=== PATIENT | male | born 1960 | race Caucasian/White ===

== ENCOUNTER 2018-10-07 16:13 | Emergency (ER) | payer MEDICAID, SELFPAY ==
[2018-10-07 16:14] VITALS: BP 184/98; PULSE 100; RESP 18; TEMP 36.6; O2SAT 93; BMI 25.7
--- NOTE | 2018-10-07 16:30 | ED.VISSUMM ---
- ER Visit Summary Date of Service: 10/07/18 Chief Complaint: Laceration History of Present Illness: The patient is a 58 M who cut his right index finger just prior to arrival when working on his lawnmower. Unsure of his tetanus status. No other associated complaints. Physical Examination: Patient has a 1.5 cm full-thickness linear laceration over his dorsal right index finger just proximal to the PIP joint. Extension intact. Neurovascular intact distally. No deformities. No other pertinent findings. Test Results: None indicated Emergency Department Course and Treatment: Digital block performed. Finger tourniquet applied. Wound was cleaned and explored. No deep structures are involved. Wound was closed with simple interrupted sutures. Patient was placed on Keflex prophylaxis. Tetanus was updated. Patient was given wound care instructions and will follow-up in 10 days. Return right away for any signs of infection or other complications. Treatment Plan: As above Disposition: Discharge Impression: 1. Laceration 1.5 cm right index finger This note was generated with [employer] dictation software. It may contain incorrect words, spelling, and punctuation that were not noted in review of the chart prior to signing ED Disposition - Plan for ED Patient: Referrals: Basim Palm DO [Primary Care Provider] -
--- NOTE | 2018-10-07 16:32 | ED.DEP ---
ED Disposition - Plan for ED Patient: Instructions: ED Laceration Hand Prescriptions: Cephalexin [Keflex] 500 mg PO Q6 #20 cap Referrals: Basim Palm DO [Primary Care Provider] - 10-14 Days suture removal
[2018-10-07] MEDS: Diphth,Pertuss(Acell),Tet Vac 0.5 ML Vial IM (16:41)
[2018-10-07] MEDS: Cephalexin 250 MG Capsule 500 MG PO (16:41)
== END 2018-10-07 17:00 | disposition home or self-care (01) ==
LOC: ED 16:39
PROVIDERS: Emergency Provider Emergency Medicine; Family Provider Student in an Organized Health Care Education/Training Program; PCP Student in an Organized Health Care Education/Training Program
DX: S61.210A Laceration without foreign body of right index finger without damage to nail, initial encounter (principal); W45.8XXA Other foreign body or object entering through skin, initial encounter; Y93.9 Activity, unspecified; Y92.89 Other specified places as the place of occurrence of the external cause; Y99.9 Unspecified external cause status; Z23 Encounter for immunization; Z72.0 Tobacco use
CPT/HCPCS: 12001; 90471; 90715; 99284

== ENCOUNTER 2018-10-26 07:40 | Emergency (ER) | payer MEDICAID, SELFPAY ==
[2018-10-26 07:41] VITALS: BP 155/91; PULSE 75; RESP 18; TEMP 36.6; O2SAT 100; BMI 24.3
--- NOTE | 2018-10-26 07:46 | ED.VIS.GEN ---
History of Present Illness Chief Complaint: Wound Check Informant: Patient Onset: Days - Sutures placed 19 days ago. Patient presents to have sutures removed Context: - - Not applicable Timing: Continuous Quality: No signs or symptoms of infection Location: PIP joint right index finger Current Severity: No discomfort Maximum Severity: Not applicable Worsened by: Nothing Relieved by: Nothing Associated Symptoms: No associated symptoms Narrative: Patient was seen on October 07 and had [address] Agusto Goel for laceration over the PIP joint right index finger. He presents today for removal. He denies erythema, warmth, induration, fluctuance or red streak. He denies limitation of movement. He states the finger is slightly stiff. Prior similar symptoms: Yes Recent Illness/Hospitalization: Yes Past Medical History - Allergies and Home Meds Allergies/Adverse Reactions: Allergies No Known Allergies Allergy (Verified 10/26/18 07:43) Primary Care Physician: Basim Palm DO [Primary Care Provider] - Prior records reviewed: Yes - Review ER visit for laceration Surgical History: no surgical history Lives: Alone Smoking Status: Current every day smoker Drugs: None Review of Systems Musculoskeletal: Denies: Myalgias, Swelling, Extremity Pain Neurological: Denies: Weakness, Parasthesia, Numbness Hematologic: Denies: Easy bruising, Easy bleeding Allergy: Denies: Uticaria, Swelling of the mouth Physical Exam Vital Signs/Narrative: Vital Signs Temp Pulse Resp BP Pulse Ox 10/26/18 07:41 97.9 F 75 18 155/91 H 100 Inital Vital Signs reviewed: Yes General: Well nourished, Well developed, No Acute Distress Head: Normocephalic, Atraumatic Eyes: Perrl, EOMI. Negative for: Pale conjunctiva, Scleral icterus, - ENT: Moist mucous membranes, No rhinorrhea Neck: Supple, Nontender Cardiovascular: Regular rate, Regular rhythm Respiratory: No distress Extremities: Nontender, No edema, - - Laxity of collateral ligament with stress testing. Full extension and flexion of the right index finger. Cap refill is normal. Sensations intact. Skin: Normal color, No rash, - - Healing wound with out evidence of infection. Negative for: Cyanosis, Jaundice Neurological: Alert, Oriented x3, Cranial nerves II-XII grossly intact, Normal Gait. Negative for: Normal Strength, Normal Sensation Psychological: Normal affect Diagnostic/Tx/Re-eval - Medical Decision Making Patient presents for wound evaluation and removal of stitches. There is no evidence of infection. Sutures to be removed. Discharge to home in stable condition with appropriate home-going instructions. ED Disposition - Plan for ED Patient: Disposition: Home or Assisted Living Diagnosis: Visit for suture removal, Encounter for evaluation of wound Instructions: ED Wound Check Sutr Remove No Infec Referrals: Basim Palm DO [Primary Care Provider] - As Needed
== END 2018-10-26 08:00 | disposition home or self-care (01) ==
PROVIDERS: Emergency Provider Emergency Medicine; Family Provider Student in an Organized Health Care Education/Training Program; PCP Student in an Organized Health Care Education/Training Program
DX: Z48.02 Encounter for removal of sutures (principal); F17.200 Nicotine dependence, unspecified, uncomplicated
CPT/HCPCS: 99282

== ENCOUNTER 2019-05-13 09:11 | Emergency (ER) | payer MEDICAID, SELFPAY ==
[2019-05-13 09:12] VITALS: BP 160/111; PULSE 77; RESP 16; TEMP 36.7; O2SAT 98; BMI 23.1
--- NOTE | 2019-05-13 09:34 | ED.DCSUM_ITS ---
History of Present Illness Chief Complaint: Dental Informant: Patient Onset: Weeks Maximum Severity: Mild Narrative: Presents complaining of dental decay involving the lower incisor type teeth he has had for a long time he is having pain there for some time as well he is scheduled see a dentist he reports the first of the year he indicates he has no way to manage his pain he came to the emergency department, he did not contact his dentist about the persistence of the pain, he has a prior history for lymphoma he believes and he required chemotherapy that condition is in his distant past he is otherwise been in good health Past Medical History - Allergies and Home Meds Allergies/Adverse Reactions: Allergies No Known Allergies Allergy (Verified 05/13/19 09:25) Primary Care Physician: Cha Powell PA [Primary Care Provider] - Past Medical History: - - History of lymphoma and chemotherapy in the distant past Surgical History: no surgical history Smoking Status: Current every day smoker Review of Systems General: Denies: Chills, Fever, Sweats Eyes: Denies: Visual changes - bilaterally, Diplopia ENT: Denies: Rhinorrhea, Sore throat Cardiovascular: Denies: Chest pain, Palpitations Respiratory: Denies: Dyspnea, Cough, Dyspnea on exertion Gastrointestinal: Denies: Abdominal pain, Nausea, Vomiting, Diarrhea, Melena, Hematochezia Genitourinary: Denies: Dysuria, Hematuria, Frequency Musculoskeletal: Denies: Back pain, Extremity Pain Skin: Denies: Rash, Wounds Neurological: Denies: Headache, Weakness, Numbness Physical Exam Vital Signs/Narrative: Vital Signs Temp Pulse Resp BP Pulse Ox 05/13/19 09:12 98.1 F 77 16 160/111 H 98 General: Well nourished, Well developed, No Acute Distress Head: Normocephalic, Atraumatic Eyes: Perrl, EOMI ENT: Moist mucous membranes, No rhinorrhea, - - He has marked dental decay invol ving the lower mandibular incisor teeth on both sides he has cavities and some his other teeth and some other extractions the airways intact for the mouth unremarkable neck is supple there is no swelling fullness or signs of deep- seated inch issues or infections Neck: Supple, Nontender Cardiovascular: Regular rate, Regular rhythm, No murmurs Respiratory: No distress, CTA bilaterally, Chest nontender Abdomen: Soft, Nontender, Nondistended, Normal bowel sounds Back: Nontender, Normal Inspection Extremities: Nontender, No edema Skin: Normal color, No rash Neurological: Alert, Oriented x3, Cranial nerves II-XII grossly intact, Normal Strength, Normal Sensation Psychological: Normal affect, Normal Mood Diagnostic/Tx/Re-eval - Medical Decision Making Given all the above the patient clearly has dental decay he may have an element of dental infection there is no signs of abscess he is eating and drinking well he also has issues of pain management, he will be started on Pen-Vee K Naprosyn I explained to him the only way to really address this condition is to have those teeth extracted and that cannot be done through the emergency department nor can the emergency department in an ongoing fashion manage his chronic pain he should seek his further management from his dental healthcare providers and other outpatient providers Home stable Final impression dental decay with pain ED Disposition - Plan for ED Patient: Diagnosis: Pain, dental Instructions: Dental Cavity, Dental Pain Prescriptions: Naproxen [Naprosyn] 500 mg PO BID PRN #20 tab Prescription Printed Penicillin Vk [Pen-Vee K 250MG] 500 mg PO 4X/DAY #40 tab Prescription Printed Referrals: Cha Powell PA [Primary Care Provider] -
== END 2019-05-13 09:48 | disposition home or self-care (01) ==
LOC: ED 09:26
PROVIDERS: Emergency Provider Emergency Medicine; Family Provider Physician Assistant; PCP Physician Assistant
DX: K02.9 Dental caries, unspecified (principal); Z85.72 Personal history of non-Hodgkin lymphomas; Z92.21 Personal history of antineoplastic chemotherapy; F17.200 Nicotine dependence, unspecified, uncomplicated
CPT/HCPCS: 99282

== ENCOUNTER 2021-04-02 21:03 | Inpatient (IN) | payer MEDICAID, SELFPAY ==
[2021-04-02 21:04] VITALS: BP 79/57; PULSE 74; RESP 15; TEMP 36.4; O2SAT 93; BMI 24.0
--- NOTE | 2021-04-02 21:14 | EKG12_ITS ---
Test Reason : DYSRHYTHMIA Blood Pressure : / mmHG Vent. Rate : 064 BPM Atrial Rate : 064 BPM P-R Int : 150 ms QRS Dur : 098 ms QT Int : 470 ms P-R-T Axes : 044 066 072 degrees QTc Int : 484 ms Sinus rhythm with Premature atrial complexes Nonspecific ST and T wave abnormality Prolonged QT Abnormal ECG Confirmed by BRITTANY WILD, LEON ([id number]), mapping editor SEJAL KRAFT ([id number]) on 04/04/2021 8:13:05 AM Referred By: JESSICA Confirmed By:LEON SOTO MD
[2021-04-02] MEDS: 0.9% Normal Saline 1,000 ML 1000 ML IV (21:18)
[2021-04-02 21:22] LABS: Absolute Lymphocyte Count 0.71 X10^3/uL (0.83-4.51); Absolute Neutrophil Count 3.7 X10^3/uL (2.0-7.7); Basophil# 0.03 X10^3/uL; Basophil% 0.6 % (0-1); Eosinophil# 0.02 X10^3/uL; Eosinophils% 0.4 % (0-5); Hematocrit 43.6 % (40-54); Lymphocyte # 0.71 X10^3/ul (0.83-4.51); Lymphocyte % 14.3 % (19-41); Mean Corp Hgb Conc 34.4 g/dL (32-36); Mean Corpuscular Hgb 32.8 pg (27.0-32.0); Mean Corpuscular Volume 95.2 fL (80-94); Mean Platelet Vol. 9.1 fl (6.2-12.0); Monocyte# 0.48 X10^3/uL; Monocyte% 9.7 % (0-10); NRBC Flagged by Analyzer 0 % (0-5); Neutrophil % 74.6 % (47-70); Platelet Count 258 K/mm3 (150-450); RBC Distribution Width CV 12.5 % (11.6-14.6); RBC Distribution Width SD 44.2 fl (35.1-43.9); Red Blood Count 4.58 M/mm3 (4.6-6.2)
[2021-04-02 21:28] LABS: International Normalized Ratio 1.1; Partial Thromboplast Time 31.4 Seconds (24.1-36.2); Prothrombin Time (Protime)PT. 13.2 SECONDS (11.7-14.9)
[2021-04-02 21:32] VITALS: BP 91/65; PULSE 67; RESP 18; O2SAT 94
[2021-04-02 21:45] LABS: ALB/GLOB Ratio 0.9 RATIO (0.9-2.4); AST(SGOT) 37 U/L (15-37); Alanine Aminotransfer ALT/SGPT 27 U/L (16-61); Albumin, Serum 3.6 g/dL (3.2-5.0); Alkaline Phosphatase 121 U/L (45-117); Anion Gap 8 (5-15); BUN 25 mg/dL (7-18); BUN/Creat Ratio 11.6 RATIO (10-20); Calcium,Total 8.9 mg/dL (8.5-10.1); Chloride 96 mmol/L (98-107); Creatinine, Serum 2.15 mg/dL (0.70-1.30); EST Glomerular Filtration Rate 33 mL/min (>60); Est Glom Filt Rate - Afr Amer 40 mL/min (>60); Estimated Creatinine Clearance 36.78 ml/min; Globulin 4.1 g/dL (2.2-4.2); Glucose 127 mg/dL (74-106); Potassium 3.6 mmol/L (3.5-5.1); Protein, Total 7.7 g/dL (6.4-8.2); Sodium Level 130 mmol/L (136-145); Troponin-I HS 17 pg/mL (3.0-78.0)
--- NOTE | 2021-04-02 21:45 | CT_ITS ---
EXAMINATION : Head CT w/out contrast HISTORY : Altered mental status COMPARISON : 07/11/2013. TECHNIQUE : Multiple contiguous axial images were obtained from the skull base to the vertex without intravenous contrast. A radiation dose optimization technique was used for this scan. FINDINGS : The ventricles and sulci are normal in size. There is no evidence for acute intracranial hemorrhage, mass effect, or midline shift. There is no extra-axial fluid collection. There is normal junior-white differentiation, without CT evidence of acute ischemia or infarct. The skull base and calvarium are unremarkable. The orbits are unremarkable. The paranasal sinuses are clear. The mastoid air cells are well-aerated. The soft tissues are unremarkable. Large partially visualized periapical lucency of the left maxillary molars. CT/Brain/Head without Contrast IMPRESSION: No acute intracranial abnormality. Dental abscesses of the left maxillary molars. Electronically Signed: Vargas Wang MD at 22:09 EST Tel , Service support ,
--- NOTE | 2021-04-02 21:50 | RAD_ITS ---
INDICATION: Cough EXAMINATION/TECHNIQUE: X-RAY - XR Chest 1 View COMPARISON: 05/19/2013. FINDINGS: The lungs are clear. The cardiomediastinal silhouette is unremarkable. No pleural effusion or pneumothorax. No acute osseous abnormalities. RAD/Chest 1 View (Portable) IMPRESSION: No acute radiographic abnormalities. Electronically Signed: Vargas Wang MD at 22:09 EST Tel , Service support ,
[2021-04-02 22:06] LABS: Lactic Acid 2.3 mmol/L (0.4-1.9)
[2021-04-02 22:20] VITALS: BP 98/59; PULSE 63; RESP 18; O2SAT 97
--- NOTE | 2021-04-02 22:51 | EX.ED.DYSGE1 ---
HPI History of Present Illness Chief Complaint: Alt LOC Informant: patient and EMS Onset/Context/Timing Onset: Today Context: Sudden Onset Timing: Continuous Quality: Weakness Location: Generalized Worsened by: Nothing Relieved by: Nothing Narrative Narrative: Patient presents with altered mental status and confusion that began today. EMS reports that began approximately 2 hours prior to arrival. Patient states it began rather suddenly. Patient denies any headaches. Patient does admit to some blurred vision. Patient also admits to some subjective chills. Patient states he feels weak all over. Patient also admits to some generalized numbness and tingling. Patient denies any nausea or vomiting. Patient denies any chest pain or shortness of breath. Patient is awake, alert, and oriented to person and place. When I asked him what the date was today he gave me his birthdate. [facility] Medical History (Updated 04/03/21 @ 00:[address] Jonathon Olsen DO) Weakness of left upper extremity Home Medications NK 04/02/21 [History Last Taken Unknown] Allergy/AdvReac Type Severity Reaction Status Date / Time No Known Allergies Allergy Verified 05/13/19 09:25 Surgical History unable to obtain unable to obtain Social History Smoking Status: Current every day smoker tobacco type: cigarettes ROS ROS ED Constitutional Constitutional ED: Reports chills and subjective; Denies fever(s) Eyes Eyes: Reports blurry vision; Denies change in vision ENT ENT ED: Denies rhinorrhea or sore throat Cardiovascular Cardiovascular: Denies chest pain or palpitations Respiratory/Chest Respiratory/Chest: Denies cough or dyspnea Gastrointestinal Gastrointestinal: Denies nausea or vomiting Genitourinary Genitourinary ED: Denies dysuria or hematuria Musculoskeletal Musculoskeletal: Denies back pain or neck pain Integumentary Denies abscess or rash Neurologic Neurologic: Reports weakness; Denies headache(s) Allergic/Immunologic Allergic/Immunologic ED: Denies mouth swelling or urticaria EXAM Physical Exam Const Vital Signs: 04/02/21 21:04 04/02/21 21:10 04/02/21 21:19 Temperature 97.6 F L Temperature Source Temporal Pulse Rate 74 Respiratory Rate 15 Respiratory Effort Normal Non-Labored Respiratory Pattern Normal Blood Pressure 79/57 L Blood Pressure Mean 64 Pulse Ox 93 Oxygen Delivery Method Room Air Room Air 04/02/21 21:32 04/02/21 22:20 04/02/21 23:01 Temperature Temperature Source Pulse Rate 67 63 66 Respiratory Rate 18 18 18 Respiratory Effort Respiratory Pattern Blood Pressure 91/65 98/59 L 122/65 H Blood Pressure Mean 73 72 84 Pulse Ox 94 97 93 Oxygen Delivery Method Room Air Room Air Room Air 04/03/21 00:07 Temperature Temperature Source Pulse Rate 70 Respiratory Rate 18 Respiratory Effort Respiratory Pattern Blood Pressure 124/74 H Blood Pressure Mean 90 Pulse Ox 94 Oxygen Delivery Method Room Air Positive well nourished and well developed General Appearance ED: well developed and NAD HEENT Reports moist mucous membranes Eyes PERRL and EOMs intact bilaterally Neck supple and no JVD Resp normal respiratory effort and clear to auscultation bilaterally Cardio regular rate and regular rhythm GI normal to inspection, nondistended, normoactive bowel sounds and non-tender Palpation: soft Extremity normal to inspection Neuro CN's II-XII intact bilaterally and no sensory deficits noted Sensorium / Orientation: alert and orientation impaired Skin no rashes or lesions noted MDM MDM MDM Narrative Medical decision making narrative: Patient was given IV fluids. EKG was obtained. On my interpretation, it showed a normal sinus rhythm with a rate of 64 with occasional PACs. IN interval, QRS interval, and QTc intervals were all normal. [place] was normal. There are nonspecific ST-T wave changes. CBC was within normal limits. PT with INR and PTT were normal. Comprehensive metabolic profile showed a sodium of 130. BUN was 25 and creatinine was 2.15. These are increased from prior results. Lactate was elevated 2.3. High-sensitivity troponin was normal at 17. Portable 1 view chest x-ray was obtained. On my interpretation, lung tian are clear. There is normal cardiac silhouette. Bony thorax is normal. There is no acute process noted. Radiologist also interpreted the x-ray and agrees. CT scan of the brain was obtained. There is no acute intracranial abnormality. There are dental abscesses of the left maxillary molars. This was interpreted by the radiologist and reviewed by myself. Urinalysis showed negative leukocyte esterase. There were 5-10 white blood cells. There is 3+ bacteria. Urine cultures were ordered. Blood cultures were ordered. Patient was started on Zosyn and vancomycin. Case was discussed with the hospitalist. He will admit the patient to his service. Patient understood and was agreeable with the plan. All questions were answered. Lab Data Attestation: I reviewed the patient's lab results. Labs: Laboratory Results - last 24 hr 04/02/21 04/02/21 04/02/21 21:08 21:08 21:08 WBC 5.0 RBC 4.58 L Hgb 15.0 Hct 43.6 MCV 95.2 H MCH 32.8 H MCHC 34.4 RDW Std Deviation 44.2 H RDW Coeff of Tony 12.5 Plt Count 258 MPV 9.1 Immature Gran % (Auto) 0.400 Neut % (Auto) 74.6 H Lymph % (Auto) 14.3 L [place] % (Auto) 9.7 Eos % (Auto) 0.4 Baso % (Auto) 0.6 Absolute Neuts (auto) 3.7 Absolute Lymphs (auto) 0.71 L Nucleated RBC % 0 PT 13.2 INR 1.1 APTT 31.4 Sodium 130 L Potassium 3.6 Chloride 96 L Carbon Dioxide 26.0 Anion Gap 8 BUN 25 H Creatinine 2.15 H Estim Creat Clear Calc 36.78 Est GFR (MDRD) Af Amer 40 L Est GFR (MDRD) Non-Af 33 L BUN/Creatinine Ratio 11.6 Glucose 127 H Lactic Acid Calcium 8.9 Total Bilirubin 0.50 AST 37 ALT 27 Alkaline Phosphatase 121 H Troponin I High Sens 17 Total Protein 7.7 Albumin 3.6 Globulin 4.1 Albumin/Globulin Ratio 0.9 Urine Color Urine Clarity Urine pH Ur Specific [place] Urine Protein Urine Glucose (UA) Urine Ketones Urine Occult Blood Urine Nitrite Urine Bilirubin Urine Urobilinogen Ur Leukocyte Esterase Urine RBC Urine WBC Ur Squamous Epith Cells Urine Bacteria Hyaline Casts Urine Mucus 04/02/21 04/02/21 04/02/21 21:08 23:15 23:15 WBC RBC Hgb Hct MCV MCH MCHC RDW Std Deviation RDW Coeff of Tony Plt Count MPV Immature Gran % (Auto) Neut % (Auto) Lymph % (Auto) [place] % (Auto) Eos % (Auto) Baso % (Auto) Absolute Neuts (auto) Absolute Lymphs (auto) Nucleated RBC % PT INR APTT Sodium Potassium Chloride Carbon Dioxide Anion Gap BUN Creatinine Estim Creat Clear Calc Est GFR (MDRD) Af Amer Est GFR (MDRD) Non-Af BUN/Creatinine Ratio Glucose Lactic Acid 2.3 H* Calcium Total Bilirubin AST ALT Alkaline Phosphatase Troponin I High Sens 14 Total Protein Albumin Globulin Albumin/Globulin Ratio Urine Color Yellow Urine Clarity Clear Urine pH 5.0 Ur Specific [place] 1.020 Urine Protein 30 H Urine Glucose (UA) Normal Urine Ketones 5 H Urine Occult Blood 50 H Urine Nitrite Negative Urine Bilirubin Negative Urine Urobilinogen Normal Ur Leukocyte Esterase Negative Urine RBC 0 SEEN Urine WBC 5-10 SEEN Ur Squamous Epith Cells 0 SEEN Urine Bacteria 3+ Hyaline Casts 50-100 SEEN Urine Mucus 2+ Radiography Chest X-Ray - ED: 1 View, Read by ED Physician, Read by Radiologist and Normal Diagnostic Testing: Clinical Impression(s) from Imaging Studies Brain CT 04/02/21 21:45 IMPRESSION: No acute intracranial abnormality. Dental abscesses of the left maxillary molars. Electronically Signed: Vargas Wang MD at 22:09 EST Tel , Service support , Chest X-Ray 04/02/21 21:50 IMPRESSION: No acute radiographic abnormalities. Electronically Signed: Vargas Wang MD at 22:09 EST Tel , Service support , EKG Initial EKG: Attestation: I personally reviewed and interpreted this EKG as follows: Interpretation: Sinus Rhythm (64), No Acute Injury Pattern and Non-Specific ST Changes Prior EKG tracings: not available for review Discharge Plan Dx/Rx/DC Orders Clinical Impression: Altered mental status, Sepsis, Acute kidney injury Disposition Disposition: Acute Care [facility]
[2021-04-02 23:01] VITALS: BP 122/65; PULSE 66; RESP 18; O2SAT 93
--- NOTE | 2021-04-02 23:02 | ED.RN ---
PT UNABLE TO VOID ON HIS HOME AFTER MULTIPLE ATTEMPTS,WILL STRAIGHT CATH.
[2021-04-02 23:20] LABS: Red Blood Cells-Urine 0 SEEN /hpf (0-5); Squamous Epithelial Cells - UA 0 SEEN /hpf (0-5)
[2021-04-02 23:26] LABS: Color, Urine Yellow (Yellow); Glucose, Dipstick Normal (Normal); Ketone-Dipstick 5 mg/dl (Negative); Leukocyte Esterase-Dipstick Negative /ul (Negative); Nitrite-Dipstick Negative (Negative); Occult Blood-Urine 50 /ul (Negative); Protein-Dipstick 30 mg/dl (Negative); Urine Bilirubin Dipstick Negative (Negative); Urine Clarity Clear (Clear); Urine Urobilinogen Normal (Normal)
[2021-04-02 23:46] LABS: Troponin-I HS 14 pg/mL (3.0-78.0)
[2021-04-02 23:56] LABS: Bacteria 3+ /hpf (None Seen); Hyaline Cast 50-100 SEEN /lpf (0-5); Mucous, Urine 2+ /hpf (<or=2+); White Blood Cells 5-10 SEEN /hpf (0-5)
[2021-04-03] VITALS (13 sets, daily range): BP systolic 124–153; BP diastolic 65–85; PULSE 64–85; RESP 16–18; TEMP 36.1–37.2; O2SAT 94–98; BMI 20.9
--- NOTE | 2021-04-03 00:59 | HP.PCM.HOS_ITS ---
HPI - General General Date of Admission: 04/03/21 Date of Service: 04/03/21 Chief Complaint: confusion. malaise HPI Narrative CAITIE JIN, is a 60 M who presents presents with general malaise and weakness. Additionally, patient was noted to be confused as well. Patient stated the symptoms began on the seventh. Feels short of breath and weak all over. Complaint to the emergency room physician about blurred vision. Patient denies any COVID-19 contacts but has not been vaccinated for COVID-19. FORMERLY [facility] Medical History Weakness of left upper extremity Home Medications NK 04/02/21 [History Last Taken Unknown] Allergy/AdvReac Type Severity Reaction Status Date / Time No Known Allergies Allergy Verified 05/13/19 09:25 unable to obtain Surgical History unable to obtain Social History Smoking Status: Current every day smoker tobacco type: cigarettes ROS UMM Narrative Has chronic left arm weakness due to some infection that he had. Cannot tell me specifically what that was but he stated that may have been at [facility]. Did develop some swelling on his right side of his neck that he said began a week ago. All review of systems were negative except as mentioned above in the history of present illness and the other review of systems. But reliability is limited given the patient's confusion Vital Signs Vital Signs Vital Signs: 04/02/21 21:04 04/02/21 21:10 04/02/21 21:19 Temperature 36.4 C L Temperature Source Temporal Pulse Rate 74 Respiratory Rate 15 Respiratory Effort Normal Non-Labored Respiratory Pattern Normal Blood Pressure 79/57 L Blood Pressure Mean 64 Pulse Ox 93 Oxygen Delivery Method Room Air Room Air 04/02/21 21:32 04/02/21 22:20 04/02/21 23:01 Temperature Temperature Source Pulse Rate 67 63 66 Respiratory Rate 18 18 18 Respiratory Effort Respiratory Pattern Blood Pressure 91/65 98/59 L 122/65 H Blood Pressure Mean 73 72 84 Pulse Ox 94 97 93 Oxygen Delivery Method Room Air Room Air Room Air 04/03/21 00:07 Temperature Temperature Source Pulse Rate 70 Respiratory Rate 18 Respiratory Effort Respiratory Pattern Blood Pressure 124/74 H Blood Pressure Mean 90 Pulse Ox 94 Oxygen Delivery Method Room Air Weight Weight: 76.2 kg Body Mass Index (BMI) 24.0 Physical Exam Const Constitutional Narrative: Oriented to place and date. Does not follow commands properly. Does not establish eye contact. Afebrile HEENT normocephalic and hearing grossly normal bilaterally HEENT Narrative: Mucous membranes dry Eyes EOMs intact bilaterally Eyes Narrative: No icterus Neck Neck Narrative: Discrete swelling on right lateral neck that is nontender without induration. Resp normal respiratory effort, no retractions and no use of accessory muscles Cardio regular rate, regular rhythm, S1 normal heart sound and S2 normal heart sound GI normal to inspection, nondistended, normoactive bowel sounds, soft to palpation, non-tender and non-distended Extremity normal to inspection and no clubbing, cyanosis or edema Skin no rashes or lesions noted and no wounds Neuro Neuro Narrative: Does not follow commands correctly. Moves his right upper and bilateral lower extremities spontaneously. Has difficulty moving his left arm. Sensorium / Orientation: awake and alert Results Lab / Micro Data Attestation: I reviewed the patient's lab results. Result Diagrams: 04/02/21 21:08 04/02/21 21:08 Labs: Laboratory Results - last 24 hr 04/02/21 21:08: WBC 5.0, RBC 4.58 L, Hgb 15.0, Hct 43.6, MCV 95.2 H, MCH 32.8 H, MCHC 34.4, RDW Std Deviation 44.2 H, RDW Coeff of Tony 12.5, Plt Count 258, MPV 9.1, Immature Gran % (Auto) 0.400, Neut % (Auto) 74.6 H, Lymph % (Auto) 14.3 L, [place] % (Auto) 9.7, Eos % (Auto) 0.4, Baso % (Auto) 0.6, Absolute Neuts (auto) 3.7, Absolute Lymphs (auto) 0.71 L, Nucleated RBC % 0 04/02/21 21:08: PT 13.2, INR 1.1, APTT 31.4 04/02/21 21:08: Sodium 130 L, Potassium 3.6, Chloride 96 L, Carbon Dioxide 26.0, Anion Gap 8, BUN 25 H, Creatinine 2.15 H, Estim Creat Clear Calc 36.78, Est GFR (MDRD) Af Amer 40 L, Est GFR (MDRD) Non-Af 33 L, BUN/Creatinine Ratio 11.6, Glucose 127 H, Calcium 8.9, Total Bilirubin 0.50, AST 37, ALT 27, Alkaline Phosphatase 121 H, Troponin I High Sens 17, Total Protein 7.7, Albumin 3.6, Globulin 4.1, Albumin/Globulin Ratio 0.9 04/02/21 21:08: Lactic Acid 2.3 H* 04/02/21 23:15: Urine Color Yellow, Urine Clarity Clear, Urine pH 5.0, Ur Specific [place] 1.020, Urine Protein 30 H, Urine Glucose (UA) Normal, Urine Ketones 5 H, Urine Occult Blood 50 H, Urine Nitrite Negative, Urine Bilirubin Negative, Urine Urobilinogen Normal, Ur Leukocyte Esterase Negative, Urine RBC 0 SEEN, Urine WBC 5-10 SEEN, Ur Squamous Epith Cells 0 SEEN, Urine Bacteria 3+, Hyaline Casts 50-100 SEEN, Urine Mucus 2+ 04/02/21 23:15: Troponin I High Sens [address] 04/02/21 21:45 IMPRESSION: No acute intracranial abnormality. Dental abscesses of the left maxillary molars. Electronically Signed: Vargas Wang MD at 22:09 EST Tel , Service support , Chest X-Ray 04/02/21 21:50 IMPRESSION: No acute radiographic abnormalities. Electronically Signed: Vargas Wang MD at 22:09 EST Tel , Service support , Assessment & Plan Assessment/Plan (1) Sepsis: QUALIFIERS: Sepsis type: sepsis due to unspecified organism Sepsis acute organ dysfunction status: with acute organ dysfunction Severe sepsis acute organ dysfunction type: acute renal failure Acute renal failure type: unspecified Severe sepsis shock status: without septic shock Qualified Code(s): A41.9 - Sepsis, unspecified organism; R65.20 - Severe sepsis without septic shock; N17.9 - Acute kidney failure, unspecified (2) Altered mental status: QUALIFIERS: Altered mental status type: delirium Qualified Code(s): R41.0 - Disorientation, unspecified (3) Acute kidney injury: PLAN: 1. Sepsis * qSOFA score of 2 for change in mental status and hypotension. * Sources not identified at this time. * I do not feel the patient has urinary tract infection so I do not feel that is the source * Check him for COVID-19, follow-up blood cultures, urine culture * But I am also very concerned about his confusion though he is alert and oriented x3 he still confused. * Patient relates that he had some kind of infection that caused him to have left-sided weakness but cannot specify what that was. * So ordered a lumbar puncture to evaluate * Patient will be on antibiotics with vancomycin, ceftriaxone, azithromycin and dexamethasone in case is a meningitis type picture. * Consult infectious disease 2. Change in mental status * Possibilities could be from sepsis plus minus meningitis/encephalitis versus stroke * Stroke work-up with MRI, echocardiogram, therapy evaluation * Start aspirin, but hold until lumbar puncture can be performed 3. Acute kidney injury * This is presumed. Last creatinine was normal back in 2013 * If it is acute then is likely prerenal as he appears clinically dry * IV fluids * And monitor 4. VTE prophylaxis: SCDs for now pending the lumbar puncture. Charges/Coding Visit Charges Inpatient E&M: 13712 Init Hosp L3
[2021-04-03 01:19] LABS: Reflex Lactate? Y
--- NOTE | 2021-04-03 01:41 | ECHOD_ITS ---
Reason For Study: TIA/CVA Procedure This was a 2D Doppler, Color Flow transthoracic echocardiogram. Bubble study performed. Exam performed portable in patient room. Left Ventricle Normal LV size. Left ventricular systolic function is normal. The estimated ejection fraction is 65 %. No evidence for diastolic dysfunction. No regional wall motion abnormalities noted. Right Ventricle Normal RV size. Normal systolic function. Atria Normal left atrium. Normal right atrium. Positive agitated saline contrast study for a right to left interatrial shunt compatible with a small PFO versus ASD. Mitral Valve There is no mitral annular calcification. Normal mitral valve. Trivial mitral valve insufficiency. Tricuspid Valve Normal tricuspid valve. Trivial tricuspid valve insufficiency. Unable to estimate RV systolic pressure due to insufficient tricuspid regurgitant envelope. Aortic Valve Trisinus/trileaflet aortic valve. Mild focal aortic valve calcification. Pulmonic Valve The pulmonic valve is not well visualized. Great Vessels The aortic root is not well visualized. Pericardium/Pleural No pericardial effusion. Medication Performed a rapid injection of agitated mix of 9 cc saline and 1cc air to assess for atrial septal defect. MMode/2D Measurements & Calculations LVIDd: 4.1 cm IVSd: 1.2 cm LA dimension: 2.7 cm LVIDs: 2.8 cm LVPWd: 1.4 cm FS: 30.5 % LAV(MOD-bp): 27.7 ml LA A4 area: 12.9 cm2 RA A4 area: 10.9 cm2 LAV(MOD-bp) Indexed: 14.5 ml/m2 LAV(MOD-sp2): 24.3 ml LAV(MOD-sp4): 28.7 ml Time Measurements MV dec time: 0.33 sec Doppler Measurements & Calculations MV E max perry: 59.1 cm/sec Lat Peak E' Perry: 7.5 cm/sec Med Peak E' Perry: 7.4 cm/sec MV A max perry: 80.2 cm/sec E/E' lat: 7.9 E/E' med: 8.0 MV E/A: 0.74 MV V2 max: 79.4 cm/sec MV P1/2t max perry: 60.0 cm/sec Ao V2 max: 113.6 cm/sec MV max P.5 mmHg MV P1/2t: 85.0 msec Ao max P.2 mmHg MV V2 mean: 46.3 cm/sec MV dec slope: 206.6 cm/sec2 MV mean P.96 mmHg MV V2 VTI: 21.1 cm MVA(P1/2t): 2.6 cm2 LV V1 max: 102.1 cm/sec PA V2 max: 89.6 cm/sec LV V1 max P.2 mmHg ECHO/Echo Complete Interpretation Summary Left ventricular systolic function is normal. The estimated ejection fraction is 65 %. Trivial mitral valve insufficiency. Trivial tricuspid valve insufficiency. Mild focal aortic valve calcification. Unable to estimate RV systolic pressure due to insufficient tricuspid regurgita nt envelope. No evidence for diastolic dysfunction. Positive agitated saline contrast study for a right to left interatrial shunt c ompatible with a small PFO versus ASD. Ordering Physician: Jonathon Michael Referring Physician: Gavin Powell Performed By: Noah Rangel RCS
--- NOTE | 2021-04-03 02:19 | PCM.RX.CS ---
Consult Pharmacy has been consulted to manage selected antiobiotic: Vancomycin Type of Consult: New start Labs: Sodium 130 mmol/L (136-145) L 04/02/21 21:08 Potassium 3.6 mmol/L (3.5-5.1) 04/02/21 21:08 Chloride 96 mmol/L (98-107) L 04/02/21 21:08 Carbon Dioxide 26.0 mmol/L (21.0-32.0) 04/02/21 21:08 Anion Gap 8 (5-15) 04/02/21 21:08 BUN 25 mg/dL (7-18) H 04/02/21 21:08 Creatinine 2.15 mg/dL (0.70-1.30) H 04/02/21 21:08 Est GFR (MDRD) Af Amer 40 mL/min (>60) L 04/02/21 21:08 Est GFR (MDRD) Non-Af 33 mL/min (>60) L 04/02/21 21:08 BUN/Creatinine Ratio 11.6 RATIO (10-20) 04/02/21 21:08 Glucose 127 mg/dL (74-106) H 04/02/21 21:08 Goal Trough: 15-20 mcg/mL Pharmacy Plan for Drug Dosing: Pharmacy Service will continue to monitor and adjust dosing as required. Medications Vancomycin HCl 2,000 mg/ (Sodium Chloride) 540 mls @ 250 mls/hr IV X1 ONE Stop: 04/03/21 02:20 Last Admin: 04/03/21 01:19 Dose: 250 mls/hr Documented by: Vancomycin HCl (Vancomycin) 1,000 mg in 200 mls @ 200 mls/hr IV Q24H EZEQUIEL Follow-Up Labs: Trough Vancomycin Labs to be done on [date and time ordered]: 04/05 @ 0030
[2021-04-03 03:12] LABS: Lactic Acid 0.5 mmol/L (0.4-1.9)
[2021-04-03] MEDS: 0.9% Normal Saline 1,000 ML 150 ML IV (04:12)
[2021-04-03 04:32] LABS: Troponin-I HS 11 pg/mL (3.0-78.0)
[2021-04-03] MEDS: dexAMETHasone 20 MG/5 ML Vial 10 MG IV (05:33)
[2021-04-03] MEDS: Acyclovir 750 MG in Dextrose 5% 250 ML 265 MG IV (05:33)
[2021-04-03 07:10] LABS: Absolute Neutrophil Count 3.9 X10^3/uL (2.0-7.7); Basophil# 0.02 X10^3/uL; Basophil% 0.4 % (0-1); Hematocrit 39.9 % (40-54); Hemoglobin 13.7 g/dL (13.0-16.5); Lymphocyte % 10.4 % (19-41); Mean Corp Hgb Conc 34.3 g/dL (32-36); Mean Corpuscular Hgb 32.1 pg (27.0-32.0); Mean Corpuscular Volume 93.4 fL (80-94); Mean Platelet Vol. 9.4 fl (6.2-12.0); Monocyte# 0.42 X10^3/uL; Monocyte% 8.7 % (0-10); NRBC Flagged by Analyzer 0 % (0-5); Neutrophil # 3.85 X10^3/uL (2.7-7.7); Neutrophil % 80.1 % (47-70); POSITIVE DIFFERENTIAL YES; Platelet Count 236 K/mm3 (150-450); RBC Distribution Width CV 12.5 % (11.6-14.6); Red Blood Count 4.27 M/mm3 (4.6-6.2); White Blood Count 4.8 K/mm3 (4.4-11.0)
[2021-04-03 07:13] LABS: ALB/GLOB Ratio 0.8 RATIO (0.9-2.4); AST(SGOT) 33 U/L (15-37); Alanine Aminotransfer ALT/SGPT 23 U/L (16-61); Albumin, Serum 2.9 g/dL (3.2-5.0); Alkaline Phosphatase 105 U/L (45-117); Anion Gap 5 (5-15); BUN 24 mg/dL (7-18); BUN/Creat Ratio 16.8 RATIO (10-20); Calcium,Total 7.9 mg/dL (8.5-10.1); Chloride 103 mmol/L (98-107); Cholesterol 120 mg/dL (200); Creatinine, Serum 1.43 mg/dL (0.70-1.30); EST Glomerular Filtration Rate 53 mL/min (>60); Est Glom Filt Rate - Afr Amer 64 mL/min (>60); Estimated Creatinine Clearance 56.21 ml/min; Globulin 3.7 g/dL (2.2-4.2); Glucose 107 mg/dL (74-106); High Density Lipoprotein 47 mg/dL; Potassium 3.9 mmol/L (3.5-5.1); Protein, Total 6.6 g/dL (6.4-8.2); Sodium Level 132 mmol/L (136-145); Triglycerides 55 mg/dL; Very Low Density Lipoprotein 11 mg/dL (5-40)
--- NOTE | 2021-04-03 07:15 | PN.HOSP_ITS ---
Objective Data Objective Data Vital Signs: Vital Signs Temp Pulse Resp BP Pulse Ox 97.0 F L 77 18 153/82 H 95 04/03/21 05:30 04/03/21 07:13 04/03/21 05:30 04/03/21 05:30 04/03/21 05:30 Oxygen Delivery Method Room Air Weight: 163 lb 9.328 oz Body Mass Index (BMI) 20.9 Intake & Output: Intake and Output for Last 24 Hours 04/02/21 04/02/21 04/03/21 00:59 23:59 23:59 Intake Total 1110 / 1110 Output Total 300 / 300 Balance 810 / 810 Lab / Micro Data Result Diagrams: 04/02/21 21:08 04/03/21 03:30 Labs: Laboratory Results - last 24 hr 04/02/21 21:08: WBC 5.0, RBC 4.58 L, Hgb 15.0, Hct 43.6, MCV 95.2 H, MCH 32.8 H, MCHC 34.4, RDW Std Deviation 44.2 H, RDW Coeff of Tony 12.5, Plt Count 258, MPV 9.1, Immature Gran % (Auto) 0.400, Neut % (Auto) 74.6 H, Lymph % (Auto) 14.3 L, [place] % (Auto) 9.7, Eos % (Auto) 0.4, Baso % (Auto) 0.6, Absolute Neuts (auto) 3.7, Absolute Lymphs (auto) 0.71 L, Nucleated RBC % 0 04/02/21 21:08: PT 13.2, INR 1.1, APTT 31.4 04/02/21 21:08: Sodium 130 L, Potassium 3.6, Chloride 96 L, Carbon Dioxide 26.0, Anion Gap 8, BUN 25 H, Creatinine 2.15 H, Estim Creat Clear Calc 36.78, Est GFR (MDRD) Af Amer 40 L, Est GFR (MDRD) Non-Af 33 L, BUN/Creatinine Ratio 11.6, Glucose 127 H, Calcium 8.9, Total Bilirubin 0.50, AST 37, ALT 27, Alkaline Phosphatase 121 H, Troponin I High Sens 17, Total Protein 7.7, Albumin 3.6, Globulin 4.1, Albumin/Globulin Ratio 0.9 04/02/21 21:08: Lactic Acid 2.3 H* 04/02/21 23:15: Urine Color Yellow, Urine Clarity Clear, Urine pH 5.0, Ur Specific [place] 1.020, Urine Protein 30 H, Urine Glucose (UA) Normal, Urine Ketones 5 H, Urine Occult Blood 50 H, Urine Nitrite Negative, Urine Bilirubin Negative, Urine Urobilinogen Normal, Ur Leukocyte Esterase Negative, Urine RBC 0 SEEN, Urine WBC 5-10 SEEN, Ur Squamous Epith Cells 0 SEEN, Urine Bacteria 3+, Hyaline Casts 50-100 SEEN, Urine Mucus 2+ 04/02/21 23:15: Troponin I High Sens 14 04/03/21 02:30: Lactic Acid 0.5 04/03/21 03:15: Troponin I High Sens 11 04/03/21 03:30: Sodium 132 L, Potassium 3.9, Chloride 103, Carbon Dioxide 24.0, Anion Gap 5, BUN 24 H, Creatinine 1.43 H, Estim Creat Clear Calc 56.21, Est GFR (MDRD) Af Amer 64, Est GFR (MDRD) Non-Af 53 L, BUN/Creatinine Ratio 16.8, Glucose 107 H, Calcium 7.9 L, Total Bilirubin 0.40, AST 33, ALT 23, Alkaline Phosphatase 105, Total Protein 6.6, Albumin 2.9 L, Globulin 3.7, Albumin/Globulin Ratio 0.8 L, Triglycerides 55, Cholesterol 120, LDL Cholesterol 62, VLDL Cholesterol 11, HDL Cholesterol 47 Micro: Microbiology 04/03/21 02:00 Nasal Secretion SARS-CoV-2 Antigen (Rapid) - Final Radiography Diagnostic Testing: Radiology Impression Brain CT 04/02/21 21:45 IMPRESSION: No acute intracranial abnormality. Dental abscesses of the left maxillary molars. Electronically Signed: Vargas Wang MD at 22:09 EST Tel , Service support , Chest X-Ray 04/02/21 21:50 IMPRESSION: No acute radiographic abnormalities. Electronically Signed: Vargas Wang MD at 22:09 EST Tel , Service support , Assessment & Plan Assessment/Plan (1) Sepsis: QUALIFIERS: Sepsis type: sepsis due to unspecified organism Sepsis acute organ dysfunction status: with acute organ dysfunction Severe sepsis acute organ dysfunction type: acute renal failure Acute renal failure type: unspecified Severe sepsis shock status: without septic shock Qualified Code(s): A41.9 - Sepsis, unspecified organism; R65.20 - Severe sepsis without septic shock; N17.9 - Acute kidney failure, unspecified (2) Altered mental status: QUALIFIERS: Altered mental status type: delirium Qualified Code(s): R41.0 - Disorientation, unspecified (3) Acute kidney injury: PLAN: 1. Sepsis * qSOFA score of 2 for change in mental status and hypotension. * Sources not identified at this time. * I do not feel the patient has urinary tract infection so I do not feel that is the source * Check him for COVID-19, follow-up blood cultures, urine culture * But I am also very concerned about his confusion though he is alert and oriented x3 he still confused. * Patient relates that he had some kind of infection that caused him to have left-sided weakness but cannot specify what that was. * So ordered a lumbar puncture to evaluate * Patient will be on antibiotics with vancomycin, ceftriaxone, azithromycin and dexamethasone in case is a meningitis type picture. * Consult infectious disease 2. Change in mental status * Possibilities could be from sepsis plus minus meningitis/encephalitis versus stroke * Stroke work-up with MRI, echocardiogram, therapy evaluation * Start aspirin, but hold until lumbar puncture can be performed 3. Acute kidney injury * This is presumed. Last creatinine was normal back in 2013 * If it is acute then is likely prerenal as he appears clinically dry * IV fluids * And monitor 4. VTE prophylaxis: SCDs for now pending the lumbar puncture.
[2021-04-03 07:26] LABS: Differential Indicated SCAN CRITERIA MET
--- NOTE | 2021-04-03 11:37 | PCM.RX.CS ---
Consult Pharmacy has been consulted to manage selected antiobiotic: Vancomycin Type of Consult: Follow-up Labs: Sodium 132 mmol/L (136-145) L 04/03/21 03:30 Potassium 3.9 mmol/L (3.5-5.1) 04/03/21 03:30 Chloride 103 mmol/L (98-107) 04/03/21 03:30 Carbon Dioxide 24.0 mmol/L (21.0-32.0) 04/03/21 03:30 Anion Gap 5 (5-15) 04/03/21 03:30 BUN 24 mg/dL (7-18) H 04/03/21 03:30 Creatinine 1.43 mg/dL (0.70-1.30) H 04/03/21 03:30 Est GFR (MDRD) Af Amer 64 mL/min (>60) 04/03/21 03:30 Est GFR (MDRD) Non-Af 53 mL/min (>60) L 04/03/21 03:30 BUN/Creatinine Ratio 16.8 RATIO (10-20) 04/03/21 03:30 Glucose 107 mg/dL (74-106) H 04/03/21 03:30 Microbiology: Microbiology 04/03/21 02:00 Nasal Secretion SARS-CoV-2 Antigen (Rapid) - Final Goal Trough: 15-20 mcg/mL Pharmacy Plan for Drug Dosing: DAILY ASSESSMENT Current Vancomcyin Dose: 1000mg q24h (0100) Number of Doses Received: x1 2000mg ER dose Current Renal Function: SrCr 1.43 Renal Function Trend: SrCr improved from 2.15 Lab/Micro: Any Change in Vanc Plan: due to improving renal function, recommend changing Vancomycin dose from 1000mg q24h, to 750mg q12h starting 04/03/21 at 1300. Trough before the 4th total dose Pending Level: 04/04/21 at 1230 Pharmacy Service will continue to monitor and adjust dosing as required. Follow-Up Labs: Trough Vancomycin - 04/04/21 at 1230
--- NOTE | 2021-04-03 13:15 | CPS ---
Patient refusing covid PCR swab. RN aware.
--- NOTE | 2021-04-03 13:31 | DS.PCM_ITS ---
Providers Date of Admission: 04/03/21 Primary Care Physician: SILVIO Mejias Consultations 04/03/21 01:41 Consult: Infectious Disease Routine Consulting Provider: José Miguel Desouza Reason for Consult: sepsis EMERGENT Consult: No MD Notified: Yes Date Notified: 04/03/21 Time Notified: 06:50 Method of Notification: Text Reason For Visit: SEPSIS, ENCEPHALOPATHY Diagnosis Discharge Diagnosis (1) Sepsis: Status: Acute Code(s): A41.9 - Sepsis, unspecified organism Qualifiers: Acute renal failure type: unspecified Sepsis acute organ dysfunction status: with acute organ dysfunction Sepsis type: sepsis due to unspecified organism Severe sepsis acute organ dysfunction type: acute renal failure Severe sepsis shock status: without septic shock Qualified Code(s): A41.9 - Sepsis, unspecified organism; R65.20 - Severe sepsis without septic shock; N17.9 - Acute kidney failure, unspecified (2) Altered mental status: Status: Acute Code(s): R41.82 - Altered mental status, unspecified Qualifiers: Altered mental status type: delirium Qualified Code(s): R41.0 - Disorientation, unspecified (3) Acute kidney injury: Status: Acute Code(s): N17.9 - Acute kidney failure, unspecified Medications at Discharge Home Medications NK 04/02/21 Hospital Course Summary of Care Provided Hospital Course: This 60-year-old woman was admitted with general malaise and weakness. Rapid Covid antigen is negative. Patient was admitted in PCU. There was no fever but working diagnosis was sepsis with qSOFA score of 2 for change in mental status and hypotension. Lactic acid normal. Blood culture urine culture ordered. Patient confusion went away and became more alert and awake and oriented x3. Denies photophobia. Patient does not have any focal weakness or lateralization sign. Lumbar puncture was ordered and patient was started on empiric vancomycin ceftriaxone and azithromycin dexamethasone. ID was consulted. Urinary antigens are negative. Blood culture is pending.2D echo was done shows EF 65% trivial MR and TR. patient was seen by ID and thinks he does not have meningitis. 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 In the meantime patient wants to saying AMA. Patient is awake informed decision making capacity therefore signed AMA. Acute mental status change resolved. Patient has other active medical issues including acute kidney injury most likely presumed: Creatinine improved from 2.15-1.43. Patient is making urine. His last creatinine was 0.8 in 06/2013 Patient said AGAINST MEDICAL ADVICE. Patient understands the risk of signing AMA and duration of his medical condition including Physical Exam Narrative Seen and examined in the morning. Patient is awake alert oriented x3. He said he was confused and little foggy in thinking yesterday night. No headache. No photophobia. General: Alert, Oriented x3, Cooperative HEENT: Atraumatic, PERRLA, EOMI, Normocephalic Oral: No Gingival or Mucosal Lesions/ Ulcerations Neck: Supple, No JVD, Negative Carotid Bruits. No neck rigidity. Mild tenderness in the left sternomastoid muscle probably positional. Lungs: Air entry equal in bilateral lung bases. No crepitation/rhonchi Cardiovascular: Regular rate, Regular Rhythm, Normal S1, Normal S2, No murmurs Abdomen: Bowel Sounds Present, Soft, Non Tender, Non-Distended : No renal angle tenderness. No suprapubic tenderness. Extremities: No edema, Capillary Refill Less than 3 Seconds Skin: No rashes, No breakdown Musculoskeletal/back: SLR positive at 30 degrees on both lower extremities. Neurological: Cranial nerves II-XII grossly intact, DTR 2+/4, neuro grossly intact Psych/Mental Status: Flat affect Weight / BMI Weight Weight: 163 lb 9.328 oz Body Mass Index (BMI) 20.9 ABG / Lab / Microbiology Data Result Diagrams: 04/03/21 03:30 04/03/21 03:30 Laboratory: Laboratory Results - last 24 hr 04/02/21 21:08: WBC 5.0, RBC 4.58 L, Hgb 15.0, Hct 43.6, MCV 95.2 H, MCH 32.8 H, MCHC 34.4, RDW Std Deviation 44.2 H, RDW Coeff of Tony 12.5, Plt Count 258, MPV 9.1, Immature Gran % (Auto) 0.400, Neut % (Auto) 74.6 H, Lymph % (Auto) 14.3 L, [place] % (Auto) 9.7, Eos % (Auto) 0.4, Baso % (Auto) 0.6, Absolute Neuts (auto) 3.7, Absolute Lymphs (auto) 0.71 L, Nucleated RBC % 0 04/02/21 21:08: PT 13.2, INR 1.1, APTT 31.4 04/02/21 21:08: Sodium 130 L, Potassium 3.6, Chloride 96 L, Carbon Dioxide 26.0, Anion Gap 8, BUN 25 H, Creatinine 2.15 H, Estim Creat Clear Calc 36.78, Est GFR (MDRD) Af Amer 40 L, Est GFR (MDRD) Non-Af 33 L, BUN/Creatinine Ratio 11.6, Glucose 127 H, Calcium 8.9, Total Bilirubin 0.50, AST 37, ALT 27, Alkaline Phosphatase 121 H, Troponin I High Sens 17, Total Protein 7.7, Albumin 3.6, Globulin 4.1, Albumin/Globulin Ratio 0.9 04/02/21 21:08: Lactic Acid 2.3 H* 04/02/21 23:15: Urine Color Yellow, Urine Clarity Clear, Urine pH 5.0, Ur Speci fic Aldie 1.020, Urine Protein 30 H, Urine Glucose (UA) Normal, Urine Ketones 5 H, Urine Occult Blood 50 H, Urine Nitrite Negative, Urine Bilirubin Negative, Urine Urobilinogen Normal, Ur Leukocyte Esterase Negative, Urine RBC 0 SEEN, Urine WBC 5-10 SEEN, Ur Squamous Epith Cells 0 SEEN, Urine Bacteria 3+, Hyaline Casts 50-100 SEEN, Urine Mucus 2+ 04/02/21 23:15: Troponin I High Sens 14 04/03/21 02:30: Lactic Acid 0.5 04/03/21 03:15: Troponin I High Sens 11 04/03/21 03:30: WBC 4.8, RBC 4.27 L, Hgb 13.7, Hct 39.9 L, MCV 93.4, MCH 32.1 H, MCHC 34.3, RDW Std Deviation 43.0, RDW Coeff of Tony 12.5, Plt Count 236, MPV 9.4, Immature Gran % (Auto) 0.400, Neut % (Auto) 80.1 H, Lymph % (Auto) 10.4 L, [place] % (Auto) 8.7, Eos % (Auto) 0.0, Baso % (Auto) 0.4, Absolute Neuts (auto) 3.9, Absolute Lymphs (auto) 0.50 L, Nucleated RBC % 0 04/03/21 03:30: Sodium 132 L, Potassium 3.9, Chloride 103, Carbon Dioxide 24.0, Anion Gap 5, BUN 24 H, Creatinine 1.43 H, Estim Creat Clear Calc 56.21, Est GFR (MDRD) Af Amer 64, Est GFR (MDRD) Non-Af 53 L, BUN/Creatinine Ratio 16.8, Glucose 107 H, Calcium 7.9 L, Total Bilirubin 0.40, AST 33, ALT 23, Alkaline Phosphatase 105, Total Protein 6.6, Albumin 2.9 L, Globulin 3.7, Albumin/Globulin Ratio 0.8 L, Triglycerides 55, Cholesterol 120, LDL Cholesterol 62, VLDL Cholesterol 11, HDL Cholesterol 47 Microbiology: Microbiology 04/03/21 02:00 Nasal Secretion SARS-CoV-2 Antigen (Rapid) - Final Radiography Diagnostic Testing: Radiology Impression Brain CT 04/02/21 21:45 IMPRESSION: No acute intracranial abnormality. Dental abscesses of the left maxillary molars. Electronically Signed: Vargas Wang MD at 22:09 EST Tel , Service support , Chest X-Ray 04/02/21 21:50 IMPRESSION: No acute radiographic abnormalities. Electronically Signed: Vargas Wang MD at 22:09 EST Tel , Service support , Echocardiogram 04/03/21 01:41 Interpretation Summary Left ventricular systolic function is normal. The estimated ejection fraction is 65 %. Trivial mitral valve insufficiency. Trivial tricuspid valve insufficiency. Mild focal aortic valve calcification. Unable to estimate RV systolic pressure due to insufficient tricuspid regurgitant envelope. No evidence for diastolic dysfunction. Positive agitated saline contrast study for a right to left interatrial shunt compatible with a small PFO versus ASD. Ordering Physician: Jonathon Michael Referring Physician: Gavin Powell Performed By: Noah Rangel RCS Meaningful Use Info Meaningful Use Diagnoses (Choose all that apply): None applicable Discharge Plan Admission Admit Date/Time: 04/03/21 00:43 Attending Provider: Jluis Bliss Primary Care Provider: Cha Powell Consulting Providers: José Miguel Desouza Discharge Orders/Prescriptions Prescriptions: No Action NK RF: 0 Referrals / Follow Up: Cha Powell, PA [Primary Care Provider] - Disposition Discharge Orders: Discharge Patient (Routine); Ordered 04/03/21 Ordered By: Dr. Jluis Bliss Charges/Coding Visit Charges Inpatient E&M: 57124 Disch Hosp
== END 2021-04-03 13:47 | disposition left against medical advice (07) | DRG 720 ==
LOC: ED 04-03 00:37 → PCU 04-03 02:20
PROVIDERS: Emergency Provider Emergency Medicine; PCP Physician Assistant; Visit Provider Internal Medicine
DX: A41.9 Sepsis, unspecified organism (principal); N17.9 Acute kidney failure, unspecified; R65.20 Severe sepsis without septic shock; K04.7 Periapical abscess without sinus; F17.210 Nicotine dependence, cigarettes, uncomplicated
CPT/HCPCS: 36415; 70450; 71045; 80053; 80061; 81001; 83605; 84484; 85025; 85610; 85730; 87040; 87086; 87426; 87449; 92610; 93005; 93306; 94762; 97161; 97166; 99285; 99406; J7030; J7040; J7050; A4216; J0696

== ENCOUNTER 2023-03-04 12:25 | Emergency (ER) | payer MEDICAID, SELFPAY ==
[2023-03-04 12:26] VITALS: BP 131/87; PULSE 97; RESP 16; TEMP 36.4; O2SAT 95; BMI 22.8
--- NOTE | 2023-03-04 12:45 | RAD_ITS ---
STUDY: X-RAY - LEFT ANKLE REASON FOR EXAM: Male, 62 years old. trauma TECHNIQUE: 3 view(s) of the ankle. COMPARISON: None. FINDINGS: Normal visualized distal tibia and fibula. No visualized acute fractures. Moderate-sized corticated ossicle at the undersurface of the lateral malleolus is either due to old trauma or developmental unfused apophysis. Mild soft tissue swelling is present over lateral malleolus compatible with a sprain injury but I see no acute fracture. Normal medial and lateral malleoli. Normal tibiotalar articulation and ankle mortise. Normal visualized talus and calcaneus. The visualized subtalar, talonavicular, calcaneocuboid and tarsal articulations are normal. RAD/Ankle min 3 Views IMPRESSION: 1. Moderate-sized corticated ossicle at the undersurface of the lateral malleolus is either due to old trauma or developmental unfused apophysis. Mild soft tissue swelling is present over lateral malleolus compatible with a sprain injury but I see no acute fracture. Electronically Signed: Valentin Cobos MD at 13:50 EDT ,
--- NOTE | 2023-03-04 13:28 | EDS_ITS ---
<Statement entered by Virgilio Valnetino MD - 03/04/23 15:20> I have personally performed a face to face assessment of the patient and have reviewed the AGNES Note. HPI History of Present Illness Chief Complaint: Lower Extremity Injury Narrative Narrative: Patient is a 62-year-old male with history of tobacco use, hyperlipidemia, who presents to the emergency department for pain to the left ankle. Patient states that 2 days ago, he rolled his ankle, tripping over his toolbox. He states he did scrape the toolbox to his left ankle. He notes the swelling, worsening pain on ambulation, and is here for evaluation. Denies any foot pain. Denies any other injury. [facility] Medical History Weakness of left upper extremity Home Medications cephalexin 500 mg capsule 500 mg PO Q6 #28 CAPSULES 03/04/23 [Rx Last Taken Unknown] Allergy/AdvReac Type Severity Reaction Status Date / Time No Known Allergies Allergy Verified 03/04/23 12:26 Surgical History unable to obtain Social History household members: none housing: other current occupational status: employed Smoking Status: Current every day smoker tobacco type: cigarettes ROS ROS ED ROS Narrative Constitutional: Negative for fever, chills, weight loss, weakness Eyes: Negative for vision loss, vision change, double vision ENT: Negative for any sore throat, ear pain, congestion Cardiovascular: Negative for any chest pain, tightness, palpitations Respiratory: Negative for any cough, sputum production, hemoptysis, dyspnea, dyspnea on exertion, orthopnea Gastrointestinal: Negative for any abdominal pain, nausea, vomiting, diarrhea, constipation, blood in stool, blood in vomit : Negative for any urinary frequency, dysuria, retention, blood in urine Muscle skeletal: Negative for any muscle joint pain, stiffness, myalgias, arthralgias, neck pain, back pain. Positive for pain to the left ankle soft tissue swelling Neurological: Negative for any headache, syncope, numbness or tingling, dizziness Skin: Negative for any rashes, lumps, itching, abrasions, lacerations Psychiatric: Negative for any depression, anxiety, stress, suicidal ideation, homicidal ideation Hematologic: Negative for any easy bruising, excessive bruising, easy bleeding Allergies: Negative for any eczema, hives, rash EXAM Physical Exam Narrative Exam Narrative: Vital signs reviewed. Extremities: Patient does have edema to the lateral malleolus, there is some erythema, edema to this area. I am concerned for cellulitis secondary to him striking the toe box. There is no evidence of any open fracture. Patient is +2 pedal pulses. Flexing extending against resistance does cause some discomfort. Neuro: Cranial nerves II through XII intact, no focal neurological deficits. Skin: Clean dry and intact with no rash, purpura, petechiae, vesicles or pustules. Backs/flank: No CVA tenderness, no midline spinal tenderness, no deformity. Psych: Normal mood and affect. No SI, HI or acute psychosis. Const Vital Signs: 03/04/23 12:26 Temperature 97.6 F L Temperature Source Temporal Pulse Rate 97 Respiratory Rate 16 Blood Pressure 131/87 H Blood Pressure Mean 101 Pulse Ox 95 Oxygen Delivery Method Room Air MDM MDM Radiography Diagnostic Testing: Clinical Impression(s) from Imaging Studies Ankle X-Ray 03/04/23 12:45 IMPRESSION: 1. Moderate-sized corticated ossicle at the undersurface of the lateral malleolus is either due to old trauma or developmental unfused apophysis. Mild soft tissue swelling is present over lateral malleolus compatible with a sprain injury but I see no acute fracture. Electronically Signed: Valentin Cobos MD at 13:50 EDT Reading Location ID and State: [facility] / [place] , Service support , Treatment and Re-Evaluation :: Patient appears to be in no distress, vital signs are stable. Presenting to the emergency department with pain to the left ankle after an injury. Patient examination does show some edema however there is some erythema around the area, this could be secondary to striking the skin with a toolbox. I am concerned for some cellulitis. There is no drainable abscess. There is no open fracture or sign of tissue injury. Patient will receive a 3 view x-ray, all radiologic examinations were read, reviewed by the emergency department attending. From these reads, a plan of care will be put in place. Patient x-ray of the left ankle shows a moderate-sized corticated ossicle of the undersurface of the lateral malleolus is either due to old trauma or developmental unfused apophysis. Mild soft tissue swelling is present over lateral malleolus compatible with a sprain injury. At this time, there is no acute fracture. However I am concerned for cellulitis. This is likely secondary to the swelling as well as the pain with walking. Patient be started on Keflex 4 times a day for 7 days. He was given strict return precaution. Patient is happy the plan of care and is stable for discharge. Discharge Plan Triage Chief Complaint: Lower Extremity Injury ED Midlevel Provider: Virgilio Marie ED Provider: Virgilio Valentino Dx/Rx/DC Orders Clinical Impression: Ankle sprain, Cellulitis Instructions: ED Cellulitis, ED Ankle Sprain (Adult) Prescriptions: New cephalexin 500 mg capsule 500 mg PO Q6 Qty: 28 0RF Primary Care Provider: Cha Powell Referrals: Cha Powell, PA [Primary Care Provider] - Activity Restrictions/Additional Instructions: I am concerned for cellulitis to your left ankle. You need to take the Keflex 4 times a day for a week. Return for worsening redness, swelling, streaking up your leg. You should have improvement the next 48 hours. Disposition Disposition: Home, Self Care
[2023-03-04] MEDS: Cephalexin 250 MG Capsule 500 MG PO (14:09)
== END 2023-03-04 14:14 | disposition home or self-care (01) ==
PROVIDERS: Emergency Provider Emergency Medicine; PCP Physician Assistant; Visit Provider Emergency Medicine
DX: S93.402A Sprain of unspecified ligament of left ankle, initial encounter (principal); E78.5 Hyperlipidemia, unspecified; Z87.891 Personal history of nicotine dependence; W22.8XXA Striking against or struck by other objects, initial encounter; L03.116 Cellulitis of left lower limb
CPT/HCPCS: 73610; 99282

== ENCOUNTER 2023-06-06 16:45 | Emergency (ER) | payer MEDICARE, MEDICAID, SELFPAY ==
[2023-06-06 16:51] VITALS: BP 153/109; PULSE 86; RESP 16; TEMP 36.7; O2SAT 95; BMI 18.6
[2023-06-06 16:54] VITALS: BP 153/109; PULSE 86; RESP 16; TEMP 36.7; O2SAT 95
--- OUTSIDE RECORDS SUMMARY | 2023-06-06 17:34 | XMS RPT_ITS | CCD ---
Author Name Unknown Address [address] [place] [address] Organization [facility] Care Team Providers Care Staffing Executive Name Role Phone Cha Powell PA-C Primary Care Provider KALEB POWELL Primary Care Unavailable KALEB POWELL Primary Care Unavailable NATHALIE NGUYEN Attending Unavailable KALEB POWELL Primary Care Unavailable KALEB POWELL Attending Unavailable Allergies Allergy Classification Reported Allergen(s) Allergy Type Date of Onset Reaction(s) Facility (11 sources) Iodine; Translations: [IODINE] Drug Allergy 09-07-2016 [facility] Medications Current Medications Medication Drug Class(es) Dates Sig (Normalized) Sig (Original) clotrimazole 10 mg/ml topical cream (3 sources) Azole Antifungal Start: 03-15-2022 End: 03-29-2022 clotrimazole (LOTRIMIN, CLOTRIM) 1 % cream Indications: Tinea pedis of right foot Apply to affected area twice daily for 14 days. Between toes and in groin when irritated 30 g 1 03/15/2022 03/29/2022 Active Completed/Discontinued Medications Medication Drug Class(es) Dates Sig (Normalized) Sig (Original) [id number] 200 actuat albuterol 0.09 mg/actuat metered dose inhaler (1 source) beta2-Adrenergic Agonist Start: 05-26-2023 take 2 puff(s) by inhalation every six hours as needed albuterol HFA (PROAIR HFA) 90 mcg/actuation inhaler Inhale 2 Puffs as instructed every 6 hours as needed. 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] Onset: 11-03-2012 11-03-2012 Chronic Disorders of lipid metabolism (10 sources) Dyslipidemia; Translations: [Hyperlipidemia, unspecified] Onset: 2011 09-15-2011 Chronic Essential hypertension (12 sources) Hypertensive disorder; Translations: [Essential (primary) hypertension] Onset: 2011 09-15-2011 Chronic Mycoses (1 source) Tinea pedis; Translations: [Tinea pedis] Episodic Other lower respiratory disease (1 source) Chronic cough; Translations: [Chronic cough] Episodic Other nutritional; endocrine; and metabolic disorders (11 sources) Cholesterol level - finding; Translations: [Lipoprotein deficiency] Onset: 10-10-2012 10-10-2012 Chronic Other nutritional; endocrine; and metabolic disorders (1 source) Lipoprotein deficiency; 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)] Onset: 10-10-2012 Chronic Other nutritional; endocrine; and metabolic disorders (2 sources) Weight loss; Translations: [Abnormal weight loss] Episodic Other upper respiratory disease (1 source) Chronic hoarseness; Translations: [Dysphonia] Episodic Other upper respiratory infections (1 source) Chronic sinusitis; Translations: [Chronic sinusitis, unspecified] 05-26-2023 Chronic Residual codes; unclassified (1 source) At risk of coronary heart disease ; Translations: [Other specified personal risk factors, not elsewhere classified] Episodic Secondary malignancies (10 sources) Metastasis to head and neck lymph node; Translations: [Secondary and unspecified malignant neoplasm of lymph nodes of head, face and neck] Onset: 03-31-2013 03-31-2013 Chronic Spondylosis; intervertebral disc disorders; other back problems (10 sources) Lumbar facet joint pain; Translations: [Spondylosis without myelopathy or radiculopathy, lumbar region] Onset: 08-30-2016 08-30-2016 Chronic Thyroid disorders (8 sources) Subclinical hypothyroidism; Translations: [Other specified hypothyroidism] Onset: 03-25-2022 03-25-2022 Chronic Past or Other Problems Problem Classification Problem Date Documented Da te Episodic/Chronic Administrative/social admission (10 sources) Patient encounter status; Translations: [Persons encountering health services in other specified circumstances] Onset: 04-08-2021 04-08-2021 Episodic Nutritional deficiencies (9 sources) Nutritional deficiency state; Translations: [Nutritional deficiency, unspecified] Onset: 03-25-2022 Episodic Other nutritional; endocrine; and metabolic disorders (1 source) Abnormal weight loss; Translations: [Weight loss] Onset: 07-03-2022 Episodic Other skin disorders (13 sources) Mass of neck; Translations: [Localized swelling, mass and lump, neck] Onset: 10-03-2012 10-03-2012 Episodic Other skin disorders (1 source) Localized swelling, mass and lump, neck; Translations: [Neck mass] Onset: 10-03-2012 Episodic Other upper respiratory disease (8 sources) Disorder of the larynx; Translations: [Other diseases of larynx] Onset: 10-03-2012 10-03-2012 Episodic Other upper respiratory disease (1 source) Other diseases of larynx; Translations: [Laryngeal mass] Onset: 10-03-2012 Episodic Other upper respiratory disease (1 source) Dysphonia; Translations: [Hoarseness, chronic] Onset: 07-03-2022 Episodic Residual codes; unclassified (12 sources) Tobacco user; Translations: [Tobacco use] Onset: 10-10-2012 10-10-2012 Episodic Spondylosis; intervertebral disc disorders; other back problems (20 sources) Low back pain; Translations: [Lumbago] Onset: 03-28-2009 09-15-2011 Episodic Results Test Name Value Interpretation Reference Range Facil ity Vital Signs Date Time Vital Sign Value Performing Clinician Kevin schmitz 05-26-2023 09:51-0500 Body temperature 97.39 [degF] Nathalie Nguyen PA-C Work Phone: [facility] 05-26-2023 09:51-0500 Body weight 68.95 kg Nathalie ANGUIANO-Ricky Work Phone: [facility] 05-26-2023 09:51-0500 Diastolic blood pressure 78 mm[Hg] Nathalie ANGUIANO-Ricky Work Phone: [facility] 05-26-2023 09:51-0500 Heart rate 61 /min Nathalie Nguyen PA-C Work Phone: [facility] 05-26-2023 09:51-0500 Respiratory rate 20 /min Nathalie Athy PA-C Work Phone: [facility] 05-26-2023 09:51-0500 SaO2% (BldA) [Mass fraction] 96 % Nathalie Athy PA-C Work Phone: [facility] 05-26-2023 09:51-0500 Systolic blood pressure 128 mm[Hg] Nathalie Athy PA-C Work Phone: [facility] 03-15-2022 16:41-0400 Body weight 73.03 kg NA Powell PA-C Work Phone: [facility] 03-15-2022 16:41-0400 Diastolic blood pressure 92 mm[Hg] NA Powell PA-C Work Phone: [facility] 03-15-2022 16:41-0400 Heart rate 68 /min NA Powell PA-C Work Phone: [facility] 03-15-2022 16:41-0400 Respiratory rate 24 /min NA Powell PA-C Work Phone: [facility] 03-15-2022 16:41-0400 SaO2% (BldA) [Mass fraction] 95 % NA Powell PA-C Work Phone: [facility] 03-15-2022 16:41-0400 Systolic blood pressure 148 mm[Hg] NA Powell PA-C Work Phone: [facility] Encounters Encounter Date Encounter Type Care Provider Facility Start: 06-03-2023 End: 06-03-2023 ambulatory KALEB POWELL Facility:[facility] Start: 05-26-2023 End: 05-26-2023 ambulatory KALEB POWELL Facility:[facility] Start: 05-26-2023 End: 05-26-2023 Patient encounter procedure Nathalie Ross Athy PA-C Work Phone: [facility] Procedures Date Procedure Procedure Detail Performing Clinician Start: 03-20-2022 Lipid 1996 panel - S checo or Plasma NA Powell PA-C Work Phone: Start: 07-20-2020 Adult depression scr eening assessment RALF Powell PA-C Work Phone: Start: 08-26-2011 Colonoscopy RALF Powell PA-C Work Phone: Plan of Treatment Date Care Activity Detail Author Start: 10-07-2028 Urine microalbumin profile DTaP,Tdap,Td Vaccine (2 - Td or Tdap) [facility] Start: 03-20-2027 Lipid 1996 panel - S checo or Plasma Lipid Screening [facility] Start: 03-20-2027 Lipid panel Lipid Screening [facility] Start: 03-20-2027 LIPID SCREEN LIPID SCREEN [facility] Start: 03-20-2025 DIABETES SCREEN DI[facility]ET[facility] SCREEN [facility] Start: 03-20-2025 Diabetes Screening Diabetes Screenin g [facility] Start: 05-26-2024 BP Controlled (<130/80) BP Con trolled (<130/80) [facility] Start: 07-03-2023 ANNUAL PCP TEAM MANAGER ARCHITECTURE FARHAT DISEASE VISIT ANNUAL PCP TEAM CHRONIC DISEASE VISIT [facility] Start: 2023 Advance Directive Discussion Advance Directive Discussion [facility] Start: 03-15-2023 ANNUAL PCP TEAM MANAGER ARCHITECTURE FARHAT DISEASE VISIT ANNUAL PCP TEAM CHRONIC DISEASE VISIT [facility] Start: 01-25-[address] [facility] Start: 06-19-2022 LIPID SCREEN LIPID SCREEN [facility] Start: 05-27-2022 DEPRESSION ASSESSMENT DEPRESSION ASS ESSMENT [facility] Start: 03-15-2022 End: 05-15-2022 Ascorbate [Mass/volume] in Serum or Plasma VITAMIN C Lab Routine Weight loss Alcohol abuse Poor nutrition Expected: 03/15/2022, Expires: 05/15/2022 [facility] Work Phone: Immunizations Immunization Date Immunization Notes Care Provider Keyon kirk 06-19-2017 influenza virus vacc ine, unspecified formulation RALF Powell PA-C Work Phone: [facility] 03-19-2013 influenza virus vacc ine, unspecified formulation RALF Powell PA-C Work Phone: [facility] 03-19-2013 pneumococcal polysaccharide vaccine, 23 valent RALF Powell PA-C Work Phone: [facility] Payers Date Payer Category Payer Medicare MEDICARE MEDICAR E A AND B [id number] 2023-Present [phone] [place] [address] Medicare [id number] 2023 Medicare [id number] 2022 Medicaid [id number] 2022 Medicaid [id number] 2009 Medicaid [employer] [id number] 2009-Present [phone] [place] [address] Medicaid [id number] 2009 Medicaid [id number] Social History Date Type Detail Facility Start: 06-22-2013 End: 03-14-2022 Tobacco smoking status NHIS Smokes tobacco daily [facility] End: 04-06-2013 History of tobacco use Cigarette Smoker [facility] Start: 06-22-2013 End: 06-09-2022 Cigarettes smoked current (pack per day) - Reported 1.5 [facility] Work Phone: Start: 06-22-2013 End: 03-14-2022 Tobacco use and exposure Former smokeless tobacco user [facility] End: 05-27-1982 History of tobacco use Chews Tobacco [facility] Start: 04-08-2021 End: 05-26-2023 Alcohol intake Current drinker of alcohol (finding) [facility] Start: 07-20-2020 History SDOH Alcohol Frequency 4 [facility] Start: 07-20-2020 End: 07-29-2020 History SDOH Alcohol Std Drinks 1 [facility] Start: 07-20-2020 History SDOH Alcohol Binge 2 [facility] Start: 11-13-2012 History SDOH Alcohol Comment occassionally 1-2 times per month [facility] Start: 07-20-2020 History SDOH Social Connections Phone 5 [facility] Start: 07-20-2020 History SDOH Social Connections Scientology 98 [facility] Start: 07-20-2020 End: 07-29-2020 History SDOH Physical Activity MPS 3 [facility] Start: 07-20-2020 Education 21 [facility] Start: 05-11-2013 End: 03-14-2022 Tobacco Comment Pt will occ have 1 or 2 puffs, using Nicotine patch. [facility] Start: 1960 Sex Assigned At Not on file [facility] Start: 07-20-2020 End: 06-09-2022 Social connection and isolation panel [facility] Work Phone: How often do you att end holiness or restoration services? Patient refused [facility] Work Phone: Do you belong to any clubs or organizations such as holiness groups, unions, fraternal or athletic groups, or school groups? No [facility] Work Phone: Are you now , , , , never or living with a partner? Refused [facility] Work Phone: How often to you hav e a drink containing alcohol? 2-3 time sa week [facility] Work Phone: How many standard dr inks containing alcohol do you have on a typical day? 1 or 2 [facility] Work Phone: How often do you hav e 6 or more drinks on 1 occasion? Less than monthly [facility] Work Phone: How hard is it for y ou to pay for the very basics like food, housing, medical care, and heating Hard [facility] Work Phone: Do you feel stress - tense, restless, nervous, or anxious, or unable to sleep at night because your mind is troubled all the time - these days [OSQ] Only a little [facility] Work Phone: (I/We) worried whemary er (my/our) food would run out before (I/we) got money to buy more. Sometimes true [facility] Work Phone: The food that (I/we) bought just didn't last, and (I/we) didn't have money to get more. Often true [facility] Work Phone: At any time in the p ast 12 months, were you homeless or living in assisted [including now]? Yes [facility] Clinical Notes 05-11-2013 to 06-03-2023 Nathalie Nguyen PA-C - 05/26/2023 10:12 AM ESTTelephone Encounter - Erika Montague Ma - 07/05/2022 8:25 AM ESTTelephone Encounter - CANDY Erickson - 04/24/2022 8:33 AM ESTPatient Instructions Note Date & Type Note Facility 06-03-2023 Note HNO ID: [id number] Author: PHANI MIDDLETON APRN.BREAK UP WORKER Service: ? Author Type: Nurse Practitioner Type: Progress Notes Filed: 06/03/2023 16:07 Note Text: Subjective HPI HPI Caitie Jin is a 63 year old male who presents today for CC of cough, sob, weakness. This started 8 days ago. Has tried otc medication for relief. Symptoms are worsened by nothing. Risk factors smoker. .Patient presents with: Cough: Chest congestion x8 days, 05/26 for same PAST MEDICAL HISTORY Diagnosis Date Dyslipidemia Encounter for support and coordination of transition of care 04/08/2021 Hospital discharge summary Admission date 04/02/2021 Discharge date 04/03/2021 Prehospital work-up: 04/02/2021 [facility] with altered mental status and confusion, approximately 2 hours prior to arrival, feeling weak all over, generalized numbness and tingling. Patient denied nausea, vomiting, chest pain, shortness of breath. Vital signs 90 7.6F-74-15-79/57-93% RA. 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 benzonatate (TESSALON PERLES) 100 mg capsule Take 2 capsules by mouth three times a day as needed. naproxen sodium (ANAPROX) 220 mg tablet Take 220 mg by mouth twice daily with meals. predniSONE (DELTASONE) 50 mg 50mg by mouth at 13, 7, and 1 hour prior to contrast administration. lisinopril (ZESTRIL, PRINIVIL) 10 mg tablet Take 1 tablet by mouth once daily. (Patient not taking: Reported on 12/23/2020 ) FAMILY HISTORY Problem Relation Age of Onset Cancer Mother uncertain-possibly pancreatic, patient states she may have had her pancreas removed. Psychiatry Mother bipolar Diabetes Father Heart Father Ischemic Heart Disease Father Social History Tobacco Use Smoking status: Every Day Packs/day: 1.50 Years: 30.00 Additional pack years: 0.00 Total pack years: 45.00 Types: Cigarettes Last attempt to quit: 04/06/2013 Years since quittin.1 Smokeless tobacco: Former Types: Chew Quit date: 05/27/1982 Tobacco comments: Pt will occ have 1 or 2 puffs, using Nicotine patch. Substance Use Topics Alcohol use: Yes Comment: occassionally 1-2 times per month Drug use: No Comment: past hx marijuana ROS Objective Blood pressure 90/66, pulse 64, temperature 36.6 ?C (97.9 ?F), weight 66 kg (145 lb 6.4 oz), SpO2 (!) 76%. Physical Exam Constitutional: General: He is not in acute distress. Appearance: He is not toxic-appearing or diaphoretic. HENT: Head: Normocephalic and atraumatic. Cardiovascular: Rate and Rhythm: Normal rate and regular rhythm. Heart sounds: Normal heart sounds, S1 normal and S2 normal. Pulmonary: Effort: Tachypnea and accessory muscle usage (slight) present. Breath sounds: Normal breath sounds. Neurological: Mental Status: He is alert and oriented to person, place, and time. Gait: Gait is intact. ASSESSMENT/PLAN: 1. SOB (shortness of breath) - ICD9: 786.05, ICD10: R06.02 Hands very cold I do not suspect 02 Sat accurate, patient showing slight sob. I advise ER, patient adamantly declines squad. Patient reports will go to ER once he takes care of his animals. I advised ER JO. Phani Middleton APRN.MICHE[facility] 05-26-2023 Note HNO ID: [id number] Author: Nathalie Nguyen PA-C Service: ? Author Type: Physician Geographic Information System Surveyor Type: Progress Notes Filed: 05/26/2023 10:15 AM Note Text: This note was created using [employer]. Subjective Caitie Jin is a 63 year old male. HPI Presents with sore throat, cough, fatigue for 3 weeks. He states he has been drinking fluids, has not been eating very much. He states the cough does keep him up at night. Has not had a fever. He did do 2 home COVID test which were negative. He is a smoker. Denies COPD. No chest pain or shortness of breath. He has tried [id number] Mucinex without relief. Review of Systems Constitutional: Positive for fatigue. Negative for fever. HENT: Positive for congestion and sore throat. Respiratory: Positive for cough. Negative for shortness of breath. Cardiovascular: Negative. Gastrointestinal: Negative. Genitourinary: Negative. Musculoskeletal: Negative. All other systems reviewed and are negative. PAST MEDICAL HISTORY Diagnosis Date Dyslipidemia Encounter for support and coordination of transition of care 04/08/2021 Hospital discharge summary Admission date 04/02/2021 Discharge date 04/03/2021 Prehospital work-up: 04/02/2021 presented to [facility] with altered mental status and confusion, approximately 2 hours prior to arrival, feeling weak all over, generalized numbness and tingling. Patient denied nausea, vomiting, chest pain, shortness of breath. Vital signs 90 7.6F-74-15-79/57-93% RA. 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 doxycycline (VIBRA-TABS) 100 mg tablet Take 1 tablet by mouth two times a day for 7 days. 14 tablet 0 albuterol HFA (PROAIR HFA) 90 mcg/actuation inhaler Inhale 2 Puffs as instructed every 6 hours as needed. 1 Each 0 benzonatate (TESSALON PERLES) 100 mg capsule Take 2 capsules by mouth three times a day as needed. 30 capsule 0 predniSONE (DELTASONE) 50 mg 50mg by mouth at 13, 7, and 1 hour prior to contrast administration. 3 tablet 0 lisinopril (ZESTRIL, PRINIVIL) 10 mg tablet Take 1 tablet by mouth once daily. (Patient not taking: Reported on 12/23/2020 ) 30 tablet 2 No current facility-administered medications for this visit. PAST SURGICAL HISTORY Procedure Laterality Date EGD PERCUTANEOUS PLACEMENT GASTROSTOMY TUBE 03/31/13 PEG tube PAST SURGICAL HISTORY OF 2004 cyst removed left cheek THROAT SURGERY PROCEDURE UNLISTED 11/2012 biopsy throat cancer TONSILLECTOMY HX as a child FAMILY HISTORY Problem Relation Age of Onset Cancer Mother uncertain-possibly pancreatic, patient states she may have had her pancreas removed. Psychiatry Mother bipolar Diabetes Father Heart Father Ischemic Heart Disease Father Social History Tobacco Use Smoking status: Every Day Packs/day: 1.50 Years: 30.00 Additional pack years: 0.00 Total pack years: 45.00 Types: Cigarettes Last attempt to quit: 04/06/2013 Years since quittin.1 Smokeless tobacco: Former Types: Chew Quit date: 05/27/1982 Tobacco comments: Pt will occ have 1 or 2 puffs, using Nicotine patch. Substance Use Topics Alcohol use: Yes Comment: occassionally 1-2 times per month Drug use: No Comment: past hx marijuana Objective BP 128/78 Pulse 61 Temp 36.3 ?C (97.4 ?F) Resp 20 Wt 68.9 kg (152 lb) SpO2 96% Physical Exam Vitals reviewed. Constitutional: Appearance: Normal appearance. HENT: Head: Normocephalic and atraumatic. Right Ear: Tympanic membrane, ear canal and external ear normal. Left Ear: Tympanic membrane, ear canal and external ear normal. Nose: Congestion present. Mouth/Throat: Mouth: Mucous membranes are moist. Pharynx: Oropharynx is clear. Cardiovascular: Rate and Rhythm: Normal rate and regular rhythm. Heart sounds: Normal heart sounds. Pulmonary: Effort: Pulmonary effort is normal. No respiratory distress. Breath sounds: Normal breath sounds. No wheezing or rhonchi. Musculoskeletal: Cervical back: Neck supple. Skin: General: Skin is warm and dry. Neurological: Mental Status: He is alert. Assessment and Plan ASSESSMENT/PLAN: 1. Sinobronchitis - ICD9: 473.9, 490, ICD10: J32.9, J40 - Will begin treatment with Doxycycline - Follow up in 2-3 days if symptoms persist or worsen. -Not available today on the weekend. Will cover with doxycycline but discussed if not improving the next couple of days to be seen again and reevaluated. Nathalie Nguyen PA-C [facility] 05-26-2023 History of Presen t illness Narrative This note was created using [employer]. Subjective Caitie Jin is a 63 year old male. HPI Presents with sore throat, cough, fatigue for 3 weeks. He states he has been drinking fluids, has not been eating very much. He states the cough does keep him up at night. Has not had a fever. He did do 2 home COVID test which were negative. He is a smoker. Denies COPD. No chest pain or shortness of breath. He has tried [id number] Mucinex without relief. Review of Systems Constitutional: Positive for fatigue. Negative for fever. HENT: Positive for congestion and sore throat. Respiratory: Positive for cough. Negative for shortness of breath. Cardiovascular: Negative. Gastrointestinal: Negative. Genitourinary: Negative. Musculoskeletal: Negative. All other systems reviewed and are negative. PAST MEDICAL HISTORY Diagnosis Date Dyslipidemia Encounter for support and coordination of transition of care 04/08/2021 Hospital discharge summary Admission date 04/02/2021 Discharge date 04/03/2021 Prehospital work-up: 04/02/2021 presented to [facility] with altered mental status and confusion, approximately 2 hours prior to arrival, feeling weak all over, generalized numbness and tingling. Patient denied nausea, vomiting, chest pain, shortness of breath. Vital signs 90 7.6F-74-15-79/57-93% RA. 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 doxycycline (VIBRA-TABS) 100 mg tablet Take 1 tablet by mouth two times a day for 7 days. 14 tablet 0 albuterol HFA (PROAIR HFA) 90 mcg/actuation inhaler Inhale 2 Puffs as instructed every 6 hours as needed. 1 Each 0 benzonatate (TESSALON PERLES) 100 mg capsule Take 2 capsules by mouth three times a day as needed. 30 capsule 0 predniSONE (DELTASONE) 50 mg 50mg by mouth at 13, 7, and 1 hour prior to contrast administration. 3 tablet 0 lisinopril (ZESTRIL, PRINIVIL) 10 mg tablet Take 1 tablet by mouth once daily. (Patient not taking: Reported on 12/23/2020 ) 30 tablet 2 No current facility-administered medications for this visit. PAST SURGICAL HISTORY Procedure Laterality Date EGD PERCUTANEOUS PLACEMENT GASTROSTOMY TUBE 03/31/13 PEG tube PAST SURGICAL HISTORY OF 2004 cyst removed left cheek THROAT SURGERY PROCEDURE UNLISTED 11/2012 biopsy throat cancer TONSILLECTOMY HX as a child FAMILY HISTORY Problem Relation Age of Onset Cancer Mother uncertain-possibly pancreatic, patient states she may have had her pancreas removed. Psychiatry Mother bipolar Diabetes Father Heart Father Ischemic Heart Disease Father Social History Tobacco Use Smoking status: Every Day Packs/day: 1.50 Years: 30.00 Additional pack years: 0.00 Total pack years: 45.00 Types: Cigarettes Last attempt to quit: 04/06/2013 Years since quittin.1 Smokeless tobacco: Former Types: Chew Quit date: 05/27/1982 Tobacco comments: Pt will occ have 1 or 2 puffs, using Nicotine patch. Substance Use Topics Alcohol use: Yes Comment: occassionally 1-2 times per month Drug use: No Comment: past hx marijuana Objective BP 128/78 Pulse 61 Temp 36.3 C (97.4 F) Resp 20 Wt 68.9 kg (152 lb) SpO2 96% Physical Exam Vitals reviewed. Constitutional: Appearance: Normal appearance. HENT: Head: Normocephalic and atraumatic. Right Ear: Tympanic membrane, ear canal and external ear normal. Left Ear: Tympanic membrane, ear canal and external ear normal. Nose: Congestion present. Mouth/Throat: Mouth: Mucous membranes are moist. Pharynx: Oropharynx is clear. Cardiovascular: Rate and Rhythm: Normal rate and regular rhythm. Heart sounds: Normal heart sounds. Pulmonary: Effort: Pulmonary effort is normal. No respiratory distress. Breath sounds: Normal breath sounds. No wheezing or rhonchi. Musculoskeletal: Cervical back: Neck supple. Skin: General: Skin is warm and dry. Neurological: Mental Status: He is alert. Assessment and Plan ASSESSMENT/PLAN: 1. Sinobronchitis - ICD9: 473.9, 490, ICD10: J32.9, J40 - Will begin treatment with Doxycycline - Follow up in 2-3 days if symptoms persist or worsen. -Not available today on the weekend. Will cover with doxycycline but discussed if not improving the next couple of days to be seen again and reevaluated. Nathalie Nguyen PA-C documented in this encounter [facility] 07-05-2022 Miscellaneous Notes Images from the original note were not included. Patient missed Saturday appointment. Calling to see if he would like to reschedule. HAILE Mejias [facility] [place] Please send no show letter: multiple no shows. Please contact to find out if he wants to reschedule. Very concerned about his condition and memory. Thanks, Joshua Powell PA-C documented in this encounter [facility] 07-03-2022 Note HNO ID: [id number] Author: Cha Powell PA-C Service: ? Author Type: Physician Geographic Information System Surveyor Type: Progress Notes Filed: 07/03/2022 6:23 PM Note Text: No show. Joshua Powell PA-C [facility] 04-24-2022 Miscellaneous Notes Sw called and left message for patient to return Sw call. Will discuss social service needs. Sw called patient to discuss transportation and appt scheduling issues. Call would not go through. Woody will try call again later. Please place consult to care coordination. I don't think Caitie is capable of making appointments and has very serious issues. If they don't provide service, could you ask Gianna if she could assist through social service? Thanks, Joshua Powell PA-C documented in this encounter [facility] 04-17-2022 Miscellaneous Notes Please see pt's response. See mychart message. Please make sure he has derm consult scheduled and taking vitamin C as directed- see mychart message from today. Thanks, Joshua Powell PA-C documented in this encounter [facility] 04-10-2022 Miscellaneous Notes Patient canceled test 2nd attempt, no answer Left message on both home and cell number to return call. Erika Montague Ma Please advise due to contrast allergy needs to take prednisone as follows prior to contrast CT to procedure: The following approved medication requests have been transmitted electronically. Requested Prescriptions Signed Prescriptions Disp Refills predniSONE (DELTASONE) 50 mg 3 tablet 0 Simg by mouth at 13, 7, and 1 hour prior to contrast administration. Authorizing Provider: Cha POWELL PA-C Pt is scheduled for CT with IVCON tomorrow at 9 am Gets Hives after contrast, needs to be medicated before test. documented in this encounter [facility] 03-27-2022 Miscellaneous Notes Patient calls and notified that he needs to set up 3 month appointment, CT Scan, and get labs done. Patient voiced understanding. 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 Rebecca Nunez RN Left message for patient to return call. Erika Montague Ma Please schedule f/u in 3 months. Labs prior Also needs to complete chest CT to r/o pulm nodules. See myc message: please make sure he has read. Orders Only on 03/25/22 VITAMIN C HGB A1C TSH BLD T4 FREE/FREE THYROX T3 BLD Scurvy (primary encounter diagnosis) Subclinical hypothyroidism Thanks, Joshua Powell PA-C documented in this encounter [facility] 03-21-2022 Miscellaneous Notes Called PT LVM to call back and schedule chest CT. Vikki STERLING Patient returned call and went over results, notes from Joshua ANGUIANO with understanding. Schedulers: Please assist with scheduling CT Chest, make sure patient gets labs done prior to CT. Called and left message on patients voicemail to return call to the office and ask to speak with a triage nurse. Jessica Fonseca Ma Please ask him to complete labwork as soon as possible. CXR shows small nodules. Please schedule: Telephone on 03/17/22 CT CHEST W IVCON CREATININE BLD Thanks, Joshua Powell PA-C documented in this encounter [facility] 03-15-2022 Instructions Cha Powell PA-C - 03/15/2022 5:16 PM EDT Images from the original note were not included. [facility] Eczema: Tips on How to Care for Your Skin What is eczema? Eczema is a general term for rash-like skin conditions. The most common type of eczema is called atopic dermatitis, which is an allergic reaction. Eczema is often very itchy and when you scratch it, the skin becomes red and inflamed. As many as 15 million people in the [place] have some form of eczema. It occurs in adults and children, but most often appears on babies. You are more likely to have eczema if you have a family history of the condition. Although the exact cause is unknown, eczema is not contagious. Eczema can t be cured, but it can be managed, and you can learn to avoid the things that trigger it. Limit your contact with things that can irritate your skin. Some things that may irritate your skin include household cleansers, detergents, aftershave lotions, soap, gasoline, turpentine and other solvents. Try to avoid contact with things that make you break out with eczema. Because soaps and wetness can cause skin irritation, wash your hands only when necessary, especially if you have eczema on your hands. Be sure to dry your hands completely after you wash them. Wear gloves to protect the skin on your hands. Wear vinyl or plastic gloves for work that requires you to have your hands in water. Also, wear gloves when your hands will be exposed to anything that can irritate your skin. Wear cotton gloves under plastic gloves to soak up sweat from your hands. Take occasional breaks and remove your gloves to prevent a buildup of sweat inside your gloves. Wear gloves when you go outside during the winter. Cold air and low humidity can dry your skin, and dryness can make your eczema worse. Wear clothes made of cotton or a cotton blend. Wool and some synthetic fabrics can irritate your skin. Most people with sensitive skin feel better in clothes made of cotton or a cotton blend. Care for your skin in the bath or shower. Bathe only with a mild soap, such as Dove, Basis or Oil of Olay. Use a small amount of soap when bathing. Keep the water temperature cool or warm, not hot. Soaking in the tub for a short time can be good for your skin because the skin's outer layer can absorb water and become less dry. Soak for 15 to 20 minutes. Then use a soft towel to pat your skin dry without rubbing. Immediately after drying, apply a moisturizer to your skin. This helps seal in the moisture. Use the medicine your doctor has prescribed for you. When your eczema flares up (gets worse), use the medicine prescribed by your doctor. Use it right after bathing. Medicine used to treat eczema is usually a steroid medicine that you rub on your skin. Follow your doctor's directions for using this medicine or check the label for proper use. Call your doctor if your skin does not get better after 3 weeks of using the medicine. Use a moisturizer on your skin every day. Moisturizers help keep your skin soft and flexible. They prevent skin cracks. A plain moisturizer is best. Avoid moisturizers with fragrances (perfume) and a lot of extra ingredients. A good, cheap moisturizer is plain petroleum jelly (such as Vaseline). Use moisturizers that are more greasy than creamy, because creams usually have more preservatives in them. Regular use of a moisturizer can help prevent the dry skin that is common in winter. Avoid scratching or rubbing the itchy area. Try not to scratch the irritated area on your skin even if it itches. Scratching can break the skin. Bacteria can enter these breaks and cause infection. Moisturizing your skin will help prevent itchiness. Avoid getting too hot and sweaty. Too much heat and sweat can make your skin more irritated and itchy. Try to avoid activities that make you hot and sweaty. Learn how to manage stress in your life. Eczema can flare up when you are under stress. Learn how to recognize and cope with stress. Stress reduction techniques can help. Changing your activities to reduce daily stress can also be helpful. Continue skin care even after your skin has healed. The area where you had the eczema may easily get irritated again, so it needs special care. Continue to follow the tips in this handout even after your skin has healed. Special Instructions: Lac hydrin cream liberally to dry skin areas: may sting in open areas Fluocinonide (cortisone) once or twice a day to crack and fissures up tot 2 weeks and then 1 week. Copyright [place] [employer] 2008 Copyright 2010 [employer] All rights reserved. - www.[employer] documented in this encounter [facility] 03-15-2022 History of Presen t illness Narrative 61 year old male with c/o hx squamous cell cancer throat urgent care follow up 03/14/2022, EC visit: notes dry skin hands and feet for a year, bilateral swelling of feet. Confirmed on exam. Denies SOB, CP. No treatment offered. No testing done. Feet started chapping about 3 days ago Last visit 07/29/2020 From my past notes: Has hx T1N3Mx SCC sinus, larynx treated with chemoradiation therapy 2013. No follow up since 01/2014. Both notes from Dr. Sanches and Dr. Horton indicate he was to have follow up in 6 months. Patient thought treatment was completed and issues resolved. Chronic hoarseness A little trouble swallowing once in awhile: sometimes bolus goes up in to sinus cavity. We reviewed his scores, lifestyle habits recommendations made to reduce alcohol, stop smoking, follow-up routinely for health checks and adjustments for blood pressure. Patient is not sure he wants to push himself into his 70s if it means he has to quit his current habits...I would support his independent decision-making and try to help in the best I can. HISTORIES FAMILY HISTORY Problem Relation Age of Onset Cancer Mother uncertain-possibly pancreatic, patient states she may have had her pancreas removed. Psychiatry Mother bipolar Diabetes Father Heart Father Ischemic Heart Disease Father PAST MEDICAL HISTORY Diagnosis Date Dyslipidemia Encounter for support and coordination of transition of care 04/08/2021 Hospital discharge summary Admission date 04/02/2021 Discharge date 04/03/2021 Prehospital work-up: 04/02/2021 [facility] with altered mental status and confusion, approximately 2 hours prior to arrival, feeling weak all over, generalized numbness and tingling. Patient denied nausea, vomiting, chest pain, shortness of breath. Vital signs 90 7.6F-[id number]/57-93% RA. 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 Apply sparingly to area for rash/itching. (Patient not taking: Reported on 12/23/2020 ) 30 g 0 lisinopril (ZESTRIL, PRINIVIL) 10 mg tablet Take 1 tablet by mouth once daily. (Patient not taking: Reported on 12/23/2020 ) 30 tablet 2 naproxen sodium (ANAPROX) 220 mg tablet Take 220 mg by mouth twice daily with meals. No current facility-administered medications for this visit. COVID-19 VACCINE(1) Never done HIV SCREENING Never done BP CONTROLLED (<130/80) Never done DTAP,TDAP,TD(1 - Tdap) Never done LUNG CANCER SCREENING Never done SHINGRIX VACCINE(1 of 2) Never done PROSTATE CANCER SCREENING DISCUSSION Never done PNEUMOCOCCAL(2 - PCV) due on 03/19/2014 DIABETES SCREEN due on 06/19/2020 DEPRESSION ASSESSMENT Never done ANNUAL PCP TEAM CHRONIC DISEASE VISIT due on 07/29/2021 COLORECTAL CANCER SCREENING due on 08/25/2021 INFLUENZA(1) due on 01/25/2022 BP 148/92 Pulse 68 Resp 24 Wt 73 kg (161 lb) SpO2 95% BMI 21.24 kg/m Pleasant thinning man from exam, unkempt, in no acute distress. Alert and oriented all spheres. Normal affect and cognition. Speech normal. No deficits to learning or comprehension. Skin warm, pink to lips and nailbeds. Normal turgor for age. Severely dry skin all over, particularly hands and feet with fissures, peeling with large flakes. Toes with moist foul smelling debri and erythema in web spaces. Respirations regular and unlabored. HEENT: NCAT. No scleral icterus or conjunctival injection. Conjunctivae pink. TM's clear. Nose and oropharynx free from injection or lesion. Dry tongue, missing teeth, Hoarse, Oral membranes slightly moist and pink. No cervical lymph nodes. Has 1cm mobile white subcutaneous nodule right neck.Thyroid non-tender, no masses, or enlargement. Carotids pulses 2+/4+ without bruits. No JVD with HOB at 30 degrees. Harsh cough, rattles. Chest is clear with diminihed bases. NO accesory muscle use. Speaks in full sentences No clavicular, axillary, or inguinal nodes. Abdomen: active bowel sounds throughout, soft, nontender, no masses or organomegaly. No CVAT. NO bruits. Femoral pulses 2/4+. Extrem: no clubbing or cyanosis. Edema: 1/4+ distal lower legs bilaterally. Extremities are warm and pink with prompt capillary refill. ASSESSMENT/PLAN: 1. Essential hypertension - ICD9: 401.9, ICD10: I10 (primary diagnosis) - suboptimal control due to non-compliance. Resume lisinopril 10mg daily and recheck in 4 weeks. - Continue current medication(s) - Recommended regular aerobic exercise. - Recommend home blood pressure monitoring, to bring results in on next visit - Goal of BP <130/80 - CBC + DIFF - COMP METABOLIC PANEL 2. Low HDL (under 40) - ICD9: 272.5, ICD10: E78.6 - to be determined upon return of lab results - Encouraged following a low fat, low cholesterol diet. - Encouraged following a low carbohydrate, healthy oil intake diet. - LIPID PANEL BASIC 3. Lumbar radiculopathy - ICD9: 724.4, ICD10: M54.16 Chronic, stable, doesn't prevent active work. 4. Neck mass - ICD9: 784.2, ICD10: R22.1 Prefers to stay in [place]. Has improved habits with ETOH, still smoking. Discussed concerns with prior neck mas and malignancy piriform sinus with ETOH and tobacco abuse, weight loss , chronic cough and hoarseness being very concerning signs for cancer recurrence. He does not recall our last discussion in which he declined follow up or willingness to consider social habit changes. He would like to proceed with evaluation. - CONSULT TO ENT - FOLATE SERUM - TSH BLD - URINALYSIS, WITH MICROSCOPIC - XR CHEST 2V FRONTAL/LAT 5. Hoarseness, chronic - ICD9: 784.42, ICD10: R49.0 As above 6. Hx: Malignant neoplasm of pyriform sinus (HCC) - ICD9: 148.1, ICD10: C12 As above - CONSULT TO ENT 7. Tobacco abuse - ICD9: 305.1, ICD10: Z72.0 - Cessation encouraged. - Physiologic and physical aspects of tobacco addiction as well as strategies for quitting were discussed. - Counseling was given focusing on the harmful effects of this addiction especially given the patient's medical condition(s) which will be worsened because of the chemicals in tobacco. He remains resistant to medical therapy for smoking cessation. Discussed options for non-medicine help- also declined - XR CHEST 2V FRONTAL/LAT 8. Risk for coronary artery disease greater than 20% in next 10 years per [place] score - ICD9: V49.89, ICD10: Z91.89 9. Other eczema, severe - ICD9: 692.9, ICD10: L30.8 - Topical steriod tx with Rx for steriod cream/ointment- see orders - discussed skin care of rash - follow up if symptoms persist or worsen. - warm baths x 10min each night to soften and loosen skin flakes. - Dry skin care instructions reviewed - Use mild soap like Dove, Aveeno or Cetaphil - limit shower/bath to less than 15 minutes with warm, not hot, water - BID use of recommended emollients such as Cetaphil, Eucerin Plus, Aveeno, Aquaphor - Follow up if symptoms persist or worsen. - CONSULT TO DERMATOLOGY - FLUOCINONIDE 0.05 % TOPICAL CREAM 10. Weight loss - ICD9: 783.21, ICD10: R63.4 Check labs, consider CT - CBC + DIFF - COMP METABOLIC PANEL - LIPID PANEL BASIC - VITAMIN B1 (THIAMINE), WHOLE BLOOD - VITAMIN B12 BLOOD - VITAMIN C - FOLATE SERUM - TSH BLD - URINALYSIS, WITH MICROSCOPIC - XR CHEST 2V FRONTAL/LAT - CONSULT TO ENT 11. Alcohol abuse - ICD9: 305.00, ICD10: F10.10 - VITAMIN B1 (THIAMINE), WHOLE BLOOD - VITAMIN B12 BLOOD - VITAMIN C - FOLATE SERUM 12. Poor nutrition - ICD9: 269.9, ICD10: E63.9 - VITAMIN B1 (THIAMINE), WHOLE BLOOD - VITAMIN B12 BLOOD - VITAMIN C - FOLATE SERUM - TSH BLD - URINALYSIS, WITH MICROSCOPIC 13. Tinea pedis of right foot - ICD9: 110.4, ICD10: B35.3 - Treat with below twice a day until rash resolves and then another week - air out feet when able each day Bathing with wash clothe of gauze between toes to remove debri. Keep feet dry. Expose to sun 15 minutes daily as able. 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 08/30/2016 Other malignant neoplasm without specification o f site 10/30/2012 03/31/2013 documented as of this encounter (statuses as of 03/21/2022) [facility] History of Past illness Narrative* Problem Noted Date Resolved Date 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 08/30/2016 Other malignant neoplasm without specification o f site 10/30/2012 03/31/2013 documented as of this encounter (statuses as of 03/27/2022) [facility] History of Past illness Narrative* Problem Noted Date Resolved Date 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 08/30/2016 Other malignant neoplasm without specification o f site 10/30/2012 03/31/2013 documented as of this encounter (statuses as of 04/10/2022) [facility] History of Past illness Narrative* Problem Noted Date Resolved Date 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 08/30/2016 Other malignant neoplasm without specification o f site 10/30/2012 03/31/2013 documented as of this encounter (statuses as of 06/13/2022) [facility] of Past illness Narrative* Problem Noted Date Resolved Date 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 08/30/2016 Other malignant neoplasm without specification o f site 10/30/2012 03/31/2013 documented as of this encounter (statuses as of 09/08/2022) [facility] of Past illness Narrative* Problem Noted Date Diagnosed Date Resolved Date 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 08/30/2016 Other malignant neoplasm wit hout specification of site 10/30/2012 03/31/2013 documented as of this encounter (statuses as of 05/03/2023) [facility] History of Past illness Narrative* Problem Noted Date Diagnosed Date Resolved Date 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 08/30/2016 Other malignant neoplasm wit hout specification of site 10/30/2012 03/31/2013 documented as of this encounter (statuses as of 05/26/2023) [facility] Essential hypertension- Primary Unspecified essential hypertension Low HDL (under 40) Lipoprotein deficiencies Lumbar radiculopathy Thoracic or lumbosacral neuritis or radiculitis, unspecified Neck mass Swelling, mass, or lump in head and neck Hoarseness, chronic Dysphonia Malignant neoplasm of pyriform sinus (HCC) Malignant neoplasm of pyriform sinus Tobacco abuse Tobacco use disorder Risk for coronary artery disease greater than 20% in next 10 years per [place] score Other specified conditions influencing health status Other eczema, severe Weight loss Loss of weight Alcohol abuse Alcohol abuse, unspecified Poor nutrition Unspecified nutritional deficiency Tinea pedis of right foot Dermatophytosis of foot [facility] Diagnosis Weight loss- Primary Loss of weight Malignant neoplasm of pyriform sinus (HCC) Malignant neoplasm of pyriform sinus Tobacco abuse Tobacco use disorder Chronic cough Cough [facility] Diagnosis Sinobronchitis- Primary Unspecified sinusitis (chronic) documented in this encounter [facility] Reason for Referral Specialty Diagnoses / Procedures Referred By Ronnell olivia Referred To Contact Ent - Otolaryngology Diagnoses Neck mass Malignant neoplasm of pyriform sinus (HCC) Weight loss Hoarseness, chronic Procedures CONSULT TO ENT OFFICE/OUTPATIENT [facility] [facility] 60-74 [facility]ES Cha Powell PA-C [address] [place] [address] Referral ID Status Reason Start Date Expiration Date Visits Requested Visits Authorized [id number] Authorized PCP Requested Referral 2 03/15/2023 1 1 Specialty Diagnoses / Procedures Referred By Ronnell olivia Referred To Contact Dermatology Diagnoses Other eczema Procedures CONSULT TO DERMATOLOGY OFFICE/OUTPATIENT [facility] 60-74 MINUTES Cha Powell PA-C [address] [place] [address] Referral ID Status Reason Start Date Expiration Date Visits Requested Visits Authorized [id number] Authorized PCP Requested Referral 2 03/15/2023 1 1 Specialty Diagnoses / Procedures Referred By Ronnell t Referred To Contact CT IMAGING Diagnoses Weight loss Malignant neoplasm of pyriform sinus (HCC) Tobacco abuse Chronic cough Procedures CT CHEST W IVCON DIAGNOSTIC COMPUTED TOMOGRAPHY THORAX W/CONTRAST Cha Powell PA-C [address] [place] [address] Ct Imaging Referral ID Status Reason Start Date Expiration Date Visits Requested Visits Authorized [id number] Pending Review Auto-Generat ed Referral 2 04/16/2023 1 1 Summary Purpose Family History No Family History Records Found Advance Directives No Advanced Directives Records Found Additional Source Comments Source Comments (unrecognize d section and content) In the event this informatio n is protected by the Federal Confidentiality of Alcohol and Drug Abuse Patient Records regulations: The Federal rules restrict any use of the information to criminally investigate or prosecute any alcohol or drug abuse patient.[facility] the event this information is protected by the Federal Confidentiality of Alcohol and Drug Abuse Patient Records regulations: The Federal rules restrict any use of the information to criminally investigate or prosecute any alcohol or drug abuse patient.[facility] the event this information is protected by the Federal Confidentiality of Alcohol and Drug Abuse Patient Records regulations: The Federal rules restrict any use of the information to criminally investigate or prosecute any alcohol or drug abuse patient.[facility] the event this information is protected by the Federal Confidentiality of Alcohol and Drug Abuse Patient Records regulations: The Federal rules restrict any use of the information to criminally investigate or prosecute any alcohol or drug abuse patient.[facility] the event this information is protected by the Federal Confidentiality of Alcohol and Drug Abuse Patient Records regulations: The Federal rules restrict any use of the information to criminally investigate or prosecute any alcohol or drug abuse patient.[facility] the event this information is protected by the Federal Confidentiality of Alcohol and Drug Abuse Patient Records regulations: The Federal rules restrict any use of the information to criminally investigate or prosecute any alcohol or drug abuse patient.[facility] the event this information is protected by the Federal Confidentiality of Alcohol and Drug Abuse Patient Records regulations: The Federal rules restrict any use of the information to criminally investigate or prosecute any alcohol or drug abuse patient.[facility] the event this information is protected by the Federal Confidentiality of Alcohol and Drug Abuse Patient Records regulations: The Federal rules restrict any use of the information to criminally investigate or prosecute any alcohol or drug abuse patient.[facility] Center[facility] the event this information is protected by the Federal Confidentiality of Alcohol and Drug Abuse Patient Records regulations: The Federal rules restrict any use of the information to criminally investigate or prosecute any alcohol or drug abuse patient.[facility] Center[facility] the event this information is protected by the Federal Confidentiality of Alcohol and Drug Abuse Patient Records regulations: The Federal rules restrict any use of the information to criminally investigate or prosecute any alcohol or drug abuse patient.[facility] Care Teams (unrecognized sec tion and content) Staffing Executive Relationship Specialty Start Date End Date Cha Powell PA-C [address] [place] [address] PCP - General Family Medicine 11/10/18 Staffing Executive Relationship Specialty Start Date End Date Cha Powell PA-C [address] [place] [address] PCP - General Family Medicine 11/10/18 Staffing Executive Relationship Specialty Start Date End Date Cha Powell PA-C [address] [place] [address] PCP - General Family Medicine 11/10/18 Staffing Executive Relationship Specialty Start Date End Date Cha Powell PA-C [address] [place] [address] PCP - General Family Medicine 11/10/18 Staffing Executive Relationship Specialty Start Date End Date Cha Powell PA-C [address] [place] [address] PCP - General Family Medicine 11/10/18 Staffing Executive Relationship Specialty Start Date End Date Cha Powell PA-C [address] [place] [address] PCP - General Family Medicine 11/10/18 Staffing Executive Relationship Specialty Start Date End Date Cha Powell PA-C [address] [place] [address] PCP - General Family Medicine 11/10/18 Staffing Executive Relationship Specialty Start Date End Date Cha Powell PA-C [address] [place] [address] PCP - General Family Medicine 11/10/18 Reason for Visit (unrecogniz ed section and content) Reason Comments Results Reason Comments Results Reason Comments Orders Reason Comments Patient Update Reason Comments Appointment Reason Comments Chest Congestion With sore throat, fa tigue x 3 weeks (unrecognized sect ion and content) No Status Records Found INFORMATION SOURCE (unrecogn ized section and content) FOR RECORDS PERTAINING TO PATIENTS WHO ARE OR HAVE BEEN ENROLLED IN A CHEMICAL DEPENDENCY/SUBSTANCEABUSE PROGRAM, SOME INFORMATION MAY BE OMITTED. This clinical summary was aggregated from multiple sources. Caution should be exercised in using it in the provision of clinical care. This summary normalizes information from multiple sources, and as a consequence, information in this document may materially change the coding, format and clinical context of patient data. In addition, data may be omitted in some cases. CLINICAL DECISIONS SHOULD BE BASED ON THE PRIMARY CLINICAL RECORDS. [facility] unrival [facility]. provides no warranty or guarantee of the accuracy or completeness of information in this document.
--- NOTE | 2023-06-06 17:58 | RAD_ITS ---
STUDY: X-RAY CHEST REASON FOR EXAM: Male, 63 years old. Atypical chest pain TECHNIQUE: 2 AP portable views COMPARISON: 04/02/2021 FINDINGS: EKG leads overlie the chest The lungs are clear and expanded. There is no demonstrated pleural abnormality. Normal size heart. Normal mediastinum and suyapa. Normal visualized pulmonary arteries. Normal visualized aortic arch and descending thoracic aorta. There are diffuse degenerative changes of the visualized thoracic spine. There is degenerative osteoarthritis of the bilateral shoulders. There is no demonstrated abnormality of the visualized soft tissue structures of the upper abdomen. RAD/Chest 1 View (Portable) IMPRESSION: No acute pulmonary process Electronically Signed: Jason Flores MD at 18:08 EST ,
--- NOTE | 2023-06-06 18:07 | EDS_ITS ---
HPI History of Present Illness Chief Complaint: Shortness of Breath Narrative Narrative: 63-year-old male presenting with dyspnea. He states been coughing and short of breath for about a month. He saw the urgent care a couple of days ago and was told his oxygen was low while he was at the urgent care. They recommended he came to the ER, and he stated he went home. He states he has a little bit of mucus production but has not a fever, chills, body aches. He is eating and drinking okay. Is making normal urine and stool. He states he does not have any history of COPD or asthma. Denies heart problems. [facility] Medical History Hypertension Weakness of left upper extremity Home Medications azithromycin 250 mg tablet 250 mg PO DAILY #4 TABLETS 06/06/23 [Rx Last Taken Unknown] Allergy/AdvReac Type Severity Reaction Status Date / Time No Known Allergies Allergy Verified 03/04/23 12:26 Social History household members: none housing: other current occupational status: employed Smoking Status: Current every day smoker tobacco type: cigarettes ROS ROS ED Constitutional Constitutional ED: Denies chills, fever(s) or sweats Eyes Eyes: Denies blurry vision or change in vision ENT ENT ED: Denies ear pain or sore throat Cardiovascular Cardiovascular: Denies chest pain, palpitations or racing heartbeat Respiratory/Chest Respiratory/Chest: Reports cough and dyspnea; Denies sputum Gastrointestinal Gastrointestinal: Denies abdominal pain, constipation, diarrhea, nausea or vomiting Genitourinary Genitourinary ED: Denies dysuria, hematuria or urinary frequency Musculoskeletal Musculoskeletal: Denies arthralgias, myalgias or neck pain Integumentary Denies abscess, Abrasions or rash Neurologic Neurologic: Denies headache(s), paresthesias or weakness Psychiatric Psychiatric: Denies anxiety, depression, suicidal ideation or suicidal thoughts Endocrine Endocrinology: Denies polydipsia or polyuria EXAM Physical Exam Const Vital Signs: 06/06/23 16:51 06/06/23 16:54 06/06/23 16:54 Temperature 98.1 F 98.1 F Temperature Source Temporal Temporal Pulse Rate 86 86 Respiratory Rate 16 16 Respiratory Effort Short of Breath Respiratory Depth Normal Respiratory Pattern Normal Blood Pressure 153/109 H 153/109 H Blood Pressure Mean 123 123 Pulse Ox 95 95 Oxygen Delivery Method Room Air Room Air Room Air Oxygen Flow Rate (L/min) 06/06/23 18:13 06/06/23 19:38 Temperature Temperature Source Pulse Rate 83 Respiratory Rate 19 H Respiratory Effort Respiratory Depth Respiratory Pattern Blood Pressure 167/103 H Blood Pressure Mean 124 Pulse Ox 95 96 Oxygen Delivery Method Nasal Cannula Nasal Cannula Oxygen Flow Rate (L/min) 2 2 Positive well nourished General Appearance ED: NAD; Negative for pallor HEENT Reports moist mucous membranes Eyes PERRL and EOMs intact bilaterally Neck no lymphadenopathy and supple Resp normal respiratory effort and clear to auscultation bilaterally Auscultation: Negative for rales, rhonchi or wheezes Cardio regular rate and regular rhythm GI non-tender and non-distended Neuro oriented x3 and CN's II-XII intact bilaterally Sensorium / Orientation: alert Motor Exam: strength 5/5 throughout Psych mental status grossly normal Thought Process: normal thought process Skin no wounds General Skin Exam: Negative for jaundice or pallor MDM MDM MDM Narrative Medical decision making narrative: Patient presented with dyspnea and cough. States been present for a month. Differential includes pneumonia, COVID, influenza, COPD, anemia, dehydration, [place] abnormalities, ACS, CHF. CBC was obtained to assess for blood cell count, hemoglobin, platelets. BMP to assess renal function and electrolytes. High-sensitivity troponin and EKG to assess for ischemia/dysrhythmia. Chest x- ray to rule out pneumonia or CHF. BNP will be obtained to rule out CHF. COVID, influenza, RSV swab will be obtained. Patient states he was hypoxic 2 days ago. On examination he does not appear to be hypoxic I turned off his oxygen that was placed on when he arrived and he is 96 to 100% on room air sitting in the bed with good waveforms. CBC shows normal white blood cell count 7.6. Hemoglobin 14.8. Platelets are normal at 3.6. Renal function electrolytes unremarkable. High-sensitivity troponin 21. EKG on my interpretation is normal sinus rhythm with ventricular rate of 85 bpm without sign of ischemic change. Chest x-ray on my interpretation shows no acute process. BNP 13.7. COVID, influenza, RSV all negative. Patient ambulated with pulse ox and desats to 84% is very symptomatic. Given this we will obtain CT of the chest to rule out PE or other etiology. CTA of the chest shows no PE or other infiltrates. There is no acute process noted. Patient is still hypoxic when ambulating. I counseled him he needed to be admitted to the hospital for further care. He states that he does not want to stay in the hospital. He is alert and awake and has capacity to make this decision. I counseled him at length that with his hypoxia he may get confused may end up with severe disability, injury, . He acknowledged understanding of this. I had the appropriate AMA paperwork filled out. I will send him home on azithromycin just to cover him for pulmonary source although I have not identified him as having 1 and all his lab work is normal. Return precautions were discussed. Impression: 1. Dyspnea 2. Hypoxia Lab Data Attestation: I reviewed the patient's lab results. Labs: Laboratory Results - last 24 hr 06/06/23 17:06 WBC 7.6 RBC 4.49 L Hgb 14.8 Hct 43.8 MCV 97.6 H MCH 33.0 H MCHC 33.8 RDW Std Deviation 43.7 RDW Coeff of Tony 12.1 Plt Count 346 MPV 10.8 Immature Gran % (Auto) 0.100 Neut % (Auto) 74.0 H Lymph % (Auto) 16.0 L [place] % (Auto) 7.7 Eos % (Auto) 1.1 Baso % (Auto) 1.1 H Absolute Neuts (auto) 5.6 Absolute Lymphs (auto) 1.21 Nucleated RBC % 0 Platelet Estimate ADEQUATE Plt Morphology Comment LARGE RBC Morphology N CHROM Anisocytosis RARE Macrocytosis RARE Sodium 132 L Potassium 4.4 Chloride 93 L Carbon Dioxide 34.0 H Anion Gap 5 BUN 23 H Creatinine 1.14 Estim Creat Clear Calc 60.12 Est GFR (MDRD) Af Amer 83 Est GFR (MDRD) Non-Af 69 BUN/Creatinine Ratio 20.2 H Glucose 109 H Calcium 9.9 Troponin I High Sens 21 B-Natriuretic Peptide 13.7 Radiography Diagnostic Testing: Clinical Impression(s) from Imaging Studies Chest X-Ray 06/06/23 17:58 IMPRESSION: No acute pulmonary process Electronically Signed: Jason Flores MD at 18:08 EST , Chest CTA 06/06/23 19:35 IMPRESSION: No demonstrated PE, or thoracic aortic aneurysm or dissection Hyperexpanded lungs with chronic interstitial changes, no superimposed acute pulmonary process No suspicious adenopathy Electronically Signed: Jason Flores MD at 20:04 EST Reading Location ID and State: [address] [place] [address] , Service support , Discharge Plan Triage Chief Complaint: Shortness of Breath Other Complaint: Cough ED Provider: Brando Lubin Dx/Rx/DC Orders Instructions: ED Dyspnea Prescriptions: New azithromycin 250 mg tablet 250 mg PO DAILY Qty: 4 0RF Primary Care Provider: Cha Powell Referrals: Cha Powell PA [Primary Care Provider] - Disposition Disposition: Against Medical Advice
[2023-06-06 18:09] LABS: Absolute Lymphocyte Count 1.21 X10^3/uL (0.83-4.51); Absolute Neutrophil Count 5.6 X10^3/uL (2.0-7.7); Basophil# 0.08 X10^3/uL; Basophil% 1.1 % (0-1); Eosinophil# 0.08 X10^3/uL; Eosinophils% 1.1 % (0-5); Hematocrit 43.8 % (40-54); Hemoglobin 14.8 g/dL (13.0-16.5); Lymphocyte # 1.21 X10^3/ul (0.83-4.51); Mean Corp Hgb Conc 33.8 g/dL (32-36); Mean Corpuscular Volume 97.6 fL (80-94); Mean Platelet Vol. 10.8 fl (6.2-12.0); Monocyte# 0.58 X10^3/uL; Monocyte% 7.7 % (0-10); NRBC Flagged by Analyzer 0 % (0-5); Neutrophil # 5.59 X10^3/uL (2.7-7.7); POSITIVE COUNT YES; Platelet Count 346 K/mm3 (150-450); RBC Distribution Width CV 12.1 % (11.6-14.6); RBC Distribution Width SD 43.7 fl (35.1-43.9); Red Blood Count 4.49 M/mm3 (4.6-6.2); White Blood Count 7.6 K/mm3 (4.4-11.0)
[2023-06-06] MEDS: 0.9% Normal Saline (1000mL) 1,000 ML 1000 ML IV (18:11)
[2023-06-06 18:13] VITALS: O2SAT 95
[2023-06-06 18:26] LABS: Anion Gap 5 (5-15); BUN 23 mg/dL (7-18); BUN/Creat Ratio 20.2 RATIO (10-20); Calcium,Total 9.9 mg/dL (8.5-10.1); Chloride 93 mmol/L (98-107); Creatinine, Serum 1.14 mg/dL (0.70-1.30); EST Glomerular Filtration Rate 69 mL/min (>60); Est Glom Filt Rate - Afr Amer 83 mL/min (>60); Estimated Creatinine Clearance 60.12 ml/min; Glucose 109 mg/dL (74-106); Potassium 4.4 mmol/L (3.5-5.1); Sodium Level 132 mmol/L (136-145); Troponin-I HS 21 pg/mL (3.0-78.0)
[2023-06-06 18:31] LABS: Differential Indicated SCAN CRITERIA MET
[2023-06-06 18:32] LABS: Anisocytosis RARE; Macrocytosis RARE; Platelet Estimate ADEQUATE (ADEQ); Platelet Morphology LARGE; Red Cell Morphology N CHROM NORMAL (NORM C&C)
[2023-06-06 18:39] LABS: BNP,B-Type NATRIURETIC PEPTIDE 13.7 pg/mL (0-100)
--- NOTE | 2023-06-06 19:35 | CT_ITS ---
STUDY: CTA CHEST REASON FOR EXAM: Male, 63 years old. Atypical chest pain, diaphoresis RADIATION DOSAGE (If Supplied By Facility): CTDIvol = ( 10.15 ) mGy, DLP = ( 334.06 ) mGycm TECHNIQUE: The examination was performed with the intravenous administration of IV 100mL Isovue-370. Post-processing of the angiographic images was performed, with multiplanar reformation and 3D reconstruction. Individualized dose optimization techniques were used for this CT. COMPARISON: None. FINDINGS: Normal enhancement of the main pulmonary artery and right and left pulmonary arteries. Normal enhancement of the bilateral peripheral pulmonary arteries. There is no demonstrated pulmonary embolism. Normal thoracic aorta and visualized great vessels. There is no demonstrated aortic dissection. Normal heart and pericardium. Normal mediastinum. Normal hilar regions. Normal visualized trachea and bronchi. The lungs are hyper expanded, with flattening of the hemidiaphragms. Chronic interstitial changes noted in both lung bases with fibrotic scarring in the dependent lung tian. No organized infiltrate or effusion. Normal pleura. Normal chest wall structures. There are degenerative changes of thoracic spine. Normal visualized upper abdomen. CT/CTA Chest W/WO Contrast IMPRESSION: No demonstrated PE, or thoracic aortic aneurysm or dissection Hyperexpanded lungs with chronic interstitial changes, no superimposed acute pulmonary process No suspicious adenopathy Electronically Signed: Jason Flores MD at 20:04 EST ,
[2023-06-06 19:36] VITALS: O2SAT 96
[2023-06-06 19:38] VITALS: BP 167/103; PULSE 83; RESP 19; O2SAT 96
[2023-06-06] MEDS: Azithromycin 250 MG Tablet 500 MG PO (20:44)
[2023-06-06 20:47] VITALS: BP 160/79; PULSE 89; RESP 20; O2SAT 91
== END 2023-06-06 20:48 | disposition left against medical advice (07) ==
PROVIDERS: Emergency Provider Student in an Organized Health Care Education/Training Program; PCP Physician Assistant; Visit Provider Student in an Organized Health Care Education/Training Program
DX: R06.02 Shortness of breath (principal); R09.02 Hypoxemia; F17.210 Nicotine dependence, cigarettes, uncomplicated
CPT/HCPCS: 71045; 71275; 80048; 83880; 84484; 85025; 87631; 93005; 96360; 96361; 99284; J7030; Q9967

== ENCOUNTER 2023-06-26 11:03 | Emergency (ER) | payer MEDICARE, MEDICAID, SELFPAY ==
[2023-06-26] VITALS (7 sets, daily range): BP systolic 78–132; BP diastolic 58–86; PULSE 74–88; RESP 16–22; TEMP 36.4; O2SAT 92–96; BMI 19.4
--- NOTE | 2023-06-26 11:59 | ED.VIS.DYS ---
HPI History of Present Illness Chief Complaint: Shortness of Breath Detail of Chief Complaint: Shortness of breath Informant: patient Narrative Narrative: Patient presents to the emergency department with complaint of shortness of breath it has been going on for over a month. He has had cough and congestion. He denies any chest pain. He denies fever. Cough mostly nonproductive but occasionally brings up some phlegm and some mucus. Denies recent travel or surgery. He was more short of breath today. Patient states that he has been to urgent care for this but really was not given much in the way of treatments. Patient has history of hypertension. [facility] Medical History Hypertension Weakness of left upper extremity Home Medications prednisone 20 mg tablet 20 mg PO BID #10 tabs 06/26/23 [Rx Last Taken Unknown] Allergy/AdvReac Type Severity Reaction Status Date / Time No Known Allergies Allergy Verified 06/26/23 11:12 Social History household members: none housing: other current occupational status: employed Smoking Status: Current every day smoker tobacco type: cigarettes ROS ROS ED Review of Systems ROS Unobtainable: other Constitutional Constitutional ED: Reports lethargy; Denies chills, fever(s), sweats or weight loss Eyes Eyes: Denies blurry vision, change in vision or diplopia ENT ENT ED: Denies rhinorrhea or sore throat Cardiovascular Cardiovascular: Reports chest pain; Denies orthopnea or racing heartbeat Respiratory/Chest Respiratory/Chest: Reports cough, dyspnea and dyspnea on exertion; Denies orthopnea or sputum Gastrointestinal Gastrointestinal: Denies abdominal pain, diarrhea, nausea or vomiting Genitourinary Genitourinary ED: Denies dysuria, hematuria or urinary frequency Musculoskeletal Musculoskeletal: Denies arthralgias, back pain, myalgias or neck pain Integumentary Denies abscess, Abrasions or rash Neurologic Neurologic: Denies headache(s) or weakness Psychiatric Psychiatric: Denies anxiety, depression or suicidal thoughts Endocrine Endocrinology: Denies polydipsia, polyphagia or polyuria Hematologic/Lymphatic Hematologic/Lymphatic: Denies easy bleeding, easy bruising or lymphadenopathy Allergic/Immunologic Allergic/Immunologic ED: Denies mouth swelling, tongue swelling or urticaria EXAM Physical Exam Const Vital Signs: 06/26/23 11:06 06/26/23 11:14 06/26/23 11:36 Temperature 97.5 F L Temperature Source Temporal Pulse Rate 81 74 Respiratory Rate 16 22 H Respiratory Effort Non-Labored Short of Breath Respiratory Depth Normal Respiratory Pattern Normal Blood Pressure 78/58 L 113/75 Blood Pressure Mean 64 87 Pulse Ox 93 Oxygen Delivery Method Room Air Room Air 06/26/23 12:33 06/26/23 12:33 06/26/23 12:16 Temperature Temperature Source Pulse Rate 88 Respiratory Rate 18 Respiratory Effort Respiratory Depth Respiratory Pattern Normal Blood Pressure 132/86 H Blood Pressure Mean 101 Pulse Ox Oxygen Delivery Method Room Air 06/26/23 12:16 06/26/23 13:31 06/26/23 15:18 Temperature Temperature Source Pulse Rate 74 Respiratory Rate 22 H Respiratory Effort Respiratory Depth Respiratory Pattern Blood Pressure 131/81 H Blood Pressure Mean 97 Pulse Ox 92 96 95 Oxygen Delivery Method Room Air Room Air Positive well nourished and well developed General Appearance ED: well developed and NAD HEENT Reports TM's clear and moist mucous membranes normocephalic and atraumatic; Negative for trauma or tenderness Tympanic Membrane ED: Yes TM's clear Eyes PERRL and EOMs intact bilaterally General Eye ED: Negative for pale conjunctiva or scleral icterus Neck no lymphadenopathy, supple and no JVD General: Negative for tenderness Chest Wall inspection of chest normal and palpation of chest normal Chest: Negative for tenderness Resp normal respiratory effort and clear to auscultation bilaterally Resp Narrative: No significant tachypnea or accessory muscle use. Faint expiratory wheezes bilaterally. Effort and Inspection: Negative for respiratory distress or pain with movement Auscultation: Negative for rhonchi, wheezes or diminished lung sounds Cardio regular rate, regular rhythm, S1 normal heart sound, S2 normal heart sound and no murmurs Peripheral Pulses: pulses 2+ throughout GI normal to inspection, nondistended, normoactive bowel sounds, soft to palpation, non-tender, non-distended and no masses Back/Spine no CVA tenderness and no thoracic nor lumbar tenderness Extremity normal to inspection General Extremety ED: Negative for edema General Extremity: Negative for edema Neuro oriented x3, CN's II-XII intact bilaterally, no sensory deficits noted and gait normal Sensorium / Orientation: awake, alert, oriented to person, oriented to place and oriented to time Motor Exam: strength 5/5 throughout and strength abnormal Psych mental status grossly normal Skin no rashes or lesions noted and no wounds MDM MDM MDM Narrative Medical decision making narrative: Patient presents with dyspnea for about a month. Has had a chronic cough. No fevers. He denies chest pain. In the differential would be infectious etiology versus PE versus cardiac etiology. IV line established. EKG obtained showed a sinus rhythm with a rate of 79 bpm with no acute ST segment changes. He did have a prolonged QT with QTc of 493. CBC with differential white count of 9.8 with hemoglobin of 13.4 and platelet count of 405. Chemistries unremarkable. D-dimer was normal. BNP was 28.9 and troponin was 15. Lactate was slightly elevated 2.3 however I do not feel patient is septic. Chest x-ray showed hyperinflation otherwise no acute disease process. I did give patient a DuoNeb aerosol. [place] improved. Was able to ambulate to the bathroom without difficulty. Patient will be discharged to home diagnosis of dyspnea. Will order an albuterol MDI and prednisone. Advised to follow-up with primary care physician within next 3 to 5 days. Vies to return if increasing shortness of breath or condition should worsen anyway. Patient also had COVID flu and RSV testing which was negative. Lab Data Attestation: I reviewed the patient's lab results. Labs: Laboratory Results - last 24 hr 06/26/23 06/26/23 06/26/23 11:01 11:15 12:08 WBC 9.8 RBC 4.05 L Hgb 13.4 Hct 40.6 MCV 100.2 H MCH 33.1 H MCHC 33.0 RDW Std Deviation 47.4 H RDW Coeff of Tony 12.7 Plt Count 405 MPV 9.6 Immature Gran % (Auto) 0.400 Neut % (Auto) 80.9 H Lymph % (Auto) 12.1 L [place] % (Auto) 4.8 Eos % (Auto) 0.9 Baso % (Auto) 0.9 Absolute Neuts (auto) 7.9 H Absolute Lymphs (auto) 1.18 Nucleated RBC % 0 D-Dimer Quant (PE/DVT) 0.40 Sodium 131 L Potassium 3.7 Chloride 98 Carbon Dioxide 28.0 Anion Gap 5 BUN 22 H Creatinine 1.36 H Estim Creat Clear Calc 52.62 Est GFR (MDRD) Af Amer 68 Est GFR (MDRD) Non-Af 56 L BUN/Creatinine Ratio 16.2 Glucose 126 H Lactic Acid 2.3 H* Calcium 9.3 Troponin I High Sens 15 B-Natriuretic Peptide 28.9 POC Glucose 124 H Radiography Diagnostic Testing: Clinical Impression(s) from Imaging Studies Chest X-Ray 06/26/23 12:30 IMPRESSION: No acute cardiopulmonary abnormality. COPD. Electronically Signed: Lweis Barrow MD at 13:05 EST , 1 view chest x-ray obtained interpreted by myself as no evidence of infiltrate or pneumothorax or acute disease process. I feel he had some hyperinflation and radiology was in agreement with the interpretation. EKG Initial EKG: Attestation: I personally reviewed and interpreted this EKG as follows: Comments: Sinus rhythm with rate of 79 bpm with no acute ST segment changes, prolonged QTc at 493. Discharge Plan Triage Chief Complaint: Shortness of Breath ED Provider: Taina Robison Dx/Rx/DC Orders Clinical Impression: Acute dyspnea Instructions: ED Dyspnea Prescriptions: New prednisone 20 mg tablet 20 mg PO BID Qty: 10 0RF Primary Care Provider: Cha Powell Referrals: Cha Powell PA [Primary Care Provider] - 3-5 Days Disposition Disposition: Home, Self Care Discharge Date/Time: 06/26/23 15:18
[2023-06-26 12:16] LABS: Absolute Lymphocyte Count 1.18 X10^3/uL (0.83-4.51); Absolute Neutrophil Count 7.9 X10^3/uL (2.0-7.7); Basophil# 0.09 X10^3/uL; Basophil% 0.9 % (0-1); Eosinophil# 0.09 X10^3/uL; Eosinophils% 0.9 % (0-5); Hematocrit 40.6 % (40-54); Hemoglobin 13.4 g/dL (13.0-16.5); Lymphocyte # 1.18 X10^3/ul (0.83-4.51); Lymphocyte % 12.1 % (19-41); Mean Corpuscular Hgb 33.1 pg (27.0-32.0); Mean Corpuscular Volume 100.2 fL (80-94); Mean Platelet Vol. 9.6 fl (6.2-12.0); Monocyte# 0.47 X10^3/uL; Monocyte% 4.8 % (0-10); NRBC Flagged by Analyzer 0 % (0-5); Neutrophil # 7.92 X10^3/uL (2.7-7.7); Neutrophil % 80.9 % (47-70); Platelet Count 405 K/mm3 (150-450); RBC Distribution Width CV 12.7 % (11.6-14.6); RBC Distribution Width SD 47.4 fl (35.1-43.9); Red Blood Count 4.05 M/mm3 (4.6-6.2); White Blood Count 9.8 K/mm3 (4.4-11.0)
[2023-06-26] MEDS: Ipratropium/Albuterol Sulfate 3 ML AMPUL.NEB INHALATION (12:16)
--- NOTE | 2023-06-26 12:30 | RAD_ITS ---
EXAM: XR CHEST, 1 VIEW CLINICAL INDICATION: dyspnea TECHNIQUE: Frontal view of the chest. COMPARISON: XR Chest dated 06/06/2023 FINDINGS: LUNGS AND PLEURAL SPACES: Hyperinflation suggesting emphysema. HEART: Normal heart size. MEDIASTINUM: No mediastinal or hilar mass. BONES/JOINTS: No acute abnormality. RAD/Chest 1 View (Portable) IMPRESSION: No acute cardiopulmonary abnormality. COPD. Electronically Signed: Lewis Barrow MD at 13:05 EST ,
[2023-06-26] MEDS: 0.9% Normal Saline (1000mL) 1,000 ML 150 ML IV (12:31)
[2023-06-26 12:33] LABS: Anion Gap 5 (5-15); BUN 22 mg/dL (7-18); BUN/Creat Ratio 16.2 RATIO (10-20); Calcium,Total 9.3 mg/dL (8.5-10.1); Chloride 98 mmol/L (98-107); Creatinine, Serum 1.36 mg/dL (0.70-1.30); EST Glomerular Filtration Rate 56 mL/min (>60); Est Glom Filt Rate - Afr Amer 68 mL/min (>60); Estimated Creatinine Clearance 52.62 ml/min; Glucose 126 mg/dL (74-106); Potassium 3.7 mmol/L (3.5-5.1); Sodium Level 131 mmol/L (136-145); Troponin-I HS 15 pg/mL (3.0-78.0)
[2023-06-26 12:34] LABS: BNP,B-Type NATRIURETIC PEPTIDE 28.9 pg/mL (0-100)
[2023-06-26 13:24] LABS: Lactic Acid 2.3 mmol/L (0.4-1.9)
[2023-06-26 14:46] LABS: Bedside Glucose 124 mg/dL (74-106)
[2023-06-26] MEDS: Albuterol Sulfate 8 gm Inhaler (60 puffs) 2 PUFF INHALATION (15:10)
[2023-06-26 16:37] LABS: Reflex Lactate? Y
== END 2023-06-26 15:18 | disposition home or self-care (01) ==
PROVIDERS: Emergency Provider Emergency Medicine; PCP Physician Assistant; Visit Provider Emergency Medicine
DX: R06.02 Shortness of breath (principal); F17.210 Nicotine dependence, cigarettes, uncomplicated; I10 Essential (primary) hypertension; R05.9 Cough, unspecified; R07.9 Chest pain, unspecified
CPT/HCPCS: 71045; 80048; 82962; 83605; 83880; 84484; 85025; 85379; 87040; 87631; 93005; 96360; 96361; 99285; A4216

== ENCOUNTER 2023-08-07 18:51 | Inpatient (IN) | payer MEDICARE, MEDICAID, SELFPAY ==
[2023-08-07] VITALS (8 sets, daily range): BP systolic 96–140; BP diastolic 52–99; PULSE 40–104; RESP 14–31; TEMP 36.3–36.6; O2SAT 87–97; BMI 23.1; BMI 21.1; BMI 16.5
--- NOTE | 2023-08-07 19:23 | CT_ITS ---
STUDY: CT BRAIN WITHOUT CONTRAST REASON FOR EXAM: Male, 63 years old. falls, head injury RADIATION DOSAGE (If Supplied By Facility): CTDIvol = ( 44.99 ) mGy, DLP = ( 846.73 ) mGycm TECHNIQUE: Transaxial CT imaging of the brain was performed without administration of intravenous contrast material. Individualized dose optimization techniques were used for this CT. COMPARISON: 04/02/2021 FINDINGS: Normal soft tissue structures. Normal calvarium. Normal size ventricles and extra-axial spaces for the patient''s age. Normal white matter tracts of the cerebral hemispheres. Normal basal ganglia and thalami. Normal brainstem. Normal cerebellum. There is no intracranial hemorrhage. There are no findings of an acute ischemic infarction. Normal visualized paranasal sinuses. CT/Brain/Head without Contrast IMPRESSION: Normal unenhanced CT scan of the brain. Electronically Signed: Oliver Macias MD at 20:29 EDT ,
--- NOTE | 2023-08-07 19:24 | EKG12_ITS ---
Test Reason : ADMIT EKG Blood Pressure : / mmHG Vent. Rate : 075 BPM Atrial Rate : 075 BPM P-R Int : 108 ms QRS Dur : 096 ms QT Int : 434 ms P-R-T Axes : 042 062 068 degrees QTc Int : 484 ms Sinus rhythm with short VA Prolonged QT Abnormal ECG When compared with ECG of 07-AUG-2023 20:06, MANUAL COMPARISON REQUIRED, DATA IS UNCONFIRMED Confirmed by Castro Patiño ([id number]), photograph editor DARWIN AGUILAR ([id number]) on 08/09/2023 1:57:37 PM Referred By: Confirmed By:Castro Patiño
[2023-08-07] MEDS: 0.9% Normal Saline (1000mL) 1,000 ML 150 ML IV (19:30)
[2023-08-07 19:32] LABS: Absolute Lymphocyte Count 0.67 X10^3/uL (0.83-4.51); Absolute Neutrophil Count 12.5 X10^3/uL (2.0-7.7); Basophil# 0.11 X10^3/uL; Basophil% 0.8 % (0-1); Hematocrit 42.8 % (40-54); Hemoglobin 14.6 g/dL (13.0-16.5); Lymphocyte # 0.67 X10^3/ul (0.83-4.51); Lymphocyte % 4.8 % (19-41); Mean Corp Hgb Conc 34.1 g/dL (32-36); Mean Corpuscular Hgb 34.4 pg (27.0-32.0); Mean Corpuscular Volume 100.9 fL (80-94); Mean Platelet Vol. 9.6 fl (6.2-12.0); Monocyte# 0.56 X10^3/uL; NRBC Flagged by Analyzer 0 % (0-5); Neutrophil % 89.2 % (47-70); Platelet Count 305 K/mm3 (150-450); RBC Distribution Width CV 16.7 % (11.6-14.6); RBC Distribution Width SD 62.4 fl (35.1-43.9); Red Blood Count 4.24 M/mm3 (4.6-6.2)
--- NOTE | 2023-08-07 19:40 | RAD_ITS ---
STUDY: X-RAY - UNILATERAL RIBS ( LEFT ) WITH CHEST REASON FOR EXAM: Male, 63 years old. pain, fall TECHNIQUE - RIBS: 4 view(s) of the ribs. TECHNIQUE - CHEST: Single AP portable view of the chest. COMPARISON: 06/26/2023. FINDINGS - RIBS: Normal visualized ribs without a demonstrated fracture. FINDINGS - CHEST: The lungs are hyperexpanded. There are coarsened interstitial markings suggestive of mild chronic fibrosis. Asymmetric hazy increased density seen throughout the right lung not present previously. Findings could be asymmetric pulmonary edema or inflammatory infiltrate. No gross effusion. Consider CT scan for better evaluation. Left lung remains clear. Normal size heart. Normal mediastinum and suyapa. Normal visualized pulmonary arteries. Normal visualized aortic arch and descending thoracic aorta. Normal visualized thoracic spine. Normal visualized ribs, clavicles, and shoulders. There is no demonstrated abnormality of the visualized soft tissue structures of the upper abdomen. RAD/Ribs Uni Min 3V w/PA Chest IMPRESSION: RIBS: Normal x-ray examination of the ribs. CHEST: COPD with hazy diffuse increased density of the right lung. CT scan recommended for better evaluation. Electronically Signed: Oliver Macias MD at 20:08 EDT ,
--- NOTE | 2023-08-07 19:40 | RAD_ITS ---
STUDY: X-RAY - LEFT HUMERUS REASON FOR EXAM: Male, 63 years old. pain, fall TECHNIQUE: 2 view(s) of the humerus. COMPARISON: None. FINDINGS: Normal visualized humerus. There is no demonstrated fracture or osseous destructive process. There is no demonstrated soft tissue abnormality. RAD/Humerus min 2 Views IMPRESSION: Normal x-ray examination of the humerus. Electronically Signed: Oliver Macias MD at 20:05 EDT ,
[2023-08-07 19:58] LABS: BNP,B-Type NATRIURETIC PEPTIDE 89.4 pg/mL (0-100)
[2023-08-07] MEDS: Ipratropium/Albuterol Sulfate 3 ML AMPUL.NEB INHALATION (20:04)
[2023-08-07 20:23] LABS: Anion Gap 6 (5-15); BUN 26 mg/dL (7-18); BUN/Creat Ratio 26.7 RATIO (10-20); Calcium,Total 8.3 mg/dL (8.5-10.1); Chloride 96 mmol/L (98-107); Creatinine, Serum 0.97 mg/dL (0.70-1.30); EST Glomerular Filtration Rate 82 mL/min (>60); Est Glom Filt Rate - Afr Amer 99 mL/min (>60); Estimated Creatinine Clearance 87.68 ml/min; Glucose 128 mg/dL (74-106); Potassium 3.5 mmol/L (3.5-5.1); Sodium Level 134 mmol/L (136-145); Thyroid Stim Hormone (TSH) 2.72 uIU/mL (0.358-3.74); Troponin-I HS 212 pg/mL (3.0-78.0)
--- NOTE | 2023-08-07 21:22 | CT_ITS ---
EXAM: CT ANGIOGRAPHY CHEST WITHOUT AND WITH INTRAVENOUS CONTRAST CLINICAL INDICATION: sob, abnormal cxr, high risk PE TECHNIQUE: Helically acquired angiography images were obtained of the chest without and with intravenous contrast. This CT exam was performed using one or more of the following dose reduction techniques: automated exposure control, adjustment of the mA and/or kV according to patient size, and/or use of iterative reconstruction technique. MIP reconstructed images were created and reviewed. CONTRAST: IV 75mL Isovue-370 RADIATION DOSE: CTDIvol = 10.17 mGy, DLP = 453.97 mGy-cm COMPARISON: Chest x-ray of the same day FINDINGS: LIMITATIONS: Exam is limited by improper positioning of patient''s arms resulting in significant streak artifact. PULMONARY ARTERIES: Unremarkable. Normal in caliber. No evidence of pulmonary embolism. AORTA: Unremarkable. Normal in caliber. No evidence of dissection. GREAT VESSELS OF AORTIC ARCH: Unremarkable. Normal in caliber. No evidence of dissection. LUNGS AND PLEURAL SPACES: Marked hyperexpansion of lungs and evidence of severe COPD with interstitial thickening and diffuse bronchiectasis. Widespread bilateral patchy ill-defined irregular nodular pulmonary opacities most consistent with inflammatory disease, most pronounced on the right but also seen in the left lung, especially the left lower lobe. Findings also could represent widespread neoplastic disease but this is less likely. No pneumothorax. No gross effusions. HEART: Unremarkable. Heart size is normal. No pericardial effusion. No significant coronary artery calcifications. MEDIASTINUM: Probable right hilar and subcarinal adenopathy or neoplastic mass. Esophagus is unremarkable. No hiatal hernia. THYROID: Unremarkable. No thyroid lesions. BONES/JOINTS: Degenerative changes throughout the spine. CT/CTA Chest W/WO Contrast IMPRESSION: 1. No evidence for pulmonary embolism. 2. Severe COPD with interstitial fibrosis and bronchiectasis. 3. Widespread bilateral probable diffuse inflammatory disease worse on the right. However, neoplastic disease is not excluded and there may be adenopathy or neoplasm in and around the right hilum. Bronchoscopy is suggested. Electronically Signed: Oliver Macias MD at 22:09 EDT ,
--- NOTE | 2023-08-07 21:54 | PCM.HP.STD ---
HPI - General General Date of Admission: 08/07/23 Date of Service: 08/07/23 Chief Complaint: SOB. HPI Narrative CAITIE JIN, is a 63 M with a past medical history of tobacco abuse; with no previous diagnosis of COPD, essential hypertension and a chronic history of avoiding medical attention who presents to [facility] ER complaining of SOB. Mr. Jin reports his symptoms began approximately 10 days prior to admission with a gradual onset of dyspnea on exertion that progressed to shortness of breath at rest. He also admits to feeling like he has no strength in his legs with increasing falls and subsequent pain in his left collarbone and bruised left ribs but he denies significant head trauma or loss of consciousness with this fall. He also admits to nausea but denies fever, abdominal pain, chest pain, vomiting, diarrhea or constipation. He states his chronic cough since May of this year has been productive of yellowish sputum and has not been changed. He states that he last saw his PCP approximately 1 year ago. He states he is still using tobacco but he has cut back significantly over the past few days due to worsening shortness of breath. In the ER his viral assay returned positive for influenza A complicated by CT evidence of pneumonia and clinical evidence of acute exacerbation of COPD with acute hypoxic respiratory insufficiency compounded by elevated troponin of 212 pg/mL present on admission consistent with suspected non-STEMI type II causing generalized weakness with ambulatory dysfunction and frequent falls and he was then admitted to the PCU for ongoing care for stay that is expected to be greater than 48 hours. [facility] Medical History Hypertension Weakness of left upper extremity Home Medications NK 08/07/23 [History Last Taken Unknown] Allergy/AdvReac Type Severity Reaction Status Date / Time No Known Allergies Allergy Verified 08/07/23 18:57 Social History household members: none housing: other current occupational status: employed Smoking Status: Current every day smoker tobacco type: cigarettes ROS ROS Narrative Review of systems: General: Patient admits to generalized weakness with multiple falls but denies fever or chills. HENT: Denies headache, denies stuffy nose, denies sore throat EYES: Denies changes in vision or discharge from eyes. Resp: Patient admits to cough and shortness of breath made worse with activity. Cardiac: Denies chest pain or palpitations. GI: Denies abdominal pain, denies changes in bowel, had some nausea : Denies changes in urination Extremity: Denies swelling Musculoskeletal: Feels somewhat generally weak and unwell with myalgias but he denies arthralgias. Neuro: Denies any numbness/tingling Heme: Denies any bleeding or bruising Skin: Denies rashes Psychiatric: No complaints voiced related to uncontrolled depression or anxiety. Endocrine: No polyuria, polydipsia or polyphagia. The rest of the 14 point ROS was negative except for positives in HPI. Vital Signs Vital Signs Vital Signs: 08/07/23 18:52 08/07/23 19:23 08/07/23 19:26 Temperature 97.6 F L Temperature Source Temporal Pulse Rate 40 L 81 Respiratory Rate 14 26 H Respiratory Effort Respiratory Depth Respiratory Pattern Blood Pressure 97/65 96/52 L Blood Pressure Mean 75 66 Pulse Ox 95 87 97 Oxygen Delivery Method Room Air Room Air Nasal Cannula Oxygen Flow Rate (L/min) 2 08/07/23 19:46 08/07/23 20:04 08/07/23 20:04 Temperature Temperature Source Pulse Rate 88 Respiratory Rate 26 H Respiratory Effort Respiratory Depth Respiratory Pattern Tachypnea Blood Pressure Blood Pressure Mean Pulse Ox 93 Oxygen Delivery Method Nasal Cannula Nasal Cannula Oxygen Flow Rate (L/min) 2 2 08/07/23 21:12 08/07/23 20:00 Temperature Temperature Source Pulse Rate 78 Respiratory Rate 20 H Respiratory Effort Accessory Muscle Use Respiratory Depth Normal Respiratory Pattern Tachypnea Blood Pressure 102/70 Blood Pressure Mean 80 Pulse Ox 97 Oxygen Delivery Method Nasal Cannula Oxygen Flow Rate (L/min) 2 Weight Weight: 164 lb 12.8 oz Body Mass Index (BMI) 21.1 Physical Exam Const alert and oriented x3 Constitutional Narrative: Patient is cachectic in appearance. General Appearance: cooperative HEENT normocephalic, head/scalp atraumatic and hearing grossly normal bilaterally HEENT Narrative: Mucous membranes dry Eyes PERRL and EOMs intact bilaterally Neck no lymphadenopathy and supple Resp Resp Narrative: Diminished breath sounds throughout with scattered expiratory wheezing and rhonchi. Auscultation: rhonchi and wheezes Cardio regular rate and regular rhythm Cardio Narrative: Tachycardia noted. GI normal to inspection, nondistended, normoactive bowel sounds, soft to palpation, non-tender and non-distended Extremity normal to inspection, full ROM and no clubbing, cyanosis or edema Skin Skin Narrative: Patient has no evidence of rash but he does have obvious supratemporal wasting. Neuro oriented x3, CN's II-XII intact bilaterally, moves all extremities and no focal motor deficits Sensorium / Orientation: awake, alert, oriented to person, oriented to place and oriented to time Speech: speech normal Motor Exam: strength 5/5 throughout Psych affect normal Results Medical Records Data Attestation: I reviewed the patient's medical records Lab / Micro Data Attestation: I reviewed the patient's lab results. 08/07/23 19:05 08/07/23 19:05 Labs: Laboratory Results - last 24 hr 08/07/23 19:05: WBC 14.0 H, RBC 4.24 L, Hgb 14.6, Hct 42.8, MCV 100.9 H, MCH 34.4 H, MCHC 34.1, RDW Std Deviation 62.4 H, RDW Coeff of Tony 16.7 H, Plt Count 305, MPV 9.6, Immature Gran % (Auto) 1.200 H, Neut % (Auto) 89.2 H, Lymph % (Auto) 4.8 L, [place] % (Auto) 4.0, Eos % (Auto) 0.0, Baso % (Auto) 0.8, Absolute Neuts (auto) 12.5 H, Absolute Lymphs (auto) 0.67 L, Nucleated RBC % 0, Sodium 134 L, Potassium 3.5, Chloride 96 L, Carbon Dioxide 32.0, Anion Gap 6, BUN 26 H, Creatinine 0.97, Estim Creat Clear Calc 87.68, Est GFR (MDRD) Af Amer 99, Est GFR (MDRD) Non-Af 82, BUN/Creatinine Ratio 26.7 H, Glucose 128 H, Calcium 8.3 L, Troponin I High Sens 212 H*, B-Natriuretic Peptide 89.4, TSH 2.72 Micro: Microbiology 08/07/23 20:00 Mucosa - Nose SARS-CoV-2, Influenza & RSV (PCR) - Final Influenzae A Imaging Radiology Impression Brain CT 08/07/23 19:23 IMPRESSION: Normal unenhanced CT scan of the brain. Electronically Signed: Oliver Macias MD at 20:29 EDT , Humerus X-Ray 08/07/23 19:40 IMPRESSION: Normal x-ray examination of the humerus. Electronically Signed: Oliver Macias MD at 20:05 EDT , Ribs w/Chest X-Ray 08/07/23 19:40 IMPRESSION: RIBS: Normal x-ray examination of the ribs. CHEST: COPD with hazy diffuse increased density of the right lung. CT scan recommended for better evaluation. Electronically Signed: Oliver Macias MD at 20:08 EDT , [facility] Imaging Services [address] [place] [id number] CTA Chest W/WO Contrast MR#: [id number] Acct: [id number] Name: CAITIE JIN Rep #: [id number] : 1960 M 63 From: Oliver Macias MD PCP: SILVIO Mejias Status: [facility] ER Study: CTA Chest W/WO Contrast Date of Exam: 08/07/23 Exam# [id number] Ordering Dr: Zuleyka Cullen DO EXAM: CT ANGIOGRAPHY CHEST WITHOUT AND WITH INTRAVENOUS CONTRAST CLINICAL INDICATION: sob, abnormal cxr, high risk PE TECHNIQUE: Helically acquired angiography images were obtained of the chest without and with intravenous contrast. This CT exam was performed using one or more of the following dose reduction techniques: automated exposure control, adjustment of the mA and/or kV according to patient size, and/or use of iterative reconstruction technique. MIP reconstructed images were created and reviewed. CONTRAST: IV 75mL Isovue-370 RADIATION DOSE: CTDIvol = 10.17 mGy, DLP = 453.97 mGy-cm COMPARISON: Chest x-ray of the same day FINDINGS: LIMITATIONS: Exam is limited by improper positioning of patient''s arms resulting in significant streak artifact. PULMONARY ARTERIES: Unremarkable. Normal in caliber. No evidence of pulmonary embolism. AORTA: Unremarkable. Normal in caliber. No evidence of dissection. GREAT VESSELS OF AORTIC ARCH: Unremarkable. Normal in caliber. No evidence of dissection. LUNGS AND PLEURAL SPACES: Marked hyperexpansion of lungs and evidence of severe COPD with interstitial thickening and diffuse bronchiectasis. Widespread bilateral patchy ill-defined irregular nodular pulmonary opacities most consistent with inflammatory disease, most pronounced on the right but also seen in the left lung, especially the left lower lobe. Findings also could represent widespread neoplastic disease but this is less likely. No pneumothorax. No gross effusions. HEART: Unremarkable. Heart size is normal. No pericardial effusion. No significant coronary artery calcifications. MEDIASTINUM: Probable right hilar and subcarinal adenopathy or neoplastic mass. Esophagus is unremarkable. No hiatal hernia. THYROID: Unremarkable. No thyroid lesions. BONES/JOINTS: Degenerative changes throughout the spine. CT/CTA Chest W/WO Contrast IMPRESSION: 1. No evidence for pulmonary embolism. 2. Severe COPD with interstitial fibrosis and bronchiectasis. 3. Widespread bilateral probable diffuse inflammatory disease worse on the right. However, neoplastic disease is not excluded and there may be adenopathy or neoplasm in and around the right hilum. Bronchoscopy is suggested. Electronically Signed: Oliver Macias MD at 22:09 EDT , CC: Dr. Zuleyka Cullen DO; SILVIO Mejias ~ [employer] Program Officer: Signed Assessment & Plan Assessment/Plan (1) Influenza A: (2) COPD exacerbation: (3) Respiratory insufficiency: (4) Non-STEMI (non-ST elevated myocardial infarction): (5) Generalized weakness: PLAN: Plan 1. Acute influenza A confirmed on positive viral assay this admission with leukocytosis of 14 present on admission - Admit to PCU under droplet and contact precautions. Start Tamiflu 75 mg p.o. twice daily. Give Tylenol as needed for pain or fever. Finally, we will give supplemental vitamin D3, vitamin C and zinc to help boost immunity and speed recovery. 2. Acute exacerbation of COPD in the setting of chronic tobacco abuse with CT chest this admission suspicious for underlying malignancy complicating #1 - Continue IV antibiotics, IV steroids, scheduled and as needed nebulizers plus supplemental oxygen. Tobacco cessation will be strongly encouraged with nicotine patch offered to control cravings. Finally, we will consult the library monitor on-call see this patient on rounds in the a.m. for further recommendations regarding possible bronchoscopy this admission with help appreciated in advance. 3. Elevated troponin of 212 pg/mL present on admission consistent with suspected non-STEMI type II arising from #1 & #2 - Start ECASA, Plavix, statin and full-dose Lovenox. Serialize troponin. Check echocardiogram to evaluate left ventricular ejection fraction. Finally, I will defer decision [facility] as per administration's instructions. 4. Acute hypoxic respiratory insufficiency arising from #1 - #3 - Wean supplemental oxygen as tolerated. 5. Generalized weakness with ambulatory dysfunction and frequent falls due to #1 - #4 - PT/OT and case management consult and treat on rounds in the a.m. for further recommendations with help appreciated in advance. 6. Essential hypertension - Start low-dose Metoprolol for #3. 7. History of avoiding medical attention - Noted. Patient was encouraged to make and keep regular appointments with his physicians in an effort to optimize his health. 8. DVT prophylaxis - Patient on full dose Lovenox for #3. Total time: Approximately 55 minutes. Charges/Coding Visit Charges Inpatient E&M: 62675 Init Hosp L2
--- NOTE | 2023-08-07 22:16 | ED.VIS.DYS ---
HPI History of Present Illness Chief Complaint: Shortness of Breath Informant: patient Narrative Narrative: Patient is a 63-year-old male with history of tobacco use and ongoing issues with shortness of breath presenting for worsening shortness of breath and generalized weakness. Patient states he had worsening symptoms for the past 10 days. He notes that he has been having falls as well because he has had no strength. States he has no strength in his legs. He thinks he might of hit his head but not severely. Is not any blood thinners. Is complaining of some left collarbone pain and feels like he bruised his left ribs. Has had some associated nausea but no vomiting or diarrhea. Denies any chest abdominal pain or chest pain. Denies any known fever. Has had a cough since May that has been productive and denies any acute change in his cough. He last saw his primary care doctor about a year ago. Is a tobacco user but has been cutting back significantly over the past few days. Of note patient is been seen in the ER couple times over the past few months and has been noted to have hypoxia but previously has refused admission. Patient denies any swelling of his legs. Is coming from home. [facility] Medical History Hypertension Weakness of left upper extremity Home Medications prednisone 20 mg tablet 20 mg PO BID #10 tabs 06/26/23 [Rx Last Taken Unknown] Allergy/AdvReac Type Severity Reaction Status Date / Time No Known Allergies Allergy Verified 08/07/23 18:57 Social History household members: none housing: other current occupational status: employed Smoking Status: Current every day smoker tobacco type: cigarettes ROS ROS ED Constitutional Constitutional ED: Reports other Details: Generalized weakness, multiple falls ; Denies chills or fever(s) ENT ENT ED: Denies rhinorrhea or sore throat Cardiovascular Cardiovascular: Denies chest pain Respiratory/Chest Respiratory/Chest: Reports cough, dyspnea, dyspnea on exertion and sputum Gastrointestinal Gastrointestinal: Reports nausea; Denies abdominal pain, diarrhea or vomiting Genitourinary Genitourinary ED: Denies dysuria or urinary frequency Musculoskeletal Musculoskeletal: Reports myalgias; Denies back pain or neck pain Integumentary Denies rash Neurologic Neurologic: Denies headache(s) or paresthesias Psychiatric Psychiatric: Denies anxiety Hematologic/Lymphatic Hematologic/Lymphatic: Denies easy bleeding or easy bruising EXAM Physical Exam Const Vital Signs: 08/07/23 18:52 08/07/23 19:23 08/07/23 19:26 Temperature 97.6 F L Temperature Source Temporal Pulse Rate 40 L 81 Respiratory Rate 14 26 H Respiratory Effort Respiratory Depth Respiratory Pattern Blood Pressure 97/65 96/52 L Blood Pressure Mean 75 66 Pulse Ox 95 87 97 Oxygen Delivery Method Room Air Room Air Nasal Cannula Oxygen Flow Rate (L/min) 2 08/07/23 19:46 08/07/23 20:04 08/07/23 20:04 Temperature Temperature Source Pulse Rate 88 Respiratory Rate 26 H Respiratory Effort Respiratory Depth Respiratory Pattern Tachypnea Blood Pressure Blood Pressure Mean Pulse Ox 93 Oxygen Delivery Method Nasal Cannula Nasal Cannula Oxygen Flow Rate (L/min) 2 2 08/07/23 21:12 08/07/23 20:00 08/07/23 21:59 Temperature Temperature Source Pulse Rate 78 104 H Respiratory Rate 20 H 31 H Respiratory Effort Accessory Muscle Use Respiratory Depth Normal Respiratory Pattern Tachypnea Blood Pressure 102/70 140/89 H Blood Pressure Mean 80 106 Pulse Ox 97 94 Oxygen Delivery Method Nasal Cannula Nasal Cannula Oxygen Flow Rate (L/min) 2 2 Positive well developed and cachectic General Appearance ED: well developed, cachectic and NAD; Negative for pallor Nutritional Appearance: cachectic HEENT Reports TM's clear and dry mucous membranes atraumatic Tympanic Membrane ED: Yes TM's clear Mouth ED: Yes dry mucous membranes Mouth: dry mucous membranes Eyes PERRL and EOMs intact bilaterally Neck supple and no JVD Chest Wall Chest Narrative: No flail chest. No reproducible tenderness to palpation however patient points to his left lower mid axillary line as his area of pain Resp Resp Narrative: Tachypneic, diminished breath sounds at the bases with some crackles. Scattered wheezing present. Cardio regular rhythm and no murmurs Rate: tachycardic GI non-tender and non-distended Auscultation: normoactive bowel sounds Palpation: soft Extremity normal to inspection Extremity Narrative: No obvious deformity specifically of the clavicles, upper extremities and lower extremities. Pelvis is stable. Some mild tenderness of the left mid humerus but is diffuse. Normal range of motion of the shoulder and elbows. General Extremety ED: Yes tenderness; Negative for edema General Extremity: Negative for edema Neuro oriented x3 Sensorium / Orientation: alert Speech: speech normal Motor Exam: general weakness Psych mental status grossly normal Skin Skin Narrative: Healing abrasions to the left elbow General Skin Exam: Negative for jaundice or pallor MDM MDM MDM Narrative Medical decision making narrative: Patient arrives to the hospital for increased shortness of breath. Patient initially was bradycardic however I wonder if it was poor capture because his EKG shows borderline high heart rate and he is otherwise tachycardic in the emergency room. Cardiopulmonary workup is performed. Patient is 88% on room air and clean of shortness of breath. He has a leukocytosis of 14.0 with a left shift and his CMP is largely normal. BNP is normal. He does have an elevation of his high since he troponin of 212. He does not have acute ischemic EKG changes is not complain of chest pain so wonder if this is more of a type II NSTEMI associated with strain from his hypoxia and respiratory presentation. Chest x-ray with rib series reviewed by myself as well as radiology does not show any acute fracture but is concerning for infiltrate of the right lung. CT of the chest is ordered to further evaluate for the lung parenchyma as well as rule out PE. CT does not show any PE but does show severe COPD with interstitial fibrosis and bronchiectasis as well as diffuse inflammatory disease however cannot rule out neoplasm. In addition CT of the brain is obtained which does not show any acute process. X-ray of the left humerus does not show any acute fracture on my review as well as radiology. Patient is positive for influenza A. He has had symptoms for at least 10 days was not a candidate for Tamiflu at this time however given his leukocytosis and CT findings will cover for secondary pneumonia with Rocephin and azithromycin. Is also given Solu-Medrol as I suspect patient is undiagnosed COPD. Given his new O2 requirements, weakness and falls will be admitted for further medical management. Patient is agreeable this plan of care. Is given aspirin for elevated troponin. Is admitted to PCU after discussion with Dr. Atkinson. The patient's leukocytosis, tachycardia and tachypnea will check a lactate as well for possible sepsis. Lab Data Attestation: I reviewed the patient's lab results. Labs: Laboratory Results - last 24 hr 08/07/23 19:05 WBC 14.0 H RBC 4.24 L Hgb 14.6 Hct 42.8 MCV 100.9 H MCH 34.4 H MCHC 34.1 RDW Std Deviation 62.4 H RDW Coeff of Tony 16.7 H Plt Count 305 MPV 9.6 Immature Gran % (Auto) 1.200 H Neut % (Auto) 89.2 H Lymph % (Auto) 4.8 L Amador % (Auto) 4.0 Eos % (Auto) 0.0 Baso % (Auto) 0.8 Absolute Neuts (auto) 12.5 H Absolute Lymphs (auto) 0.67 L Nucleated RBC % 0 Sodium 134 L Potassium 3.5 Chloride 96 L Carbon Dioxide 32.0 Anion Gap 6 BUN 26 H Creatinine 0.97 Estim Creat Clear Calc 87.68 Est GFR (MDRD) Af Amer 99 Est GFR (MDRD) Non-Af 82 BUN/Creatinine Ratio 26.7 H Glucose 128 H Calcium 8.3 L Troponin I High Sens 212 H* B-Natriuretic Peptide 89.4 TSH 2.72 Radiography Diagnostic Testing: Clinical Impression(s) from Imaging Studies Brain CT 08/07/23 19:23 IMPRESSION: Normal unenhanced CT scan of the brain. Electronically Signed: Oliver Macias MD at 20:29 EDT Reading Location ID and State: [facility] / [place] , Service support , Humerus X-Ray 08/07/23 19:40 IMPRESSION: Normal x-ray examination of the humerus. Electronically Signed: Oliver Macias MD at 20:05 EDT Reading Location ID and State: [facility] / [place] , Service support , Ribs w/Chest X-Ray 08/07/23 19:40 IMPRESSION: RIBS: Normal x-ray examination of the ribs. CHEST: COPD with hazy diffuse increased density of the right lung. CT scan recommended for better evaluation. Electronically Signed: Oliver Macias MD at 20:08 EDT Reading Location ID and State: [facility] / [place] , Service support , Chest CTA 08/07/23 21:22 IMPRESSION: 1. No evidence for pulmonary embolism. 2. Severe COPD with interstitial fibrosis and bronchiectasis. 3. Widespread bilateral probable diffuse inflammatory disease worse on the right. However, neoplastic disease is not excluded and there may be adenopathy or neoplasm in and around the right hilum. Bronchoscopy is suggested. Electronically Signed: Oliver Macias MD at 22:09 EDT , Rhythm Strip Rhythm Strip: Sinus Rhythm Rate: 92 Ectopy: None EKG Initial EKG: Attestation: I personally reviewed and interpreted this EKG as follows: Interpretation: Sinus Rhythm Comments: Normal sinus rhythm rate of 92 beats per minutes with PACs with aberrant conduction Normal axis Normal intervals Normal ST segments Slightly prolonged QTc of 484 Compared to prior EKG on 06/26/2023 patient is some slight amplitude changes with no other acute abnormalities Management Discussion w/another healthcare provider: Hospitalist Discharge Plan Triage Chief Complaint: Shortness of Breath ED Provider: Zuleyka Cullen Dx/Rx/DC Orders Clinical Impression: Influenza A, Contusion of rib on left side, Asthma exacerbation in COPD, Weakness, Hypoxia, Falls, Contusion of elbow, left Primary Care Provider: Cha Powell
[2023-08-07] MEDS: Ceftriaxone 1 GM/50 ML BAG IV (22:26)
[2023-08-07] MEDS: Aspirin 325 MG Tablet PO (22:27)
[2023-08-07] MEDS: MethylPREDNISolone 125 MG/2 ML Vial IV (22:27)
[2023-08-07] MEDS: Azithromycin 500 MG in Dextrose 5%-Water (250mL Bag) 250 ML 250 MG IV (23:16)
[2023-08-07 23:28] LABS: Lactic Acid 0.9 mmol/L (0.4-1.9)
[2023-08-08] VITALS (7 sets, daily range): BP systolic 135–157; BP diastolic 90–102; PULSE 74–89; RESP 17–18; TEMP 36.3–36.6; O2SAT 90–95; BMI 16.5
[2023-08-08 00:25] LABS: Troponin-I HS 222 pg/mL (3.0-78.0)
[2023-08-08] MEDS: 0.9% Normal Saline (1000mL) 1,000 ML 70 ML IV (00:45)
[2023-08-08] MEDS: Enoxaparin 80 MG/0.8 ML Syringe 75 MG SC ×2 (00:45→11:45)
[2023-08-08] MEDS: Oseltamivir Phosphate 75 MG Capsule PO ×3 (00:45→20:29)
[2023-08-08] MEDS: 0.9% Saline Lock 10 ML Syringe IV ×2 (00:45→16:51)
[2023-08-08] MEDS: Atorvastatin Calcium 80 MG Tablet PO ×2 (00:45→20:29)
[2023-08-08] MEDS: Famotidine 200 MG/20 ML MDV 20 MG in 0.9% Normal Saline (Pres. free 8 ML 300 MG IV ×3 (00:45→20:45)
[2023-08-08 04:19] LABS: Absolute Lymphocyte Count 0.36 X10^3/uL (0.83-4.51); Absolute Neutrophil Count 9.1 X10^3/uL (2.0-7.7); Basophil# 0.03 X10^3/uL; Basophil% 0.3 % (0-1); Hematocrit 44.8 % (40-54); Hemoglobin 15.5 g/dL (13.0-16.5); Lymphocyte # 0.36 X10^3/ul (0.83-4.51); Lymphocyte % 3.7 % (19-41); Mean Corp Hgb Conc 34.6 g/dL (32-36); Mean Corpuscular Hgb 35.2 pg (27.0-32.0); Mean Corpuscular Volume 101.8 fL (80-94); Mean Platelet Vol. 9.6 fl (6.2-12.0); Monocyte# 0.12 X10^3/uL; Monocyte% 1.2 % (0-10); NRBC Flagged by Analyzer 0 % (0-5); Neutrophil # 9.07 X10^3/uL (2.7-7.7); Neutrophil % 93.7 % (47-70); POSITIVE DIFFERENTIAL YES; Platelet Count 302 K/mm3 (150-450); RBC Distribution Width CV 16.9 % (11.6-14.6); RBC Distribution Width SD 63.6 fl (35.1-43.9); White Blood Count 9.7 K/mm3 (4.4-11.0)
[2023-08-08 04:44] LABS: Troponin-I HS 214 pg/mL (3.0-78.0)
--- NOTE | 2023-08-08 04:45 | NURSING ---
pts primary rn aware of troponin of 214 at this time.
[2023-08-08 04:57] LABS: ALB/GLOB Ratio 0.6 RATIO (0.9-2.4); AST(SGOT) 58 U/L (15-37); Alanine Aminotransfer ALT/SGPT 29 U/L (16-61); Albumin, Serum 2.2 g/dL (3.2-5.0); Alkaline Phosphatase 179 U/L (45-117); Anion Gap 9 (5-15); BUN 23 mg/dL (7-18); Chloride 98 mmol/L (98-107); Creatinine, Serum 0.82 mg/dL (0.70-1.30); EST Glomerular Filtration Rate 100 mL/min (>60); Est Glom Filt Rate - Afr Amer 121 mL/min (>60); Estimated Creatinine Clearance 73.93 ml/min; Globulin 3.9 g/dL (2.2-4.2); Glucose 124 mg/dL (74-106); Magnesium 1.6 mg/dL (1.6-2.6); Phosphorus 2.4 mg/dL (2.5-4.9); Potassium 3.2 mmol/L (3.5-5.1); Protein, Total 6.1 g/dL (6.4-8.2); Sodium Level 135 mmol/L (136-145); Thyroid Stim Hormone (TSH) 0.88 uIU/mL (0.358-3.74)
[2023-08-08] MEDS: Ascorbic Acid 500 MG Tablet 1000 MG PO (07:47)
[2023-08-08] MEDS: Potassium Chloride Oral Tablet 20 MEQ 60 MEQ PO (07:47)
[2023-08-08] MEDS: Aspirin 81 MG TAB.CHEW PO (07:47)
--- NOTE | 2023-08-08 09:45 | ECHOD_ITS ---
Reason For Study: CAD/ASHD Procedure This was a 2D Doppler, Color Flow transthoracic echocardiogram. Exam performed portable in patient room. Left Ventricle Normal LV size. Left ventricular systolic function is normal. The estimated ejection fraction is 55 %. No regional wall motion abnormalities noted. Right Ventricle Normal RV size. Normal systolic function. Atria Normal left atrium. Mitral Valve Normal mitral valve. Tricuspid Valve Normal tricuspid valve. Pulmonic Valve The pulmonic valve is not well visualized. Great Vessels Normal aortic root. The pulmonary artery is normal size. Normal inferior vena cava. Pericardium/Pleural No pericardial effusion. MMode/2D Measurements & Calculations LVIDd: 4.5 cm IVSd: 0.73 cm LVIDs: 3.5 cm LVPWd: 1.1 cm FS: 23.1 % Time Measurements MV dec time: 0.27 sec Doppler Measurements & Calculations MV E max perry: 62.5 cm/sec Lat Peak E' Perry: 9.8 cm/sec Med Peak E' Perry: 7.2 cm/sec MV A max perry: 60.6 cm/sec E/E' lat: 6.4 E/E' med: 8.7 MV E/A: 1.0 MV V2 max: 73.5 cm/sec MV dec slope: 230.5 cm/sec2 Ao V2 max: 91.7 cm/sec MV max P.2 mmHg Ao max P.4 mmHg MV V2 mean: 47.4 cm/sec Ao V2 mean: 65.5 cm/sec MV mean P.00 mmHg Ao mean P.9 mmHg MV V2 VTI: 25.3 cm Ao V2 VTI: 17.5 cm AV (velocity ratio): 1.0 LV V1 max: 87.6 cm/sec PA V2 max: 78.4 cm/sec LV V1 max P.1 mmHg PA V2 mean: 64.0 cm/sec LV V1 mean P.6 mmHg LV V1 mean: 59.6 cm/sec LV V1 VTI: 17.9 cm ECHO/Echo Complete Interpretation Summary Normal LV size. Left ventricular systolic function is normal. The estimated ejection fraction is 55 %. The study was technically difficult. Ordering Physician: Nicol Horton Referring Physician: INGRID KRAUS Performed By: Yuliana Astorga RCS
--- NOTE | 2023-08-08 10:05 | CASEMGMT ---
A friend of patients came to [facility] and asked to talk with LONI. LONI met with patient's friend, Salinas Salazar [phone]. Salinas said patient's home is in horrible condition. Patient has gone down hill ever since his mom . Salinas said patient has no family in [place]. LONI asked if patient is or has kids. Salinas thinks patient was a long time ago and never had any children. Patient has no siblings and parents are both . Patient has a court hearing SatAugust 13 at 13:45. Salinas did not say what this is regarding. Salinas said patient is also an alcoholic, but he would never admit to this. Salinas is hoping patient will be honest with hospital staff and accept help. LONI told Salinas LONI and RN CM will follow along and assist with d/c planning. LONI did notify RN that per patient's friend patient is an alcoholic. Estelita Ferrari CHILDREN'S AUTHOR INO
[2023-08-08] MEDS: MethylPREDNISolone 125 MG/2 ML Vial 60 MG IV ×2 (10:10→20:45)
[2023-08-08 10:22] LABS: Cholesterol 70 mg/dL (200); High Density Lipoprotein 36 mg/dL; Triglycerides 60 mg/dL; Very Low Density Lipoprotein 12 mg/dL (5-40)
[2023-08-08] MEDS: Cholecalciferol (Vit D3) 125 MCG CAPSULE (5,000 UNITS) PO (10:31)
[2023-08-08] MEDS: Zinc Sulfate 50 mg zinc (220 mg) ORAL capsule PO (10:31)
[2023-08-08] MEDS: Sodium Phosphate/Na Biphos 21 MMOL in 0.9% Normal Saline (250mL Bag) 250 ML 84 MMOL IV (11:43)
[2023-08-08] MEDS: Clopidogrel Bisulfate 75 MG Tablet PO (11:46)
--- NOTE | 2023-08-08 12:55 | CASEMGMT ---
Addendum entered by Shobha Hong 08/08/23 16:57: Per PT pt was SBA and no additional therapy recommended. Original Note: RN?CM?PAR[employer]LE BOARD MEMBER?CM?to room to meet with patient for initial transition planning/care coordination?assessment.?RN?CM?introduced self and role at [facility].? Pt voices understanding and consents to?assessment?at this time.? Pt resting in bed in no distress at this time.? Pt is A/O at this time and answers all questions appropriately.?? Care providers, pharmacy, and demographics verified/updated at this time. PCP: SILVIO Camp Specialists: none Preferred Pharmacy: [facility] Insurance: [employer] [facility] Prescription Benefit:?yes Living Will/HPOA:? Pt does not currently have LW/HCPOA and would like to complete. He states he would like to name his friend, Salinas Salazar, as his HCPOA. LONI Capone, made aware. LNOK: Pt states he has no living family, stating his parents are , that he did not have any children, and he was an only child. He states he may have distant relatives out of state that he has never met before, but he does not know. Living Arrangements: Lives alone in one-story home w/6 steps to enter. He states does okay with the stairs. He states he is independent w/ADL's but has difficulty managing his home, stating It's a mess and It's a pig-pen and states he tries to take care of things but then he gets too worn out. He also states his dryer stopped working. He states he would like some assistance in the home w/home mgnt tasks, if available. Estelita IVEY, made aware. Transportation:?Pt states drives self and states no transportation concerns at this time.? DME: ?States has the following DME:?a pulse ox only. does not have home O2. Pt states no preference of DME co if Home O2 is needed and states okay to use [employer]. ?Pt states no need for further DME at this time.? HHC/SNF: No hx of either. ETOH: Pt states he drinks a couple beers a day, but I've been cutting back. He declines wanting any resources to stop drinking. Pt wishes to return home and states has no concerns with going home at time of discharge.? CM?to follow for home oxygen needs and any further discharge planning/needs.? Pt voices no further concerns/needs at this time.? Advised pt to ask for?CM?if any further questions/concerns/needs arise.? Voices understanding. PLAN:??Home. Follow for possible need of Home O2. Michelle BSN?RN?CM
--- NOTE | 2023-08-08 15:56 | PCM.PN.HOSP ---
Reason for Visit Reason for Visit: Shortness of breath Subjective Subjective Mr. Zuniga is a 63-year-old white male with a history of tobacco abuse who presented to the emergency department on 08/07/2023 with shortness of breath. He also complained of ongoing generalized weakness that have been ongoing for 10 days now. He indicated he had been having falls and just had no strength overall. He states his legs feel very weak when he tries to walk. He did have some associated nausea but no vomiting or diarrhea. He denied any chest pain, abdominal pain, dysuria, constipation or focal deficits. He indicates he has had a cough since May that has been productive but denied any acute change in his cough. He last saw primary care physician about a year ago. He states he has been trying to cut back on smoking over the last several days and admits to drinking 2 beers a day. We did receive further information from a friend who states he drinks 2 beers a day and about 5 shots of hard liquor. The patient denies ever having any withdrawal symptoms but was unclear on the last time he went without alcohol. He had a few visits to the ER over the last month and was noted to be hypoxic at that time but refused admission. Vital signs on presentation showed a temperature of 97.6, heart rate 81, initial blood pressure was 97/65, respiratory rate was 14 and oxygen saturations were 87% on room air. His saturation improved to 97% when placed on 2 L nasal cannula. His CBC showed a leukocytosis with a white count of 14.0 and a left shift with an 89.2% neutrophilia. His chemistry panel showed mild hyponatremia with a sodium of 134, renal function was normal lactate was 0.9, glucose was 128 and his initial troponin was 212. His troponins were cycled and were as [id number]. His BNP was normal. TSH was 2.72. His rapid flu was positive for flu A. Humerus x-ray was negative for any fracture. Ribs and chest x-ray showed normal x-ray of the ribs with COPD and diffuse haziness in the right lung. CTA of the chest showed no evidence of PE, severe COPD with interstitial fibrosis and bronchiectasis and widespread bilateral probable inflammatory disease with adenopathy in the hilum. Patient states he feels a little bit better than yesterday but still feels weak and ill. Objective Data Objective Data Vital Signs: Vital Signs Temp Pulse Resp BP Pulse Ox O2 Del Method O2 Flow Rate 97.9 F 82 17 157/97 H 94 Nasal Cannula 2 08/08/23 15:04 08/08/23 15:04 08/08/23 15:04 08/08/23 15:04 08/08/23 15:04 08/08/23 15:11 08/08/23 15:11 Oxygen Flow Rate (L/min) 2 Oxygen Delivery Method Nasal Cannula Weight: 58.2 kg Body Mass Index (BMI) 16.5 Intake & Output: Intake and Output for Last 24 Hours 08/06/23 08/07/23 08/08/23 23:59 23:59 23:59 Intake Total 50 / 50 2400.83 / 2400.83 Output Total 400 / 400 Balance 50 / 50 1999.83 / 1999. Medical Nutrition Assessment Dietitian: Malnutrition Criteria Met Start: 08/08/23 11:33 Freq: Status: Active Protocol: Document 08/08/23 11:33 (Rec: 08/08/23 11:33 [id number]) Nutrition Malnutrition Evidence of Malnutrition Exists Yes Malnutrition (severe): Chronic Evidenced By Suboptimal Energy Intake ( Severe),Weight Loss (Severe) Clinical Problem Chronic Disease or Condition Related Malnutrition Etiology severe realted to suboptimal appetite Signs/Symptoms as evidenced by estimated PO intakes <75% of needs for >1 month and 50.1lbs (28%) weight loss in 5 months Status Active Problem Recommendation Dietitian Recommendations/Changes Changed diet to Regular - ROSALEE to optimize oral intakes. Recommend 118mL Ensure Compact 4x daily with medpass to provide supplemental energy and to promote weight maintenance/gain. Recommend appetite stimulant to improve appetite and PO intakes. Lab / Micro Data 08/08/23 03:57 08/08/23 03:57 Labs: Laboratory Results - last 24 hr 08/07/23 19:05: WBC 14.0 H, RBC 4.24 L, Hgb 14.6, Hct 42.8, MCV 100.9 H, MCH 34.4 H, MCHC 34.1, RDW Std Deviation 62.4 H, RDW Coeff of Tony 16.7 H, Plt Count 305, MPV 9.6, Immature Gran % (Auto) 1.200 H, Neut % (Auto) 89.2 H, Lymph % (Auto) 4.8 L, [place] % (Auto) 4.0, Eos % (Auto) 0.0, Baso % (Auto) 0.8, Absolute Neuts (auto) 12.5 H, Absolute Lymphs (auto) 0.67 L, Nucleated RBC % 0, Sodium 134 L, Potassium 3.5, Chloride 96 L, Carbon Dioxide 32.0, Anion Gap 6, BUN 26 H, Creatinine 0.97, Estim Creat Clear Calc 87.68, Est GFR (MDRD) Af Amer 99, Est GFR (MDRD) Non-Af 82, BUN/Creatinine Ratio 26.7 H, Glucose 128 H, Calcium 8.3 L, Troponin I High Sens 212 H*, B-Natriuretic Peptide 89.4, TSH 2.72 08/07/23 22:55: Lactic Acid 0.9 08/07/23 23:51: Troponin I High Sens 222 H* 08/08/23 03:57: WBC 9.7, RBC 4.40 L, Hgb 15.5, Hct 44.8, MCV 101.8 H, MCH 35.2 H, MCHC 34.6, RDW Std Deviation 63.6 H, RDW Coeff of Tony 16.9 H, Plt Count 302, MPV 9.6, Immature Gran % (Auto) 1.100 H, Neut % (Auto) 93.7 H, Lymph % (Auto) 3.7 L, [place] % (Auto) 1.2, Eos % (Auto) 0.0, Baso % (Auto) 0.3, Absolute Neuts (auto) 9.1 H, Absolute Lymphs (auto) 0.36 L, Nucleated RBC % 0, Sodium 135 L, Potassium 3.2 L, Chloride 98, Carbon Dioxide 28.0, Anion Gap 9, BUN 23 H, Creatinine 0.82, Estim Creat Clear Calc 73.93, Est GFR (MDRD) Af Amer 121, Est GFR (MDRD) Non-Af 100, BUN/Creatinine Ratio 28.0 H, Glucose 124 H, Calcium 8.0 L, Phosphorus 2.4 L, Magnesium 1.6, Total Bilirubin 0.40, AST 58 H, ALT 29, Alkaline Phosphatase 179 H, Troponin I High Sens 214 H*, Total Protein 6.1 L, Albumin 2.2 L, Globulin 3.9, Albumin/Globulin Ratio 0.6 L, Triglycerides 60, Cholesterol 70, LDL Cholesterol 22, VLDL Cholesterol 12, HDL Cholesterol 36 L, TSH 0.88 Micro: Microbiology 08/07/23 20:00 Mucosa - Nose SARS-CoV-2, Influenza & RSV (PCR) - Final Influenzae A Radiography Diagnostic Testing: Radiology Impression Brain CT 08/07/23 19:23 IMPRESSION: Normal unenhanced CT scan of the brain. Electronically Signed: Oliver Macias MD at 20:29 EDT , Humerus X-Ray 08/07/23 19:40 IMPRESSION: Normal x-ray examination of the humerus. Electronically Signed: Oliver Macias MD at 20:05 EDT , Ribs w/Chest X-Ray 08/07/23 19:40 IMPRESSION: RIBS: Normal x-ray examination of the ribs. CHEST: COPD with hazy diffuse increased density of the right lung. CT scan recommended for better evaluation. Electronically Signed: Oliver Macias MD at 20:08 EDT , Chest CTA 08/07/23 21:22 IMPRESSION: 1. No evidence for pulmonary embolism. 2. Severe COPD with interstitial fibrosis and bronchiectasis. 3. Widespread bilateral probable diffuse inflammatory disease worse on the right. However, neoplastic disease is not excluded and there may be adenopathy or neoplasm in and around the right hilum. Bronchoscopy is suggested. Electronically Signed: Oliver Macias MD at 22:09 EDT , Rhythm Strip Rhythm Strip: Sinus Rhythm Rate: 92 Ectopy: None Physical Exam Const alert, oriented x3 and no apparent distress; Negative for average body habitus, healthy appearing or well nourished Constitutional Narrative: Cachectic, upper middle-aged, white male, lying in left side-lying, appears older than stated age, appears if he is not feeling well but not toxic, appears comfortable at this time, very thin HEENT head/scalp atraumatic and moist oral mucous membranes HEENT Narrative: Dentition is poor, Mallampati is 1, no thrush Head and Scalp: normocephalic Eyes PERRL, EOMs intact bilaterally and conjunctivae normal Eyes Narrative: No scleral icterus Neck no lymphadenopathy and supple Neck Narrative: Trachea midline, no thyroid enlargement Resp normal respiratory effort, no retractions, no use of accessory muscles and No clear to auscultation bilaterally Resp Narrative: Diffuse crackles with diffuse end expiratory wheezes, no rhonchi Auscultation: crackles and wheezes; Negative for rhonchi Cardio regular rate, regular rhythm, S1 normal heart sound, S2 normal heart sound, no murmurs, no rub, no gallops and no clicks GI normal to inspection, nondistended, normoactive bowel sounds, soft to palpation, non-tender and non-distended Extremity no clubbing, cyanosis or edema Extremity Narrative: Pedal pulses are 2+ at dorsalis pedis, radial pulses are 2+ Neuro oriented x3, moves all extremities and no focal motor deficits Neuro Narrative: Significant generalized weakness noted with decreased lean muscle mass Psych Psych Narrative: Affect is slightly flat however eye contact is good and mood appears to be stable he is pleasant upon interaction Assessment & Plan Assessment/Plan (1) Generalized weakness: (2) Elevated troponin: (3) Influenza A: (4) COPD exacerbation: (5) Falls: (6) Weakness: (7) Hypoxia: (8) Hypokalemia: (9) Hyperglycemia: (10) Severe malnutrition: PLAN: Plan Acute hypoxia secondary to influenza A with suspected COPD -Patient has had a few visits to the emergency department where he has been hypoxic previously so he may have a component of chronic hypoxic respiratory failure and need oxygen at discharge but will need to monitor -Continue as needed albuterol -Add scheduled DuoNebs -Check strep pneumo and Legionella antigens -Will continue with Zithromax and ceftriaxone for now but low threshold to discontinue as his CT does not show any infiltrate -Continue Solu-Medrol 60 twice daily -Continue I-S -Add Acapella -Continue Tamiflu day 1 of 5 -Add Mucinex 1200 mg p.o. twice daily -Will make referral to pulmonary medicine at discharge for repeat CT of the chest and follow-up for PFTs and official diagnosis of COPD Elevated troponin -Troponins elevated in the low 200 range but no significant upward trend -Suspect related to acute illness and hypoxia -Echocardiogram is pending -Stop therapeutic Lovenox -Continue aspirin -Check lipids -Continue atorvastatin -Will add carvedilol 6.25 twice daily as his blood pressure has been elevated -If echocardiogram does not show any wall motion abnormality will have patient follow-up as an outpatient with cardiology for stress test -If there is abnormality on echocardiogram will consult cardiology here Severe malnutrition -Dietitian following -Supplements added Hypokalemia -40 mEq PO -check am mag -recheck in am Hypophosphatemia -Phos replacement given -Recheck Phos level in a.m. Hyperglycemia -check A1c -may be stress response -monitor Hypertension -add Coreg 6.25 -As needed hydralazine Alcohol Abuse -CIWA with prn ativan -Thiamine 200 mg 3 times daily -Start folate -Start multivitamin -If starts to show signs of active withdrawal start phenobarbital taper -Patient states he was only drinking 2 beers a day however he has a friend that reports he was drinking 2 beers and about 5 shots -Patient denies ever having withdrawal symptoms Tobacco abuse -Recommend cessation -Continue nicotine replacement therapy DVT prophylaxis -Start Lovenox 40 subcu daily CODE STATUS -Full code as verified on admission Charges/Coding Visit Charges Inpatient E&M: 01333 Subs Hosp L3
[2023-08-08] MEDS: Thiamine Hydrochloride 100 MG Tablet 200 MG PO (16:53)
[2023-08-08 17:09] LABS: Hemoglobin A1c 5.4 % (3.8-5.6)
[2023-08-08] MEDS: Carvedilol 6.25 MG Tablet PO (17:58)
[2023-08-08] MEDS: hydrOXYzine 50 MG/ML Vial 100 MG IM (20:13)
[2023-08-08] MEDS: Ceftriaxone 1 GM/50 ML BAG IV (20:54)
--- NOTE | 2023-08-08 21:00 | NURSING ---
This RN notified by FOOD PROCESSING SCIENTIST that patient was stating he wanted to leave because he has not slept in the last three days. This RN went to patients room, patient expressed that he has not slept in 3 days, cannot sleep here, and needs to get out of here. Informed patient that he can have melatonin, pt refusing melatonin stating that it does not work. Refuses ativan as well. MD notified and IM vistaril orders placed. Patient willing to take. See Mar for med administration. Discussed with patient plan of care, gave pm medications early per patient request. Patient expressed thanks for care and appeared to be more settled. Vitals stable, bed exit on, call light within reach.
[2023-08-08] MEDS: Azithromycin 500 MG in Dextrose 5%-Water (250mL Bag) 250 ML 250 MG IV (21:52)
[2023-08-09] VITALS (13 sets, daily range): BP systolic 131–166; BP diastolic 86–104; PULSE 70–86; RESP 16–22; TEMP 36.1–36.6; O2SAT 86–98; BMI 16.1
[2023-08-09] MEDS: Temazepam 15 MG Capsule 30 MG PO (00:29)
[2023-08-09] MEDS: Ipratropium/Albuterol Sulfate 3 ML AMPUL.NEB INHALATION ×4 (07:04→19:30)
[2023-08-09 07:45] LABS: Absolute Lymphocyte Count 0.46 X10^3/uL (0.83-4.51); Absolute Neutrophil Count 15.7 X10^3/uL (2.0-7.7); Basophil# 0.04 X10^3/uL; Basophil% 0.2 % (0-1); Hematocrit 42.8 % (40-54); Hemoglobin 14.5 g/dL (13.0-16.5); Lymphocyte # 0.46 X10^3/ul (0.83-4.51); Lymphocyte % 2.7 % (19-41); Mean Corp Hgb Conc 33.9 g/dL (32-36); Mean Corpuscular Hgb 34.5 pg (27.0-32.0); Mean Corpuscular Volume 101.9 fL (80-94); Monocyte# 0.37 X10^3/uL; Monocyte% 2.2 % (0-10); NRBC Flagged by Analyzer 0 % (0-5); Neutrophil # 15.73 X10^3/uL (2.7-7.7); Neutrophil % 94.1 % (47-70); POSITIVE DIFFERENTIAL YES; Platelet Count 442 K/mm3 (150-450); RBC Distribution Width SD 64.3 fl (35.1-43.9); White Blood Count 16.7 K/mm3 (4.4-11.0)
[2023-08-09 08:25] LABS: ALB/GLOB Ratio 0.5 RATIO (0.9-2.4); AST(SGOT) 40 U/L (15-37); Alanine Aminotransfer ALT/SGPT 26 U/L (16-61); Albumin, Serum 2.1 g/dL (3.2-5.0); Alkaline Phosphatase 164 U/L (45-117); Anion Gap 3 (5-15); BUN 20 mg/dL (7-18); BUN/Creat Ratio 27.2 RATIO (10-20); Calcium,Total 8.3 mg/dL (8.5-10.1); Chloride 103 mmol/L (98-107); Creatinine, Serum 0.74 mg/dL (0.70-1.30); EST Glomerular Filtration Rate 113 mL/min (>60); Est Glom Filt Rate - Afr Amer 137 mL/min (>60); Estimated Creatinine Clearance 74.09 ml/min; Globulin 3.9 g/dL (2.2-4.2); Glucose 116 mg/dL (74-106); Magnesium 1.7 mg/dL (1.6-2.6); Phosphorus 2.8 mg/dL (2.5-4.9); Potassium 3.7 mmol/L (3.5-5.1); Sodium Level 137 mmol/L (136-145)
[2023-08-09] MEDS: MethylPREDNISolone 125 MG/2 ML Vial 60 MG IV ×2 (10:14→21:46)
[2023-08-09] MEDS: Famotidine 200 MG/20 ML MDV 20 MG in 0.9% Normal Saline (Pres. free 8 ML 300 MG IV ×2 (10:15→21:30)
[2023-08-09] MEDS: Enoxaparin 40 MG/0.4 ML Syringe SC (10:17)
[2023-08-09] MEDS: Ascorbic Acid 500 MG Tablet 1000 MG PO (10:19)
[2023-08-09] MEDS: Cholecalciferol (Vit D3) 125 MCG CAPSULE (5,000 UNITS) PO (10:19)
[2023-08-09] MEDS: guaiFENesin 1,200 MG Tablet 1200 MG PO ×2 (10:19→21:46)
[2023-08-09] MEDS: Zinc Sulfate 50 mg zinc (220 mg) ORAL capsule PO (10:19)
[2023-08-09] MEDS: Aspirin 81 MG TAB.CHEW PO (10:19)
[2023-08-09] MEDS: Carvedilol 6.25 MG Tablet PO (10:20)
[2023-08-09] MEDS: Multivitamins,Therapeutic Tablet 1 TABLET PO (10:21)
[2023-08-09] MEDS: Clopidogrel Bisulfate 75 MG Tablet PO (10:21)
[2023-08-09] MEDS: Oseltamivir Phosphate 75 MG Capsule PO ×2 (10:21→21:46)
[2023-08-09] MEDS: Thiamine Hydrochloride 100 MG Tablet 200 MG PO (10:21)
[2023-08-09] MEDS: Folic Acid 1 MG Tablet PO (10:22)
--- NOTE | 2023-08-09 12:39 | SP.MBSS_ITS ---
Modified Barium Swallow Patient Information Study Date: 08/09/23 Study Time: 13:00 Direct Billable Minutes: 130 Total Minutes procedure & reportin Diagnosis: Hypoxia R09.09, Severe malnutrition E43, COPD J44.9 Referring Physician: Nicol Horton Reason for Referral: Objectively assess swallow function, assess risk for aspiration, and determine recommendations for least restrictive diet textures and compensatory strategies to improve safety of swallow. 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 He presented to [facility] ER 08/09/23 complaining of SOB. Symptoms onset ~10 days ago, which worsened from dyspnea on exertion to SOB at rest. Associated symptoms are generalized weakness, chronic cough since May that is productive of yellowish sputum. He has been admitted for management of influenza A complicated by CT evidence of PNA and clinical evidence of acute exacerbation of COPD with acute hypoxic respiratory insufficiency compounded by elevated troponin of 212 pg/mL present on admission consistent with suspected non-STEMI type II causing generalized weakness with ambulatory dysfunction and frequent falls. He has been admitted to PCU for subsequent management. Of note, he attended OP dysphagia ev aluation 05/21/13 following his referral from Dr. 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 The patient reported that he was diagnosed with the cancer in November 2012 and has had approximately 7 weeks of radiation and chemotherapy. He declined oral intake trials at that time and required a PEG tube. He was instructed in oropharyngeal strengthening and did not return for additional sessions of ST. BSE BSE completed 08/09/23 revealed overt s/s of aspiration consuming all food/drink trials. FLORAL SPECIALIST recommended Regular / Thin with plans for MBSS this afternoon. Pt agreeable to MBSS. Current Diet Ordered: NPO Dentition: Natural Teeth, Edentulous (lower dentures) and Missing Teeth Mental Status: Impaired (intermittent confusion per RN) Respiratory Status: Oxygenating on 2L/M nasal cannula Penetration-Aspiration Scale Penetration-Aspiration Scale: OBJECTIVE ASSESSMENT OF SWALLOW FUNCTION (QUANTITATIVE ? PER TRIAL): PENETRATION / ASPIRATION SCALE (WILLS): 1 = does not enter airway 2 = enters airway/above vocal folds/ejected 3 = enters airway/above vocal folds/not ejected 4 = enters airway/contacts vocal folds/ejected 5 = enters airway/contacts vocal folds/not ejected 6 = enters airway/below vocal folds/ejected 7 = enters airway/below vocal folds/not ejected despite effort 8 = enters airway/below vocal folds/no effort VIDEOFLOROSCOPIC SCALE SCORE (WILLS): Grade I = aspiration of material that has penetrated into the laryngeal vestibule, intact cough reflex Grade II = aspiration < 10 % of the bolus, intact cough reflex Grade III = aspiration of < 10 % of the bolus, reduced cough reflex or aspiration of > 10 % of the bolus, intact cough reflex Grade IV = aspiration of > 10 % of the bolus, reduced cough reflex Penetration-Aspiration Scale Score Thin Liquid via teaspoon: Result: 5= enters airways/contacts vocal folds/not ejected Thin Liquid via teaspoon Trial 2: Result: 7= enters airways/below vocal folds/not ejected despite effort Thin Liquid via small single sip: cup: Result: 8= enters airway/below vocal folds/no effort (cued cough and re- swallow) Thin Liquid via small single sip: cup Effortful swallow: Result: 7= enters airways/below vocal folds/not ejected despite effort Pudding via teaspoon: Result: 3= enters airways/above vocal folds/not ejected Comment: Esophageal Screen [place] Thick Liquid via small single sip: cup: Result: 7= enters airways/below vocal folds/not ejected despite effort Thin Liquid via small single sip: cup Chin tuck: Result: 7= enters airways/below vocal folds/not ejected despite effort 1/4 Cookie: Result: 3= enters airways/above vocal folds/not ejected Oral Phase Labial Seal: Interlabial escape, no progression to anterior lip Tongue Control During Bolus Hold: Escape to lateral buccal cavity/floor of mouth Bolus Preparation/Mastication: Slow prolonged chewing/mashing with complete recollection Bolus Transport/Lingual Motion: Slowed tongue motion Oral Residue: Residue collection on oral structures Pharyngeal Phase Initiation of Pharyngeal Swallow: Bolus head in valleculae Soft Palate Elevation: Trace column of contrast/air between soft palate and pharyngeal wall Laryngeal Elevation: Min superior movement thyroid cart/min apprx aryte cart- epig petiole Anterior Hyoid Excursion: Partial anterior movement Epiglottic Movement: Partial inversion Laryngeal Vestibule Closure at Height of Swallow: None; wide column of air/contrast in laryngeal vestibule (poor laryngeal vestibular closure) Pharyngeal Stripping Wave: Present - diminished Pharyngoesophageal Segment Opening: Parital distension and partial duration; parital obstruction of flow (~50 percent of pudding bolus cleared through the UES on the first swallow) Tongue Base Retraction: Wide column of contrast between tongue base & post. pharyngeal wall Pharyngeal Residue: Majority of contrast within or on pharyngeal structures (~50% of pudding bolus) Esophageal Phase Esophageal Clearance: Esophageal retention (trace retention in the UES) Diagnosis/Impression Diagnosis: Severe oropharyngeal dysphagia R13.12 Impression: The oral phase is primarily marked by... -Slowed tongue motion for A-P transport -Mild oral residue after the swallow. -Prolonged, but complete mastication of 1/4 cookie. The pharyngeal phase is primarily marked by... -Severely decreased airway closure during the swallow due to poor anterior hyoid excursion, partial epiglottic inversion, and minimal laryngeal elevation. -Moderately-severely decreased tongue base retraction, moderately decreased UES opening/duration, and diminished pharyngeal stripping wave with resulting moderate pharyngeal residues after the swallow. -Very poor airway closure during the swallow with minimal approximation of the arytenoids to the epiglottic petiole with WIDE column of barium contrast in the laryngeal vestibule during the swallow. Once the swallow was completed, laryngeal penetration of thin and nectar/mildly thick liquids resulted in aspiration. SILENT aspiration of one cup sip of thin liquids. Cough and re- swallow was most effective in decreasing the amount of laryngeal penetration/aspiration. FLORAL SPECIALIST suspects severe oropharyngeal swallow impairment is likely secondary to terminal superintendent effects of chemoradiation treatment for SCC of R pyriform sinus >10 years ago. Recommendations Diet: Mechanical Soft Textures (Soft and Bite Size Textures - IDDSI Level 6) and Thin Liquids Compensatory Strategies: Small Bites, Small Sips (Cough and re-swallow each sip), Slow Rate, Alternate bites/solids and sips/liquids (1:1 Ratio) and Sitting upright Supervision: 1:1 Close Supervision Recommend Repeat Modified Barium Swallow: TBD Need for Skilled Speech Therapy Services: Yes Comment: -Train the patient in use of strategies to decrease risk for aspiration. -Ongoing assessment of diet tolerance of recommended textures. -Train the patient in INTENSIVE oropharyngeal exercise program to improve airway closure and pharyngeal motility (Effortful, Vianey, Linda, CTAR). Recommended Referrals: GI Consult (FLORAL SPECIALIST sent backline to Dr. Dickinson inquiring if he could intervene with impaired UES opening/duration. Awaiting reply.) Education Completed: 1. Described result of evaluation., 2. Pt understands evaluation & agrees with goals and treatment plan. (Pt agreeable to modified diet education following FLORAL SPECIALIST education for high aspiration and choking risk with regular textures given severe oropharyngeal deficits.) and 7. Pt requires further education on strategies & risks. Status Active ST Patient: Active Contact Information [facility] Speech Therapy:: Farideh Leon M.A. [facility]-FLORAL SPECIALIST? Speech-Language Pathologist?? [place] [address]?? [place] [address]?? [email or web address]?? [phone]??
[2023-08-09] MEDS: Phenobarbital 32.4 MG Tablet 64.8 MG PO ×3 (14:37→22:33)
--- NOTE | 2023-08-09 16:15 | PCM.PN.HOSP ---
Reason for Visit Reason for Visit: Shortness of breath Subjective Subjective Nursing reported choking with eating today. Patient reports he is feeling better overall however he was confused overnight and became a little bit agitated. I suspect this may be related to possibly some worsening alcohol withdrawal so we did start phenobarbital taper. This morning he was alert and oriented x 3 though however. Objective Data Objective Data Vital Signs: Vital Signs Temp Pulse Resp BP Pulse Ox O2 Del Method O2 Flow Rate 97.4 F L 77 16 140/98 H 93 Nasal Cannula 2 08/09/23 14:00 08/09/23 15:18 08/09/23 15:18 08/09/23 14:00 08/09/23 14:00 08/09/23 14:00 08/09/23 14:00 Oxygen Flow Rate (L/min) 2 Oxygen Delivery Method Nasal Cannula Weight: 56.9 kg Body Mass Index (BMI) 16.1 Intake & Output: Intake and Output for Last 24 Hours 08/07/23 08/08/23 08/09/23 23:59 23:59 23:59 Intake Total 50 / 50 3044.33 / 3044.33 505 / 505 Output Total 550 / 550 Balance 50 / 50 2494.33 / 2494.33 505 / 505 Medical Nutrition Assessment Dietitian: Malnutrition Criteria Met Start: 08/08/23 11:33 Freq: Status: Active Protocol: Document 08/08/23 11:33 (Rec: 08/08/23 11:33 [id number]) Nutrition Malnutrition Evidence of Malnutrition Exists Yes Malnutrition (severe): Chronic Evidenced By Suboptimal Energy Intake ( Severe),Weight Loss (Severe) Clinical Problem Chronic Disease or Condition Related Malnutrition Etiology severe realted to suboptimal appetite Signs/Symptoms as evidenced by estimated PO intakes <75% of needs for >1 month and 50.1lbs (28%) weight loss in 5 months Status Active Problem Recommendation Dietitian Recommendations/Changes Changed diet to Regular - ROSALEE to optimize oral intakes. Recommend 118mL Ensure Compact 4x daily with medpass to provide supplemental energy and to promote weight maintenance/gain. Recommend appetite stimulant to improve appetite and PO intakes. Lab / Micro Data 08/09/23 06:38 08/09/23 06:38 Labs: Laboratory Results - last 24 hr 08/08/23 03:57: Hemoglobin A1c 5.4 08/09/23 06:38: WBC 16.7 H, RBC 4.20 L, Hgb 14.5, Hct 42.8, MCV 101.9 H, MCH 34.5 H, MCHC 33.9, RDW Std Deviation 64.3 H, RDW Coeff of Tony 17.0 H, Plt Count 442, MPV 10.0, Immature Gran % (Auto) 0.800, Neut % (Auto) 94.1 H, Lymph % (Auto) 2.7 L, Webster % (Auto) 2.2, Eos % (Auto) 0.0, Baso % (Auto) 0.2, Absolute Neuts (auto) 15.7 H, Absolute Lymphs (auto) 0.46 L, Nucleated RBC % 0, Sodium 137, Potassium 3.7, Chloride 103, Carbon Dioxide 31.0, Anion Gap 3 L, BUN 20 H, Creatinine 0.74, Estim Creat Clear Calc 74.09, Est GFR (MDRD) Af Amer 137, Est GFR (MDRD) Non-Af 113, BUN/Creatinine Ratio 27.2 H, Glucose 116 H, Calcium 8.3 L, Phosphorus 2.8, Magnesium 1.7, Total Bilirubin 0.40, AST 40 H, ALT 26, Alkaline Phosphatase 164 H, Total Protein 6.0 L, Albumin 2.1 L, Globulin 3.9, Albumin/Globulin Ratio 0.5 L Micro: Microbiology 08/08/23 21:55 Urine, Clean Catch Legionella Antigen - Final 08/08/23 21:55 Urine, Clean Catch Streptococcus pneumoniae Antigen (M - Final 08/07/23 20:00 Mucosa - Nose SARS-CoV-2, Influenza & RSV (PCR) - Final Influenzae A Radiography Diagnostic Testing: Radiology Impression Echocardiogram 08/08/23 09:45 Interpretation Summary Normal LV size. Left ventricular systolic function is normal. The estimated ejection fraction is 55 %. The study was technically difficult. Ordering Physician: Nicol Horton Referring Physician: INGRID KRAUS Performed By: Yuliana Astorga RCS Rhythm Strip Rhythm Strip: Sinus Rhythm Rate: 92 Ectopy: None Physical Exam Const alert, oriented x3 and no apparent distress; Negative for average body habitus, healthy appearing or well nourished Constitutional Narrative: Cachectic, upper middle-aged, white male, l sitting up in bed currently getting a breathing treatment, nursing at bedside, appears older than stated age, nontoxic, appears comfortable at this time, very thin General Appearance: cooperative HEENT normocephalic, head/scalp atraumatic, hearing grossly normal bilaterally and moist oral mucous membranes HEENT Narrative: Dentition is poor, Mallampati is 1, no thrush Resp normal respiratory effort, no retractions, no use of accessory muscles and No clear to auscultation bilaterally Resp Narrative: Diffuse crackles with diffuse end expiratory wheezes, no rhonchi Auscultation: crackles and wheezes; Negative for rhonchi Cardio regular rate, regular rhythm, S1 normal heart sound, S2 normal heart sound, no murmurs, no rub, no gallops and no clicks GI normal to inspection, nondistended, normoactive bowel sounds, soft to palpation and non-tender Extremity normal to inspection, full ROM and no clubbing, cyanosis or edema Extremity Narrative: Pedal pulses are 2+ at dorsalis pedis, radial pulses are 2+ Neuro oriented x3, CN's II-XII intact bilaterally, moves all extremities and no focal motor deficits Neuro Narrative: Significant generalized weakness noted with decreased lean muscle mass Speech: speech normal Psych affect normal Psych Narrative: mild agitation today Assessment & Plan Assessment/Plan (1) Generalized weakness: (2) Elevated troponin: (3) Influenza A: (4) COPD exacerbation: (5) Falls: (6) Weakness: (7) Hypoxia: (8) Hypokalemia: (9) Hyperglycemia: (10) Severe malnutrition: PLAN: Plan Acute hypoxia secondary to influenza A with suspected COPD -Patient has had a few visits to the emergency department where he has been hypoxic previously so he may have a component of chronic hypoxic respiratory failure and need oxygen at discharge but will need to monitor -Continue as needed albuterol -Add scheduled DuoNebs -strep pneumo and Legionella antigens negative -d/c azithromycin but continue CTX -Continue Solu-Medrol 60 twice daily -Continue I-S -Add Acapella -Continue Tamiflu day 2 of 5 -Mucinex 1200 mg p.o. twice daily -Will make referral to pulmonary medicine at discharge for repeat CT of the chest and follow-up for PFTs and official diagnosis of COPD Elevated troponin -Troponins elevated in the low 200 range but no significant upward trend -Suspect related to acute illness and hypoxia -Echocardiogram showed no wall motion abn, EF 55% -Continue aspirin -Check lipids -Continue atorvastatin -Will add carvedilol 6.25 twice daily as his blood pressure has been elevated -If echocardiogram does not show any wall motion abnormality will have patient follow-up as an outpatient with cardiology for stress test -If there is abnormality on echocardiogram will consult cardiology here Suspected Dysphagia -Speech consult -NPO for now except for meds -suspect contributing to the above Leukocytosis -Likely related to steroids and demargination -Continue antibiotics as noted above Severe malnutrition -Dietitian following -Supplements added Hyperglycemia -A1c 5.4 -suspect stress response and steroids -monitor Hypertension -Continue Coreg 6.25 -Add Amlodipine 5 mg -As needed hydralazine Alcohol Abuse -CIWA with prn ativan -cont Thiamine 200 mg 3 times daily -cont folate -cont multivitamin -add phenobarbital taper -Patient states he was only drinking 2 beers a day however he has a friend that reports he was drinking 2 beers and about 5 shots -Patient denies ever having withdrawal symptoms Tobacco abuse -Recommend cessation -Continue nicotine replacement therapy DVT prophylaxis -Lovenox 40 subcu daily CODE STATUS -Full code as verified on admission Charges/Coding Visit Charges Inpatient E&M: 17913 Subs Hosp L2
[2023-08-09] MEDS: amLODIPine 5 MG Tablet PO (18:39)
[2023-08-09] MEDS: Ceftriaxone 1 GM/50 ML BAG IV (21:31)
[2023-08-09] MEDS: Atorvastatin Calcium 80 MG Tablet PO (21:46)
[2023-08-10] VITALS (17 sets, daily range): BP systolic 130–156; BP diastolic 84–116; PULSE 65–86; RESP 16–24; TEMP 36–36.8; O2SAT 85–94; BMI 16.0
[2023-08-10] MEDS: Albuterol 2.5 MG/3 ML VIAL.NEB. INHALATION (00:32)
[2023-08-10] MEDS: Phenobarbital 32.4 MG Tablet 64.8 MG PO ×4 (03:36→15:14)
[2023-08-10 05:10] LABS: Absolute Lymphocyte Count 0.26 X10^3/uL (0.83-4.51); Basophil# 0.05 X10^3/uL; Basophil% 0.2 % (0-1); Hematocrit 40.8 % (40-54); Hemoglobin 14.3 g/dL (13.0-16.5); Lymphocyte # 0.26 X10^3/ul (0.83-4.51); Mean Corpuscular Hgb 35.4 pg (27.0-32.0); Mean Platelet Vol. 9.7 fl (6.2-12.0); Monocyte# 0.71 X10^3/uL; Monocyte% 2.6 % (0-10); NRBC Flagged by Analyzer 0 % (0-5); Neutrophil # 25.97 X10^3/uL (2.7-7.7); Neutrophil % 95.4 % (47-70); POSITIVE DIFFERENTIAL YES; Platelet Count 499 K/mm3 (150-450); RBC Distribution Width CV 16.9 % (11.6-14.6); RBC Distribution Width SD 63.3 fl (35.1-43.9); Red Blood Count 4.04 M/mm3 (4.6-6.2); White Blood Count 27.2 K/mm3 (4.4-11.0)
[2023-08-10 05:35] LABS: Anion Gap 4 (5-15); BUN 23 mg/dL (7-18); BUN/Creat Ratio 33.2 RATIO (10-20); Calcium,Total 8.4 mg/dL (8.5-10.1); Chloride 101 mmol/L (98-107); Creatinine, Serum 0.69 mg/dL (0.70-1.30); EST Glomerular Filtration Rate 122 mL/min (>60); Est Glom Filt Rate - Afr Amer 147 mL/min (>60); Estimated Creatinine Clearance 73.44 ml/min; Glucose 139 mg/dL (74-106); Potassium 3.4 mmol/L (3.5-5.1); Sodium Level 137 mmol/L (136-145)
[2023-08-10 05:37] LABS: BNP,B-Type NATRIURETIC PEPTIDE 225.4 pg/mL (0-100)
--- NOTE | 2023-08-10 06:00 | RAD_ITS ---
STUDY: X-RAY CHEST REASON FOR EXAM: Male, 63 years old. hypoxia, copd exacerbation TECHNIQUE: 2 AP portable views COMPARISON: 06/26/2023 FINDINGS: EKG leads overlie the chest Hyperexpanded with chronic interstitial changes, no superimposed acute pulmonary process, no interval change There is no demonstrated pleural abnormality. Normal size heart. Normal mediastinum and suyapa. Normal visualized pulmonary arteries. Normal visualized aortic arch and descending thoracic aorta. Normal visualized thoracic spine. Normal visualized ribs, clavicles, and shoulders. There is no demonstrated abnormality of the visualized soft tissue structures of the upper abdomen. RAD/Chest 1 View (Portable) IMPRESSION: Hyperexpanded lungs without a superimposed acute pulmonary process or significant interval change Electronically Signed: Jason Flores MD at 11:11 EDT ,
[2023-08-10 06:37] LABS: Differential Indicated SCAN CRITERIA MET
[2023-08-10] MEDS: Ipratropium/Albuterol Sulfate 3 ML AMPUL.NEB INHALATION ×4 (07:14→19:13)
[2023-08-10 07:44] LABS: Differential Comment SCANNED
[2023-08-10] MEDS: MethylPREDNISolone 125 MG/2 ML Vial 60 MG IV (08:33)
[2023-08-10] MEDS: Famotidine 200 MG/20 ML MDV 20 MG in 0.9% Normal Saline (Pres. free 8 ML 300 MG IV ×2 (08:33→20:44)
[2023-08-10] MEDS: Enoxaparin 40 MG/0.4 ML Syringe SC (08:33)
[2023-08-10] MEDS: Thiamine Hydrochloride 100 MG Tablet 200 MG PO (08:35)
[2023-08-10] MEDS: Carvedilol 6.25 MG Tablet PO ×2 (08:35→17:49)
[2023-08-10] MEDS: 0.9% Saline Lock 10 ML Syringe IV ×2 (08:36→20:48)
[2023-08-10] MEDS: Aspirin 81 MG TAB.CHEW PO (08:36)
[2023-08-10] MEDS: Oseltamivir Phosphate 75 MG Capsule PO ×2 (08:36→20:46)
[2023-08-10] MEDS: Clopidogrel Bisulfate 75 MG Tablet PO (08:36)
[2023-08-10] MEDS: amLODIPine 5 MG Tablet PO (15:14)
[2023-08-10] MEDS: Ascorbic Acid 500 MG Tablet 1000 MG PO (17:49)
[2023-08-10] MEDS: Furosemide 40 MG Tablet PO (19:58)
[2023-08-10] MEDS: guaiFENesin 1,200 MG Tablet 1200 MG PO (20:44)
[2023-08-10] MEDS: Atorvastatin Calcium 80 MG Tablet PO (20:44)
[2023-08-10] MEDS: Phenobarbital 32.4 MG Tablet PO (20:45)
[2023-08-11] VITALS (16 sets, daily range): BP systolic 127–159; BP diastolic 50–92; PULSE 72–90; RESP 17–20; TEMP 36.1–36.8; O2SAT 86–97; BMI 19.3
[2023-08-11] MEDS: Phenobarbital 32.4 MG Tablet PO ×3 (05:48→21:03)
[2023-08-11 05:57] LABS: Anion Gap 6 (5-15); BUN 20 mg/dL (7-18); BUN/Creat Ratio 31.3 RATIO (10-20); Calcium,Total 8.1 mg/dL (8.5-10.1); Chloride 99 mmol/L (98-107); Creatinine, Serum 0.64 mg/dL (0.70-1.30); EST Glomerular Filtration Rate 134 mL/min (>60); Est Glom Filt Rate - Afr Amer 162 mL/min (>60); Estimated Creatinine Clearance 88.93 ml/min; Glucose 134 mg/dL (74-106); Potassium 3.4 mmol/L (3.5-5.1); Sodium Level 137 mmol/L (136-145)
[2023-08-11] MEDS: Ipratropium/Albuterol Sulfate 3 ML AMPUL.NEB INHALATION ×4 (06:55→19:55)
--- NOTE | 2023-08-11 07:46 | NURSING ---
pt. insisted on being able to eat 2 packs of bertha doones, 2 packs of annia crackers and 2 packs of unsalted crackers throughout the night despite being reminded multiple times of recommended soft and easy to chew diet. pt. stated i finally have an appetite for the first time in a long time and i am tired of jello. This nurse stood @ bedside and monitored pt. while he ate. I reminded him to alternate bites and sips of fluids. I noted an occasional cough while he ate but this appeared to clear his throat. No acute signs of respiratory distress while eating. Reminded him of his recommended diet for prior to breakfast and my leaving at the endof shift.
[2023-08-11] MEDS: Folic Acid 1 MG Tablet PO (08:21)
[2023-08-11] MEDS: Aspirin 81 MG TAB.CHEW PO (08:21)
[2023-08-11] MEDS: Ascorbic Acid 500 MG Tablet 1000 MG PO ×2 (08:21→17:24)
[2023-08-11] MEDS: Cholecalciferol (Vit D3) 125 MCG CAPSULE (5,000 UNITS) PO (08:21)
[2023-08-11] MEDS: Multivitamins,Therapeutic Tablet 1 TABLET PO (08:22)
[2023-08-11] MEDS: Oseltamivir Phosphate 75 MG Capsule PO ×2 (08:22→21:03)
[2023-08-11] MEDS: Zinc Sulfate 50 mg zinc (220 mg) ORAL capsule PO (08:22)
[2023-08-11] MEDS: Thiamine Hydrochloride 100 MG Tablet 200 MG PO (08:24)
[2023-08-11] MEDS: Famotidine 200 MG/20 ML MDV 20 MG in 0.9% Normal Saline (Pres. free 8 ML 300 MG IV ×2 (08:24→21:03)
[2023-08-11] MEDS: Enoxaparin 40 MG/0.4 ML Syringe SC (08:25)
[2023-08-11] MEDS: Potassium Chloride Oral Tablet 20 MEQ PO (08:26)
[2023-08-11] MEDS: Carvedilol 6.25 MG Tablet PO ×2 (08:26→17:24)
[2023-08-11] MEDS: amLODIPine 5 MG Tablet PO (08:27)
[2023-08-11] MEDS: Furosemide 40 MG Tablet PO (08:27)
[2023-08-11] MEDS: guaiFENesin 1,200 MG Tablet 1200 MG PO ×2 (08:27→21:03)
[2023-08-11] MEDS: Clopidogrel Bisulfate 75 MG Tablet PO (08:28)
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
--- NOTE | 2023-08-11 19:12 | PCM.PN.HOSP ---
Reason for Visit Reason for Visit: Diagnoses Unspecified severe protein-calorie malnutrition (08/07/23) Hypokalemia (08/07/23) Non-ST elevation (NSTEMI) myocardial infarction (08/07/23) Influenza due to other identified influenza virus with other respiratory manifestations (08/07/23) Chronic obstructive pulmonary disease with (acute) exacerbation (08/07/23) Other abnormalities of breathing (08/07/23) Hypoxemia (08/07/23) Weakness (08/07/23) Hyperglycemia, unspecified (08/07/23) Other specified abnormal findings of blood chemistry (08/07/23) Unspecified fall, initial encounter (08/07/23) Subjective Subjective Patient was seen and examined today, he does not appear to be agitated, he is not in any respiratory distress at rest, he is only requiring 2 L of nasal cannula oxygen. I talked him briefly about going to an extended care facility and he was not opposed to it, he did not want to go to [place] however. Objective Data Objective Data Vital Signs: Vital Signs Temp Pulse Resp BP Pulse Ox O2 Del Method O2 Flow Rate 98.2 F 88 18 134/50 H 97 Nasal Cannula 2 08/11/23 18:00 08/11/23 18:00 08/11/23 18:00 08/11/23 18:00 08/11/23 18:00 08/11/23 18:00 08/11/23 18:00 Oxygen Flow Rate (L/min) 2 Oxygen Delivery Method Nasal Cannula Weight: 68.3 kg Body Mass Index (BMI) 19.3 Intake & Output: Intake and Output for Last 24 Hours 08/09/23 08/10/23 08/11/23 23:59 23:59 23:59 Intake Total 805 / 1005 660 / 1100 1050 / 1050 Output Total 2500 / 2500 Balance 805 / 1005 660 / 500 -1450 / -1450 Medical Nutrition Assessment Dietitian: Malnutrition Criteria Met Start: 08/08/23 11:33 Freq: Status: Active Protocol: Document 08/08/23 11:33 LO (Rec: 08/08/23 11:33 LO [id number]) Nutrition Malnutrition Evidence of Malnutrition Exists Yes Malnutrition (severe): Chronic Evidenced By Suboptimal Energy Intake ( Severe),Weight Loss (Severe) Clinical Problem Chronic Disease or Condition Related Malnutrition Etiology severe realted to suboptimal appetite Signs/Symptoms as evidenced by estimated PO intakes <75% of needs for >1 month and 50.1lbs (28%) weight loss in 5 months Status Active Problem Recommendation Dietitian Recommendations/Changes Changed diet to Regular - ROSALEE to optimize oral intakes. Recommend 118mL Ensure Compact 4x daily with medpass to provide supplemental energy and to promote weight maintenance/gain. Recommend appetite stimulant to improve appetite and PO intakes. Lab / Micro Data 08/10/23 04:16 08/11/23 05:15 Labs: Laboratory Results - last 24 hr 08/11/23 05:15: Sodium 137, Potassium 3.4 L, Chloride 99, Carbon Dioxide 32.0, Anion Gap 6, BUN 20 H, Creatinine 0.64 L, Estim Creat Clear Calc 88.93, Est GFR (MDRD) Af Amer 162, Est GFR (MDRD) Non-Af 134, BUN/Creatinine Ratio 31.3 H, Glucose 134 H, Calcium 8.1 L Micro: Microbiology 08/08/23 21:55 Urine, Clean Catch Legionella Antigen - Final 08/08/23 21:55 Urine, Clean Catch Streptococcus pneumoniae Antigen (M - Final 08/07/23 20:00 Mucosa - Nose SARS-CoV-2, Influenza & RSV (PCR) - Final Influenzae A Rhythm Strip Rhythm Strip: Sinus Rhythm Rate: 92 Ectopy: None Physical Exam Narrative alert and no apparent distress Constitutional Narrative: Patient appears cachectic and older than his stated age General Appearance: cooperative and well developed Orientation / Consciousness: awake and oriented to place and self HEENT normocephalic, head/scalp atraumatic and moist oral mucous membranes Eyes PERRL, EOMs intact bilaterally and conjunctivae normal Neck supple, no JVD, thyroid normal and no carotid bruits General: trachea midline Resp normal respiratory effort, no retractions and no use of accessory muscles Resp Narrative: Scattered rhonchi are noted bilaterally on expiration Auscultation: rhonchi; Negative for rales or wheezes Cardio regular rate, regular rhythm, S1 normal heart sound, S2 normal heart sound, no murmurs, no rub and no gallops GI normal to inspection, nondistended, normoactive bowel sounds, soft to palpation, non-tender and non-distended Extremity no clubbing, cyanosis or edema Skin no rashes or lesions noted General Skin Exam: no breakdown Neuro CN's II-XII intact bilaterally, moves all extremities, no focal motor deficits and no sensory deficits noted Sensorium / Orientation: awake and alert, oriented as to place and self Psych Psych Narrative: Patient has a flat affect Assessment & Plan Assessment/Plan (1) COPD exacerbation: PLAN: Plan 1. Hypoxia secondary to influenza A and chronic obstructive pulmonary disease-continue supportive care at the present time with IV Solu-Medrol and bronchodilator treatments, patient is currently also on Tamiflu, pulse ox will be monitored #2 suspected exacerbation of COPD-again patient is on bronchodilators and Solu-Medrol #3 acute influenza A-patient is on Tamiflu #4 suspected chronic alcoholism-I have elected to decrease the patient's phenobarbital further today, patient is more alert today and does not show any signs of withdrawal at this time #5 chronic severe protein and caloric malnutrition as evidenced by estimated p.o. intake less than 75% of needs for more than 1 month and approximately 50 pound weight loss in 5 months-patient's diet was changed to regular, Ensure compact 4 times a day with med Pass is being given to the patient, an appetite stimulant was recommended if the patient's intake remains poor. #6 [id number]-[id number] care, medical course, recovery, and prognosis-patient will need temporary placement in half-way facility for inpatient rehab services, I will talk to social media project manager tomorrow about his case. Total clinical time spent by myself addressing the patient's medical issues, reviewing all of his data, and collaborating with patient's care team: 35 minutes Charges/Coding Visit Charges Inpatient E&M: 57560 Subs Hosp L2
[2023-08-11] MEDS: traZODone 100 MG Tablet PO (21:03)
[2023-08-11] MEDS: Atorvastatin Calcium 80 MG Tablet PO (21:03)
[2023-08-11] MEDS: 0.9% Saline Lock 10 ML Syringe IV (21:05)
[2023-08-12 02:24] VITALS: BMI 18.8
[2023-08-12 04:30] VITALS: BP 163/107; PULSE 89; RESP 20; TEMP 36.3; O2SAT 92
[2023-08-12] MEDS: hydrOXYzine 50 MG/ML Vial 100 MG IM (06:29)
--- NOTE | 2023-08-12 08:03 | NURSING ---
Pt. being non-compliant with diet @ start of my shift on 08/11/23 at approx. 2000, requesting crackers. Pt insisted on having crackers despite being reminded of recommended diet. This nurse monitored pt. while eating, reminding him to take a drink in between bites and to swallow twice each time, which pt. only did occasionally. Noted occasional coughing while eating, though pt. appeared to clear upper airway with 1-2 coughs. At approx. 2100, pt told this nurse he wanted to leave hospital AMA. When asked why, pt. stated he was not being comfortable in this bed, I can't sleep, and when i call asking for food, i never know when or if they will bring it to me. I discussed with pt. that he is currently using Oxygen in order to keep his SpO2 within a normal range and reminded him that he did not have home oxygen set up. When i asked what i could do to make him comfortable and willing to stay until the morning to see the hospitalist, i provided pt. with PRN trazadone, clean blankets and turned all the lights off per his request. Pt. stated he would try to get some sleep and was agreeable to staying until the AM. When doing rounds from approx. 2300 to 0300, pt. appeared to be resting comfortably in bed with eyes closed. At approx. 0600, pt. put management professionals light. When i arrived in room to see what pt. was in need of, he stated that he didn't care, that he was leaving and going home. When I informed him that the hospitalist would be in in approx. 1 to 1 and 1/2 hours to see him and discuss his POC and current need for supplemental O2, he stated i don't care, I just want to go home. I haven't slept at all. That sleeping pill didn't do a damn thing and i just want to get out of here. Get me my clothes and i'm gonna get dressed and leave. I advised pt. that i would need to let the charge nurse know and he said that's fine, you do what you gotta do, but i'm leaving. Pt. was agreeable to letting me talk to the charge nurse before he would leave. I advised Melodie Vazquez, PCU charge nurse, of situation and my concern for pt.'s safety d/t need for supplemental O2. Melodie and i went into pt.'s room- i noted while i was gone, pt. had removed O2 from his nose. When asked how pt. intended to get home, he stated that he was going to drive his truck. Pt. stated he had no one else to pick him up. Melodie and i reminded him that he was needing supplemental oxygen , which would not be at his home, and that he was needing at least one person to help him ambulate around the room. Pt. appeared to become very aggitated and verbally aggressive, using curse words and saying I don't care. When checked during conversation, pt.'s SpO2 was at 72% on room air. While trying to explain the dangers of driving with his SpO2 that low, pt. repeatedly stated i don't care, i'm leaving. Melodie then informed me to contact security and Dr. Walters regarding the situation. Security came to floor and stood by in case pt. became combative d/t increasing aggitation. When i contacted Dr. Walters, I explained the situation and the concern of pt. being a danger to himself or others if he attempted to drive home. Dr. Walters ordered a 1x dose of vistaril 100 mg IM in order to help pt. with anxiety and restlessness. Dr. Walters also stated that this may help him be able to sleep, which appeared to be pt.'s biggest concern. Upon returning to room, I explained what medication Dr. Walters had ordered. Pt. stated to give it to me and that all i want to do is to be able to go to sleep. Vistaril was administered and after approx. 5 min., pt. allowed nasal cannula to be put back on and SpO2 jevon to 92% on 9L high flow. Pt. took several sips of sprite and then asked to be covered up with blankets and lights turned down. Pt. soon after resting with his eyes closed.Monitored pt. for approx. 15 min. and then i left room to allow pt. to rest. [ End ]
--- NOTE | 2023-08-12 09:44 | CASEMGMT ---
Discharge Planning A list of?SNF providers including quality and resource use data and consistent with the patient's preferred geographic region, medical needs, and insurance network was created in [employer] [facility].? This list was provided to the SW. Oliva Johnson Discharge Planning Asst.
--- NOTE | 2023-08-12 10:48 | CASEMGMT ---
Per physician patient is in agreement with going to a senior living facility for rehab. SW met with patient. Introduced self and role at [facility]. Patient confirmed he is agreeable to go somewhere. SW went over the SNF list with patient per his request. [facility] would like [facility] and second would be [facility]. SW asked Oliva to send a referral to [facility]. Plan: SNF pending accepting facility and insurance approval. Estelita MCKINNON
--- NOTE | 2023-08-12 11:09 | CASEMGMT ---
Discharge Planning Referral sent via [facility] to [facility]. Oliva Johnson, Discharge Planning Asst.
[2023-08-12 11:29] VITALS: BP 165/96; PULSE 90; RESP 24; TEMP 36.9; O2SAT 97
[2023-08-12] MEDS: Acetaminophen 325 MG Tablet 650 MG PO (11:36)
[2023-08-12] MEDS: Clopidogrel Bisulfate 75 MG Tablet PO ×2 (11:36→11:38)
[2023-08-12] MEDS: Enoxaparin 40 MG/0.4 ML Syringe SC (11:37)
[2023-08-12] MEDS: Oseltamivir Phosphate 75 MG Capsule PO (11:38)
[2023-08-12] MEDS: Aspirin 81 MG TAB.CHEW PO (11:39)
[2023-08-12] MEDS: Folic Acid 1 MG Tablet PO (11:40)
[2023-08-12] MEDS: Ascorbic Acid 500 MG Tablet 1000 MG PO (11:41)
[2023-08-12] MEDS: Multivitamins,Therapeutic Tablet 1 TABLET PO (11:41)
[2023-08-12] MEDS: Potassium Chloride Oral Tablet 20 MEQ PO (11:41)
[2023-08-12] MEDS: Carvedilol 6.25 MG Tablet PO (11:42)
[2023-08-12] MEDS: Furosemide 40 MG Tablet PO (11:43)
[2023-08-12] MEDS: guaiFENesin 1,200 MG Tablet 1200 MG PO (11:44)
[2023-08-12] MEDS: amLODIPine 5 MG Tablet PO (11:45)
[2023-08-12] MEDS: Famotidine 200 MG/20 ML MDV 20 MG in 0.9% Normal Saline (Pres. free 8 ML 300 MG IV (11:46)
[2023-08-12] MEDS: Cholecalciferol (Vit D3) 125 MCG CAPSULE (5,000 UNITS) PO (11:46)
[2023-08-12] MEDS: Phenobarbital 32.4 MG Tablet PO (11:46)
[2023-08-12] MEDS: predniSONE 20 MG Tablet 40 MG PO (11:51)
--- NOTE | 2023-08-12 12:33 | CASEMGMT ---
[facility] accepted patient and will submit for pre-cert. LONI will notify patient. Plan: [facility] pending pre-cert. Estelita MCKINNON
--- NOTE | 2023-08-12 15:17 | CASEMGMT ---
LONI spoke with patient and his friend [place]. LONI let them know [facility] can take patient. Patient was agreeable. [place] also asked if LONI could get a hold of the courts regarding patient's court date Sat. They did not know patient's finance attorney. LONI will work on this. Estelita MCKINNON
--- NOTE | 2023-08-12 16:03 | CASEMGMT ---
LONI called [facility] court and spoke with Castro one of the clerks. LONI explained situation and asked for a fax number. The fax number is [phone], , and [employer] Beny Davis. LONI will work on a letter for the [employer] to notify him of patient's hospitalization. Estelita MCKINNON
--- NOTE | 2023-08-12 17:40 | NURSING ---
This RN called to bedside by APPLICATION SUPPORT INTERN's. Pt yelling at staff stating I want to leave and I am leaving whether anyone wants me to or not. Pt educated on importance of staying. Pt still continuing to yell I want to leave. called to floor and went to pts bedside and discussed leaving ama and importance of staying. Despite pt education pt still stating I want to leave and will walk out of here. Pt remains alert and oriented. AMA papers signed by patient and left at 1740. Charge nurse notified. Tele and IV removed. Security called to make sure pt left premises.
--- NOTE | 2023-08-12 17:47 | PCM.HOSP.N ---
Hospitalist Note Patient today has been belligerent to medical staff and nursing, he demanded to be discharged, I came down talked with him and told him that he was oxygen dependent and that if he left he would , patient understood this, he understood he was in the hospital and he understood that he was making the decision to leave AGAINST MEDICAL ADVICE. Patient was dressed, his IV was removed, I called his friend on the phone who came in and talked with the patient but despite this, the patient decided to leave AMA. Security was called regarding the patient, the patient walked out into the parking lot and the police were also aware that the patient is in poor shape to drive. Likely he will be brought back to the emergency room and have to be readmitted, patient has no family and his friend does not have power of energy attorney over him. His friend apologized and said that he was not going to be responsible for the patient's actions. I do not feel the patient is going through alcohol withdrawal, he is not hallucinating and he appears to be aware that he is making a decision to leave AGAINST MEDICAL ADVICE and that it could potentially be fatal.
--- NOTE | 2023-08-12 19:55 | DS.PCM_ITS ---
Providers Date of Admission: 08/07/23 Date of Discharge: 08/12/23 Primary Care Physician: SILVIO Mejias Reason For Visit: ACUTE INFLUENZA A, ACUTE EXACERBATION OF COPD + Diagnosis Discharge Diagnosis (1) COPD exacerbation: Status: Chronic Code(s): J44.1 - Chronic obstructive pulmonary disease with (acute) exacerbation Plan 1. Hypoxia secondary to influenza A and chronic obstructive pulmonary disease- continue supportive care at the present time with IV Solu-Medrol and bronchodilator treatments, patient is currently also on Tamiflu, pulse ox will be monitored #2 suspected exacerbation of COPD-again patient is on bronchodilators and Solu- Medrol #3 acute influenza A-patient is on Tamiflu #4 suspected chronic alcoholism-I have elected to decrease the patient's phenobarbital further today, patient is more alert today and does not show any signs of withdrawal at this time #5 chronic severe protein and caloric malnutrition as evidenced by estimated p.o. intake less than 75% of needs for more than 1 month and approximately 50 pound weight loss in 5 months-patient's diet was changed to regular, Ensure compact 4 times a day with med Pass is being given to the patient, an appetite stimulant was recommended if the patient's intake remains poor. #6 gudn-vjjcdbj-lteikuqvemj care, medical course, recovery, and prognosis- patient will need temporary placement in group home facility for inpatient rehab services, I will talk to high school social science teacher tomorrow about his case. Total clinical time spent by myself addressing the patient's medical issues, reviewing all of his data, and collaborating with patient's care team: 35 minutes Medications at Discharge Home Medications NK 08/07/23 Hospital Course Operations None Procedures None Summary of Care Provided Minutes Spent on Discharge: 32 Hospital Course: 63-year-old white male seen in the emergency room at [facility] with a chief complaint of shortness of breath, workup in the emergency room revealed the patient to have influenza A and evidence of possible pneumonia along with an acute exacerbation of COPD and hypoxia. Patient was admitted to PCU, he was given phenobarbital due to concerns of alcohol withdrawal-it was stated the patient drank at least 5-6 drinks a day, his house was an ill repair and hygiene was poor according to his friend. Patient had no family members. Patient was seen by nutritional services, he appeared cachectic and had evidence of malnutrition. 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 Patient was treated with Tamiflu and corticosteroids, he was not felt to have underlying bacterial pneumonia. This examiner did not feel he had influenza pneumonia. Patient was belligerent at times during his hospitalization, on 08/12/2023, patient became upset and requested discharge home, I contacted his friend who came up to the hospital and talked with him but despite this he decided to walk out of the hospital. On that date, he had been seen and examined: On examination he appeared upset and argumentative. Vital signs as documented. Skin warm and dry and without overt rashes. Neck without JVD, neck was supple, trachea midline, thyroid was normal. Lungs clear bilaterally, normal air movement was noted. Heart exam no table for regular rhythm, normal sounds and absence of murmurs, rubs or gallops. Abdomen unremarkable and without evidence of organomegaly, masses, or abdominal aortic enlargement. Bowel sounds are present, abdomen is not distended. Extremities nonedematous, no cyanosis was noted, no clubbing was noted. Neuro: Cranial nerves II through XII are grossly intact, no focal motor deficits were noted, sensation to light touch and pinprick intact, motor exam 5/5 throughout. Psych: Patient is alert and oriented x3, he is argumentative and agitated at times Patient appeared to understand on that date that it would not be in his best interest to leave the hospital due to his oxygen requirement, he decided to leave the hospital anyway AMA. Weight / BMI Weight Weight: 66.8 kg Body Mass Index (BMI) 18.8 ABG / Lab / Microbiology Data 08/10/23 04:16 08/11/23 05:15 Microbiology: Microbiology 08/08/23 21:55 Urine, Clean Catch Legionella Antigen - Final 08/08/23 21:55 Urine, Clean Catch Streptococcus pneumoniae Antigen (M - F inal 08/07/23 20:00 Mucosa - Nose SARS-CoV-2, Influenza & RSV (PCR) - Final Influenzae A Meaningful Use Info Meaningful Use Diagnoses (Choose all that apply): None applicable Discharge Plan Admission Admit Date/Time: 08/07/23 22:33 Attending Provider: Arnav Billings Primary Care Provider: Cha Powell Consulting Providers: Tavares Montana; Nicol Horton Discharge Orders/Prescriptions Prescriptions: No Action NK Referrals / Follow Up: Yann Amaya DO [Med Staff - Active Staff] - Within 1 Month (You had an abnormal Cat scan of your chest and need a repeat scan in 6-8 weeks please call to make an appt as soon as you can following discharge) Castro Patiño MD [Med Staff - Active Staff] - (You had some evidence that your heart was stressed when you were ill and need to follow up with cardiology for possible stress test. Please call to make an appt as soon as you can following discharge) Cha Powell, PA [Primary Care Provider] - Within 1 Week Disposition Disposition (needs filled in before D/C Order can be placed): Against Medical Advice Charges/Coding Visit Charges Inpatient E&M: 36106 Disch Hosp >30min
--- NOTE | 2023-08-13 08:05 | CASEMGMT ---
LONI did not yet send a letter to court notifying them of patient's hospitalization. LONI will not send this letter since patient has left AMA. LONI will call Adult Protective Services. Estelita MCKINNON
--- NOTE | 2023-08-13 09:29 | CASEMGMT ---
LONI called [place] at [facility]. LONI made a referral. Estelita Ferrari MSW INO
== END 2023-08-12 17:35 | disposition left against medical advice (07) | DRG 190 ==
LOC: ED 20:21 → PCU 22:20
PROVIDERS: Internal Medicine; Admitting Provider Internal Medicine; Emergency Provider Emergency Medicine; PCP Physician Assistant; Visit Provider Internal Medicine
DX: J44.1 Chronic obstructive pulmonary disease with (acute) exacerbation (principal); E43 Unspecified severe protein-calorie malnutrition; J96.11 Chronic respiratory failure with hypoxia; E87.1 Hypo-osmolality and hyponatremia; Z68.1 Body mass index [BMI] 19.9 or less, adult; J44.0 Chronic obstructive pulmonary disease with (acute) lower respiratory infection; I10 Essential (primary) hypertension; F10.10 Alcohol abuse, uncomplicated; J10.1 Influenza due to other identified influenza virus with other respiratory manifestations; S20.212A Contusion of left front wall of thorax, initial encounter; S50.02XA Contusion of left elbow, initial encounter; E87.6 Hypokalemia; W19.XXXA Unspecified fall, initial encounter; Z99.81 Dependence on supplemental oxygen; R53.1 Weakness; Z87.891 Personal history of nicotine dependence; Z79.82 Long term (current) use of aspirin; R73.9 Hyperglycemia, unspecified; R77.8 Other specified abnormalities of plasma proteins; R29.6 Repeated falls; R13.10 Dysphagia, unspecified; Y90.9 Presence of alcohol in blood, level not specified
CPT/HCPCS: 36415; 70450; 71045; 71101; 71275; 73060; 74230; 80048; 80053; 80061; 83036; 83605; 83735; 83880; 84100; 84443; 84484; 85025; 87449; 87631; 92526; 92610; 92611; 93005; 93306; 94640; 94668; 97110; 97161; 97166; 97530; 97535; 97802; 97803; 99284; J7030; J7040; J7050; Q9967; A4216; J3490

== ENCOUNTER 2023-08-13 20:53 | Emergency (ER) | payer MEDICARE, MEDICAID, SELFPAY ==
[2023-08-13 20:55] VITALS: BP 158/132; PULSE 105; PULSE 107; RESP 26; RESP 27; TEMP 36.6; O2SAT 80; O2SAT 81; O2SAT 91; BMI 18.0
[2023-08-13 21:04] VITALS: BP 158/132; PULSE 115; RESP 26; TEMP 36.6; O2SAT 91
[2023-08-13 21:08] VITALS: O2SAT 93
--- NOTE | 2023-08-13 21:24 | EKG12_ITS ---
Test Reason : Blood Pressure : / mmHG Vent. Rate : 104 BPM Atrial Rate : 104 BPM P-R Int : 126 ms QRS Dur : 076 ms QT Int : 354 ms P-R-T Axes : 079 074 084 degrees QTc Int : 465 ms Sinus tachycardia with Premature atrial complexes with Aberrant conduction Nonspecific T wave abnormality Abnormal ECG Confirmed by Castro Patiño ([id number]), editor house organ SEJAL KRAFT ([id number]) on 08/15/2023 11:05:18 AM Referred By: Confirmed By:Castro Patiño
--- NOTE | 2023-08-13 21:26 | ED.VIS.DYS ---
HPI History of Present Illness Chief Complaint: Shortness of Breath Informant: patient Narrative Narrative: Patient presents via EMS secondary shortness of breath. He was admitted the for COPD exacerbation and influenza A. Patient signed out AMA yesterday despite being on 9 L of oxygen at the time. EMS was called [facility]al. His O2 sats were in the 50s to 70s on room air. He was given a DuoNeb and brought in on a nonrebreather with O2 sats reportedly in the 80s. At the time of my examination is on 6 L nasal cannula with O2 sat around 90%. Despite this, patient is speaking full sentences and demanding to drink water. [facility] Medical History (Updated 08/13/23 @ 22:[address] Anne Fregoso MD) Alcohol abuse Asthma COPD (chronic obstructive pulmonary disease) Hypertension Severe malnutrition Weakness of left upper extremity Home Medications NK 08/07/23 [History Last Taken Unknown] Allergy/AdvReac Type Severity Reaction Status Date / Time No Known Allergies Allergy Verified 08/13/23 21:05 Social History household members: none housing: other current occupational status: employed Smoking Status: Current every day smoker tobacco type: cigarettes ROS ROS ED Constitutional Constitutional ED: Denies chills or fever(s) Eyes Eyes: Denies change in vision ENT ENT ED: Denies rhinorrhea or sore throat Cardiovascular Cardiovascular: Denies chest pain Respiratory/Chest Respiratory/Chest: Reports dyspnea; Denies cough Gastrointestinal Gastrointestinal: Denies abdominal pain, nausea or vomiting Musculoskeletal Musculoskeletal: Denies back pain or extremity pain Integumentary Denies Abrasions or rash Neurologic Neurologic: Reports weakness; Denies headache(s) Psychiatric Psychiatric: Reports anxiety; Denies depression Allergic/Immunologic Allergic/Immunologic ED: Denies lip swelling or urticaria EXAM Physical Exam Const Vital Signs: 08/13/23 20:55 08/13/23 20:55 08/13/23 21:04 Temperature 98 F 98 F 98 F Temperature Source Temporal Temporal Temporal Pulse Rate 105 H 107 H 115 H Respiratory Rate 27 H 26 H 26 H Respiratory Effort Respiratory Depth Respiratory Pattern Blood Pressure 158/132 H 158/132 H 158/132 H Blood Pressure Mean 140 140 140 Pulse Ox 91 81 91 Oxygen Delivery Method Nasal Cannula Room Air Nasal Cannula Oxygen Flow Rate (L/min) 6 9 08/13/23 21:08 08/13/23 21:54 08/13/23 22:00 Temperature Temperature Source Pulse Rate 110 H 112 H Respiratory Rate 24 H 22 H Respiratory Effort Short of Breath Labored Accessory Muscle Use Respiratory Depth Deep Respiratory Pattern Hyperpnea Blood Pressure 101/78 114/78 Blood Pressure Mean 85 90 Pulse Ox 92 91 Oxygen Delivery Method Nasal Cannula Nasal Cannula Nasal Cannula Oxygen Flow Rate (L/min) 6 6 6 08/13/23 22:04 Temperature 99.1 F Temperature Source Temporal Pulse Rate 123 H Respiratory Rate 23 H Respiratory Effort Respiratory Depth Respiratory Pattern Blood Pressure 88/54 L Blood Pressure Mean 65 Pulse Ox 90 Oxygen Delivery Method Venturi Mask Oxygen Flow Rate (L/min) Positive cachectic General Appearance ED: cachectic Nutritional Appearance: cachectic HEENT Reports dry mucous membranes Mouth ED: Yes dry mucous membranes Mouth: dry mucous membranes Eyes EOMs intact bilaterally Resp Resp Narrative: Decreased air movement bilaterally with mild wheezes. Cardio Rate: tachycardic GI non-tender Palpation: soft Extremity normal to inspection Neuro oriented x3 Neuro Narrative: Moves all 4 extremities. Answers questions appropriately. MDM MDM MDM Narrative Medical decision making narrative: Patient placed on library monitor. EKG obtained to evaluate for cardiac arrhythmia/ischemia. IV line established. Labwork obtained to evaluate for leukocytosis, anemia, and electrolyte derangement. Chest x-ray obtained to evaluate for acute lung pathology, cardiac size, or mediastinal abnormality. Patient given a dose of Solu-Medrol. Lab Data Attestation: I reviewed the patient's lab results. Labs: Laboratory Results - last 24 hr 08/13/23 21:14 WBC 16.5 H RBC 3.72 L Hgb 12.8 L Hct 38.4 L MCV 103.2 H MCH 34.4 H MCHC 33.3 RDW Std Deviation 62.9 H RDW Coeff of Tony 16.3 H Plt Count 755 H* MPV 10.1 Immature Gran % (Auto) 0.700 Neut % (Auto) 82.3 H Lymph % (Auto) 3.6 L [place] % (Auto) 12.8 H Eos % (Auto) 0.2 Baso % (Auto) 0.4 Absolute Neuts (auto) 13.5 H Absolute Lymphs (auto) 0.60 L Nucleated RBC % 0 Differential Comment Diff Path Review May foll Sodium 137 Potassium 4.0 Chloride 98 Carbon Dioxide 35.0 H Anion Gap 4 L BUN 50 H Creatinine 0.80 Estim Creat Clear Calc 82.94 Est GFR (MDRD) Af Amer 125 Est GFR (MDRD) Non-Af 103 BUN/Creatinine Ratio 62.6 H Glucose 83 Calcium 8.1 L Treatment and Re-Evaluation :: CBC was a white count of 16.5 with 82% neutrophils. Hemoglobin is 12.8. Platelet count is elevated at 755,000. Chemistry studies unremarkable. Chest x-ray per my interpretation reveals hyperinflation with chronic changes. Patient discussed with hospitalist for admission. When she entered his room he told her to get the fuck out of my room and leave me alone. He states that he is going home and does not want to be admitted. He is alert and oriented at this time he can make this decision. He is on oxygen and his O2 sat is over 90%. When hospitalist asked him if he collapses in the parking lot on the way out the door if he wants to be revived he said no. He does not want CPR or intubation. Discharge Plan Triage Chief Complaint: Shortness of Breath ED Provider: Anne Fregoso Dx/Rx/DC Orders Clinical Impression: Hypoxia, COPD exacerbation Prescriptions: No Action NK Primary Care Provider: Cha Powell Referrals: Cha Powell PA [Primary Care Provider] - Activity Restrictions/Additional Instructions: You are signing out AGAINST MEDICAL ADVICE. At this time you do require oxygen to maintain your oxygen levels. You do not have this available at home. You understand that if you go home, you may because of low oxygen levels. You are still insistent on going home and state that you do not want CPR or intubation if you were to collapse and become unresponsive. Disposition Disposition: Against Medical Advice
[2023-08-13] MEDS: MethylPREDNISolone 125 MG/2 ML Vial 80 MG IV (21:36)
[2023-08-13] MEDS: 0.9% Normal Saline (1000mL) 1,000 ML 150 ML IV (21:36)
[2023-08-13 21:37] LABS: Absolute Neutrophil Count 13.5 X10^3/uL (2.0-7.7); Basophil# 0.06 X10^3/uL; Basophil% 0.4 % (0-1); Eosinophil# 0.04 X10^3/uL; Eosinophils% 0.2 % (0-5); Hematocrit 38.4 % (40-54); Hemoglobin 12.8 g/dL (13.0-16.5); Lymphocyte % 3.6 % (19-41); Mean Corp Hgb Conc 33.3 g/dL (32-36); Mean Corpuscular Hgb 34.4 pg (27.0-32.0); Mean Corpuscular Volume 103.2 fL (80-94); Mean Platelet Vol. 10.1 fl (6.2-12.0); Monocyte# 2.11 X10^3/uL; Monocyte% 12.8 % (0-10); NRBC Flagged by Analyzer 0 % (0-5); Neutrophil # 13.54 X10^3/uL (2.7-7.7); Neutrophil % 82.3 % (47-70); POSITIVE COUNT YES; POSITIVE DIFFERENTIAL YES; RBC Distribution Width CV 16.3 % (11.6-14.6); RBC Distribution Width SD 62.9 fl (35.1-43.9); Red Blood Count 3.72 M/mm3 (4.6-6.2); White Blood Count 16.5 K/mm3 (4.4-11.0)
--- NOTE | 2023-08-13 21:40 | RAD_ITS ---
EXAM: XR CHEST, 1 VIEW CLINICAL INDICATION: sob TECHNIQUE: Frontal view of the chest. COMPARISON: Previous chest radiographs of 08/10/2023 and 08/07/2023. CTA chest of 08/07/2023. FINDINGS: LUNGS AND PLEURAL SPACES: Minimal patchy airspace disease has developed within the left midlung, suspicious for pneumonia. No acute infiltrates are noted on the right. Lungs remain hyperinflated. Pulmonary interstitial markings remain thickened bilaterally; small rounded lucencies are noted within both lower lungs, consistent with bronchiectasis noted on the prior CTA of 08/07/2023. No pneumothorax. Left lateral costophrenic angle remains slightly blunted, consistent with pleural thickening. HEART: Normal heart size. Chronic pruning of peripheral pulmonary partial markings secondary to pulmonary edema. MEDIASTINUM: Thoracic aorta remains minimally elongated. Trachea is midline. BONES/JOINTS: Mid to lower thoracic degenerative spurring. Severe subluxation of left humeral head with narrowing of the subacromial distance indicating rotator cuff atrophy and/or tear. No acute fracture. SOFT TISSUES: Unremarkable. RAD/Chest 1 View (Portable) IMPRESSION: Pulmonary emphysema with chronic fibrotic changes. Interval development of minimal patchy airspace disease within the left midlung, suspicious for pneumonia. Electronically Signed: Mariusz Chapa MD at 23:02 EDT ,
[2023-08-13 21:49] LABS: Differential Indicated SCAN CRITERIA MET; Platelet Count 755 K/mm3 (150-450)
[2023-08-13 21:52] LABS: Anion Gap 4 (5-15); BUN 50 mg/dL (7-18); BUN/Creat Ratio 62.6 RATIO (10-20); Calcium,Total 8.1 mg/dL (8.5-10.1); Chloride 98 mmol/L (98-107); EST Glomerular Filtration Rate 103 mL/min (>60); Est Glom Filt Rate - Afr Amer 125 mL/min (>60); Estimated Creatinine Clearance 82.94 ml/min; Glucose 83 mg/dL (74-106); Sodium Level 137 mmol/L (136-145)
[2023-08-13 21:54] VITALS: BP 101/78; PULSE 110; RESP 24; O2SAT 92
[2023-08-13 22:00] VITALS: BP 114/78; PULSE 112; RESP 22; O2SAT 91
[2023-08-13 22:04] VITALS: BP 88/54; PULSE 123; RESP 23; TEMP 37.3; O2SAT 90
--- NOTE | 2023-08-13 23:10 | ED.RN ---
THIS RN IN ROOM BECAUSE PATIENT YELLING FOR HELP. PT DID NOT USE HIS CALL LIGHT EVEN THOUGH IT WAS NEXT TO HIM. UPON ENTERING THE PATIENT'S ROOM THIS RN NOTED THAT PATIENT HAD PULLED OUT HIS IV AND WAS NOT WEARING HIS OXYGEN. PT WAS BOOSTED IN BED, O2 WAS APPLIED, AND BLEEDING WAS CONTROLLED FROM IV SITE. PATIENT STATES THAT HIS OXYGEN TUBING WAS CLOGGING HIS NOSE RESPIRATORY NOTIFIED AND REPLACED PTS NASAL CANNULA WITH A VENTURI MASK. HOSPITALIST IN ROOM TO SEE PATIENT. PATIENT TOLD DR. SIERRA GO FUCK OFF...I WAS MORE COMFORTABLE SITTING ON MY FRONT PORCH...I JUST WANT TO GO HOME...NOTHING YOU ARE DOING IS HELPING ME DR AKBAR MADE AWARE AND PATIENT SIGNED AMA FORMS. ADDITIONALLY, PER PATIENT'S WISHES, DR. SIERRA COMPLETED A DNR-CC FORM FOR PATIENT. PATIENT DRESSED AND AGREED TO CALL A TAXI. PER PATIENT'S REQUEST, WHEELED OUTSIDE TO SIT ON BENCHES AND WAIT FOR TAXI.
[2023-08-15 09:35] LABS: Pathologist Review Reviewed
== END 2023-08-13 22:10 | disposition left against medical advice (07) ==
PROVIDERS: Emergency Provider Emergency Medicine; PCP Physician Assistant; Visit Provider Emergency Medicine
DX: J44.1 Chronic obstructive pulmonary disease with (acute) exacerbation (principal); F17.210 Nicotine dependence, cigarettes, uncomplicated; I10 Essential (primary) hypertension; R09.02 Hypoxemia
CPT/HCPCS: 71045; 80048; 85025; 93005

== ENCOUNTER 2023-08-13 23:20 | Inpatient (IN) | payer MEDICARE, MEDICAID, SELFPAY ==
[2023-08-13 23:23] VITALS: BP 155/88; TEMP 35.3; BMI 17.9
--- NOTE | 2023-08-13 23:31 | HP.PCM.HOS_ITS ---
HPI - General General Date of Admission: 08/13/23 Date of Service: 08/13/23 Chief Complaint: Dyspnea, wheezing, hypoxia. HPI Narrative The patient is a 63 y/o M w/ PMHx: COPD/Asthma, Tobacco use, Hx Throat CA s/p unclear type surgery but otherwise unclear intervention history, HTN, HLD, Severe protein calorie malnutrition, EtOH abuse, recent discharge AMA 08/12/2023 following admission on 08/07/2023 secondary to acute influenza A with acute exacerbation COPD/asthma with associated notable hypoxia as well as alcohol withdrawal treated with phenobarbital with documented clinical improvement however patient became belligerent and upset and left AMA 08/12/2023 and return to home despite his need for oxygen supplementation at that time who re- presented to the ED 08/13/2023 earlier in the evening secondary to dyspnea with difficulty with oxygen saturations reportedly in the 50s to 70s prompting EMS call who placed him on a nonrebreather and administered a DuoNeb therapy with transition to the ED for evaluation who at that time refused admission and was belligerent and aggressive leaving again AMA despite strong discussions with recommendation for medical therapy and treatments who now again re-presents to the [facility] ED on 08/13/23 later in the evening only 1-2 hours following his recent departure with persistent ongoing shortness of breath and again inability to appropriately maintain pulse oximeter prompting EMS call who brought him in again for evaluation. In the ED he did note to staff that he had bout of emesis following coughing fits and reported it as bright red blood but this recurrent in the ED and he noted it looked exactly the same and from its appearance it has no bright red blood or dark blood of note. Patient reports that his cough has been productive of creamy/green sputum which was reproduced in the ED. He notes underlying anxiety and that the reason he initially left AMA was because he did not feel as if he was getting any better. Workup in the ED included T98, heart rate 105, BP 158/132, respiratory rate 27, initially noted to be 91% on 6 L nasal cannula, BP did decrease in the ED down to a low of 82/70 but improved with IV fluids to 99/70, CBC with WBC 16.5, hemoglobin 12.8, MCV 103.2, platelets 755 with left shift and lymphopenia, VBG with pH 7.31, pO2 22, bicarb 31, O2 saturation 32 on a Ventimask, BMP with CO2 35, BUN/creatinine 50/0.8, troponin 37, chest x-ray with pulmonary emphysematous and chronic fibrotic changes with interval development of patchy airspace disease within the left midlung suspicious for pneumonia. In the ED patient ministered IV vancomycin, IV Zosyn, DuoNeb and albuterol therapies as well as Zithromax 500 mg IV x 1 and 1 L normal saline bolus in addition to Tylenol 1000 mg p.o. x 1. PFSH Medical History Alcohol abuse Asthma COPD (chronic obstructive pulmonary disease) History of throat cancer Hypertension Severe malnutrition Tobacco use Home Medications NK 08/07/23 [History Last Taken Unknown] Allergy/AdvReac Type Severity Reaction Status Date / Time No Known Allergies Allergy Verified 08/13/23 21:05 Family History Mother No problems noted. Father No problems noted. Surgical History History of throat surgery Social History household members: none housing: other current occupational status: employed Smoking Status: Current every day smoker tobacco type: cigarettes Smoking packs per day: 1 Smoking cigarettes per day: 20.0 how long ago did patient quit smoking: Patient notes he quit during recent admission 08/11/23. alcohol intake: current alcohol intake frequency: 3 or more drinks per day details: ~ 5 shots hard liquor, several beers daily substance use type: does not use ROS ROS Narrative Admission Review of Systems: CONSTITUTIONAL: No weight loss, fever, chills, + weakness or fatigue. HEENT: Eyes: No visual loss, blurred vision, double vision or yellow sclerae. Ears, Nose, Throat: No hearing loss, sneezing, congestion, runny nose or sore throat. SKIN: No rash or itching, lesions, wounds. CARDIOVASCULAR: No chest pain, chest pressure or chest discomfort, palpitations, edema, orthopnea, syncopal events. RESPIRATORY: + Dyspnea with productive cough of green sputum, wheezing. No hemoptysis. GASTROINTESTINAL: + anorexia, nausea, occasional emesis with coughing fit, did report initially emesis with bright red blood but upon review of actual contents this was not consistent. No diarrhea, abdominal pain, melena, BRBPR. GENITOURINARY: No dysuria, frequency, urgency or retention. NEUROLOGICAL: No headache, dizziness, syncope, paralysis, ataxia, numbness or tingling in the extremities, focal weakness, change in bowel or bladder control, seizure. MUSCULOSKELETAL: + muscle, back pain, joint pain or stiffness. HEMATOLOGIC: + Anemia, easy bleeding/bruising. LYMPHATICS: No enlarged nodes. No history of splenectomy. PSYCHIATRIC: + History of anxiety, possibly underlying depression but uncertain. ENDOCRINOLOGIC: No reports of sweating, cold or heat intolerance. No polyuria or polydipsia. ALLERGIES: + History of asthma. Vital Signs Vital Signs Vital Signs: 08/13/23 23:23 Temperature 95.6 F L Temperature Source Temporal Blood Pressure 155/88 H Blood Pressure Mean 110 Weight Weight: 140 lb Body Mass Index (BMI) 17.9 Physical Exam Narrative Physical Examination: General: Awake, alert, oriented to self, place and recent events, intermittently severely agitated and aggressive, currently calm down, following some commands, laying in the ED bed, ill-appearing. Skin: Normal color, normal turgor, no icterus, no cyanosis except occasional staged ecchymoses, bilateral lower extremity venous stasis skin changes. HEENT: AT/NC, EOMI, PERRLA, dry MM, no carotid bruits or JVD noted. Lungs: Significantly diminished, greater bases, tachypnea, currently improved, no evidence of any respiratory distress, no rales or rhonchi. Heart: Moderately tachycardic with regular rhythm; no gallop, rub audible. Abdomen: Soft, thin cachectic habitus, NTTP, ND, normal BS, no markedly appreciated HSM. Extremities: No cyanosis, no clubbing, no marked peripheral edema. Neurological: Patient awake, alert, oriented as noted, cognitive function intact; pupils equally reactive to light and accommodation, cranial nerves II- XII grossly normal, moving all 4 extremities, no focal deficits, strength severely globally decreased. Psychiatric: Affect appears currently fatigued, intermittently has been anxious and agitated and aggressive, do suspect likely underlying depression, admits to anxiety. Assessment & Plan Assessment/Plan (1) Acute respiratory failure with hypoxia and hypercapnia: (2) Pneumonia: PLAN: Plan The patient is a 63 y/o M w/ PMHx: COPD/Asthma, Tobacco use, Hx Throat CA s/p unclear type surgery but otherwise unclear intervention history, HTN, HLD, Severe protein calorie malnutrition, EtOH abuse, recent discharge AMA 08/12/2023 following admission on 08/07/2023 secondary to acute influenza A with acute exacerbation COPD/asthma with associated notable hypoxia as well as alcohol withdrawal treated with phenobarbital with documented clinical improvement however patient became belligerent and upset and left AMA 08/12/2023 and return to home despite his need for oxygen supplementation at that time who re- presented to the ED 08/13/2023 earlier in the evening secondary to dyspnea with difficulty with oxygen saturations reportedly in the 50s to 70s prompting EMS call who placed him on a nonrebreather and administered a DuoNeb therapy with transition to the ED for evaluation who at that time refused admission and was belligerent and aggressive leaving again AMA despite strong discussions with re commendation for medical therapy and treatments who now again re-presents to the [facility] ED on 08/13/23 later in the evening only 1-2 hours following his recent departure with persistent ongoing shortness of breath and again inability to appropriately maintain pulse oximeter prompting EMS call who brought him in again for evaluation. #1. Acute Hypoxic and Hypercarbic Respiratory Failure on Chronic secondary to Acute Left Midlung Pneumonia, Possible GN/GP organisms complicated by Acute on Chronic COPD/Asthma Exacerbation and recent Influenza A Viral Syndrome: Will admit to PCU, maintain on oxygen with wean as tolerated to room air, continue ATC duonebs, PRN albuterol, maintained on IV Zosyn and Vancomycin w/ MRSA screen requested with de-escalation as able, HOB, IS parameters w/ pending sputum cultures, full respiratory viral panel and urine antigens. Bld cx x 2 obtained in the ED. PT/OT/CM consulted for discharge planning. #2. Acute Anemia, Macrocytic, Unclear etiology: Admission hemoglobin 12.8, MCV 103.2, previous to this patient had primarily been in the 14 range, most recently 08/10/2023 hemoglobin 14.3, will defer chemoprophylaxis to be cautious as patient did report questionable hematemesis but upon review of the contents it was not consistent at all but to be cautious will maintain on IV PPI, obtain a guaiac, obtain iron panel as well as vitamin B12 and folic acid. #3. EtOH Abuse: Patient status post recent admission with alcohol withdrawal treatment with no evidence of any ongoing withdrawal. He denies any alcohol since his discharge. He had previously drinking several shots of hard liquor and beers daily. To be cautious will maintain on CIWA protocol, MVI, thiamine and folic acid. Case management consulted. #4. History throat cancer: Unclear specific type, status post resection but unclear specific intervention and unclear interventions further for his cancer, encourage continued outpatient follow-up as previously arranged with oncology. #5. Severe protein calorie malnutrition: Evidenced by significantly reduced BMI, obvious muscle and fat loss, cachectic appearing, nutrition consulted for recommendations. #6. Hypertension: Noted history, not on regimen, upon ED arrival blood pressure fluctuated and eventually did decrease but improved with IV fluids, continue to closely monitor. #7. Hyperlipidemia: Not on regimen, defer to outpatient. #8. Tobacco Abuse: Encouraged cessation, inpatient consultation per RT, NR if desired. #9. DVT prophylaxis: SCDs, defer chemoprophylaxis pending evaluation as noted above. #10. CODE status: Patient does not have healthcare power of trademark attorney or living will in place but notes that if he needed a medical decision maker and was unable to do so himself he wants his friend Salinas Salazar to be his ultimate decision maker. Discussed CODE status at length including difference between FULL code, DNR-CCA and DNR-CC status. Following discussions about the differences in these status, requested DNR-CCA, no intubation. These discussions were witnessed by several ED staff members as patient was during conversations becoming very aggressive. Advanced Care Planning Face to Face Time: 16 minutes. Charges/Coding Visit Charges Inpatient E&M: 20975 Init Hosp L3 Procedures Hospitalists Procedures: 19373 Advncd Care Plan 30 Min
--- NOTE | 2023-08-13 23:40 | EKG12_ITS ---
Test Reason : SOB Blood Pressure : / mmHG Vent. Rate : 116 BPM Atrial Rate : 116 BPM P-R Int : 120 ms QRS Dur : 074 ms QT Int : 322 ms P-R-T Axes : 081 074 081 degrees QTc Int : 447 ms Sinus tachycardia with Premature supraventricular complexes Otherwise normal ECG Abberant conduction Confirmed by Castro Patiño ([id number]), commercial production editor SEJAL KRAFT ([id number]) on 08/15/2023 11:05:53 AM Referred By: Confirmed By:Castro Patiño
--- NOTE | 2023-08-13 23:42 | EDS_ITS ---
HPI History of Present Illness Chief Complaint: Shortness of Breath Informant: patient Narrative Narrative: Patient returns soon after leaving the ED AGAINST MEDICAL ADVICE, due to being extremely dyspneic, coughing up some blood out in the parking lot while waiting for a taxi, and having a headache and feeling very cold. He came immediately back into the ER, and although his fingers are very cold, pulse oximetry suggesting that he is in the high 60% on room air, he is not on home oxygen. Is been having respiratory illness lately, with productive cough and dyspnea. He left before all the test results were back, even though we were trying to get him admitted regardless given his COPD exacerbation and hypoxemia. He does not have any new symptoms at this time. He is apologetic and regretful for leaving earlier. Apparently he was admitted to the hospital for about 6 days, and yesterday he left the hospital AGAINST MEDICAL ADVICE while requiring 9 L nasal cannula. He came back by EMS a little earlier. PFSH PFSH Medical History Alcohol abuse Asthma COPD (chronic obstructive pulmonary disease) History of throat cancer Hypertension Severe malnutrition Tobacco use Home Medications NK 08/07/23 [History Last Taken Unknown] Allergy/AdvReac Type Severity Reaction Status Date / Time No Known Allergies Allergy Verified 08/13/23 21:05 Family History (Updated 08/13/23 @ 23:[address] Loren Marte MD) Mother No problems noted. Father No problems noted. Surgical History (Updated 08/13/23 @ 23:[address] Loren Marte MD) History of throat surgery Social History household members: none housing: other current occupational status: employed Smoking Status: Current every day smoker tobacco type: cigarettes Smoking packs per day: 1 Smoking cigarettes per day: 20.0 how long ago did patient quit smoking: Patient notes he quit during recent admission 08/11/23. alcohol intake: current alcohol intake frequency: 3 or more drinks per day details: ~ 5 shots hard liquor, several beers daily substance use type: does not use ROS ROS ED Constitutional Constitutional ED: Reports malaise and weakness; Denies chills or fever(s) Eyes Eyes: Denies change in vision or diplopia ENT ENT ED: Denies rhinorrhea or sore throat Cardiovascular Cardiovascular: Denies chest pain, palpitations or radiating jaw, neck or arm pain Respiratory/Chest Respiratory/Chest: Reports chest tightness, cough and dyspnea Gastrointestinal Gastrointestinal: Denies abdominal pain, diarrhea, nausea or vomiting Genitourinary Genitourinary ED: Denies dysuria or hematuria Musculoskeletal Musculoskeletal: Denies back pain or neck pain Integumentary Denies abscess or rash Neurologic Neurologic: Reports headache(s); Denies paresthesias or weakness Psychiatric Psychiatric: Reports anxiety; Denies suicidal ideation or suicidal thoughts EXAM Physical Exam Const Vital Signs: 08/13/23 23:23 Temperature 95.6 F L Temperature Source Temporal Blood Pressure 155/88 H Blood Pressure Mean 110 Positive well nourished and well developed General Appearance ED: well developed and NAD HEENT Reports moist mucous membranes normocephalic and atraumatic Eyes PERRL and EOMs intact bilaterally Neck full ROM, supple and no JVD Resp Resp Narrative: Mildly tachypneic but in no respiratory distress. Speaking in full sentences. Diffusely diminished throughout, prolonged expiratory phase but otherwise clear. Cardio regular rate, regular rhythm and no murmurs GI non-tender and non-distended Auscultation: normoactive bowel sounds Palpation: soft Back/Spine no CVA tenderness General Back: other FROM Extremity normal to inspection General Extremety ED: Negative for edema, pulses abnormal or tenderness General Extremity: Negative for edema or pulses abnormal Neuro oriented x3, CN's II-XII intact bilaterally and no sensory deficits noted Sensorium / Orientation: awake and alert Motor Exam: strength 5/5 throughout Skin no rashes or lesions noted and no wounds MDM MDM MDM Narrative Medical decision making narrative: I reviewed the patient's recent labs and chest x-ray. 1 view chest x-ray my interpretation is consistent with hyperexpansion COPD in addition to patchy infiltrates which radiology called. To cover him for healthcare associated pneumonia since he was just recently an inpatient, Zosyn and vancomycin were started. He already received Solu-Medrol 80 mg a couple hours ago. He was given some nebulizer treatments which helped his breathing some, and oxygen. His 6 L nasal cannula was upgraded to a 40% Ventimask, his fingers are cold and so I had respiratory attempt an ABG but was only able to get venous due to the patient refusing further attempts for arterial source, it shows a pH of 7.31 and a pCO2 of 61. His pulse ox appears to be in the high 80s/low 90s but the waveform was poor due to cold fingers were still working the warm notes up. He is refusing repeat EKG right now because he wants to stay covered in order to stay warm. Pulse ox reading better now, 97% on the 40% Ventimask. Blood pressure 82/70, IV fluid bolus ordered. Patient keenly alert. Does not require mechanical ventilation at this time. EKG obtained and interpreted by myself, no acute injury pattern, just a couple of PACs. Before bolus even fpc completed, blood pressure 112/80. Stable for PCU on my judgment. History & Record Review Additional record(s) reviewed:: Prior outpatient record and Prior ED visit Lab Data Attestation: I reviewed the patient's lab results. Labs: Laboratory Results - last 24 hr 08/14/23 00:20 Troponin I High Sens 37 ABG Data ABG results: ABG 08/14/23 00:41 Specimen Type PARTH Sample Site Not entered O2 % 40.0 VBG pH 7.31 L VBG pO2 22 L VBG HCO3 31 H VBG Total CO2 33 VBG O2 Sat (Calc) 32 L VBG Base Excess 5 H POC Mix VBG pCO2 Pt Tmp 61.3 H O2 Delivery Device Venti Mask Rhythm Strip Rhythm Strip: Sinus Tach Rate: 110 Ectopy: None EKG Initial EKG: Attestation: I personally reviewed and interpreted this EKG as follows: Interpretation: Sinus Rhythm and No Acute Injury Pattern Comments: PACs Prior EKG tracings: available for review Prior: Unchanged Management Discussion w/another healthcare provider: Hospitalist Discharge Plan Dx/Rx/DC Orders Clinical Impression: Acute exacerbation of chronic obstructive pulmonary disease (COPD), Pneumonia, Acute respiratory failure with hypoxia and hypercapnia Disposition Disposition: Acute Care Hospital [facility]
[2023-08-13 23:56] VITALS: PULSE 114; RESP 17
[2023-08-13] MEDS: Ipratropium/Albuterol Sulfate 3 ML AMPUL.NEB INHALATION (23:56)
[2023-08-13] MEDS: Albuterol 2.5 MG/3 ML VIAL.NEB. INHALATION (23:56)
[2023-08-14] VITALS (36 sets, daily range): BP systolic 82–149; BP diastolic 66–96; PULSE 97–121; RESP 16–31; TEMP 35.6–37.3; O2SAT 77–99; BMI 17.2
[2023-08-14] MEDS: Acetaminophen 500 MG Tablet 1000 MG PO (00:41)
[2023-08-14] MEDS: Piperacil/Tazobactam 4.5 GM in 0.9% Normal Saline (100mL MB+) 100 ML IV (00:42)
[2023-08-14 00:45] LABS: Blood Gas Specimen Type VEN; O2 Delivery Device Venti Mask; SITE Not entered; VBG BASE EXCESS 5 mmol/L (-1.0-3.5); VBG Bicarbonate 31 mmol/L (22-26); VBG PO2 22 mmHg (25-40); VBG SO2 32 % (50-70); VBG TCO2 33 mmol/L (23-33); VBG pCO2 61.3 mmHg (41-51); VBG pH 7.31 (7.32-7.42)
[2023-08-14 00:59] LABS: Troponin-I HS 37 pg/mL (3.0-78.0)
[2023-08-14] MEDS: 0.9% Normal Saline (1000mL) 1,000 ML 999 ML IV (01:42)
[2023-08-14] MEDS: Vancomycin IV 1,000 MG/200 ML BAG 200 MG IV ×2 (02:21→13:58)
[2023-08-14] MEDS: 0.9% Normal Saline (1000mL) 1,000 ML 100 ML IV ×2 (04:14→21:21)
--- NOTE | 2023-08-14 04:38 | PCM.RX.CS ---
Consult Antibiotic Management Pharmacy has been consulted to manage selected antibiotic: Vancomycin Type of Intervention Type of Consult: New start Suspected Infection Suspected Infection: Pneumonia Dosing Weight Weight used for dosin.1 kg Estimated Creatinine Clearance Estimated Creatinine Clearance: 83 Goal Trough Goal Trough: 15-20 mcg/mL Pharmacy Plan for Drug Dosing Pharmacy Plan for Drug Dosing: Pharmacy Service will continue to monitor and adjust dosing as required. Follow-Up Labs Follow-Up Labs: Trough: Vancomycin Date/Time Labs Ordered Labs to be done on [date and time ordered]: 08/15/23 @1400
[2023-08-14] MEDS: Piperacil/Tazobactam 3.375 GM in 0.9% Normal Saline (50mL MB+) 50 ML IV ×3 (05:52→22:02)
[2023-08-14] MEDS: LORazepam 1 MG Tablet 2 MG PO (06:06)
[2023-08-14 07:08] LABS: Absolute Neutrophil Count 11.1 X10^3/uL (2.0-7.7); Basophil# 0.04 X10^3/uL; Basophil% 0.3 % (0-1); Hematocrit 27.4 % (40-54); Lymphocyte % 3.2 % (19-41); Mean Corp Hgb Conc 32.8 g/dL (32-36); Mean Corpuscular Volume 103.4 fL (80-94); Mean Platelet Vol. 10.3 fl (6.2-12.0); Monocyte# 0.89 X10^3/uL; Monocyte% 7.1 % (0-10); NRBC Flagged by Analyzer 0 % (0-5); Neutrophil # 11.14 X10^3/uL (2.7-7.7); Neutrophil % 88.9 % (47-70); POSITIVE DIFFERENTIAL YES; Platelet Count 592 K/mm3 (150-450); RBC Distribution Width CV 16.1 % (11.6-14.6); RBC Distribution Width SD 61.7 fl (35.1-43.9); Red Blood Count 2.65 M/mm3 (4.6-6.2); White Blood Count 12.5 K/mm3 (4.4-11.0)
[2023-08-14 07:13] LABS: Differential Indicated SCAN CRITERIA MET
[2023-08-14 09:02] LABS: ALB/GLOB Ratio 0.6 RATIO (0.9-2.4); AST(SGOT) 22 U/L (15-37); Alanine Aminotransfer ALT/SGPT 28 U/L (16-61); Albumin, Serum 1.8 g/dL (3.2-5.0); Alkaline Phosphatase 82 U/L (45-117); Anion Gap 6 (5-15); BUN 68 mg/dL (7-18); BUN/Creat Ratio 85.4 RATIO (10-20); Calcium,Total 7.5 mg/dL (8.5-10.1); Chloride 102 mmol/L (98-107); EST Glomerular Filtration Rate 104 mL/min (>60); Est Glom Filt Rate - Afr Amer 125 mL/min (>60); Estimated Creatinine Clearance 79.56 ml/min; Ferritin 262 ng/mL (26-388); Globulin 3.2 g/dL (2.2-4.2); Glucose 144 mg/dL (74-106); Iron 79 ug/dL (65-175); Iron Binding Capacity,Total 252 ug/dL (250-450); PERCENT IRON SATURATION 31.3 % (15.0-55.0); Potassium 4.2 mmol/L (3.5-5.1); Sodium Level 138 mmol/L (136-145)
--- NOTE | 2023-08-14 09:05 | CASEMGMT ---
LONI faxed a letter to [facility] notifying them that patient is in the hospital and will not be present for his court hearing today. LONI also called [place] at [facility] and left her a voice mail notifying her that patient is back in the hospital. Estelita MCKINNON
[2023-08-14 09:37] LABS: Vitamin B12 1135 pg/mL (211-911)
[2023-08-14] MEDS: Pantoprazole Sodium 40 MG in 0.9% Normal Saline (100mL MB+) 100 ML 330 MG IV ×2 (10:29→21:25)
--- NOTE | 2023-08-14 11:03 | CASEMGMT ---
TORIN CHENG readmission note: Index admission: Admitted 08/06 w/Influenza A, Acute Exac of COPD. Plan was for pt to d/c to [facility] and pre-cert was pending. Pt left AMA 08/11. (Pre-cert was obtained 08/12 after pt left AMA). Pt was requiring 9 L/M O2 @ discharge, but left w/out O2 d/t left AMA and did not have any home O2. ED visit: 08/13/23 for SOB. Pt was brought in by EMS and sats had been in 50's to 70's RA. Pt was to be admitted to [facility], but pt left ED AMA w/out O2 again. Current admission: 08/13/23. Pt returned to ED shortly after walking out and apologetic. Sats 60% RA. Admitted 08/12 w/hypoxia and PNA. Michelle BSN TORIN CM
[2023-08-14] MEDS: Ipratropium/Albuterol Sulfate 3 ML AMPUL.NEB INHALATION ×2 (11:22→20:34)
[2023-08-14 13:24] LABS: M R Staph aureus DNA By PCR Negative (Negative); Probe Check PASS; Specimen Processing Control PASS
[2023-08-14] MEDS: 0.9% Saline Lock 10 ML Syringe IV (13:59)
--- NOTE | 2023-08-14 19:04 | PN.HOSP_ITS ---
Reason for Visit Reason for Visit: Diagnoses Pneumonia, unspecified organism (08/13/23) Acute respiratory failure with hypoxia (08/13/23) Acute respiratory failure with hypercapnia (08/13/23) Subjective Subjective Patient was seen and examined today, he is resting quietly, he was given Ativan this morning and he is hard to arouse. He does not seem in any distress, his friend was in the room today and I talked with him extensively about his medical care, patient is now a DNR CC arrest without intubation. I stressed that the patient will have to go to an extended care facility for short-term rehab services., The patient's friend knows this. Patient's friend also states that he is willing to go to his trailer and clean up and take his cat out. Objective Data Objective Data Vital Signs: Vital Signs Temp Pulse Resp BP Pulse Ox O2 Del Method O2 Flow Rate 96.8 F L 113 H 22 H 127/96 H 96 Venturi Mask 8 08/14/23 16:30 08/14/23 16:30 08/14/23 16:30 08/14/23 16:30 08/14/23 16:30 08/14/23 16:44 08/14/23 16:44 Oxygen Flow Rate (L/min) 8 Oxygen Delivery Method Venturi Mask Weight: 61.1 kg Body Mass Index (BMI) 17.2 Intake & Output: Intake and Output for Last 24 Hours 08/12/23 08/13/23 08/14/23 23:59 23:59 23:59 Intake Total 2401.67 / 2401.67 Output Total 750 / 750 Balance 1651.67 / 1651.67 Medical Nutrition Assessment Dietitian: Malnutrition Criteria Met Start: 08/14/23 12:43 Freq: Status: Active Protocol: Document 08/14/23 12:44 LO (Rec: 08/14/23 12:44 LO [id number]) Nutrition Malnutrition Evidence of Malnutrition Exists Yes Malnutrition (severe): Chronic Evidenced By Suboptimal Energy Intake ( Severe),Weight Loss (Severe) Clinical Problem Chronic Disease or Condition Related Malnutrition Etiology severe related to suboptimal appetite Signs/Symptoms as evidenced by estimated PO intakes <75% of needs for >1 month and 43.7lbs (24.4%) weight loss in 5 months Status Active Problem Recommendation Dietitian Recommendations/Changes Continue Regular diet to optimize oral intakes with texture/consistency modifications per MD or MANAGER CUSTOM. RD will discontinue EPHP supplements. Will order 118mL Ensure Compact 4x daily with medpass to provide supplemental energy . Lab / Micro Data 08/14/23 06:10 08/14/23 06:10 Labs: Laboratory Results - last 24 hr 08/14/23 00:20: Troponin I High Sens 37 08/14/23 04:03: MRSA (PCR) Negative 08/14/23 06:10: WBC 12.5 H, RBC 2.65 L, Hgb 9.0 L, Hct 27.4 L, MCV 103.4 H, MCH 34.0 H, MCHC 32.8, RDW Std Deviation 61.7 H, RDW Coeff of Tony 16.1 H, Plt Count 592 H, MPV 10.3, Immature Gran % (Auto) 0.500, Neut % (Auto) 88.9 H, Lymph % (Auto) 3.2 L, Karnes % (Auto) 7.1, Eos % (Auto) 0.0, Baso % (Auto) 0.3, Absolute Neuts (auto) 11.1 H, Absolute Lymphs (auto) 0.40 L, Nucleated RBC % 0, Sodium 138, Potassium 4.2, Chloride 102, Carbon Dioxide 30.0, Anion Gap 6, BUN 68 H, Creatinine 0.80, Estim Creat Clear Calc 79.56, Est GFR (MDRD) Af Amer 125, Est GFR (MDRD) Non-Af 104, BUN/Creatinine Ratio 85.4 H, Glucose 144 H, Calcium 7.5 L , Iron 79, TIBC 252, Iron Saturation 31.3, Ferritin 262, Total Bilirubin 0.50, AST 22, ALT 28, Alkaline Phosphatase 82, Total Protein 5.0 L, Albumin 1.8 L, Globulin 3.2, Albumin/Globulin Ratio 0.6 L, Vitamin B12 1135 H, Folate 8.50 Micro: Microbiology 08/14/23 15:37 Mucosa - Nasopharyngeal Respiratory Panel (PCR) - Final 08/14/23 07:16 Sputum, Expectorated/Coughed Gram Stain - Final 08/14/23 07:16 Urine, Clean Catch Legionella Antigen - Final 08/14/23 07:16 Urine, Clean Catch Streptococcus pneumoniae Antigen (M - Final ABG Data ABG results: ABG 08/14/23 00:41 Specimen Type PARTH Sample Site Not entered O2 % 40.0 VBG pH 7.31 L VBG pO2 22 L VBG HCO3 31 H VBG Total CO2 33 VBG O2 Sat (Calc) 32 L VBG Base Excess 5 H POC Mix VBG pCO2 Pt Tmp 61.3 H O2 Delivery Device Venti Mask Rhythm Strip Rhythm Strip: Sinus Tach Rate: 110 Ectopy: None Physical Exam Const no apparent distress Constitutional Narrative: Patient is somnolent, he responds to painful stimuli but not to verbal stimuli General Appearance: well developed HEENT normocephalic, head/scalp atraumatic and moist oral mucous membranes Eyes PERRL, EOMs intact bilaterally and conjunctivae normal Neck supple, no JVD, thyroid normal and no carotid bruits General: trachea midline Resp normal respiratory effort, no retractions, no use of accessory muscles and clear to auscultation bilaterally Auscultation: Negative for rales, rhonchi or wheezes Cardio regular rate, regular rhythm, S1 normal heart sound, S2 normal heart sound, no murmurs, no rub and no gallops GI normal to inspection, nondistended, normoactive bowel sounds, soft to palpation and non-distended Extremity no clubbing, cyanosis or edema Skin no rashes or lesions noted General Skin Exam: no breakdown Neuro CN's II-XII intact bilaterally Neuro Narrative: Patient is somnolent, he responds to painful stimuli Psych Psych Narrative: Patient is somnolent, he responds to painful stimuli Assessment & Plan Assessment/Plan (1) Acute respiratory failure with hypoxia and hypercapnia: PLAN: Plan 1. Acute combined respiratory failure-patient is now on 8 L of oxygen via Venturi mask, I talked at length with his friend who was in the room at the time my examination. #2 community-acquired pneumonia-patient will remain on IV antibiotics, I have elected to stop his vancomycin and keep him on Zosyn #3 chronic aspiration due to oropharyngeal dysphagia-this is chronic in nature, patient's friend states that patient would not want a feeding tube and he would not stop oral intake, I do not feel the patient needs to see speech therapy at this time, at his last admission he was seen by speech therapy and it was recommended that the patient have a mechanical soft thin liquid diet. Today the patient is somnolent #4 somnolence-patient is lethargic and somnolent this morning, he received IV Ativan, I have stopped this medication, I do not believe the patient is an active alcohol withdrawal. #5 chronic alcoholism-according to the patient's friend, patient does not drink large amounts of alcohol at 1 setting, it is possible he could drink alcohol throughout the day however. I will watch for any signs of alcohol withdrawal. #6 chronic severe protein and caloric malnutrition as evidenced by estimated p.o. intake less than 75% of needs for more than 1 month and approximately 50 pound weight loss in 5 months-patient's diet is regular, Ensure compact 4 times a day with med Pass is being given to the patient, an appetite stimulant was recommended if the patient's intake remains poor. #7 oropharyngeal dysphagia with chronic aspiration-complicates care, medical course, recovery, and prognosis Patient is a DNR CC arrest without intubation. Total clinical time spent by myself addressing the patient's medical issues, reviewing all of his data, and collaborating with patient's care team: 35 minutes Charges/Coding Visit Charges Inpatient E&M: 11136 Subs Hosp L2
[2023-08-15] VITALS (24 sets, daily range): BP systolic 98–144; BP diastolic 62–103; PULSE 91–115; RESP 19–33; TEMP 35.9–36.8; O2SAT 91–100; BMI 17.4
[2023-08-15] MEDS: Piperacil/Tazobactam 3.375 GM in 0.9% Normal Saline (50mL MB+) 50 ML IV ×3 (05:14→21:10)
[2023-08-15] MEDS: Ipratropium/Albuterol Sulfate 3 ML AMPUL.NEB INHALATION ×2 (07:16→19:45)
[2023-08-15] MEDS: Thiamine Hydrochloride 100 MG Tablet PO (09:07)
[2023-08-15] MEDS: Folic Acid 1 MG Tablet PO (09:07)
[2023-08-15] MEDS: Multivitamins,Ther W-Minerals Tablet 1 TABLET PO (09:07)
[2023-08-15] MEDS: Pantoprazole Sodium 40 MG in 0.9% Normal Saline (100mL MB+) 100 ML 330 MG IV ×2 (10:32→21:01)
[2023-08-15] MEDS: 0.9% Normal Saline (1000mL) 1,000 ML 100 ML IV ×2 (12:16→22:16)
--- NOTE | 2023-08-15 18:16 | PN.HOSP_ITS ---
Reason for Visit Reason for Visit: Diagnoses Pneumonia, unspecified organism (08/13/23) Acute respiratory failure with hypoxia (08/13/23) Acute respiratory failure with hypercapnia (08/13/23) Subjective Subjective Patient was seen and examined today, he remains on oxygen at 8 L/min, I talked him briefly about going to a custodial facility, he was not against this. Patient has expiratory rhonchi bilaterally Objective Data Objective Data Vital Signs: Vital Signs Temp Pulse Resp BP Pulse Ox O2 Del Method O2 Flow Rate 98.1 F 115 H 26 H 120/81 H 96 Venturi Mask 8 08/15/23 15:18 08/15/23 15:18 08/15/23 15:18 08/15/23 15:18 08/15/23 15:18 08/15/23 15:18 08/15/23 15:18 FiO2 40 08/15/23 07:16 Oxygen Flow Rate (L/min) 8 Oxygen Delivery Method Venturi Mask Weight: 61.6 kg Body Mass Index (BMI) 17.4 Intake & Output: Intake and Output for Last 24 Hours 08/13/23 08/14/23 08/15/23 23:59 23:59 23:59 Intake Total 2561.67 / 3041.67 2570 / 2570 Output Total 750 / 1350 1550 / 1550 Balance 1811.67 / 1691.67 1020 / 1020 Medical Nutrition Assessment Dietitian: Malnutrition Criteria Met Start: 08/14/23 12:43 Freq: Status: Active Protocol: Document 08/14/23 12:44 LO (Rec: 08/14/23 12:44 [id number]) Nutrition Malnutrition Evidence of Malnutrition Exists Yes Malnutrition (severe): Chronic Evidenced By Suboptimal Energy Intake ( Severe),Weight Loss (Severe) Clinical Problem Chronic Disease or Condition Related Malnutrition Etiology severe related to suboptimal appetite Signs/Symptoms as evidenced by estimated PO intakes <75% of needs for >1 month and 43.7lbs (24.4%) weight loss in 5 months Status Active Problem Recommendation Dietitian Recommendations/Changes Continue Regular diet to optimize oral intakes with texture/consistency modifications per MD or ELECTRICIAN MARINE. RD will discontinue EPHP supplements. Will order 118mL Ensure Compact 4x daily with medpass to provide supplemental energy . Lab / Micro Data 08/14/23 06:10 03/20/24 06:10 Micro: Microbiology 08/14/23 07:16 Sputum, Expectorated/Coughed Gram Stain - Final 08/14/23 07:16 Sputum, Expectorated/Coughed Respiratory Culture - Preliminary Presumptive C albicans 08/14/23 15:37 Mucosa - Nasopharyngeal Respiratory Panel (PCR) - Final 08/14/23 07:16 Urine, Clean Catch Legionella Antigen - Final 08/14/23 07:16 Urine, Clean Catch Streptococcus pneumoniae Antigen (M - Final Rhythm Strip Rhythm Strip: Sinus Tach Rate: 110 Ectopy: None Physical Exam Const alert and no apparent distress Constitutional Narrative: Patient appears older than stated age General Appearance: cooperative, well kempt and well developed Orientation / Consciousness: awake, oriented to person and oriented to place HEENT normocephalic and head/scalp atraumatic Mouth: dry mucous membranes Eyes PERRL, EOMs intact bilaterally and conjunctivae normal Neck supple, no JVD, thyroid normal and no carotid bruits General: trachea midline Resp normal respiratory effort, no retractions and no use of accessory muscles Resp Narrative: Expiratory rhonchi bilaterally Auscultation: rhonchi; Negative for rales or wheezes Cardio regular rate, regular rhythm, S1 normal heart sound, S2 normal heart sound, no murmurs, no rub and no gallops GI normal to inspection, nondistended, normoactive bowel sounds, soft to palpation, non-tender and non-distended Extremity no clubbing, cyanosis or edema Skin no rashes or lesions noted General Skin Exam: no breakdown Neuro CN's II-XII intact bilaterally, moves all extremities, no focal motor deficits and no sensory deficits noted Sensorium / Orientation: awake, alert, oriented to person and oriented to place Speech: speech normal Psych affect normal Assessment & Plan Assessment/Plan (1) Acute respiratory failure with hypoxia and hypercapnia: PLAN: Plan 1. 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 I will watch for any signs of alcohol withdrawal. #6 chronic severe protein and caloric malnutrition as evidenced by estimated p.o. intake less than 75% of needs for more than 1 month and approximately 50 pound weight loss in 5 months-patient's diet is regular, Ensure compact 4 times a day with med Pass is being given to the patient, an appetite stimulant was recommended if the patient's intake remains poor. Patient is a DNR CC arrest without intubation. Total clinical time spent by myself addressing the patient's medical issues, reviewing all of his data, and collaborating with patient's care team: 35 minutes Charges/Coding Visit Charges Inpatient E&M: 28611 Subs Hosp L2
[2023-08-15] MEDS: MELATONIN 3 MG TABLET PO (21:09)
[2023-08-15] MEDS: Acetaminophen 325 MG Tablet 650 MG PO (21:10)
[2023-08-16] VITALS (12 sets, daily range): BP systolic 100–135; BP diastolic 64–80; PULSE 82–104; RESP 20–26; TEMP 36.6–36.9; O2SAT 95–100; BMI 17.4
[2023-08-16] MEDS: Piperacil/Tazobactam 3.375 GM in 0.9% Normal Saline (50mL MB+) 50 ML IV ×3 (05:14→23:27)
[2023-08-16] MEDS: Ipratropium/Albuterol Sulfate 3 ML AMPUL.NEB INHALATION ×4 (07:18→20:00)
--- NOTE | 2023-08-16 10:09 | CASEMGMT ---
SW met with patient. Re-introduced self and role at [facility]. Patient is agreeable to try going to [facility] again. SW will ask Oliva to send a referral. Plan: SNF pending accepting facility and pre-cert. Estelita MCKINNON
[2023-08-16] MEDS: 0.9% Normal Saline (1000mL) 1,000 ML 100 ML IV (10:40)
--- NOTE | 2023-08-16 10:46 | CASEMGMT ---
Discharge Planning Referral sent via [facility] to [facility]. Oliva Johnson, Discharge Planning Asst.
[2023-08-16] MEDS: Pantoprazole Sodium 40 MG in 0.9% Normal Saline (100mL MB+) 100 ML 330 MG IV ×2 (10:49→20:15)
[2023-08-16] MEDS: Multivitamins,Ther W-Minerals Tablet 1 TABLET PO (10:51)
[2023-08-16] MEDS: Folic Acid 1 MG Tablet PO (10:51)
[2023-08-16] MEDS: Thiamine Hydrochloride 100 MG Tablet PO (10:51)
--- NOTE | 2023-08-16 12:53 | CASEMGMT ---
[facility] accepted patient. Pre-cert not yet started due to amount of O2 patient requires. Estelita Ferrari [employer]
--- NOTE | 2023-08-16 17:21 | PN.HOSP_ITS ---
Reason for Visit Reason for Visit: Diagnoses Pneumonia, unspecified organism (08/13/23) Acute respiratory failure with hypoxia (08/13/23) Acute respiratory failure with hypercapnia (08/13/23) Subjective Subjective Patient seen and examined today, initially this morning he was on 8 L but his oxygen requirement this afternoon is much lower at 4 L. Patient had a discussion with nursing today and told them that he would be in favor of a PEG tube it was necessary, I have elected to make him n.p.o. and have speech therapy see him, I had multiple discussions with speech therapy over this week however and they indicated that a PEG tube would be needed because the patient is chronically aspirating. I contacted gastroenterology today and it will be scheduled for tomorrow. I talked to the patient's friend by phone (Salinas Salazar) and let him know what the plan was for the patient's care. Objective Data Objective Data Vital Signs: Vital Signs Temp Pulse Resp BP Pulse Ox O2 Del Method O2 Flow Rate 98.4 F 104 H 24 H 118/66 98 High Flow 6 08/16/23 15:30 08/16/23 15:48 08/16/23 15:48 08/16/23 15:30 08/16/23 15:30 08/16/23 15:30 08/16/23 15:30 FiO2 40 08/16/23 10:02 Oxygen Flow Rate (L/min) 6 Oxygen Delivery Method High Flow Weight: 61.6 kg Body Mass Index (BMI) 17.4 Intake & Output: Intake and Output for Last 24 Hours 08/14/23 08/15/23 08/16/23 23:59 23:59 23:59 Intake Total 2561.67 / 3041.67 3730 / 4410 2810.00 / 2810.00 Output Total 750 / 1350 1550 / 2050 1300 / 1300 Balance 1811.67 / 1691.67 2180 / 2360 1510.00 / 1510.00 Medical Nutrition Assessment Dietitian: Malnutrition Criteria Met Start: 08/14/23 12:43 Freq: Status: Active Protocol: Document 08/14/23 12:44 LO (Rec: 08/14/23 12:44 [id number]) Nutrition Malnutrition Evidence of Malnutrition Exists Yes Malnutrition (severe): Chronic Evidenced By Suboptimal Energy Intake ( Severe),Weight Loss (Severe) Clinical Problem Chronic Disease or Condition Related Malnutrition Etiology severe related to suboptimal appetite Signs/Symptoms as evidenced by estimated PO intakes <75% of needs for >1 month and 43.7lbs (24.4%) weight loss in 5 months Status Active Problem Recommendation Dietitian Recommendations/Changes Continue Regular diet to optimize oral intakes with texture/consistency modifications per MD or PROTOTYPE ASSEMBLER [employer]. RD will discontinue EPHP supplements. Will order 118mL Ensure Compact 4x daily with medpass to provide supplemental energy . Lab / Micro Data 08/14/23 06:10 08/14/23 06:10 Micro: Microbiology 08/14/23 07:16 Sputum, Expectorated/Coughed Gram Stain - Final 08/14/23 07:16 Sputum, Expectorated/Coughed Respiratory Culture - Final Presumptive C albicans 08/14/23 15:37 Mucosa - Nasopharyngeal Respiratory Panel (PCR) - Final 08/14/23 07:16 Urine, Clean Catch Legionella Antigen - Final 08/14/23 07:16 Urine, Clean Catch Streptococcus pneumoniae Antigen (M - Final Rhythm Strip Rhythm Strip: Sinus Tach Rate: 110 Ectopy: None Physical Exam Narrative alert and no apparent distress Constitutional Narrative: Patient appears older than stated age General Appearance: cooperative, well kempt and well developed Orientation / Consciousness: awake, oriented to person and oriented to place HEENT normocephalic and head/scalp atraumatic Mouth: dry mucous membranes Eyes PERRL, EOMs intact bilaterally and conjunctivae normal Neck supple, no JVD, thyroid normal and no carotid bruits General: trachea midline Resp normal respiratory effort, no retractions and no use of accessory muscles Resp Narrative: Expiratory rhonchi bilaterally Auscultation: rhonchi; Negative for rales or wheezes Cardio regular rate, regular rhythm, S1 normal heart sound, S2 normal heart sound, no murmurs, no rub and no gallops GI normal to inspection, nondistended, normoactive bowel sounds, soft to palpation, non-tender and non-distended Extremity no clubbing, cyanosis or edema Skin no rashes or lesions noted General Skin Exam: no breakdown Neuro CN's II-XII intact bilaterally, moves all extremities, no focal motor deficits and no sensory deficits noted Sensorium / Orientation: awake, alert, oriented to person and oriented to place Speech: speech normal Psych affect normal Assessment & Plan Assessment/Plan (1) Acute respiratory failure with hypoxia and hypercapnia: PLAN: Plan 1. Acute combined respiratory failure-patient is now on 8 L of oxygen via Venturi mask, continue to wean oxygen for possible #2 Aspiration pneumonia due to oropharyngeal dysphagia-patient will remain on IV antibiotics, I have elected to stop his vancomycin and keep him on Zosyn #3 chronic aspiration due to oropharyngeal dysphagia-this is chronic in nature, complicates care, medical course, recovery, and prognosis, patient will have a PEG tube inserted tomorrow, he is n.p.o. 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 I will watch for any signs of alcohol withdrawal. #6 chronic severe protein and caloric malnutrition as evidenced by estimated p.o. intake less than 75% of needs for more than 1 month and approximately 50 pound weight loss in 5 months-patient's diet is regular, Ensure compact 4 times a day with med Pass is being given to the patient, an appetite stimulant was rec ommended if the patient's intake remains poor. Patient is a DNR CC arrest without intubation. Total clinical time spent by myself addressing the patient's medical issues, reviewing all of his data, and collaborating with patient's care team: 35 minutes Charges/Coding Visit Charges Inpatient E&M: 43195 Subs Hosp L2
[2023-08-16] MEDS: Acetaminophen 325 MG Tablet 650 MG PO (20:15)
[2023-08-16] MEDS: MELATONIN 3 MG TABLET PO (20:15)
[2023-08-17] VITALS (32 sets, daily range): BP systolic 116–163; BP diastolic 62–109; PULSE 72–113; RESP 15–30; TEMP 36.1–37.1; O2SAT 90–100; BMI 18.1
[2023-08-17] MEDS: Piperacil/Tazobactam 3.375 GM in 0.9% Normal Saline (50mL MB+) 50 ML IV ×3 (05:17→21:24)
[2023-08-17 05:25] LABS: Absolute Lymphocyte Count 0.85 X10^3/uL (0.83-4.51); Absolute Neutrophil Count 6.8 X10^3/uL (2.0-7.7); Basophil# 0.01 X10^3/uL; Basophil% 0.1 % (0-1); Eosinophil# 0.01 X10^3/uL; Eosinophils% 0.1 % (0-5); Hematocrit 17.6 % (40-54); Hemoglobin 5.8 g/dL (13.0-16.5); Lymphocyte # 0.85 X10^3/ul (0.83-4.51); Lymphocyte % 9.8 % (19-41); Mean Corpuscular Hgb 34.1 pg (27.0-32.0); Mean Corpuscular Volume 103.5 fL (80-94); Mean Platelet Vol. 9.1 fl (6.2-12.0); Monocyte# 0.97 X10^3/uL; Monocyte% 11.2 % (0-10); NRBC Flagged by Analyzer 0 % (0-5); Neutrophil # 6.76 X10^3/uL (2.7-7.7); Neutrophil % 78.1 % (47-70); POSITIVE COUNT YES; Platelet Count 461 K/mm3 (150-450); RBC Distribution Width CV 15.8 % (11.6-14.6); RBC Distribution Width SD 59.4 fl (35.1-43.9); White Blood Count 8.7 K/mm3 (4.4-11.0)
[2023-08-17 05:30] LABS: Differential Indicated SCAN CRITERIA MET
[2023-08-17 05:38] LABS: International Normalized Ratio 1.1; Prothrombin Time (Protime)PT. 14.4 SECONDS (11.7-14.9)
[2023-08-17 05:42] LABS: AST(SGOT) 16 U/L (15-37); Alanine Aminotransfer ALT/SGPT 23 U/L (16-61); Albumin, Serum 1.8 g/dL (3.2-5.0); Alkaline Phosphatase 75 U/L (45-117); Anion Gap 4 (5-15); BUN 15 mg/dL (7-18); BUN/Creat Ratio 25.7 RATIO (10-20); Bilirubin, Direct 0.16 mg/dL (0.00-0.30); Calcium,Total 7.8 mg/dL (8.5-10.1); Chloride 104 mmol/L (98-107); Creatinine, Serum 0.58 mg/dL (0.70-1.30); EST Glomerular Filtration Rate 148 mL/min (>60); Est Glom Filt Rate - Afr Amer 179 mL/min (>60); Estimated Creatinine Clearance 83.72 ml/min; Globulin 3.1 g/dL (2.2-4.2); Glucose 87 mg/dL (74-106); Potassium 4.1 mmol/L (3.5-5.1); Protein, Total 4.9 g/dL (6.4-8.2); Sodium Level 140 mmol/L (136-145)
--- NOTE | 2023-08-17 05:55 | EKG12_ITS ---
Test Reason : PRE-OP Blood Pressure : / mmHG Vent. Rate : 071 BPM Atrial Rate : 071 BPM P-R Int : 122 ms QRS Dur : 084 ms QT Int : 398 ms P-R-T Axes : 075 075 084 degrees QTc Int : 432 ms Normal sinus rhythm Normal ECG When compared with ECG of 14-AUG-2023 01:07, Aberrant conduction is no longer Present Confirmed by MADONNA WILD, KWAME ([id number]), news editor SEJAL KRAFT ([id number]) on 08/21/2023 1:34:12 PM Referred By: ISHMAEL Confirmed By:KWAME PEACOCK MD
[2023-08-17 06:11] LABS: Differential Comment SCANNED
--- NOTE | 2023-08-17 06:31 | PCM.HOSP.N ---
Hospitalist Note Hgb 5.8, unsure if true, repeat Hgb requested.
[2023-08-17 06:45] LABS: Hematocrit 16.1 % (40-54)
[2023-08-17] MEDS: Folic Acid 1 MG Tablet PO (09:39)
[2023-08-17] MEDS: Thiamine Hydrochloride 100 MG Tablet PO (09:39)
[2023-08-17] MEDS: Multivitamins,Ther W-Minerals Tablet 1 TABLET PO (09:40)
--- NOTE | 2023-08-17 10:41 | CASEMGMT ---
Social Work SW did let pt know that [facility] accepted him when he is ready. Pt states understanding. SW spoke w/physician, pt getting a peg tube on Saturday. Pt will be here through the weekend. SW updated [facility] via [employer]. [facility] will continue to follow. MICHAEL Kunz
[2023-08-17] MEDS: Ipratropium/Albuterol Sulfate 3 ML AMPUL.NEB INHALATION ×3 (11:17→19:00)
[2023-08-17] MEDS: Pantoprazole Sodium 40 MG in 0.9% Normal Saline (100mL MB+) 100 ML 330 MG IV ×2 (11:56→21:05)
--- NOTE | 2023-08-17 12:22 | PN.HOSP_ITS ---
Reason for Visit Reason for Visit: Diagnoses Pneumonia, unspecified organism (08/13/23) Acute respiratory failure with hypoxia (08/13/23) Acute respiratory failure with hypercapnia (08/13/23) Subjective Subjective Patient was seen and examined today, his friends were in the room at the time my examination and I talked about his medical condition with them, patient is alert and appears to understand what is going on, patient's hemoglobin dipped earlier this morning, 2 units of packed red blood cells were ordered, patient's PEG tube had to be canceled today due to the anemia. I am not sure where the blood loss is coming from at this time, I have elected to let the patient have full liquid diet-he gets agitated if he is n.p.o. Speech therapy saw the patient today. They recommended n.p.o. status but again, patient will not abide by this. I talked briefly with gastroenterology today. Objective Data Objective Data Vital Signs: Vital Signs Temp Pulse Resp BP Pulse Ox O2 Del Method O2 Flow Rate 97.5 F L 103 H 16 152/97 H 93 High Flow 6 08/17/23 11:46 08/17/23 11:46 08/17/23 11:46 08/17/23 11:46 08/17/23 10:46 08/17/23 11:46 08/17/23 10:46 FiO2 40 08/16/23 10:02 Oxygen Flow Rate (L/min) 6 Oxygen Delivery Method High Flow Weight: 64.3 kg Body Mass Index (BMI) 18.1 Intake & Output: Intake and Output for Last 24 Hours 08/15/23 08/16/23 08/17/23 23:59 23:59 23:59 Intake Total 3730 / 4410 3681.67 / 3681.67 101 / 101 Output Total 1550 / 2050 2100 / 2100 350 / 350 Balance 2180 / 2360 1581.67 / 1581.67 -249 / -249 Medical Nutrition Assessment Dietitian: Malnutrition Criteria Met Start: 08/14/23 12:43 Freq: Status: Active Protocol: Document 08/14/23 12:44 NICK (Rec: 08/14/23 12:44 [id number]) Nutrition Malnutrition Evidence of Malnutrition Exists Yes Malnutrition (severe): Chronic Evidenced By Suboptimal Energy Intake ( Severe),Weight Loss (Severe) Clinical Problem Chronic Disease or Condition Related Malnutrition Etiology severe related to suboptimal appetite Signs/Symptoms as evidenced by estimated PO intakes <75% of needs for >1 month and 43.7lbs (24.4%) weight loss in 5 months Status Active Problem Recommendation Dietitian Recommendations/Changes Continue Regular diet to optimize oral intakes with texture/consistency modifications per MD or TRAVERTINE INSTALLER. RD will discontinue EPHP supplements. Will order 118mL Ensure Compact 4x daily with medpass to provide supplemental energy . Lab / Micro Data 08/17/23 06:30 08/17/23 05:08 Labs: Laboratory Results - last 24 hr 08/17/23 05:08: WBC 8.7, RBC 1.70 L, Hgb 5.8 L*, Hct 17.6 L, MCV 103.5 H, MCH 34.1 H, MCHC 33.0, RDW Std Deviation 59.4 H, RDW Coeff of Tony 15.8 H, Plt Count 461 H, MPV 9.1, Immature Gran % (Auto) 0.700, Neut % (Auto) 78.1 H, Lymph % (Auto) 9.8 L, [place] % (Auto) 11.2 H, Eos % (Auto) 0.1, Baso % (Auto) 0.1, Absolute Neuts (auto) 6.8, Absolute Lymphs (auto) 0.85, Nucleated RBC % 0, Differential Comment SCANNED, Diff Path Review September, PT 14.4, INR 1.1, Sodium 140, Potassium 4.1, Chloride 104, Carbon Dioxide 32.0, Anion Gap 4 L, BUN 15, Creatinine 0.58 L, Estim Creat Clear Calc 83.72, Est GFR (MDRD) Af Amer 179, Est GFR (MDRD) Non-Af 148, BUN/Creatinine Ratio 25.7 H, Glucose 87, Calcium 7.8 L, Total Bilirubin 0.30, Direct Bilirubin 0.16, AST 16, ALT 23, Alkaline Phosphatase 75, Total Protein 4.9 L, Albumin 1.8 L, Globulin 3.1 08/17/23 06:30: Hgb 5.3 L*, Hct 16.1 L 08/17/23 07:15: Blood Type A POSITIVE, Antibody Screen NEGATIVE, Crossmatch See Detail Micro: Microbiology 08/14/23 07:16 Sputum, Expectorated/Coughed Gram Stain - Final 08/14/23 07:16 Sputum, Expectorated/Coughed Respiratory Culture - Final Presumptive C albicans 08/14/23 15:37 Mucosa - Nasopharyngeal Respiratory Panel (PCR) - Final 08/14/23 07:16 Urine, Clean Catch Legionella Antigen - Final 08/14/23 07:16 Urine, Clean Catch Streptococcus pneumoniae Antigen (M - Final Rhythm Strip Rhythm Strip: Sinus Tach Rate: 110 Ectopy: None Physical Exam Const alert, oriented x3 and no apparent distress General Appearance: cooperative, well kempt and well developed Orientation / Consciousness: awake, oriented to person and oriented to place HEENT normocephalic, head/scalp atraumatic and moist oral mucous membranes Eyes PERRL, EOMs intact bilaterally and conjunctivae normal Neck supple, no JVD, thyroid normal and no carotid bruits General: trachea midline Resp normal respiratory effort, no retractions and no use of accessory muscles Resp Narrative: Patient has expiratory rhonchi bilaterally Auscultation: rhonchi; Negative for rales or wheezes Cardio regular rate, regular rhythm, S1 normal heart sound, S2 normal heart sound, no murmurs, no rub and no gallops GI normal to inspection, nondistended, normoactive bowel sounds, soft to palpation, non-tender and non-distended Extremity no clubbing, cyanosis or edema Skin no rashes or lesions noted General Skin Exam: no breakdown Neuro CN's II-XII intact bilaterally, moves all extremities, no focal motor deficits and no sensory deficits noted Sensorium / Orientation: awake, alert, oriented to person and oriented to place Speech: speech normal Psych affect normal Assessment & Plan Assessment/Plan (1) Acute respiratory failure with hypoxia and hypercapnia: PLAN: Plan 1. 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 I will watch for any signs of alcohol withdrawal. #6 chronic severe protein and caloric malnutrition as evidenced by estimated p.o. intake less than 75% of needs for more than 1 month and approximately 50 pound weight loss in 5 months-patient's diet is regular, Ensure compact 4 times a day with med Pass is being given to the patient, an appetite stimulant was recommended if the patient's intake remains poor. #7 acute blood loss anemia-most probably from suspected GI bleed, patient is now on a PPI IV, hemoglobin will be monitored Patient is a DNR CC arrest without intubation. Total clinical time spent by myself addressing the patient's medical issues, reviewing all of his data, and collaborating with patient's care team: 35 minutes Charges/Coding Visit Charges Inpatient E&M: 92814 Subs Hosp L2
[2023-08-17] MEDS: 0.9% Saline Lock 10 ML Syringe IV (14:47)
[2023-08-17] MEDS: 0.9% Normal Saline (1000mL) 1,000 ML 100 ML IV (14:51)
[2023-08-17 15:57] LABS: Hematocrit 28.1 % (40-54); Hemoglobin 9.4 g/dL (13.0-16.5)
[2023-08-18] VITALS (12 sets, daily range): BP systolic 113–165; BP diastolic 80–108; PULSE 62–101; RESP 18–23; TEMP 36.4–36.9; O2SAT 92–100; BMI 18.6
[2023-08-18] MEDS: 0.9% Normal Saline (1000mL) 1,000 ML 100 ML IV (00:56)
[2023-08-18] MEDS: Ipratropium/Albuterol Sulfate 3 ML AMPUL.NEB INHALATION ×5 (02:56→20:57)
--- NOTE | 2023-08-18 04:37 | PCM.HOSP.N ---
Hospitalist Note Patient with evidence overload, on HF, will stop IVFs for now, administer lasix 40 mg IV x 1, obtain CXR.
[2023-08-18] MEDS: Piperacil/Tazobactam 3.375 GM in 0.9% Normal Saline (50mL MB+) 50 ML IV ×3 (04:50→23:01)
[2023-08-18] MEDS: Furosemide 40 MG/4 ML Vial IV (05:08)
--- NOTE | 2023-08-18 06:15 | RAD_ITS ---
INDICATION: Dyspnea EXAMINATION/TECHNIQUE: X-RAY - XR Chest 1 View COMPARISON: Prior study dated: 08/13/2023 FINDINGS: LINES/DEVICES: None. LUNGS: Improved left mid lung infiltrate. Prominent markings appear to be chronic. No evidence of pleural effusions. MEDIASTINUM AND CARDIOVASCULAR STRUCTURES: Cardiac silhouette not enlarged. Central airways and mediastinal contour are unremarkable. BONES AND SOFT TISSUES: Unremarkable. RAD/Chest 1 View (Portable) IMPRESSION: Improved left midlung infiltrate. Electronically Signed: Pedrito Wilder MD at 15:39 EDT ,
[2023-08-18] MEDS: Multivitamins,Ther W-Minerals Tablet 1 TABLET PO (08:33)
[2023-08-18] MEDS: Folic Acid 1 MG Tablet PO (08:33)
[2023-08-18] MEDS: Thiamine Hydrochloride 100 MG Tablet PO (08:33)
[2023-08-18] MEDS: Pantoprazole Sodium 40 MG in 0.9% Normal Saline (100mL MB+) 100 ML 330 MG IV ×2 (08:34→23:00)
--- NOTE | 2023-08-18 10:00 | NURSING ---
Gave report to Rachel Cabral RN
--- NOTE | 2023-08-18 11:58 | PCM.PN.HOSP ---
Reason for Visit Reason for Visit: Diagnoses Pneumonia, unspecified organism (08/13/23) Acute respiratory failure with hypoxia (08/13/23) Acute respiratory failure with hypercapnia (08/13/23) Subjective Subjective Patient was seen and examined today, he is currently on 8 L of nasal cannula oxygen and appears comfortable at rest. I talked him about undergoing a PEG tube tomorrow and he is okay with this. I also talked briefly with speech therapy. Patient's hemoglobin yesterday afternoon was 9.4, I will repeat his hemoglobin this afternoon. Objective Data Objective Data Vital Signs: Vital Signs Temp Pulse Resp BP Pulse Ox O2 Del Method O2 Flow Rate 97.6 F L 85 18 113/80 92 Nasal Cannula 8 08/18/23 08:31 08/18/23 08:31 08/18/23 08:31 08/18/23 08:31 08/18/23 08:31 08/18/23 08:31 08/18/23 08:31 FiO2 40 08/16/23 10:02 Oxygen Flow Rate (L/min) 8 Oxygen Delivery Method Nasal Cannula Weight: 65.6 kg Body Mass Index (BMI) 18.6 Intake & Output: Intake and Output for Last 24 Hours 08/16/23 08/17/23 08/18/23 23:59 23:59 23:59 Intake Total 3681.67 / 3681.67 1310.33 / 1310.33 1588.33 / 1588.33 Output Total 2100 / 2100 1450 / 1450 850 / 850 Balance 1581.67 / 1581.67 -139.67 / -139.67 738.33 / 738.33 Medical Nutrition Assessment Dietitian: Malnutrition Criteria Met Start: 08/14/23 12:43 Freq: Status: Active Protocol: Document 08/14/23 12:44 LO (Rec: 08/14/23 12:44 LO [id number]) Nutrition Malnutrition Evidence of Malnutrition Exists Yes Malnutrition (severe): Chronic Evidenced By Suboptimal Energy Intake ( Severe),Weight Loss (Severe) Clinical Problem Chronic Disease or Condition Related Malnutrition Etiology severe related to suboptimal appetite Signs/Symptoms as evidenced by estimated PO intakes <75% of needs for >1 month and 43.7lbs (24.4%) weight loss in 5 months Status Active Problem Recommendation Dietitian Recommendations/Changes Continue Regular diet to optimize oral intakes with texture/consistency modifications per MD or CONSULTANT [employer]. RD will discontinue EPHP supplements. Will order 118mL Ensure Compact 4x daily with medpass to provide supplemental energy . Lab / Micro Data 08/17/23 15:47 08/17/23 05:08 Labs: Laboratory Results - last 24 hr 08/17/23 07:15: Blood Type A POSITIVE, Antibody Screen NEGATIVE, Crossmatch See Detail 08/17/23 15:47: Hgb 9.4 L, Hct 28.1 L Micro: Microbiology 08/14/23 07:16 Sputum, Expectorated/Coughed Gram Stain - Final 08/14/23 07:16 Sputum, Expectorated/Coughed Respiratory Culture - Final Presumptive C albicans 08/14/23 15:37 Mucosa - Nasopharyngeal Respiratory Panel (PCR) - Final 08/14/23 07:16 Urine, Clean Catch Legionella Antigen - Final 08/14/23 07:16 Urine, Clean Catch Streptococcus pneumoniae Antigen (M - Final Rhythm Strip Rhythm Strip: Sinus Tach Rate: 110 Ectopy: None Physical Exam Narrative alert, oriented x3 and no apparent distress General Appearance: cooperative, well kempt and well developed Orientation / Consciousness: awake, oriented to person and oriented to place HEENT normocephalic, head/scalp atraumatic and moist oral mucous membranes Eyes PERRL, EOMs intact bilaterally and conjunctivae normal Neck supple, no JVD, thyroid normal and no carotid bruits General: trachea midline Resp normal respiratory effort, no retractions and no use of accessory muscles Resp Narrative: Patient has expiratory rhonchi bilaterally Auscultation: rhonchi; Negative for rales or wheezes Cardio regular rate, regular rhythm, S1 normal heart sound, S2 normal heart sound, no murmurs, no rub and no gallops GI normal to inspection, nondistended, normoactive bowel sounds, soft to palpation, non-tender and non-distended Extremity no clubbing, cyanosis or edema Skin no rashes or lesions noted General Skin Exam: no breakdown Neuro CN's II-XII intact bilaterally, moves all extremities, no focal motor deficits and no sensory deficits noted Sensorium / Orientation: awake, alert, oriented to person and oriented to place Speech: speech normal Psych affect normal Assessment & Plan Assessment/Plan (1) Acute respiratory failure with hypoxia and hypercapnia: PLAN: Plan 1. 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 I will watch for any signs of alcohol withdrawal. I do not believe the patient is showing any evidence of alcohol withdrawal #6 chronic severe protein and caloric malnutrition as evidenced by estimated p.o. intake less than 75% of needs for more than 1 month and approximately 50 pound weight loss in 5 months-patient's diet is regular, Ensure compact 4 times a day with med Pass is being given to the patient, an appetite stimulant was recommended if the patient's intake remains poor. #7 acute blood loss anemia-most probably from suspected GI bleed, patient is now on a PPI IV, hemoglobin will be monitored-patient will have a repeat H&H this afternoon Patient is a DNR CC arrest without intubation. Total clinical time spent by myself addressing the patient's medical issues, reviewing all of his data, and collaborating with patient's care team: 35 minutes Charges/Coding Visit Charges Inpatient E&M: 60511 Subs Hosp L2
--- NOTE | 2023-08-18 12:24 | CON.PCM.GI_ITS ---
HPI Consult Data Date of Consult: 08/19/23 HPI Narrative Reason for Consultation: Dysphagia and pneumonia HPI Narrative: CAITIE JIN, is a 63 M who presented with recurrent shortness of breath and cough. He has a past medical history of COPD/Asthma, Tobacco use, Hx Throat CA s/p unclear type surgery, Severe protein calorie malnutrition, EtOH abuse, recent discharge AMA 08/12/2023 following admission on 08/07/2023 secondary to acute influenza A with acute exacerbation COPD/asthma. During that hospital stay he was noted to have alcohol withdrawal treated with phenobarbital with documented clinical improvement however patient became belligerent and upset and left AMA 08/12/2023. He returned to home despite his need for oxygen supplementation at that time who re-presented to the ED 08/13/2023 earlier in the evening secondary to dyspnea with difficulty with oxygen saturations reportedly in the 50s to 70s prompting EMS call who placed him on a nonrebreather and administered a DuoNeb therapy with transition to the ED for evaluation. He efused admission and was belligerent and aggressive leaving again AMA despite strong discussions with recommendation for medical therapy and treatments who now again re-presents to the [facility] ED on 08/13/23 later in the evening only 1-2 hours following his recent departure with persistent ongoing shortness of breath and again inability to appropriately maintain pulse oximeter prompting EMS call who brought him in again for evaluation. In the ED he did note to staff that he had bout of emesis following coughing fits and reported it as bright red blood but this recurrent in the ED and he no peewee it looked exactly the same and from its appearance it has no bright red blood or dark blood of note. Patient reports that his cough has been productive of creamy/green sputum which was reproduced in the ED. He notes underlying anxiety and that the reason he initially left AMA was because he did not feel as if he was getting any better. Workup in the ED included T98, heart rate 105, BP 158/132, respiratory rate 27, initially noted to be 91% on 6 L nasal cannula, BP did decrease in the ED down to a low of 82/70 but improved with IV fluids to 99/70, CBC with WBC 16.5, hemoglobin 12.8, MCV 103.2, platelets 755 with left shift and lymphopenia, VBG with pH 7.31, pO2 22, bicarb 31, O2 saturation 32 on a Ventimask, BMP with CO2 35, BUN/creatinine 50/0.8, troponin 37, chest x-ray with pulmonary emphysematous and chronic fibrotic changes with interval development of patchy airspace diseas e within the left midlung suspicious for pneumonia. In the ED patient ministered IV vancomycin, IV Zosyn, DuoNeb and albuterol therapies as well as Zithromax 500 mg IV x 1 and 1 L normal saline bolus in addition to Tylenol 1000 mg p.o. x 1. I was asked to see him due to frequent vomiting and esophageal dysphagia. [facility] Medical History Alcohol abuse Asthma COPD (chronic obstructive pulmonary disease) History of throat cancer Hypertension Severe malnutrition Tobacco use Home Medications NK 08/07/23 [History Last Taken Unknown] Allergy/AdvReac Type Severity Reaction Status Date / Time No Known Allergies Allergy Verified 08/13/23 21:05 Family History Mother No problems noted. Father No problems noted. Surgical History History of throat surgery Social History household members: none housing: other current occupational status: employed Smoking Status: Former smoker how long ago did patient quit smoking: Patient notes he quit during recent admission 08/11/23. alcohol intake: current alcohol intake frequency: 3 or more drinks per day details: ~ 5 shots hard liquor, several beers daily substance use type: does not use ROS ROS Narrative Admission Review of Systems: CONSTITUTIONAL: No weight loss, fever, chills, + weakness or fatigue. HEENT: Eyes: No visual loss, blurred vision, double vision or yellow sclerae. Ears, Nose, Throat: No hearing loss, sneezing, congestion, runny nose or sore throat. SKIN: No rash or itching, lesions, wounds. CARDIOVASCULAR: No chest pain, chest pressure or chest discomfort, palpitations, edema, orthopnea, syncopal events. RESPIRATORY: + Dyspnea with productive cough of green sputum, wheezing. No hemoptysis. GASTROINTESTINAL: + anorexia, nausea, occasional emesis with coughing fit, did report initially emesis with bright red blood but upon review of actual contents this was not consistent. No diarrhea, abdominal pain, melena, BRBPR. GENITOURINARY: No dysuria, frequency, urgency or retention. NEUROLOGICAL: No headache, dizziness, syncope, paralysis, ataxia, numbness or tingling in the extremities, focal weakness, change in bowel or bladder control, seizure. MUSCULOSKELETAL: + muscle, back pain, joint pain or stiffness. HEMATOLOGIC: + Anemia, easy bleeding/bruising. LYMPHATICS: No enlarged nodes. No history of splenectomy. PSYCHIATRIC: + History of anxiety, possibly underlying depression but uncertain. ENDOCRINOLOGIC: No reports of sweating, cold or heat intolerance. No polyuria or polydipsia. ALLERGIES: + History of asthma. Physical Exam Narrative alert, oriented x3 and no apparent distress General Appearance: cooperative, well kempt and well developed Orientation / Consciousness: awake, oriented to person and oriented to place HEENT normocephalic, head/scalp atraumatic and moist oral mucous membranes Eyes PERRL, EOMs intact bilaterally and conjunctivae normal Neck supple, no JVD, thyroid normal and no carotid bruits General: trachea midline Resp normal respiratory effort, no retractions and no use of accessory muscles Resp Narrative: Patient has expiratory rhonchi bilaterally Auscultation: rhonchi; Negative for rales or wheezes Cardio regular rate, regular rhythm, S1 normal heart sound, S2 normal heart sound, no murmurs, no rub and no gallops GI normal to inspection, nondistended, normoactive bowel sounds, soft to palpation, non-tender and non-distended Extremity no clubbing, cyanosis or edema Skin no rashes or lesions noted General Skin Exam: no breakdown Neuro CN's II-XII intact bilaterally, moves all extremities, no focal motor deficits and no sensory deficits noted Sensorium / Orientation: awake, alert, oriented to person and oriented to place Speech: speech normal Psych affect normal Medical Records Data Medical Nutrition Assessment Dietitian: Malnutrition Criteria Met Start: 08/14/23 12:43 Freq: Status: Active Protocol: Document 08/14/23 12:44 (Rec: 08/14/23 12:44 [id number]) Nutrition Malnutrition Evidence of Malnutrition Exists Yes Malnutrition (severe): Chronic Evidenced By Suboptimal Energy Intake ( Severe),Weight Loss (Severe) Clinical Problem Chronic Disease or Condition Related Malnutrition Etiology severe related to suboptimal appetite Signs/Symptoms as evidenced by estimated PO intakes <75% of needs for >1 month and 43.7lbs (24.4%) weight loss in 5 months Status Active Problem Recommendation Dietitian Recommendations/Changes Continue Regular diet to optimize oral intakes with texture/consistency modifications per MD or RADIOISOTOPE TECHNOLOGIST. RD will discontinue EPHP supplements. Will order 118mL Ensure Compact 4x daily with medpass to provide supplemental energy . Lab / Micro Data 08/19/23 04:49 08/19/23 04:49 Labs: Laboratory Results - last 24 hr 08/18/23 14:35: Hgb 11.4 L, Hct 33.3 L 08/19/23 04:49: WBC 20.5 H, RBC 2.96 L, Hgb 9.6 L, Hct 27.7 L, MCV 93.6 D, MCH 32.4 H, MCHC 34.7 D, RDW Std Deviation 53.1 H, RDW Coeff of Tony 15.5 H, Plt Count 481 H, MPV 9.1, Immature Gran % (Auto) 1.100 H, Neut % (Auto) 90.8 H, Lymph % (Auto) 3.3 L, [place] % (Auto) 4.7, Eos % (Auto) 0.0, Baso % (Auto) 0.1, Absolute Neuts (auto) 18.7 H, Absolute Lymphs (auto) 0.67 L, Nucleated RBC % 0, PT 13.5, INR 1.0, Sodium 129 L, Potassium 4.3, Chloride 94 L, Carbon Dioxide 29.0, Anion Gap 6, BUN 11, Creatinine 0.46 L, Estim Creat Clear Calc 84.38, Est GFR (MDRD) Af Amer 237, Est GFR (MDRD) Non-Af 196, BUN/Creatinine Ratio 24.0 H, Glucose 113 H, Calcium 8.2 L, Phosphorus 2.8, Magnesium 1.6, Total Bilirubin 0.60, AST 17, ALT 25, Alkaline Phosphatase 87, Total Protein 5.6 L, Albumin 1.9 L, Globulin 3.7, Albumin/Globulin Ratio 0.5 L Micro: Microbiology 08/18/23 13:24 Stool Stool Occult Blood (MEEK) - Final Occult Blood Positive Rhythm Strip Rhythm Strip: Sinus Tach Rate: 110 Ectopy: None Imaging Radiology Impression Chest X-Ray 08/18/23 06:15 IMPRESSION: Improved left midlung infiltrate. Electronically Signed: Pedriot Wilder MD at 15:39 EDT , Assessment & Plan Assessment/Plan (1) Acute respiratory failure with hypoxia and hypercapnia: PLAN: Plan 1. 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 I will watch for any signs of alcohol withdrawal. I do not believe the patient is showing any evidence of alcohol withdrawal #6 chronic severe protein and caloric malnutrition as evidenced by estimated p.o. intake less than 75% of needs for more than 1 month and approximately 50 pound weight loss in 5 months-patient's diet is regular, Ensure compact 4 times a day with med Pass is being given to the patient, an appetite stimulant was recommended if the patient's intake remains poor. #7 acute blood loss anemia-most probably from suspected GI bleed, patient is now on a PPI IV, hemoglobin will be monitored-patient will have a repeat H&H #8 He will undergo EGD with PEG tube placement as he cannot eat safely. He was explained alternatives, risk, benefits including not withstanding bleeding, infection, sepsis, perforation, need for discharge and . He will have an ASA of 3. Patient is a DNR CC arrest without intubation. Total clinical time spent by myself addressing the patient's medical issues, reviewing all of his data, and collaborating with patient's care team: 35 minutes Charges/Coding Visit Charges Inpatient E&M: 83485 Init Hosp L3
[2023-08-18 15:06] LABS: Hematocrit 33.3 % (40-54); Hemoglobin 11.4 g/dL (13.0-16.5)
[2023-08-18] MEDS: 0.9% Normal Saline (250mL Bag) 250 ML 15 ML IV ×2 (19:00)
[2023-08-18] MEDS: MELATONIN 3 MG TABLET PO (23:01)
[2023-08-18] MEDS: 0.9% Saline Lock 10 ML Syringe IV (23:02)
[2023-08-19] VITALS (11 sets, daily range): BP systolic 84–168; BP diastolic 58–107; PULSE 65–101; RESP 16–22; TEMP 36.4–36.6; O2SAT 93–100; BMI 18.3
--- NOTE | 2023-08-19 | IMM_PTH ---
PATIENT: CAITIE JIN LOC: [facility] U#:[id number] AGE/SX: 63/M ROOM: [facility] RE08/13/[address]: Dr. Nicol Horton DO : 1960 BED: 1 DIS: 08/21/2023 SPEC #: [id number] RECD: 08/21/23 14:13 STATUS: SETH REQ #: [id number] MADONNA: 08/19/23 00:[address]: Nicol Horton DEPT: IMMUNOHISTOCHEMISTRY RECD BY: Jorge Mcclellan ENTERED: 08/21/23 14:15 SP TYPE: IMMUNO OTHR DR: MD Dr. Arnav Funez DO [place] Tissues: Esophagus, NOS Procedures: P53 (initial) KI-67 (add) PHYSICIAN & INSTITUTION [place] [id number] SPECIMEN INFORMATION: Tissue Source: Mid esophagus biopsy Clinical Info: Dysphagia and pneumonia Specimen Number: [id number] CPT code: 35379,55084 METHODOLOGY: Deparaffinized sections of prefer/formalin-fixed tissue or PAP/DQ stained slides are incubated with monoclonal/polyclonal antibodies/oligonucleotide probes. Localization is made via biotin free immunoperoxidase method. Appropriate controls are performed and reacted as expected. Results on target cell population are indicated in the following table: RESULTS: ANTIBODY / CLONE RESULT P53 (DO-7) negative (null pattern) Ki-67 (30-9) positive, low These tests were developed and their performance characteristics determined by [facility]. They may not have been cleared or approved by the U.S. Food and Drug Administration. The FDA has determined that such clearance or approval is not necessary. The above immunohistochemical/dualISH markers are ordered and reviewed by the Pathologist. INTERPRETATION: Mid esophagus, biopsy; Negative for dysplasia. PATTI/ 08/22/2023
[2023-08-19 05:28] LABS: Absolute Lymphocyte Count 0.67 X10^3/uL (0.83-4.51); Absolute Neutrophil Count 18.7 X10^3/uL (2.0-7.7); Basophil# 0.03 X10^3/uL; Basophil% 0.1 % (0-1); Hematocrit 27.7 % (40-54); Hemoglobin 9.6 g/dL (13.0-16.5); Lymphocyte # 0.67 X10^3/ul (0.83-4.51); Lymphocyte % 3.3 % (19-41); Mean Corp Hgb Conc 34.7 g/dL (32-36); Mean Corpuscular Hgb 32.4 pg (27.0-32.0); Mean Corpuscular Volume 93.6 fL (80-94); Mean Platelet Vol. 9.1 fl (6.2-12.0); Monocyte# 0.96 X10^3/uL; Monocyte% 4.7 % (0-10); NRBC Flagged by Analyzer 0 % (0-5); Neutrophil # 18.66 X10^3/uL (2.7-7.7); Neutrophil % 90.8 % (47-70); Platelet Count 481 K/mm3 (150-450); RBC Distribution Width CV 15.5 % (11.6-14.6); RBC Distribution Width SD 53.1 fl (35.1-43.9); Red Blood Count 2.96 M/mm3 (4.6-6.2); White Blood Count 20.5 K/mm3 (4.4-11.0)
[2023-08-19 05:36] LABS: Prothrombin Time (Protime)PT. 13.5 SECONDS (11.7-14.9)
[2023-08-19] MEDS: Piperacil/Tazobactam 3.375 GM in 0.9% Normal Saline (50mL MB+) 50 ML IV ×3 (06:04→20:10)
[2023-08-19] MEDS: 0.9% Saline Lock 10 ML Syringe IV ×3 (06:04→22:37)
[2023-08-19 06:18] LABS: ALB/GLOB Ratio 0.5 RATIO (0.9-2.4); AST(SGOT) 17 U/L (15-37); Alanine Aminotransfer ALT/SGPT 25 U/L (16-61); Albumin, Serum 1.9 g/dL (3.2-5.0); Alkaline Phosphatase 87 U/L (45-117); Anion Gap 6 (5-15); BUN 11 mg/dL (7-18); Calcium,Total 8.2 mg/dL (8.5-10.1); Chloride 94 mmol/L (98-107); Creatinine, Serum 0.46 mg/dL (0.70-1.30); EST Glomerular Filtration Rate 196 mL/min (>60); Est Glom Filt Rate - Afr Amer 237 mL/min (>60); Estimated Creatinine Clearance 84.38 ml/min; Globulin 3.7 g/dL (2.2-4.2); Glucose 113 mg/dL (74-106); Magnesium 1.6 mg/dL (1.6-2.6); Phosphorus 2.8 mg/dL (2.5-4.9); Potassium 4.3 mmol/L (3.5-5.1); Protein, Total 5.6 g/dL (6.4-8.2); Sodium Level 129 mmol/L (136-145)
[2023-08-19] MEDS: Ipratropium/Albuterol Sulfate 3 ML AMPUL.NEB INHALATION ×2 (06:58→19:31)
--- NOTE | 2023-08-19 08:57 | CASEMGMT ---
Discharge Planning Updates sent via [facility] to Naveen Avelar. Oliva Johnson, Discharge Planning Asst.
--- NOTE | 2023-08-19 10:23 | CASEMGMT ---
Discharge Planning [facility] has obtained precert. It is good through 08/21/23. Oliva Johnson, Discharge Planning Asst.
[2023-08-19] MEDS: Lactated Ringers 1,000 ML 15 ML IV (11:24)
--- NOTE | 2023-08-19 13:03 | OP.CCLET_ITS ---
08/19/2023 [facility] [place] Re : Upper GI endoscopy procedure for José Zuniga Dear Andre This procedure was performed on Saturday, August 19, 2023. My impressions and recommendations are as follows: Impressions : - Esophageal plaques were found, consistent with candidiasis. Biopsied. - LA Grade C erosive esophagitis with bleeding. - No gross lesions in the stomach. - Normal first portion of the duodenum. - An endoscopically removable PEG placement was successfully completed. Recommendations : - [facility]. - Resume previous diet. - Continue present medications. My findings are described in the full procedure note, which is enclosed. If I can be of further assistance, please feel free to contact me at . Sincerely, Pepe Dickinson, 08/19/2023 1:03:13 PM This report has been signed electronically.
--- NOTE | 2023-08-19 13:03 | OP.EGD_ITS ---
Patient Name: José Zuniga Procedure Date: 08/19/2023 12:24 PM Date of : 1960 Age: 63 Procedure: Upper GI endoscopy Indications: Dysphagia Providers: Pepe Dickinson DO Medicines: Monitored Anesthesia Care Patient Profile: This is a 63 year old male. Refer to note in patient chart for documentation of history and physical. Patient has symptoms of dysphagia with both liquids and solids. Complications: No immediate complications. Procedure: Pre-Anesthesia Assessment: - Prior to the procedure, a History and Physical was performed, and patient medications and allergies were reviewed. The patient is competent. The risks and benefits of the procedure and the sedation options and risks were discussed with the patient. All questions were answered and informed consent was obtained. Patient identification and proposed procedure were verified by the physician in the pre-procedure area. Mental Status Examination: alert and oriented. Airway Examination: normal oropharyngeal airway and neck mobility. Respiratory Examination: clear to auscultation. CV Examination: normal. Prophylactic Antibiotics: The patient does not require prophylactic antibiotics. Prior Anticoagulants: The patient has taken no anticoagulant or antiplatelet agents. ASA Grade Assessment: III - A patient with severe systemic disease. After reviewing the risks and benefits, the patient was deemed in satisfactory condition to undergo the procedure. The anesthesia plan was to use monitored anesthesia care (MAC). Immediately prior to administration of medications, the patient was re-assessed for adequacy to receive sedatives. The heart rate, respiratory rate, oxygen saturations, blood pressure, adequacy of pulmonary ventilation, and response to care were monitored throughout the procedure. The physical status of the patient was re-assessed after the procedure. After obtaining informed consent, the endoscope was passed under direct vision. Throughout the procedure, the patient's blood pressure, pulse, and oxygen saturations were monitored continuously. The gastroscope was introduced through the mouth, and advanced to the second part of duodenum. The upper GI endoscopy was accomplished without difficulty. The patient tolerated the procedure well. Scope In: 12:38:15 PM Scope Out: 12:52:21 PM Total Procedure Duration Time 0 hours 14 minutes 6 seconds Findings: Localized, white plaques were found in the upper third of the esophagus. Biopsies were taken with a cold forceps for histology. Verification of patient identification for the specimen was done. LA Grade C (one or more mucosal breaks continuous between tops of 2 or more mucosal folds, less than 75% circumference) esophagitis with bleeding was found 32 to 35 cm from the incisors. No gross lesions were noted in the stomach. The patient was placed in the supine position for PEG placement. The stomach was insufflated to appose gastric and abdominal gong. A site was located in the cardia with excellent transillumination for placement. The abdominal wall was marked and prepped in a sterile manner. The area was anesthetized with 1 mL of 0.5% lidocaine. The trocar needle was introduced through the abdominal wall and into the stomach under direct endoscopic view. A snare was introduced through the endoscope and opened in the gastric lumen. The guide wire was passed through the trocar and into the open snare. The snare was closed around the guide wire. The endoscope and snare were removed, pulling the wire out through the mouth. A skin incision was made at the site of needle insertion. The endoscopically removable 20 Fr Bard gastrostomy tube was lubricated. The G-tube was tied to the guide wire and pulled through the mouth and into the stomach. The trocar needle was removed, and the gastrostomy tube was pulled out from the stomach through the skin. The external bumper was attached to the gastrostomy tube, and the tube was cut to remove the guide wire. The final position of the gastrostomy tube was confirmed by relook endoscopy, and skin marking noted to be 4 cm at the external bumper. The final tension and compression of the abdominal wall by the PEG tube and external bumper were checked and revealed that the bumper was moderately tight and mildly deforming the skin. The feeding tube was capped, and the tube site cleaned and dressed. The first portion of the duodenum was normal. Impression: - Esophageal plaques were found, consistent with candidiasis. Biopsied. - LA Grade C erosive esophagitis with bleeding. - No gross lesions in the stomach. - Normal first portion of the duodenum. - An endoscopically removable PEG placement was successfully completed. Recommendation: - Return patient to [facility]. - Resume previous diet. - Continue present medications. Procedure Code(s): --- Professional --- 08865, Esophagogastroduodenoscopy, flexible, transoral; with directed placement of percutaneous gastrostomy tube 56819, Esophagogastroduodenoscopy, flexible, transoral; with biopsy, single or multiple CPT copyright 2021 [employer]. All rights reserved. The codes documented in this report are preliminary and upon loan examiner review may be revised to meet current compliance requirements. Pepe Dickinson DO 08/19/2023 1:03:13 PM This report has been signed electronically. Number of Addenda: 0 Note Initiated On: 08/19/2023 12:24 PM
[2023-08-19] MEDS: Pantoprazole Sodium 40 MG in 0.9% Normal Saline (100mL MB+) 100 ML 330 MG IV (14:21)
--- NOTE | 2023-08-19 14:55 | EGD_PTH ---
PATIENT: CAITIE JIN LOC: [facility] U#:[id number] AGE/SX: 63/M ROOM: [facility] RE08/13/[address]: Dr. Nicol Horton DO : 1960 BED: 1 DIS: 08/21/2023 SPEC #: [id number] RECD: 08/19/23 18:23 STATUS: SETH REKizzy #: [id number] MADONNA: 08/19/23 14:[address]: Nicol Horton DEPT: SURGICAL PATHOLOGY RECD BY: Sangeeta Weeks ENTERED: 08/20/23 08:54 SP TYPE: EGD BIOPSY [facility] DR: MD Dr. Arnav Funez, DO SILVIO Escalante Tissues: Esophagus, NOS Procedures: Special Stain Group II Special Stain Group I Surgery Specimen Level IV GMS Stain (control) Alcian Blue/PAS (control) HEADER OPERATION: EGD with peg tube placement and biopsy PRE-OP DIAGNOSIS: Dysphagia and pneumonia TISSUE SUBMITTED: Mid esophagus biopsy MICROSCOPIC DIAGNOSIS Mid esophagus, biopsy; Fragments of gastroesophageal mucosa with extensive ulceration, acute and chronic inflammation and fibrinopurulent exudation. Focal intestinal metaplasia (goblet cell metaplasia), consistent with Junior's esophagus. Negative for dysplasia. See comment. PATTI/ 08/21/2023 COMMENT Special stain for fungi is negative for organisms; matched control is appropriate. Focal viral cytopathic effects of (suggestive of Herpes) are also noted. Alcian blue/PAS stain with matched control is used in the evaluation of the specimen. Immunohistochemistry ([id number]) for P53 and Ki-67 will be performed and results will be reported separately. Correlation with clinical, endoscopic findings and appropriate follow up are necessary. Case has been reviewed in consultation with Dr. Dwyer who concurs with the above diagnosis. IDC:AM MICROSCOPIC DESCRIPTION Slides are reviewed. GROSS DESCRIPTION Received in fixative is one container labeled with the patient's name and designated Mid esophagus biopsy. The specimen consists of multiple irregular fragments of light pete soft tissue that in aggregate measure 0.6 x 0.3 x 0.1 cm. The specimen is totally submitted in one cassette. PATTI/ 08/20/2023 TC:2 CPT: 88816,49268,33013
--- NOTE | 2023-08-19 16:54 | PCM.PN.HOSP ---
Reason for Visit Reason for Visit: Shortness of breath Subjective Subjective Patient very angry about his oral status with regards to NPO. I discussed with him that speech therapy had identified no safe diet for him and that is the reason the PEG tube was placed and that his recurrent breathing issues are related to recurrent aspiration. Friend at bedside helping explain. He did calm down after further discussion. I did inform him that we plan to start tube feeds tomorrow once PEG tube has matured but okay to receive meds via PEG tonight. Objective Data Objective Data Vital Signs: Vital Signs Temp Pulse Resp BP Pulse Ox O2 Del Method O2 Flow Rate 97.9 F 65 18 140/82 H 95 Nasal Cannula 3 08/19/23 14:00 08/19/23 14:00 08/19/23 14:00 08/19/23 14:00 08/19/23 14:00 08/19/23 15:11 08/19/23 15:11 FiO2 40 08/16/23 10:02 Oxygen Flow Rate (L/min) 3 Oxygen Delivery Method Nasal Cannula Weight: 64.8 kg Body Mass Index (BMI) 18.3 Intake & Output: Intake and Output for Last 24 Hours 08/17/23 08/18/23 08/19/23 23:59 23:59 23:59 Intake Total 1310.33 / 1310.33 1808.33 / 1808.33 650 / 650 Output Total 1450 / 1450 1675 / 2175 900 / 900 Balance -139.67 / -139.67 133.33 / -366.67 -250 / -250 Medical Nutrition Assessment Dietitian: Malnutrition Criteria Met Start: 08/14/23 12:43 Freq: Status: Active Protocol: Document 08/14/23 12:44 (Rec: 08/14/23 12:44 [id number]) Nutrition Malnutrition Evidence of Malnutrition Exists Yes Malnutrition (severe): Chronic Evidenced By Suboptimal Energy Intake ( Severe),Weight Loss (Severe) Clinical Problem Chronic Disease or Condition Related Malnutrition Etiology severe related to suboptimal appetite Signs/Symptoms as evidenced by estimated PO intakes <75% of needs for >1 month and 43.7lbs (24.4%) weight loss in 5 months Status Active Problem Recommendation Dietitian Recommendations/Changes Continue Regular diet to optimize oral intakes with texture/consistency modifications per MD or DIAL BRUSHER. RD will discontinue EPHP supplements. Will order 118mL Ensure Compact 4x daily with medpass to provide supplemental energy . Lab / Micro Data 08/19/23 04:49 08/19/23 04:49 Labs: Laboratory Results - last 24 hr 08/19/23 04:49: WBC 20.5 H, RBC 2.96 L, Hgb 9.6 L, Hct 27.7 L, MCV 93.6 D, MCH 32.4 H, MCHC 34.7 D, RDW Std Deviation 53.1 H, RDW Coeff of Tony 15.5 H, Plt Count 481 H, MPV 9.1, Immature Gran % (Auto) 1.100 H, Neut % (Auto) 90.8 H, Lymph % (Auto) 3.3 L, [place] % (Auto) 4.7, Eos % (Auto) 0.0, Baso % (Auto) 0.1, Absolute Neuts (auto) 18.7 H, Absolute Lymphs (auto) 0.67 L, Nucleated RBC % 0, PT 13.5, INR 1.0, Sodium 129 L, Potassium 4.3, Chloride 94 L, Carbon Dioxide 29.0, Anion Gap 6, BUN 11, Creatinine 0.46 L, Estim Creat Clear Calc 84.38, Est GFR (MDRD) Af Amer 237, Est GFR (MDRD) Non-Af 196, BUN/Creatinine Ratio 24.0 H, Glucose 113 H, Calcium 8.2 L, Phosphorus 2.8, Magnesium 1.6, Total Bilirubin 0.60, AST 17, ALT 25, Alkaline Phosphatase 87, Total Protein 5.6 L, Albumin 1.9 L, Globulin 3.7, Albumin/Globulin Ratio 0.5 L Micro: Microbiology 08/18/23 13:24 Stool Stool Occult Blood (MEEK) - Final Occult Blood Positive 08/14/23 07:16 Sputum, Expectorated/Coughed Gram Stain - Final 08/14/23 07:16 Sputum, Expectorated/Coughed Respiratory Culture - Final Presumptive C albicans 08/14/23 15:37 Mucosa - Nasopharyngeal Respiratory Panel (PCR) - Final 08/14/23 07:16 Urine, Clean Catch Legionella Antigen - Final 08/14/23 07:16 Urine, Clean Catch Streptococcus pneumoniae Antigen (M - Final Rhythm Strip Rhythm Strip: Sinus Tach Rate: 110 Ectopy: None Physical Exam Const alert, oriented x3 and no apparent distress; Negative for average body habitus, healthy appearing or well nourished Constitutional Narrative: Cachectic appearing, upper middle-aged, white male, sitting up in bed, very argumentative throughout the entire conversation however friend at bedside was held full and calming him down and helping him see reason, appears unhealthy and older than stated age HEENT head/scalp atraumatic HEENT Narrative: Dry mouth, Mallampati 1, no oral thrush identified Head and Scalp: normocephalic Eyes PERRL and EOMs intact bilaterally Eyes Narrative: Mild conjunctival pallor bilaterally, no scleral icterus Neck no lymphadenopathy and supple Neck Narrative: Trachea midline Resp normal respiratory effort, no retractions and no use of accessory muscles Resp Narrative: Diffusely diminished with scattered rhonchi and rhonchorous cough intermittently Auscultation: rhonchi; Negative for rales or wheezes Cardio regular rate, regular rhythm, S1 normal heart sound, S2 normal heart sound, no murmurs, no rub, no gallops and no clicks GI normal to inspection, nondistended, normoactive bowel sounds, soft to palpation and non-tender Extremity no clubbing, cyanosis or edema Extremity Narrative: Decreased lean muscle mass, pedal pulses and radial pulses are 2+ Neuro oriented x3, moves all extremities and no focal motor deficits Speech: speech normal Assessment & Plan Assessment/Plan (1) Acute respiratory failure with hypoxia and hypercapnia: (2) Pneumonia: PLAN: Plan Acute hypoxia secondary to aspiration pneumonia/acute exacerbation of COPD -Patient has had a few visits to the emergency department where he has been hypoxic previously so he may have a component of chronic hypoxic respiratory failure and need oxygen at discharge but will need to monitor -Left AMA from his last hospitalization so oxygen was not prescribed an ambulatory pulse ox prior to discharge with not performed -Will need ambulatory pulse ox prior to discharge -Sputum culture unobtainable -Continue as needed albuterol -Add scheduled DuoNebs -strep pneumo and Legionella antigens negative -Continue Solu-Medrol 40 every 8 -Continue I-S -Add Acapella -Continue Zosyn -continue scheduled and as needed nebulizers -Strict n.p.o. Dysphagia -Speech is following -PEG tube placed today -Start tube feed tomorrow -Likely multifactorial with his history of head and neck cancer/radiation/debility Acute blood loss anemia -Patient received transfusion -Hemoglobin now stable at 9.6 -Repeat in a.m. -See EGD documentation GI bleeding -EGD on 08/19/2023 done for PEG placement candidiasis,EGD done today and esophageal plaques consistent with grade C erosive esophagitis with bleeding, no stomach lesions, and the first portion of duodenum was normal -Start lansoprazole 30 mg via PEG tube twice daily Esophageal candidiasis -Start fluconazole via PEG 200 mg daily x 21 days Leukocytosis -Likely related to steroids and demargination--> was normal on the -Continue antibiotics as noted above Acute hyponatremia -Sodium is 129 after being 140 on admission -Etiology is unclear -Start IV fluids with normal saline at 75 cc/h while n.p.o. and reassess sodium in a.m. Severe malnutrition -Dietitian following -Patient n.p.o. due to severe dysphagia -PEG tube placed and plan is to start tube feeds tomorrow Generalized weakness/debility -PT/OT consultation and plan is for placement at discharge once medically stable which I anticipate to be in the next 48 hours -We do have pre-CERT for [facility] and it is good through 08/21/2023. Hypertension -Continue Coreg 6.25 -Add Amlodipine 5 mg -As needed hydralazine Alcohol Abuse -Stop thiamine and folate -cont multivitamin -No signs of acute withdrawal Tobacco abuse -Recommend cessation -Continue nicotine replacement therapy DVT prophylaxis -Start Lovenox 30 units subcu daily CODE STATUS -DNR CCA with no intubation as identified on admission Charges/Coding Visit Charges Inpatient E&M: 59320 Subs Hosp L2
[2023-08-19] MEDS: 0.9% Normal Saline (1000mL) 1,000 ML 75 ML IV (19:27)
[2023-08-19] MEDS: Carvedilol 6.25 MG Tablet PO (20:00)
[2023-08-19] MEDS: Bisacodyl 5 MG Tablet 20 MG PO (20:00)
[2023-08-19] MEDS: Lansoprazole 15 MG Capsule.DR 30 MG GT (22:14)
[2023-08-19] MEDS: Polyethylene Glycol 3350 BOWEL PREP PO (22:14)
[2023-08-19] MEDS: Fluconazole Suspension 40 MG/ML 35 ML Bottle 200 MG GT (22:37)
[2023-08-19] MEDS: Metoclopramide 10 MG/2 ML Vial IV (22:37)
[2023-08-20] VITALS (13 sets, daily range): BP systolic 128–150; BP diastolic 70–106; PULSE 67–99; RESP 16–21; TEMP 36.2–36.9; O2SAT 91–96; BMI 18.0
--- NOTE | 2023-08-20 | COLBX_PTH ---
PATIENT: CAITIE JIN LOC: [facility] U#:[id number] AGE/SX: 63/M ROOM: [facility] RE08/13/[address]: Dr. Nicol Horton DO : 1960 BED: 1 DIS: 08/21/2023 SPEC #: [id number] RECD: 08/21/23 09:25 STATUS: SETH SUSANA #: [id number] MADONNA: 08/20/23 00:[address]: Nicol Horton DEPT: SURGICAL PATHOLOGY RECD BY: Hilario Elliott ENTERED: 08/21/23 10:43 SP TYPE: COLON BX OTHR DR: MD Dr. Arnav Funez DO SILVIO Escalante Tissues: SPLENIC FLEXURE Procedures: Surgery Specimen Level IV HEADER OPERATION: Colonoscopy with polypectomy PRE-OP DIAGNOSIS: GI bleed TISSUE SUBMITTED: Splenic flexure polyp MICROSCOPIC DIAGNOSIS Colonic splenic flexure, biopsy; Fragments of tubular adenoma. AM/mr 08/22/2023' MICROSCOPIC DESCRIPTION Slides are reviewed. GROSS DESCRIPTION Received in fixative is one container labeled with the patient's name and designated Splenic flexure polyp. The specimen consists of multiple irregular fragments of light pete soft tissue that in aggregate measure 2.0 x 1.0 x 0.2 cm. The specimen is totally submitted in one cassette. / 08/21/2023 TC:5 CPT: 45141
[2023-08-20] MEDS: 0.9% Saline Lock 10 ML Syringe IV ×3 (05:23→23:46)
[2023-08-20] MEDS: Enoxaparin 40 MG/0.4 ML Syringe SC (05:24)
[2023-08-20] MEDS: Piperacil/Tazobactam 3.375 GM in 0.9% Normal Saline (50mL MB+) 50 ML IV ×3 (05:24→21:16)
[2023-08-20] MEDS: Metoclopramide 10 MG/2 ML Vial IV ×4 (05:25→23:46)
[2023-08-20] MEDS: Ipratropium/Albuterol Sulfate 3 ML AMPUL.NEB INHALATION ×3 (07:30→19:40)
[2023-08-20 07:54] LABS: Anion Gap 7 (5-15); BUN 13 mg/dL (7-18); BUN/Creat Ratio 21.9 RATIO (10-20); Calcium,Total 8.5 mg/dL (8.5-10.1); Chloride 96 mmol/L (98-107); Creatinine, Serum 0.59 mg/dL (0.70-1.30); EST Glomerular Filtration Rate 146 mL/min (>60); Est Glom Filt Rate - Afr Amer 176 mL/min (>60); Estimated Creatinine Clearance 82.81 ml/min; Glucose 78 mg/dL (74-106); Potassium 4.4 mmol/L (3.5-5.1); Sodium Level 128 mmol/L (136-145)
--- NOTE | 2023-08-20 09:17 | NS ---
This dietitian backlined Dr. Nicol Horton and she confirmed ok to start enteral nutrition. RD placed EN order. RD received another message from Dr. Horton to hold off on EN since Dr. Dickinson prepped pt for colonoscopy. Stated we can start EN after the colonoscopy is done this afternoon. RD placed Jevity 1.5 order on hold.
[2023-08-20 09:34] LABS: Pathologist Review Reviewed
[2023-08-20 09:35] LABS: Hemoglobin 5.3 g/dL (13.0-16.5)
[2023-08-20] MEDS: 0.9% Normal Saline (1000mL) 1,000 ML 75 ML IV (12:28)
--- NOTE | 2023-08-20 13:05 | PCM.PN.HOSP ---
Reason for Visit Reason for Visit: Shortness of breath Subjective Subjective No issues overnight. Patient initially upset because we have not started tube feed yet. I explained to him that we cannot start tube feed due to the fact that he is scheduled for colonoscopy and we would start it immediately following his colonoscopy. He calm down after we had further discussion. I also informed him my plan is to discharge him tomorrow as long as he tolerates tube feed and there were no significant issues found on his colonoscopy that would prevent discharge. He voiced understanding and was more pleasant following. Objective Data Objective Data Vital Signs: Vital Signs Temp Pulse Resp BP Pulse Ox O2 Del Method O2 Flow Rate 97.8 F 82 16 143/106 H 95 Nasal Cannula 3 08/20/23 04:30 08/20/23 12:03 08/20/23 12:03 08/20/23 04:30 08/20/23 12:03 08/20/23 12:03 08/20/23 12:03 FiO2 40 08/16/23 10:02 Oxygen Flow Rate (L/min) 3 Oxygen Delivery Method Nasal Cannula Weight: 63.6 kg Body Mass Index (BMI) 18.0 Intake & Output: Intake and Output for Last 24 Hours 08/18/23 08/19/23 08/20/23 23:59 23:59 23:59 Intake Total 1808.33 / 1808.33 799.5 / 799.5 4140.5 / 4140.5 Output Total 1675 / 2175 2300 / 2300 300 / 300 Balance 133.33 / -366.67 -1500.5 / -1500.5 3840.5 / 3840.5 Medical Nutrition Assessment Dietitian: Malnutrition Criteria Met Start: 08/14/23 12:43 Freq: Status: Active Protocol: Document 08/14/23 12:44 NICK (Rec: 08/14/23 12:44 [id number]) Nutrition Malnutrition Evidence of Malnutrition Exists Yes Malnutrition (severe): Chronic Evidenced By Suboptimal Energy Intake ( Severe),Weight Loss (Severe) Clinical Problem Chronic Disease or Condition Related Malnutrition Etiology severe related to suboptimal appetite Signs/Symptoms as evidenced by estimated PO intakes <75% of needs for >1 month and 43.7lbs (24.4%) weight loss in 5 months Status Active Problem Recommendation Dietitian Recommendations/Changes Continue Regular diet to optimize oral intakes with texture/consistency modifications per MD or FAMILY RESOURCE MANAGEMENT SPECIALIST. RD will discontinue EPHP supplements. Will order 118mL Ensure Compact 4x daily with medpass to provide supplemental energy . Lab / Micro Data 08/19/23 04:49 08/20/23 06:00 Labs: Laboratory Results - last 24 hr 08/17/23 05:08: Diff Path Review Reviewed 08/17/23 06:30: Hgb 5.3 L* 08/20/23 06:00: Sodium 128 L, Potassium 4.4, Chloride 96 L, Carbon Dioxide 25.0, Anion Gap 7, BUN 13, Creatinine 0.59 L, Estim Creat Clear Calc 82.81, Est GFR (MDRD) Af Amer 176, Est GFR (MDRD) Non-Af 146, BUN/Creatinine Ratio 21.9 H, Glucose 78, Calcium 8.5 Micro: Microbiology 08/18/23 13:24 Stool Stool Occult Blood (MEEK) - Final Occult Blood Positive 08/14/23 07:16 Sputum, Expectorated/Coughed Gram Stain - Final 08/14/23 07:16 Sputum, Expectorated/Coughed Respiratory Culture - Final Presumptive C albicans 08/14/23 15:37 Mucosa - Nasopharyngeal Respiratory Panel (PCR) - Final 08/14/23 07:16 Urine, Clean Catch Legionella Antigen - Final 08/14/23 07:16 Urine, Clean Catch Streptococcus pneumoniae Antigen (M - Final Rhythm Strip Rhythm Strip: Sinus Tach Rate: 110 Ectopy: None Physical Exam Const alert, oriented x3 and no apparent distress; Negative for average body habitus, healthy appearing or well nourished Constitutional Narrative: Cachectic appearing, upper middle-aged, white male, sitting up in bed, watching television, appears more comfortable and initially agitated but less argumentative today HEENT normocephalic, head/scalp atraumatic and moist oral mucous membranes HEENT Narrative: Dentition is poor, Mallampati is 1, no thrush Resp normal respiratory effort, no retractions and no use of accessory muscles Resp Narrative: Diffusely diminished but improved rhonchi overall still few scattered rhonchi present however Auscultation: rhonchi; Negative for rales or wheezes Cardio regular rate, regular rhythm, S1 normal heart sound, S2 normal heart sound, no murmurs, no rub, no gallops and no clicks GI normal to inspection, nondistended, normoactive bowel sounds, soft to palpation and non-tender GI Narrative: Scaphoid abdomen Extremity no clubbing, cyanosis or edema Extremity Narrative: Decreased lean muscle mass, pedal pulses and radial pulses are 2+ Neuro oriented x3, moves all extremities and no focal motor deficits Sensorium / Orientation: awake, alert, oriented to person, oriented to place and oriented to time Speech: speech normal Psych Psych Narrative: Less agitated overall Assessment & Plan Assessment/Plan (1) Acute respiratory failure with hypoxia and hypercapnia: (2) Pneumonia: PLAN: Plan Acute hypoxia secondary to aspiration pneumonia/acute exacerbation of COPD -Patient has had a few visits to the emergency department where he has been hypoxic previously so he may have a component of chronic hypoxic respiratory failure and need oxygen at discharge but will need to monitor -Left AMA from his last hospitalization so oxygen was not prescribed an ambulatory pulse ox prior to discharge with not performed -Currently on 3 L of nasal cannula at rest -Highly suspect patient will need chronic supplemental oxygen -Sputum culture unobtainable -Continue as needed albuterol -Continue scheduled DuoNebs -De-escalate from Solu-Medrol 40 every 8 to prednisone 40 daily -Continue I-S -Continue Acapella -Continue Zosyn--> Zosyn day 6 of 7 -Strict n.p.o. Dysphagia -Speech is following -PEG tube placed on 08/19/2023 -Start tube feed today after colonoscopy has been completed -Likely multifactorial with his history of head and neck cancer/radiation/debility Acute blood loss anemia -Patient received transfusion -Repeat in a.m. -See EGD documentation GI bleeding -EGD on 08/19/2023 done for PEG placement candidiasis,EGD done today and esophageal plaques consistent with grade C erosive esophagitis with bleeding, no stomach lesions, and the first portion of duodenum was normal -Continue lansoprazole 30 mg via PEG tube twice daily -Colonoscopy is pending Esophageal candidiasis -Start fluconazole via PEG 200 mg daily x 21 days Leukocytosis -Likely related to steroids and demargination--> was normal on the -Continue antibiotics as noted above -Repeat CBC in a.m. Acute hyponatremia -Sodium is 128 after being 140 on admission however patient has not had any solute due to being n.p.o. and also had prep for colonoscopy -Etiology is unclear -Will stop IV fluids at 1400 after colonoscopy Severe malnutrition -Dietitian following -Patient n.p.o. due to severe dysphagia -PEG tube placed and plan is to start tube feeds tomorrow Generalized weakness/debility -PT/OT consultation and plan is for placement at discharge once medically stable which I anticipate to be in the next 48 hours -We do have pre-CERT for [facility] and it is good through 08/21/2023. Hypertension -Continue Coreg 6.25 -Continue amlodipine 5 mg -As needed hydralazine Alcohol Abuse -Stop thiamine and folate -cont multivitamin -No signs of acute withdrawal Tobacco abuse -Recommend cessation -Continue nicotine replacement therapy DVT prophylaxis -Continue Lovenox 30 units subcu daily CODE STATUS -DNR CCA with no intubation as identified on admission Charges/Coding Visit Charges Inpatient E&M: 63159 Subs Hosp L2
[2023-08-20] MEDS: Lactated Ringers 1,000 ML 15 ML IV (14:42)
--- NOTE | 2023-08-20 17:20 | OP.COLON_ITS ---
Patient Name: José Zuniga Procedure Date: 08/20/2023 4:42 PM Date of : 1960 Age: 63 Procedure: Colonoscopy Indications: Iron deficiency anemia Providers: Pepe Dickinson DO Medicines: Monitored Anesthesia Care Patient Profile: This is a 63 year old male. Refer to note in patient chart for documentation of history and physical. Last Colonoscopy: none. The patient's first colonoscopy is today. Complications: No immediate complications. Procedure: Pre-Anesthesia Assessment: - Prior to the procedure, a History and Physical was performed, and patient medications and allergies were reviewed. The patient is competent. The risks and benefits of the procedure and the sedation options and risks were discussed with the patient. All questions were answered and informed consent was obtained. Patient identification and proposed procedure were verified by the physician in the pre-procedure area. Mental Status Examination: alert and oriented. Airway Examination: normal oropharyngeal airway and neck mobility. Respiratory Examination: clear to auscultation. CV Examination: normal. Prophylactic Antibiotics: The patient does not require prophylactic antibiotics. Prior Anticoagulants: The patient has taken no anticoagulant or antiplatelet agents. ASA Grade Assessment: II - A patient with mild systemic disease. After reviewing the risks and benefits, the patient was deemed in satisfactory condition to undergo the procedure. The anesthesia plan was to use monitored anesthesia care (MAC). Immediately prior to administration of medications, the patient was re-assessed for adequacy to receive sedatives. The heart rate, respiratory rate, oxygen saturations, blood pressure, adequacy of pulmonary ventilation, and response to care were monitored throughout the procedure. The physical status of the patient was re-assessed after the procedure. After I obtained informed consent, the scope was passed under direct vision. Throughout the procedure, the patient's blood pressure, pulse, and oxygen saturations were monitored continuously. The Colonoscope was introduced through the anus and advanced to the terminal ileum. The colonoscopy was performed without difficulty. The patient tolerated the procedure well. The quality of the bowel preparation was fair. The terminal ileum, ileocecal valve, appendiceal orifice, and rectum were photographed. Scope In: 4:56:45 PM Scope Withdrawal Time 0 hours 6 minutes 13 seconds Scope Out: 5:11:02 PM Total Procedure Duration Time 0 hours 14 minutes 17 seconds Findings: The perianal and digital rectal examinations were normal. Multiple small and large-mouthed diverticula were found in the recto-sigmoid colon, sigmoid colon and descending colon. Two sessile polyps were found in the splenic flexure. The polyps were 1 to 2 mm in size. These polyps were removed with a hot snare. Resection and retrieval were complete. Verification of patient identification for the specimen was done. Estimated blood loss was minimal. Stool was found in the rectum, in the sigmoid colon, at the hepatic flexure and at the appendiceal orifice. Impression: - Preparation of the colon was fair. - Diverticulosis in the recto-sigmoid colon, in the sigmoid colon and in the descending colon. - Two 1 to 2 mm polyps at the splenic flexure, removed with a hot snare. Resected and retrieved. - Stool in the rectum, in the sigmoid colon, at the hepatic flexure and at the appendiceal orifice. Recommendation: - Return patient [facility]. - Resume previous diet. - Continue present medications. - Await pathology results. - Repeat colonoscopy in 1 year for surveillance. Procedure Code(s): --- Professional --- 13025, Colonoscopy, flexible; with removal of tumor(s), polyp(s), or other lesion(s) by snare technique CPT copyright 2021 [employer]. All rights reserved. The codes documented in this report are preliminary and upon deputy fire marshal review may be revised to meet current compliance requirements. Pepe Dickinson DO 08/20/2023 5:19:32 PM This report has been signed electronically. Number of Addenda: 0 Note Initiated On: 08/20/2023 4:42 PM
--- NOTE | 2023-08-20 17:20 | OP.CCLET_ITS ---
08/20/2023 Cha Powell Re : Colonoscopy procedure for José Zuniga Dear Andre This procedure was performed on Sunday, August 20, 2023. My impressions and recommendations are as follows: Impressions : - Preparation of the colon was fair. - Diverticulosis in the recto-sigmoid colon, in the sigmoid colon and in the descending colon. - Two 1 to 2 mm polyps at the splenic flexure, removed with a hot snare. Resected and retrieved. - Stool in the rectum, in the sigmoid colon, at the hepatic flexure and at the appendiceal orifice. Recommendations : - Return patient to [facility] care. - Resume previous diet. - Continue present medications. - Await pathology results. - Repeat colonoscopy in 1 year for surveillance. My findings are described in the full procedure note, which is enclosed. If I can be of further assistance, please feel free to contact me at . Sincerely, Pepe Dickinson, 08/20/2023 5:19:32 PM This report has been signed electronically.
[2023-08-20] MEDS: Carvedilol 6.25 MG Tablet PO (18:09)
[2023-08-20] MEDS: Jevity 1.5. 1,000 ML Bottle 240 ML GT ×2 (18:10→21:34)
[2023-08-20] MEDS: Fluconazole Suspension 40 MG/ML 35 ML Bottle 200 MG GT (18:10)
[2023-08-20] MEDS: Lansoprazole 15 MG Capsule.DR 30 MG GT (21:34)
[2023-08-21 03:43] VITALS: BP 161/69; PULSE 68; RESP 18; TEMP 36.6; O2SAT 92
[2023-08-21 05:27] VITALS: BMI 19.3
[2023-08-21] MEDS: Metoclopramide 10 MG/2 ML Vial IV ×2 (05:48→12:47)
[2023-08-21] MEDS: Piperacil/Tazobactam 3.375 GM in 0.9% Normal Saline (50mL MB+) 50 ML IV ×2 (05:48→13:47)
[2023-08-21] MEDS: Enoxaparin 40 MG/0.4 ML Syringe SC (05:48)
[2023-08-21] MEDS: 0.9% Saline Lock 10 ML Syringe IV (05:48)
[2023-08-21] MEDS: Jevity 1.5. 1,000 ML Bottle 240 ML GT ×4 (05:48→15:55)
[2023-08-21 06:10] VITALS: BMI 17.9
--- NOTE | 2023-08-21 07:02 | EX.PCM.PN.GI ---
Subjective Subjective Patient underwent colonoscopy yesterday. He was discovered to have multiple adenomatous polyps were removed. There was no sign of acute or chronic GI bleeding in his colon. Objective Data Objective Data Vital Signs: Vital Signs Temp Pulse Resp BP Pulse Ox O2 Del Method O2 Flow Rate 97.6 F L 78 18 132/68 H 94 Nasal Cannula 2 08/21/23 15:48 08/21/23 15:48 08/21/23 15:48 08/21/23 15:48 08/21/23 15:48 08/21/23 15:48 08/21/23 15:48 FiO2 40 08/16/23 10:02 Oxygen Flow Rate (L/min) 2 Oxygen Delivery Method Nasal Cannula Weight: 139 lb 12.369 oz Body Mass Index (BMI) 17.9 Intake & Output: Intake and Output for Last 24 Hours 08/19/23 08/20/23 08/21/23 23:59 23:59 23:59 Intake Total 799.5 / 799.5 5679.25 / 5679.25 1300 / 1300 Output Total 2300 / 2300 300 / 300 900 / 900 Balance -1500.5 / -1500.5 5379.25 / 5379.25 400 / 400 Lab / Micro Data 08/21/23 06:25 08/21/23 06:25 Labs: Laboratory Results - last 24 hr 08/21/23 06:25: WBC 15.9 H, RBC 3.35 L, Hgb 10.8 L, Hct 32.2 L, MCV 96.1 H, MCH 32.2 H, MCHC 33.5, RDW Std Deviation 54.9 H, RDW Coeff of Tony 15.9 H, Plt Count 463 H, MPV 9.1, Immature Gran % (Auto) 1.300 H, Neut % (Auto) 86.5 H, Lymph % (Auto) 5.2 L, [place] % (Auto) 6.9, Eos % (Auto) 0.0, Baso % (Auto) 0.1, Absolute Neuts (auto) 13.8 H, Absolute Lymphs (auto) 0.83, Nucleated RBC % 0, Sodium 129 L, Potassium 4.2, Chloride 99, Carbon Dioxide 25.0, Anion Gap 5, BUN 17, Creatinine 0.63 L, Estim Creat Clear Calc 82.55, Est GFR (MDRD) Af Amer 165, Est GFR (MDRD) Non-Af 137, BUN/Creatinine Ratio 27.2 H, Glucose 113 H, Calcium 8.4 L Micro: Microbiology 08/18/23 13:24 Stool Stool Occult Blood (MEEK) - Final Occult Blood Positive 08/14/23 07:16 Sputum, Expectorated/Coughed Gram Stain - Final 08/14/23 07:16 Sputum, Expectorated/Coughed Respiratory Culture - Final Presumptive C albicans 08/14/23 15:37 Mucosa - Nasopharyngeal Respiratory Panel (PCR) - Final 08/14/23 07:16 Urine, Clean Catch Legionella Antigen - Final 08/14/23 07:16 Urine, Clean Catch Streptococcus pneumoniae Antigen (M - Final Rhythm Strip Rhythm Strip: Sinus Tach Rate: 110 Ectopy: None Physical Exam Const alert, oriented x3, no apparent distress and no limitations; Negative for average body habitus, healthy appearing or well nourished Constitutional Narrative: Cachectic appearing, upper middle-aged, white male, sitting up in bed, watching television, appears more comfortable, very pleasant, no agitation today, appears much older than stated age General Appearance: cooperative, comfortable, well kempt and well developed Orientation / Consciousness: awake, oriented to person, oriented to place and oriented to time Exam Limitations: no limitations Nutritional Appearance: cachectic HEENT normocephalic, head/scalp atraumatic and moist oral mucous membranes HEENT Narrative: Dentition is core, Mallampati is 1, no thrush, mild to moderate hearing loss Eyes PERRL, EOMs intact bilaterally and conjunctivae normal Eyes Narrative: Mild conjunctival pallor bilaterally, no scleral icterus Neck no lymphadenopathy, supple, no JVD, thyroid normal and no carotid bruits Neck Narrative: Trachea midline General: trachea midline Resp normal respiratory effort, no retractions, no use of accessory muscles and clear to auscultation bilaterally Resp Narrative: Diffusely diminished but improved rhonchi overall still few scattered rhonchi present however Auscultation: rhonchi; Negative for rales or wheezes Cardio regular rate, regular rhythm, S1 normal heart sound, S2 normal heart sound, no murmurs, no rub, no gallops and no clicks GI normal to inspection, nondistended, normoactive bowel sounds, soft to palpation and non-tender GI Narrative: Scaphoid abdomen, PEG tube in place Extremity no clubbing, cyanosis or edema Extremity Narrative: Decreased lean muscle mass, pedal pulses and radial pulses are 2+ Skin no rashes or lesions noted, skin turgor normal and no jaundice Neuro oriented x3, CN's II-XII intact bilaterally, moves all extremities and no focal motor deficits Neuro Narrative: Marked generalized weakness Speech: speech normal Psych affect normal Psych Narrative: Interacts appropriately, eye contact is good, much more pleasant today Assessment & Plan Assessment/Plan (1) Acute respiratory failure with hypoxia and hypercapnia: (2) Pneumonia: PLAN: Plan Acute hypoxia secondary to aspiration pneumonia/acute exacerbation of COPD -Patient has had a few visits to the emergency department where he has been hypoxic previously so he may have a component of chronic hypoxic respiratory failure and need oxygen at discharge but will need to monitor -Left AMA from his last hospitalization so oxygen was not prescribed an ambulatory pulse ox prior to discharge with not performed -Currently on 3 L of nasal cannula at rest -Highly suspect patient will need chronic supplemental oxygen -Sputum culture unobtainable -Continue as needed albuterol -Continue scheduled DuoNebs -De-escalate from Solu-Medrol 40 every 8 to prednisone 40 daily -Continue I-S -Continue Acapella -Continue Zosyn--> Zosyn day 6 of 7 -Strict n.p.o. Dysphagia -Speech is following -PEG tube placed on 08/19/2023 -Start tube feed today after colonoscopy has been completed -Likely multifactorial with his history of head and neck cancer/radiation/debility Acute blood loss anemia -Patient received transfusion -Repeat in a.m. -See EGD documentation GI bleeding -EGD on 08/19/2023 done for PEG placement candidiasis,EGD done today and esophageal plaques consistent with grade C erosive esophagitis with bleeding, no stomach lesions, and the first portion of duodenum was normal -Continue lansoprazole 30 mg via PEG tube twice daily -Colonoscopy is pending Esophageal candidiasis -Start fluconazole via PEG 200 mg daily x 21 days -Patient n.p.o. due to severe dysphagia -PEG tube placed and plan is to start tube feeds tomorrow Charges/Coding Visit Charges Inpatient E&M: [id number] [place] [id number]
[2023-08-21 07:24] LABS: Absolute Lymphocyte Count 0.83 X10^3/uL (0.83-4.51); Absolute Neutrophil Count 13.8 X10^3/uL (2.0-7.7); Basophil# 0.02 X10^3/uL; Basophil% 0.1 % (0-1); Hematocrit 32.2 % (40-54); Hemoglobin 10.8 g/dL (13.0-16.5); Lymphocyte # 0.83 X10^3/ul (0.83-4.51); Lymphocyte % 5.2 % (19-41); Mean Corp Hgb Conc 33.5 g/dL (32-36); Mean Corpuscular Hgb 32.2 pg (27.0-32.0); Mean Corpuscular Volume 96.1 fL (80-94); Mean Platelet Vol. 9.1 fl (6.2-12.0); Monocyte# 1.09 X10^3/uL; Monocyte% 6.9 % (0-10); NRBC Flagged by Analyzer 0 % (0-5); Neutrophil # 13.76 X10^3/uL (2.7-7.7); Neutrophil % 86.5 % (47-70); Platelet Count 463 K/mm3 (150-450); RBC Distribution Width CV 15.9 % (11.6-14.6); RBC Distribution Width SD 54.9 fl (35.1-43.9); Red Blood Count 3.35 M/mm3 (4.6-6.2); White Blood Count 15.9 K/mm3 (4.4-11.0)
[2023-08-21 07:32] VITALS: PULSE 82; RESP 16; O2SAT 96
[2023-08-21] MEDS: Ipratropium/Albuterol Sulfate 3 ML AMPUL.NEB INHALATION ×3 (07:32→15:30)
[2023-08-21 07:45] LABS: Anion Gap 5 (5-15); BUN 17 mg/dL (7-18); BUN/Creat Ratio 27.2 RATIO (10-20); Calcium,Total 8.4 mg/dL (8.5-10.1); Chloride 99 mmol/L (98-107); Creatinine, Serum 0.63 mg/dL (0.70-1.30); EST Glomerular Filtration Rate 137 mL/min (>60); Est Glom Filt Rate - Afr Amer 165 mL/min (>60); Estimated Creatinine Clearance 82.55 ml/min; Glucose 113 mg/dL (74-106); Potassium 4.2 mmol/L (3.5-5.1); Sodium Level 129 mmol/L (136-145)
[2023-08-21] MEDS: Carvedilol 6.25 MG Tablet PO (09:07)
[2023-08-21] MEDS: Lansoprazole 15 MG Capsule.DR 30 MG GT (09:07)
[2023-08-21] MEDS: Multivitamins,Ther W-Minerals Tablet 1 TABLET PO (09:08)
[2023-08-21] MEDS: predniSONE 20 MG Tablet 40 MG GT (09:08)
[2023-08-21 09:48] VITALS: BP 158/72; PULSE 68; RESP 20; TEMP 36.2; O2SAT 92
--- NOTE | 2023-08-21 10:33 | CASEMGMT ---
Patient was asking again about doing a Healthcare Power of Pipe Smoking Machine Offbearer (HCPOA) and a Healthcare Living Will (HCLW). SW completed documents with patient. Copies were made and given to patient along with originals. SW also placed a copy of each in patient's chart. Patient named his friend Salinas Salazar as his Healthcare Power of Pipe Smoking Machine Offbearer. 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
[2023-08-21 11:17] VITALS: PULSE 85; RESP 20
--- NOTE | 2023-08-21 11:34 | CASEMGMT ---
LONI sent tube feed recommendations to [facility] and let them know patient will be coming today. Plan: d/c to [facility] under skilled level of care. Estelita MCKINNON
--- NOTE | 2023-08-21 11:48 | PCM.TXEXTCAR ---
Diet Diet Order/Speech Therapy: 08/20/23 00:01 Diet: Nothing Per Oral Is pt able to select menu?: Yes Diet Comments: Ok for sips/chips supervised after oral care, Phillip suction as needed Routine Orders/Code Status O2 Liters per Minute: 2 O2 Frequency: Continuous Keep PO Greater than or Equal to (%): 89 Routine Lab Work: CBC (1 week) and BMP (1 week) Code Status: DNRCC-A (no intubation) Wound(s) coccyx: Wound Type: Pressure Injury left forearm: Wound Type: Laceration ABDOMEN PEG TUBE: Wound Type: PEG TUBE Therapies Weight Bearing: Full weight bearing Physical Therapy: Eval and Treat Occupational Therapy: Eval and Treat Speech Therapy: Eval and Treat Problem/Diagnosis (1) Acute respiratory failure with hypoxia and hypercapnia: Status: Acute Code(s): J96.01 - Acute respiratory failure with hypoxia; J96.02 - Acute respiratory failure with hypercapnia (2) Pneumonia: Status: Acute Code(s): J18.9 - Pneumonia, unspecified organism Allergies/Procedures Done in Hospital Allergies No Known Allergies Allergy (Verified 08/13/23 21:05) Procedures: Colonoscopy, EGD, EKG and - (MBS/CXR) Type of Care/Length of Stay Estimated LOS: Convalescent Care Less Than 30 days Type of Care Needed: Skilled Rehab Potential: Fair Prognosis: Fair Additional Orders/Day of Discharge Day of Discharge: 08/21/23 Dietary and Speech Recommendations Dietitian Recommendations/Changes: Recommend 240mL bolus of Jevity 1.5 - 6x daily goal rate with 80ml feeding tube flush before and after each bolus to meet estimated energy needs. Initiate tube feeds with 120mL bolus at first feeding, if pt tolerates recommend advancing to 180mL bolus at 2nd feeding and then 240mL for 3rd bolus if tolerated. Discharge Plan Admission Admit Date/Time: 08/13/23 23:54 Attending Provider: Nicol Horton Primary Care Provider: Cha Powell Consulting Providers: Loren Marte Mark Discharge Orders/Prescriptions Prescriptions: No Action NK Referrals / Follow Up: Cha Powell, PA [Primary Care Provider] -
--- NOTE | 2023-08-21 11:50 | PCM.DC.SUM ---
Providers Date of Admission: 08/13/23 Date of Discharge: 08/21/23 Primary Care Physician: SILVIO Mejias Consultations 08/16/23 16:31 Consult: Gastroenterology Routine Consulting Provider: Ani [facility] Reason for Consult: aspiration EMERGENT Consult: No MD Notified: Yes Date Notified: 08/16/23 Time Notified: 16:31 Method of Notification: Verbal Reason For Visit: HYPOXIA, PNA Diagnosis Discharge Diagnosis (1) Acute respiratory failure with hypoxia and hypercapnia: Status: Acute Code(s): J96.01 - Acute respiratory failure with hypoxia; J96.02 - Acute respiratory failure with hypercapnia (2) Pneumonia: Status: Acute Code(s): J18.9 - Pneumonia, unspecified organism Medications at Discharge Home Medications acetaminophen 325 mg tablet 650 mg (2 x 325 mg) PO Q4H PRN PRN Fever, pain 1-03/05 #0 tabs 08/21/23 albuterol sulfate 2.5 mg/3 mL (0.083 %) solution for nebulization 2.5 mg (3 mL) inhalation Q2H PRN PRN Dyspnea, wheezing #0 mL 08/21/23 carvedilol 6.25 mg tablet 6.25 mg PO BIDCM #0 tabs 08/21/23 fluconazole 40 mg/mL oral suspension 200 mg (5 mL) G-tube DAILY #0 mL 08/21/23 ipratropium 0.5 mg-albuterol 3 mg (2.5 mg base)/3 mL nebulization soln 3 ml inhalation Q4HWA.RT #0 mL 08/21/23 lactose-reduced food with fiber 0.06 gram-1.5 kcal/mL oral liquid (Jevity 1.5 Jason) 240 ml G-tube 6X/DAY #0 mL 08/21/23 lansoprazole 15 mg capsule,delayed release 30 mg (2 x 15 mg) G-tube BID #0 caps 08/21/23 metoclopramide HCl 10 mg tablet (Reglan) 10 mg feeding tube Q8 #1 TAB 08/21/23 multivitamin-iron 9 mg-folic acid 400 mcg-calcium and minerals tablet (Therapeutic-M) 1 tab feeding tube BREAKFAST #0 tabs 08/21/23 prednisone 10 mg tablet 10 mg feeding tube DAILY #30 tabs 08/21/23 sennosides 8.6 mg-docusate sodium 50 mg tablet (Stool Softener-Stimulant Laxative) 2 tab PO BID PRN PRN Constipation #1 TAB 08/21/23 Hospital Course Procedures Colonoscopy, EGD, EKG, Modified Barium Swallow and - (Chest x-ray) Summary of Care Provided Minutes Spent on Discharge: 40 Hospital Course: Mr. Zuniga is a 63-year-old white male who has a very complex medical history and was discharged recently from this institution on 08/12/2023 AGAINST MEDICAL ADVICE at which time he was admitted for influenza A and an acute exacerbation of COPD. He also had alcohol withdrawal which was treated however he became belligerent and upset. He Radha presented to the emergency department on 08/13/2019 4 in the evening secondary to shortness of breath and difficulty breathing with oxygen saturations in the 50s to 70s. He was placed on a nonrebreather and administered DuoNebs and refused admission however he returned to the emergency department later in the evening on the same day only 1 to 2 hours after he left AGAINST MEDICAL ADVICE with ongoing shortness of breath with marked hypoxia and coughing with intermittent hemoptysis. He complained of a productive cough that had been creamy and green in color. Vital signs on presentation showed temperature of 98, heart rate 105, blood pressure 158/132, respiratory was 27, oxygen saturation was 91% on 6 L nasal cannula. His blood pressure did drop in the emergency department to a seven of 82/70 but improved with IV fluids to 99/70. His CBC showed a leukocytosis with a left shift. VBG demonstrated a pH of 7.31 on a Ventimask. BMP shows chronically elevated CO2 with a normal BUN and creatinine. His troponin was 37. Chest x-ray showed pulmonary emphysematous changes and chronic fibrotic changes with the interval development of patchy airspace disease in the left midlung that was suspicious for pneumonia. He was given vancomycin and Zosyn via IV, and nebulizers, a Zithromax bolus and 1 L normal saline. He was admitted to the PCU for ongoing care. He was maintained on broad-spectrum antibiotics, nebulizers, aggressive pulmonary toilet with incentive spirometry and Acapella and evaluated by speech therapy, Occupational Therapy, and physical therapy. His hemoglobin was noted to drop from 12.8 on admission to a 5.8 on 08/17/2023 and GI was consulted. He was given blood and placed on IV PPI. He was taken for EGD and colonoscopy. EGD showed esophageal plaques consistent with candidiasis, grade C erosive esophagitis with bleeding, normal stomach and duodenum. Given the findings on endoscopy he was started on fluconazole which she will continue for total of 21 days and will remain on oral lansoprazole 30 mg twice daily very at his G-tube. Colonoscopy showed fair prep with diverticulosis in the rectosigmoid, sigmoid, and descending colon with two 1 to 2 mm polyps at the splenic flexure that were removed with hot snare and stool in the rectum, sigmoid colon, hepatic flexure and appendiceal orifice. Repeat colonoscopy was recommended in 1 year. The patient will need outpatient follow-up with gastroenterology for consideration of small bowel capsule endoscopy and ongoing management. I have asked that he follow-up at the next month with Dr. Dickinson. With regards to his modified barium swallow he had severe oropharyngeal dysphagia that is felt by speech therapy to possibly never demonstrate improvement however aggressive speech therapy is recommended to see how much improvement we can get. He will need a follow-up modified barium swallow however he is to be n.p.o. and on a Jackson Free water protocol at the time of discharge. Given these findings a PEG tube was required and placed at the time of endoscopy with Dr. Dickinson. We were able to start tube feed on 08/20/2023 and advance his tube feeds without any difficulty. At the time of discharge she was tolerating his tube feeds well and understands that he is not allowed to have anything to eat or drink by mouth other than his Jackson Free water protocol. I have also asked that he follow-up with pulmonary medicine after discharge within the next month due to his severe COPD at baseline. He is to continue aerosols and a prednisone taper at the time of discharge. He did complete antibiotics for his pneumonia. He was able to be discharged to the halfway facility for ongoing rehab services on 08/21/2023. The patient is extremely high risk for readmission as he has multiple complex medical problems along with issues with compliance with medical therapy. Patient will need a repeat CBC and BMP in the next 5 to 7 days. Patient needs 3 L of oxygen at rest at all times and will likely need up titration during exertion. Hemoglobin at the time of discharge was stable at 10.8 and sodium was stable at 129. Discharge diagnoses: Acute hypoxia secondary to aspiration pneumonia Acute exacerbation of COPD Severe dysphagia Acute blood loss anemia GI bleeding due to erosive esophagitis Esophageal candidiasis Leukocytosis Hyponatremia Severe malnutrition Generalized weakness/debility Hypertension History of alcohol abuse History of tobacco abuse Physical Exam Const alert, oriented x3, no apparent distress and no limitations; Negative for average body habitus, healthy appearing or well nourished Constitutional Narrative: Cachectic appearing, upper middle-aged, white male, sitting up in bed, watching television, appears more comfortable, very pleasant, no agitation today, appears much older than stated age General Appearance: cooperative, comfortable, well kempt and well developed Orientation / Consciousness: awake, oriented to person, oriented to place and oriented to time Exam Limitations: no limitations Nutritional Appearance: cachectic HEENT normocephalic, head/scalp atraumatic and moist oral mucous membranes HEENT Narrative: Dentition is core, Mallampati is 1, no thrush, mild to moderate hearing loss Eyes PERRL, EOMs intact bilaterally and conjunctivae normal Eyes Narrative: Mild conjunctival pallor bilaterally, no scleral icterus Neck no lymphadenopathy, supple, no JVD, thyroid normal and no carotid bruits Neck Narrative: Trachea midline General: trachea midline Resp normal respiratory effort, no retractions, no use of accessory muscles and clear to auscultation bilaterally Resp Narrative: Diffusely diminished but improved rhonchi overall still few scattered rhonchi present however Auscultation: rhonchi; Negative for rales or wheezes Cardio regular rate, regular rhythm, S1 normal heart sound, S2 normal heart sound, no murmurs, no rub, no gallops and no clicks GI normal to inspection, nondistended, normoactive bowel sounds, soft to palpation and non-tender GI Narrative: Scaphoid abdomen, PEG tube in place Extremity no clubbing, cyanosis or edema Extremity Narrative: Decreased lean muscle mass, pedal pulses and radial pulses are 2+ Skin no rashes or lesions noted, skin turgor normal and no jaundice Neuro oriented x3, CN's II-XII intact bilaterally, moves all extremities and no focal motor deficits Neuro Narrative: Marked generalized weakness Speech: speech normal Psych affect normal Psych Narrative: Interacts appropriately, eye contact is good, much more pleasant today Medical Records Data Medical Nutrition Assessment Dietitian: Malnutrition Criteria Met Start: 08/14/23 12:43 Freq: Status: Active Protocol: Document 08/14/23 12:44 LO (Rec: 08/14/23 12:44 LO [id number]) Nutrition Malnutrition Evidence of Malnutrition Exists Yes Malnutrition (severe): Chronic Evidenced By Suboptimal Energy Intake ( Severe),Weight Loss (Severe) Clinical Problem Chronic Disease or Condition Related Malnutrition Etiology severe related to suboptimal appetite Signs/Symptoms as evidenced by estimated PO intakes <75% of needs for >1 month and 43.7lbs (24.4%) weight loss in 5 months Status Active Problem Recommendation Dietitian Recommendations/Changes Continue Regular diet to optimize oral intakes with texture/consistency modifications per MD or FINANCIAL CENTER MANAGER. RD will discontinue EPHP supplements. Will order 118mL Ensure Compact 4x daily with medpass to provide supplemental energy . Weight / BMI Weight Weight: 63.4 kg Body Mass Index (BMI) 17.9 ABG / Lab / Microbiology Data 08/21/23 06:25 08/21/23 06:25 Laboratory: Laboratory Results - last 24 hr 08/21/23 06:25: WBC 15.9 H, RBC 3.35 L, Hgb 10.8 L, Hct 32.2 L, MCV 96.1 H, MCH 32.2 H, MCHC 33.5, RDW Std Deviation 54.9 H, RDW Coeff of Tony 15.9 H, Plt Count 463 H, MPV 9.1, Immature Gran % (Auto) 1.300 H, Neut % (Auto) 86.5 H, Lymph % (Auto) 5.2 L, [place] % (Auto) 6.9, Eos % (Auto) 0.0, Baso % (Auto) 0.1, Absolute Neuts (auto) 13.8 H, Absolute Lymphs (auto) 0.83, Nucleated RBC % 0, Sodium 129 L, Potassium 4.2, Chloride 99, Carbon Dioxide 25.0, Anion Gap 5, BUN 17, Creatinine 0.63 L, Estim Creat Clear Calc 82.55, Est GFR (MDRD) Af Amer 165, Est GFR (MDRD) Non-Af 137, BUN/Creatinine Ratio 27.2 H, Glucose 113 H, Calcium 8.4 L Microbiology: Microbiology 08/18/23 13:24 Stool Stool Occult Blood (MEEK) - Final Occult Blood Positive 08/14/23 07:16 Sputum, Expectorated/Coughed Gram Stain - Final 08/14/23 07:16 Sputum, Expectorated/Coughed Respiratory Culture - Final Presumptive C albicans 08/14/23 15:37 Mucosa - Nasopharyngeal Respiratory Panel (PCR) - Final 08/14/23 07:16 Urine, Clean Catch Legionella Antigen - Final 08/14/23 07:16 Urine, Clean Catch Streptococcus pneumoniae Antigen (M - Final Meaningful Use Info Meaningful Use Diagnoses (Choose all that apply): None applicable Discharge Plan Admission Admit Date/Time: 08/13/23 23:54 Primary Reason for Your Visit: Shortness of Breath Attending Provider: Nicol Horton Primary Care Provider: Cha Powell Consulting Providers: Loren Marte; Arnav Billings Discharge Orders/Prescriptions Prescriptions: New acetaminophen 325 mg Tablet 650 mg PO Q4H PRN PRN (Reason: Fever, pain 1-03/05) Qty: 0 0RF carvedilol 6.25 mg Tablet 6.25 mg PO BIDCM Qty: 0 0RF ipratropium-albuterol 0.5 mg-3 mg(2.5 mg base)/3 mL Solution For Nebulization 3 ml inhalation Q4HWA.RT Qty: 0 0RF albuterol sulfate 2.5 mg /3 mL (0.083 %) Solution For Nebulization 2.5 mg inhalation Q2H PRN PRN (Reason: Dyspnea, wheezing) Qty: 0 0RF fluconazole 40 mg/mL Suspension For Reconstitution 200 mg G-tube DAILY Qty: 0 0RF lansoprazole 15 mg Capsule,Delayed Release(Dr/Ec) 30 mg G-tube BID Qty: 0 0RF Therapeutic-M 9 mg iron-400 mcg Tablet 1 tab feeding tube BREAKFAST Qty: 0 0RF Jevity 1.5 Jason 0.06 gram-1.5 kcal/mL Liquid 240 ml G-tube 6X/DAY Qty: 0 0RF sennosides-docusate sodium [Stool Softener-Stimulant Laxat] 8.6-50 mg Tablet 2 tab PO BID PRN PRN (Reason: Constipation) Qty: 1 0RF prednisone 10 mg tablet 10 mg feeding tube DAILY Qty: 30 0RF Rx Instructions: 4 tablets x 3 days, 3 tablets x 3 days, 2 tablets x 3 days, 1 tablet x 3 days metoclopramide HCl [Reglan] 10 mg tablet 10 mg feeding tube Q8 Qty: 1 0RF Referrals / Follow Up: Yann Amaya DO [Med Staff - Active Staff] - Within 1 Month Pepe Dickinson DO [Med Staff - Active Staff] - Within 1 Month Cha Powell, PA [Primary Care Provider] - Within 1 Month Disposition Disposition (needs filled in before D/C Order can be placed): Home, Self Care Charges/Coding Visit Charges Inpatient E&M: 69716 SNF Disch >30 Min
[2023-08-21] MEDS: Fluconazole Suspension 40 MG/ML 35 ML Bottle 200 MG GT (12:47)
--- NOTE | 2023-08-21 12:48 | PHA.DC_ITS ---
Pharmacy [place] Med Reconciliation Pharmacy Service has performed discharge medication reconciliation for this patient. The patient's discharge medication list was reviewed for discrepancies and discrepancies were resolved. Medications at Discharge Home Medications acetaminophen 325 mg tablet 650 mg (2 x 325 mg) PO Q4H PRN PRN Fever, pain 1- 03/05 #0 tabs 08/21/23 albuterol sulfate 2.5 mg/3 mL (0.083 %) solution for nebulization 2.5 mg (3 mL) inhalation Q2H PRN PRN Dyspnea, wheezing #0 mL 08/21/23 carvedilol 6.25 mg tablet 6.25 mg PO BIDCM #0 tabs 08/21/23 fluconazole 40 mg/mL oral suspension 200 mg (5 mL) G-tube DAILY #0 mL 08/21/23 ipratropium 0.5 mg-albuterol 3 mg (2.5 mg base)/3 mL nebulization soln 3 ml inhalation Q4HWA.RT #0 mL 08/21/23 lactose-reduced food with fiber 0.06 gram-1.5 kcal/mL oral liquid (Jevity 1.5 Jason) 240 ml G-tube 6X/DAY #0 mL 08/21/23 lansoprazole 15 mg capsule,delayed release 30 mg (2 x 15 mg) G-tube BID #0 caps 08/21/23 metoclopramide HCl 10 mg tablet (Reglan) 10 mg feeding tube Q8 #1 TAB 08/21/23 multivitamin-iron 9 mg-folic acid 400 mcg-calcium and minerals tablet (Therapeutic-M) 1 tab feeding tube BREAKFAST #0 tabs 08/21/23 prednisone 10 mg tablet 10 mg feeding tube DAILY #30 tabs 08/21/23 sennosides 8.6 mg-docusate sodium 50 mg tablet (Stool Softener-Stimulant Laxative) 2 tab PO BID PRN PRN Constipation #1 TAB 08/21/23
--- NOTE | 2023-08-21 14:30 | CASEMGMT ---
Patient is ready for discharge go [facility]. [facility] requested enough tube feeds for 48 hours while they wait on their supply. This was okayed by Director of Care Management and pharmacy. LONI called [facility] and arranged for patient to get picked up at 1600 via wheelchair van. LONI sent orders and pickle sorter time to [facility] via [facility]. LONI completed a 7000 in [place] system. Plan: d/c to [facility] under skilled level of care on a convalescent stay. [facility] transported via wheelchair van. Estelita MCKINNON
--- NOTE | 2023-08-21 15:24 | NURSING ---
report called to Rachel varela
[2023-08-21 15:30] VITALS: PULSE 88; RESP 20
[2023-08-21 15:48] VITALS: BP 132/68; PULSE 78; RESP 18; TEMP 36.4; O2SAT 94
== END 2023-08-21 16:14 | disposition skilled nursing facility (03) | DRG 177 ==
LOC: ED 23:57 → PCU 08-14 01:54
PROVIDERS: Anesthesiology; Internal Medicine; Internal Medicine Gastroenterology; Admitting Provider Family Medicine; Emergency Provider Emergency Medicine; PCP Physician Assistant; Visit Provider Internal Medicine
PROC: 0DJ08ZZ Inspection of Upper Intestinal Tract, Via Natural or Artificial Opening Endoscopic (ICD-10-PCS; CPT 43235; principal; 2023-08-19 14:50)
PROC: 0DJD8ZZ Inspection of Lower Intestinal Tract, Via Natural or Artificial Opening Endoscopic (ICD-10-PCS; CPT 45378; principal; 2023-08-20 16:30)
DX: J69.0 Pneumonitis due to inhalation of food and vomit (principal); J96.21 Acute and chronic respiratory failure with hypoxia; E43 Unspecified severe protein-calorie malnutrition; K22.11 Ulcer of esophagus with bleeding; J96.22 Acute and chronic respiratory failure with hypercapnia; B37.81 Candidal esophagitis; J44.1 Chronic obstructive pulmonary disease with (acute) exacerbation; J44.0 Chronic obstructive pulmonary disease with (acute) lower respiratory infection; J45.901 Unspecified asthma with (acute) exacerbation; D62 Acute posthemorrhagic anemia; E87.1 Hypo-osmolality and hyponatremia; Z68.1 Body mass index [BMI] 19.9 or less, adult; Z93.1 Gastrostomy status; I10 Essential (primary) hypertension; F10.10 Alcohol abuse, uncomplicated; D50.9 Iron deficiency anemia, unspecified; E78.5 Hyperlipidemia, unspecified; K63.5 Polyp of colon; K57.30 Diverticulosis of large intestine without perforation or abscess without bleeding; Y95 Nosocomial condition; Z66 Do not resuscitate; R53.81 Other malaise; Z87.891 Personal history of nicotine dependence; Z79.01 Long term (current) use of anticoagulants; Z85.818 Personal history of malignant neoplasm of other sites of lip, oral cavity, and pharynx; R13.12 Dysphagia, oropharyngeal phase
CPT/HCPCS: 36415; 71045; 80048; 80053; 80076; 82274; 82607; 82728; 82746; 82803; 83540; 83550; 83735; 84100; 84484; 85014; 85018; 85025; 85610; 86850; 86900; 86901; 86920; 86922; 87070; 87205; 87449; 87633; 87641; 88305; 88312; 88313; 88341; 88342; 92526; 92610; 93005; 94640; 94668; 94762; 96361; 96374; 97110; 97162; 97166; 97530; 97535; 97803; 99285; 99406; J7030; J7050; J7120; P9016; A4216; J1940; J2405

== ENCOUNTER 2023-08-28 22:01 | Inpatient (IN) | payer MEDICARE, MEDICAID, SELFPAY ==
[2023-08-28 22:03] VITALS: BP 162/112; PULSE 123; RESP 24; TEMP 36.8; O2SAT 85
[2023-08-28 22:13] VITALS: O2SAT 88
[2023-08-28 22:18] VITALS: PULSE 116; RESP 12; RESP 29; O2SAT 90
--- NOTE | 2023-08-28 22:20 | RAD_ITS ---
EXAM: XR CHEST, 1 VIEW CLINICAL INDICATION: ASPIRATION TECHNIQUE: Frontal view of the chest. COMPARISON: Single view chest 08/18/2023 FINDINGS: LUNGS AND PLEURAL SPACES: Hyperinflation. No acute airspace disease. No pneumothorax. No effusion. HEART: Unremarkable. Cardiac silhouette not enlarged. MEDIASTINUM: Central airways and mediastinal contour are unremarkable. BONES/JOINTS: Unremarkable. No acute fracture. SOFT TISSUES: Unremarkable. RAD/Chest 1 View (Portable) IMPRESSION: No acute findings in the chest. COPD changes. Electronically Signed: Jad Green MD at 23:25 EDT ,
[2023-08-28] MEDS: Ampicillin/Sulbactam 3 GM in 0.9% Normal Saline (100mL MB+) 100 ML IV (22:33)
[2023-08-28 22:37] LABS: Absolute Lymphocyte Count 0.73 X10^3/uL (0.83-4.51); Absolute Neutrophil Count 17.3 X10^3/uL (2.0-7.7); Basophil# 0.05 X10^3/uL; Basophil% 0.3 % (0-1); Eosinophil# 0.08 X10^3/uL; Eosinophils% 0.4 % (0-5); Hemoglobin 11.7 g/dL (13.0-16.5); Lymphocyte # 0.73 X10^3/ul (0.83-4.51); Lymphocyte % 3.7 % (19-41); Mean Corp Hgb Conc 34.4 g/dL (32-36); Mean Corpuscular Volume 98.8 fL (80-94); Mean Platelet Vol. 9.5 fl (6.2-12.0); Monocyte# 1.59 X10^3/uL; NRBC Flagged by Analyzer 0 % (0-5); Neutrophil # 17.29 X10^3/uL (2.7-7.7); Neutrophil % 87.2 % (47-70); POSITIVE DIFFERENTIAL YES; Platelet Count 496 K/mm3 (150-450); RBC Distribution Width SD 57.2 fl (35.1-43.9); Red Blood Count 3.44 M/mm3 (4.6-6.2); White Blood Count 19.8 K/mm3 (4.4-11.0)
[2023-08-28 22:38] LABS: Differential Indicated SCAN CRITERIA MET
[2023-08-28 22:49] LABS: Anion Gap 2 (5-15); BUN 22 mg/dL (7-18); BUN/Creat Ratio 38.2 RATIO (10-20); Calcium,Total 9.1 mg/dL (8.5-10.1); Chloride 92 mmol/L (98-107); Creatinine, Serum 0.58 mg/dL (0.70-1.30); EST Glomerular Filtration Rate 151 mL/min (>60); Est Glom Filt Rate - Afr Amer 182 mL/min (>60); Glucose 136 mg/dL (74-106); Potassium 4.5 mmol/L (3.5-5.1); Sodium Level 129 mmol/L (136-145)
[2023-08-28 22:51] LABS: Lactic Acid 0.5 mmol/L (0.4-1.9)
[2023-08-28 23:02] VITALS: BP 124/92; PULSE 118; RESP 18; O2SAT 91
[2023-08-28 23:06] LABS: Differential Comment SCANNED
[2023-08-28 23:10] LABS: Procalcitonin < 0.04 ng/mL (0.00-0.09)
--- NOTE | 2023-08-28 23:49 | HP.PCM.HOS_ITS ---
HPI - General General Date of Admission: 08/28/23 Date of Service: 08/28/23 Chief Complaint: Dyspnea after eating, supposed to be NPO w/ PEG feeds only. HPI Narrative The patient is a 63 y/o M w/ PMHx: COPD/Asthma, Tobacco use, Hx Throat CA s/p unclear type surgery but otherwise unclear intervention history, HTN, HLD, Severe protein calorie malnutrition, History of EtOH abuse (sober since recent presentation), Chronic Hyponatremia, recent discharge 08/21/23 following prolonged admission unfortunately leaving AMA and returning with treatment of acute hypoxic respiratory failure secondary to aspiration pneumonia complicated by severe dysphagia and appropriate oral intake, acute COPD exacerbation, acute blood loss anemia with acute on chronic anemia secondary to GI bleed from erosive esophagitis complicated by esophageal candidiasis who now represents to the [facility] ED on 08/28/2023 secondary to history of unfortunately on day of present ation in the evening sneaking a roommates food at his skilled facility including potentially several chocolate candies as well as lifesavers and immediately following severe coughing, dyspnea eventually with evidence of respiratory distress and severe wheezing prompting EMS call with noted significant hypoxia with transition eventually to ED for evaluation. Workup in the ED included T98.2, heart rate initially 123, BP 162/112, respiratory rate 24, noted to be 85% on room air eventually transition to high flow with most recent vital signs T98.6, heart rate 110, BP 131/83, respiratory rate 22, 91% on 50% FiO2 BiPAP, CBC with WBC 19.8 (ongoing steroids since recent DC), hemoglobin 11.7, MCV 98.8, platelet 496 with left shift and lymphopenia, BMP with sodium 129, chloride 92, carbon oxide 35, BUN/creatinine 22/0.58, glucose 136, lactic acid 0.5, procalcitonin less than 0.04, blood culture x 2 pending per ED, chest x-ray with COPD type changes with no acute cardiopulmonary findings otherwise. In the ED patient administered IV Unasyn therapy x 1 given concerns for aspiration event to be cautious. [facility] Medical History Asthma Chronic hyponatremia COPD (chronic obstructive pulmonary disease) History of alcohol abuse History of GI bleed History of throat cancer History of tobacco use Hypertension Severe malnutrition Home Medications albuterol sulfate 2.5 mg/3 mL (0.083 %) solution for nebulization 2.5 mg (3 mL) inhalation Q2H PRN PRN Dyspnea, wheezing #0 mL 08/21/23 [Rx Last Taken Unknown] fluconazole 40 mg/mL oral suspension 200 mg (5 mL) G-tube DAILY #0 mL 08/21/23 [Rx Last Taken Unknown] ipratropium 0.5 mg-albuterol 3 mg (2.5 mg base)/3 mL nebulization soln 3 ml inhalation Q4HWA.RT #0 mL 08/21/23 [Rx Last Taken Unknown] lactose-reduced food with fiber 0.06 gram-1.5 kcal/mL oral liquid (Jevity 1.5 Jason) 240 ml G-tube 6X/DAY #0 mL 08/21/23 [Rx Last Taken Unknown] lansoprazole 15 mg capsule,delayed release 30 mg (2 x 15 mg) G-tube BID #0 caps 08/21/23 [Rx Last Taken Unknown] metoclopramide HCl 10 mg tablet (Reglan) 10 mg feeding tube Q8 #1 TAB 08/21/23 [Rx Last Taken Unknown] multivitamin-iron 9 mg-folic acid 400 mcg-calcium and minerals tablet (Therapeutic-M) 1 tab feeding tube BREAKFAST #0 tabs 08/21/23 [Rx Last Taken Unknown] prednisone 10 mg tablet 10 mg feeding tube DAILY #30 tabs 08/21/23 [Rx Last Take n Unknown] sennosides 8.6 mg-docusate sodium 50 mg tablet (Stool Softener-Stimulant Laxative) 2 tab PO BID PRN PRN Constipation #1 TAB 08/21/23 [Rx Last Taken Unknown] acetaminophen 325 mg tablet 650 mg feeding tube Q4H PRN PRN Fever, pain 1-03/0508/28/23 [History Last Taken Unknown] carvedilol 6.25 mg tablet 6.25 mg feeding tube BIDCM 08/28/23 [History Last Taken Unknown] guaifenesin 200 mg tablet (Expectorant) 600 mg PO BID 08/28/23 [History Last Taken Unknown] magnesium oxide 400 mg feeding tube DAILY 08/28/23 [History Last Taken Unknown] melatonin 5 mg capsule 5 mg feeding tube DAILY 08/28/23 [History Last Taken Unknown] Allergy/AdvReac Type Severity Reaction Status Date / Time No Known Allergies Allergy Verified 08/13/23 21:05 Family History Mother No problems noted. Father No problems noted. Surgical History History of throat surgery Social History (Updated 08/29/23 @ 01:[address] Loren Marte MD) household members: none housing: [facility] current occupational status: employed Smoking Status: Former smoker how long ago did patient quit smoking: Quit during most recent admission 08/11/23. alcohol intake: former details: Prior 5 shots hard liquor, several beers daily, none since 07/2023 admission substance use type: does not use ROS ROS Narrative Admission Review of Systems: CONSTITUTIONAL: No weight loss, fever, chills, + weakness or fatigue. HEENT: Eyes: No visual loss, blurred vision, double vision or yellow sclerae. Ears, Nose, Throat: No hearing loss, sneezing, congestion, runny nose or sore throat. SKIN: No rash or itching, lesions, wounds. CARDIOVASCULAR: No chest pain, chest pressure or chest discomfort, palpitations, edema, orthopnea, syncopal events. RESPIRATORY: + Dyspnea, respiratory distress, wheezing. No hemoptysis. GASTROINTESTINAL: + GT in place. No anorexia, nausea, vomiting or diarrhea, abdominal pain, melena, BRBPR. GENITOURINARY: No dysuria, frequency, urgency or retention. NEUROLOGICAL: No headache, dizziness, syncope, paralysis, ataxia, numbness or tingling in the extremities, focal weakness, change in bowel or bladder control, seizure. MUSCULOSKELETAL: + muscle, back pain, joint pain or stiffness. HEMATOLOGIC: + Anemia, easy bleeding/bruising. LYMPHATICS: No enlarged nodes. No history of splenectomy. PSYCHIATRIC: + History of anxiety, possibly underlying depression but uncertain. ENDOCRINOLOGIC: No reports of sweating, cold or heat intolerance. No polyuria or polydipsia. ALLERGIES: + History of asthma. Vital Signs Vital Signs Vital Signs: 08/28/23 22:03 08/28/23 22:13 08/28/23 22:18 Temperature 98.2 F Temperature Source Axillary Pulse Rate 123 H 116 H Respiratory Rate 24 H 29 H Respiratory Effort Labored Respiratory Pattern Bradypnea Tachypnea Blood Pressure 162/112 H Blood Pressure Mean 128 Pulse Ox 85 90 Oxygen Delivery Method Room Air High Flow Oxygen Flow Rate (L/min) 15 Fraction of Inspired Oxygen (FIO2) 50 08/28/23 23:02 Temperature Temperature Source Pulse Rate 118 H Respiratory Rate 18 Respiratory Effort Respiratory Pattern Blood Pressure 124/92 H Blood Pressure Mean 102 Pulse Ox 91 Oxygen Delivery Method Bi-pap Oxygen Flow Rate (L/min) Fraction of Inspired Oxygen (FIO2) 50 Physical Exam Narrative Physical Examination: General: Awake, alert, oriented to self, place and recent events, fatigued, on BIPAP in the ED, ongoing mildly increased RR but notes feeling improved from initial presentation, respiratory distress improving. Skin: Normal color, normal turgor, no icterus, no cyanosis except occasional staged ecchymoses, bilateral lower extremity venous stasis skin changes. HEENT: AT/NC, EOMI, PERRLA, BIPAP in place, dry MM, difficult to discern carotid bruits or JVD given BIPAP/referred sounds. Lungs: Significantly diminished, greater bases, tachypneic, expiratory wheezing diffusely, BIPAP in place, respiratory distress improving, no rales or rhonchi. Heart: Moderately tachycardic with regular rhythm; no gallop, rub audible. Abdomen: Soft, thin cachectic habitus, NTTP, ND, normal BS, no markedly appreciated HSM. Extremities: No cyanosis, no clubbing, no marked peripheral edema. Neurological: Patient awake, alert, oriented as noted, cognitive function appears baseline intact; pupils equally reactive to light and accommodation, cranial nerves grossly normal, moving all 4 extremities, strength severely globally decreased. Psychiatric: Affect appears currently fatigued, BIPAP in place, does have underlying anxiety, suspect depression also. Results Lab / Micro Data 08/28/23 22:08 08/28/23 22:08 Labs: Laboratory Results - last 24 hr 08/28/23 22:08: WBC 19.8 H, RBC 3.44 L, Hgb 11.7 L, Hct 34.0 L, MCV 98.8 H, MCH 34.0 H, MCHC 34.4, RDW Std Deviation 57.2 H, RDW Coeff of Tony 16.0 H, Plt Count 496 H, MPV 9.5, Immature Gran % (Auto) 0.400, Neut % (Auto) 87.2 H, Lymph % (Auto) 3.7 L, [place] % (Auto) 8.0, Eos % (Auto) 0.4, Baso % (Auto) 0.3, Absolute Neuts (auto) 17.3 H, Absolute Lymphs (auto) 0.73 L, Nucleated RBC % 0, Differential Comment SCANNED, Diff Path Review September, Sodium 129 L, Potassium 4.5, Chloride 92 L, Carbon Dioxide 35.0 H, Anion Gap 2 L, BUN 22 H, Creatinine 0.58 L, Est GFR (MDRD) Af Amer 182, Est GFR (MDRD) Non-Af 151, BUN/Creatinine Ratio 38.2 H, Glucose 136 H, Lactic Acid 0.5, Calcium 9.1, Procalcitonin < 0.04 Imaging Radiology Impression Chest X-Ray 08/28/23 22:20 IMPRESSION: No acute findings in the chest. COPD changes. Electronically Signed: Jad Green MD at 23:25 EDT , Assessment & Plan Assessment/Plan (1) Acute and chronic respiratory failure with hypoxia: (2) COPD exacerbation: (3) Aspiration pneumonitis: PLAN: Plan The patient is a 63 y/o M w/ PMHx: COPD/Asthma, Tobacco use, Hx Throat CA s/p unclear type surgery but otherwise unclear intervention history, HTN, HLD, Severe protein calorie malnutrition, History of EtOH abuse (sober since recent presentation), Chronic Hyponatremia, recent discharge 08/21/23 following prolonged admission unfortunately leaving AMA and returning with treatment of acute hypoxic respiratory failure secondary to aspiration pneumonia complicated by severe dysphagia and appropriate oral intake, acute COPD exacerbation, acute blood loss anemia with acute on chronic anemia secondary to GI bleed from erosive esophagitis complicated by esophageal candidiasis who now represents to the [facility] ED on 08/28/2023 secondary to history of unfortunately on day of presentation in the evening sneaking a roommates food at his skilled facility including potentially several chocolate candies as well as lifesavers and immediately following severe coughing, dyspnea eventually with evidence of respiratory distress and severe wheezing prompting EMS call with noted significant hypoxia with transition eventually to ED for evaluation. #1. Acute Hypoxic Respiratory Failure on Chronic secondary to Acute Aspiration/Pneumonitis secondary to Inappropriate Food Oral intake despite strict NPO status w/ Chronic Severe Dysphagia complicated by Acute on Chronic COPD/Asthma Exacerbation: Will admit to PCU as SD given BIPAP continued usage, will transition to NC and maintain on oxygen with wean as tolerated to room air as able, continue ATC duonebs, PRN albuterol, IV methylprednisolone, HOB, IS parameters, will repeat CXR in AM to assure no developing PNA but again given situation suspect pneumonitis secondary to inappropriate oral intake, PT/OT/ST/CM consultation for discharge planning with continued education that patient cannot take po with continued G-tube feeds and G-tube care. #2. Recent ABLA with Acute on Chronic Anemia secondary to Acute Erosive Esophagitis complicated by Esophageal Candidiasis: Admission Hgb 11.7, MCV 98.8, recent discharge 08/21/2023 hemoglobin 10.8 however previous admission he did decrease down to 5.3 requiring transfusion during that admission as well as GI evaluation and endoscopies. Will continue PPI as well as fluconazole to completion. Will maintain n.p.o. status. Continue G-tube care. #3. Chronic hyponatremia: History of previous alcohol abuse, admission sodium 129, chloride 92, prior to discharge sodium level 129, stable, will continue to trend CMP. #4. History of alcohol abuse: Encouraged continued sobriety although current presentation given frequent hospitalization and skilled facility placement certainly has been a controlled situation thus high risk when he returns out of skilled care. #5. History of tobacco use: Encourage continued tobacco cessation. #6. History throat cancer: Unclear specific type, status post resection but unclear specific intervention and unclear interventions further for his cancer, encourage continued outpatient follow-up as previously arranged with oncology. #7. Severe protein calorie malnutrition: Evidenced by significantly reduced BMI, obvious muscle and fat loss, cachectic appearing, nutrition consulted for recommendations. #8. Hypertension: Will continue patient home Coreg regimen, PRN IV hydralazine. #9. Hyperlipidemia: Not on regimen, defer to outpatient. #10. DVT prophylaxis: SCDs, defer chemoprophylaxis given recent GI bleed. #11. CODE status: Patient does not have healthcare power of business technology architect or living will in place. He notes that he would want a friend Salinas Salazar to be his ultimate decision maker who is also his primary contact in the [employer] system. Discussed CODE status at length including difference between FULL code, DNR-CCA and DNR-CC status. Confirmed again Code status DNR-CCA, no intubation. Advanced Care Planning Face to Face Time: 16 minutes. Charges/Coding Visit Charges Inpatient E&M: 61194 Init Hosp L3 Procedures Hospitalists Procedures: 76066 Advncd Care Plan 30 Min
[2023-08-29] VITALS (24 sets, daily range): BP systolic 88–149; BP diastolic 47–115; PULSE 67–113; RESP 12–31; TEMP 36.2–37.1; O2SAT 91–100; BMI 16.4
--- NOTE | 2023-08-29 00:07 | EX.ED.DYSGE1 ---
HPI History of Present Illness Chief Complaint: Shortness of Breath Informant: patient, EMS and SNF Narrative Narrative: Patient is a 63-year-old male with past medical history of COPD as well as recent anemia and pneumonia. He was discharged from the hospital roughly 1 week ago secondary to this. He is supposed to be n.p.o. and take all of his nutrition through a PEG tube. Reportedly this evening he got into his roommates candy and states he ate a life saver. After doing this he was having difficulty breathing and his pulse ox dropped and secondary to his EMS was called to bring him in for evaluation. PFSH PFS Medical History Alcohol abuse Asthma COPD (chronic obstructive pulmonary disease) History of throat cancer Hypertension Severe malnutrition Tobacco use Home Medications albuterol sulfate 2.5 mg/3 mL (0.083 %) solution for nebulization 2.5 mg (3 mL) inhalation Q2H PRN PRN Dyspnea, wheezing #0 mL 08/21/23 [Rx Last Taken Unknown] fluconazole 40 mg/mL oral suspension 200 mg (5 mL) G-tube DAILY #0 mL 08/21/23 [Rx Last Taken Unknown] ipratropium 0.5 mg-albuterol 3 mg (2.5 mg base)/3 mL nebulization soln 3 ml inhalation Q4HWA.RT #0 mL 08/21/23 [Rx Last Taken Unknown] lactose-reduced food with fiber 0.06 gram-1.5 kcal/mL oral liquid (Jevity 1.5 Jason) 240 ml G-tube 6X/DAY #0 mL 08/21/23 [Rx Last Taken Unknown] lansoprazole 15 mg capsule,delayed release 30 mg (2 x 15 mg) G-tube BID #0 caps 08/21/23 [Rx Last Taken Unknown] metoclopramide HCl 10 mg tablet (Reglan) 10 mg feeding tube Q8 #1 TAB 08/21/23 [Rx Last Taken Unknown] multivitamin-iron 9 mg-folic acid 400 mcg-calcium and minerals tablet (Therapeutic-M) 1 tab feeding tube BREAKFAST #0 tabs 08/21/23 [Rx Last Taken Unknown] prednisone 10 mg tablet 10 mg feeding tube DAILY #30 tabs 08/21/23 [Rx Last Taken Unknown] sennosides 8.6 mg-docusate sodium 50 mg tablet (Stool Softener-Stimulant Laxative) 2 tab PO BID PRN PRN Constipation #1 TAB 08/21/23 [Rx Last Taken Unknown] acetaminophen 325 mg tablet 650 mg feeding tube Q4H PRN PRN Fever, pain 1-03/0508/28/23 [History Last Taken Unknown] carvedilol 6.25 mg tablet 6.25 mg feeding tube BIDCM 08/28/23 [History Last Taken Unknown] guaifenesin 200 mg tablet (Expectorant) 600 mg PO BID 08/28/23 [History Last Taken Unknown] magnesium oxide 400 mg feeding tube DAILY 08/28/23 [History Last Taken Unknown] melatonin 5 mg capsule 5 mg feeding tube DAILY 08/28/23 [History Last Taken Unknown] Allergy/AdvReac Type Severity Reaction Status Date / Time No Known Allergies Allergy Verified 08/13/23 21:05 Family History Mother No problems noted. Father No problems noted. Surgical History History of throat surgery Social History household members: none housing: other current occupational status: employed Smoking Status: Former smoker how long ago did patient quit smoking: Patient notes he quit during recent admission 08/11/23. alcohol intake: current alcohol intake frequency: 3 or more drinks per day details: ~ 5 shots hard liquor, several beers daily substance use type: does not use ROS ROS ED Constitutional Constitutional ED: Denies chills or fever(s) Eyes Eyes: Denies change in vision ENT ENT ED: Denies sore throat Cardiovascular Cardiovascular: Denies chest pain Respiratory/Chest Respiratory/Chest: Reports cough and dyspnea Gastrointestinal Gastrointestinal: Denies abdominal pain, diarrhea, nausea or vomiting Genitourinary Genitourinary ED: Denies dysuria Musculoskeletal Musculoskeletal: Denies myalgias Integumentary Denies rash Neurologic Neurologic: Denies headache(s) Hematologic/Lymphatic Hematologic/Lymphatic: Denies easy bleeding or easy bruising EXAM Physical Exam Const Vital Signs: 08/28/23 22:03 08/28/23 22:13 08/28/23 22:18 Temperature 98.2 F Temperature Source Axillary Pulse Rate 123 H 116 H Respiratory Rate 24 H 29 H Respiratory Effort Labored Respiratory Pattern Bradypnea Tachypnea Blood Pressure 162/112 H Blood Pressure Mean 128 Pulse Ox 85 90 Oxygen Delivery Method Room Air High Flow Oxygen Flow Rate (L/min) 15 Fraction of Inspired Oxygen (FIO2) 50 08/28/23 23:02 Temperature Temperature Source Pulse Rate 118 H Respiratory Rate 18 Respiratory Effort Respiratory Pattern Blood Pressure 124/92 H Blood Pressure Mean 102 Pulse Ox 91 Oxygen Delivery Method Bi-pap Oxygen Flow Rate (L/min) Fraction of Inspired Oxygen (FIO2) 50 Positive well developed and cachectic General Appearance ED: well developed and cachectic; Negative for pallor Nutritional Appearance: cachectic HEENT Reports dry mucous membranes HEENT Narrative: No tongue or lip swelling no oral lesions no airway edema or compromise Mouth ED: Yes dry mucous membranes Mouth: dry mucous membranes Eyes PERRL and EOMs intact bilaterally General Eye ED: Negative for scleral icterus Neck supple and no JVD Chest Wall palpation of chest normal Resp Resp Narrative: Patient is tachypneic with accessory muscle use Breath sounds are diminished throughout with diffuse expiratory wheeze. However wheezing appears more prevalent in the right lower lobe with both inspiratory and expiratory wheezes noted at the site Cardio regular rate and regular rhythm Rate: tachycardic GI normal to inspection, nondistended, normoactive bowel sounds, non-tender and non-distended GI Narrative: PEG tube in place without surrounding soft tissue changes to suggest infection No voluntary guarding or rigidity or pulsatile mass Auscultation: normoactive bowel sounds Palpation: soft Extremity normal to inspection Extremity Narrative: No asymmetric edema no pitting edema negative Homans' sign bilaterally Neuro oriented x3 and CN's II-XII intact bilaterally Sensorium / Orientation: alert Psych mental status grossly normal Skin no rashes or lesions noted and no wounds General Skin Exam: Negative for jaundice or pallor MDM MDM MDM Narrative Medical decision making narrative: Patient arrived to the ER tachycardic and tachypneic with signs of respiratory distress. Pulse ox was in the low 80s on room air. History is concerning for aspiration pneumonitis with concern for developing aspiration pneumonia. As he recently was admitted secondary to pneumonia and anemia this is also a possibility. Basic blood work was obtained which shows leukocytosis at 19.8 but chart review reveals this is chronic in nature and patient's been discharged on steroids which would account for the elevated white blood cell count. His procalcitonin and lactic acid are normal going against acute infection. The patient did not have a pneumothorax or pleural effusion on chest x-ray. With the history/concern for aspiration pneumonia developing he was started on Unasyn. Because of the aspiration and increased work of breathing he was placed on BiPAP. With this his work of breathing improved as well as his pulse ox. As the patient is high risk for progressing to pneumonia and respiratory failure medicine was contacted and they agreed except the patient for admission at this time Lab Data Attestation: I reviewed the patient's lab results. Labs: Laboratory Results - last 24 hr 08/28/23 22:08 WBC 19.8 H RBC 3.44 L Hgb 11.7 L Hct 34.0 L MCV 98.8 H MCH 34.0 H MCHC 34.4 RDW Std Deviation 57.2 H RDW Coeff of Tony 16.0 H Plt Count 496 H MPV 9.5 Immature Gran % (Auto) 0.400 Neut % (Auto) 87.2 H Lymph % (Auto) 3.7 L [place] % (Auto) 8.0 Eos % (Auto) 0.4 Baso % (Auto) 0.3 Absolute Neuts (auto) 17.3 H Absolute Lymphs (auto) 0.73 L Nucleated RBC % 0 Differential Comment SCANNED Diff Path Review May foll Sodium 129 L Potassium 4.5 Chloride 92 L Carbon Dioxide 35.0 H Anion Gap 2 L BUN 22 H Creatinine 0.58 L Est GFR (MDRD) Af Amer 182 Est GFR (MDRD) Non-Af 151 BUN/Creatinine Ratio 38.2 H Glucose 136 H Lactic Acid 0.5 Calcium 9.1 Procalcitonin < 0.04 Radiography Diagnostic Testing: Clinical Impression(s) from Imaging Studies Chest X-Ray 08/28/23 22:20 IMPRESSION: No acute findings in the chest. COPD changes. Electronically Signed: Jad Green MD at 23:25 EDT , Chest x-ray as interpreted by the emergency medicine physician reveals COPD changes without acute infiltrate pneumothorax or pleural effusion Management Discussion w/another healthcare provider: Hospitalist Critical Care Time Critical Care Time: Yes Critical care time (excluding procedures): 30-74 minutes (Critical care time of 31 minutes), Discussing w/Patient &/or Family/Catal[employer] And Special [employer] Manager and Arranging Admission or Transfer Discharge Plan Dx/Rx/DC Orders Clinical Impression: Acute and chronic respiratory failure with hypoxia, COPD exacerbation, Aspiration pneumonitis Disposition Disposition: Acute Care [facility]
[2023-08-29] MEDS: 0.9% Normal Saline (1000mL) 1,000 ML 100 ML IV (02:27)
[2023-08-29] MEDS: Albuterol 2.5 MG/3 ML VIAL.NEB. INHALATION (04:33)
--- NOTE | 2023-08-29 05:55 | RAD_ITS ---
EXAM: XR CHEST, 1 VIEW CLINICAL INDICATION: Dyspnea, aspiration, eval PNA TECHNIQUE: Frontal view of the chest. COMPARISON: Single view chest 08/28/2023 FINDINGS: LUNGS AND PLEURAL SPACES: Hyperinflation. No pneumothorax. No effusion. HEART: Unremarkable. Cardiac silhouette not enlarged. MEDIASTINUM: Central airways and mediastinal contour are unremarkable. BONES/JOINTS: Unremarkable. No acute fracture. SOFT TISSUES: Unremarkable. RAD/Chest 1 View (Portable) IMPRESSION: No acute findings in the chest. COPD changes. Electronically Signed: Jad Green MD at 6:55 EDT ,
[2023-08-29] MEDS: Ipratropium/Albuterol Sulfate 3 ML AMPUL.NEB INHALATION ×4 (07:14→19:04)
[2023-08-29 07:26] LABS: Absolute Lymphocyte Count 0.24 X10^3/uL (0.83-4.51); Absolute Neutrophil Count 21.2 X10^3/uL (2.0-7.7); Basophil# 0.04 X10^3/uL; Basophil% 0.2 % (0-1); Eosinophil# 0.01 X10^3/uL; Hematocrit 28.3 % (40-54); Hemoglobin 9.5 g/dL (13.0-16.5); Lymphocyte # 0.24 X10^3/ul (0.83-4.51); Lymphocyte % 1.1 % (19-41); Mean Corp Hgb Conc 33.6 g/dL (32-36); Mean Corpuscular Hgb 33.6 pg (27.0-32.0); Mean Platelet Vol. 9.6 fl (6.2-12.0); Monocyte# 0.63 X10^3/uL; Monocyte% 2.8 % (0-10); NRBC Flagged by Analyzer 0 % (0-5); Neutrophil # 21.24 X10^3/uL (2.7-7.7); Neutrophil % 95.5 % (47-70); POSITIVE DIFFERENTIAL YES; Platelet Count 383 K/mm3 (150-450); RBC Distribution Width SD 58.1 fl (35.1-43.9); Red Blood Count 2.83 M/mm3 (4.6-6.2); White Blood Count 22.2 K/mm3 (4.4-11.0)
[2023-08-29 07:32] LABS: Differential Indicated SCAN CRITERIA MET
[2023-08-29 08:08] LABS: Differential Comment SCANNED
[2023-08-29 08:23] LABS: ALB/GLOB Ratio 0.6 RATIO (0.9-2.4); AST(SGOT) 16 U/L (15-37); Alanine Aminotransfer ALT/SGPT 18 U/L (16-61); Albumin, Serum 2.2 g/dL (3.2-5.0); Alkaline Phosphatase 89 U/L (45-117); Anion Gap 4 (5-15); BUN 22 mg/dL (7-18); BUN/Creat Ratio 42.7 RATIO (10-20); Calcium,Total 8.9 mg/dL (8.5-10.1); Chloride 97 mmol/L (98-107); Creatinine, Serum 0.52 mg/dL (0.70-1.30); EST Glomerular Filtration Rate 171 mL/min (>60); Est Glom Filt Rate - Afr Amer 207 mL/min (>60); Estimated Creatinine Clearance 75.65 ml/min; Glucose 111 mg/dL (74-106); Potassium 5.1 mmol/L (3.5-5.1); Protein, Total 6.2 g/dL (6.4-8.2); Sodium Level 131 mmol/L (136-145)
[2023-08-29] MEDS: Magnesium Chloride 64 MG Delay Rel.Tablet 128 MG PO (08:40)
[2023-08-29] MEDS: Lansoprazole 15 MG Capsule.DR 30 MG GT ×2 (08:40→21:40)
[2023-08-29] MEDS: Carvedilol 6.25 MG Tablet GT ×2 (08:40→16:57)
[2023-08-29] MEDS: Multivitamins,Ther W-Minerals Tablet 1 TABLET GT (08:41)
[2023-08-29] MEDS: Jevity 1.5. 1,000 ML Bottle 240 ML GT ×5 (08:41→21:40)
[2023-08-29] MEDS: Fluconazole Suspension 40 MG/ML 35 ML Bottle 200 MG GT (08:42)
--- NOTE | 2023-08-29 12:31 | PCM.PN.HOSP ---
Reason for Visit Reason for Visit: Diagnoses Chronic obstructive pulmonary disease with (acute) exacerbation (08/28/23) Pneumonitis due to inhalation of food and vomit (08/28/23) Acute and chronic respiratory failure with hypoxia (08/28/23) Subjective Subjective Patient admitted overnight after an episode of aspiration on food at his assisted facility. Patient seen at bedside this morning. Sitting comfortably in bed, conversing normally, in no acute distress. Patient does have mild increased work of breathing on 6 L nasal cannula but denies any subjective shortness of breath or pain with breathing. Patient feels moderately improved from overnight. Denies any fevers or chills today. Denies any other acute concerns this time. Objective Data Objective Data Vital Signs: Vital Signs Temp Pulse Resp BP Pulse Ox O2 Del Method O2 Flow Rate 97.7 F L 73 20 H 117/74 93 Nasal Cannula 5 08/29/23 12:10 08/29/23 12:10 08/29/23 12:10 08/29/23 12:10 08/29/23 12:10 08/29/23 12:10 08/29/23 12:10 FiO2 50 08/29/23 04:41 Oxygen Flow Rate (L/min) 5 Oxygen Delivery Method Nasal Cannula Weight: 58.1 kg Body Mass Index (BMI) 16.4 Intake & Output: Intake and Output for Last 24 Hours 08/27/23 08/28/23 08/29/23 23:59 23:59 23:59 Intake Total 112 / 112 1700 / 1700 Output Total 250 / 250 Balance 112 / 112 1450 / 1450 Lab / Micro Data 08/29/23 06:45 08/29/23 06:45 Labs: Laboratory Results - last 24 hr 08/28/23 22:08: WBC 19.8 H, RBC 3.44 L, Hgb 11.7 L, Hct 34.0 L, MCV 98.8 H, MCH 34.0 H, MCHC 34.4, RDW Std Deviation 57.2 H, RDW Coeff of Tony 16.0 H, Plt Count 496 H, MPV 9.5, Immature Gran % (Auto) 0.400, Neut % (Auto) 87.2 H, Lymph % (Auto) 3.7 L, [place] % (Auto) 8.0, Eos % (Auto) 0.4, Baso % (Auto) 0.3, Absolute Neuts (auto) 17.3 H, Absolute Lymphs (auto) 0.73 L, Nucleated RBC % 0, Differential Comment SCANNED, Diff Path Review May foll, Sodium 129 L, Potassium 4.5, Chloride 92 L, Carbon Dioxide 35.0 H, Anion Gap 2 L, BUN 22 H, Creatinine 0.58 L, Est GFR (MDRD) Af Amer 182, Est GFR (MDRD) Non-Af 151, BUN/Creatinine Ratio 38.2 H, Glucose 136 H, Lactic Acid 0.5, Calcium 9.1, Procalcitonin < 0.04 08/29/23 06:45: WBC 22.2 H, RBC 2.83 L, Hgb 9.5 L, Hct 28.3 L, MCV 100.0 H, MCH 33.6 H, MCHC 33.6, RDW Std Deviation 58.1 H, RDW Coeff of Tony 16.0 H, Plt Count 383, MPV 9.6, Immature Gran % (Auto) 0.400, Neut % (Auto) 95.5 H, Lymph % (Auto) 1.1 L, [place] % (Auto) 2.8, Eos % (Auto) 0.0, Baso % (Auto) 0.2, Absolute Neuts (auto) 21.2 H, Absolute Lymphs (auto) 0.24 L, Nucleated RBC % 0, Differential Comment SCANNED, Sodium 131 L, Potassium 5.1, Chloride 97 L, Carbon Dioxide 30.0, Anion Gap 4 L, BUN 22 H, Creatinine 0.52 L, Estim Creat Clear Calc 75.65, Est GFR (MDRD) Af Amer 207, Est GFR (MDRD) Non-Af 171, BUN/Creatinine Ratio 42.7 H, Glucose 111 H, Calcium 8.9, Total Bilirubin 0.50, AST 16, ALT 18, Alkaline Phosphatase 89, Total Protein 6.2 L, Albumin 2.2 L, Globulin 4.0, Albumin/Globulin Ratio 0.6 L Radiography Diagnostic Testing: Radiology Impression Chest X-Ray 08/28/23 22:20 IMPRESSION: No acute findings in the chest. COPD changes. Electronically Signed: Jad Green MD at 23:25 EDT , Chest X-Ray 08/29/23 05:55 IMPRESSION: No acute findings in the chest. COPD changes. Electronically Signed: Jad Green MD at 6:55 EDT Reading Location ID and State: [facility] / [place] Tel , Service support , Physical Exam Const alert, oriented x3 and no apparent distress Constitutional Narrative: Pleasant elderly male, thin and cachectic appearing, sitting up comfortably bed, mild increased work of breathing noted but patient otherwise conversing normally and in no acute distress. General Appearance: cooperative and comfortable HEENT normocephalic, head/scalp atraumatic, hearing grossly normal bilaterally and nasal mucous membranes and turbinates normal Mouth: dry mucous membranes Eyes PERRL, EOMs intact bilaterally and conjunctivae normal Neck full ROM Chest inspection of chest normal Resp normal respiratory effort, normal air movement, no use of accessory muscles and clear to auscultation bilaterally Resp Narrative: Mild increased work of breathing noted on 6 L nasal cannula. Mildly decreased breath sounds bilaterally, worse at lung bases, no wheezing or crackles noted. Cardio regular rate, regular rhythm, no murmurs and peripheral pulses 2+ throughout GI normal to inspection, nondistended, normoactive bowel sounds, soft to palpation, non-tender and non-distended Back/Spine normal ROM Extremity normal to inspection, full ROM and no pedal edema Skin no rashes or lesions noted Neuro moves all extremities and no focal motor deficits Speech: speech normal Psych mental status grossly normal Assessment & Plan Assessment/Plan (1) Aspiration pneumonitis: (2) Acute and chronic respiratory failure with hypoxia: PLAN: Plan Patient is a 63-year-old male who presented [facility] ED on 08/28/2023 from SNF with acute shortness of breath after an episode of aspiration on food at his facility. 1. Acute on chronic hypoxic respiratory failure secondary to acute aspiration event with suspected aspiration pneumonitis, improving; history of chronic severe dysphagia with strict n.p.o. status Recent hospitalizations from 08/06-08/11 and 08/12-08/20, see discharge summary from 08/20 for further details. Hospitalizations were complicated by newly diagnosed severe oropharyngeal dysphagia requiring strict n.p.o. status and PEG tube placement. Patient reportedly had some of his friends food at his skilled nurse facility on day of this admission leading to an aspiration event. Chest x-ray on admit with COPD changes but no acute findings. Repeat chest x-ray on hospital day 2 showed no change from previous. Patient afebrile, hemodynamically stable on admission but was requiring up to 15 L high flow nasal cannula on presentation to the ED, and then was intermittently on BiPAP in the ED after that point. ? Breathing comfortably with good oxygen saturations on 6 L nasal cannula at rest on 08/28. Continue treatment with IV Solu-Medrol 40 mg every 8 hours for aspiration pneumonitis and possible recurrent COPD exacerbation. Continue scheduled DuoNebs and home long-acting inhalers. Wean supplemental oxygen as able. No need for antibiotics at this time. Continue strict n.p.o. status with feeds via PEG tube. 2. Chronic anemia, recent upper GI bleed with acute blood loss anemia in setting of chronic anemia due to erosive esophagitis from esophageal candidiasis ? Hemoglobin 11.7 on admit, down trended to 9.5 on hospital day 2. Baseline hemoglobin after recent hospitalization appears to be around 9-11. No acute signs of bleeding. Continue to trend daily CBC. Continue home PPI twice daily. 3. Leukocytosis ? WBC count 19.8 on admit, worsened to 22.2 on hospital day 2. Suspect primarily due to steroids and acute stress from aspiration event. Notably patient's WBC count on discharge on 08/20 was 15. Continue to hold on antibiotics at this time. Trend daily CBC. 4. Chronic hyponatremia ? Sodium 129 on admit, up to 131 on hospital day 2. Baseline sodium ranges around 128-132. Stable. Monitor daily sodium level. 5. Severe protein calorie malnutrition, PEG tube status ? Nutrition following. Continue tube feeds via PEG tube as normal. 6. Debility ? PT/OT/case management following. Likely back to SNF on discharge once medically stable. Chronic medical conditions: ? Hypertension: Continue home Coreg. ? Insomnia: Continue home melatonin. ? History of alcohol abuse: Abstinent since recent discharge to SNF. ? History of tobacco use: Abstinent since recent discharge to SNF. Encouraged continued cessation. Nicotine replacement therapy available as needed. ? History of throat cancer DVT prophylaxis: SCDs CODE STATUS: DNR CCA, DNI Expect disposition: Back to SNF, TBD Total clinical time spent by myself addressing the patient's medical issues, reviewing all the data, and collaborating with patient's care team: 35 minutes. Charges/Coding Visit Charges Inpatient E&M: 39412 Subs Hosp L2
--- NOTE | 2023-08-29 13:00 | CASEMGMT ---
Social Work Patient admitted from [facility], the patient has been since August 21, 2023. This global technical writer approached by patient's friend and power of prosecuting attorney for healthcare Salinas Manuel Niño reports concerned about patient's adherence at the intermediate facility, specifically about food intake. Salinas also shares concerns about patient's home situation being dirty and cluttered, describing this is according situation. Salinas reports has been trying to take care of getting all the patient's bills paid and patient is reportedly angry with Salinas for doing this. Salinas reports has spoken to the intermediate facility, and questioned whether patient will be accepted back, which was told there should be no problem. With patient in room, introducing the self and social work role. Patient alert and oriented, and quite talkative during social work visit. Patient reports to be unhappy at [facility] and does not want to return to the intermediate facility. Patient reports he now has [employer] Medicare, and was told he is approved for nursing at home, a home health aide to assist with personal care/groceries/cooking/cleaning, and medical devices such as a wheelchair, walker, oxygen tank and a nebulizer. Discussed with patient as to who approved everything, and the patient reports the insurance. Educated patient between having the benefits available and having approval for said services. Explain challenges in securing home healthcare's that have adequate staffing, as well as educated to home health being limited and intermittent. Explored whether patient feels able to safely take care of peg tube and adhere to intake limitations. Patient adamant up desire to return home with all the services mentioned, though when this global technical writer questioned whether patient would be willing to go to to nursing facility to allow more time to set up necessary home services, the patient reported would not return to [facility]. Updated multimedia services manager Hannah about conversation with patient. Secure email sent to preserve department email group inquiring whether could verify patient's insurance. Plan: will need to determine whether patient still has [facility] or truly has switch to [employer] and then will be able to determine what care options are in network with patient's insurance. [facility] facility level of care, which will likely be the safer option, versus home with home care services. If return home anticipate me need in Adult Protective Services referral. Social work will continue to follow and assist. -MICHAEL Mendez, SPLITTER MACHINE *This note was generated with [employer] software. It may contain incorrect words, spelling, and punctuation that were not noted in review of the chart prior to signing*
[2023-08-29] MEDS: Metoclopramide 10 MG Tablet GT ×2 (13:38→21:40)
[2023-08-29] MEDS: 0.9% Saline Lock 10 ML Syringe IV ×2 (13:38→22:12)
[2023-08-29] MEDS: MELATONIN 10 MG TABLET 5 MG GT (21:40)
[2023-08-30] VITALS (11 sets, daily range): BP systolic 128–146; BP diastolic 84–107; PULSE 75–92; RESP 16–20; TEMP 36.6–37.2; O2SAT 90–96; BMI 17.2
[2023-08-30] MEDS: Metoclopramide 10 MG Tablet GT ×3 (05:02→20:55)
[2023-08-30] MEDS: guaiFENesin 10 ML UDC (200MG/10ML) GT (05:02)
[2023-08-30] MEDS: Jevity 1.5. 1,000 ML Bottle 240 ML GT ×6 (05:05→20:55)
[2023-08-30] MEDS: Ipratropium/Albuterol Sulfate 3 ML AMPUL.NEB INHALATION ×4 (06:53→19:45)
[2023-08-30 08:46] LABS: Hematocrit 29.2 % (40-54); Hemoglobin 9.8 g/dL (13.0-16.5); Mean Corp Hgb Conc 33.6 g/dL (32-36); Mean Corpuscular Hgb 33.6 pg (27.0-32.0); Mean Platelet Vol. 9.6 fl (6.2-12.0); Platelet Count 391 K/mm3 (150-450); RBC Distribution Width CV 16.2 % (11.6-14.6); RBC Distribution Width SD 59.7 fl (35.1-43.9); Red Blood Count 2.92 M/mm3 (4.6-6.2); White Blood Count 18.4 K/mm3 (4.4-11.0)
[2023-08-30 08:59] LABS: Anion Gap 4 (5-15); BUN 23 mg/dL (7-18); Calcium,Total 9.1 mg/dL (8.5-10.1); Chloride 96 mmol/L (98-107); Creatinine, Serum 0.68 mg/dL (0.70-1.30); EST Glomerular Filtration Rate 125 mL/min (>60); Est Glom Filt Rate - Afr Amer 151 mL/min (>60); Estimated Creatinine Clearance 79.04 ml/min; Glucose 202 mg/dL (74-106); Potassium 4.2 mmol/L (3.5-5.1); Sodium Level 131 mmol/L (136-145)
[2023-08-30] MEDS: Carvedilol 6.25 MG Tablet GT ×2 (09:01→17:12)
[2023-08-30] MEDS: Multivitamins,Ther W-Minerals Tablet 1 TABLET GT (09:01)
[2023-08-30] MEDS: Lansoprazole 15 MG Capsule.DR 30 MG GT ×2 (09:02→20:54)
[2023-08-30] MEDS: Magnesium Chloride 64 MG Delay Rel.Tablet 128 MG PO (09:02)
[2023-08-30] MEDS: Fluconazole Suspension 40 MG/ML 35 ML Bottle 200 MG GT (09:02)
[2023-08-30 09:45] LABS: Pathologist Review Reviewed
--- NOTE | 2023-08-30 11:06 | CASEMGMT ---
Social Work SW met w/pt in room in regard to discharge plan. Pt initially states he wants to go home, states he was approved by his new insurance [employer](this is now in [employer]) for a home nurse, someone to help him cook and clean, and DME. SW explained to pt that it may be difficult to get everything he needs set up if pt were to go home from here. After some discussion, pt agreeable to go to a SNF again short term, as long as the facility will help pt get everything set up for homegoing. SW explained will give this information to the intermediate when the referral is made. SW gave pt a list of nursing home facilities via [employer] of facilities in network w/pt's insurance, in pt's preferred geographic area, and complete w/quality and resource use data. Pt is agreeable to a referral to [facility]. SW explained will make the referral. Pt also spoke w/pt about his bills. He states Salinas Christiansen helps pay his bills but won't bring pt his mail. He states Salinas has been paying bills that are in his mother's name, and she . He states frustration w/Salinas in how he is paying pt's bills. Pt agreeable to SW calling Salinas Christiansen to let him know pt agreed to go to [facility] short term, and ask him to bring pt his mail. SW called Salinas Wilson. SW explained to Salinas that pt is agreeable to go to [facility] short term as it would be difficult to get pt everything he would need for home. Salinas states concern about pt going home. He states pt lives in a trailer and has not cleaned it out since his mother 5 years ago. He states that pt wants to buy a new truck and he does not think pt should drive. SW also let him know pt's frustration with the bill paying. Salinas states he paid bills pt was okay w/him paying. SKYLAR Yeager made referral to [facility] and asked them to start precert. LONI will continue to follow. MICHAEL Kunz
--- NOTE | 2023-08-30 16:00 | PN.HOSP_ITS ---
Reason for Visit Reason for Visit: Diagnoses Chronic obstructive pulmonary disease with (acute) exacerbation (08/28/23) Pneumonitis due to inhalation of food and vomit (08/28/23) Acute and chronic respiratory failure with hypoxia (08/28/23) Subjective Subjective No acute events overnight. Patient seen at bedside this morning. Sitting up fairly comfortably in bed, in no acute distress. Breathing comfortably on 6 L nasal cannula at rest. Had 10-minute discussion with patient today regarding his goals of care. Patient was frustrated by his strict n.p.o. status. He notably was taking small sips of water and eating ice chips during conversation. He noted that he had some degree of dysphagia dating back to 2012 when he had his throat cancer and treatment for that, and he was able to manage until this past April without issue. He attributes his current dysphagia and other medical issues now to having pneumonia in April. He is not happy about the prospect of going back to a skilled nurse facility on discharge and would rather try to get everything set up at home so he can go home with home health care on discharge. States that he was able to manage his own tube feeds for about a year back in [id number] and with having a PEG tube again, he thinks he would do fine. He denies having any shortness of breath at rest but has not been out of bed much since admission. I noted that it was important that patient maintain strict n.p.o. status for now given his severe dysphagia and recent aspiration that led to this admission. Noted that I would discuss further with social work about his options on discharge. Patient had no other acute concerns at this time. Objective Data Objective Data Vital Signs: Vital Signs Temp Pulse Resp BP Pulse Ox O2 Del Method O2 Flow Rate 98.9 F 85 20 H 146/101 H 94 Nasal Cannula 6 08/30/23 14:34 08/30/23 14:57 08/30/23 14:57 08/30/23 14:34 08/30/23 14:34 08/30/23 14:39 08/30/23 14:39 FiO2 50 08/29/23 23:33 Oxygen Flow Rate (L/min) 6 Oxygen Delivery Method Nasal Cannula Weight: 60.7 kg Body Mass Index (BMI) 17.2 Intake & Output: Intake and Output for Last 24 Hours 08/28/23 08/29/23 08/30/23 23:59 23:59 23:59 Intake Total 112 / 112 2440 / 2440 50 / 50 Output Total 450 / 450 650 / 650 Balance 112 / 112 1989 -600 / -600 Medical Nutrition Assessment Dietitian: Malnutrition Criteria Met Start: 08/30/23 12:47 Freq: Status: Active Protocol: Document 08/30/23 12:48 ASHANTI (Rec: 08/30/23 12:49 ASHANTI [id number]) Nutrition Malnutrition Evidence of Malnutrition Exists Yes Malnutrition (severe): Chronic Evidenced By Weight Loss (Severe),Physical Changes (Moderate) Intake Problem Increased Nutrient Needs (specify) Etiology (protein) related to wound healing Signs/Symptoms as evidenced by pressure injury on the coccyx. Status Active Problem Clinical Problem Chronic Disease or Condition Related Malnutrition Etiology related to physiological changes limiting oral intakes Signs/Symptoms as evidenced by dysphagia with NPO requirement needing enteral nutrition provision as well as significant weight loss of 8.6% noted since (~1 week) weight of 140lb as well as moderate muscle and fat wasting per NFPA (bahai, clavicle, buccal). Status Active Problem Recommendation Dietitian Recommendations/Changes Recommend continuing enteral provision of Jevity 1.5 with 240mL boluses 6x daily with 80ml feeding tube flush before and after each bolus. Recommend that the pt remains NPO 2/2 dysphagia, per CLASSROOM INSTRUCTOR recommendation as well. Will modify enteral provision as needed upon follow-up. Lab / Micro Data 08/30/23 08:20 08/30/23 08:20 Labs: Laboratory Results - last 24 hr 08/28/23 22:08: Diff Path Review Reviewed 08/30/23 08:20: WBC 18.4 H, RBC 2.92 L, Hgb 9.8 L, Hct 29.2 L, MCV 100.0 H, MCH 33.6 H, MCHC 33.6, RDW Std Deviation 59.7 H, RDW Coeff of Tony 16.2 H, Plt Count 391, MPV 9.6, Sodium 131 L, Potassium 4.2, Chloride 96 L, Carbon Dioxide 31.0, Anion Gap 4 L, BUN 23 H, Creatinine 0.68 L, Estim Creat Clear Calc 79.04, Est GFR (MDRD) Af Amer 151, Est GFR (MDRD) Non-Af 125, BUN/Creatinine Ratio 34.0 H, Glucose 202 H, Calcium 9.1 Physical Exam Const alert, oriented x3 and no apparent distress Constitutional Narrative: Pleasant elderly male, thin and cachectic appearing, sitting up comfortably bed, breathing comfortably on 6 L nasal cannula at rest, conversing normally, in no acute distress. General Appearance: cooperative and comfortable HEENT normocephalic, head/scalp atraumatic, hearing grossly normal bilaterally and nasal mucous membranes and turbinates normal Mouth: dry mucous membranes Eyes PERRL, EOMs intact bilaterally and conjunctivae normal Neck full ROM Chest inspection of chest normal Resp normal respiratory effort, normal air movement, no use of accessory muscles and clear to auscultation bilaterally Resp Narrative: Breathing comfortably on 6 L nasal cannula. Mildly decreased breath sounds bilaterally, worse at lung bases, no wheezing or crackles noted. Cardio regular rate, regular rhythm, no murmurs and peripheral pulses 2+ throughout GI normal to inspection, nondistended, normoactive bowel sounds, soft to palpation, non-tender and non-distended GI Narrative: PEG tube noted. Back/Spine normal ROM Extremity normal to inspection, full ROM and no pedal edema Skin no rashes or lesions noted Neuro moves all extremities and no focal motor deficits Speech: speech normal Psych mental status grossly normal Assessment & Plan Assessment/Plan (1) Aspiration pneumonitis: (2) Acute and chronic respiratory failure with hypoxia: PLAN: Plan Patient is a 63-year-old male who presented [facility] ED on 08/28/2023 from SNF with acute shortness of breath after an episode of aspiration on food at his facility. 1. Acute on chronic hypoxic respiratory failure secondary to acute aspiration event with suspected aspiration pneumonitis, improving; history of chronic severe dysphagia with strict n.p.o. status Recent hospitalizations from 08/06-08/11 and 08/12-08/20, see discharge summary from 08/20 for further details. Hospitalizations were complicated by newly diagnosed severe oropharyngeal dysphagia requiring strict n.p.o. status and PEG tube placement. Patient reportedly had some of his friends food at his skilled nurse facility on day of this admission leading to an aspiration event. Chest x-ray on admit with COPD changes but no acute findings. Repeat chest x-ray on hospital day 2 showed no change from previous. Patient afebrile, hemodynami shaniqua stable on admission but was requiring up to 15 L high flow nasal cannula on presentation to the ED, and then was intermittently on BiPAP in the ED after that point. ? Breathing comfortably with good oxygen saturations on 6 L nasal cannula at rest on 08/29. Continue treatment with IV Solu-Medrol 40 mg every 8 hours for aspiration pneumonitis and possible recurrent COPD exacerbation. Continue scheduled DuoNebs and home long-acting inhalers. Wean supplemental oxygen as able. No need for antibiotics at this time. Continue strict n.p.o. status with feeds via PEG tube. 2. Chronic anemia, recent upper GI bleed with acute blood loss anemia in setting of chronic anemia due to erosive esophagitis from esophageal candidiasis ? Hemoglobin 11.7 on admit, baseline hemoglobin after recent hospitalization appears to be around 9-11. Remaining stable at baseline. No acute signs of bleeding. Continue to trend daily CBC. Continue home PPI twice daily. 3. Leukocytosis ? WBC count 19.8 on admit, remaining stable around 18-22. Suspect primarily due to steroids and acute stress from aspiration event. Notably patient's WBC count on discharge on 08/20 was 15. Continue to hold on antibiotics at this time. Trend daily CBC. 4. Chronic hyponatremia ? Sodium 129 on admit, baseline sodium ranges around 128-132. Remaining stable at baseline. Monitor daily sodium level. 5. Severe protein calorie malnutrition, PEG tube status ? Nutrition following. Continue tube feeds via PEG tube with strict n.p.o. status. 6. Debility ? PT/OT/case management following. Likely back to SNF on discharge once medically stable. Chronic medical conditions: ? Hypertension: Continue home Coreg. ? Insomnia: Continue home melatonin. ? History of alcohol abuse: Abstinent since recent discharge to SNF. ? History of tobacco use: Abstinent since recent discharge to SNF. Encouraged continued cessation. Nicotine replacement therapy available as needed. ? History of throat cancer DVT prophylaxis: SCDs CODE STATUS: DNR CCA, DNI Expect disposition: Back to [facility] Total clinical time spent by myself addressing the patient's medical issues, reviewing all the data, and collaborating with patient's care team: 35 minutes. Charges/Coding Visit Charges Inpatient E&M: 68548 Subs Hosp L2
[2023-08-30] MEDS: MELATONIN 10 MG TABLET 5 MG GT (20:54)
[2023-08-30] MEDS: 0.9% Saline Lock 10 ML Syringe IV (21:05)
[2023-08-31] VITALS (12 sets, daily range): BP systolic 113–156; BP diastolic 72–101; PULSE 74–86; RESP 16–20; TEMP 36.3–36.9; O2SAT 84–100; BMI 17.6
[2023-08-31] MEDS: Jevity 1.5. 1,000 ML Bottle 240 ML GT ×6 (00:17→22:31)
--- NOTE | 2023-08-31 02:17 | CPS ---
Pt declined use of bipap tonight.
[2023-08-31] MEDS: 0.9% Saline Lock 10 ML Syringe IV (05:13)
[2023-08-31] MEDS: Metoclopramide 10 MG Tablet GT ×3 (05:16→22:21)
[2023-08-31] MEDS: Ipratropium/Albuterol Sulfate 3 ML AMPUL.NEB INHALATION ×2 (06:54→11:08)
--- NOTE | 2023-08-31 07:09 | RAD_ITS ---
EXAM: XR CHEST, 1 VIEW CLINICAL INDICATION: ongoing hypoxia TECHNIQUE: Frontal view of the chest. COMPARISON: 4 FINDINGS: LUNGS AND PLEURAL SPACES: Minimal peripheral infiltrates may suggest a pneumonia. Hyperexpanded lung tian. No pneumothorax. No effusion. HEART: Unremarkable. Cardiac silhouette not enlarged. MEDIASTINUM: Central airways and mediastinal contour are unremarkable. BONES/JOINTS: Unremarkable. No acute fracture. SOFT TISSUES: Unremarkable. RAD/Chest 1 View (Portable) IMPRESSION: Minimal peripheral infiltrates may suggest a pneumonia. Electronically Signed: Jad Albarado MD at 14:32 EDT ,
[2023-08-31 08:07] LABS: Hematocrit 29.5 % (40-54); Hemoglobin 9.8 g/dL (13.0-16.5); Mean Corp Hgb Conc 33.2 g/dL (32-36); Mean Corpuscular Hgb 33.2 pg (27.0-32.0); Mean Platelet Vol. 9.7 fl (6.2-12.0); Platelet Count 449 K/mm3 (150-450); RBC Distribution Width CV 16.1 % (11.6-14.6); RBC Distribution Width SD 59.2 fl (35.1-43.9); Red Blood Count 2.95 M/mm3 (4.6-6.2)
[2023-08-31 08:37] LABS: Anion Gap 6 (5-15); BUN 24 mg/dL (7-18); BUN/Creat Ratio 34.9 RATIO (10-20); Calcium,Total 8.9 mg/dL (8.5-10.1); Chloride 93 mmol/L (98-107); Creatinine, Serum 0.69 mg/dL (0.70-1.30); EST Glomerular Filtration Rate 123 mL/min (>60); Est Glom Filt Rate - Afr Amer 148 mL/min (>60); Estimated Creatinine Clearance 80.86 ml/min; Glucose 210 mg/dL (74-106); Potassium 4.3 mmol/L (3.5-5.1); Sodium Level 130 mmol/L (136-145)
--- NOTE | 2023-08-31 09:40 | NURSING ---
pt extremely agitated, c/o not being able to eat/drink, not being able to sleep, money his POA is spending at home. He wants to set up all I need so I can go home. This RN reviewed note by ORDNANCE TRUCK INSTALLATION MECHANIC from yesterday, reminding pt he agreed to ECF for 1 week to allow for setting up of DME for his home. Pt now states, I have changed by mind, the embarks on a littany of c/o re ECFs in general and what I have heard. After lengthy disc including, his diff swallowing, aspiration risk, TF schedule set up by pt himself, and his request for DNRCC-A, DNI not DNRCC; the following plan was reached w/ the assisstence of Dr. Chauhan and nutrition. TF schedule will be changed to accommodate pt's feelings of hunger during the day allowing him opportunity to have control of when he is fed. He will practice completing his own TF under the supervision of RN till RN feels he is competent to complete on his own. He agrees to not eat or drink, or harass staff about not eating/drinking. The hope is these changes will reduce his feelings of hunger during the day and allow opportunity for a better nights sleep.
[2023-08-31] MEDS: Multivitamins,Ther W-Minerals Tablet 1 TABLET GT (10:01)
[2023-08-31] MEDS: Carvedilol 6.25 MG Tablet GT ×2 (10:02→16:56)
[2023-08-31] MEDS: Fluconazole Suspension 40 MG/ML 35 ML Bottle 200 MG GT (10:03)
[2023-08-31] MEDS: Lansoprazole 15 MG Capsule.DR 30 MG GT ×2 (10:04→22:22)
[2023-08-31] MEDS: Magnesium Chloride 64 MG Delay Rel.Tablet 128 MG PO (10:04)
--- NOTE | 2023-08-31 11:31 | PN.HOSP_ITS ---
Reason for Visit Reason for Visit: Diagnoses Chronic obstructive pulmonary disease with (acute) exacerbation (08/28/23) Pneumonitis due to inhalation of food and vomit (08/28/23) Acute and chronic respiratory failure with hypoxia (08/28/23) Subjective Subjective No acute events overnight. Patient seen at bedside this morning, nurse also present. Patient was continuing to require 6 L nasal cannula at rest to maintain oxygen saturations in the mid to high 80s. He denies any shortness of breath at rest but had not gotten out of bed yet to walk around. He continued to have any concerns including how much tube feed he was receiving and how everything was going with regards to getting things set up for him at home on discharge. Nurse and I discussed his situation at length again with him. No other acute concerns at this time. Objective Data Objective Data Vital Signs: Vital Signs Temp Pulse Resp BP Pulse Ox O2 Del Method O2 Flow Rate 98.4 F 86 18 122/72 H 86 Nasal Cannula 6 08/31/23 07:20 08/31/23 07:20 08/31/23 07:20 08/31/23 07:20 08/31/23 07:20 08/31/23 07:20 08/31/23 07:20 FiO2 50 08/29/23 23:33 Oxygen Flow Rate (L/min) 6 Oxygen Delivery Method Nasal Cannula Weight: 62.1 kg Body Mass Index (BMI) 17.6 Intake & Output: Intake and Output for Last 24 Hours 08/29/23 08/30/23 08/31/23 23:59 23:59 23:59 Intake Total 2440 / 2440 100 / 540 1380 / 1380 Output Total 450 / 450 650 / 1150 1000 / 1000 Balance 1989 / 1989 -550 / -610 380 / 380 Medical Nutrition Assessment Dietitian: Malnutrition Criteria Met Start: 08/30/23 12:47 Freq: Status: Active Protocol: Document 08/30/23 12:48 ASHANTI (Rec: 08/30/23 12:49 ASHANTI [id number]) Nutrition Malnutrition Evidence of Malnutrition Exists Yes Malnutrition (severe): Chronic Evidenced By Weight Loss (Severe),Physical Changes (Moderate) Intake Problem Increased Nutrient Needs (specify) Etiology (protein) related to wound healing Signs/Symptoms as evidenced by pressure injury on the coccyx. Status Active Problem Clinical Problem Chronic Disease or Condition Related Malnutrition Etiology related to physiological changes limiting oral intakes Signs/Symptoms as evidenced by dysphagia with NPO requirement needing enteral nutrition provision as well as significant weight loss of 8.6% noted since (~1 week) weight of 140lb as well as moderate muscle and fat wasting per NFPA (scientologist, clavicle, buccal). Status Active Problem Recommendation Dietitian Recommendations/Changes Recommend continuing enteral provision of Jevity 1.5 with 240mL boluses 6x daily with 80ml feeding tube flush before and after each bolus. Recommend that the pt remains NPO 2/2 dysphagia, per BEAD FORMING MACHINE SET UP OPERATOR recommendation as well. Will modify enteral provision as needed upon follow-up. Lab / Micro Data 08/31/23 06:40 08/31/23 06:40 Labs: Laboratory Results - last 24 hr 08/31/23 06:40: WBC 21.0 H, RBC 2.95 L, Hgb 9.8 L, Hct 29.5 L, MCV 100.0 H, MCH 33.2 H, MCHC 33.2, RDW Std Deviation 59.2 H, RDW Coeff of Tony 16.1 H, Plt Count 449, MPV 9.7, Sodium 130 L, Potassium 4.3, Chloride 93 L, Carbon Dioxide 31.0, Anion Gap 6, BUN 24 H, Creatinine 0.69 L, Estim Creat Clear Calc 80.86, Est GFR (MDRD) Af Amer 148, Est GFR (MDRD) Non-Af 123, BUN/Creatinine Ratio 34.9 H, Glucose 210 H, Calcium 8.9 Micro: Microbiology 08/28/23 22:08 Blood Culture (Wb) - Anticubital Left Blood Culture - Pre liminary No growth in 48 hours. 08/28/23 22:27 Blood Culture (Wb) - Anticubital Right Blood Culture - Preliminary No growth in 48 hours. Physical Exam Const alert, oriented x3 and no apparent distress Constitutional Narrative: Pleasant elderly male, thin and cachectic appearing, sitting up comfortably bed, mild increased work of breathing noted on 6 L nasal cannula at rest, soft and fatigued voice noted, otherwise in no acute distress. General Appearance: cooperative and comfortable HEENT normocephalic, head/scalp atraumatic, hearing grossly normal bilaterally and nasal mucous membranes and turbinates normal Mouth: dry mucous membranes Eyes PERRL, EOMs intact bilaterally and conjunctivae normal Neck full ROM Chest inspection of chest normal Resp normal respiratory effort, normal air movement, no use of accessory muscles and clear to auscultation bilaterally Resp Narrative: Mild increased work of breathing noted on 6 L nasal cannula. Mild to moderately decreased breath sounds bilaterally, worse at lung bases, no wheezing or crackles noted. Cardio regular rate, regular rhythm, no murmurs and peripheral pulses 2+ throughout GI normal to inspection, nondistended, normoactive bowel sounds, soft to palpation, non-tender and non-distended GI Narrative: PEG tube noted. Back/Spine normal ROM Extremity normal to inspection, full ROM and no pedal edema Skin no rashes or lesions noted Neuro moves all extremities and no focal motor deficits Speech: speech normal Psych mental status grossly normal Assessment & Plan Assessment/Plan (1) Aspiration pneumonitis: (2) Acute and chronic respiratory failure with hypoxia: PLAN: Plan Patient is a 63-year-old male who presented [facility] ED on 08/28/2023 from SNF with acute shortness of breath after an episode of aspiration on food at his facility. 1. Acute on chronic hypoxic respiratory failure secondary to acute aspiration event with suspected aspiration pneumonitis, improving; history of chronic severe dysphagia with strict n.p.o. status Recent hospitalizations from 08/06-08/11 and 08/12-08/20, see discharge summary from 08/20 for further details. Hospitalizations were complicated by newly diagnosed severe oropharyngeal dysphagia requiring strict n.p.o. status and PEG tube placement. Patient reportedly had some of his friends food at his skilled nurse facility on day of this admission leading to an aspiration event. Chest x-ray on admit with COPD changes but no acute findings. Repeat chest x-ray on hospital day 2 showed no change from previous. Patient afebrile, hemodynam ically stable on admission but was requiring up to 15 L high flow nasal cannula on presentation to the ED, and then was intermittently on BiPAP in the ED after that point. ? Patient continues to require 6 L nasal cannula at rest on 08/30, does have mild increased work of breathing. Per nursing staff, patient tried to ambulate with therapy later on morning of 08/30 and had significant dyspnea with exertion. Repeat chest x-ray on 08/30 with read pending but appears fairly stable from previous. Will obtain CTA chest to rule out PE. Otherwise de-escalated from IV Solu-Medrol to prednisone 40 mg daily on 08/30. Continue home long-acting inhalers and DuoNebs as needed. Will hold on antibiotics for now but low threshold to initiate given his ongoing poor respiratory status. Continue strict n.p.o. status with feeds via PEG tube. 2. Chronic anemia, recent upper GI bleed with acute blood loss anemia in setting of chronic anemia due to erosive esophagitis from esophageal candidiasis ? Hemoglobin 11.7 on admit, baseline hemoglobin after recent hospitalization appears to be around 9-11. Remaining stable at baseline. No acute signs of bleeding. Continue to trend daily CBC. Continue home PPI twice daily. 3. Leukocytosis ? WBC count 19.8 on admit, remaining stable around 18-22. Suspect primarily due to steroids and acute stress from aspiration event. Notably patient's WBC count on discharge on 08/20 was 15. Continue to hold on antibiotics at this time. Trend daily CBC. 4. Chronic hyponatremia ? Sodium 129 on admit, baseline sodium ranges around 128-132. Remaining stable at baseline. Monitor daily sodium level. 5. Severe protein calorie malnutrition, PEG tube status ? Nutrition following. Continue tube feeds via PEG tube with strict n.p.o. status. 6. Debility ? PT/OT/case management following. Discussions with patient ongoing, current plan is for back to SNF on discharge but patient has persistently been requesting home with home health care if possible. Will continue to follow. Chronic medical conditions: ? Hypertension: Continue home Coreg. ? Insomnia: Continue home melatonin. ? History of alcohol abuse: Abstinent since recent discharge to SNF. ? History of tobacco use: Abstinent since recent discharge to SNF. Encouraged continued cessation. Nicotine replacement therapy available as needed. ? History of throat cancer DVT prophylaxis: SCDs CODE STATUS: DNR CCA, DNI Expect disposition: Likely back to SNF, TBD Total clinical time spent by myself addressing the patient's medical issues, reviewing all the data, and collaborating with patient's care team: 35 minutes. Charges/Coding Visit Charges Inpatient E&M: 05889 Subs Hosp L2
--- NOTE | 2023-08-31 12:01 | CT_ITS ---
STUDY: CT Chest W/ Contrast Injection 08/31/2023 2:13 PM REASON FOR EXAM: Male, 63 years old. worsening hypoxia, r/o PE Individualized dose optimization techniques were used for this CT. TECHNIQUE: Transaxial imaging was performed with 75cc of Isovue 370 contrast material. COMPARISON: 08.07.23 FINDINGS: There are degenerative changes of the shoulders. There is no pneumothorax. There is no demonstrated pleural abnormality. Pulmonary emphysema. There are bilateral tree in bud infiltrates in the periphery of the lung. This may suggest a pneumonia, pneumoconioses, or pneumonitis. There are calcifications of the coronary arteries. Normal mediastinum. Normal hilar regions. Normal pulmonary arteries. There is atherosclerotic calcification of the aortic arch with tortuosity and elongation of the aortic arch and descending thoracic aorta. There are multi-level degenerative changes of the thoracic spine. Hypodense lesion in the inferior left kidney. This can be evaluated initially with ultrasound. CT/CTA Chest W/WO Contrast IMPRESSION: No demonstrated pulmonary embolism or arterial dissection. There are bilateral tree in bud infiltrates in the periphery of the lung. This may suggest a pneumonia, pneumoconioses, or pneumonitis. Electronically Signed: Jad Albarado MD at 14:17 EDT ,
[2023-08-31] MEDS: LORazepam 2 MG/ML Syringe 0.5 MG IV (12:38)
[2023-08-31] MEDS: predniSONE 20 MG Tablet 40 MG GT (12:39)
--- NOTE | 2023-08-31 13:20 | NURSING ---
pt able to given own TF bolus w/much direction and instruction, some improvement over previous attempt.
--- NOTE | 2023-08-31 15:30 | NURSING ---
pt found by RESCUE WORKER sitting at the side of the bed attempting to instill TF and water to his PEG w/out oversight of any kind. Much disc re agreed plan for oversight till pt able to perform correctly, risk of over filling/N/V, time spent today with this RN working w/pt to have his goals met. TF removed from pt room.
[2023-08-31 15:35] LABS: Procalcitonin 0.04 ng/mL (0.00-0.09)
[2023-08-31] MEDS: Piperacil/Tazobactam 3.375 GM in 0.9% Normal Saline (50mL MB+) 50 ML IV ×2 (16:55→22:31)
[2023-08-31] MEDS: LORazepam 0.5 MG Tablet PO (19:48)
[2023-08-31] MEDS: MELATONIN 10 MG TABLET 5 MG GT (22:23)
[2023-09-01] VITALS (11 sets, daily range): BP systolic 117–157; BP diastolic 69–97; PULSE 65–92; RESP 17–18; TEMP 36.3–36.8; O2SAT 94–98; BMI 17.6
[2023-09-01] MEDS: LORazepam 0.5 MG Tablet PO ×3 (05:15→21:06)
[2023-09-01] MEDS: Metoclopramide 10 MG Tablet GT ×3 (05:15→21:06)
[2023-09-01] MEDS: Piperacil/Tazobactam 3.375 GM in 0.9% Normal Saline (50mL MB+) 50 ML IV ×3 (05:16→21:12)
[2023-09-01] MEDS: Jevity 1.5. 1,000 ML Bottle 240 ML GT ×6 (05:16→21:07)
[2023-09-01 07:02] LABS: Hemoglobin 9.7 g/dL (13.0-16.5); Mean Corp Hgb Conc 33.4 g/dL (32-36); Mean Corpuscular Hgb 33.2 pg (27.0-32.0); Mean Corpuscular Volume 99.3 fL (80-94); Mean Platelet Vol. 9.3 fl (6.2-12.0); Platelet Count 398 K/mm3 (150-450); RBC Distribution Width SD 58.4 fl (35.1-43.9); Red Blood Count 2.92 M/mm3 (4.6-6.2); White Blood Count 13.5 K/mm3 (4.4-11.0)
[2023-09-01 07:59] LABS: Anion Gap 6 (5-15); BUN 23 mg/dL (7-18); BUN/Creat Ratio 34.3 RATIO (10-20); Calcium,Total 8.8 mg/dL (8.5-10.1); Chloride 94 mmol/L (98-107); Creatinine, Serum 0.67 mg/dL (0.70-1.30); EST Glomerular Filtration Rate 126 mL/min (>60); Est Glom Filt Rate - Afr Amer 153 mL/min (>60); Estimated Creatinine Clearance 80.86 ml/min; Glucose 161 mg/dL (74-106); Potassium 4.3 mmol/L (3.5-5.1); Sodium Level 130 mmol/L (136-145)
[2023-09-01] MEDS: Lansoprazole 15 MG Capsule.DR 30 MG GT ×2 (09:20→21:06)
[2023-09-01] MEDS: Carvedilol 6.25 MG Tablet GT ×2 (09:20→18:24)
[2023-09-01] MEDS: Magnesium Chloride 64 MG Delay Rel.Tablet 128 MG PO (09:21)
[2023-09-01] MEDS: predniSONE 20 MG Tablet 40 MG GT (09:21)
[2023-09-01] MEDS: Multivitamin/Minerals/Iron (9 mg/15 ml) Liquid GT (09:22)
--- NOTE | 2023-09-01 10:59 | PCM.PN.HOSP ---
Reason for Visit Reason for Visit: Diagnoses Chronic obstructive pulmonary disease with (acute) exacerbation (08/28/23) Pneumonitis due to inhalation of food and vomit (08/28/23) Acute and chronic respiratory failure with hypoxia (08/28/23) Subjective Subjective No acute events overnight. Patient seen at bedside this morning. Sitting up comfortably in bedside chair near the window, appears more calm and comfortable today. He does have Airvo on at 30 L of O2 but is breathing comfortably. Patient states he slept well last night with the Ativan that was started yesterday, generally feels improved today. States he was able to walk around the room this morning without significant dyspnea on exertion. He denies any fevers or chills. Denies any significant cough or sputum production. No other acute concerns this point. Objective Data Objective Data Vital Signs: Vital Signs Temp Pulse Resp BP Pulse Ox O2 Del Method O2 Flow Rate 98 F 75 17 157/97 H 95 Airvo 30 09/01/23 10:00 09/01/23 10:00 09/01/23 10:00 09/01/23 10:00 09/01/23 10:00 09/01/23 10:00 09/01/23 09:54 FiO2 36 09/01/23 07:34 Oxygen Flow Rate (L/min) [At 6 REST with Oxygen] Oxygen Flow Rate (L/min) 30 Oxygen Delivery Method Airvo Weight: 62.1 kg Body Mass Index (BMI) 17.6 Intake & Output: Intake and Output for Last 24 Hours 08/30/23 08/31/23 09/01/23 23:59 23:59 23:59 Intake Total 100 / 540 2150 / 2150 460 / 460 Output Total 650 / 1150 1750 / 1750 500 / 500 Balance -550 / -610 400 / 400 -40 / -40 Medical Nutrition Assessment Dietitian: Malnutrition Criteria Met Start: 08/30/23 12:47 Freq: Status: Active Protocol: Document 08/30/23 12:48 ASHANTI (Rec: 08/30/23 12:49 ASHANTI [id number]) Nutrition Malnutrition Evidence of Malnutrition Exists Yes Malnutrition (severe): Chronic Evidenced By Weight Loss (Severe),Physical Changes (Moderate) Intake Problem Increased Nutrient Needs (specify) Etiology (protein) related to wound healing Signs/Symptoms as evidenced by pressure injury on the coccyx. Status Active Problem Clinical Problem Chronic Disease or Condition Related Malnutrition Etiology related to physiological changes limiting oral intakes Signs/Symptoms as evidenced by dysphagia with NPO requirement needing enteral nutrition provision as well as significant weight loss of 8.6% noted since (~1 week) weight of 140lb as well as moderate muscle and fat wasting per NFPA (sikhism, clavicle, buccal). Status Active Problem Recommendation Dietitian Recommendations/Changes Recommend continuing enteral provision of Jevity 1.5 with 240mL boluses 6x daily with 80ml feeding tube flush before and after each bolus. Recommend that the pt remains NPO 2/2 dysphagia, per CIRCUIT BOARD DRAFTER recommendation as well. Will modify enteral provision as needed upon follow-up. Lab / Micro Data 09/01/23 06:30 09/01/23 06:30 Labs: Laboratory Results - last 24 hr 08/31/23 14:55: Procalcitonin 0.04 09/01/23 06:30: WBC 13.5 H, RBC 2.92 L, Hgb 9.7 L, Hct 29.0 L, MCV 99.3 H, MCH 33.2 H, MCHC 33.4, RDW Std Deviation 58.4 H, RDW Coeff of Tony 16.0 H, Plt Count 398, MPV 9.3, Sodium 130 L, Potassium 4.3, Chloride 94 L, Carbon Dioxide 30.0, Anion Gap 6, BUN 23 H, Creatinine 0.67 L, Estim Creat Clear Calc 80.86, Est GFR (MDRD) Af Amer 153, Est GFR (MDRD) Non-Af 126, BUN/Creatinine Ratio 34.3 H, Glucose 161 H, Calcium 8.8 Micro: Microbiology 08/28/23 22:08 Blood Culture (Wb) - Anticubital Left Blood Culture - Preliminary No growth in 48 hours. 08/28/23 22:27 Blood Culture (Wb) - Anticubital Right Blood Culture - Preliminary No growth in 48 hours. Radiography Diagnostic Testing: Radiology Impression Chest X-Ray 08/31/23 07:09 IMPRESSION: Minimal peripheral infiltrates may suggest a pneumonia. Electronically Signed: Jad Albarado MD at 14:32 EDT , Chest CTA 08/31/23 12:01 IMPRESSION: No demonstrated pulmonary embolism or arterial dissection. There are bilateral tree in bud infiltrates in the periphery of the lung. This may suggest a pneumonia, pneumoconioses, or pneumonitis. Electronically Signed: Jad Albarado MD at 14:17 EDT Reading Location ID and State: [facility] / [place] , Service support , Physical Exam Const alert, oriented x3 and no apparent distress Constitutional Narrative: Pleasant elderly male, thin and cachectic appearing, sitting up comfortably bedside chair, on Airvo at 30 L O2 but no increased work of breathing noted at rest, soft and fatigued voice again noted similar to on admission, otherwise in no acute distress. General Appearance: cooperative and comfortable HEENT normocephalic, head/scalp atraumatic, hearing grossly normal bilaterally and nasal mucous membranes and turbinates normal Mouth: dry mucous membranes Eyes PERRL, EOMs intact bilaterally and conjunctivae normal Neck full ROM Chest inspection of chest normal Resp normal respiratory effort, normal air movement, no use of accessory muscles and clear to auscultation bilaterally Resp Narrative: Breathing comfortably on Airvo at 30 L O2. Continues to have moderately decreased breath sounds bilaterally, worse at lung bases, no wheezing or crackles noted. Cardio regular rate, regular rhythm, no murmurs and peripheral pulses 2+ throughout GI normal to inspection, nondistended, normoactive bowel sounds, soft to palpation, non-tender and non-distended GI Narrative: PEG tube noted. Back/Spine normal ROM Extremity normal to inspection, full ROM and no pedal edema Skin no rashes or lesions noted Neuro moves all extremities and no focal motor deficits Speech: speech normal Psych mental status grossly normal Assessment & Plan Assessment/Plan (1) Aspiration pneumonitis: (2) Acute and chronic respiratory failure with hypoxia: PLAN: Plan Patient is a 63-year-old male who presented [facility] ED on 08/28/2023 from SNF with acute shortness of breath after an episode of aspiration on food at his facility. 1. Acute on chronic hypoxic respiratory failure secondary to acute aspiration event with suspected aspiration pneumonitis with aspiration pneumonia; history of chronic severe dysphagia with strict n.p.o. status Recent hospitalizations from 08/06-08/11 and 08/12-08/20, see discharge summary from 08/20 for further details. Hospitalizations were complicated by newly diagnosed severe oropharyngeal dysphagia requiring strict n.p.o. status and PEG tube placement. Patient reportedly had some of his friends food at his skilled nurse facility on day of this admission leading to an aspiration event. Chest x-ray on admit with COPD changes but no acute findings. Repeat chest x-ray on hospital day 2 showed no change from previous. Patient afebrile, hemodynamically stable on admission but was requiring up to 15 L high flow nasal cannula on presentation to the ED, and then was intermittently on BiPAP in the ED after that point. Patient continued to have fairly high oxygen requirements on 08/30 with mild increased work of breathing. CTA chest on 08/30 showed no PE, did show bilateral tree-in-bud infiltrates in the periphery of the lung suggestive of pneumonia versus pneumonitis. ? Patient continues to have increased oxygen requirements, on Airvo 30L O2 on 08/31 with marginal saturations but does not have any increased work of breathing. Started on IV Zosyn for concern for aspiration ammonia on 08/30, will continue for now. Treated with IV Solu-Medrol 40 mg every 8 hours on admit, de-escalated to prednisone 40 mg daily on 08/30. Continue home long-acting inhalers and DuoNebs as needed. Continue strict n.p.o. status with feeds via PEG tube. Will consult pulmonology for further recommendations. 2. Chronic anemia, recent upper GI bleed with acute blood loss anemia in setting of chronic anemia due to erosive esophagitis from esophageal candidiasis ? Hemoglobin 11.7 on admit, baseline hemoglobin after recent hospitalization appears to be around 9-11. Remaining stable at baseline. No acute signs of bleeding. Continue to trend daily CBC. Continue home PPI twice daily. 3. Chronic hyponatremia ? Sodium 129 on admit, baseline sodium ranges around 128-132. Remaining stable at baseline. Monitor daily sodium level. 4. Severe protein calorie malnutrition, PEG tube status ? Nutrition following. Continue tube feeds via PEG tube with strict n.p.o. status. 5. Debility ? PT/OT/case management following. Discussions with patient ongoing, current plan is for back to SNF on discharge as there are still several things that patient would need to set up at his home prior to him being safe to go home with home health care. However, patient has been difficult and continues to request home with home health care on discharge if possible. Will continue to follow. Chronic medical conditions: ? Hypertension: Continue home Coreg. ? Insomnia: Continue home melatonin. ? History of alcohol abuse: Abstinent since recent discharge to SNF. ? History of tobacco use: Abstinent since recent discharge to SNF. Encouraged continued cessation. Nicotine replacement therapy available as needed. ? History of throat cancer DVT prophylaxis: Lovenox CODE STATUS: DNR CCA, DNI Expect disposition: Likely back to SNF, TBD Total clinical time spent by myself addressing the patient's medical issues, reviewing all the data, and collaborating with patient's care team: 35 minutes. Charges/Coding Visit Charges Inpatient E&M: 96161 Subs Hosp L2
[2023-09-01] MEDS: Fluconazole Suspension 40 MG/ML 35 ML Bottle 200 MG GT (12:42)
[2023-09-01] MEDS: MELATONIN 10 MG TABLET 5 MG GT (21:06)
[2023-09-02] VITALS (14 sets, daily range): BP systolic 125–151; BP diastolic 72–102; PULSE 70–83; RESP 16–24; TEMP 36.4–36.7; O2SAT 89–96; BMI 17.6
[2023-09-02] MEDS: Piperacil/Tazobactam 3.375 GM in 0.9% Normal Saline (50mL MB+) 50 ML IV ×2 (05:13→14:59)
[2023-09-02] MEDS: LORazepam 0.5 MG Tablet PO ×2 (05:13→14:59)
[2023-09-02] MEDS: Metoclopramide 10 MG Tablet GT ×2 (05:13→14:59)
[2023-09-02] MEDS: Jevity 1.5. 1,000 ML Bottle 240 ML GT ×6 (05:13→19:40)
[2023-09-02 07:07] LABS: Hematocrit 31.2 % (40-54); Hemoglobin 10.4 g/dL (13.0-16.5); Mean Corp Hgb Conc 33.3 g/dL (32-36); Mean Platelet Vol. 9.2 fl (6.2-12.0); Platelet Count 413 K/mm3 (150-450); RBC Distribution Width CV 15.9 % (11.6-14.6); RBC Distribution Width SD 57.9 fl (35.1-43.9); Red Blood Count 3.15 M/mm3 (4.6-6.2); White Blood Count 10.8 K/mm3 (4.4-11.0)
[2023-09-02 07:24] LABS: Anion Gap 4 (5-15); BUN 20 mg/dL (7-18); BUN/Creat Ratio 31.5 RATIO (10-20); Calcium,Total 8.8 mg/dL (8.5-10.1); Chloride 96 mmol/L (98-107); Creatinine, Serum 0.64 mg/dL (0.70-1.30); EST Glomerular Filtration Rate 135 mL/min (>60); Est Glom Filt Rate - Afr Amer 163 mL/min (>60); Estimated Creatinine Clearance 81.38 ml/min; Glucose 133 mg/dL (74-106); Sodium Level 132 mmol/L (136-145)
[2023-09-02] MEDS: Ipratropium/Albuterol Sulfate 3 ML AMPUL.NEB INHALATION ×4 (07:26→19:37)
[2023-09-02] MEDS: Lansoprazole 15 MG Capsule.DR 30 MG GT (08:57)
[2023-09-02] MEDS: Magnesium Chloride 64 MG Delay Rel.Tablet 128 MG PO (08:58)
[2023-09-02] MEDS: predniSONE 20 MG Tablet 40 MG GT ×2 (08:58)
[2023-09-02] MEDS: Carvedilol 6.25 MG Tablet GT ×2 (08:59→16:55)
[2023-09-02] MEDS: Fluconazole Suspension 40 MG/ML 35 ML Bottle 200 MG GT (08:59)
[2023-09-02] MEDS: Enoxaparin 40 MG/0.4 ML Syringe SC (09:03)
--- NOTE | 2023-09-02 09:54 | CASEMGMT ---
TORIN CHENG in to discuss needs at discharge with patient. Patient states that his goal is to go home. TORIN CHENG discussed needs at discharge including HHC, tube feeds, oxygen, and additional DME. TORIN CHENG updated patient that he has insurance approval to go to [facility] as discussed on Saturday. TORIN CHENG discussed therapy and oxygen demands currently and that [facility] could continue to monitor him while they work on discharge needs. Patient is agreeable to discharge to [facility] while discharge needs are arranged for patient to go home. Patient wants to inquire how long it will take [facility] to make arrangements at home, SW updated. Patient had no further questions or concerns. Patient is currently still on Airvo, TORIN CHENG updated charge nurse who will notify respiratory to work on weaning down oxygen.
--- NOTE | 2023-09-02 11:03 | TREXTCAR_ITS ---
Diet Diet Order/Speech Therapy: 08/29/23 01:53 Diet: Nothing Per Oral Diet Comments: ok for supervised sips and chips following oral care. Routine Orders/Code Status O2 Liters per Minute: 6 O2 Frequency: Continuous Keep PO Greater than or Equal to (%): 90 Code Status: DNRCC-A (Without intubation) Wound(s) coccyx: Wound Type: Pressure Injury Therapies Weight Bearing: Full weight bearing Physical Therapy: Eval and Treat Occupational Therapy: Eval and Treat Speech Therapy: Eval and Treat Problem/Diagnosis (1) Aspiration pneumonitis: Status: Acute Code(s): J69.0 - Pneumonitis due to inhalation of food and vomit (2) Acute and chronic respiratory failure with hypoxia: Status: Chronic Code(s): J96.21 - Acute and chronic respiratory failure with hypoxia Plan 1. Acute on chronic hypoxic respiratory failure secondary to acute aspiration with suspected aspiration pneumonia #2 aspiration pneumonia #3 oropharyngeal dysphagia secondary to previous history of radiation therapy for head and neck cancer #4 severe protein and caloric malnutrition as evidenced by dysphagia with n.p.o. requirement needing enteral nutrition provision as well as significant weight loss of 8.6% noted since 08/20/2023 as well as moderate muscle and fat wasting in the temporal, clavicular area, and the buccal area Allergies/Procedures Done in Hospital Allergies No Known Allergies Allergy (Verified 08/13/23 21:05) Procedures: None Type of Care/Length of Stay Estimated LOS: Convalescent Care Less Than 30 days Type of Care Needed: Skilled Rehab Potential: Good Prognosis: Good Additional Orders/Day of Discharge H&P will serve as current which was dated: 08/28/23 Day of Discharge: 09/02/23 Dietary and Speech Recommendations Dietitian Recommendations/Changes: Recommend continuing enteral provision of Jevity 1.5 with 240mL boluses 6x daily with 80ml feeding tube flush before and after each bolus. Recommend that the pt remains NPO 2/2 dysphagia, per CIVIL ENGINEERING PROFESSOR recommendation as well. Will modify enteral provision as needed upon follow-up. Discharge Plan Admission Admit Date/Time: 08/28/23 23:52 Primary Reason for Your Visit: Aspiration, aspiration pneumonia, acute on chronic hypoxic respiratory fail Attending Provider: Arnav Billings Primary Care Provider: Cha Powell Consulting Providers: Loren Marte; Papito Chauhan Discharge Orders/Prescriptions Prescriptions: New prednisone 20 mg Tablet 40 mg G-tube BREAKFAST Qty: 0 0RF Rx Instructions: 40 mg through G-tube for 3 days starting 09/02/2023, then 20 mg daily through G-tube x 5 days thereafter and then stop lansoprazole 15 mg Capsule,Delayed Release(Dr/Ec) 30 mg G-tube BID Qty: 0 0RF amoxicillin-pot clavulanate 400-57 mg/5 mL suspension for reconstitution 10 ml feeding tube BID Qty: 100 0RF Rx Instructions: Administer for 5 days starting 08/27/2023 then discontinue Continued ipratropium-albuterol 0.5 mg-3 mg(2.5 mg base)/3 mL Solution For Nebulization 3 ml inhalation Q4HWA.RT Qty: 0 0RF albuterol sulfate 2.5 mg /3 mL (0.083 %) Solution For Nebulization 2.5 mg inhalation Q2H PRN PRN (Reason: Dyspnea, wheezing) Qty: 0 0RF Therapeutic-M 9 mg iron-400 mcg Tablet 1 tab feeding tube BREAKFAST Qty: 0 0RF Jevity 1.5 Jason 0.06 gram-1.5 kcal/mL Liquid 240 ml G-tube 6X/DAY Qty: 0 0RF metoclopramide HCl [Reglan] 10 mg tablet 10 mg feeding tube Q8 Qty: 1 0RF guaifenesin [Expectorant] 200 mg tablet 600 mg PO BID Rx Instructions: stop day 09/03/23 magnesium oxide 400 mg magnesium capsule 400 mg feeding tube DAILY melatonin 5 mg capsule 5 mg feeding tube DAILY acetaminophen 325 mg Tablet 650 mg feeding tube Q4H PRN PRN (Reason: Fever, pain -03/05) carvedilol 6.25 mg Tablet 6.25 mg feeding tube BIDCM fluconazole 40 mg/mL Suspension For Reconstitution 200 mg G-tube DAILY Qty: 0 0RF Rx Instructions: Administer for 7 days starting 09/02/2023 then discontinue Discontinued lansoprazole 15 mg Capsule,Delayed Release(Dr/Ec) 30 mg G-tube BID Qty: 0 0RF sennosides-docusate sodium [Stool Softener-Stimulant Laxat] 8.6-50 mg Tablet 2 tab PO BID PRN PRN (Reason: Constipation) Qty: 1 0RF prednisone 10 mg tablet 10 mg feeding tube DAILY Qty: 30 0RF Rx Instructions: 4 tablets x 3 days, 3 tablets x 3 days, 2 tablets x 3 days, 1 tablet x 3 days Referrals / Follow Up: Cha Powell PA [Primary Care Provider] - Disposition Disposition (needs filled in before D/C Order can be placed): [facility]
--- NOTE | 2023-09-02 11:18 | DS.PCM_ITS ---
Providers Date of Admission: 08/28/23 Date of Discharge: 09/02/23 Primary Care Physician: SILVIO Mejias Reason For Visit: ACUTE RESP FAILURE, ACUTE ASPIRATION, COPD EXAC Diagnosis Discharge Diagnosis (1) Aspiration pneumonitis: Status: Acute Code(s): J69.0 - Pneumonitis due to inhalation of food and vomit (2) Acute and chronic respiratory failure with hypoxia: Status: Chronic Code(s): J96.21 - Acute and chronic respiratory failure with hypoxia Plan 1. Acute on chronic hypoxic respiratory failure secondary to acute aspiration with suspected aspiration pneumonia #2 aspiration pneumonia #3 oropharyngeal dysphagia secondary to previous history of radiation therapy for head and neck cancer #4 severe protein and caloric malnutrition as evidenced by dysphagia with n.p.o. requirement needing enteral nutrition provision as well as significant weight loss of 8.6% noted since 08/20/2023 as well as moderate muscle and fat wasting in the temporal, clavicular area, and the buccal area Medications at Discharge Home Medications albuterol sulfate 2.5 mg/3 mL (0.083 %) solution for nebulization 2.5 mg (3 mL) inhalation Q2H PRN PRN Dyspnea, wheezing #0 mL 08/21/23 ipratropium 0.5 mg-albuterol 3 mg (2.5 mg base)/3 mL nebulization soln 3 ml inha lation Q4HWA.RT #0 mL 08/21/23 lactose-reduced food with fiber 0.06 gram-1.5 kcal/mL oral liquid (Jevity 1.5 Jason) 240 ml G-tube 6X/DAY #0 mL 08/21/23 metoclopramide HCl 10 mg tablet (Reglan) 10 mg feeding tube Q8 #1 TAB 08/21/23 multivitamin-iron 9 mg-folic acid 400 mcg-calcium and minerals tablet (Therapeutic-M) 1 tab feeding tube BREAKFAST #0 tabs 08/21/23 acetaminophen 325 mg tablet 650 mg feeding tube Q4H PRN PRN Fever, pain 1-03/0508/28/23 carvedilol 6.25 mg tablet 6.25 mg feeding tube BIDCM 08/28/23 guaifenesin 200 mg tablet (Expectorant) 600 mg PO BID 08/28/23 magnesium oxide 400 mg feeding tube DAILY 08/28/23 melatonin 5 mg capsule 5 mg feeding tube DAILY 08/28/23 amoxicillin 400 mg-potassium clavulanate 57 mg/5 mL oral suspension 10 ml feeding tube BID #100 mL 09/02/23 fluconazole 40 mg/mL oral suspension 200 mg (5 mL) G-tube DAILY #0 mL 09/02/23 lansoprazole 15 mg capsule,delayed release 30 mg (2 x 15 mg) G-tube BID #0 caps 09/02/23 prednisone 20 mg tablet 40 mg (2 x 20 mg) G-tube BREAKFAST #0 tabs 09/02/23 Hospital Course Operations None Procedures None Summary of Care Provided Minutes Spent on Discharge: 33 Hospital Course: This 63-year-old white male was seen in the emergency room at [facility] after being transported in from a local extended care facility at which she was receiving skilled services after hospitalization here at [facility]. He was transported due to an episode of aspiration that the patient experienced after eating some candy in the skilled nursing, patient was supposed to be n.p.o. and has a PEG tube due to oropharyngeal dysphagia. Patient was complaining of difficulty breathing and at the skilled nursing his pulse ox dropped and he was brought to the emergency room for evaluation here. Lab obtained in emergency room revealed elevated white blood cell count at 19.8, hemoglobin was 11.7, chemistry profile was remarkable for sodium of 129, there were no acute findings on the patient's chest x-ray and there was evidence of COPD changes noted. Patient was admitted to PCU for aspiration pneumonitis and acute on chronic hypoxic respiratory failure. He was given IV antibiotics and aerosol treatments, pulse ox was monitored and the patient's oxygen requirement lessened during his hospitalization. Patient was seen by nutritional services and PT and OT. Patient agreed to placement in a [facility] facility at the time of discharge from the hospital but did not want to return to [facility]. On 09/02/2023, patient was seen and examined: On examination he appeared older than his stated age, he was in no distress. Vital signs as documented. Skin warm and dry and without overt rashes. Neck without JVD, neck was supple, trachea midline, thyroid was normal. Lungs clear bilaterally, normal air movement was noted. Heart exam notable for regular rhythm, normal sounds and absence of murmurs, rubs or gallops. Abdomen unremarkable and without evidence of organomegaly, masses, or abdominal aortic enlargement. PEG tube was in place. Bowel sounds are present, abdomen is not distended. Extremities nonedematous, no cyanosis was noted, no clubbing was noted. Neuro: Cranial nerves II through XII are grossly intact, no focal motor deficits were noted, sensation to light touch and pinprick intact, motor exam 5/5 throughout. Psych: Patient is alert and oriented x3, he does not appear anxious or depressed, he does not appear agitated. Patient was discharged to skilled care facility on 09/02/2023 in stable condition Medical Records Data Medical Nutrition Assessment Dietitian: Malnutrition Criteria Met Start: 08/30/23 12:47 Freq: Status: Active Protocol: Document 08/30/23 12:48 RITIKA (Rec: 08/30/23 12:49 [facility] [id number]) Nutrition Malnutrition Evidence of Malnutrition Exists Yes Malnutrition (severe): Chronic Evidenced By Weight Loss (Severe),Physical Changes (Moderate) Intake Problem Increased Nutrient Needs (specify) Etiology (protein) related to wound healing Signs/Symptoms as evidenced by pressure injury on the coccyx. Status Active Problem Clinical Problem Chronic Disease or Condition Related Malnutrition Etiology related to physiological changes limiting oral intakes Signs/Symptoms as evidenced by dysphagia with NPO requirement needing enteral nutrition provision as well as significant weight loss of 8.6% noted since (~1 week) weight of 140lb as well as moderate muscle and fat wasting per NFPA (taoism, clavicle, buccal). Status Active Problem Recommendation Dietitian Recommendations/Changes Recommend continuing enteral provision of Jevity 1.5 with 240mL boluses 6x daily with 80ml feeding tube flush before and after each bolus. Recommend that the pt remains NPO 2/2 dysphagia, per RIM FIRE PRIMING OPERATOR recommendation as well. Will modify enteral provision as needed upon follow-up. Weight / BMI Weight Weight: 62.5 kg Body Mass Index (BMI) 17.6 ABG / Lab / Microbiology Data 09/02/23 06:35 09/02/23 06:35 Laboratory: Laboratory Results - last 24 hr 09/02/23 06:35: WBC 10.8, RBC 3.15 L, Hgb 10.4 L, Hct 31.2 L, MCV 99.0 H, MCH 33.0 H, MCHC 33.3, RDW Std Deviation 57.9 H, RDW Coeff of Tony 15.9 H, Plt Count 413, MPV 9.2, Sodium 132 L, Potassium 4.0, Chloride 96 L, Carbon Dioxide 32.0, Anion Gap 4 L, BUN 20 H, Creatinine 0.64 L, Estim Creat Clear Calc 81.38, Est GFR (MDRD) Af Amer 163, Est GFR (MDRD) Non-Af 135, BUN/Creatinine Ratio 31.5 H, Glucose 133 H, Calcium 8.8 Microbiology: Microbiology 08/28/23 22:08 Blood Culture (Wb) - Anticubital Left Blood Culture - Preliminary No growth in 48 hours. 08/28/23 22:27 Blood Culture (Wb) - Anticubital Right Blood Culture - Preliminary No growth in 48 hours. Meaningful Use Info Meaningful Use Diagnoses (Choose all that apply): None applicable Discharge Plan Admission Admit Date/Time: 08/28/23 23:52 Primary Reason for Your Visit: Aspiration, aspiration pneumonia, acute on chronic hypoxic respiratory fail Attending Provider: Arnav Billings Primary Care Provider: Cha Powell Consulting Providers: Loren Marte; Papito Chauhan Discharge Orders/Prescriptions Prescriptions: New prednisone 20 mg Tablet 40 mg G-tube BREAKFAST Qty: 0 0RF Rx Instructions: 40 mg through G-tube for 3 days starting 09/02/2023, then 20 mg daily through G-tube x 5 days thereafter and then stop lansoprazole 15 mg Capsule,Delayed Release(Dr/Ec) 30 mg G-tube BID Qty: 0 0RF amoxicillin-pot clavulanate 400-57 mg/5 mL suspension for reconstitution 10 ml feeding tube BID Qty: 100 0RF Rx Instructions: Administer for 5 days starting 08/27/2023 then discontinue Continued ipratropium-albuterol 0.5 mg-3 mg(2.5 mg base)/3 mL Solution For Nebulization 3 ml inhalation Q4HWA.RT Qty: 0 0RF albuterol sulfate 2.5 mg /3 mL (0.083 %) Solution For Nebulization 2.5 mg inhalation Q2H PRN PRN (Reason: Dyspnea, wheezing) Qty: 0 0RF Therapeutic-M 9 mg iron-400 mcg Tablet 1 tab feeding tube BREAKFAST Qty: 0 0RF Jevity 1.5 Jason 0.06 gram-1.5 kcal/mL Liquid 240 ml G-tube 6X/DAY Qty: 0 0RF metoclopramide HCl [Reglan] 10 mg tablet 10 mg feeding tube Q8 Qty: 1 0RF guaifenesin [Expectorant] 200 mg tablet 600 mg PO BID Rx Instructions: stop day 09/03/23 magnesium oxide 400 mg magnesium capsule 400 mg feeding tube DAILY melatonin 5 mg capsule 5 mg feeding tube DAILY acetaminophen 325 mg Tablet 650 mg feeding tube Q4H PRN PRN (Reason: Fever, pain -03/05) carvedilol 6.25 mg Tablet 6.25 mg feeding tube BIDCM fluconazole 40 mg/mL Suspension For Reconstitution 200 mg G-tube DAILY Qty: 0 0RF Rx Instructions: Administer for 7 days starting 09/02/2023 then discontinue Discontinued lansoprazole 15 mg Capsule,Delayed Release(Dr/Ec) 30 mg G-tube BID Qty: 0 0RF sennosides-docusate sodium [Stool Softener-Stimulant Laxat] 8.6-50 mg Tablet 2 tab PO BID PRN PRN (Reason: Constipation) Qty: 1 0RF prednisone 10 mg tablet 10 mg feeding tube DAILY Qty: 30 0RF Rx Instructions: 4 tablets x 3 days, 3 tablets x 3 days, 2 tablets x 3 days, 1 tablet x 3 days Referrals / Follow Up: Cha Powell PA [Primary Care Provider] - Disposition Disposition (needs filled in before D/C Order can be placed): [facility] Charges/Coding Visit Charges Inpatient E&M: 66777 Disch Hosp >30min
[2023-09-02] MEDS: Multivitamin/Minerals/Iron (9 mg/15 ml) Liquid GT (11:20)
--- NOTE | 2023-09-02 13:35 | PHA.DC.MR.R ---
Pharmacy [place] Med Reconciliation Pharmacy Service has performed discharge medication reconciliation for this patient. The patient's discharge medication list was reviewed for discrepancies and discrepancies were resolved. Medications at Discharge Home Medications albuterol sulfate 2.5 mg/3 mL (0.083 %) solution for nebulization 2.5 mg (3 mL) inhalation Q2H PRN PRN Dyspnea, wheezing #0 mL 08/21/23 ipratropium 0.5 mg-albuterol 3 mg (2.5 mg base)/3 mL nebulization soln 3 ml inhalation Q4HWA.RT #0 mL 08/21/23 lactose-reduced food with fiber 0.06 gram-1.5 kcal/mL oral liquid (Jevity 1.5 Jason) 240 ml G-tube 6X/DAY #0 mL 08/21/23 metoclopramide HCl 10 mg tablet (Reglan) 10 mg feeding tube Q8 #1 TAB 08/21/23 multivitamin-iron 9 mg-folic acid 400 mcg-calcium and minerals tablet (Therapeutic-M) 1 tab feeding tube BREAKFAST #0 tabs 08/21/23 acetaminophen 325 mg tablet 650 mg feeding tube Q4H PRN PRN Fever, pain 1-03/0508/28/23 carvedilol 6.25 mg tablet 6.25 mg feeding tube BIDCM 08/28/23 guaifenesin 200 mg tablet (Expectorant) 600 mg PO BID 08/28/23 magnesium oxide 400 mg feeding tube DAILY 08/28/23 melatonin 5 mg capsule 5 mg feeding tube DAILY 08/28/23 amoxicillin 400 mg-potassium clavulanate 57 mg/5 mL oral suspension 10 ml feeding tube BID #100 mL 09/02/23 fluconazole 40 mg/mL oral suspension 200 mg (5 mL) G-tube DAILY #0 mL 09/02/23 lansoprazole 15 mg capsule,delayed release 30 mg (2 x 15 mg) G-tube BID #0 caps 09/02/23 prednisone 20 mg tablet 40 mg (2 x 20 mg) G-tube BREAKFAST #0 tabs 09/02/23
--- NOTE | 2023-09-02 16:46 | NURSING ---
report called to TORIN Quintanilla at [facility] at this time
== END 2023-09-02 20:00 | disposition skilled nursing facility (03) | DRG 177 ==
LOC: ED 08-29 00:09 → PCU 08-29 06:13
PROVIDERS: Hospitalist; Admitting Provider Family Medicine; Emergency Provider Emergency Medicine; PCP Physician Assistant; Visit Provider Internal Medicine
DX: J69.0 Pneumonitis due to inhalation of food and vomit (principal); J96.21 Acute and chronic respiratory failure with hypoxia; E43 Unspecified severe protein-calorie malnutrition; J44.1 Chronic obstructive pulmonary disease with (acute) exacerbation; E87.1 Hypo-osmolality and hyponatremia; Z68.1 Body mass index [BMI] 19.9 or less, adult; Z93.1 Gastrostomy status; I10 Essential (primary) hypertension; K20.80 Other esophagitis without bleeding; E78.5 Hyperlipidemia, unspecified; Z87.891 Personal history of nicotine dependence; R53.81 Other malaise; Z66 Do not resuscitate; R13.10 Dysphagia, unspecified; Z85.89 Personal history of malignant neoplasm of other organs and systems; G47.00 Insomnia, unspecified
CPT/HCPCS: 36415; 71045; 71275; 80048; 80053; 83605; 84145; 85025; 85027; 87040; 94002; 94003; 94640; 94660; 94668; 94762; 97110; 97163; 97166; 97530; 97535; 97802; 99285; J7030; J7040; Q9967; A4216; J0295

== ENCOUNTER → 2023-09-04 | Outpatient (REF) | payer MEDICARE, SELFPAY ==
[2023-09-04 07:22] LABS: Absolute Lymphocyte Count 0.77 X10^3/uL (0.83-4.51); Absolute Neutrophil Count 13.8 X10^3/uL (2.0-7.7); Basophil# 0.02 X10^3/uL; Basophil% 0.1 % (0-1); Eosinophil# 0.29 X10^3/uL; Eosinophils% 1.8 % (0-5); Hematocrit 32.5 % (40-54); Hemoglobin 10.7 g/dL (13.0-16.5); Lymphocyte # 0.77 X10^3/ul (0.83-4.51); Lymphocyte % 4.8 % (19-41); Mean Corp Hgb Conc 32.9 g/dL (32-36); Mean Corpuscular Hgb 32.5 pg (27.0-32.0); Mean Corpuscular Volume 98.8 fL (80-94); Mean Platelet Vol. 9.5 fl (6.2-12.0); Monocyte# 1.07 X10^3/uL; Monocyte% 6.7 % (0-10); NRBC Flagged by Analyzer 0 % (0-5); Neutrophil # 13.76 X10^3/uL (2.7-7.7); Platelet Count 419 K/mm3 (150-450); RBC Distribution Width CV 15.7 % (11.6-14.6); RBC Distribution Width SD 57.2 fl (35.1-43.9); Red Blood Count 3.29 M/mm3 (4.6-6.2)
[2023-09-04 07:43] LABS: Vitamin B12 653 pg/mL (211-911); Vitamin D,25 Hydroxy 31.8 ng/mL
[2023-09-04 07:49] LABS: Anion Gap 7 (5-15); BUN 25 mg/dL (7-18); BUN/Creat Ratio 38.6 RATIO (10-20); Calcium,Total 9.2 mg/dL (8.5-10.1); Chloride 93 mmol/L (98-107); Cholesterol 149 mg/dL (200); Creatinine, Serum 0.65 mg/dL (0.70-1.30); EST Glomerular Filtration Rate 131 mL/min (>60); Est Glom Filt Rate - Afr Amer 159 mL/min (>60); Glucose 98 mg/dL (74-106); Hemoglobin A1c 5.8 % (3.8-5.6); High Density Lipoprotein 45 mg/dL; Magnesium 2.3 mg/dL (1.6-2.6); Potassium 4.5 mmol/L (3.5-5.1); Sodium Level 129 mmol/L (136-145); Thyroid Stim Hormone (TSH) 3.56 uIU/mL (0.358-3.74); Triglycerides 83 mg/dL; Very Low Density Lipoprotein 17 mg/dL (5-40)
== END ==
LOC: OLS.SW 05:00
PROVIDERS: PCP Physician Assistant; Visit Provider Internal Medicine
DX: J44.9 Chronic obstructive pulmonary disease, unspecified (principal); J96.21 Acute and chronic respiratory failure with hypoxia; E55.9 Vitamin D deficiency, unspecified; Z79.899 Other long term (current) drug therapy
CPT/HCPCS: 36415; 80048; 80061; 82306; 82607; 83036; 83735; 84443; 85025

== ENCOUNTER 2023-09-16 19:41 | Inpatient (IN) | payer MEDICARE, MEDICAID, SELFPAY ==
[2023-09-16] VITALS (8 sets, daily range): BP systolic 115–166; BP diastolic 94–116; PULSE 104–115; RESP 18–26; TEMP 35.7–36.9; O2SAT 92–95; BMI 16.7
--- NOTE | 2023-09-16 20:04 | EKG12_ITS ---
Test Reason : DYSRHYTHMIA Blood Pressure : / mmHG Vent. Rate : 113 BPM Atrial Rate : 113 BPM P-R Int : 138 ms QRS Dur : 078 ms QT Int : 342 ms P-R-T Axes : 085 050 079 degrees QTc Int : 469 ms Sinus tachycardia Biatrial enlargement Abnormal ECG Confirmed by ROSE WILD, HILDA ([id number]), editor [employer] ([id number]) on 09/23/2023 1:23:10 PM Referred By: LILY Confirmed By:PATRICIA ROSE MD
--- NOTE | 2023-09-16 20:07 | EX.ED.DYSGE1 ---
HPI History of Present Illness Chief Complaint: Shortness of Breath Narrative Narrative: Patient is a 63-year-old male with history of COPD who still smokes 1 pack/day who is on 6 L nasal cannula oxygen is presenting to the emergency department for worsening shortness of breath. Per the patient, he has had a cough that has been intermittent. Patient went to being discharged on 09/02/2023 with aspiration pneumonia was placed on Augmentin for home. He has finished this, he is no longer on any steroids. Patient states today, he could not get it together. He states he was so short of breath he could not perform any activities, he went down on his knees and I called the ambulance. Patient dates he does wear his oxygen at all times. He states he is currently trying to quit smoking. Denies any fever or chills. Denies any change in his cough. Patient states that he does not have any DuoNeb or albuterol nebulizer packets. [facility] Medical History Asthma Chronic hyponatremia COPD (chronic obstructive pulmonary disease) History of alcohol abuse History of GI bleed History of throat cancer History of tobacco use Hypertension Severe malnutrition Home Medications albuterol sulfate 2.5 mg/3 mL (0.083 %) solution for nebulization 2.5 mg (3 mL) inhalation Q2H PRN PRN Dyspnea, wheezing #0 mL 08/21/23 [Rx Last Taken Unknown] ipratropium 0.5 mg-albuterol 3 mg (2.5 mg base)/3 mL nebulization soln 3 ml inhalation Q4HWA.RT #0 mL 08/21/23 [Rx Last Taken Unknown] lactose-reduced food with fiber 0.06 gram-1.5 kcal/mL oral liquid (Jevity 1.5 Jason) 240 ml G-tube 6X/DAY #0 mL 08/21/23 [Rx Last Taken Unknown] metoclopramide HCl 10 mg tablet (Reglan) 10 mg feeding tube Q8 #1 TAB 08/21/23 [Rx Last Taken Unknown] multivitamin-iron 9 mg-folic acid 400 mcg-calcium and minerals tablet (Therapeutic-M) 1 tab feeding tube BREAKFAST #0 tabs 08/21/23 [Rx Last Taken Unknown] acetaminophen 325 mg tablet 650 mg feeding tube Q4H PRN PRN Fever, pain 1-03/0508/28/23 [History Last Taken Unknown] carvedilol 6.25 mg tablet 6.25 mg feeding tube BIDCM 08/28/23 [History Last Taken Unknown] guaifenesin 200 mg tablet (Expectorant) 600 mg PO BID 08/28/23 [History Last Taken Unknown] magnesium oxide 400 mg feeding tube DAILY 08/28/23 [History Last Taken Unknown] melatonin 5 mg capsule 5 mg feeding tube DAILY 08/28/23 [History Last Taken Unknown] amoxicillin 400 mg-potassium clavulanate 57 mg/5 mL oral suspension 10 ml feeding tube BID #100 mL 09/02/23 [Rx Last Taken Unknown] fluconazole 40 mg/mL oral suspension 200 mg (5 mL) G-tube DAILY #0 mL 09/02/23 [Rx Last Taken Unknown] lansoprazole 15 mg capsule,delayed release 30 mg (2 x 15 mg) G-tube BID #0 caps 09/02/23 [Rx Last Taken Unknown] prednisone 20 mg tablet 40 mg (2 x 20 mg) G-tube BREAKFAST #0 tabs 09/02/23 [Rx Last Taken Unknown] Allergy/AdvReac Type Severity Reaction Status Date / Time No Known Allergies Allergy Verified 08/13/23 21:05 Family History Mother No problems noted. Father No problems noted. Surgical History History of throat surgery Social History (Updated 08/29/23 @ 01:[address] Loren Marte MD) household members: none housing: [facility] current occupational status: employed Smoking Status: Former smoker how long ago did patient quit smoking: Quit during most recent admission 08/11/23. alcohol intake: former details: Prior 5 shots hard liquor, several beers daily, none since 07/2023 admission substance use type: does not use ROS ROS ED ROS Narrative Constitutional: Negative for fever, chills, weight loss, weakness Eyes: Negative for vision loss, vision change, double vision ENT: Negative for any sore throat, ear pain, congestion Cardiovascular: Negative for any chest pain, tightness, palpitations Respiratory: Negative for any sputum production, hemoptysis. Positive for cough, dyspnea, dyspnea on exertion, orthopnea Gastrointestinal: Negative for any abdominal pain, nausea, vomiting, diarrhea, constipation, blood in stool, blood in vomit : Negative for any urinary frequency, dysuria, retention, blood in urine Muscle skeletal: Negative for any neck pain, back pain Neurological: Negative for any headache, syncope, dizziness Skin: Negative for any rashes, itching, abrasions, lacerations Psychiatric: Negative for any depression, anxiety, stress, suicidal ideation, homicidal ideation Hematologic: Negative for any excessive bruising, easy bleeding EXAM Physical Exam Narrative Exam Narrative: Vital signs reviewed. Patient on his 6 L nasal cannula is 91 to 93%. Patient slightly tachypneic. HEET: Head normocephalic atraumatic, TMs clear bilaterally. Posterior pharynx is clear, moist mucous membranes. Nares clear bilaterally. Neck: Supple with no lymphadenopathy or tenderness. No signs of meningismus. Cardiac: Regular rate and rhythm no murmurs gallops or rubs, equal peripheral pulses bilaterally. Respiratory: Patient has no significant wheezing, patient does have some coarse breath sounds to the left and right middle lobes.. No chest tenderness. Abdomen: Soft, nontender, nondistended. No abdominal bruit or pulsatile masses. No hepatosplenomegaly Extremities: No peripheral edema, no signs of gross trauma or deformity. Active full range of motion of all extremities. Neuro: Cranial nerves II through XII intact, no focal neurological deficits. Skin: Clean dry and intact with no rash, purpura, petechiae, vesicles or pustules. Backs/flank: No CVA tenderness, no midline spinal tenderness, no deformity. Psych: Normal mood and affect. No SI, HI or acute psychosis. Const Vital Signs: 09/16/23 19:41 09/16/23 19:47 09/16/23 19:46 Temperature 96.3 F L 97.4 F L Temperature Source Temporal Temporal Pulse Rate 108 H 108 H Respiratory Rate 20 H 23 H Respiratory Effort Short of Breath Respiratory Pattern Tachypnea Blood Pressure 166/116 H 166/116 H Blood Pressure Mean 132 132 Pulse Ox 95 94 Oxygen Delivery Method Nasal Cannula Nasal Cannula Nasal Cannula Oxygen Flow Rate (L/min) 6 6 6 09/16/23 20:17 09/16/23 21:14 09/16/23 20:46 Temperature 98.5 F Temperature Source Temporal Pulse Rate 115 H 110 H Respiratory Rate 26 H 25 H Respiratory Effort Respiratory Pattern Tachypnea Blood Pressure 115/94 H Blood Pressure Mean 101 Pulse Ox 94 94 Oxygen Delivery Method Nasal Cannula Nasal Cannula Oxygen Flow Rate (L/min) 4 4 09/16/23 22:00 Temperature Temperature Source Pulse Rate 104 H Respiratory Rate 18 Respiratory Effort Respiratory Pattern Blood Pressure Blood Pressure Mean Pulse Ox 94 Oxygen Delivery Method Nasal Cannula Oxygen Flow Rate (L/min) 4 Positive cachectic General Appearance ED: cachectic Nutritional Appearance: cachectic MDM MDM Lab Data Labs: Laboratory Results - last 24 hr 09/16/23 20:50 WBC 11.1 H RBC 3.57 L Hgb 11.7 L Hct 36.5 L MCV 102.2 H MCH 32.8 H MCHC 32.1 RDW Std Deviation 58.4 H RDW Coeff of Tony 15.4 H Plt Count 413 MPV 8.5 Immature Gran % (Auto) 0.400 Neut % (Auto) 84.1 H Lymph % (Auto) 7.9 L Corson % (Auto) 6.2 Eos % (Auto) 1.0 Baso % (Auto) 0.4 Absolute Neuts (auto) 9.3 H Absolute Lymphs (auto) 0.87 Nucleated RBC % 0 Sodium 135 L Potassium 4.4 Chloride 99 Carbon Dioxide 32.0 Anion Gap 4 L BUN 14 Creatinine 0.82 Estim Creat Clear Calc 75.33 Est GFR (MDRD) Af Amer 121 Est GFR (MDRD) Non-Af 100 BUN/Creatinine Ratio 17.0 Glucose 128 H Calcium 9.4 Troponin I High Sens 11 B-Natriuretic Peptide 60.5 Radiography Diagnostic Testing: Clinical Impression(s) from Imaging Studies Chest X-Ray 09/16/23 20:58 IMPRESSION: Ill-defined patchy pulmonary opacities may correlate with the prior examination suggesting multifocal pneumonia. Hyperinflated lungs suggest COPD. Electronically Signed: Terence Medrano DO at 21:14 EDT , EKG Sinus tachycardia: Attestation: I personally reviewed and interpreted this EKG as follows: Comments: Sinus tachycardia with a rate of 113 bpm, NV interval 138 ms, QRS duration 70 ms, no acute ST elevation, no acute infarct or Treatment and Re-Evaluation :: Differential diagnosis includes however is not limited to: COPD exacerbation, community-acquired pneumonia, aspiration pneumonia, hospital-acquired pneumonia, influenza, COVID, RSV, acute on chronic COPD Patient appears to be in no obvious distress, patient does look uncomfortable, slight tachypneic. Vital signs are stable on the 6 L. Patient patient will receive a full cardiac and respiratory workup. This will include laboratory values, troponins, chest x-ray. Patient be given DuoNeb, albuterol inhaler as well as 60 mg of IV Solu-Medrol. Patient will be reevaluated. Patient's chest x-ray showed ill-defined patchy pulmonary opacities may correlate with the prior examination suggesting multifocal pneumonia, hyperinflated lungs secondary to COPD. Patient's laboratory values showed a slight leukocytosis with a white blood count of 11.1, this was 16 on 03 September. Patient's chemistries were unremarkable. Troponin was negative, BNP was negative. Patient COVID-19, influenza, RSV was negative. Patient did get up and attempt to ambulate, patient dropped to 84%. Patient at this time cannot go home. Patient be treated for aspiration pneumonia. Patient does have a PEG tube that was placed secondary to aspiration however continues to eat food, continues to smoke 1 pack/day. I spoke with hospitalist who is agreeable. Patient be admitted to [facility]. Discharge Plan Triage Chief Complaint: Shortness of Breath ED Midlevel Provider: Virgilio Marie ED Provider: Anne Fregoso Dx/Rx/DC Orders Clinical Impression: Aspiration pneumonia, Hypoxia, Tobacco use, End stage COPD Prescriptions: No Action ipratropium-albuterol 0.5 mg-3 mg(2.5 mg base)/3 mL Solution For Nebulization 3 ml inhalation Q4HWA.RT Qty: 0 0RF albuterol sulfate 2.5 mg /3 mL (0.083 %) Solution For Nebulization 2.5 mg inhalation Q2H PRN PRN (Reason: Dyspnea, wheezing) Qty: 0 0RF Therapeutic-M 9 mg iron-400 mcg Tablet 1 tab feeding tube BREAKFAST Qty: 0 0RF Jevity 1.5 Jason 0.06 gram-1.5 kcal/mL Liquid 240 ml G-tube 6X/DAY Qty: 0 0RF metoclopramide HCl [Reglan] 10 mg tablet 10 mg feeding tube Q8 Qty: 1 0RF guaifenesin [Expectorant] 200 mg tablet 600 mg PO BID Rx Instructions: stop day 09/03/23 magnesium oxide 400 mg magnesium capsule 400 mg feeding tube DAILY melatonin 5 mg capsule 5 mg feeding tube DAILY acetaminophen 325 mg Tablet 650 mg feeding tube Q4H PRN PRN (Reason: Fever, pain 1-03/05) carvedilol 6.25 mg Tablet 6.25 mg feeding tube BIDCM prednisone 20 mg Tablet 40 mg G-tube BREAKFAST Qty: 0 0RF Rx Instructions: 40 mg through G-tube for 3 days starting 09/02/2023, then 20 mg daily through G-tube x 5 days thereafter and then stop lansoprazole 15 mg Capsule,Delayed Release(Dr/Ec) 30 mg G-tube BID Qty: 0 0RF amoxicillin-pot clavulanate 400-57 mg/5 mL suspension for reconstitution 10 ml feeding tube BID Qty: 100 0RF Rx Instructions: Administer for 5 days starting 08/27/2023 then discontinue fluconazole 40 mg/mL Suspension For Reconstitution 200 mg G-tube DAILY Qty: 0 0RF Rx Instructions: Administer for 7 days starting 09/02/2023 then discontinue Primary Care Provider: Cha Powell Referrals: Cha Powell, PA [Primary Care Provider] - Disposition Disposition: Acute Care [facility]
[2023-09-16] MEDS: Albuterol 2.5 MG/3 ML VIAL.NEB. INHALATION (20:17)
[2023-09-16] MEDS: Ipratropium/Albuterol Sulfate 3 ML AMPUL.NEB INHALATION (20:17)
[2023-09-16] MEDS: MethylPREDNISolone 125 MG/2 ML Vial 60 MG IV (20:43)
--- NOTE | 2023-09-16 20:58 | RAD_ITS ---
EXAM: XR CHEST, 1 VIEW CLINICAL INDICATION: cough TECHNIQUE: Frontal view of the chest. COMPARISON: 08/31/2023 chest radiograph and CTA chest. FINDINGS: LUNGS AND PLEURAL SPACES: Ill-defined patchy pulmonary opacities may correlate with the prior examination suggesting multifocal pneumonia. Hyperinflated lungs suggest COPD. No pneumothorax. No effusion. HEART: No significant abnormality. Cardiac silhouette not enlarged. MEDIASTINUM: Central airways and mediastinal contour are unremarkable. BONES/JOINTS: No significant abnormality. No acute fracture. SOFT TISSUES: No significant abnormality. RAD/Chest 1 View (Portable) IMPRESSION: Ill-defined patchy pulmonary opacities may correlate with the prior examination suggesting multifocal pneumonia. Hyperinflated lungs suggest COPD. Electronically Signed: Terence Medrano DO at 21:14 EDT ,
[2023-09-16 21:02] LABS: Absolute Lymphocyte Count 0.87 X10^3/uL (0.83-4.51); Absolute Neutrophil Count 9.3 X10^3/uL (2.0-7.7); Basophil# 0.04 X10^3/uL; Basophil% 0.4 % (0-1); Eosinophil# 0.11 X10^3/uL; Hematocrit 36.5 % (40-54); Hemoglobin 11.7 g/dL (13.0-16.5); Lymphocyte # 0.87 X10^3/ul (0.83-4.51); Lymphocyte % 7.9 % (19-41); Mean Corp Hgb Conc 32.1 g/dL (32-36); Mean Corpuscular Hgb 32.8 pg (27.0-32.0); Mean Corpuscular Volume 102.2 fL (80-94); Mean Platelet Vol. 8.5 fl (6.2-12.0); Monocyte# 0.69 X10^3/uL; Monocyte% 6.2 % (0-10); NRBC Flagged by Analyzer 0 % (0-5); Neutrophil # 9.33 X10^3/uL (2.7-7.7); Neutrophil % 84.1 % (47-70); Platelet Count 413 K/mm3 (150-450); RBC Distribution Width CV 15.4 % (11.6-14.6); RBC Distribution Width SD 58.4 fl (35.1-43.9); Red Blood Count 3.57 M/mm3 (4.6-6.2); White Blood Count 11.1 K/mm3 (4.4-11.0)
--- NOTE | 2023-09-16 21:08 | CPS ---
x1 Albuterol given to pt. in ER as well
[2023-09-16 21:18] LABS: BNP,B-Type NATRIURETIC PEPTIDE 60.5 pg/mL (0-100)
[2023-09-16 21:22] LABS: Anion Gap 4 (5-15); BUN 14 mg/dL (7-18); Calcium,Total 9.4 mg/dL (8.5-10.1); Chloride 99 mmol/L (98-107); Creatinine, Serum 0.82 mg/dL (0.70-1.30); EST Glomerular Filtration Rate 100 mL/min (>60); Est Glom Filt Rate - Afr Amer 121 mL/min (>60); Estimated Creatinine Clearance 75.33 ml/min; Glucose 128 mg/dL (74-106); Potassium 4.4 mmol/L (3.5-5.1); Sodium Level 135 mmol/L (136-145); Troponin-I HS 11 pg/mL (3.0-78.0)
--- NOTE | 2023-09-16 22:34 | HP.PCM.HOS_ITS ---
[facility] - General General Date of Admission: 09/16/23 Date of Service: 09/16/23 Chief Complaint: Worsening SOB. [facility] Narrative CAITIE JIN, is a 63 M with a past medical history of ongoing tobacco abuse; with no previous diagnosis of COPD, chronic hypoxic respiratory failure on 6L NC, essential hypertension, history of NSTEMI-II due to AE COPD and Influenza A (07/2023), history of head and neck cancer; status post radiation with subsequent oropharyngeal dysphagia and recent history of aspiration pneumonia with chronic dysphagia admitted here from August 29, 2023 to September 02, 2023; s/p PEG-tube for severe protein calorie malnutrition and a chronic history of avoiding medical attention with medical noncompliance who presents to [facility] ER complaining of worsening SOB. Mr. Jin reports his symptoms began shortly after being discharged on September 02, 2023 as he was placed on Augmentin for treatment of his aspiration pneumonia which he claims he has finished. He is also no longer on any steroids and he has apparently run out of nebulizers which has resulted in his dyspnea on exertion now progressing to shortness of breath at rest in spite of wearing his oxygen at all times. He further states he cannot perform any activities without severe SOB which caused him to collapse down to his knees and call 911. Unfortunately, he continues to smoke but he claims he is trying to quit. He denies associated fever, chills, nausea, vomiting or change in his chronic cough but he is still having difficulty with swallowing and is not likely taking his tube feeding as prescribed. In the ER he was diagnosed with clinical evidence of acute exacerbation of COPD complicated by [id number] respiratory insufficiency with patient saturating 84% in spite of 6 L nasal cannula in the setting of ongoing tobacco abuse and medical noncompliance in the setting of recent aspiration pneumonia with chronic dysphagia; status post PEG tube placement last admission and he was then admitted to the general medical floor for ongoing care for status expected to be greater than 48 hours. [facility] Medical History Asthma Chronic hyponatremia COPD (chronic obstructive pulmonary disease) History of alcohol abuse History of GI bleed History of throat cancer History of tobacco use Hypertension Severe malnutrition Home Medications albuterol sulfate 2.5 mg/3 mL (0.083 %) solution for nebulization 2.5 mg (3 mL) inhalation Q2H PRN PRN Dyspnea, wheezing #0 mL 08/21/23 [Rx Last Taken Unknown] ipratropium 0.5 mg-albuterol 3 mg (2.5 mg base)/3 mL nebulization soln 3 ml inhalation Q4HWA.RT #0 mL 08/21/23 [Rx Last Taken Unknown] lactose-reduced food with fiber 0.06 gram-1.5 kcal/mL oral liquid (Jevity 1.5 Jason) 240 ml G-tube 6X/DAY #0 mL 08/21/23 [Rx Last Taken Unknown] metoclopramide HCl 10 mg tablet (Reglan) 10 mg feeding tube Q8 #1 TAB 08/21/23 [Rx Last Taken Unknown] multivitamin-iron 9 mg-folic acid 400 mcg-calcium and minerals tablet (Therapeutic-M) 1 tab feeding tube BREAKFAST #0 tabs 08/21/23 [Rx Last Taken Unknown] acetaminophen 325 mg tablet 650 mg feeding tube Q4H PRN PRN Fever, pain 1-03/0508/28/23 [History Last Taken Unknown] carvedilol 6.25 mg tablet 6.25 mg feeding tube BIDCM 08/28/23 [History Last Taken Unknown] guaifenesin 200 mg tablet (Expectorant) 600 mg PO BID 08/28/23 [History Last Taken Unknown] magnesium oxide 400 mg feeding tube DAILY 08/28/23 [History Last Taken Unknown] melatonin 5 mg capsule 5 mg feeding tube DAILY 08/28/23 [History Last Taken Unknown] amoxicillin 400 mg-potassium clavulanate 57 mg/5 mL oral suspension 10 ml feeding tube BID #100 mL 09/02/23 [Rx Last Taken Unknown] fluconazole 40 mg/mL oral suspension 200 mg (5 mL) G-tube DAILY #0 mL 09/02/23 [Rx Last Taken Unknown] lansoprazole 15 mg capsule,delayed release 30 mg (2 x 15 mg) G-tube BID #0 caps 09/02/23 [Rx Last Taken Unknown] prednisone 20 mg tablet 40 mg (2 x 20 mg) G-tube BREAKFAST #0 tabs 09/02/23 [Rx Last Taken Unknown] Allergy/AdvReac Type Severity Reaction Status Date / Time No Known Allergies Allergy Verified 08/13/23 21:05 Family History Mother No problems noted. Father No problems noted. Surgical History History of throat surgery Social History household members: none housing: snf current occupational status: employed Smoking Status: Former smoker how long ago did patient quit smoking: Quit during most recent admission 08/11/23. alcohol intake: former details: Prior 5 shots hard liquor, several beers daily, none since 07/2023 admission substance use type: does not use ROS ROS Narrative Review of systems: General: Patient denies fever or chills. HENT: Denies headache, denies stuffy nose, denies sore throat EYES: Denies changes in vision or discharge from eyes. Resp: Patient admits to shortness of breath and cough with dyspnea on exertion as per HPI. Cardiac: Denies chest pain, palpitations or heart racing. GI: Denies abdominal pain, denies changes in bowel, denies nausea or vomiting. : Denies changes in urination Extremity: Denies swelling Musculoskeletal: Patient denies arthralgias or myalgias. Neuro: Patient denies headache, paresthesias or focal neurologic weakness. Heme: Denies any bleeding or bruising Skin: Denies rashes Psychiatric: No complaints voiced related to uncontrolled depression or anxiety. Endocrine: No polyuria, polydipsia or polyphagia. The rest of the 14 point ROS was negative except for positives in HPI. Vital Signs Vital Signs Vital Signs: 09/16/23 19:41 09/16/23 19:47 09/16/23 19:46 Temperature 96.3 F L 97.4 F L Temperature Source Temporal Temporal Pulse Rate 108 H 108 H Respiratory Rate 20 H 23 H Respiratory Effort Short of Breath Respiratory Pattern Tachypnea Blood Pressure 166/116 H 166/116 H Blood Pressure Mean 132 132 Pulse Ox 95 94 Oxygen Delivery Method Nasal Cannula Nasal Cannula Nasal Cannula Oxygen Flow Rate (L/min) 6 6 6 09/16/23 20:17 09/16/23 21:14 09/16/23 20:46 Temperature 98.5 F Temperature Source Temporal Pulse Rate 115 H 110 H Respiratory Rate 26 H 25 H Respiratory Effort Respiratory Pattern Tachypnea Blood Pressure 115/94 H Blood Pressure Mean 101 Pulse Ox 94 94 Oxygen Delivery Method Nasal Cannula Nasal Cannula Oxygen Flow Rate (L/min) 4 4 09/16/23 22:00 Temperature Temperature Source Pulse Rate 104 H Respiratory Rate 18 Respiratory Effort Respiratory Pattern Blood Pressure Blood Pressure Mean Pulse Ox 94 Oxygen Delivery Method Nasal Cannula Oxygen Flow Rate (L/min) 4 Weight Weight: 130 lb 11.746 oz Body Mass Index (BMI) 16.7 Physical Exam Const alert, oriented x3 and no apparent distress Constitutional Narrative: Patient appears cachectic, chronically ill and malnourished. General Appearance: cooperative HEENT normocephalic, head/scalp atraumatic, hearing grossly normal bilaterally and moist oral mucous membranes HEENT Narrative: Patient's voice is raspy with wet cough. Eyes PERRL and EOMs intact bilaterally Neck no lymphadenopathy and supple Resp no retractions and no use of accessory muscles Resp Narrative: Coarse breath sounds with rhonchi throughout left lung and right middle lobe. Auscultation: rhonchi Cardio regular rate and regular rhythm GI normal to inspection, nondistended, normoactive bowel sounds, soft to palpation, non-tender and non-distended GI Narrative: PEG tube in place. Extremity normal to inspection and full ROM Skin Skin Narrative: Patient has no evidence of rash at this time. Neuro oriented x3, CN's II-XII intact bilaterally, moves all extremities and no focal motor deficits Sensorium / Orientation: awake, alert, oriented to person, oriented to place and oriented to time Speech: speech normal Psych affect normal Results Medical Records Data Attestation: I reviewed the patient's medical records Lab / Micro Data Attestation: I reviewed the patient's lab results. 09/16/23 20:50 09/16/23 20:50 Labs: Laboratory Results - last 24 hr 09/16/23 20:50: WBC 11.1 H, RBC 3.57 L, Hgb 11.7 L, Hct 36.5 L, MCV 102.2 H, MCH 32.8 H, MCHC 32.1, RDW Std Deviation 58.4 H, RDW Coeff of Tony 15.4 H, Plt Count 413, MPV 8.5, Immature Gran % (Auto) 0.400, Neut % (Auto) 84.1 H, Lymph % (Auto) 7.9 L, Nicholas % (Auto) 6.2, Eos % (Auto) 1.0, Baso % (Auto) 0.4, Absolute Neuts (auto) 9.3 H, Absolute Lymphs (auto) 0.87, Nucleated RBC % 0, Sodium 135 L, Potassium 4.4, Chloride 99, Carbon Dioxide 32.0, Anion Gap 4 L, BUN 14, Creatinine 0.82, Estim Creat Clear Calc 75.33, Est GFR (MDRD) Af Amer 121, Est GFR (MDRD) Non-Af 100, BUN/Creatinine Ratio 17.0, Glucose 128 H, Calcium 9.4, Troponin I High Sens 11, B-Natriuretic Peptide 60.5 Micro: Microbiology 09/16/23 20:40 Mucosa - Nose SARS-CoV-2, Influenza & RSV (PCR) - Final Imaging Radiology Impression Chest X-Ray 09/16/23 20:58 IMPRESSION: Ill-defined patchy pulmonary opacities may correlate with the prior examination suggesting multifocal pneumonia. Hyperinflated lungs suggest COPD. Electronically Signed: Terence Medrano DO at 21:14 EDT , Assessment & Plan Assessment/Plan (1) COPD exacerbation: (2) Tobacco use: (3) Respiratory insufficiency: (4) Generalized weakness: (5) Medical non-compliance: PLAN: Plan 1. Acute exacerbation of COPD in the setting of ongoing tobacco abuse - Admit to general medical floor. Continue IV Zosyn and also start IV Solu-Medrol with scheduled and as needed nebulizers. Tobacco cessation will once again be st rongly encouraged with nicotine patch offered to control cravings. 2. Multifocal pneumonia with clinical evidence of jeaif-bn-montymn respiratory insufficiency with patient saturating 84% in spite of 6 L nasal cannula complicating #1 -Continue broad-spectrum antibiotics with steroids and deconge stants. Wean additional supplemental oxygen back to baseline levels as tolerated. 3. Recent history of aspiration pneumonia with chronic dysphagia admitted here from August 29, 2023 to September 02, 2023; s/p PEG-tube and a chronic history of avoiding medical attention with medical noncompliance compounding #1 & #2 - Noted. We will consult clinical dietitian see patient on rounds in the a.m. for further recommendations regarding optimizing his tube feed and helping educate patient not to try to ingest things orally with help appreciated in advance. 4. Generalized weakness with ambulatory dysfunction arising from #1 to #3 - PT/OT case management consult and treat at this patient will likely require ECF placement due to his inability to care for himself at home with help appreciated in advance. 5. Essential hypertension - Resume home regimen plus give as needed hydralazine for systolic blood pressure greater than 160 mmHg. 6. History of NSTEMI-II due to AE COPD and Influenza A (07/2023) - Noted. 7. DVT prophylaxis - Lovenox 40 mg sq daily. Total time: Approximately 55 minutes. Charges/Coding Visit Charges Inpatient E&M: 43883 Init Hosp L2
[2023-09-16] MEDS: Ampicillin/Sulbactam 3 GM in 0.9% Normal Saline (100mL MB+) 100 ML IV (22:57)
[2023-09-17] VITALS (10 sets, daily range): BP systolic 106–135; BP diastolic 72–94; PULSE 74–103; RESP 16–26; TEMP 36.4–36.6; O2SAT 92–96; BMI 16.5
[2023-09-17] MEDS: 0.9% Normal Saline (1000mL) 1,000 ML 70 ML IV (00:38)
[2023-09-17] MEDS: 0.9% Saline Lock 10 ML Syringe IV (00:39)
[2023-09-17] MEDS: Acetaminophen 650 MG/20 ML UDC GT (00:44)
[2023-09-17] MEDS: Ipratropium/Albuterol Sulfate 3 ML AMPUL.NEB INHALATION ×4 (01:30→19:53)
[2023-09-17] MEDS: Piperacil/Tazobactam 3.375 GM in 0.9% Normal Saline (50mL MB+) 50 ML IV ×2 (05:34→14:13)
[2023-09-17] MEDS: Metoclopramide 10 MG Tablet GT ×3 (05:38→21:28)
[2023-09-17] MEDS: Jevity 1.5. 1,000 ML Bottle 240 ML GT ×6 (05:38→21:28)
[2023-09-17 08:10] LABS: ALB/GLOB Ratio 0.5 RATIO (0.9-2.4); AST(SGOT) 14 U/L (15-37); Alanine Aminotransfer ALT/SGPT 16 U/L (16-61); Albumin, Serum 2.2 g/dL (3.2-5.0); Alkaline Phosphatase 107 U/L (45-117); Anion Gap 6 (5-15); BUN 15 mg/dL (7-18); BUN/Creat Ratio 20.6 RATIO (10-20); Calcium,Total 8.4 mg/dL (8.5-10.1); Chloride 97 mmol/L (98-107); Creatinine, Serum 0.73 mg/dL (0.70-1.30); EST Glomerular Filtration Rate 115 mL/min (>60); Est Glom Filt Rate - Afr Amer 139 mL/min (>60); Globulin 4.5 g/dL (2.2-4.2); Glucose 248 mg/dL (74-106); Magnesium 1.6 mg/dL (1.6-2.6); Potassium 4.2 mmol/L (3.5-5.1); Protein, Total 6.7 g/dL (6.4-8.2); Sodium Level 132 mmol/L (136-145); Thyroid Stim Hormone (TSH) 0.61 uIU/mL (0.358-3.74)
[2023-09-17 08:21] LABS: Absolute Lymphocyte Count 0.27 X10^3/uL (0.83-4.51); Absolute Neutrophil Count 6.5 X10^3/uL (2.0-7.7); Basophil# 0.01 X10^3/uL; Basophil% 0.1 % (0-1); Hematocrit 33.7 % (40-54); Hemoglobin 11.1 g/dL (13.0-16.5); Lymphocyte # 0.27 X10^3/ul (0.83-4.51); Mean Corp Hgb Conc 32.9 g/dL (32-36); Mean Corpuscular Hgb 33.2 pg (27.0-32.0); Mean Corpuscular Volume 100.9 fL (80-94); Mean Platelet Vol. 8.9 fl (6.2-12.0); Monocyte# 0.04 X10^3/uL; Monocyte% 0.6 % (0-10); NRBC Flagged by Analyzer 0 % (0-5); Neutrophil # 6.47 X10^3/uL (2.7-7.7); POSITIVE DIFFERENTIAL YES; Platelet Count 396 K/mm3 (150-450); RBC Distribution Width CV 15.2 % (11.6-14.6); RBC Distribution Width SD 56.8 fl (35.1-43.9); Red Blood Count 3.34 M/mm3 (4.6-6.2); White Blood Count 6.8 K/mm3 (4.4-11.0)
--- NOTE | 2023-09-17 09:12 | PCM.PN.HOSP ---
Reason for Visit Reason for Visit: Diagnoses Chronic obstructive pulmonary disease with (acute) exacerbation (09/16/23) Other abnormalities of breathing (09/16/23) Weakness (09/16/23) Tobacco use (09/16/23) Patient's noncompliance with other medical treatment and regimen due to unspecified reason (09/16/23) Objective Data Objective Data Vital Signs: Vital Signs Temp Pulse Resp BP Pulse Ox O2 Del Method O2 Flow Rate 97.8 F 89 20 H 106/79 95 Nasal Cannula 6 09/17/23 02:55 09/17/23 07:30 09/17/23 07:30 09/17/23 02:55 09/17/23 08:49 09/17/23 08:49 09/17/23 08:49 Oxygen Flow Rate (L/min) 6 Oxygen Delivery Method Nasal Cannula Weight: 129 lb 3.054 oz Body Mass Index (BMI) 16.5 Intake & Output: Intake and Output for Last 24 Hours 09/15/23 09/16/23 09/17/23 23:59 23:59 23:59 Intake Total 112 / 112 360 / 360 Output Total 250 / 250 Balance 112 / 112 110 / 110 Lab / Micro Data 09/17/23 06:35 09/17/23 06:35 Labs: Laboratory Results - last 24 hr 09/16/23 20:50: WBC 11.1 H, RBC 3.57 L, Hgb 11.7 L, Hct 36.5 L, MCV 102.2 H, MCH 32.8 H, MCHC 32.1, RDW Std Deviation 58.4 H, RDW Coeff of Tony 15.4 H, Plt Count 413, MPV 8.5, Immature Gran % (Auto) 0.400, Neut % (Auto) 84.1 H, Lymph % (Auto) 7.9 L, [place] % (Auto) 6.2, Eos % (Auto) 1.0, Baso % (Auto) 0.4, Absolute Neuts (auto) 9.3 H, Absolute Lymphs (auto) 0.87, Nucleated RBC % 0, Sodium 135 L, Potassium 4.4, Chloride 99, Carbon Dioxide 32.0, Anion Gap 4 L, BUN 14, Creatinine 0.82, Estim Creat Clear Calc 75.33, Est GFR (MDRD) Af Amer 121, Est GFR (MDRD) Non-Af 100, BUN/Creatinine Ratio 17.0, Glucose 128 H, Calcium 9.4, Troponin I High Sens 11, B-Natriuretic Peptide 60.5 09/17/23 06:35: WBC 6.8, RBC 3.34 L, Hgb 11.1 L, Hct 33.7 L, MCV 100.9 H, MCH 33.2 H, MCHC 32.9, RDW Std Deviation 56.8 H, RDW Coeff of Tony 15.2 H, Plt Count 396, MPV 8.9, Immature Gran % (Auto) 0.300, Neut % (Auto) 95.0 H, Lymph % (Auto) 4.0 L, [place] % (Auto) 0.6, Eos % (Auto) 0.0, Baso % (Auto) 0.1, Absolute Neuts (auto) 6.5, Absolute Lymphs (auto) 0.27 L, Nucleated RBC % 0, Sodium 132 L, Potassium 4.2, Chloride 97 L, Carbon Dioxide 29.0, Anion Gap 6, BUN 15, Creatinine 0.73, Estim Creat Clear Calc 76.30, Est GFR (MDRD) Af Amer 139, Est GFR (MDRD) Non-Af 115, BUN/Creatinine Ratio 20.6 H, Glucose 248 H, Calcium 8.4 L, Phosphorus 3.0, Magnesium 1.6, Total Bilirubin 0.20, AST 14 L, ALT 16, Alkaline Phosphatase 107, Total Protein 6.7, Albumin 2.2 L, Globulin 4.5 H, Albumin/Globulin Ratio 0.5 L, TSH 0.61 Micro: Microbiology 09/16/23 20:40 Mucosa - Nose SARS-CoV-2, Influenza & RSV (PCR) - Final Radiography Diagnostic Testing: Radiology Impression Chest X-Ray 09/16/23 20:58 IMPRESSION: Ill-defined patchy pulmonary opacities may correlate with the prior examination suggesting multifocal pneumonia. Hyperinflated lungs suggest COPD. Electronically Signed: Terence Medrano DO at 21:14 EDT , Physical Exam Narrative Seen and examined. Patient admitted for COPD exacerbation, shortness of breath worse for 3 to 4 days. On 6 L of oxygen. History of tongue/throat cancer. Has PEG tube. Supposed to be n.p.o. because of aspiration pneumonia but patient is still eating. During last admission between 08/28/2023 to 09/02/2023 patient was admitted for aspiration pneumonia and was told to strictly NPO. Nonadherent Physical exam General: Alert, Oriented x3, Cooperative HEENT: Atraumatic, PERRLA, EOMI, Normocephalic Oral: No Gingival or Mucosal Lesions/ Ulcerations. Oral mucosa dry Neck: Supple, No JVD, Negative Carotid Bruits Chest wall/Lungs: Air entry severely diminished in bilateral lung bases. No crepitation/rhonchi Cardiovascular: Regular rate, Regular Rhythm, Normal S1, Normal S2, No M/G/R Abdomen: Bowel Sounds Present, Soft, Non Tender, Non-Distended : No dysuria. No renal angle tenderness. No suprapubic tenderness. Extremities: No edema, Capillary Refill Less than 3 Seconds Skin: No rashes, No breakdown Musculoskeletal: No Tenderness to Palpation of Joints or Extremities Neurological: Cranial nerves II-XII grossly intact, DTR 2+/4. No acute focal neurological deficit. Psych/Mental Status: Flat affect. Assessment & Plan Assessment/Plan (1) COPD exacerbation: (2) Tobacco use: (3) Respiratory insufficiency: (4) Generalized weakness: (5) Medical non-compliance: PLAN: Plan This 63-year-old gentleman admitted with shortness of breath for 3 to 4 days, increased cough/sputum production suggestive of COPD exacerbation. On 6 L of home oxygen 1. Acute exacerbation of COPD in the setting of ongoing tobacco abuse - Admit to general medical floor. Patient recently on multiple courses of antibiotic including last August admission completed Augmentin. Patient not having any fever or chills and x-ray not suggestive of any acute infiltrate therefore will discontinue IV antibiotic. Patient is being managed on scheduled bronchodilator, IV Solu-Medrol, Mucinex, incentive spirometry and Pep. Patient is stated he quit smoking 2 months ago. Tobacco cessation strongly encouraged with nicotine patch offered to control cravings. 2. Chronic hypoxic respiratory failure: Oxygen pulse oximetry shows that patient in ED was on 4 to 6 L of oxygen therefore chronic hypoxic respiratory failure. Aggressive incentive spirometry. 3. Recent history of aspiration pneumonia with chronic dysphagia multiple recurrent hospital last 1 from August 29, 2023 to September 02, 2023; s/p PEG-tube and a chronic history of avoiding medical attention with medical noncompliance: Relay Man consulted. Patient is stated he is still eating every day and he cannot swallow any food although this likely told to be n.p.o. 4. Generalized weakness with ambulatory dysfunction arising from #1 to #3 - PT/OT case management consult and treat at this patient will likely require ECF placement due to his inability to care for himself at home with help appreciated in advance. 5. Essential hypertension - Resume home regimen plus give as needed hydralazine for systolic blood pressure greater than 160 mmHg. 6. History of NSTEMI-II due to AE COPD and Influenza A (07/2023) - 7. DVT prophylaxis - Lovenox 40 mg sq daily. T Charges/Coding Visit Charges Inpatient E&M: 35152 Subs Hosp L2
[2023-09-17] MEDS: MethylPREDNISolone 125 MG/2 ML Vial 60 MG IV ×2 (09:18→21:34)
[2023-09-17] MEDS: Magnesium Chloride 64 MG Delay Rel.Tablet 128 MG PO (09:18)
[2023-09-17] MEDS: Enoxaparin 40 MG/0.4 ML Syringe SC (09:18)
[2023-09-17] MEDS: Carvedilol 6.25 MG Tablet GT ×2 (09:19→17:07)
[2023-09-17] MEDS: Lansoprazole 15 MG Capsule.DR 30 MG GT ×2 (09:19→21:28)
--- NOTE | 2023-09-17 10:52 | CASEMGMT ---
Finish Off Operator told SW that patient stated he has a court hearing today and needs someone to send a letter to the court telling them patient is here. LONI called [employer] of Courts to see who patient's accounting machine servicer is and who SW should send the letter to. LONI was informed that patient's court hearing was 4-17 and there is a warrant out for patient's arrest. SW notified patient. Estelita MCKINNON
--- NOTE | 2023-09-17 12:30 | CASEMGMT ---
RN CM Face to Face with patient for initial transition planning/care coordination assessment. RN CM introduced self and role at [facility]. Patient lying in bed, alert and oriented. Patient willing to participate in assessment and is able to answer all questions appropriately. Care providers, pharmacy, and demographics verified. PCP: Andre ANGUIANO Specialists: none Preferred Pharmacy: [facility] Insurance: Darryn [facility] Prescription Benefit: yes Living Will/HPOA: yes but states wants to change POA to [place] LONI Wilson notified LNOK: friend Living Arrangements: Patient lives alone in a single story home with 6 steps and railing to enter the home. Patient states he is independent at home but has not been bathing as he does not have the engery to complete tasks. Transportation: friend DME/HHC: Patient has raised toilet, walker, pulse ox and oxygen through [facility] at 6lpm with portability but tanks are empty. No previous HHC or SNF. Patient has been to [facility] in the past and was just discharged to [facility] on 09/02/23 during last admission. Patient states the he left because [facility] was disrespectful and they did not setup his medications or tubefeed. Patient left AMA from [facility] on 09/06/23. Patient wishes to discharge home and would like HHC, nebulizer, and tubefeeds setup for him. CM to assist patient with discharge planning and facilitate setup of equipment and HHC Patient states he has no further needs or concerns at this time. CM to follow for discharge planning needs that may arise. Disposition Plan: Patient to discharge home with HHC, family support, and follow-up plans in place. Hannah HERNANDEZ, RN, CM
--- NOTE | 2023-09-17 15:00 | CASEMGMT ---
RN SKYLAR received visit from Hilario at [facility] regarding NIV setup that she was working on as outpatient. Prefilled script received from Hilario to have hospitalist sign. CM to updated hospitalist and asssist with setup at discharge.
[2023-09-17] MEDS: Glycerin/Hypromellose/PEG400 15 ml Bottle 2 DRP EACH EYE (17:13)
[2023-09-17] MEDS: MELATONIN 10 MG TABLET 5 MG GT (21:28)
[2023-09-18] VITALS (8 sets, daily range): BP systolic 123–140; BP diastolic 84–94; PULSE 68–85; RESP 16–20; TEMP 36.4–36.8; O2SAT 91–98; BMI 18.3
[2023-09-18] MEDS: Jevity 1.5. 1,000 ML Bottle 240 ML GT ×6 (04:20→20:23)
[2023-09-18] MEDS: Metoclopramide 10 MG Tablet GT ×3 (04:20→20:22)
[2023-09-18 07:02] LABS: Absolute Neutrophil Count 22.9 X10^3/uL (2.0-7.7); Basophil# 0.04 X10^3/uL; Basophil% 0.2 % (0-1); Hematocrit 29.8 % (40-54); Hemoglobin 9.9 g/dL (13.0-16.5); Lymphocyte % 1.3 % (19-41); Mean Corp Hgb Conc 33.2 g/dL (32-36); Mean Corpuscular Hgb 32.5 pg (27.0-32.0); Mean Corpuscular Volume 97.7 fL (80-94); Mean Platelet Vol. 9.1 fl (6.2-12.0); Monocyte# 0.27 X10^3/uL; Monocyte% 1.1 % (0-10); NRBC Flagged by Analyzer 0 % (0-5); Neutrophil # 22.88 X10^3/uL (2.7-7.7); Neutrophil % 96.8 % (47-70); POSITIVE DIFFERENTIAL YES; Platelet Count 417 K/mm3 (150-450); RBC Distribution Width CV 14.6 % (11.6-14.6); RBC Distribution Width SD 52.5 fl (35.1-43.9); Red Blood Count 3.05 M/mm3 (4.6-6.2); White Blood Count 23.6 K/mm3 (4.4-11.0)
[2023-09-18 07:18] LABS: Differential Indicated SCAN CRITERIA MET
[2023-09-18] MEDS: Ipratropium/Albuterol Sulfate 3 ML AMPUL.NEB INHALATION ×4 (07:18→19:15)
[2023-09-18 07:38] LABS: Anion Gap 4 (5-15); BUN 20 mg/dL (7-18); BUN/Creat Ratio 30.1 RATIO (10-20); Calcium,Total 8.5 mg/dL (8.5-10.1); Chloride 96 mmol/L (98-107); Creatinine, Serum 0.66 mg/dL (0.70-1.30); EST Glomerular Filtration Rate 128 mL/min (>60); Est Glom Filt Rate - Afr Amer 155 mL/min (>60); Estimated Creatinine Clearance 84.64 ml/min; Glucose 258 mg/dL (74-106); Potassium 3.9 mmol/L (3.5-5.1); Sodium Level 132 mmol/L (136-145)
[2023-09-18] MEDS: Enoxaparin 40 MG/0.4 ML Syringe SC (08:37)
[2023-09-18] MEDS: Magnesium Chloride 64 MG Delay Rel.Tablet 128 MG PO (08:38)
[2023-09-18] MEDS: MethylPREDNISolone 125 MG/2 ML Vial 60 MG IV ×2 (08:38→20:22)
[2023-09-18] MEDS: Multivitamin/Minerals/Iron (9 mg/15 ml) Liquid GT (08:38)
[2023-09-18] MEDS: Carvedilol 6.25 MG Tablet GT ×2 (08:38→17:27)
[2023-09-18] MEDS: Lansoprazole 15 MG Capsule.DR 30 MG GT ×2 (08:38→20:23)
--- NOTE | 2023-09-18 09:13 | PCM.TXEXTCAR ---
Diet Diet Order/Speech Therapy: 09/17/23 00:05 Diet: Nothing Per Oral Is pt able to select menu?: No Diet Comments: Patient can only have his Jevity tube feed. Wound(s) Left arm: Wound Type: Abrasion Problem/Diagnosis (1) COPD exacerbation: Status: Chronic Code(s): J44.1 - Chronic obstructive pulmonary disease with (acute) exacerbation (2) Tobacco use: Status: Acute Code(s): Z72.0 - Tobacco use (3) Respiratory insufficiency: Status: Acute Code(s): R06.89 - Other abnormalities of breathing (4) Generalized weakness: Status: Acute Code(s): R53.1 - Weakness (5) Medical non-compliance: Status: Acute Code(s): Z91.199 - Patient's noncompliance with other medical treatment and regimen due to unspecified reason Plan This 63-year-old gentleman admitted with shortness of breath for 3 to 4 days, increased cough/sputum production suggestive of COPD exacerbation. On 6 L of home oxygen 1. Acute exacerbation of COPD in the setting of ongoing tobacco abuse - Admit to general medical floor. Patient recently on multiple courses of antibiotic including last August admission completed Augmentin. Patient not having any fever or chills and x-ray not suggestive of any acute infiltrate therefore will discontinue IV antibiotic. Patient is being managed on scheduled bronchodilator, IV Solu-Medrol, Mucinex, incentive spirometry and Pep. Patient is stated he quit smoking 2 months ago. Tobacco cessation strongly encouraged with nicotine patch offered to control cravings. 2. Chronic hypoxic respiratory failure: Oxygen pulse oximetry shows that patient in ED was on 4 to 6 L of oxygen therefore chronic hypoxic respiratory failure. Aggressive incentive spirometry. 3. Recent history of aspiration pneumonia with chronic dysphagia multiple recurrent hospital last 1 from August 29, 2023 to September 02, 2023; s/p PEG-tube and a chronic history of avoiding medical attention with medical noncompliance: Senior Procurement Specialist consulted. Patient is stated he is still eating every day and he cannot swallow any food although this likely told to be n.p.o. 4. Generalized weakness with ambulatory dysfunction arising from #1 to #3 - PT/OT case management consult and treat at this patient will likely require ECF placement due to his inability to care for himself at home with help appreciated in advance. 5. Essential hypertension - Resume home regimen plus give as needed hydralazine for systolic blood pressure greater than 160 mmHg. 6. History of NSTEMI-II due to AE COPD and Influenza A (07/2023) - 7. DVT prophylaxis - Lovenox 40 mg sq daily. T Allergies/Procedures Done in Hospital Allergies No Known Allergies Allergy (Verified 08/13/23 21:05) Dietary and Speech Recommendations Dietitian Recommendations/Changes: Pt will remain NPO. Recommend Jevity 1.5 240mL bolus via PEG 6x daily with 80mL feeding tube flush before and after each bolus to meet estimated nutrition needs. Discharge Plan Admission Admit Date/Time: 09/16/23 22:52 Attending Provider: Jluis Bliss Primary Care Provider: Cha Powell Consulting Providers: Tavares [place] Discharge Orders/Prescriptions Prescriptions: No Action ipratropium-albuterol 0.5 mg-3 mg(2.5 mg base)/3 mL Solution For Nebulization 3 ml inhalation Q4HWA.RT Qty: 0 0RF albuterol sulfate 2.5 mg /3 mL (0.083 %) Solution For Nebulization 2.5 mg inhalation Q2H PRN PRN (Reason: Dyspnea, wheezing) Qty: 0 0RF Therapeutic-M 9 mg iron-400 mcg Tablet 1 tab feeding tube BREAKFAST Qty: 0 0RF Jevity 1.5 Jason 0.06 gram-1.5 kcal/mL Liquid 240 ml G-tube 6X/DAY Qty: 0 0RF metoclopramide HCl [Reglan] 10 mg tablet 10 mg feeding tube Q8 Qty: 1 0RF guaifenesin [Expectorant] 200 mg tablet 600 mg PO BID Rx Instructions: stop day 09/03/23 magnesium oxide 400 mg magnesium capsule 400 mg feeding tube DAILY melatonin 5 mg capsule 5 mg feeding tube DAILY acetaminophen 325 mg Tablet 650 mg feeding tube Q4H PRN PRN (Reason: Fever, pain -03/05) carvedilol 6.25 mg Tablet 6.25 mg feeding tube BIDCM prednisone 20 mg Tablet 40 mg G-tube BREAKFAST Qty: 0 0RF Rx Instructions: 40 mg through G-tube for 3 days starting 09/02/2023, then 20 mg daily through G-tube x 5 days thereafter and then stop lansoprazole 15 mg Capsule,Delayed Release(Dr/Ec) 30 mg G-tube BID Qty: 0 0RF amoxicillin-pot clavulanate 400-57 mg/5 mL suspension for reconstitution 10 ml feeding tube BID Qty: 100 0RF Rx Instructions: Administer for 5 days starting 08/27/2023 then discontinue fluconazole 40 mg/mL Suspension For Reconstitution 200 mg G-tube DAILY Qty: 0 0RF Rx Instructions: Administer for 7 days starting 09/02/2023 then discontinue Referrals / Follow Up: Cha Powell PA [Primary Care Provider] -
--- NOTE | 2023-09-18 11:00 | CASEMGMT ---
RN CM in to discuss plans at discharge with patient. Patient states he would like to go home with C. A list of C providers including quality and resource use data and consistent with the patient?s preferred geographical region, medical needs, and insurance network were provided from the [facility] Guide. Patient to review list and provide preferences. CM will continue to follow this patient and plan for a safe discharge.
--- NOTE | 2023-09-18 11:58 | CASEMGMT ---
RN SKYLAR notified LONI that patient would like to change his Healthcare Power of Leaf Stripper to his friend Salinas Wilson. LONI called Salinas Wilson to check with him to see if he is okay with being patient's Healthcare Power of Leaf Stripper. Sal[place] said he is in agreement with this. This LONI and LONI Aguilera met with patient. Introduced selves and role at [facility]. LONI asked patient if he was interested in re-doing his Healthcare Power of Leaf Stripper. Patient stated he is going to leave it as is for now. LONI called Salinas Wilson and left him a voice mail letting him know patient chose to leave his Healthcare Power of Leaf Stripper the way it is. Estelita Ferrari PHYSICIST [employer]
--- NOTE | 2023-09-18 15:53 | PN.HOSP_ITS ---
Reason for Visit Reason for Visit: Diagnoses Chronic obstructive pulmonary disease with (acute) exacerbation (09/16/23) Other abnormalities of breathing (09/16/23) Weakness (09/16/23) Tobacco use (09/16/23) Patient's noncompliance with other medical treatment and regimen due to unspecified reason (09/16/23) Objective Data Objective Data Vital Signs: Vital Signs Temp Pulse Resp BP Pulse Ox O2 Del Method O2 Flow Rate 97.5 F L 84 16 133/84 H 93 Nasal Cannula 5 09/18/23 14:00 09/18/23 14:00 09/18/23 14:00 09/18/23 14:00 09/18/23 14:00 09/18/23 14:00 09/18/23 14:00 Oxygen Flow Rate (L/min) 5 Oxygen Delivery Method Nasal Cannula Weight: 143 lb 4.807 oz Body Mass Index (BMI) 18.3 Intake & Output: Intake and Output for Last 24 Hours 09/16/23 09/17/23 09/18/23 23:59 23:59 23:59 Intake Total 112 / 112 3606.04 / 3606.04 400 / 400 Output Total 800 / 800 Balance 112 / 112 2806.04 / 2806.04 400 / 400 Medical Nutrition Assessment Dietitian: Malnutrition Criteria Met Start: 09/17/23 11:20 Freq: Status: Active Protocol: Document 09/17/23 11:20 LO (Rec: 09/17/23 11:20 LO [id number]) Nutrition Malnutrition Evidence of Malnutrition Exists Yes Malnutrition (severe): Chronic Evidenced By Weight Loss (Severe),Physical Changes (Severe) Clinical Problem Chronic Disease or Condition Related Malnutrition Etiology severe related to physiological changes limiting oral intakes Signs/Symptoms as evidenced by 15.9lbs (10.9% ) weight loss in 3 months and temporal and orbital fat/ muscle loss Status Active Problem Recommendation Dietitian Recommendations/Changes Pt will remain NPO. Recommend Jevity 1.5 240mL bolus via PEG 6x daily with 80mL feeding tube flush before and after each bolus to meet estimated nutrition needs. Lab / Micro Data 09/18/23 06:05 09/18/23 06:05 Labs: Laboratory Results - last 24 hr 09/18/23 06:05: WBC 23.6 H, RBC 3.05 L, Hgb 9.9 L, Hct 29.8 L, MCV 97.7 H, MCH 32.5 H, MCHC 33.2, RDW Std Deviation 52.5 H, RDW Coeff of Tony 14.6, Plt Count 417, MPV 9.1, Immature Gran % (Auto) 0.600, Neut % (Auto) 96.8 H, Lymph % (Auto) 1.3 L, [place] % (Auto) 1.1, Eos % (Auto) 0.0, Baso % (Auto) 0.2, Absolute Neuts (auto) 22.9 H, Absolute Lymphs (auto) 0.30 L, Nucleated RBC % 0, Differential Comment COMMENT, Sodium 132 L, Potassium 3.9, Chloride 96 L, Carbon Dioxide 32.0, Anion Gap 4 L, BUN 20 H, Creatinine 0.66 L, Estim Creat Clear Calc 84.64, Est GFR (MDRD) Af Amer 155, Est GFR (MDRD) Non-Af 128, BUN/Creatinine Ratio 30.1 H, Glucose 258 H, Calcium 8.5 Micro: Microbiology 09/16/23 20:40 Mucosa - Nose SARS-CoV-2, Influenza & RSV (PCR) - Final Physical Exam Narrative Seen and examined. Patient admitted for COPD exacerbation, shortness of breath worse for 3 to 4 days. ON 5 L of oxygen. History of tongue/throat cancer. Has PEG tube. During last admission between 08/28/2023 to 09/02/2023 patient was admitted for aspiration pneumonia and was told to strictly NPO. Nonadherent Physical exam General: Alert, Oriented x3, Cooperative HEENT: Atraumatic, PERRLA, EOMI, Normocephalic Oral: No Gingival or Mucosal Lesions/ Ulcerations. Oral mucosa dry Neck: Supple, No JVD, Negative Carotid Bruits Chest wall/Lungs: Air entry severely diminished in bilateral lung bases. No crepitation/rhonchi Cardiovascular: Regular rate, Regular Rhythm, Normal S1, Normal S2, No M/G/R Abdomen: Bowel Sounds Present, Soft, Non Tender, Non-Distended : No dysuria. No renal angle tenderness. No suprapubic tenderness. Extremities: No edema, Capillary Refill Less than 3 Seconds Skin: No rashes, No breakdown Musculoskeletal: No Tenderness to Palpation of Joints or Extremities Neurological: Cranial nerves II-XII grossly intact, DTR 2+/4. No acute focal neurological deficit. Psych/Mental Status: Flat affect. HEENT normocephalic, head/scalp atraumatic, hearing grossly normal bilaterally and moist oral mucous membranes Eyes PERRL and EOMs intact bilaterally Neck no lymphadenopathy and supple Resp no retractions and no use of accessory muscles Resp Narrative: Coarse breath sounds with rhonchi throughout left lung and right middle lobe. Auscultation: rhonchi Cardio regular rate and regular rhythm GI normal to inspection, nondistended, normoactive bowel sounds, soft to palpation, non-tender and non-distended GI Narrative: PEG tube in place. Extremity normal to inspection and full ROM Skin Skin Narrative: Patient has no evidence of rash at this time. Neuro oriented x3, CN's II-XII intact bilaterally, moves all extremities and no focal motor deficits Sensorium / Orientation: awake, alert, oriented to person, oriented to place and oriented to time Speech: speech normal Psych affect normal Assessment & Plan Assessment/Plan (1) COPD exacerbation: (2) Tobacco use: (3) Respiratory insufficiency: (4) Generalized weakness: (5) Medical non-compliance: PLAN: Plan This 63-year-old gentleman admitted with shortness of breath for 3 to 4 days, increased cough/sputum production suggestive of COPD exacerbation. On 6 L of home oxygen 1. Acute exacerbation of COPD in the setting of ongoing tobacco abuse - Admit to general medical floor. Patient recently on multiple courses of antibiotic including last August admission completed Augmentin. Patient not having any fever or chills and x-ray not suggestive of any acute infiltrate therefore will discontinue IV antibiotic. Patient is being managed on scheduled br onchodilator, IV Solu-Medrol, Mucinex, incentive spirometry and Pep. Patient is stated he quit smoking 2 months ago. Tobacco cessation strongly encouraged with nicotine patch offered to control cravings. 09/17: Patient feels improvement in wheezing and shortness of breath 2. Chronic hypoxic respiratory failure consequent to COPD: Oxygen pulse oximetry shows that patient in ED was on 4 to 6 L of oxygen therefore chronic hypoxic respiratory failure. Aggressive incentive spirometry. 09/17: Patient requires volume ventilation. All other therapies including bilevel have been considered and ruled out. Due to the severity of patient's condition, weak breathing muscles and life-threatening CO2 retention patient needs to wear ventilation every night via facemask and during the day as needed. 3. Recent history of aspiration pneumonia with chronic dysphagia multiple recurrent hospital last 1 from August 29, 2023 to September 02, 2023; s/p PEG-tube and a chronic history of avoiding medical attention with medical noncompliance: Garment Sewing Machine Operator consulted. Patient is stated he is still eating every day and he cannot swallow any food although this likely told to be n.p.o. 4. Generalized weakness with ambulatory dysfunction arising from #1 to #3 - PT/OT case management consult and treat at this patient will likely require ECF placement due to his inability to care for himself at home with help appreciated in advance. 5. Essential hypertension - Resume home regimen plus give as needed hydralazine for systolic blood pressure greater than 160 mmHg. 6. History of NSTEMI-II due to AE COPD and Influenza A (07/2023) - 7. DVT prophylaxis - Lovenox 40 mg sq daily. Charges/Coding Visit Charges Inpatient E&M: 85389 Subs Hosp L2
--- NOTE | 2023-09-18 16:03 | CASEMGMT ---
SW spoke with patient about PASSPORT services and he was interested. SW made a referral online to [facility]. Estelita Ferrari NUCLEAR WASTE MANAGEMENT ENGINEER [employer]
--- NOTE | 2023-09-18 16:04 | CASEMGMT ---
TORIN CHENG in to discuss preferences for HHC with patient. Patient prefers the following C agencies: 1. [facility] 2. [facility] 3.[facility] 4. [facility] 5. [facility]. TORIN CHENG discussed additional needs at discharge including NIV setup, tubefeeds, nebulizer, and portable tank at discharge. Patient voiced understanding and had no further questions or concerns. TORIN CHENG script for tubefeeds and sent to [place] with request for estimated delivery. TORIN CHENG also received script for NIV and referral faxed to [facility]. TORIN CHENG called and made referral to [facility], awaiting acceptance. CM will continue to follow this patient and plan for a safe discharge.
[2023-09-18] MEDS: MELATONIN 10 MG TABLET 5 MG GT (20:22)
[2023-09-19 02:00] VITALS: BP 133/92; PULSE 77; RESP 16; TEMP 36.6; O2SAT 96
[2023-09-19 03:27] VITALS: BMI 18.1
[2023-09-19] MEDS: Jevity 1.5. 1,000 ML Bottle 240 ML GT ×4 (05:17→15:20)
[2023-09-19] MEDS: Metoclopramide 10 MG Tablet GT ×2 (05:18→15:20)
[2023-09-19 07:21] VITALS: PULSE 78; RESP 20; O2SAT 95
[2023-09-19] MEDS: Ipratropium/Albuterol Sulfate 3 ML AMPUL.NEB INHALATION ×3 (07:21→15:06)
[2023-09-19 07:30] LABS: Absolute Lymphocyte Count 0.28 X10^3/uL (0.83-4.51); Absolute Neutrophil Count 22.5 X10^3/uL (2.0-7.7); Basophil# 0.03 X10^3/uL; Basophil% 0.1 % (0-1); Hemoglobin 10.7 g/dL (13.0-16.5); Lymphocyte # 0.28 X10^3/ul (0.83-4.51); Lymphocyte % 1.2 % (19-41); Mean Corp Hgb Conc 33.4 g/dL (32-36); Mean Corpuscular Hgb 32.8 pg (27.0-32.0); Mean Corpuscular Volume 98.2 fL (80-94); Mean Platelet Vol. 9.2 fl (6.2-12.0); Monocyte# 0.44 X10^3/uL; Monocyte% 1.9 % (0-10); NRBC Flagged by Analyzer 0 % (0-5); Neutrophil # 22.51 X10^3/uL (2.7-7.7); Neutrophil % 96.2 % (47-70); POSITIVE DIFFERENTIAL YES; Platelet Count 405 K/mm3 (150-450); RBC Distribution Width CV 14.8 % (11.6-14.6); RBC Distribution Width SD 53.9 fl (35.1-43.9); Red Blood Count 3.26 M/mm3 (4.6-6.2); White Blood Count 23.4 K/mm3 (4.4-11.0)
[2023-09-19 07:38] LABS: Differential Indicated SCAN CRITERIA MET
[2023-09-19 08:04] LABS: Anion Gap 6 (5-15); BUN 23 mg/dL (7-18); BUN/Creat Ratio 33.9 RATIO (10-20); Chloride 95 mmol/L (98-107); Creatinine, Serum 0.68 mg/dL (0.70-1.30); EST Glomerular Filtration Rate 125 mL/min (>60); Est Glom Filt Rate - Afr Amer 151 mL/min (>60); Estimated Creatinine Clearance 83.59 ml/min; Glucose 218 mg/dL (74-106); Potassium 4.1 mmol/L (3.5-5.1); Sodium Level 132 mmol/L (136-145)
[2023-09-19 09:53] LABS: Differential Comment SCANNED
[2023-09-19 10:08] VITALS: BP 159/96; PULSE 88; RESP 18; TEMP 36.1; O2SAT 96
[2023-09-19] MEDS: Glycerin/Hypromellose/PEG400 15 ml Bottle 2 DRP EACH EYE (10:11)
[2023-09-19] MEDS: Enoxaparin 40 MG/0.4 ML Syringe SC (10:11)
[2023-09-19] MEDS: Lansoprazole 15 MG Capsule.DR 30 MG GT (10:12)
[2023-09-19] MEDS: Carvedilol 6.25 MG Tablet GT ×2 (10:12→16:38)
[2023-09-19] MEDS: Magnesium Chloride 64 MG Delay Rel.Tablet 128 MG PO (10:12)
[2023-09-19] MEDS: Multivitamin/Minerals/Iron (9 mg/15 ml) Liquid GT (10:12)
[2023-09-19] MEDS: MethylPREDNISolone 125 MG/2 ML Vial 60 MG IV (10:13)
--- NOTE | 2023-09-19 10:49 | CASEMGMT ---
Addendum entered by Hannah Pizano 09/19/23 13:47: [facility] is not in in-network with insurance. TORIN CHENG received call back from Aj from [facility] [place] that NIV was approved and will deliver NIV, nebulizer, and portable tank to patient's room. Per Hilario, [facility] [place] is able to supple tube feeds but is forwarded to another office. TORIN CHENG sent tubefeed referral to [facility] [place] and Hilario states she will expedite referral and call with estimated delivery. RN CM called and left message with [facility] to confirm acceptance. RN CM updated patient regarding progress of DME, tubefeeds, and HHC. Patient voiced appreciation. CM will continue to follow this patient and plan for a safe discharge. Addendum entered by Hannah Pizano 09/19/23 13:22: TORIN CHENG received call back from [facility] and they are not in network with patient's insurance and suggested [facility]. TORIN CHENG faxed referral to [facility] for tubefeeds, awaiting call back. Original Note: TORIN CHENG received message from [facility] requesting update to clinical documentation. Updated clinicals sent to [facility]. TORIN CHENG called [facility] to confirm when NIV could be setup. Per Hilario, if approved today, NIV could be setup this afternoon. RN SKYLAR requested portable tank for at discharge. RN SKYLAR called [facility] regarding tube feed referral. Per [facility] they are waiting for insurance approval and will follow-up with estimated time of delivery. RN SKYLAR received call back from [facility] and they are considering patient and will follow-up. CM will continue to follow this patient and plan for a safe discharge.
[2023-09-19 11:06] VITALS: PULSE 82; RESP 20
--- NOTE | 2023-09-19 11:34 | CASEMGMT ---
LONI received a voice mail from patient's friend Salinas asking if patient was being discharged today. LONI called Salinas back and left him a voice mail letting him know that it is possible patient may be discharged today. However, this depends on if everything can be set up for home today. LONI will let him know. Estelita Ferrari MSW [facility]
--- NOTE | 2023-09-19 14:07 | PN.HOSP_ITS ---
Reason for Visit Reason for Visit: Diagnoses Chronic obstructive pulmonary disease with (acute) exacerbation (09/16/23) Other abnormalities of breathing (09/16/23) Weakness (09/16/23) Tobacco use (09/16/23) Patient's noncompliance with other medical treatment and regimen due to unspecified reason (09/16/23) Objective Data Objective Data Vital Signs: Vital Signs Temp Pulse Resp BP Pulse Ox O2 Del Method O2 Flow Rate 97.0 F L 82 20 H 159/96 H 96 Nasal Cannula 5 09/19/23 10:08 09/19/23 11:06 09/19/23 11:06 09/19/23 10:08 09/19/23 10:08 09/19/23 10:08 09/19/23 11:52 Oxygen Flow Rate (L/min) 5 Oxygen Delivery Method Nasal Cannula Weight: 141 lb 8.588 oz Body Mass Index (BMI) 18.1 Intake & Output: Intake and Output for Last 24 Hours 09/17/23 09/18/23 09/19/23 23:59 23:59 23:59 Intake Total 3606.04 / 3606.04 2340 / 2340 740 / 740 Output Total 800 / 800 550 / 1300 1450 / 1450 Balance 2806.04 / 2806.04 1790 / 1040 -710 / -710 Medical Nutrition Assessment Dietitian: Malnutrition Criteria Met Start: 09/17/23 11:20 Freq: Status: Active Protocol: Document 09/17/23 11:20 LO (Rec: 09/17/23 11:20 LO [id number]) Nutrition Malnutrition Evidence of Malnutrition Exists Yes Malnutrition (severe): Chronic Evidenced By Weight Loss (Severe),Physical Changes (Severe) Clinical Problem Chronic Disease or Condition Related Malnutrition Etiology severe related to physiological changes limiting oral intakes Signs/Symptoms as evidenced by 15.9lbs (10.9% ) weight loss in 3 months and temporal and orbital fat/ muscle loss Status Active Problem Recommendation Dietitian Recommendations/Changes Pt will remain NPO. Recommend Jevity 1.5 240mL bolus via PEG 6x daily with 80mL feeding tube flush before and after each bolus to meet estimated nutrition needs. Lab / Micro Data 09/19/23 07:00 09/19/23 07:00 Labs: Laboratory Results - last 24 hr 09/19/23 07:00: WBC 23.4 H, RBC 3.26 L, Hgb 10.7 L, Hct 32.0 L, MCV 98.2 H, MCH 32.8 H, MCHC 33.4, RDW Std Deviation 53.9 H, RDW Coeff of Tony 14.8 H, Plt Count 405, MPV 9.2, Immature Gran % (Auto) 0.600, Neut % (Auto) 96.2 H, Lymph % (Auto) 1.2 L, [place] % (Auto) 1.9, Eos % (Auto) 0.0, Baso % (Auto) 0.1, Absolute Neuts (auto) 22.5 H, Absolute Lymphs (auto) 0.28 L, Nucleated RBC % 0, Differential Comment SCANNED, Sodium 132 L, Potassium 4.1, Chloride 95 L, Carbon Dioxide 31.0, Anion Gap 6, BUN 23 H, Creatinine 0.68 L, Estim Creat Clear Calc 83.59, Est GFR (MDRD) Af Amer 151, Est GFR (MDRD) Non-Af 125, BUN/Creatinine Ratio 33.9 H, Glucose 218 H, Calcium 9.0 Micro: Microbiology 09/16/23 20:40 Mucosa - Nose SARS-CoV-2, Influenza & RSV (PCR) - Final Physical Exam Narrative Seen and examined. Shortness of breath is better. On walking patient still gets mild short of breath. On 5 L of oxygen. Patient admitted for COPD exacerbation, shortness of breath worse for 3 to 4 days. History of tongue/throat cancer. Has PEG tube. During last admission between 08/28/2023 to 09/02/2023 patient was admitted for aspiration pneumonia and was told to strictly NPO. Nonadherent Physical exam General: Alert, Oriented x3, Cooperative HEENT: Atraumatic, PERRLA, EOMI, Normocephalic Oral: No Gingival or Mucosal Lesions/ Ulcerations. Oral mucosa dry Neck: Supple, No JVD, Negative Carotid Bruits Chest wall/Lungs: Air entry diminished in bilateral lung bases, improving. No crepitation/rhonchi Cardiovascular: Regular rate, Regular Rhythm, Normal S1, Normal S2, No M/G/R Abdomen: Bowel Sounds Present, Soft, Non Tender, Non-Distended : No dysuria. No renal angle tenderness. No suprapubic tenderness. Extremities: No edema, Capillary Refill Less than 3 Seconds Skin: No rashes, No breakdown Musculoskeletal: No Tenderness to Palpation of Joints or Extremities Neurological: Cranial nerves II-XII grossly intact, DTR 2+/4. No acute focal neurological deficit. Psych/Mental Status: Flat affect. Assessment & Plan Assessment/Plan (1) COPD exacerbation: (2) Tobacco use: (3) Respiratory insufficiency: (4) Generalized weakness: (5) Medical non-compliance: PLAN: Plan This 63-year-old gentleman admitted with shortness of breath for 3 to 4 days, increased cough/sputum production suggestive of COPD exacerbation. On 6 L of home oxygen 1. Acute exacerbation of COPD in the setting of ongoing tobacco abuse - Admit to general medical floor. Patient recently on multiple courses of antibiotic including last August admission completed Augmentin. Patient not having any fever or chills and x-ray not suggestive of any acute infiltrate therefore will discontinue IV antibiotic. Patient is being managed on scheduled bronchodilator, IV Solu-Medrol, Mucinex, incentive spirometry and Pep. Patient is stated he quit smoking 2 months ago. Tobacco cessation strongly encouraged with nicotine patch offered to control cravings. 09/17: Patient feels improvement in wheezing and shortness of breath 09/18: Shortness of breath and wheezing has gotten better. Still on 5 L of oxygen. 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 2. Chronic hypoxic respiratory failure consequent to COPD: Oxygen pulse oximetry shows that patient in ED was on 4 to 6 L of oxygen therefore chronic hypoxic respiratory failure. Aggressive incentive spirometry. 09/17: Patient requires volume ventilation. All other therapies including bilevel have been considered and ruled out. Due to the severity of patient's condition, weak breathing muscles and life-threatening CO2 retention patient needs to wear ventilation every night via facemask and during the day as needed. 3. Recent history of aspiration pneumonia with chronic dysphagia multiple recurrent hospital last 1 from August 29, 2023 to September 02, 2023; s/p PEG-tube and a chronic history of avoiding medical attention with medical noncompliance: E Commerce Director consulted. Patient is stated he is still eating every day and he cannot swallow any food although this likely told to be n.p.o. 4. Generalized weakness with ambulatory dysfunction arising from #1 to #3 - PT/OT case management consult and treat at this patient will likely require ECF placement due to his inability to care for himself at home with help appreciated in advance. 5. Essential hypertension - Resume home regimen plus give as needed hydralazine for systolic blood pressure greater than 160 mmHg. 6. History of NSTEMI-II due to AE COPD and Influenza A (07/2023) - 7. DVT prophylaxis - Lovenox 40 mg sq daily. Charges/Coding Visit Charges Inpatient E&M: 12128 Subs Hosp L2
--- NOTE | 2023-09-19 14:59 | DCINST_ITS ---
Discharge Instructions Diet Discharge Diet: - (On tube feed. Strictly NPO.) Activity Discharge Activity: Return to Normal Activity and May Not Drive Weight Bearing Status: Weight bearing as tolerated Dressing / Incision Call your doctor if you observe: Fever of 101 or Higher, Coldness, Increased Pain, Numbness or Tingling, Change in Color, Inability to urinate, Inability to have a bowel movement, Shortness of breath, Dizziness, Fainting spells, Swelling in the ankles, Chest pain, Prolonged hiccupping, Increased palpitations (irregular heartbeat) and Calf discomfort Follow Up Care When: IN 2 WEEKS Test Results: Test results from this visit will be discussed in further detail at your follow- up appointment, if applicable. Discharge Plan Admission Admit Date/Time: 09/16/23 22:52 Primary Reason for Your Visit: COPD exacerbation, end-stage COPD on home oxygen and Trelegy prescribed Attending Provider: Jluis Bliss Primary Care Provider: Cha Powell Consulting Providers: Tavares [place] Discharge Orders/Prescriptions Prescriptions: New nicotine 14 mg/24 hr Patch 24 Hour 14 mg transdermal DAILY Qty: 28 0RF prednisone 10 mg tablet 10 mg feeding tube DAILY Qty: 30 0RF Rx Instructions: 40 mg for 3 days 30 mg for 3 days, 20 mg for 3 days,and 10 mg for 3 days Continued ipratropium-albuterol 0.5 mg-3 mg(2.5 mg base)/3 mL Solution For Nebulization 3 ml inhalation Q4HWA.RT Qty: 0 0RF albuterol sulfate 2.5 mg /3 mL (0.083 %) Solution For Nebulization 2.5 mg inhalation Q2H PRN PRN (Reason: Dyspnea, wheezing) Qty: 0 0RF Therapeutic-M 9 mg iron-400 mcg Tablet 1 tab feeding tube BREAKFAST Qty: 0 0RF Jevity 1.5 Jason 0.06 gram-1.5 kcal/mL Liquid 240 ml G-tube 6X/DAY Qty: 0 0RF metoclopramide HCl [Reglan] 10 mg tablet 10 mg feeding tube Q8 Qty: 1 0RF guaifenesin [Expectorant] 200 mg tablet 600 mg PO BID Rx Instructions: stop day 09/03/23 magnesium oxide 400 mg magnesium capsule 400 mg feeding tube DAILY melatonin 5 mg capsule 5 mg feeding tube DAILY acetaminophen 325 mg Tablet 650 mg feeding tube Q4H PRN PRN (Reason: Fever, pain 1-03/05) carvedilol 6.25 mg Tablet 6.25 mg feeding tube BIDCM lansoprazole 15 mg Capsule,Delayed Release(Dr/Ec) 30 mg G-tube BID Qty: 0 0RF Discontinued prednisone 20 mg Tablet 40 mg G-tube BREAKFAST Qty: 0 0RF Rx Instructions: 40 mg through G-tube for 3 days starting 09/02/2023, then 20 mg daily through G-tube x 5 days thereafter and then stop amoxicillin-pot clavulanate 400-57 mg/5 mL suspension for reconstitution 10 ml feeding tube BID Qty: 100 0RF Rx Instructions: Administer for 5 days starting 08/27/2023 then discontinue fluconazole 40 mg/mL Suspension For Reconstitution 200 mg G-tube DAILY Qty: 0 0RF Rx Instructions: Administer for 7 days starting 09/02/2023 then discontinue Referrals / Follow Up: Cha Powell PA [Primary Care Provider] - Yann Amaya DO [Med Staff - Active Staff] - Within 1 Month Disposition Disposition (needs filled in before D/C Order can be placed): Home, Self Care
[2023-09-19 15:06] VITALS: PULSE 85; RESP 20
--- NOTE | 2023-09-19 15:07 | DS.PCM_ITS ---
Providers Date of Admission: 09/16/23 Date of Discharge: 09/19/23 Primary Care Physician: SILVIO Mejias Reason For Visit: ACUTE EXACERBATION OF COPD, ONGOING TOBACCO ABUSE Diagnosis Discharge Diagnosis (1) COPD exacerbation: Status: Chronic Code(s): J44.1 - Chronic obstructive pulmonary disease with (acute) exacerbation (2) Tobacco use: Status: Acute Code(s): Z72.0 - Tobacco use (3) Respiratory insufficiency: Status: Acute Code(s): R06.89 - Other abnormalities of breathing (4) Generalized weakness: Status: Acute Code(s): R53.1 - Weakness (5) Medical non-compliance: Status: Acute Code(s): Z91.199 - Patient's noncompliance with other medical treatment and regimen due to unspecified reason Plan This 63-year-old gentleman admitted with shortness of breath for 3 to 4 days, increased cough/sputum production suggestive of COPD exacerbation. On 6 L of home oxygen 1. Acute exacerbation of COPD in the setting of ongoing tobacco abuse - Admit to general medical floor. Patient recently on multiple courses of antibiotic including last August admission completed Augmentin. Patient not having any fever or chills and x-ray not suggestive of any acute infiltrate therefore will discontinue IV antibiotic. Patient is being managed on scheduled broncho dilator, IV Solu-Medrol, Mucinex, incentive spirometry and Pep. Patient is stated he quit smoking 2 months ago. Tobacco cessation strongly encouraged with nicotine patch offered to control cravings. 09/17: Patient feels improvement in wheezing and shortness of breath 09/18: Shortness of breath and wheezing has gotten better. Still on 5 L of oxygen. Patient on his baseline no home oxygen requirement. manager fashion able to get trilogy ventilator. I talked to the patient and advised to be adherent to Trelegy, home inhalers and prednisone as prescribed to prevent readmission. Patient AFFIRMED understanding. Prescription for nicotine patch and tapering dose of prednisone given. Patient was also told to be strictly n.p.o. to prevent future episodes of aspiration/aspiration pneumonia. 2. Chronic hypoxic respiratory failure consequent to COPD: Oxygen pulse oximetry shows that patient in ED was on 4 to 6 L of oxygen therefore chronic hypoxic respiratory failure. Aggressive incentive spirometry. 09/17: Patient requires volume ventilator. All other therapies including bilevel have been considered and ruled out. Due to the severity of patient's condition, weak breathing muscles and life-threatening CO2 retention patient needs to wear ventilation every night via facemask and during the day as needed. 3. Recent history of aspiration pneumonia with chronic dysphagia multiple r [facility] hospital last 1 from August 29, 2023 to September 02, 2023; s/p PEG-tube and a chronic history of avoiding medical attention with medical noncompliance: Packaging Mechanic consulted. Patient is stated he is still eating every day and he cannot swallow any food although this likely told to be n.p.o. 4. Generalized weakness with ambulatory dysfunction arising from #1 to #3 - PT/OT case management consult and treat at this patient will likely require ECF placement due to his inability to care for himself at home with help appreciated in advance. 5. Essential hypertension - Resume home regimen plus give as needed hydralazine for systolic blood pressure greater than 160 mmHg. 6. History of NSTEMI-II due to AE COPD and Influenza A (07/2023) - 7. DVT prophylaxis - Lovenox 40 mg sq daily. Discharge medication reconciliation done. Discharge follow-up instructions completed. Discharge process discussed with the patient and all questions were answered to patient's satisfaction. Follow with PCP in 1 to 2 weeks Total time spent, exact 35 minutes on discharge meds reconciliation, exami nation, coordination of care with nurses and ancillary staff, review of imaging and blood test and discussion with the patient on follow-up instructions. Medications at Discharge Home Medications albuterol sulfate 2.5 mg/3 mL (0.083 %) solution for nebulization 2.5 mg (3 mL) inhalation Q2H PRN PRN Dyspnea, wheezing #0 mL 08/21/23 ipratropium 0.5 mg-albuterol 3 mg (2.5 mg base)/3 mL nebulization soln 3 ml inhalation Q4HWA.RT #0 mL 08/21/23 lactose-reduced food with fiber 0.06 gram-1.5 kcal/mL oral liquid (Jevity 1.5 Jason) 240 ml G-tube 6X/DAY #0 mL 08/21/23 metoclopramide HCl 10 mg tablet (Reglan) 10 mg feeding tube Q8 #1 TAB 08/21/23 multivitamin-iron 9 mg-folic acid 400 mcg-calcium and minerals tablet (Therapeutic-M) 1 tab feeding tube BREAKFAST #0 tabs 08/21/23 acetaminophen 325 mg tablet 650 mg feeding tube Q4H PRN PRN Fever, pain 1-03/0508/28/23 carvedilol 6.25 mg tablet 6.25 mg feeding tube BIDCM 08/28/23 guaifenesin 200 mg tablet (Expectorant) 600 mg PO BID 08/28/23 magnesium oxide 400 mg feeding tube DAILY 08/28/23 melatonin 5 mg capsule 5 mg feeding tube DAILY 08/28/23 lansoprazole 15 mg capsule,delayed release 30 mg (2 x 15 mg) G-tube BID #0 caps 09/02/23 nicotine 14 mg/24 hr daily transdermal patch 14 mg transdermal DAILY #28 ea 09/19/23 prednisone 10 mg tablet 10 mg feeding tube DAILY #30 tabs 09/19/23 Physical Exam Narrative Please see exam finding on progress note the same date. Medical Records Data Medical Nutrition Assessment Dietitian: Malnutrition Criteria Met Start: 09/17/23 11:20 Freq: Status: Active Protocol: Document 09/17/23 11:20 LO (Rec: 09/17/23 11:20 LO [id number]) Nutrition Malnutrition Evidence of Malnutrition Exists Yes Malnutrition (severe): Chronic Evidenced By Weight Loss (Severe),Physical Changes (Severe) Clinical Problem Chronic Disease or Condition Related Malnutrition Etiology severe related to physiological changes limiting oral intakes Signs/Symptoms as evidenced by 15.9lbs (10.9% ) weight loss in 3 months and temporal and orbital fat/ muscle loss Status Active Problem Recommendation Dietitian Recommendations/Changes Pt will remain NPO. Recommend Jevity 1.5 240mL bolus via PEG 6x daily with 80mL feeding tube flush before and after each bolus to meet estimated nutrition needs. Weight / BMI Weight Weight: 141 lb 8.588 oz Body Mass Index (BMI) 18.1 ABG / Lab / Microbiology Data 09/19/23 07:00 09/19/23 07:00 Laboratory: Laboratory Results - last 24 hr 09/19/23 07:00: WBC 23.4 H, RBC 3.26 L, Hgb 10.7 L, Hct 32.0 L, MCV 98.2 H, MCH 32.8 H, MCHC 33.4, RDW Std Deviation 53.9 H, RDW Coeff of Tony 14.8 H, Plt Count 405, MPV 9.2, Immature Gran % (Auto) 0.600, Neut % (Auto) 96.2 H, Lymph % (Auto) 1.2 L, [place] % (Auto) 1.9, Eos % (Auto) 0.0, Baso % (Auto) 0.1, Absolute Neuts (auto) 22.5 H, Absolute Lymphs (auto) 0.28 L, Nucleated RBC % 0, Differential Comment SCANNED, Sodium 132 L, Potassium 4.1, Chloride 95 L, Carbon Dioxide 31.0, Anion Gap 6, BUN 23 H, Creatinine 0.68 L, Estim Creat Clear Calc 83.59, Est GFR (MDRD) Af Amer 151, Est GFR (MDRD) Non-Af 125, BUN/Creatinine Ratio 33.9 H, Glucose 218 H, Calcium 9.0 Microbiology: Microbiology 09/16/23 20:40 Mucosa - Nose SARS-CoV-2, Influenza & RSV (PCR) - Final D/C Instructions Discharge Diet: - (On tube feed. Strictly NPO.) Weight Bearing Status: Weight bearing as tolerated Call your doctor if you observe: Fever of 101 or Higher, Coldness, Increased Pain, Numbness or Tingling, Change in Color, Inability to urinate, Inability to have a bowel movement, Shortness of breath, Dizziness, Fainting spells, Swelling in the ankles, Chest pain, Prolonged hiccupping, Increased palpitations (irregular heartbeat) and Calf discomfort When: IN 2 WEEKS Meaningful Use Info Meaningful Use Meaningful Use Diagnoses (Choose all that apply): None applicable Ischemic Stroke Statin Dosing Therapy Reference: STATIN DOSE THERAPY REFERENCE: * Patients > 75 years receive moderate or high dose statin therapy. * Patients 75 years or YOUNGER should receive HIGH intensity statin dose unless contraindicated. You will be required to document reason for non-treatment if statin daily dose does not meet guidelines. HIGH DOSE STATIN THERAPY DAILY Atorvastatin > than or = to 40 mg Rosuvastatin > than or = to 20 mg Amlodipine + Atorvastatin > than or = to 2.5/40 mg Ezetimibe + Simvastatin 10/80 mg Simvastatin 80mg Discharge Plan Admission Admit Date/Time: 09/16/23 22:52 Primary Reason for Your Visit: COPD exacerbation, end-stage COPD on home oxygen and Trelegy prescribed Attending Provider: Jluis Bliss Primary Care Provider: Cha Powell Consulting Providers: Tavares [place] Discharge Orders/Prescriptions Prescriptions: New nicotine 14 mg/24 hr Patch 24 Hour 14 mg transdermal DAILY Qty: 28 0RF prednisone 10 mg tablet 10 mg feeding tube DAILY Qty: 30 0RF Rx Instructions: 40 mg for 3 days 30 mg for 3 days, 20 mg for 3 days,and 10 mg for 3 days Continued ipratropium-albuterol 0.5 mg-3 mg(2.5 mg base)/3 mL Solution For Nebulization 3 ml inhalation Q4HWA.RT Qty: 0 0RF albuterol sulfate 2.5 mg /3 mL (0.083 %) Solution For Nebulization 2.5 mg inhalation Q2H PRN PRN (Reason: Dyspnea, wheezing) Qty: 0 0RF Therapeutic-M 9 mg iron-400 mcg Tablet 1 tab feeding tube BREAKFAST Qty: 0 0RF Jevity 1.5 Jason 0.06 gram-1.5 kcal/mL Liquid 240 ml G-tube 6X/DAY Qty: 0 0RF metoclopramide HCl [Reglan] 10 mg tablet 10 mg feeding tube Q8 Qty: 1 0RF guaifenesin [Expectorant] 200 mg tablet 600 mg PO BID Rx Instructions: stop day 09/03/23 magnesium oxide 400 mg magnesium capsule 400 mg feeding tube DAILY melatonin 5 mg capsule 5 mg feeding tube DAILY acetaminophen 325 mg Tablet 650 mg feeding tube Q4H PRN PRN (Reason: Fever, pain 1-03/05) carvedilol 6.25 mg Tablet 6.25 mg feeding tube BIDCM lansoprazole 15 mg Capsule,Delayed Release(Dr/Ec) 30 mg G-tube BID Qty: 0 0RF Discontinued prednisone 20 mg Tablet 40 mg G-tube BREAKFAST Qty: 0 0RF Rx Instructions: 40 mg through G-tube for 3 days starting 09/02/2023, then 20 mg daily through G-tube x 5 days thereafter and then stop amoxicillin-pot clavulanate 400-57 mg/5 mL suspension for reconstitution 10 ml feeding tube BID Qty: 100 0RF Rx Instructions: Administer for 5 days starting 08/27/2023 then discontinue fluconazole 40 mg/mL Suspension For Reconstitution 200 mg G-tube DAILY Qty: 0 0RF Rx Instructions: Administer for 7 days starting 09/02/2023 then discontinue Referrals / Follow Up: Yann Amaya DO [Med Staff - Active Staff] - Within 1 Month Cha Powell, PA [Primary Care Provider] - Disposition Disposition (needs filled in before D/C Order can be placed): Home, Self Care Charges/Coding Addendum Addendum: Cancel the billing charge of the progression of the same date. Visit Charges Inpatient E&M: 26966 Disch Hosp >30min
[2023-09-19 15:20] VITALS: BP 153/89; PULSE 80; RESP 18; TEMP 36.1; O2SAT 95
--- NOTE | 2023-09-19 15:30 | CASEMGMT ---
Addendum entered by Hannah Pizano 09/19/23 16:55: TORIN CHENG received approval for 6 bottles of Jevity 1.5 to be sent home with patient. TORIN CHENG provided bottles to patient. TORIN CHENG called [facility] Wilson with patient permission to updated regarding discharge and asked if he could help with transportation for patient. [facility] is out of critical access hospital and unable to assist with transport and provided number for other friend Salinas Eubanks [phone]. TORIN CHENG called and left message to arrange for transportation. [facility] delivered oxygen tank, NIV, and nebulizer. TORIN CHENG will continue to assist with discharge. Original Note: TORIN CHENG called [facility] to inquire about tube feed delivery. Per [employer] should be delivered by Saturday. TORIN CHENG left message with Director requesting 6 bottles of Jevity 1.5 to be sent home with patient till tube feeds can be delivered to patient, awaiting answer. TORIN CHENG received update from [facility] that they will accept patient and see him tomorrow. TORIN CHENG updated hospitalist and discharge planned for today. TORIN CHENG in to updated patient, patient voiced appreciation and had no further questions or concerns.
--- NOTE | 2023-09-19 17:34 | CASEMGMT ---
TORIN CM: This narrative writer contacted [id number] to arrange transport home. Pt's information provided to site safety representative Adolfo. Upon attempting to set up ride, determined all of their vendors closed at 5pm and are not available to transport pt home this evening. A ride could be scheduled for tomorrow 09/19. Given need to transport home this evening for HH SOC tomorrow this was not set up at this time. Discussed next steps with Paola Pizano RN CM to try a taxi service. Panfilo Jones RN ACM
--- NOTE | 2023-09-20 14:32 | CASEMGMT ---
TORIN CHENG received updated from [facility] that they went to see patient for start of care. Patient refused [facility] services. Per [facility], patient had tube feeds on the floor, smoking a cigarette, and drinking a Coke. TORIN CHENG updated SW, SW states they will make report to APS.
--- NOTE | 2023-09-20 14:40 | CASEMGMT ---
RN SKYLAR notified LONI that patient refused [facility] HH, tube feeds were all over the floor, patient was drinking coke, and smoking with oxygen. LONI called Basim at [facility]. LONI relayed this information to Basim. Basim stated she has an open case on patient and appreciates this information. She will go out to see patient. Estelita MCKINNON
== END 2023-09-19 18:09 | disposition home or self-care (01) | DRG 190 ==
LOC: ED 22:41 → PCU 23:02
PROVIDERS: Nurse Practitioner; Admitting Provider Internal Medicine; Emergency Provider Emergency Medicine; PCP Physician Assistant; Visit Provider Internal Medicine
DX: J44.1 Chronic obstructive pulmonary disease with (acute) exacerbation (principal); E43 Unspecified severe protein-calorie malnutrition; J96.11 Chronic respiratory failure with hypoxia; Z68.1 Body mass index [BMI] 19.9 or less, adult; Z93.1 Gastrostomy status; I10 Essential (primary) hypertension; I25.2 Old myocardial infarction; Z91.199 Patient's noncompliance with other medical treatment and regimen due to unspecified reason; M62.81 Muscle weakness (generalized); Z72.0 Tobacco use
CPT/HCPCS: 36415; 71045; 80048; 80053; 83735; 83880; 84100; 84443; 84484; 85025; 87631; 93005; 94640; 94668; 97162; 97166; 97530; 97535; 97802; 99252; 99284; 99406; J7030; A4216; G0463; J0295

== ENCOUNTER 2023-09-21 11:26 | Emergency (ER) | payer MEDICARE, MEDICAID, SELFPAY ==
[2023-09-21] VITALS (11 sets, daily range): BP systolic 127–173; BP diastolic 87–113; PULSE 82–103; RESP 18–22; TEMP 35.9–36.9; O2SAT 89–98; BMI 18.5
--- NOTE | 2023-09-21 11:37 | EKG12_ITS ---
Test Reason : SOB Blood Pressure : / mmHG Vent. Rate : 086 BPM Atrial Rate : 086 BPM P-R Int : 126 ms QRS Dur : 078 ms QT Int : 386 ms P-R-T Axes : 086 057 071 degrees QTc Int : 461 ms Normal sinus rhythm Normal ECG Confirmed by MADONNA WILD, KWAME ([id number]), newspaper editor DARWIN AGUILAR ([id number]) on 09/23/2023 9:42:27 AM Referred By: Confirmed By:KWAME PEACOCK MD
--- NOTE | 2023-09-21 11:40 | ED.RN ---
PT HAS PEG TUBE, STILL TAKES FLUIDS BY MOUTH.
--- NOTE | 2023-09-21 11:41 | EDS_ITS ---
HPI History of Present Illness Chief Complaint: Shortness of Breath Detail of Chief Complaint: Abrupt onset of shortness of breath. Informant: patient Onset/Context/Timing Onset: Today and Hours Context: sudden Timing: Continuous Quality: Positive for Dyspnea on exertion and Orthopnea Current Severity: Moderate Maximum Severity: Severe Worsened by: Exertion and Coughing Relieved by: Nothing Associated Symptoms cough, sore throat and other; Negative for rhinorrhea, post nasal drip, ear pain, fever, subjective, chills or sweats Chest Pain: Positive for None Narrative Narrative: Patient is a 63-year-old male with history of throat cancer 14 years ago. He has a feeding tube in place, which she does not always use and admits he has been eating things that he should not be eating. He was admitted August [address] Amaya and August for pneumonia. Patient admitted to the clinicians for those visits that he continues to eat and spite of being told not to. He does endorse COPD, chronic respiratory failure on 6 L of oxygen by nasal cannula, aspiration pneumonia, medical noncompliance and generalized weakness. PE Risk Factors: Positive for Cancer (Diagnosed 14 years ago and no recurrence); Negative for OCP + Smoking + > 35, Prior DVT or PE, Recent immobilization, Recent surgery or Recent travel Prior similar symptoms: Yes Recent Illness/Hospitalization: Yes [facility] Medical History Acute and chronic respiratory failure with hypoxia Aspiration pneumonitis Asthma Chronic hyponatremia COPD (chronic obstructive pulmonary disease) COPD exacerbation History of alcohol abuse History of GI bleed History of throat cancer History of tobacco use Hypertension Severe malnutrition Home Medications albuterol sulfate 2.5 mg/3 mL (0.083 %) solution for nebulization 2.5 mg (3 mL) inhalation Q2H PRN PRN Dyspnea, wheezing #0 mL 08/21/23 [Rx Last Taken Unknown] lactose-reduced food with fiber 0.06 gram-1.5 kcal/mL oral liquid (Jevity 1.5 Jason) 240 ml G-tube 6X/DAY #0 mL 08/21/23 [Rx Last Taken Unknown] multivitamin-iron 9 mg-folic acid 400 mcg-calcium and minerals tablet (Therapeutic-M) 1 tab feeding tube BREAKFAST #0 tabs 08/21/23 [Rx Last Taken Unknown] acetaminophen 325 mg tablet 650 mg feeding tube Q4H PRN PRN Fever, pain 1-03/0508/28/23 [History Last Taken Unknown] carvedilol 6.25 mg tablet 6.25 mg feeding tube BIDCM 30 days #60 tabs 09/19/23 [Rx Last Taken Unknown] guaifenesin 200 mg/5 mL oral liquid 600 mg (15 mL) feeding tube Q4H PRN congestion #118 mL 09/19/23 [Rx Last Taken Unknown] ipratropium 0.5 mg-albuterol 3 mg (2.5 mg base)/3 mL nebulization soln 3 ml inhalation Q4HWA.RT PRN SOB 1 month #180 mL 09/19/23 [Rx Last Taken Unknown] lansoprazole 15 mg capsule,delayed release 30 mg (2 x 15 mg) G-tube DAILY 1 month #60 caps 09/19/23 [Rx Last Taken Unknown] magnesium oxide 400 mg feeding tube DAILY 1 month #30 caps 09/19/23 [Rx Last Taken Unknown] melatonin 5 mg capsule 5 mg feeding tube DAILY 30 days #30 caps 09/19/23 [Rx Last Taken Unknown] metoclopramide HCl 10 mg tablet (Reglan) 10 mg feeding tube Q8 1 month #90 tabs 09/19/23 [Rx Last Taken Unknown] nicotine 14 mg/24 hr daily transdermal patch 14 mg transdermal DAILY #28 ea 09/19/23 [Rx Last Taken Unknown] prednisone 10 mg tablet 10 mg feeding tube DAILY #30 tabs 09/19/23 [Rx Last Taken Unknown] dexamethasone 0.5 mg/5 mL oral elixir 1 mg (10 mL) PO DAILY #50 mL 09/21/23 [Rx Last Taken Unknown] Allergy/AdvReac Type Severity Reaction Status Date / Time No Known Allergies Allergy Verified 08/13/23 21:05 Family History Mother No problems noted. Father No problems noted. Surgical History History of throat surgery Social History household members: none housing: long-term current occupational status: employed Smoking Status: Former smoker how long ago did patient quit smoking: Quit during most recent admission 08/11/23. alcohol intake: former details: Prior 5 shots hard liquor, several beers daily, none since 07/2023 admission substance use type: does not use ROS ROS ED Constitutional Constitutional ED: Denies chills, fever(s), sweats or weight loss Eyes Eyes: Denies blurry vision or change in vision ENT ENT ED: Reports sore throat; Denies ear pain or rhinorrhea Cardiovascular Cardiovascular: Denies chest pain, orthopnea, palpitations, paroxysmal nocturnal dyspnea or racing heartbeat Respiratory/Chest Respiratory/Chest: Reports cough, dyspnea, dyspnea on exertion and sputum; Denies orthopnea or paroxysmal nocturnal dyspnea Gastrointestinal Gastrointestinal: Denies abdominal pain, diarrhea, melena or vomiting Genitourinary Genitourinary ED: Denies dysuria or urinary frequency Musculoskeletal Musculoskeletal: Denies neck pain Integumentary Denies rash Neurologic Neurologic: Reports weakness; Denies headache(s) Hematologic/Lymphatic Hematologic/Lymphatic: Denies easy bleeding or easy bruising EXAM Physical Exam Const Vital Signs: 09/21/23 11:27 09/21/23 11:27 09/21/23 11:38 Temperature 96.6 F L Temperature Source Temporal Pulse Rate 91 85 Respiratory Rate 20 H 20 H Respiratory Effort Labored Respiratory Depth Shallow Respiratory Pattern Normal Blood Pressure 144/104 H 150/97 H Blood Pressure Mean 117 114 Pulse Ox 89 96 Oxygen Delivery Method Nasal Cannula Nasal Cannula Nasal Cannula Oxygen Flow Rate (L/min) 6 6 6 09/21/23 11:43 09/21/23 12:26 09/21/23 12:32 Temperature 97.0 F L 97.5 F L Temperature Source Temporal Temporal Pulse Rate 87 86 91 Respiratory Rate 21 H 20 H 20 H Respiratory Effort Respiratory Depth Respiratory Pattern Blood Pressure 150/97 H 136/95 H 154/103 H Blood Pressure Mean 114 108 120 Pulse Ox 95 95 94 Oxygen Delivery Method Nasal Cannula Nasal Cannula Room Air Oxygen Flow Rate (L/min) 6 6 09/21/23 12:53 09/21/23 12:53 09/21/23 13:00 Temperature 98.4 F Temperature Source Temporal Pulse Rate 96 95 Respiratory Rate 22 H 21 H Respiratory Effort Respiratory Depth Respiratory Pattern Blood Pressure 173/113 H Blood Pressure Mean 133 Pulse Ox 95 98 Oxygen Delivery Method Nasal Cannula Oxygen Flow Rate (L/min) 6 09/21/23 14:00 Temperature 97.3 F L Temperature Source Temporal Pulse Rate 98 Respiratory Rate 20 H Respiratory Effort Respiratory Depth Respiratory Pattern Blood Pressure 148/106 H Blood Pressure Mean 120 Pulse Ox 94 Oxygen Delivery Method Nasal Cannula Oxygen Flow Rate (L/min) 6 Positive well developed and cachectic Constitutional Narrative: Patient is in respiratory distress with use of accessory muscles. Pulse ox is not accurate. General Appearance ED: well developed, cachectic and pallor Nutritional Appearance: cachectic HEENT Reports dry mucous membranes HEENT Narrative: Ears are normal. Nares are patent. Posterior pharynx is normal. atraumatic; Negative for tenderness Mouth ED: Yes dry mucous membranes Mouth: dry mucous membranes Eyes PERRL and EOMs intact bilaterally General Eye ED: Negative for pale conjunctiva or scleral icterus Neck no lymphadenopathy, supple, no meningeal signs and no JVD Resp No normal respiratory effort and No clear to auscultation bilaterally Auscultation: rales bilateral mid and lower and rhonchi throughout Cardio regular rate, regular rhythm, S1 normal heart sound, S2 normal heart sound and no murmurs GI non-tender, non-distended and no masses GI Narrative: Feeding tube noted. Back/Spine no CVA tenderness Extremity Extremity Narrative: Pedal edema with stigmata of PAD, thickened nails, absent hair on toes and shiny thin skin. General Extremety ED: Yes edema General Extremity: edema Neuro oriented x3 and CN's II-XII intact bilaterally [place] Coma Scale: document GCS findings Spontaneous Obeys Commands Oriented 15 Sensorium / Orientation: Negative for alert Psych mental status grossly normal Skin General Skin Exam: pallor; Negative for jaundice MDM MDM MDM Narrative Medical decision making narrative: Suspect patient aspirated reason for his abrupt respiratory decompensation. This also may represent COPD exacerbation. Doubt congestive heart failure. EKG was obtained because he has peaked T waves on the monitor to evaluate for possible hyperkalemia or cardiac ischemia. Chest x-ray was obtained to assess for pneumonia rule out pneumothorax etc. Appropriate blood work to assess for endorgan dysfunction since there is consideration for sepsis. Prior records were reviewed. This was documented in the HPI narrative Three-view x-ray of the great toe reveals no evidence of fracture or foreign body. This was entirely reviewed interpreted by me. History & Record Review Additional record(s) reviewed:: Prior inpatient record, Prior ED visit and Prior labs Lab Data Attestation: I reviewed the patient's lab results. Lab results narrative: White count is elevated with shift. Patient's hemoglobin is up approximately 2 g higher than baseline which is probably represent dehydration. Electrolyte panel reveals elevated CO2. Mild hyponatremia and hypochloremia. This is baseline for patient. Patient BUN to creatinine is at baseline as well. BUN to creatinine ratio is elevated at 28-1. CO2 is elevated. CO2 is normally within normal range. VBG was ordered to assess for CO2 retention and determine acid- base status. Labs: Laboratory Results - last 24 hr 09/21/23 11:55 WBC 13.0 H RBC 3.78 L Hgb 12.2 L Hct 37.8 L MCV 100.0 H MCH 32.3 H MCHC 32.3 RDW Std Deviation 56.1 H RDW Coeff of Tony 15.0 H Plt Count 493 H MPV 8.9 Immature Gran % (Auto) 0.500 Neut % (Auto) 83.9 H Lymph % (Auto) 6.4 L Bee % (Auto) 8.2 Eos % (Auto) 0.9 Baso % (Auto) 0.1 Absolute Neuts (auto) 10.9 H Absolute Lymphs (auto) 0.83 Nucleated RBC % 0 Sodium 133 L Potassium 3.8 Chloride 92 L Carbon Dioxide 37.0 H Anion Gap 4 L BUN 19 H Creatinine 0.68 L Estim Creat Clear Calc 85.16 Est GFR (MDRD) Af Amer 152 Est GFR (MDRD) Non-Af 125 BUN/Creatinine Ratio 28.1 H Glucose 102 Lactic Acid 1.6 Calcium 9.5 Total Bilirubin 0.50 AST 21 ALT 33 Alkaline Phosphatase 117 Total Protein 7.3 Albumin 3.1 L Globulin 4.2 Albumin/Globulin Ratio 0.7 L ABG Data Attestation: I personally reviewed and interpreted this ABG as follows: Interpretation: VBG reveals chronic CO2 retention. pH is 7.39. Bicarb is 37 with a total CO2 of 39. ABG results: ABG 09/21/23 12:03 Specimen Type PARTH Sample Site Not entered O2 % 6.0 VBG pH 7.39 VBG pO2 20 L VBG HCO3 37 H VBG Total CO2 39 H VBG O2 Sat (Calc) 28 L VBG Base Excess 12 H POC Mix VBG pCO2 Pt Tmp 61.6 H O2 Delivery Device Not entered Crit Call To/Read Back Yes Radiography Chest X-Ray - ED: 1 View and Read by ED Physician (Reviewed interpreted by me at 1127. There is hyperaeration. Cardiac silhouette size normal. There is chronic changes. No acute process infiltrate or effusion. There is no evidence of pneumothorax. [place] is unremarkable. Osseous trucks unremarkable.) Diagnostic Testing: Clinical Impression(s) from Imaging Studies Chest X-Ray 09/21/23 12:15 IMPRESSION: Resolving bibasilar edema/infiltrates. Electronically Signed: Lewis Barrow MD at 12:48 EDT , Toe X-Ray 09/21/23 13:03 IMPRESSION: No acute abnormality. DJD. Electronically Signed: Lewis Barrow MD at 13:20 EDT , Rhythm Strip Rhythm Strip: Sinus Tach Rate: 84 Ectopy: None EKG Initial EKG: Attestation: I personally reviewed and interpreted this EKG as follows: Interpretation: Sinus Rhythm (Normal sinus rhythm rate of 86. There is prominent T waves which raises concern for hyperkalemia. RI interval is 126 ms. Cures 378 ms. QT duration 386 ms. [place] is normal) Treatment and Re-Evaluation :: Since chest x-ray reveals no infiltrate and does have history of COPD with rhonchi throughout will treat with albuterol and Atrovent aerosol treatments. Patient is receiving his aerosol treatment at this time. Patient complaining of right great toe pain. He dropped his oxygen tank onto his foot. There is evidence of trauma. Since he is n.p.o. he was administered 2 mg of morphine IV push. X-ray was obtained. Patient was asked specifically what was the last time he had something to eat. He states last evening he had a sandwich. He does admit that he choked and may have aspirated. Patient was reassessed at [phone]. Patient's breathing has improved. His oxygenation has improved. He reports he feels markedly better. He was informed he cannot eat or drink anything because he probably aspirates and causes his dyspnea and exacerbation of his COPD. Since there is no infiltrate he is not febrile he was not placed on antibiotics. With no infiltrate on chest x-ray or fever. Literature antibiotics are not required. Discharge Plan Triage Chief Complaint: Shortness of Breath ED Provider: Corbin Ferrer Dx/Rx/DC Orders Clinical Impression: Acute exacerbation of chronic obstructive pulmonary disease, Medical non- compliance, Acute bronchospasm, Aspiration of food, Chronic respiratory failure with hypoxia and hypercapnia Instructions: Dysphagia Aspiration, ED COPD Flare Prescriptions: New dexamethasone 0.5 mg/5 mL elixir 1 mg PO DAILY Qty: 50 0RF No Action albuterol sulfate 2.5 mg /3 mL (0.083 %) Solution For Nebulization 2.5 mg inhalation Q2H PRN PRN (Reason: Dyspnea, wheezing) Qty: 0 0RF Therapeutic-M 9 mg iron-400 mcg Tablet 1 tab feeding tube BREAKFAST Qty: 0 0RF Jevity 1.5 Jason 0.06 gram-1.5 kcal/mL Liquid 240 ml G-tube 6X/DAY Qty: 0 0RF nicotine 14 mg/24 hr Patch 24 Hour 14 mg transdermal DAILY Qty: 28 0RF prednisone 10 mg tablet 10 mg feeding tube DAILY Qty: 30 0RF Rx Instructions: 40 mg for 3 days 30 mg for 3 days, 20 mg for 3 days,and 10 mg for 3 days guaifenesin 200 mg/5 mL liquid 600 mg feeding tube Q4H PRN (Reason: congestion) Qty: 118 0RF carvedilol 6.25 mg Tablet 6.25 mg feeding tube BIDCM 30 Days Qty: 60 3RF ipratropium-albuterol 0.5 mg-3 mg(2.5 mg base)/3 mL Solution For Nebulization 3 ml inhalation Q4HWA.RT PRN (Reason: SOB) 30 Days Qty: 180 0RF lansoprazole 15 mg Capsule,Delayed Release(Dr/Ec) 30 mg G-tube DAILY 30 Days Qty: 60 0RF metoclopramide HCl [Reglan] 10 mg tablet 10 mg feeding tube Q8 30 Days Qty: 90 0RF melatonin 5 mg capsule 5 mg feeding tube DAILY 30 Days Qty: 30 0RF magnesium oxide 400 mg magnesium capsule 400 mg feeding tube DAILY 30 Days Qty: 30 0RF acetaminophen 325 mg Tablet 650 mg feeding tube Q4H PRN PRN (Reason: Fever, pain 1-03/05) Primary Care Provider: Cha Powell Referrals: Cha Powell, PA [Primary Care Provider] - 3-5 Days Activity Restrictions/Additional Instructions: 1. You should drink nothing or eat nothing by mouth since you aspirate. 2. If you develop a temperature or have increased shortness of breath return to the emergency department Disposition Disposition: Home, Self Care
[2023-09-21 12:04] LABS: Absolute Lymphocyte Count 0.83 X10^3/uL (0.83-4.51); Absolute Neutrophil Count 10.9 X10^3/uL (2.0-7.7); Basophil# 0.01 X10^3/uL; Basophil% 0.1 % (0-1); Eosinophil# 0.12 X10^3/uL; Eosinophils% 0.9 % (0-5); Hematocrit 37.8 % (40-54); Hemoglobin 12.2 g/dL (13.0-16.5); Lymphocyte # 0.83 X10^3/ul (0.83-4.51); Lymphocyte % 6.4 % (19-41); Mean Corp Hgb Conc 32.3 g/dL (32-36); Mean Corpuscular Hgb 32.3 pg (27.0-32.0); Mean Platelet Vol. 8.9 fl (6.2-12.0); Monocyte# 1.06 X10^3/uL; Monocyte% 8.2 % (0-10); NRBC Flagged by Analyzer 0 % (0-5); Neutrophil # 10.86 X10^3/uL (2.7-7.7); Neutrophil % 83.9 % (47-70); Platelet Count 493 K/mm3 (150-450); RBC Distribution Width SD 56.1 fl (35.1-43.9); Red Blood Count 3.78 M/mm3 (4.6-6.2)
[2023-09-21 12:07] LABS: Blood Gas Specimen Type VEN; O2 Delivery Device Not entered; SITE Not entered; VBG BASE EXCESS 12 mmol/L (-1.0-3.5); VBG Bicarbonate 37 mmol/L (22-26); VBG PO2 20 mmHg (25-40); VBG SO2 28 % (50-70); VBG TCO2 39 mmol/L (23-33); VBG pCO2 61.6 mmHg (41-51); VBG pH 7.39 (7.32-7.42)
--- NOTE | 2023-09-21 12:15 | RAD_ITS ---
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 COMPARISON: XR Chest dated 09/16/2023 FINDINGS: LUNGS AND PLEURAL SPACES: Improving reticular densities within the lower lobes which may represent resolving edema or infiltrates. HEART: Normal heart size. MEDIASTINUM: No mediastinal or hilar mass. BONES/JOINTS: No acute abnormality. RAD/Chest 1 View (Portable) IMPRESSION: Resolving bibasilar edema/infiltrates. Electronically Signed: Lewis Barrow MD at 12:48 EDT ,
[2023-09-21 12:20] LABS: ALB/GLOB Ratio 0.7 RATIO (0.9-2.4); AST(SGOT) 21 U/L (15-37); Alanine Aminotransfer ALT/SGPT 33 U/L (16-61); Albumin, Serum 3.1 g/dL (3.2-5.0); Alkaline Phosphatase 117 U/L (45-117); Anion Gap 4 (5-15); BUN 19 mg/dL (7-18); BUN/Creat Ratio 28.1 RATIO (10-20); Calcium,Total 9.5 mg/dL (8.5-10.1); Chloride 92 mmol/L (98-107); Creatinine, Serum 0.68 mg/dL (0.70-1.30); EST Glomerular Filtration Rate 125 mL/min (>60); Est Glom Filt Rate - Afr Amer 152 mL/min (>60); Estimated Creatinine Clearance 85.16 ml/min; Globulin 4.2 g/dL (2.2-4.2); Glucose 102 mg/dL (74-106); Potassium 3.8 mmol/L (3.5-5.1); Protein, Total 7.3 g/dL (6.4-8.2); Sodium Level 133 mmol/L (136-145)
[2023-09-21 12:50] LABS: Lactic Acid 1.6 mmol/L (0.4-1.9)
[2023-09-21] MEDS: Ipratropium/Albuterol Sulfate 3 ML AMPUL.NEB INHALATION (12:51)
[2023-09-21] MEDS: Albuterol 2.5 MG/3 ML VIAL.NEB. INHALATION ×2 (12:51→13:07)
--- NOTE | 2023-09-21 13:03 | RAD_ITS ---
EXAM: XR RIGHT TOES, 2 OR MORE VIEWS CLINICAL INDICATION: Blunt trauma right great toe, IP joint TECHNIQUE: Frontal, lateral and oblique views of the toes of the right foot. COMPARISON: No relevant prior studies available. FINDINGS: BONES/JOINTS: No acute fracture or subluxation. Joint space narrowing and bony spurring of the first MTP joint. SOFT TISSUES: Normal. No radiopaque foreign body. RAD/Toe(s) Min 2 Views IMPRESSION: No acute abnormality. DJD. Electronically Signed: Lewis Barrow MD at 13:20 EDT ,
[2023-09-21] MEDS: Morphine 2 MG/ML Syringe IV (13:06)
--- NOTE | 2023-09-21 15:35 | ED.RN ---
PT VERBALIZES CONCERNS ABOUT NO RIDE HOME AND NO ALBUTEROL AT HOME. DR DUARTE ORDERED INHALER OF HOME AND PT QUAILIFIES FOR AMBULETE WITH HIS HOME O2 NEED OF 6L. TRANSPORT SETUP WITH ETA 60-90MIN. PT UPDATED. REVIEWED DC WITH PT AND PT VERBLIZES UNDERSTANDING.
--- NOTE | 2023-09-21 17:05 | ED.RN ---
AMBULANCE HERE FOR PICKUP. ASSITED WITH GETTING DRESSED. REPORT GIVEN. NO FURTHER NEEDS VOICED.
== END 2023-09-21 17:10 | disposition home or self-care (01) ==
PROVIDERS: Emergency Provider Emergency Medicine; PCP Physician Assistant; Visit Provider Emergency Medicine
DX: J96.22 Acute and chronic respiratory failure with hypercapnia (principal); Z93.1 Gastrostomy status; J96.11 Chronic respiratory failure with hypoxia; J44.1 Chronic obstructive pulmonary disease with (acute) exacerbation; Z91.199 Patient's noncompliance with other medical treatment and regimen due to unspecified reason; J98.01 Acute bronchospasm; Z87.891 Personal history of nicotine dependence; Z85.89 Personal history of malignant neoplasm of other organs and systems; I10 Essential (primary) hypertension; M79.674 Pain in right toe(s); W22.8XXA Striking against or struck by other objects, initial encounter; T17.928A Food in respiratory tract, part unspecified causing other injury, initial encounter
CPT/HCPCS: 71045; 73660; 80053; 82803; 83605; 85025; 87040; 93005; 94640; 99283; A4216

== ENCOUNTER 2023-09-22 14:29 | Inpatient (IN) | payer MEDICARE, MEDICAID, SELFPAY ==
[2023-09-22] VITALS (12 sets, daily range): BP systolic 136–162; BP diastolic 82–104; PULSE 65–83; RESP 18–27; TEMP 36.3–37.2; O2SAT 90–100; BMI 18.1; BMI 16.2
--- NOTE | 2023-09-22 14:50 | ED.VIS.DYS ---
HPI History of Present Illness Chief Complaint: Shortness of Breath Detail of Chief Complaint: Productive cough, increased shortness of breath, wheezing Informant: patient Onset/Context/Timing Onset: Days Context: gradual Timing: Intermittent and Waxes and wanes Quality: Positive for Dyspnea on exertion and Wheezing; Negative for Orthopnea or PND Current Severity: Moderate Worsened by: Exertion and Coughing Relieved by: Nothing Associated Symptoms cough and sore throat; Negative for rhinorrhea, post nasal drip, ear pain, fever, subjective or sweats Chest Pain: Positive for None Narrative Narrative: Patient is a 63-year-old male. He was seen by me yesterday. He apparently ate when he went home. When I entered the room he asked for water. Patient is supposed to be n.p.o. Patient has history of aspiration and noncompliance. Patient denies fever or chills. Denies rhinorrhea congestion postnasal drainage. Does complain of sore throat. He does have a cough productive of beige-colored sputum. This is not abnormal for him. He has increased production of sputum. He was noted to be hypoxic by squad. Patient has remote history of laryngeal cancer. He denies history of PE or DVT and there is no past medical history of PE or DVT. He denies chest pain. He denies abdominal pain. Denies nausea, vomit or diarrhea. He denies urologic symptoms. He denies swelling of his legs. He denies orthopnea. States he sleeps with 1 pillow. Apparently he did not fill his prescriptions last evening. PE Risk Factors: Positive for Cancer (Remote and diagnosed 14 years ago); Negative for OCP + Smoking + > 35, Prior DVT or PE, Recent immobilization, Recent surgery or Recent travel Prior similar symptoms: Yes Recent Illness/Hospitalization: [facility] Medical History Acute and chronic respiratory failure with hypoxia Aspiration pneumonitis Asthma Chronic hyponatremia COPD (chronic obstructive pulmonary disease) COPD exacerbation History of alcohol abuse History of GI bleed History of throat cancer History of tobacco use Hypertension Severe malnutrition Home Medications albuterol sulfate 2.5 mg/3 mL (0.083 %) solution for nebulization 2.5 mg (3 mL) inhalation Q2H PRN PRN Dyspnea, wheezing #0 mL 08/21/23 [Rx Last Taken 09/22/23] lactose-reduced food with fiber 0.06 gram-1.5 kcal/mL oral liquid (Jevity 1.5 Jason) 240 ml G-tube 6X/DAY #0 mL 08/21/23 [Rx Last Taken Unknown] multivitamin-iron 9 mg-folic acid 400 mcg-calcium and minerals tablet (Therapeutic-M) 1 tab feeding tube BREAKFAST #0 tabs 08/21/23 [Rx Last Taken 09/21/23] acetaminophen 325 mg tablet 650 mg feeding tube Q4H PRN PRN Fever, pain 1-03/0508/28/23 [History Last Taken Unknown] carvedilol 6.25 mg tablet 6.25 mg feeding tube BIDCM 30 days #60 tabs 09/19/23 [Rx Last Taken 09/22/23] guaifenesin 200 mg/5 mL oral liquid 600 mg (15 mL) feeding tube Q4H PRN congestion #118 mL 09/19/23 [Rx Last Taken Unknown] ipratropium 0.5 mg-albuterol 3 mg (2.5 mg base)/3 mL nebulization soln 3 ml inhalation Q4HWA.RT PRN SOB 1 month #180 mL 09/19/23 [Rx Last Taken 09/22/23] lansoprazole 15 mg capsule,delayed release 30 mg (2 x 15 mg) G-tube DAILY 1 month #60 caps 09/19/23 [Rx Last Taken 09/21/23] magnesium oxide 400 mg feeding tube DAILY 1 month #30 caps 09/19/23 [Rx Last Taken 09/21/23] melatonin 5 mg capsule 5 mg feeding tube DAILY 30 days #30 caps 09/19/23 [Rx Last Taken 09/21/23] metoclopramide HCl 10 mg tablet (Reglan) 10 mg feeding tube Q8 1 month #90 tabs 09/19/23 [Rx Last Taken 09/22/23] nicotine 14 mg/24 hr daily transdermal patch 14 mg transdermal DAILY #28 ea 09/19/23 [Rx Last Taken Unknown] prednisone 10 mg tablet 10 mg feeding tube DAILY #30 tabs 09/19/23 [Rx Last Taken 09/21/23] dexamethasone 0.5 mg/5 mL oral elixir 1 mg (10 mL) PO DAILY #50 mL 09/21/23 [Rx Last Taken Unknown] Allergy/AdvReac Type Severity Reaction Status Date / Time No Known Allergies Allergy Verified 08/13/23 21:05 Family History Mother No problems noted. Father No problems noted. Surgical History History of throat surgery Social History household members: none housing: long-term current occupational status: employed Smoking Status: Current some day smoker tobacco type: cigarettes how long ago did patient quit smoking: Quit during most recent admission 08/11/23. alcohol intake: former details: Prior 5 shots hard liquor, several beers daily, none since 07/2023 admission substance use type: does not use ROS ROS ED Constitutional Constitutional ED: Reports sweats; Denies chills, fever(s) or weight loss Eyes Eyes: Denies blurry vision, change in vision or diplopia ENT ENT ED: Reports sore throat; Denies ear pain or rhinorrhea Cardiovascular Cardiovascular: Denies chest pain, orthopnea, palpitations, paroxysmal nocturnal dyspnea or racing heartbeat Respiratory/Chest Respiratory/Chest: Reports cough, dyspnea, dyspnea on exertion and sputum; Denies orthopnea or paroxysmal nocturnal dyspnea Gastrointestinal Gastrointestinal: Denies abdominal pain, diarrhea, nausea or vomiting Genitourinary Genitourinary ED: Denies dysuria or hematuria Musculoskeletal Musculoskeletal: Denies arthralgias or myalgias Integumentary Denies rash Neurologic Neurologic: Reports weakness; Denies headache(s) Psychiatric Psychiatric: Denies anxiety or depression Hematologic/Lymphatic Hematologic/Lymphatic: Denies easy bleeding or easy bruising Allergic/Immunologic Allergic/Immunologic ED: Denies mouth swelling or tongue swelling EXAM Physical Exam Const Vital Signs: 09/22/23 14:32 09/22/23 14:32 09/22/23 14:44 Temperature 98.2 F 98.2 F Temperature Source Oral Oral Pulse Rate 71 68 Respiratory Rate 24 H 27 H Respiratory Effort Non-Labored Short of Breath Respiratory Depth Normal Respiratory Pattern Normal Blood Pressure 140/104 H 140/104 H Blood Pressure Mean 116 116 Pulse Ox 94 99 Oxygen Delivery Method Nasal Cannula Nasal Cannula Nasal Cannula Oxygen Flow Rate (L/min) 6 6 6 09/22/23 15:12 09/22/23 15:12 09/22/23 14:38 Temperature 98.0 F Temperature Source Temporal Pulse Rate 76 78 Respiratory Rate 18 20 H Respiratory Effort Respiratory Depth Respiratory Pattern Blood Pressure 141/94 H Blood Pressure Mean 109 Pulse Ox 93 100 Oxygen Delivery Method Nasal Cannula Nasal Cannula Oxygen Flow Rate (L/min) 6 6 09/22/23 15:38 Temperature 97.8 F Temperature Source Temporal Pulse Rate 65 Respiratory Rate 19 H Respiratory Effort Respiratory Depth Respiratory Pattern Blood Pressure 143/83 H Blood Pressure Mean 103 Pulse Ox 91 Oxygen Delivery Method Nasal Cannula Oxygen Flow Rate (L/min) 6 Positive well developed and cachectic Constitutional Narrative: Patient is diaphoretic. He is not hypoxic at this time. His vitals are remarkable for tachypnea. He is not tachycardic. He is presently on 6 L which is his baseline with a 94 to 99% saturation. Patient appears much worse than yesterday. He has a hoarse voice, which she did not have yesterday. General Appearance ED: well developed, cachectic and pallor; Negative for NAD Nutritional Appearance: cachectic HEENT Reports TM's clear and dry mucous membranes atraumatic Tympanic Membrane ED: Yes TM's clear Mouth ED: Yes dry mucous membranes Mouth: dry mucous membranes Eyes PERRL and EOMs intact bilaterally General Eye ED: Negative for pale conjunctiva or scleral icterus Neck no lymphadenopathy, supple, no meningeal signs and no JVD Neck Narrative: Trachea is midline. Patient is noted to have suprasternal retractions. There is no stridor with auscultation of the neck. Resp No normal respiratory effort and No clear to auscultation bilaterally Resp Narrative: Patient has inspiratory rales lower third of the lungs bilaterally. Patient has rhonchi wheezing noted throughout. Cardio regular rate, regular rhythm, S1 normal heart sound, S2 normal heart sound and no murmurs GI non-tender, non-distended and no masses Auscultation: normoactive bowel sounds Palpation: soft; Negative for tender, guarding, hepatomegaly or splenomegaly Back/Spine no CVA tenderness and normal to inspection General Back: Negative for CVA tenderness Extremity Extremity Narrative: There is evidence of bilateral pedal edema. Patient has lack of hair and lower extremity suggestive of peripheral arterial disease. Neuro CN's II-XII intact bilaterally Neuro Narrative: Patient is awake. Darlene Coma Scale: document GCS findings Spontaneous Obeys Commands Oriented 15 Psych mental status grossly normal Mood & Affect: depressed Skin no wounds and No skin turgor normal Skin Narrative: Patient has multiple abrasions right and left lower extremity. General Skin Exam: pallor; Negative for jaundice MDM MDM MDM Narrative Medical decision making narrative: Since patient is noncompliant admits to eating and has known history of aspiration concern patient aspirated. Since he is much worse he in all likelihood will require admission to the hospital. There is evidence of CO2 retention yesterday. 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 Since he is worse will obtain ABG to assess acid-base status, oxygen and CO2. Chest x-ray to determine if there is evidence of aspiration pneumonitis which was not known yesterday. EKG to rule out cardiac ischemia since he has abnormal appearing T waves noted on the monitor. Rapid antigen for COVID, influenza RSV was not obtained since this was obtained yesterday and was negative. History & Record Review Additional record(s) reviewed:: Prior inpatient record (As documented yesterday he was admitted in June and July.), Prior outpatient record (No change from yesterday), Prior ED visit (No change from yesterday) and Prior labs Lab Data Attestation: I reviewed the patient's lab results. Lab results narrative: White count is slightly elevated. It is improved since yesterday. There is a slight shift. Hemoglobin is 10.9 with hematocrit of 33.3. This is lower than yesterday. However, this is patient's baseline. Yesterday it was suspected he was dehydrated. Labs: Laboratory Results - last 24 hr 09/22/23 15:20 WBC 11.6 H RBC 3.42 L Hgb 10.9 L Hct 33.3 L MCV 97.4 H MCH 31.9 MCHC 32.7 RDW Std Deviation 53.7 H RDW Coeff of Tony 14.9 H Plt Count 451 H MPV 9.3 Immature Gran % (Auto) 0.800 Neut % (Auto) 82.6 H Lymph % (Auto) 5.6 L [place] % (Auto) 8.0 Eos % (Auto) 2.8 Baso % (Auto) 0.2 Absolute Neuts (auto) 9.6 H Absolute Lymphs (auto) 0.65 L Nucleated RBC % 0 Sodium 132 L Potassium 3.9 Chloride 93 L Carbon Dioxide 35.0 H Anion Gap 4 L BUN 26 H Creatinine 0.56 L Estim Creat Clear Calc 83.33 Est GFR (MDRD) Af Amer 190 Est GFR (MDRD) Non-Af 157 BUN/Creatinine Ratio 46.8 H Glucose 106 Lactic Acid 0.5 Calcium 9.2 Total Bilirubin 0.40 AST 17 ALT 26 Alkaline Phosphatase 93 Total Protein 6.2 L Albumin 2.6 L Globulin 3.6 Albumin/Globulin Ratio 0.7 L ABG Data ABG results: ABG 09/22/23 15:27 Specimen Type ART Sample Site R Brach pH 7.49 H Bicarbonate Actual 33.7 H Total CO2 35 Base Excess 10 H O2 Saturation 98 O2 % 6.0 ABG pCO2 44.2 ABG pO2 91 O2 Delivery Device Cannula Vent Mode Not entered Radiography Chest X-Ray - ED: 2 View and Read by ED Physician (Hyperaeration with chronic changes. Cardiac silhouette and size normal. Hilar region is unremarkable. Osseous structures are unremarkable. This is apparently reviewed interpreted by me at 1538.) EKG Initial EKG: Attestation: I personally reviewed and interpreted this EKG as follows: Interpretation: Sinus Rhythm (Rate is 68. The EKG is normal. MS interval is 138 ms per cures duration 80 ms per QT duration 4 ms. [place] is normal) Management Discussion w/another healthcare provider: Hospitalist Treatment and Re-Evaluation :: Patient is presently receiving his third aerosol. Patient is no longer retracting. Patient is no longer diaphoretic. Heart rate is in the 60s. Respiratory rate is 20. He has some fine crackles noted at the base. There are some scattered intermittent rhonchi noted on expiration. He is moving more air. He is coughing up colored sputum. I was informed by patient's nurse at 1605 the patient is requesting pain medicine. He was given pain medicine yesterday because he had blunt trauma to his toe. Since he has a contusion it is not appropriate to treat this with IV morphine. Patient was reassessed at 1616. He still has hoarse voice. He has rhonchi wheezing throughout. He is moving more air. He is worse than yesterday. He is coughing up thick beige-colored sputum. The fact that he returned he is doing worse than yesterday will call hospitalist for admission. Discharge Plan Dx/Rx/DC Orders Clinical Impression: Acute exacerbation of chronic obstructive pulmonary disease, Medical non-compliance, Acute bronchospasm, Acute exacerbation of chronic bronchitis, Prerenal azotemia, Anemia in chronic illness, Chronic hypoxemic respiratory failure Disposition Disposition: Acute Care Hospital [facility]
[2023-09-22] MEDS: Albuterol 2.5 MG/3 ML VIAL.NEB. INHALATION ×2 (15:12→15:38)
[2023-09-22] MEDS: Ipratropium/Albuterol Sulfate 3 ML AMPUL.NEB INHALATION (15:12)
[2023-09-22 15:32] LABS: Absolute Lymphocyte Count 0.65 X10^3/uL (0.83-4.51); Absolute Neutrophil Count 9.6 X10^3/uL (2.0-7.7); Basophil# 0.02 X10^3/uL; Basophil% 0.2 % (0-1); Eosinophil# 0.32 X10^3/uL; Eosinophils% 2.8 % (0-5); Hematocrit 33.3 % (40-54); Hemoglobin 10.9 g/dL (13.0-16.5); Lymphocyte # 0.65 X10^3/ul (0.83-4.51); Lymphocyte % 5.6 % (19-41); Mean Corp Hgb Conc 32.7 g/dL (32-36); Mean Corpuscular Hgb 31.9 pg (27.0-32.0); Mean Corpuscular Volume 97.4 fL (80-94); Mean Platelet Vol. 9.3 fl (6.2-12.0); Monocyte# 0.92 X10^3/uL; NRBC Flagged by Analyzer 0 % (0-5); Neutrophil # 9.57 X10^3/uL (2.7-7.7); Neutrophil % 82.6 % (47-70); Platelet Count 451 K/mm3 (150-450); RBC Distribution Width CV 14.9 % (11.6-14.6); RBC Distribution Width SD 53.7 fl (35.1-43.9); Red Blood Count 3.42 M/mm3 (4.6-6.2); White Blood Count 11.6 K/mm3 (4.4-11.0)
[2023-09-22 15:32] LABS: Base Excess 10 mmol/L (-2 to +2); Bicarbonate 33.7 mmol/L (22-26); Blood Gas Specimen Type ART; Mode Not entered; O2 Delivery Device Cannula; PO2 91 mmHG (75-100); SITE R Brach; SO2 98 % (95-99); Total Carbon Dioxide 35 mmol/L; pCO2 44.2 mmHg (35-45); pH 7.49 (7.35-7.45)
--- NOTE | 2023-09-22 15:34 | RAD_ITS ---
STUDY: XR Chest 2 Views 09/22/2023 3:31 PM REASON FOR EXAM: Male, 63 years old. productive cough, wheezing COMPARISON: Study done yesterday TECHNIQUE: XR Chest 2 Views FINDINGS: There is no demonstrated pleural abnormality. Normal heart size. Normal mediastinum. Normal suyapa. Prominent appearing increased interstitial lung markings. Normal visualized pulmonary arteries. There is atherosclerotic calcification of the aortic arch with tortuosity. There are diffuse degenerative changes of the visualized thoracic spine. There is degenerative osteoarthritis of the bilateral shoulders. There are no acute findings of the upper abdomen. RAD/Chest PA and Lateral IMPRESSION: There are no acute findings. Electronically Signed: Jad Albarado MD at 16:17 EDT ,
[2023-09-22 15:49] LABS: ALB/GLOB Ratio 0.7 RATIO (0.9-2.4); AST(SGOT) 17 U/L (15-37); Alanine Aminotransfer ALT/SGPT 26 U/L (16-61); Albumin, Serum 2.6 g/dL (3.2-5.0); Alkaline Phosphatase 93 U/L (45-117); Anion Gap 4 (5-15); BUN 26 mg/dL (7-18); BUN/Creat Ratio 46.8 RATIO (10-20); Calcium,Total 9.2 mg/dL (8.5-10.1); Chloride 93 mmol/L (98-107); Creatinine, Serum 0.56 mg/dL (0.70-1.30); EST Glomerular Filtration Rate 157 mL/min (>60); Est Glom Filt Rate - Afr Amer 190 mL/min (>60); Estimated Creatinine Clearance 83.33 ml/min; Globulin 3.6 g/dL (2.2-4.2); Glucose 106 mg/dL (74-106); Potassium 3.9 mmol/L (3.5-5.1); Protein, Total 6.2 g/dL (6.4-8.2); Sodium Level 132 mmol/L (136-145)
[2023-09-22 15:51] LABS: Lactic Acid 0.5 mmol/L (0.4-1.9)
[2023-09-22] MEDS: Doxycycline 100 MG CAPSULE GT (16:30)
[2023-09-22] MEDS: Morphine 4 MG/ML Syringe 2 MG IV (16:30)
[2023-09-22] MEDS: MethylPREDNISolone 125 MG/2 ML Vial 60 MG IV ×2 (16:31→21:42)
--- NOTE | 2023-09-22 17:25 | PCM.HP.STD ---
[facility] - General General Date of Admission: 09/22/23 Date of Service: 09/22/23 Chief Complaint: SOB and Cough After Eating. HPI Narrative CAITIE JIN, is a 63 M with a past medical history of ongoing tobacco abuse; with no previous diagnosis of COPD, chronic hypoxic respiratory failure on 6L NC, essential hypertension, history of NSTEMI-II due to AE COPD and Influenza A (07/2023), history of head and neck cancer; status post radiation with subsequent oropharyngeal dysphagia and recent history of aspiration pneumonia with chronic dysphagia admitted here from August 29, 2023 to September 02, 2023; s/p PEG-tube for severe protein calorie malnutrition and a chronic history of avoiding medical attention with medical noncompliance with repeat admission form September 16, 2023 to September 19, 2023 for the same reason with patient repeatedly aspirating when he has oral intake with sr instructions to be NPO who re-presents to [facility] ER complaining of worsening SOB and cough after eating. Mr. Jin reports his symptoms began earlier this AM when he was eating something for breakfast when he suddenly aspirated and became SOB with a moist cough productive of copious beige sputum. He admits his symptoms are similar to his previous recent admissions for acute exacerbation of COPD in the setting of ongoing tobacco abuse due to recurrent aspiration pneumonia due to dysphagia with previous head and neck cancer; status post PEG tube complicated by chronic hypoxic respiratory failure and generalized weakness with ambulatory dysfunction with the patient leaving hospital only to be serially readmitted and he was then admitted to the general medical floor for ongoing care for status expected to be greater than 48 hours. [facility] Medical History Acute and chronic respiratory failure with hypoxia Aspiration pneumonitis Asthma Chronic hyponatremia COPD (chronic obstructive pulmonary disease) COPD exacerbation History of alcohol abuse History of GI bleed History of throat cancer History of tobacco use Hypertension Severe malnutrition Home Medications albuterol sulfate 2.5 mg/3 mL (0.083 %) solution for nebulization 2.5 mg (3 mL) inhalation Q2H PRN PRN Dyspnea, wheezing #0 mL 08/21/23 [Rx Last Taken 09/22/23] lactose-reduced food with fiber 0.06 gram-1.5 kcal/mL oral liquid (Jevity 1.5 Jason) 240 ml G-tube 6X/DAY #0 mL 08/21/23 [Rx Last Taken Unknown] multivitamin-iron 9 mg-folic acid 400 mcg-calcium and minerals tablet (Therapeutic-M) 1 tab feeding tube BREAKFAST #0 tabs 08/21/23 [Rx Last Taken 09/21/23] acetaminophen 325 mg tablet 650 mg feeding tube Q4H PRN PRN Fever, pain 1-03/0508/28/23 [History Last Taken Unknown] carvedilol 6.25 mg tablet 6.25 mg feeding tube BIDCM 30 days #60 tabs 09/19/23 [Rx Last Taken 09/22/23] guaifenesin 200 mg/5 mL oral liquid 600 mg (15 mL) feeding tube Q4H PRN congestion #118 mL 09/19/23 [Rx Last Taken Unknown] ipratropium 0.5 mg-albuterol 3 mg (2.5 mg base)/3 mL nebulization soln 3 ml inhalation Q4HWA.RT PRN SOB 1 month #180 mL 09/19/23 [Rx Last Taken 09/22/23] lansoprazole 15 mg capsule,delayed release 30 mg (2 x 15 mg) G-tube DAILY 1 month #60 caps 09/19/23 [Rx Last Taken 09/21/23] magnesium oxide 400 mg feeding tube DAILY 1 month #30 caps 09/19/23 [Rx Last Taken 09/21/23] melatonin 5 mg capsule 5 mg feeding tube DAILY 30 days #30 caps 09/19/23 [Rx Last Taken 09/21/23] metoclopramide HCl 10 mg tablet (Reglan) 10 mg feeding tube Q8 1 month #90 tabs 09/19/23 [Rx Last Taken 09/22/23] nicotine 14 mg/24 hr daily transdermal patch 14 mg transdermal DAILY #28 ea 09/19/23 [Rx Last Taken Unknown] prednisone 10 mg tablet 10 mg feeding tube DAILY #30 tabs 09/19/23 [Rx Last Taken 09/21/23] dexamethasone 0.5 mg/5 mL oral elixir 1 mg (10 mL) PO DAILY #50 mL 09/21/23 [Rx Last Taken Unknown] Allergy/AdvReac Type Severity Reaction Status Date / Time No Known Allergies Allergy Verified 08/13/23 21:05 Family History Mother No problems noted. Father No problems noted. Surgical History History of throat surgery Social History household members: none housing: correction current occupational status: employed Smoking Status: Current some day smoker tobacco type: cigarettes how long ago did patient quit smoking: Quit during most recent admission 08/11/23. alcohol intake: former details: Prior 5 shots hard liquor, several beers daily, none since 07/2023 admission substance use type: does not use ROS ROS Narrative Review of systems: General: Patient denies fevers or chills. HENT: Denies headache, denies stuffy nose, denies sore throat EYES: Denies changes in vision or discharge from eyes. Resp: Patient admits to cough, wheezing and shortness of breath at rest as per HPI. Cardiac: Denies chest pain, palpitations or heart racing. GI: Denies abdominal pain, denies changes in bowel, denies nausea or vomiting. : Denies changes in urination Extremity: Denies swelling Musculoskeletal: Patient denies arthralgias or myalgias. Neuro: Patient denies headache, paresthesias or focal neurologic weakness. Heme: Denies any bleeding or bruising Skin: Denies rashes Psychiatric: No complaints voiced related uncontrolled depression or anxiety. Endocrine: No polyuria, polydipsia or polyphagia. The rest of the 14 point ROS was negative except for positives in HPI. Vital Signs Vital Signs Vital Signs: 09/22/23 14:32 09/22/23 14:32 09/22/23 14:44 Temperature 98.2 F 98.2 F Temperature Source Oral Oral Pulse Rate 71 68 Respiratory Rate 24 H 27 H Respiratory Effort Non-Labored Short of Breath Respiratory Depth Normal Respiratory Pattern Normal Blood Pressure 140/104 H 140/104 H Blood Pressure Mean 116 116 Pulse Ox 94 99 Oxygen Delivery Method Nasal Cannula Nasal Cannula Nasal Cannula Oxygen Flow Rate (L/min) 6 6 6 09/22/23 15:12 09/22/23 15:12 09/22/23 14:38 Temperature 98.0 F Temperature Source Temporal Pulse Rate 76 78 Respiratory Rate 18 20 H Respiratory Effort Respiratory Depth Respiratory Pattern Blood Pressure 141/94 H Blood Pressure Mean 109 Pulse Ox 93 100 Oxygen Delivery Method Nasal Cannula Nasal Cannula Oxygen Flow Rate (L/min) 6 6 09/22/23 15:38 09/22/23 16:28 09/22/23 16:41 Temperature 97.8 F 98.9 F 98.9 F Temperature Source Temporal Temporal Pulse Rate 65 66 66 Respiratory Rate 19 H 20 H 20 H Respiratory Effort Respiratory Depth Respiratory Pattern Blood Pressure 143/83 H 141/82 H 141/82 H Blood Pressure Mean 103 101 101 Pulse Ox 91 90 90 Oxygen Delivery Method Nasal Cannula Nasal Cannula Oxygen Flow Rate (L/min) 6 2 09/22/23 16:43 Temperature 98.9 F Temperature Source Temporal Pulse Rate 66 Respiratory Rate 20 H Respiratory Effort Respiratory Depth Respiratory Pattern Blood Pressure 141/82 H Blood Pressure Mean 101 Pulse Ox 90 Oxygen Delivery Method Nasal Cannula Oxygen Flow Rate (L/min) 6 Weight Weight: 141 lb 1.533 oz Body Mass Index (BMI) 18.1 Physical Exam Const alert, oriented x3 and no apparent distress Constitutional Narrative: Patient appears older than his stated age and chronically ill. General Appearance: cooperative HEENT normocephalic, head/scalp atraumatic and hearing grossly normal bilaterally HEENT Narrative: Mucous membranes dry. Eyes PERRL and EOMs intact bilaterally Neck no lymphadenopathy and supple Resp Resp Narrative: Coarse rhonchi with diminished breath sounds throughout and scattered wheezes. Auscultation: rhonchi and wheezes Cardio regular rate and regular rhythm GI normal to inspection, nondistended, normoactive bowel sounds, soft to palpation, non-tender and non-distended Extremity normal to inspection and full ROM Skin Skin Narrative: Patient has no evidence of abscess, jaundice or rash. Neuro oriented x3, CN's II-XII intact bilaterally, moves all extremities and no focal motor deficits Sensorium / Orientation: awake, alert, oriented to person, oriented to place and oriented to time Speech: speech normal Motor Exam: strength 5/5 throughout Psych affect normal Results Medical Records Data Attestation: I reviewed the patient's medical records Lab / Micro Data Attestation: I reviewed the patient's lab results. 09/22/23 15:20 09/22/23 15:20 Labs: Laboratory Results - last 24 hr 09/22/23 15:20: WBC 11.6 H, RBC 3.42 L, Hgb 10.9 L, Hct 33.3 L, MCV 97.4 H, MCH 31.9, MCHC 32.7, RDW Std Deviation 53.7 H, RDW Coeff of Tony 14.9 H, Plt Count 451 H, MPV 9.3, Immature Gran % (Auto) 0.800, Neut % (Auto) 82.6 H, Lymph % (Auto) 5.6 L, [place] % (Auto) 8.0, Eos % (Auto) 2.8, Baso % (Auto) 0.2, Absolute Neuts (auto) 9.6 H, Absolute Lymphs (auto) 0.65 L, Nucleated RBC % 0, Sodium 132 L, Potassium 3.9, Chloride 93 L, Carbon Dioxide 35.0 H, Anion Gap 4 L, BUN 26 H, Creatinine 0.56 L, Estim Creat Clear Calc 83.33, Est GFR (MDRD) Af Amer 190, Est GFR (MDRD) Non-Af 157, BUN/Creatinine Ratio 46.8 H, Glucose 106, Lactic Acid 0.5, Calcium 9.2, Total Bilirubin 0.40, AST 17, ALT 26, Alkaline Phosphatase 93, Total Protein 6.2 L, Albumin 2.6 L, Globulin 3.6, Albumin/Globulin Ratio 0.7 L ABG Data ABG results: ABG 09/22/23 15:27 Specimen Type ART Sample Site R Brach pH 7.49 H Bicarbonate Actual 33.7 H Total CO2 35 Base Excess 10 H O2 Saturation 98 O2 % 6.0 ABG pCO2 44.2 ABG pO2 91 O2 Delivery Device Cannula Vent Mode Not entered Imaging Radiology Impression Chest X-Ray 09/22/23 15:34 IMPRESSION: There are no acute findings. Electronically Signed: Jad Albarado MD at 16:17 EDT , Assessment & Plan Assessment/Plan (1) Acute exacerbation of chronic obstructive pulmonary disease: (2) Recurrent aspiration events: (3) Chronic respiratory failure with hypoxia and hypercapnia: (4) Medical non-compliance: (5) Generalized weakness: (6) Ambulatory dysfunction: PLAN: Plan 1. Acute exacerbation of COPD in the setting of ongoing tobacco abuse - Admit to general medical floor. Continue IV Zosyn and also start IV Solu-Medrol with scheduled and as needed nebulizers. Tobacco cessation will once again be strongly encouraged with nicotine patch offered to control cravings. 2. Recent aspiration event with clinical evidence of [id number] respiratory insufficiency with patient saturating 84% in spite of 6 L nasal cannula complicating #1 -Continue broad-spectrum antibiotics with steroids and decongestants. Wean additional supplemental oxygen back to baseline levels as tolerated. 3. Recent history of aspiration pneumonia with chronic dysphagia admitted here from August 29, 2023 to September 02, 2023 and September 16, 2023 to September 19, 2023; s/p PEG-tube and a chronic history of avoiding medical attention with medical noncompliance compounding #1 & #2 - Noted. This patient is resistant to all sound reasoning as he continues to try to eat things orally when told not to in spite of multiple admissions. 4. Generalized weakness with ambulatory dysfunction arising from #1 to #3 - PT/OT case management consult and treat at this patient will likely require ECF placement due to his inability to care for himself at home with help appreciated in advance. 5. Essential hypertension - Resume home regimen plus give as needed hydralazine for systolic blood pressure greater than 160 mmHg. 6. History of NSTEMI-II due to AE COPD and Influenza A (07/2023) - Noted. 7. DVT prophylaxis - Lovenox 40 mg sq daily. Total time: Approximately 75 minutes. Update: It is come to my attention through the ER physician that this patient is requesting ice chips and inducing recurrent aspiration events because he has a court date that keeps getting pushed back. He was apparently found with a crack pipe and has a forest fire officer and this pattern of serial readmission seems to have a secondary gain of not going to snf. This patient is not appropriate for snf as he is to chronically ill and on 6 L nasal cannula at baseline so hopefully he can be referred to a correction to break this pattern of serial readmission. In any case, avoid ALL oral intake including ice chips so this patient can go to court and see the color laboratory technician JO. Charges/Coding Visit Charges Inpatient E&M: 86357 Init Hosp L3
--- NOTE | 2023-09-22 18:46 | ED.RN ---
[facility] report sent and pt ok for floor.
[2023-09-22] MEDS: Jevity 1.5. 1,000 ML Bottle 240 ML GT (21:40)
[2023-09-22] MEDS: Lactobacillis Acidophilus 2 CAP PO (21:42)
[2023-09-22] MEDS: MELATONIN 10 MG TABLET 5 MG NG (21:42)
[2023-09-22] MEDS: Metoclopramide 10 MG/10 ML UDC NG (21:42)
[2023-09-22] MEDS: Piperacil/Tazobactam 3.375 GM in 0.9% Normal Saline (50mL MB+) 50 ML IV (21:43)
--- NOTE | 2023-09-22 22:00 | NURSING ---
Pt continuously hitting call light and asking for ice chips, pt informed by this RN, BODY DESIGNER and MS electrical discharge machine operator that he is strict NPO per Dr. Walters and Dr. Chauhan. Pt verbally aggressive and demeaning to staff. This RN agreed to confirm strict NPO w/ primary care sales representative hospitalist as pt is insistent that Dr. Mcadams said he could have a few ice chips
--- NOTE | 2023-09-23 00:11 | NURSING ---
0000- this RN messaged Dr. Chauhan to confirm strict NPO status as pt insistent he is allowed to have ice chips. Dr. Chauhan clearly states in text pt is not to have anything by mouth as he is known to aspirate.
[2023-09-23] MEDS: Acetaminophen 325 MG Tablet 650 MG PO ×3 (05:04→14:48)
[2023-09-23] MEDS: Metoclopramide 10 MG/10 ML UDC NG ×3 (05:04→23:01)
[2023-09-23] MEDS: Piperacil/Tazobactam 3.375 GM in 0.9% Normal Saline (50mL MB+) 50 ML IV ×3 (05:04→23:02)
[2023-09-23] MEDS: Jevity 1.5. 1,000 ML Bottle 240 ML GT ×6 (05:05→23:03)
[2023-09-23] MEDS: Multivitamins,Ther W-Minerals Tablet 1 TABLET NG (08:59)
[2023-09-23] MEDS: Lactobacillis Acidophilus 2 CAP PO ×2 (08:59→23:02)
[2023-09-23] MEDS: Carvedilol 6.25 MG Tablet NG ×2 (08:59→16:47)
[2023-09-23] MEDS: Lansoprazole 15 MG Capsule.DR 30 MG GT (08:59)
[2023-09-23] MEDS: 0.9% Saline Lock 10 ML Syringe IV (09:01)
[2023-09-23] MEDS: MethylPREDNISolone 125 MG/2 ML Vial 60 MG IV ×2 (09:01→23:01)
[2023-09-23] MEDS: guaiFENesin 10 ML UDC (200MG/10ML) 30 ML NG (09:07)
[2023-09-23] MEDS: MAGNESIUM OXIDE 400 MG TABLET NG (09:08)
--- NOTE | 2023-09-23 09:18 | PN.HOSP_ITS ---
Reason for Visit Reason for Visit: Diagnoses Chronic obstructive pulmonary disease with (acute) exacerbation (09/22/23) Chronic respiratory failure with hypoxia (09/22/23) Chronic respiratory failure with hypercapnia (09/22/23) Difficulty in walking, not elsewhere classified (09/22/23) Weakness (09/22/23) Patient's noncompliance with other medical treatment and regimen due to unspecified reason (09/22/23) Objective Data Objective Data Vital Signs: Vital Signs Temp Pulse Resp BP Pulse Ox O2 Del Method O2 Flow Rate 97.6 F L 81 18 136/102 H 94 Nasal Cannula 6 09/22/23 22:00 09/22/23 22:00 09/22/23 22:00 09/22/23 22:00 09/22/23 22:00 09/23/23 08:52 09/23/23 08:52 Oxygen Flow Rate (L/min) 6 Oxygen Delivery Method Nasal Cannula Weight: 126 lb 12.253 oz Body Mass Index (BMI) 16.2 Intake & Output: Intake and Output for Last 24 Hours 09/21/23 09/22/23 09/23/23 23:59 23:59 23:59 Intake Total 270 / 270 590 / 590 Output Total 450 / 450 Balance 270 / 270 140 / 140 Lab / Micro Data 09/22/23 15:20 09/22/23 15:20 Labs: Laboratory Results - last 24 hr 09/22/23 15:20: WBC 11.6 H, RBC 3.42 L, Hgb 10.9 L, Hct 33.3 L, MCV 97.4 H, MCH 31.9, MCHC 32.7, RDW Std Deviation 53.7 H, RDW Coeff of Tony 14.9 H, Plt Count 451 H, MPV 9.3, Immature Gran % (Auto) 0.800, Neut % (Auto) 82.6 H, Lymph % (Auto) 5.6 L, [place] % (Auto) 8.0, Eos % (Auto) 2.8, Baso % (Auto) 0.2, Absolute Neuts (auto) 9.6 H, Absolute Lymphs (auto) 0.65 L, Nucleated RBC % 0, Sodium 132 L, Potassium 3.9, Chloride 93 L, Carbon Dioxide 35.0 H, Anion Gap 4 L, BUN 26 H, Creatinine 0.56 L, Estim Creat Clear Calc 83.33, Est GFR (MDRD) Af Amer 190, Est GFR (MDRD) Non-Af 157, BUN/Creatinine Ratio 46.8 H, Glucose 106, Lactic Acid 0.5, Calcium 9.2, Total Bilirubin 0.40, AST 17, ALT 26, Alkaline Phosphatase 93, Total Protein 6.2 L, Albumin 2.6 L, Globulin 3.6, Albumin/Globulin Ratio 0.7 L ABG Data ABG results: ABG 09/22/23 15:27 Specimen Type ART Sample Site R Brach pH 7.49 H Bicarbonate Actual 33.7 H Total CO2 35 Base Excess 10 H O2 Saturation 98 O2 % 6.0 ABG pCO2 44.2 ABG pO2 91 O2 Delivery Device Cannula Vent Mode Not entered Radiography Diagnostic Testing: Radiology Impression Chest X-Ray 09/22/23 15:34 IMPRESSION: There are no acute findings. Electronically Signed: Jad Albarado MD at 16:17 EDT Reading Location ID and State: [facility] / [place] , Service support , Physical Exam Narrative Patient came to ED on 09/20 and 09/21. Patient states major problem is gets very short of breath dyspnea even on minimal to mild exertion like walking and cannot do any work. He said he cannot breathe even on oxygen while walking. No chest pain. Physical exam General: Alert, Oriented x3, Cooperative HEENT: Atraumatic, PERRLA, EOMI, Normocephalic Oral:No Gingival or Mucosal Lesions/ Ulcerations. Oral mucosa dry Neck: Supple, No JVD, Negative Carotid Bruits Chest wall/Lungs: Air entry severely diminished in bilateral lung bases. Bilateral expiratory rhonchi. Cardiovascular: Regular rate, Regular Rhythm, Normal S1, Normal S2, No M/G/R Abdomen: Bowel Sounds Present, Soft, Non Tender, Non-Distended : No dysuria. No renal angle tenderness. No suprapubic tenderness. Extremities: No edema, Capillary Refill Less than 3 Seconds Skin: No rashes, No breakdown Musculoskeletal: No Tenderness to Palpation of Joints or Extremities Neurological: Cranial nerves II-XII grossly intact, DTR 2+/4. No acute focal neurological deficit. Psych/Mental Status: Flat affect. Assessment & Plan Assessment/Plan (1) Acute exacerbation of chronic obstructive pulmonary disease: (2) Recurrent aspiration events: (3) Chronic respiratory failure with hypoxia and hypercapnia: (4) Medical non-compliance: (5) Generalized weakness: (6) Ambulatory dysfunction: PLAN: Plan 63-year-old gentleman was recently admitted between 09/15-09/19/23 on Trilogy ventilator and then came to ED on repeated days on 09/20 and 09/21 for shortness of breath for 3 to 4 days, increased cough and sputum production, wheezing, negative for orthopnea/PND on 6 L of oxygen. 1. Acute exacerbation of COPD in the setting of ongoing tobacco abuse - Admit to general medical floor. Continue IV Zosyn and also start IV Solu-Medrol with scheduled and as needed nebulizers. Tobacco cessation will once again be strongly encouraged with nicotine patch offered to control cravings. 09/22: Patient stated that he ate sandwich at home although he was told strict n.p.o. given his history of aspiration/aspiration pneumonia with throat cancer. Patient also stated that he smokes cigarettes. At time of last discharge, patient will require nebulization equipment and ventilator that was given. Fito fry, he said he does not have DuoNeb medication. DuoNeb prescription sent to pharmacy. With multiple readmission, nonadherence and running out of further management recommendations, client technical support associate/lace pinner consulted for further. Discussed with client technical support associate and discussed about previous hospital stay and new diagnosis. Patient is still eats ice chips. Chest x-ray individually reviewed and it is chronic changes of COPD but no obvious infiltrate. 2. Recent aspiration event with clinical evidence of [id number] respiratory insufficiency with patient saturating 84% in spite of 6 L nasal cannula complicating -Continue broad-spectrum antibiotics with steroids and decongestants. Wean additional supplemental oxygen back to baseline levels as tolerated. 3. Recent history of aspiration pneumonia with chronic dysphagia admitted here from August 29, 2023 to September 02, 2023 and September 16, 2023 to September 19, 2023; s/p PEG-tube and a chronic history of avoiding medical attention with medical noncompliance compounding #1 & #2 - Noted. This patient is resistant to all sound reasoning as he continues to try to eat things orally when told not to in spite of multiple admissions. 4. Generalized weakness with ambulatory dysfunction arising from #1 to #3 - PT/OT case management consult and treat at this patient will likely require ECF placement due to his inability to care for himself at home with help appreciated in advance. 5. Essential hypertension - Resume home regimen plus give as needed hydralazine for systolic blood pressure greater than 160 mmHg. 6. History of NSTEMI-II due to AE COPD and Influenza A (07/2023) - Noted. 7. DVT prophylaxis - Lovenox 40 mg sq daily. Total time of the visit including total time spent in counseling or coordination of care, (more than 50% of the total time, spent in obtaining medical information from nurses and other ancillary care providers,explaining to the patient about labs, imaging, diagnosis and management of active complex medical conditions), lace pinner nursing staff, review of labs and imaging is 40 minutes. Charges/Coding Visit Charges Inpatient E&M: 93971 Subs Hosp L3
[2023-09-23 09:20] VITALS: PULSE 66; RESP 16
[2023-09-23] MEDS: Ipratropium/Albuterol Sulfate 3 ML AMPUL.NEB INHALATION (09:27)
--- NOTE | 2023-09-23 10:16 | CON.PCM.CC_ITS ---
Assessment & Plan Assessment/Plan (1) Acute and chronic respiratory failure with hypoxia: PLAN: Plan RECOMMENDATIONS: 1. Supplemental oxygen for saturations greater than 90%. 2. Continue bronchodilators and steroids. 3. Okay to discontinue antibiotics from my perspective. 4. Smoking cessation is recommended. 5. Maintain aspiration precautions and n.p.o. status. 6. Obtain speech therapy evaluation once again. 7. The patient can follow-up in the pulmonary medicine clinic after discharge if he so chooses for further medical optimization. IMPRESSIONS: 1. Acute on chronic hypoxemic respiratory failure Most likely secondary to underlying COPD in a state of exacerbation due to a longstanding history of medical noncompliance along with concern for recurrent aspiration in the setting of dysphagia due to a history of head neck cancer. The patient has not been compliant with prescribed medical therapy after his discharges from the hospital, which is ultimately what leads to his hospital readmission. The patient does continue to smoke cigarettes daily and utilizes 6 L/min of supplemental oxygen at his baseline. There does not appear to be a focal infiltrate or concern for infection on chest imaging. Therefore, an tibiotics can be discontinued from my perspective. It is reasonable to continue scheduled bronchodilators and steroids. Ultimately, the patient needs to be reevaluated by speech therapy. He will be maintained n.p.o. status for now, pending reevaluation. The patient is at high risk for future hospitalizations if he does not remain compliant with prescribed medical therapy. 2. Severe protein calorie malnutrition/history of anemia/history of tobacco dependency/history of throat CA/hypertension/hyperlipidemia Complicates care, management, recovery and prognosis. Continue home medications as indicated. This note was generated with [employer] dictation software. It may contain incorrect words, spelling, and punctuation that were not noted in checking the note before signing. HPI Consult Data Date of Consult: 09/23/23 HPI Narrative Reason for Consultation: Acute on chronic respiratory failure HPI Narrative: The patient is a 63-year-old male, with a history as outlined below, who presented once again to the emergency department on September 21 with shortness of breath. 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 It is unclear as to whether he has ever had PFTs completed in the past. However, there is documentation that he has a history of COPD and chronic hypoxemic respiratory failure with a baseline oxygen requirement of 6 L/min. The patient's medical history is significant for throat cancer, severe protein calorie malnutrition and frequent hospitalizations for COPD exacerbations related to aspiration. The patient has a an extensive history of medical noncompliance in the setting of severe dysphagia and continued p.o. intake, despite recommendations by speech therapy to the contrary. The patient was last discharged from the hospital on September 18 after having been admitted for 3 days and treated for a COPD exacerbation, which was felt to be the consequence of aspiration once again. The patient was ultimately discharged home on prednisone and DuoNebs. Nevertheless, the patient reported to me that, although he has a nebulizer, he was never provided with any bronchodilators medi cations. During my interaction with the patient this morning, he was quite argumentative, stating that the reason he presents to the hospital is because he is short of breath and that his dyspnea is unrelated to his frequent aspiration events. On presentation to the emergency department, the patient was documented to be afebrile and hemodynamically stable. The patient was tachypneic but otherwise maintaining appropriate oxygen saturations on 6 L/min via nasal cannula. Laboratory evaluation revealed a white blood cell count of 11,000. Chemistry profile was notable for a bicarbonate of 35 and normal creatinine. Chest x-ray demonstrated no acute cardiopulmonary process. The patient was subsequently placed on antimicrobials, bronchodilators and steroids. He was admitted to the medical surgical floor for further management. [facility] Medical History (Updated 09/23/23 @ 11:[address] Yann Amaya, DO) Acute and chronic respiratory failure with hypoxia Aspiration pneumonitis Asthma Chronic hyponatremia COPD (chronic obstructive pulmonary disease) COPD exacerbation History of alcohol abuse History of GI bleed History of throat cancer History of tobacco use Hypertension Severe malnutrition Home Medications albuterol sulfate 2.5 mg/3 mL (0.083 %) solution for nebulization 2.5 mg (3 mL) inhalation Q2H PRN PRN Dyspnea, wheezing #0 mL 08/21/23 [Rx Last Taken 09/22/23] lactose-reduced food with fiber 0.06 gram-1.5 kcal/mL oral liquid (Jevity 1.5 Jason) 240 ml G-tube 6X/DAY #0 mL 08/21/23 [Rx Last Taken Unknown] multivitamin-iron 9 mg-folic acid 400 mcg-calcium and minerals tablet ( Therapeutic-M) 1 tab feeding tube BREAKFAST #0 tabs 08/21/23 [Rx Last Taken 09/21/23] acetaminophen 325 mg tablet 650 mg feeding tube Q4H PRN PRN Fever, pain 1-03/0508/28/23 [History Last Taken Unknown] carvedilol 6.25 mg tablet 6.25 mg feeding tube BIDCM 30 days #60 tabs 09/19/23 [Rx Last Taken 09/22/23] guaifenesin 200 mg/5 mL oral liquid 600 mg (15 mL) feeding tube Q4H PRN congestion #118 mL 09/19/23 [Rx Last Taken Unknown] lansoprazole 15 mg capsule,delayed release 30 mg (2 x 15 mg) G-tube DAILY 1 month #60 caps 09/19/23 [Rx Last Taken 09/21/23] magnesium oxide 400 mg feeding tube DAILY 1 month #30 caps 09/19/23 [Rx Last Taken 09/21/23] melatonin 5 mg capsule 5 mg feeding tube DAILY 30 days #30 caps 09/19/23 [Rx Last Taken 09/21/23] metoclopramide HCl 10 mg tablet (Reglan) 10 mg feeding tube Q8 1 month #90 tabs 09/19/23 [Rx Last Taken 09/22/23] nicotine 14 mg/24 hr daily transdermal patch 14 mg transdermal DAILY #28 ea 09/19/23 [Rx Last Taken Unknown] prednisone 10 mg tablet 10 mg feeding tube DAILY #30 tabs 09/19/23 [Rx Last Taken 09/21/23] dexamethasone 0.5 mg/5 mL oral elixir 1 mg (10 mL) PO DAILY #50 mL 09/21/23 [Rx Last Taken Unknown] ipratropium 0.5 mg-albuterol 3 mg (2.5 mg base)/3 mL nebulization soln 3 ml inhalation Q4HWA.RT PRN SOB 1 month #180 mL 09/23/23 [Rx Last Taken Unknown] Allergy/AdvReac Type Severity Reaction Status Date / Time No Known Allergies Allergy Verified 08/13/23 21:05 Family History Mother No problems noted. Father No problems noted. Surgical History History of throat surgery Social History household members: none housing: long term current occupational status: employed Smoking Status: Current some day smoker tobacco type: cigarettes how long ago did patient quit smoking: Quit during most recent admission 08/11/23. alcohol intake: former details: Prior 5 shots hard liquor, several beers daily, none since 07/2023 admission substance use type: does not use ROS ROS Narrative 10 systems were reviewed with pertinent positives as noted in the HPI above. Physical Exam Const alert and no apparent distress Constitutional Narrative: Frail and malnourished in appearance. General Appearance: cooperative HEENT normocephalic and head/scalp atraumatic Eyes PERRL and EOMs intact bilaterally Neck supple General: trachea midline Resp normal respiratory effort Auscultation: rhonchi and diminished lung sounds Cardio regular rate and regular rhythm GI normal to inspection, nondistended, normoactive bowel sounds Extremity no clubbing, cyanosis or edema Skin no rashes or lesions noted Neuro CN's II-XII intact bilaterally, moves all extremities and no focal motor deficits Psych cooperative and affect normal Lab / Micro Data 09/22/23 15:20 09/22/23 15:20 Labs: Laboratory Results - last 24 hr 09/22/23 15:20: WBC 11.6 H, RBC 3.42 L, Hgb 10.9 L, Hct 33.3 L, MCV 97.4 H, MCH 31.9, MCHC 32.7, RDW Std Deviation 53.7 H, RDW Coeff of Tony 14.9 H, Plt Count 451 H, MPV 9.3, Immature Gran % (Auto) 0.800, Neut % (Auto) 82.6 H, Lymph % (Auto) 5.6 L, Summit % (Auto) 8.0, Eos % (Auto) 2.8, Baso % (Auto) 0.2, Absolute Neuts (auto) 9.6 H, Absolute Lymphs (auto) 0.65 L, Nucleated RBC % 0, Sodium 132 L, Potassium 3.9, Chloride 93 L, Carbon Dioxide 35.0 H, Anion Gap 4 L, BUN 26 H, Creatinine 0.56 L, Estim Creat Clear Calc 83.33, Est GFR (MDRD) Af Amer 190, Est GFR (MDRD) Non-Af 157, BUN/Creatinine Ratio 46.8 H, Glucose 106, Lactic Acid 0.5, Calcium 9.2, Total Bilirubin 0.40, AST 17, ALT 26, Alkaline Phosphatase 93, Total Protein 6.2 L, Albumin 2.6 L, Globulin 3.6, Albumin/Globulin Ratio 0.7 L ABG Data ABG results: ABG 09/22/23 15:27 Specimen Type ART Sample Site R Brach pH 7.49 H Bicarbonate Actual 33.7 H Total CO2 35 Base Excess 10 H O2 Saturation 98 O2 % 6.0 ABG pCO2 44.2 ABG pO2 91 O2 Delivery Device Cannula Vent Mode Not entered Imaging Radiology Impression Chest X-Ray 09/22/23 15:34 IMPRESSION: There are no acute findings. Electronically Signed: Jad Albarado MD at 16:17 EDT Reading Location ID and State: [facility] / [place] , Service support , Charges/Coding Visit Charges Inpatient E&M: 72008 Init Hosp L3
--- NOTE | 2023-09-23 11:45 | CASEMGMT ---
Addendum entered by Jennifer Jones 09/23/23 14:24: Pt screened with palliative care screening tool, met criteria. TORIN CHENG into pt room, discussed palliative care and pt agreeable. Order received, referral emailed to palliative. Addendum entered by Jennifer Jones 09/23/23 14:07: TC to [facility] retail pharmacy. 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 Referal sent to Y[facility], [facility], [facility], Lauren, Marlin, MICHELLE, Susan, Marcela, MABEL, [facility], [facility], , [facility], [facility]. Will await decision to accept. Original Note: TORIN CHENG Readmission Note Previous Admission: 09/16/23-09/19/23 Diagnosis: acute exac COPD and ongoing tobacco abuse DC Disposition: Home with [facility] Current Admission: Admitted 09/22/23 Current Diagnosis: acute exacerbation of COPD with recurrent aspiration Pt presented to ER on 09/22/23 after being seen and dc'd home on 09/20. Pt worse on second ER visit and therefore admitted. Per documentation, pt refused [facility] HHC that was set up from last admission. ER documentation stated pt was requesting admission for someone to do his TF. TORIN CHENG into pt room, pt states he needs help at home with chores. He states he thinks he has been assessed but there is no staffing for aides. Updated SW for AAOA referral if this has not been done. Pt states he did not decline HHC altogether, just that he declined therapy because he is so sob. Discussed how OT can help with energy conservation, pt states I've been through that before. Pt does want a nurse to come out and see him. He is agreeable to [facility] or whoever will come. Pt denies need for a list of options. Pt reports he was drinking water at home as well as eating part of a sandwich. Pt is aware of that he is supposed to be NPO. He states he knows what to do if he aspirates. Pt is not receptive to education regarding aspiration and how this effects his SOB. Pt states he did smoke one cigarette when home but removed his oxygen from his face when he does this. Pt reports he did not get his rx from the hospital admission but did get his rx from the ER which was albuterol inhaler. Pt reports he needs meds for his nebulizer. Pt has home oxygen with portability and NIV. Uses [facility]. Pt has not yet followed with PCP or made an appt. Pulm appt made for February. Pt is aware that an aide referral through his insurance for home chores takes time and will not be set up for dc this admission. Pt became agitated and used profanity when TORIN CHENG discussed dc options. Pt denies SNF. Pt requested that the foreign exchange position clerk of courts be contacted to be made aware that he is hospitalized. He states he missed a court date. LONI Higgins notified. DC Plan: Home with [facility] to Sandra at [facility], they will not accept pt back for care.
[2023-09-23] MEDS: Glycerin/Hypromellose/PEG400 15 ml Bottle 1 DRP EACH EYE ×2 (12:20→19:00)
--- NOTE | 2023-09-23 14:30 | CM.UR ---
Social Work SW met w/pt, spoke w/him about his court date, as he had told the CM he is missing court today. SW called the records clerk of courts, pt actually missed court on 09/11/23. We spoke about sending a letter to the court of all the dates he has been in the hospital, pt thought this would be helpful. SW wrote a letter for pt, pt signed and SW faxed to the courts for pt. Pt also asked if we can call his friend Sal[place] to help w/paying his phone bill. He states he tried to pay his phone bill but his bank card is not working, so he asked for a new card. SW will follow up w/pt's friend. MICHAEL Kunz
[2023-09-23 14:45] VITALS: BP 121/85; PULSE 80; RESP 18; TEMP 36.8; O2SAT 94
[2023-09-23] MEDS: 0.9% Normal Saline (250mL Bag) 250 ML 15 ML IV (14:49)
--- NOTE | 2023-09-23 15:19 | CASEMGMT ---
Social Work- LONI called Salinas Christiansen, listed on pt contacts, per pt request. LONI left a message for Salinas to call pt directly in his room to assist pt with paying his phone bill. CHANDRAKANT Henderson
--- NOTE | 2023-09-23 15:58 | CASEMGMT ---
Social Work- Pt states that he has a POA, [employer]. Pt reports that he does not have a living will. Pt reports he does not have ability to provide paperwork at this time, but declines additional information. CHANDRAKANT Henderson
--- NOTE | 2023-09-23 16:18 | CHAPLAIN ---
Type of Pastoral Visit _x__ Initial Visit ___ Follow-up Visit ___ On-call Visit ___ General Patient Visit ___ Spiritual Assessment ___ Family Conference ___ Bereavement ___ Rapid Response ___ Code Blue ___ Other (describe below) Pastoral Care Referral From _x__ Patient ___ Family ___ Nurse ___ Physician ___ Operations Lieutenant ___ Director Of Materials ___ Other (describe below) Sacrament/Intervention _x__ Active listening ___ Anointing ___ Religion ___ Bereavement ___ Communion _x__ Reena exploration ___ _x__ Life review _x__ Prayer ___ Reconciliation ___ Sacrament of Sick _x__ Supportive presence ___ Wedding ___ Other (describe below) Pastoral Comments patient called on the phone to request a visit; entered pt room and he was on the phone with his cell phone company trying to pay a bill; pt hung up the phone in disgust saying that they won't help me and I can't pay my bills without my phone; pt expresses frustration and feelings of being overwhelmed; pt states that he has no family living and that a couple of friends that he has are not answering his text messages so he is alone; pt says that his mobile home is a mess and he has no energy to clean it or care for his needs; pt has been to two different ECFs; pt said hospice has been recommended but he didn't get good care there; pt is referred to SW but he says that they have already talked with him; pt is asked about what is good in his life and to focus on that; pt is asked about reena and his relationship to God; pt agrees to prayer support; pt is expressive of gratitude for coming to visit him; pt has calmed down during the visit
[2023-09-23 19:48] VITALS: BP 116/87; PULSE 70; RESP 18; TEMP 36.6; O2SAT 96
[2023-09-23] MEDS: Acetaminophen 650 MG/20 ML UDC GT (19:58)
[2023-09-23 20:21] VITALS: PULSE 71; RESP 20
[2023-09-23] MEDS: Albuterol 2.5 MG/3 ML VIAL.NEB. INHALATION (20:21)
[2023-09-23] MEDS: MELATONIN 10 MG TABLET 5 MG NG (23:02)
[2023-09-24] VITALS (9 sets, daily range): BP systolic 134–169; BP diastolic 84–110; PULSE 65–86; RESP 14–20; TEMP 36.3–36.9; O2SAT 90–99
[2023-09-24] MEDS: Metoclopramide 10 MG/10 ML UDC NG ×3 (05:38→22:42)
[2023-09-24] MEDS: Jevity 1.5. 1,000 ML Bottle 240 ML GT ×6 (05:39→22:43)
[2023-09-24] MEDS: Piperacil/Tazobactam 3.375 GM in 0.9% Normal Saline (50mL MB+) 50 ML IV (05:39)
--- NOTE | 2023-09-24 09:31 | PCM.PN.HOSP ---
Reason for Visit Reason for Visit: Diagnoses Chronic obstructive pulmonary disease with (acute) exacerbation (09/22/23) Chronic respiratory failure with hypoxia (09/22/23) Chronic respiratory failure with hypercapnia (09/22/23) Acute and chronic respiratory failure with hypoxia (09/22/23) Difficulty in walking, not elsewhere classified (09/22/23) Weakness (09/22/23) Patient's noncompliance with other medical treatment and regimen due to unspecified reason (09/22/23) Objective Data Objective Data Vital Signs: Vital Signs Temp Pulse Resp BP Pulse Ox O2 Del Method O2 Flow Rate 98 F 71 18 164/90 H 92 Nasal Cannula 6 09/24/23 03:15 09/24/23 03:15 09/24/23 03:15 09/24/23 03:15 09/24/23 07:20 09/24/23 07:20 09/24/23 07:20 Oxygen Flow Rate (L/min) 6 Oxygen Delivery Method Nasal Cannula Weight: 126 lb 12.253 oz Body Mass Index (BMI) 16.2 Intake & Output: Intake and Output for Last 24 Hours 09/22/23 09/23/23 09/24/23 23:59 23:59 23:59 Intake Total 270 / 270 2080.25 / 2080.25 241 / 241 Output Total 1000 / 1000 500 / 500 Balance 270 / 270 1080.25 / 1080.25 -259 / -259 Medical Nutrition Assessment Dietitian: Malnutrition Criteria Met Start: 09/23/23 11:31 Freq: Status: Active Protocol: Document 09/23/23 11:31 SLA (Rec: 09/23/23 11:31 SLA Desktop) Nutrition Malnutrition Evidence of Malnutrition Exists Yes Malnutrition (severe): Chronic Evidenced By Suboptimal Energy Intake ( Severe),Weight Loss (Severe), Physical Changes (Severe) Intake Problem Inadequate Oral Intake Etiology related to dysphagia Signs/Symptoms as evidenced by NPO status and need for nutrition via PEG Status Active Problem Clinical Problem Chronic Disease or Condition Related Malnutrition Etiology related to inadequate po energy intake d/t head/neck cancer Signs/Symptoms as evidenced by NPO status and need for nutrition via PEG, 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 Status Active Problem Recommendation Dietitian Recommendations/Changes Rec continue Jevity 1.5: 240 ml 6x/day - will order 80 ml water flush before and after each bolus feeding 6x/day to provide ~ 2160 danii/ 91.8 gm pro/ 2054 ml fluid/ day Lab / Micro Data 09/22/23 15:20 09/22/23 15:20 Physical Exam Narrative Patient is stated that he still feels short of breath on walking/dyspnea on minimal to mild exertion. Physical exam General: Alert, Oriented x3, Cooperative HEENT: Atraumatic, PERRLA, EOMI, Normocephalic Oral:No Gingival or Mucosal Lesions/ Ulcerations. Oral mucosa moist. Neck: Supple, No JVD, Negative Carotid Bruits Chest wall/Lungs: Air entry severely diminished in bilateral lung bases. Bilateral expiratory rhonchi. Cardiovascular: Regular rate, Regular Rhythm, Normal S1, Normal S2, No M/G/R Abdomen: Bowel Sounds Present, Soft, Non Tender, Non-Distended : No dysuria. No renal angle tenderness. No suprapubic tenderness. Extremities: No edema, Capillary Refill Less than 3 Seconds Skin: No rashes, No breakdown Musculoskeletal: No Tenderness to Palpation of Joints or Extremities. ROM full and adequate Neurological: Cranial nerves II-XII grossly intact, DTR 2+/4. No acute focal neurological deficit. Psych/Mental Status: Flat affect. Assessment & Plan Assessment/Plan (1) Acute exacerbation of chronic obstructive pulmonary disease: (2) Recurrent aspiration events: (3) Chronic respiratory failure with hypoxia and hypercapnia: (4) Medical non-compliance: (5) Generalized weakness: (6) Ambulatory dysfunction: PLAN: Plan 63-year-old gentleman was recently admitted between 09/15-09/19/23 on Trilogy ventilator and then came to ED on repeated days on 09/20 and 09/21 for shortness of breath for 3 to 4 days, increased cough and sputum production, wheezing, negative for orthopnea/PND on 6 L of oxygen. 1. Acute exacerbation of COPD in the setting of ongoing tobacco abuse - Admit to general medical floor. Continue IV Zosyn and also start IV Solu-Medrol with scheduled and as needed nebulizers. Tobacco cessation will once again be strongly encouraged with nicotine patch offered to control cravings. 09/22: Patient stated that he ate sandwich at home although he was told strict n.p.o. given his history of aspiration/aspiration pneumonia with throat cancer. Patient also stated that he smokes cigarettes. At time of last discharge, patient will require nebulization equipment and ventilator that was given. Today, he said he does not have DuoNeb medication. DuoNeb prescription sent to pharmacy. With multiple readmission, nonadherence and running out of further management recommendations, director decision support/supervisor cellars consulted for further. Discussed with director decision support and discussed about previous hospital stay and new diagnosis. Patient is still eats ice chips. Chest x-ray individually reviewed and it is chronic changes of COPD but no obvious infiltrate. 09/23: Clinically patient still getting short of breath on walking. Home oxygen qualification test ordered. 2. Recent aspiration event with clinical evidence of [id number] respiratory insufficiency with patient saturating 84% in spite of 6 L nasal cannula complicating -Continue broad-spectrum antibiotics with steroids and decongestants. Wean additional supplemental oxygen back to baseline levels as tolerated. 09/23: Mobility Manager consult reviewed. Antibiotic discontinued. Chest x-ray did not show any pneumonic infiltrate. 3. Recent history of aspiration pneumonia with chronic dysphagia admitted here from August 29, 2023 to September 02, 2023 and September 16, 2023 to September 19, 2023; s/p PEG-tube and a chronic history of avoiding medical attention with medical noncompliance. This patient is resistant to all sound reasoning as he continues to try to eat things orally when told not to in spite of multiple admissions. 4. Generalized weakness with ambulatory dysfunction arising from #1 to #3 - PT/OT case management consult and treat at this patient will likely require ECF placement due to his inability to care for himself at home with help appreciated in advance. 5. Essential hypertension - Resume home regimen plus give as needed hydralazine for systolic blood pressure greater than 160 mmHg. 6. History of NSTEMI-II due to AE COPD and Influenza A (07/2023) - Noted. 7. DVT prophylaxis - Lovenox 40 mg sq daily. Charges/Coding Visit Charges Inpatient E&M: 53664 Subs Hosp L2
[2023-09-24] MEDS: Carvedilol 6.25 MG Tablet NG (09:55)
[2023-09-24] MEDS: Multivitamin/Minerals/Iron (9 mg/15 ml) Liquid GT (09:55)
[2023-09-24] MEDS: MAGNESIUM OXIDE 400 MG TABLET NG (09:55)
[2023-09-24] MEDS: Lansoprazole 15 MG Capsule.DR 30 MG GT (09:55)
[2023-09-24] MEDS: Lactobacillis Acidophilus 2 CAP PO ×2 (09:56→22:42)
[2023-09-24] MEDS: MethylPREDNISolone 125 MG/2 ML Vial 60 MG IV ×2 (10:10→22:42)
[2023-09-24] MEDS: 0.9% Saline Lock 10 ML Syringe IV (10:11)
[2023-09-24] MEDS: Bisacodyl 5 MG Tablet 10 MG PO (10:11)
[2023-09-24] MEDS: Acetaminophen 650 MG/20 ML UDC GT (10:27)
--- NOTE | 2023-09-24 10:48 | CASEMGMT ---
Social Work SW did call APS, spoke w/Basim. SW let her know that pt is here in the hospital, likely discharging today. She will follow up w/pt at home sometime his week. MICHAEL Kunz
--- NOTE | 2023-09-24 11:30 | CASEMGMT ---
Addendum entered by Shelby Key 09/24/23 13:10: Discussed ST option with pt, he declined needs for home ST. Original Note: All [facility] agencies declined referral accept [facility] and [facility]. Gave a verbal list to patient with these two options for C SN options, pt stated he didn't care who we went with. Sent message to [facility] letting them know they are AOC and will send discharge instructions when available.
--- NOTE | 2023-09-24 11:57 | CASEMGMT ---
Henri from Palliative care called and spoke with SW to schedule for Aliyah to meet with pt at his home on September 26 at 11:15am. Confirmed with pt this date and time will work, he agreed. Called palliative care, spoke with Hannah to confirm and added to pt DC plan.
[2023-09-24] MEDS: Glycerin/Hypromellose/PEG400 15 ml Bottle 1 DRP EACH EYE (14:11)
--- NOTE | 2023-09-24 15:53 | CASEMGMT ---
Updated hospitalist that pt does not need a change in prescription for oxygen. Plan to keep pt one more day. Updated [facility].
[2023-09-24] MEDS: Ipratropium/Albuterol Sulfate 3 ML AMPUL.NEB INHALATION (16:12)
[2023-09-24] MEDS: Carvedilol 12.5 MG Tablet NG (17:31)
[2023-09-24] MEDS: MELATONIN 10 MG TABLET 5 MG NG (22:43)
[2023-09-24] MEDS: Albuterol 2.5 MG/3 ML VIAL.NEB. INHALATION (23:12)
--- NOTE | 2023-09-25 02:07 | NURSING ---
RN PAIN MANAGEMENT saw patient drinking mouth wash. He said his mouth was very dry.
[2023-09-25 05:45] VITALS: BP 172/97; PULSE 84; RESP 18; TEMP 36.6; O2SAT 94
[2023-09-25] MEDS: Carvedilol 12.5 MG Tablet NG (05:55)
[2023-09-25] MEDS: Metoclopramide 10 MG/10 ML UDC NG (05:56)
[2023-09-25] MEDS: Jevity 1.5. 1,000 ML Bottle 240 ML GT ×3 (05:56→12:01)
[2023-09-25 06:37] LABS: Absolute Lymphocyte Count 0.34 X10^3/uL (0.83-4.51); Absolute Neutrophil Count 20.1 X10^3/uL (2.0-7.7); Basophil# 0.02 X10^3/uL; Basophil% 0.1 % (0-1); Hematocrit 35.7 % (40-54); Hemoglobin 11.7 g/dL (13.0-16.5); Lymphocyte # 0.34 X10^3/ul (0.83-4.51); Lymphocyte % 1.6 % (19-41); Mean Corp Hgb Conc 32.8 g/dL (32-36); Mean Corpuscular Hgb 31.8 pg (27.0-32.0); Mean Platelet Vol. 9.4 fl (6.2-12.0); Monocyte% 1.4 % (0-10); NRBC Flagged by Analyzer 0 % (0-5); Neutrophil # 20.05 X10^3/uL (2.7-7.7); Neutrophil % 96.1 % (47-70); POSITIVE DIFFERENTIAL YES; Platelet Count 530 K/mm3 (150-450); RBC Distribution Width CV 14.1 % (11.6-14.6); RBC Distribution Width SD 50.5 fl (35.1-43.9); Red Blood Count 3.68 M/mm3 (4.6-6.2); White Blood Count 20.9 K/mm3 (4.4-11.0)
[2023-09-25 07:01] LABS: Anion Gap 3 (5-15); BUN 20 mg/dL (7-18); BUN/Creat Ratio 39.2 RATIO (10-20); Calcium,Total 8.7 mg/dL (8.5-10.1); Chloride 95 mmol/L (98-107); Creatinine, Serum 0.51 mg/dL (0.70-1.30); Differential Comment SCANNED; Differential Indicated SCAN CRITERIA MET; EST Glomerular Filtration Rate 173 mL/min (>60); Est Glom Filt Rate - Afr Amer 210 mL/min (>60); Estimated Creatinine Clearance 74.87 ml/min; Glucose 123 mg/dL (74-106); Potassium 4.3 mmol/L (3.5-5.1); Sodium Level 133 mmol/L (136-145)
[2023-09-25 08:17] VITALS: O2SAT 93
[2023-09-25] MEDS: MethylPREDNISolone 125 MG/2 ML Vial 60 MG IV (09:23)
[2023-09-25] MEDS: Lactobacillis Acidophilus 2 CAP PO (09:23)
[2023-09-25] MEDS: Lansoprazole 15 MG Capsule.DR 30 MG GT (09:23)
[2023-09-25] MEDS: MAGNESIUM OXIDE 400 MG TABLET NG (09:23)
[2023-09-25] MEDS: Multivitamin/Minerals/Iron (9 mg/15 ml) Liquid GT (09:24)
[2023-09-25] MEDS: 0.9% Saline Lock 10 ML Syringe IV (09:24)
--- NOTE | 2023-09-25 09:36 | DCINST_ITS ---
Discharge Instructions Diet Discharge Diet: - (Strict NPO. Tube feed only.) Activity Discharge Activity: Return to Normal Activity and May Not Drive Weight Bearing Status: Weight bearing as tolerated Dressing / Incision Call your doctor if you observe: Fever of 101 or Higher, Coldness, Increased Pain, Numbness or Tingling, Change in Color, Inability to urinate, Inability to have a bowel movement, Shortness of breath, Dizziness, Fainting spells, Swelling in the ankles, Chest pain, Prolonged hiccupping, Increased palpitations (irregular heartbeat) and Calf discomfort Follow Up Care When: IN 2 WEEKS Test Results: Test results from this visit will be discussed in further detail at your follow- up appointment, if applicable. Discharge Plan Admission Admit Date/Time: 09/22/23 17:38 Primary Reason for Your Visit: COPD exacerbation Attending Provider: Jluis Bliss Primary Care Provider: Cha Powell Consulting Providers: Tavares Montana Discharge Orders/Prescriptions Prescriptions: New albuterol sulfate 90 mcg/actuation HFA aerosol inhaler 2 puff inhalation Q6H PRN (Reason: shortness of breath or wheezing) 30 Days Qty: 8.5 0RF Continued albuterol sulfate 2.5 mg /3 mL (0.083 %) Solution For Nebulization 2.5 mg inhalation Q2H PRN PRN (Reason: Dyspnea, wheezing) Qty: 0 0RF Therapeutic-M 9 mg iron-400 mcg Tablet 1 tab feeding tube BREAKFAST Qty: 0 0RF Jevity 1.5 Jason 0.06 gram-1.5 kcal/mL Liquid 240 ml G-tube 6X/DAY Qty: 0 0RF nicotine 14 mg/24 hr Patch 24 Hour 14 mg transdermal DAILY Qty: 28 0RF guaifenesin 200 mg/5 mL liquid 600 mg feeding tube Q4H PRN (Reason: congestion) Qty: 118 0RF carvedilol 6.25 mg Tablet 6.25 mg feeding tube BIDCM 30 Days Qty: 60 3RF lansoprazole 15 mg Capsule,Delayed Release(Dr/Ec) 30 mg G-tube DAILY 30 Days Qty: 60 0RF metoclopramide HCl [Reglan] 10 mg tablet 10 mg feeding tube Q8 30 Days Qty: 90 0RF melatonin 5 mg capsule 5 mg feeding tube DAILY 30 Days Qty: 30 0RF magnesium oxide 400 mg magnesium capsule 400 mg feeding tube DAILY 30 Days Qty: 30 0RF acetaminophen 325 mg Tablet 650 mg feeding tube Q4H PRN PRN (Reason: Fever, pain 1-03/05) dexamethasone 0.5 mg/5 mL elixir 1 mg PO DAILY Qty: 50 0RF ipratropium-albuterol 0.5 mg-3 mg(2.5 mg base)/3 mL Solution For Nebulization 3 ml inhalation Q4HWA.RT PRN (Reason: SOB) 30 Days Qty: 180 0RF prednisone 10 mg tablet 10 mg feeding tube DAILY Qty: 30 0RF Rx Instructions: 40 mg for 3 days 30 mg for 3 days, 20 mg for 3 days,and 10 mg for 3 days Referrals / Follow Up: Yann Amaya DO [Med Staff - Active Staff] - Within 1 Month (copd) Cha Powell PA [Primary Care Provider] - Disposition Disposition (needs filled in before D/C Order can be placed): Home Health Service
[2023-09-25 10:00] VITALS: BP 149/92; PULSE 63; RESP 17; TEMP 36.3; O2SAT 98
[2023-09-25] MEDS: Ipratropium/Albuterol Sulfate 3 ML AMPUL.NEB INHALATION (10:23)
[2023-09-25 10:34] VITALS: PULSE 77; RESP 18
--- NOTE | 2023-09-25 10:53 | CASEMGMT ---
Addendum entered by Shobha Hong 09/25/23 14:51: Call placed to patient and let him know he is showing as having [employer] MCR now. He states since he has not been home much, he has not had chance to go through his mail yet, and thanked TORIN CHENG for the call. E-mail sent to [facility] and made them aware pt now has [employer] M[employer] HMO and policy # provided. Call placed to [facility] and spoke w/Hanna in intake and she was also provided with this information. Addendum entered by Shobha Hong 09/25/23 14:35: Per Carolina @ [facility], pt now has [employer] MCR, policy # [id number]. Call placed to [facility] and they were given this updated info. They are aware pt to filler picker Duoneb today and lansoprazol, as [facility] retail does not have these in stock. Addendum entered by Shobha Hong 09/25/23 13:17: Rx's for Albuterol inhaler and prednisone have been tx'd to [facility]. TORIN CHENG spoke w/[facility] who also states they are not able to get rx's to go through insurance, stating Darryn MCR/part D is showing as . She states she can apply a coupon for the Albuterol inhaler, so pt's cost would be $15.96 on the coupon. The prednisone will be $6.77. Pt made aware of insurance showing it is for part D and also of [id number] cost. Initially pt very agitated and swearing, but then he stated, I'm sorry. I'm not upset with you. It's just all of this, it's a pile of shit. He then thanked TORIN CHENG for assistance and states his friend can go to [facility] today to get his rx's. He was made aware [facility] will be notified of his discharge and they will contact him to arrange for SOC. He voices appreciation. Appt have been scheduled w/pt's PCP, Andre, and also w/Dr Amaya and TORIN Harrington, reviewing those w/pt now. Addendum entered by Shobha Hong 09/25/23 12:41: Pt states his friend who is picking him up today is able to get his medications from [facility] pharmacy today. Addendum entered by Shobha Hong 09/25/23 12:40: Per Mervat @ [facility] retail pharmacy, she has attempted to process pt's medications through his insurance but states they are not going through. She states he reached out to [facility] and obtained billing info from them and attempted again w/out success. Call placed to Jorge @ [facility] and requested he call [facility] retail pharmacy to have rx's transferred to [facility]. [facility] to contact this RN CM once they process pt's medications. Addendum entered by Shobha Hong 09/25/23 11:40: Pt has 2 Rx's @ [facility] that are ready to be picked up (Nebulizer dickson't- Ipratopium/Albuterol and lansoprazole) Pt would like to get from [facility] Retail pharmacy before going home. Call placed to [facility] retail pharmacy. Per Mervat, they are out of the Ipratopium/Albut solution and they do not have the lansoprazole strength in stock that pt's rx is for. Pt made aware and that he will need to have these 2 rx's picked up @ [facility]. He voices understanding. Pt states he is also almost out of his Albuterol inhaler and would like to get @ [facility] retail pharmacy today. There are no refills remaining on this, per [facility]. Dr Bliss made aware and TORIN CHENG inquired if he can send rx to [facility] retail pharmacy. Original Note: RN CM NOTE: Per Dr Bliss, pt being discharged today. RN CM to room to inquire if pt has home O2 w/him. He states he does not have his home O2 w/him. His friend is picking him up @ d/c but his friend does not have the pierce to his home to filler picker his POC to bring in to him to go home on. He states he will need a portable take from [facility] to go home on. Call placed to Hannah @ [facility] and she was made aware of need of portable tank delivery to [facility] as pt is discharging home today. Per Dr Bliss, rx's being sent to [facility] retail pharmacy so pt can have his meds w/him @ discharge. Pt denies having other discharge needs at this time. Per Hannah @ [facility], portable O2 tank will only last for 1 hr and 25 min @ 6 l/m continuous. fatemeh Hammond RN, pt has a warrant for his arrest and she will notify appropriate persons when pt is discharged of same. Michelle CALVERTN RN CM
--- NOTE | 2023-09-25 11:19 | NURSING ---
talked with case management and powerhouse tender regarding warrant on the front of patient's chart stating to call [phone] upon discharge, discussed concern that patient does wear 6lnc continously and does not have o2 tank her but case mgmt Shobha has been in touch with [employer] pt's supplier to have portable o2 tank delivered for discharge. After discussion upon advisement, called Alvina Romero at number above and informed of intent to discharge today and home o2. informed by Alvina Romero pt to discharged home on his own will, they will not be coming to get patient, and he would discuss with nursing home nurse to make arrangement for when they catch up with him on another day. PRimary RN informed.
--- NOTE | 2023-09-25 12:17 | DS.PCM_ITS ---
Providers Date of Admission: 09/22/23 Date of Discharge: 09/25/23 Primary Care Physician: SILVIO Mejias Consultations 09/23/23 09:27 Consult: Business Practices Supervisor / Pulmonary Medicine Routine Consulting Provider: Intensivists/Pulmonary Med Reason for Consult: readmission for COPD exa, aspiration? EMERGENT Consult: No MD Notified: Yes Date Notified: 09/23/23 Time Notified: 09:27 Method of Notification: Text Reason For Visit: ACUTE EXACERBATION OF COPD W/ RECURRENT ASPIRATION Diagnosis Discharge Diagnosis (1) Acute exacerbation of chronic obstructive pulmonary disease: Status: Chronic Code(s): J44.1 - Chronic obstructive pulmonary disease with (acute) exacerbation (2) Recurrent aspiration events: Status: Acute (3) Chronic respiratory failure with hypoxia and hypercapnia: Status: Chronic Code(s): J96.11 - Chronic respiratory failure with hypoxia; J96.12 - Chronic respiratory failure with hypercapnia (4) Medical non-compliance: Status: Acute Code(s): Z91.199 - Patient's noncompliance with other medical treatment and regimen due to unspecified reason (5) Generalized weakness: Status: Acute Code(s): R53.1 - Weakness (6) Ambulatory dysfunction: Status: Acute Code(s): R26.2 - Difficulty in walking, not elsewhere classified Plan 63-year-old gentleman was recently admitted between 09/15-09/19/23 on Trilogy ventilator and then came to ED on repeated days on 09/20 and 09/21 for shortness of breath for 3 to 4 days, increased cough and sputum production, wheezing, ne gative for orthopnea/PND on 6 L of oxygen. 1. Acute exacerbation of COPD in the setting of ongoing tobacco abuse - Admit to general medical floor. Continue IV Zosyn and also start IV Solu-Medrol with scheduled and as needed nebulizers. Tobacco cessation will once again be strongly encouraged with nicotine patch offered to control cravings. 09/22: Patient stated that he ate sandwich at home although he was told strict n.p.o. given his history of aspiration/aspiration pneumonia with throat cancer. Patient also stated that he smokes cigarettes. At time of last discharge, patient will require nebulization equipment and ventilator that was given. Today, he said he does not have DuoNeb medication. DuoNeb prescription sent to pharmacy. With multiple readmission, nonadherence and running out of further management recommendations, coin wrapping machine operator/physical metallurgist consulted for further. Discussed with coin wrapping machine operator and discussed about previous hospital stay and new diagnosis. Patient is still eats ice chips. Chest x-ray individually reviewed and it is chronic changes of COPD but no obvious infiltrate. 09/23: Clinically patient still getting short of breath on walking. Home oxygen qualification test ordered. 09/24: Last time with DuoNeb was sent to [facility] from where patient did not co llect DuoNeb. This time DuoNeb was sent to retail pharmacy. Patient also asked for albuterol inhaler was sent to retail pharmacy. Tapering dose of prednisone prescription was sent to retail pharmacy as it was done in the last time to0. 2. Recent aspiration event with clinical evidence of [id number] respiratory insufficiency with patient saturating 84% in spite of 6 L nasal cannula complicating -Continue broad-spectrum antibiotics with steroids and decongestants. Wean additional supplemental oxygen back to baseline levels as tolerated. 09/23: Business Practices Supervisor consult reviewed. Antibiotic discontinued. Chest x-ray did not show any pneumonic infiltrate. 09/24 follow-up in pulmonary clinic. 3. Recent history of aspiration pneumonia with chronic dysphagia admitted here from August 29, 2023 to September 02, 2023 and September 16, 2023 to September 19, 2023; s/p PEG-tube and a chronic history of avoiding medical attention with medical noncompliance. This patient is resistant to all sound reasoning as he continues to try to eat things orally when told not to in spite of multiple admissions. 10/05: Restricted p.o. order. 4. Generalized weakness with ambulatory dysfunction arising from #1 to #3 - PT/OT case management consult and treat at this patient will likely require ECF placement due to his inability to care for himself at home with help appreciated in advance. 5. Essential hypertension - Resume home regimen plus give as needed hydralazine for systolic blood pressure greater than 160 mmHg. 6. History of NSTEMI-II due to AE COPD and Influenza A (07/2023) - Noted. 7. DVT prophylaxis - Lovenox 40 mg sq daily. Discharge medication reconciliation done. Discharge follow-up instructions completed. Discharge process discussed with the patient and all questions were answered to patient's satisfaction. Follow with PCP in 1 to 2 weeks Total time spent, exact 35 minutes on discharge meds reconciliation, examination, coordination of care with nurses and ancillary staff, review of imaging and blood test and discussion with the patient on follow-up instructions. Medications at Discharge Home Medications albuterol sulfate 2.5 mg/3 mL (0.083 %) solution for nebulization 2.5 mg (3 mL) inhalation Q2H PRN PRN Dyspnea, wheezing #0 mL 08/21/23 lactose-reduced food with fiber 0.06 gram-1.5 kcal/mL oral liquid (Jevity 1.5 Danii) 240 ml G-tube 6X/DAY #0 mL 08/21/23 multivitamin-iron 9 mg-folic acid 400 mcg-calcium and minerals tablet (Therapeutic-M) 1 tab feeding tube BREAKFAST #0 tabs 08/21/23 acetaminophen 325 mg tablet 650 mg feeding tube Q4H PRN PRN Fever, pain 1-03/0508/28/23 carvedilol 6.25 mg tablet 6.25 mg feeding tube BIDCM 30 days #60 tabs 09/19/23 guaifenesin 200 mg/5 mL oral liquid 600 mg (15 mL) feeding tube Q4H PRN congestion #118 mL 09/19/23 lansoprazole 15 mg capsule,delayed release 30 mg (2 x 15 mg) G-tube DAILY 1 month #60 caps 09/19/23 magnesium oxide 400 mg feeding tube DAILY 1 month #30 caps 09/19/23 melatonin 5 mg capsule 5 mg feeding tube DAILY 30 days #30 caps 09/19/23 metoclopramide HCl 10 mg tablet (Reglan) 10 mg feeding tube Q8 1 month #90 tabs 09/19/23 nicotine 14 mg/24 hr daily transdermal patch 14 mg transdermal DAILY #28 ea 09/19/23 dexamethasone 0.5 mg/5 mL oral elixir 1 mg (10 mL) PO DAILY #50 mL 09/21/23 ipratropium 0.5 mg-albuterol 3 mg (2.5 mg base)/3 mL nebulization soln 3 ml inhalation Q4HWA.RT PRN SOB 1 month #180 mL 09/23/23 albuterol sulfate 90 mcg/actuation aerosol inhaler 2 puff inhalation Q6H PRN shortness of breath or wheezing 1 month #8.5 grams 09/25/23 prednisone 10 mg tablet 10 mg feeding tube DAILY #30 tabs 09/25/23 Physical Exam Narrative Shortness of breath and dyspnea much improved. Patient is states on walking he does not have much problem and is on baseline. Physical exam General: Alert, Oriented x3, Cooperative HEENT: Atraumatic, PERRLA, EOMI, Normocephalic Oral:No Gingival or Mucosal Lesions/ Ulcerations. Oral mucosa moist. Neck: Supple, No JVD, Negative Carotid Bruits Chest wall/Lungs: Air entry diminished in bilateral lung bases. Bilateral e xpiratory rhonchi. Cardiovascular: Regular rate, Regular Rhythm, Normal S1, Normal S2, No M/G/R Abdomen: Bowel Sounds Present, Soft, Non Tender, Non-Distended : No dysuria. No renal angle tenderness. No suprapubic tenderness. Extremities: No edema, Capillary Refill Less than 3 Seconds Skin: No rashes, No breakdown Musculoskeletal: No Tenderness to Palpation of Joints or Extremities. ROM full and adequate Neurological: Cranial nerves II-XII grossly intact, DTR 2+/4. No acute focal neurological deficit. Psych/Mental Status: Flat affect. Medical Records Data Medical Nutrition Assessment Dietitian: Malnutrition Criteria Met Start: 09/23/23 11:31 Freq: Status: Active Protocol: Document 09/23/23 11:31 [facility] (Rec: 09/23/23 11:31 [facility] Desktop) Nutrition Malnutrition Evidence of Malnutrition Exists Yes Malnutrition (severe): Chronic Evidenced By Suboptimal Energy Intake ( Severe),Weight Loss (Severe), Physical Changes (Severe) Intake Problem Inadequate Oral Intake Etiology related to dysphagia Signs/Symptoms as evidenced by NPO status and need for nutrition via PEG Status Active Problem Clinical Problem Chronic Disease or Condition Related Malnutrition Etiology related to inadequate po energy intake d/t head/neck cancer Signs/Symptoms as evidenced by NPO status and need for nutrition via PEG, 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 Status Active Problem Recommendation Dietitian Recommendations/Changes Rec continue Jevity 1.5: 240 ml 6x/day - will order 80 ml water flush before and after each bolus feeding 6x/day to provide ~ 2160 danii/ 91.8 gm pro/ 2054 ml fluid/ day Weight / BMI Weight Weight: 126 lb 12.253 oz Body Mass Index (BMI) 16.2 ABG / Lab / Microbiology Data 09/25/23 06:05 09/25/23 06:05 Laboratory: Laboratory Results - last 24 hr 09/25/23 06:05: WBC 20.9 H, RBC 3.68 L, Hgb 11.7 L, Hct 35.7 L, MCV 97.0 H, MCH 31.8, MCHC 32.8, RDW Std Deviation 50.5 H, RDW Coeff of Tony 14.1, Plt Count 530 H, MPV 9.4, Immature Gran % (Auto) 0.800, Neut % (Auto) 96.1 H, Lymph % (Auto) 1.6 L, [place] % (Auto) 1.4, Eos % (Auto) 0.0, Baso % (Auto) 0.1, Absolute Neuts (auto) 20.1 H, Absolute Lymphs (auto) 0.34 L, Nucleated RBC % 0, Differential Comment SCANNED, Sodium 133 L, Potassium 4.3, Chloride 95 L, Carbon Dioxide 35.0 H, Anion Gap 3 L, BUN 20 H, Creatinine 0.51 L, Estim Creat Clear Calc 74.87, Est GFR (MDRD) Af Amer 210, Est GFR (MDRD) Non-Af 173, BUN/Creatinine Ratio 39.2 H, Glucose 123 H, Calcium 8.7 D/C Instructions Discharge Diet: - (Strict NPO. Tube feed only.) Weight Bearing Status: Weight bearing as tolerated Call your doctor if you observe: Fever of 101 or Higher, Coldness, Increased Pain, Numbness or Tingling, Change in Color, Inability to urinate, Inability to have a bowel movement, Shortness of breath, Dizziness, Fainting spells, Swelling in the ankles, Chest pain, Prolonged hiccupping, Increased palpitations (irregular heartbeat) and Calf discomfort When: IN 2 WEEKS Meaningful Use Info Meaningful Use Meaningful Use Diagnoses (Choose all that apply): None applicable Ischemic Stroke Statin Dosing Therapy Reference: STATIN DOSE THERAPY REFERENCE: * Patients > 75 years receive moderate or high dose statin therapy. * Patients 75 years or YOUNGER should receive HIGH intensity statin dose unless contraindicated. You will be required to document reason for non-treatment if statin daily dose does not meet guidelines. HIGH DOSE STATIN THERAPY DAILY Atorvastatin > than or = to 40 mg Rosuvastatin > than or = to 20 mg Amlodipine + Atorvastatin > than or = to 2.5/40 mg Ezetimibe + Simvastatin 10/80 mg Simvastatin 80mg Discharge Plan Admission Admit Date/Time: 09/22/23 17:38 Primary Reason for Your Visit: COPD exacerbation Attending Provider: Jluis Bliss Primary Care Provider: Cha Powell Consulting Providers: Tavares Montana Discharge Orders/Prescriptions Prescriptions: New albuterol sulfate 90 mcg/actuation HFA aerosol inhaler 2 puff inhalation Q6H PRN (Reason: shortness of breath or wheezing) 30 Days Qty: 8.5 0RF Continued albuterol sulfate 2.5 mg /3 mL (0.083 %) Solution For Nebulization 2.5 mg inhalation Q2H PRN PRN (Reason: Dyspnea, wheezing) Qty: 0 0RF Therapeutic-M 9 mg iron-400 mcg Tablet 1 tab feeding tube BREAKFAST Qty: 0 0RF Jevity 1.5 Danii 0.06 gram-1.5 kcal/mL Liquid 240 ml G-tube 6X/DAY Qty: 0 0RF nicotine 14 mg/24 hr Patch 24 Hour 14 mg transdermal DAILY Qty: 28 0RF guaifenesin 200 mg/5 mL liquid 600 mg feeding tube Q4H PRN (Reason: congestion) Qty: 118 0RF carvedilol 6.25 mg Tablet 6.25 mg feeding tube BIDCM 30 Days Qty: 60 3RF lansoprazole 15 mg Capsule,Delayed Release(Dr/Ec) 30 mg G-tube DAILY 30 Days Qty: 60 0RF metoclopramide HCl [Reglan] 10 mg tablet 10 mg feeding tube Q8 30 Days Qty: 90 0RF melatonin 5 mg capsule 5 mg feeding tube DAILY 30 Days Qty: 30 0RF magnesium oxide 400 mg magnesium capsule 400 mg feeding tube DAILY 30 Days Qty: 30 0RF acetaminophen 325 mg Tablet 650 mg feeding tube Q4H PRN PRN (Reason: Fever, pain 1-03/05) dexamethasone 0.5 mg/5 mL elixir 1 mg PO DAILY Qty: 50 0RF ipratropium-albuterol 0.5 mg-3 mg(2.5 mg base)/3 mL Solution For Nebulization 3 ml inhalation Q4HWA.RT PRN (Reason: SOB) 30 Days Qty: 180 0RF prednisone 10 mg tablet 10 mg feeding tube DAILY Qty: 30 0RF Rx Instructions: 40 mg for 3 days 30 mg for 3 days, 20 mg for 3 days,and 10 mg for 3 days Referrals / Follow Up: Yann Amaya DO [Med Staff - Active Staff] - Within 1 Month (copd) Cha Powell PA [Primary Care Provider] - Disposition Disposition (needs filled in before D/C Order can be placed): Home Health S ervice Charges/Coding Visit Charges Inpatient E&M: 76442 Disch Hosp >30min
--- NOTE | 2023-09-25 12:49 | CASEMGMT ---
Discharge Planning Discharge summary and instructions sent to [facility] via [facility]. Oliva Johnson, Discharge Planning Asst.
--- NOTE | 2023-09-25 13:27 | CASEMGMT ---
Social Work SW left VM with Catrina at [facility] and updated that pt discharged today. CHANDRAKANT Phan
--- NOTE | 2023-09-25 16:21 | CASEMGMT ---
Addendum entered by Shobha Hong 09/26/23 16:23: TORIN CHENG spoke w/Martha, nurse for [facility], and given updates. Addendum entered by Shobha Hong 09/26/23 16:08: Attempted to reach pt again. No answer. Addendum entered by Shobha Hong 09/26/23 14:51: Call placed to pt. No answer. VM left asking pt to return call to this TORIN CHENG and phone # provided. Call placed to [facility], who states she has received all required documentation needed for pt. She states she has reached out to pt today twice and has left 's both times and is awaiting return call so she can verify pt's address to arrange for delivery of tube feeding. Addendum entered by Shobha Hong 09/26/23 14:45: Medications processed through pt's [employer] [facility] plan and there is no cost for all 4 of the Rx's ready for pick-up @ [facility]. Addendum entered by Shobha Hong 09/26/23 14:41: Call placed to [facility] pharmacy. Pt has not picked up any of his rx's and there are 4 currently ready to be picked up: Duoneb, lansoprazole, Albuterol inhaler, and prednisone. The Duoneb and lansoprazole was able to be billed under pt's prior insurance, [employer] and so there is no cost for pt. They are still not able to bill the Albuterol inhaler or prednisone under his new insurance, [employer], as they need pt's PCN and BIN #'s. Cost [id number] for these 2 medications is: $22.73, which is the amt TORIN CHENG informed pt of yesterday. TORIN CHENG placed call to [employer] [facility] and spoke w/someone in the benefits department: [employer] [facility]: , Extension: [phone]. Pt's PCN # is: [id number], RX BIN: [id number], and RX group #: [id number]. Call placed to [employer] and they were provided with this information. Addendum entered by Shobha Hong 09/26/23 11:44: SMN for [employer] signed by Dr Chauhan and faxed to [facility] at this time, along w/documentation stating tube feed is primary source of nutritions. TORIN CHENG spoke w/Eryn, who states she has reached out to pt and left him a VM asking him to return call so arrangements can be made to deliver tube feeding/[employer]. Addendum entered by Shobha Hong 09/26/23 11:09: Gilliam @ [facility] inquired if [employer] can be used in place of Jevity. Martha, transport specialist, verifies this is okay. Call placed back to Gilliam and she was made aware. She states will fax a SMN to [facility] and it will need to be signed by physician and faxed back to her @ [phone]. She is aware pt to be NPO and has documentation stating same, but states she still needs documentation that states feeding tube is pt's primary source of nutrition. Addendum entered by Shobha Hong 09/25/23 16:56: Gilliam states an SMN is needed and inquired which physician to address this to. She was made aware it is Dr Bliss. Original Note: TORIN CHENG NOTE: Call received from [facility], stating they just received the referral for tube feedings today, stating the referral was sent to the wrong location. She inquired if pt is still in need of the tube feedings. TORIN CHENG verified w/her that delivery is still needed. She requests additional documentation be sent verifying that pt's primary source of nutrition is via tube. TORIN CHENG faxed transport specialist notes from 09/16 at this time to: [phone]. Gilliam states she will f/u with CM tomorrow re: further information needed. Michelle HERNANDEZ RN, CM
== END 2023-09-25 13:20 | disposition home health service (06) | DRG 190 ==
LOC: ED 16:19 → MS3 18:14
PROVIDERS: Admitting Provider Internal Medicine; Emergency Provider Emergency Medicine; PCP Physician Assistant; Visit Provider Internal Medicine
DX: J44.1 Chronic obstructive pulmonary disease with (acute) exacerbation (principal); E43 Unspecified severe protein-calorie malnutrition; J96.11 Chronic respiratory failure with hypoxia; E87.1 Hypo-osmolality and hyponatremia; Z68.1 Body mass index [BMI] 19.9 or less, adult; D63.8 Anemia in other chronic diseases classified elsewhere; I10 Essential (primary) hypertension; J98.01 Acute bronchospasm; F17.210 Nicotine dependence, cigarettes, uncomplicated; E78.5 Hyperlipidemia, unspecified; R26.2 Difficulty in walking, not elsewhere classified; Z91.199 Patient's noncompliance with other medical treatment and regimen due to unspecified reason; R13.10 Dysphagia, unspecified; R53.1 Weakness
CPT/HCPCS: 36415; 36600; 71045; 71046; 73660; 80048; 80053; 82803; 83605; 85025; 87040; 92526; 92610; 93005; 94640; 97110; 97162; 97530; 97802; 99283; 99285; J7050; A4216

== ENCOUNTER 2023-09-25 18:07 | Emergency (ER) | payer MEDICARE, MEDICAID, SELFPAY ==
[2023-09-25 18:07] VITALS: BP 162/108; PULSE 87; RESP 22; TEMP 36.7; O2SAT 95; BMI 17.7
--- NOTE | 2023-09-25 18:12 | EKG12_ITS ---
Test Reason : SOB Blood Pressure : / mmHG Vent. Rate : 091 BPM Atrial Rate : 091 BPM P-R Int : 120 ms QRS Dur : 076 ms QT Int : 360 ms P-R-T Axes : 080 061 074 degrees QTc Int : 442 ms Sinus rhythm with Premature supraventricular complexes Otherwise normal ECG Confirmed by MADONNA WILD, KWAME ([id number]), supervising film or videotape editor JUNO OSEI ([id number]) on 09/26/2023 11:53:11 AM Referred By: Confirmed By:KWAME PEACOCK MD
[2023-09-25 19:07] VITALS: RESP 18; O2SAT 95
--- NOTE | 2023-09-25 19:26 | RAD_ITS ---
INDICATION: dyspnea EXAMINATION/TECHNIQUE: X-RAY - XR Chest 2 Views COMPARISON: 09/22/2023 FINDINGS: LINES/DEVICES: None. LUNGS: Stable hyperinflation without consolidation, vascular congestion or pleural effusion. MEDIASTINUM AND CARDIOVASCULAR STRUCTURES: Cardiac silhouette stable within normal limits. BONES AND SOFT TISSUES: No acute changes. RAD/Chest PA and Lateral IMPRESSION: No radiographic evidence of acute cardiopulmonary disease. Electronically Signed: Miguel Reyes MD at 19:57 EDT ,
[2023-09-25] MEDS: Albuterol Sulfate 8 gm Inhaler (60 puffs) 2 PUFF INHALATION (19:30)
[2023-09-25 20:00] VITALS: BP 168/79; PULSE 80; RESP 17; O2SAT 95
--- NOTE | 2023-09-25 20:07 | EDS_ITS ---
HPI History of Present Illness Chief Complaint: Shortness of Breath Narrative Narrative: 63-year-old male released from the hospital today presenting with dyspnea. He states that he was at home and there was a mixup with his medications or his insurance but for what ever reason he did not get his prescriptions and while he was trying to sort this out but the pharmacy he states opinion flew into his house he was running around trying to get out of the house and his oxygen tube must of disconnected and he felt short of breath. He states he called EMS because of this and did not try to fix the tubing. He states he did not even address this issue with EMS. He was transported and placed back on oxygen and he feels better. He has not had any new fevers or chills. Is not more short of breath than he was when he left. He feels okay. He states he did not go home and eat food. [facility] Medical History Acute and chronic respiratory failure with hypoxia Aspiration pneumonitis Asthma Chronic hyponatremia COPD (chronic obstructive pulmonary disease) COPD exacerbation History of alcohol abuse History of GI bleed History of throat cancer History of tobacco use Hypertension Severe malnutrition Home Medications albuterol sulfate 2.5 mg/3 mL (0.083 %) solution for nebulization 2.5 mg (3 mL) inhalation Q2H PRN PRN Dyspnea, wheezing #0 mL 08/21/23 [Rx Last Taken 09/22/23] lactose-reduced food with fiber 0.06 gram-1.5 kcal/mL oral liquid (Jevity 1.5 Jason) 240 ml G-tube 6X/DAY #0 mL 08/21/23 [Rx Last Taken Unknown] multivitamin-iron 9 mg-folic acid 400 mcg-calcium and minerals tablet (Therapeutic-M) 1 tab feeding tube BREAKFAST #0 tabs 08/21/23 [Rx Last Taken 09/21/23] acetaminophen 325 mg tablet 650 mg feeding tube Q4H PRN PRN Fever, pain 1-03/0508/28/23 [History Last Taken Unknown] carvedilol 6.25 mg tablet 6.25 mg feeding tube BIDCM 30 days #60 tabs 09/19/23 [Rx Last Taken 09/22/23] guaifenesin 200 mg/5 mL oral liquid 600 mg (15 mL) feeding tube Q4H PRN congestion #118 mL 09/19/23 [Rx Last Taken Unknown] lansoprazole 15 mg capsule,delayed release 30 mg (2 x 15 mg) G-tube DAILY 1 month #60 caps 09/19/23 [Rx Last Taken 09/21/23] magnesium oxide 400 mg feeding tube DAILY 1 month #30 caps 09/19/23 [Rx Last Taken 09/21/23] melatonin 5 mg capsule 5 mg feeding tube DAILY 30 days #30 caps 09/19/23 [Rx Last Taken 09/21/23] metoclopramide HCl 10 mg tablet (Reglan) 10 mg feeding tube Q8 1 month #90 tabs 09/19/23 [Rx Last Taken 09/22/23] nicotine 14 mg/24 hr daily transdermal patch 14 mg transdermal DAILY #28 ea 09/19/23 [Rx Last Taken Unknown] dexamethasone 0.5 mg/5 mL oral elixir 1 mg (10 mL) PO DAILY #50 mL 09/21/23 [Rx Last Taken Unknown] ipratropium 0.5 mg-albuterol 3 mg (2.5 mg base)/3 mL nebulization soln 3 ml inhalation Q4HWA.RT PRN SOB 1 month #180 mL 09/23/23 [Rx Last Taken Unknown] albuterol sulfate 90 mcg/actuation aerosol inhaler 2 puff inhalation Q6H PRN malick rtness of breath or wheezing 1 month #8.5 grams 09/25/23 [Rx Last Taken Unknown] prednisone 10 mg tablet 10 mg feeding tube DAILY #30 tabs 09/25/23 [Rx Last Taken Unknown] Allergy/AdvReac Type Severity Reaction Status Date / Time No Known Allergies Allergy Verified 09/25/23 18:07 Family History Mother No problems noted. Father No problems noted. Surgical History History of throat surgery Social History household members: none housing: jail current occupational status: employed Smoking Status: Current some day smoker tobacco type: cigarettes how long ago did patient quit smoking: Quit during most recent admission 08/11/23. alcohol intake: former details: Prior 5 shots hard liquor, several beers daily, none since 07/2023 admission substance use type: does not use ROS ROS ED Constitutional Constitutional ED: Denies chills, fever(s) or sweats Eyes Eyes: Denies blurry vision or change in vision ENT ENT ED: Denies ear pain or sore throat Cardiovascular Cardiovascular: Denies chest pain, palpitations or racing heartbeat Respiratory/Chest Respiratory/Chest: Reports dyspnea; Denies cough or sputum Gastrointestinal Gastrointestinal: Denies abdominal pain, constipation, diarrhea, nausea or vomiting Genitourinary Genitourinary ED: Denies dysuria, hematuria or urinary frequency Musculoskeletal Musculoskeletal: Denies arthralgias, myalgias or neck pain Integumentary Denies abscess, Abrasions or rash Neurologic Neurologic: Denies headache(s), paresthesias or weakness Psychiatric Psychiatric: Denies anxiety, depression, suicidal ideation or suicidal thoughts Endocrine Endocrinology: Denies polydipsia or polyuria EXAM Physical Exam Const Vital Signs: 09/25/23 18:07 09/25/23 18:07 09/25/23 19:07 Temperature 98.1 F Temperature Source Temporal Pulse Rate 87 Respiratory Rate 22 H 18 Respiratory Effort Short of Breath Respiratory Depth Normal Respiratory Pattern Normal Blood Pressure 162/108 H Blood Pressure Mean 126 Pulse Ox 95 95 Oxygen Delivery Method Nasal Cannula Nasal Cannula Nasal Cannula Oxygen Flow Rate (L/min) 6 6 09/25/23 20:00 09/25/23 20:22 Temperature 97.6 F L Temperature Source Pulse Rate 80 80 Respiratory Rate 17 17 Respiratory Effort Respiratory Depth Respiratory Pattern Blood Pressure 168/79 H 168/79 H Blood Pressure Mean 108 108 Pulse Ox 95 95 Oxygen Delivery Method Nasal Cannula Oxygen Flow Rate (L/min) 6 Positive unkempt General Appearance ED: unkempt and NAD; Negative for pallor HEENT Reports dry mucous membranes Mouth ED: Yes dry mucous membranes Mouth: dry mucous membranes Eyes PERRL and EOMs intact bilaterally Neck no lymphadenopathy Resp normal respiratory effort and clear to auscultation bilaterally Auscultation: Negative for rales or rhonchi Cardio regular rate and regular rhythm Neuro oriented x3 and CN's II-XII intact bilaterally Sensorium / Orientation: alert Motor Exam: strength 5/5 throughout Psych mental status grossly normal Appearance: unkempt Skin no wounds General Skin Exam: Negative for jaundice or pallor MDM MDM MDM Narrative Medical decision making narrative: Patient presenting with shortness of breath and he states because his oxygen tubing was long and while he was chasing up patient around his house it disconnected and he became short of breath called EMS. He states he feels back to normal now and he is on oxygen. He states he can address his oxygen tubing when he gets home.EKG was performed as protocol due to patient's dyspnea. EKG on my interpretation shows a sinus rhythm at 91 bpm without sign of ischemic change or dysrhythmia. Chest x-ray my interpretation shows no acute ca rdiopulmonary process. Radiologist interpretation agrees. I spoke with the pharmacy about the patient's prescriptions and her appears to be some sort of confusion that his was supposed to be here at [facility] what is actually a right aid and the pharmacy was able to call over there and confirmed that there not only there but the ready to be picked up and his previous nebulizers from his last prescription were never filled. I discussed this with them and he will pick them up. Impression: 1. Dyspnea 2. History of COPD Lab Data Attestation: I reviewed the patient's lab results. Radiography Diagnostic Testing: Clinical Impression(s) from Imaging Studies Chest X-Ray 09/25/23 19:26 IMPRESSION: No radiographic evidence of acute cardiopulmonary disease. Electronically Signed: Miguel Reyes MD at 19:57 EDT Reading Location ID and State: [address] [place] [address] Tel , Service support , Discharge Plan Triage Chief Complaint: Shortness of Breath ED Provider: Brando Lubin Dx/Rx/DC Orders Instructions: ED COPD Flare Prescriptions: No Action albuterol sulfate 2.5 mg /3 mL (0.083 %) Solution For Nebulization 2.5 mg inhalation Q2H PRN PRN (Reason: Dyspnea, wheezing) Qty: 0 0RF Therapeutic-M 9 mg iron-400 mcg Tablet 1 tab feeding tube BREAKFAST Qty: 0 0RF Jevity 1.5 Jason 0.06 gram-1.5 kcal/mL Liquid 240 ml G-tube 6X/DAY Qty: 0 0RF nicotine 14 mg/24 hr Patch 24 Hour 14 mg transdermal DAILY Qty: 28 0RF guaifenesin 200 mg/5 mL liquid 600 mg feeding tube Q4H PRN (Reason: congestion) Qty: 118 0RF carvedilol 6.25 mg Tablet 6.25 mg feeding tube BIDCM 30 Days Qty: 60 3RF lansoprazole 15 mg Capsule,Delayed Release(Dr/Ec) 30 mg G-tube DAILY 30 Days Qty: 60 0RF metoclopramide HCl [Reglan] 10 mg tablet 10 mg feeding tube Q8 30 Days Qty: 90 0RF melatonin 5 mg capsule 5 mg feeding tube DAILY 30 Days Qty: 30 0RF magnesium oxide 400 mg magnesium capsule 400 mg feeding tube DAILY 30 Days Qty: 30 0RF acetaminophen 325 mg Tablet 650 mg feeding tube Q4H PRN PRN (Reason: Fever, pain 1-03/05) dexamethasone 0.5 mg/5 mL elixir 1 mg PO DAILY Qty: 50 0RF ipratropium-albuterol 0.5 mg-3 mg(2.5 mg base)/3 mL Solution For Nebulization 3 ml inhalation Q4HWA.RT PRN (Reason: SOB) 30 Days Qty: 180 0RF albuterol sulfate 90 mcg/actuation HFA aerosol inhaler 2 puff inhalation Q6H PRN (Reason: shortness of breath or wheezing) 30 Days Qty: 8.5 0RF prednisone 10 mg tablet 10 mg feeding tube DAILY Qty: 30 0RF Rx Instructions: 40 mg for 3 days 30 mg for 3 days, 20 mg for 3 days,and 10 mg for 3 days Primary Care Provider: Cha Powell Referrals: Cha Powell PA [Primary Care Provider] - Disposition Disposition: Home, Self Care Discharge Date/Time: 09/25/23 20:25
[2023-09-25 20:22] VITALS: BP 168/79; PULSE 80; RESP 17; TEMP 36.4; O2SAT 95
== END 2023-09-25 20:25 | disposition home or self-care (01) ==
PROVIDERS: Emergency Provider Student in an Organized Health Care Education/Training Program; PCP Physician Assistant; Visit Provider Student in an Organized Health Care Education/Training Program
DX: R06.00 Dyspnea, unspecified (principal); J44.9 Chronic obstructive pulmonary disease, unspecified; Z85.89 Personal history of malignant neoplasm of other organs and systems; I10 Essential (primary) hypertension; F17.210 Nicotine dependence, cigarettes, uncomplicated
CPT/HCPCS: 99282; 71046; 93005

== ENCOUNTER 2023-09-26 21:15 | Inpatient (IN) | payer MEDICARE, MEDICAID, SELFPAY ==
[2023-09-26] VITALS (15 sets, daily range): BP systolic 67–108; BP diastolic 54–90; PULSE 0–88; RESP 18–23; TEMP 35.6–36.1; O2SAT 0–100; BMI 21.2
--- NOTE | 2023-09-26 21:25 | EKG12_ITS ---
Test Reason : DYSRHYTHMIA Blood Pressure : / mmHG Vent. Rate : 081 BPM Atrial Rate : 000 BPM P-R Int : 000 ms QRS Dur : 154 ms QT Int : 382 ms P-R-T Axes : 000 092 046 degrees QTc Int : 443 ms Atrial fibrillation Right bundle branch block Abnormal ECG Confirmed by MADONNA WILD, KWAME ([id number]), advertising editor DARWIN AGUILAR ([id number]) on 09/27/2023 10:29:47 AM Referred By: TRE Confirmed By:KWAME PEACOCK MD
--- NOTE | 2023-09-26 21:27 | EDS_ITS ---
HPI History of Present Illness Chief Complaint: CPR Informant: EMS Narrative Narrative: Presents prehospital cardiac arrest. Per EMS call out was concerned for arrest. On arrival patient had a pulse. 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 EMS was contacted. There is no bystander CPR. However they had a pulse on arrival. And route to the hospital he lost pulse reporting PEA arrest. Status post 4 rounds of epinephrine. He was given 4 mg of Narcan. He is brought in here with a Eliot device and Igel. Left humeral IO was placed. Records note COPD chronic 6 L oxygen. No cardiac history. [facility] Medical History (Updated 09/27/23 @ 00:02 by Background Dajon) Asthma Chronic anemia Chronic hyponatremia Chronic hypoxemic respiratory failure Chronic pulmonary aspiration COPD (chronic obstructive pulmonary disease) End stage COPD History of alcohol abuse History of GI bleed History of throat cancer History of tobacco use Hypertension Medical non-compliance PAF (paroxysmal atrial fibrillation) Severe malnutrition Home Medications albuterol sulfate 2.5 mg/3 mL (0.083 %) solution for nebulization 2.5 mg (3 mL) inhalation Q2H PRN PRN Dyspnea, wheezing #0 mL 08/21/23 [Rx Last Taken 09/22/23] lactose-reduced food with fiber 0.06 gram-1.5 kcal/mL oral liquid (Jevity 1.5 Jason) 240 ml G-tube 6X/DAY #0 mL 08/21/23 [Rx Last Taken Unknown] multivitamin-iron 9 mg-folic acid 400 mcg-calcium and minerals tablet (Therapeutic-M) 1 tab feeding tube BREAKFAST #0 tabs 08/21/23 [Rx Last Taken 09/21/23] acetaminophen 325 mg tablet 650 mg feeding tube Q4H PRN PRN Fever, pain 1-03/0508/28/23 [History Last Taken Unknown] carvedilol 6.25 mg tablet 6.25 mg feeding tube BIDCM 30 days #60 tabs 09/19/23 [Rx Last Taken 09/22/23] guaifenesin 200 mg/5 mL oral liquid 600 mg (15 mL) feeding tube Q4H PRN congestion #118 mL 09/19/23 [Rx Last Taken Unknown] lansoprazole 15 mg capsule,delayed release 30 mg (2 x 15 mg) G-tube DAILY 1 month #60 caps 09/19/23 [Rx Last Taken 09/21/23] magnesium oxide 400 mg feeding tube DAILY 1 month #30 caps 09/19/23 [Rx Last Taken 09/21/23] melatonin 5 mg capsule 5 mg feeding tube DAILY 30 days #30 caps 09/19/23 [Rx Last Taken 09/21/23] metoclopramide HCl 10 mg tablet (Reglan) 10 mg feeding tube Q8 1 month #90 tabs 09/19/23 [Rx Last Taken 09/22/23] nicotine 14 mg/24 hr daily transdermal patch 14 mg transdermal DAILY #28 ea 09/19/23 [Rx Last Taken Unknown] dexamethasone 0.5 mg/5 mL oral elixir 1 mg (10 mL) PO DAILY #50 mL 09/21/23 [Rx Last Taken Unknown] ipratropium 0.5 mg-albuterol 3 mg (2.5 mg base)/3 mL nebulization soln 3 ml inhalation Q4HWA.RT PRN SOB 1 month #180 mL 09/23/23 [Rx Last Taken Unknown] albuterol sulfate 90 mcg/actuation aerosol inhaler 2 puff inhalation Q6H PRN shortness of breath or wheezing 1 month #8.5 grams 09/25/23 [Rx Last Taken Unknown] prednisone 10 mg tablet 10 mg feeding tube DAILY #30 tabs 09/25/23 [Rx Last Taken Unknown] Allergy/AdvReac Type Severity Reaction Status Date / Time No Known Allergies Allergy Verified 09/25/23 18:07 Family History Mother No problems noted. Father No problems noted. Surgical History History of throat surgery Social History household members: none housing: retirement current occupational status: employed Smoking Status: Current every day smoker tobacco type: cigarettes how long ago did patient quit smoking: Quit during most recent admission 08/11/23. alcohol intake: former details: Prior 5 shots hard liquor, several beers daily, none since 07/2023 admission substance use type: does not use ROS ROS ED Review of Systems ROS Unobtainable: due to endotracheal tube and due to mental status EXAM Physical Exam Const Vital Signs: 09/26/23 21:17 09/26/23 21:15 09/26/23 21:24 Temperature 97 F L Temperature Source Temporal Pulse Rate 72 Pulse Rate [1] 0 L Respiratory Rate 20 H Respiratory Pattern Blood Pressure 108/90 H Blood Pressure Mean 96 Pulse Ox Oxygen Delivery Method Ambu-Bag Oxygen Flow Rate (L/min) Fraction of Inspired Oxygen (FIO2) 09/26/23 21:46 09/26/23 21:45 09/26/23 21:55 Temperature Temperature Source Pulse Rate 86 87 Pulse Rate [1] Respiratory Rate 20 H 22 H Respiratory Pattern Normal Blood Pressure 93/66 Blood Pressure Mean 75 Pulse Ox 100 59 Oxygen Delivery Method Mechanical Ventilator Mechanical Ventilator Oxygen Flow Rate (L/min) 100 Fraction of Inspired Oxygen (FIO2) 100 09/26/23 22:16 09/26/23 21:59 09/26/23 22:00 Temperature Temperature Source Pulse Rate 80 88 88 Pulse Rate [1] Respiratory Rate 21 H 23 H 23 H Respiratory Pattern Blood Pressure 68/54 L 70/60 L Blood Pressure Mean 58 66 Pulse Ox Oxygen Delivery Method Mechanical Ventilator Oxygen Flow Rate (L/min) 100 Fraction of Inspired Oxygen (FIO2) 09/26/23 22:15 09/26/23 22:30 09/26/23 23:07 Temperature 96.0 F L Temperature Source Temporal Pulse Rate 78 73 Pulse Rate [1] Respiratory Rate 19 H 18 Respiratory Pattern Blood Pressure 68/54 L 67/56 L 87/65 L Blood Pressure Mean 61 61 72 Pulse Ox Oxygen Delivery Method Mechanical Ventilator Oxygen Flow Rate (L/min) 100 Fraction of Inspired Oxygen (FIO2) 09/26/23 23:00 09/26/23 23:30 09/26/23 23:02 Temperature 96.0 F L 96.2 F L Temperature Source Temporal Temporal Pulse Rate 74 75 78 Pulse Rate [1] Respiratory Rate 20 H 18 19 H Respiratory Pattern Blood Pressure 87/63 L 84/62 L 92/75 Blood Pressure Mean 71 69 80 Pulse Ox 90 89 Oxygen Delivery Method Mechanical Ventilator Mechanical Ventilator Oxygen Flow Rate (L/min) 100 Fraction of Inspired Oxygen (FIO2) 09/26/23 23:07 09/26/23 23:22 Temperature 97.0 F L Temperature Source Pulse Rate 81 75 Pulse Rate [1] Respiratory Rate 20 H 18 Respiratory Pattern Blood Pressure 88/68 L 88/58 L Blood Pressure Mean 74 68 Pulse Ox 94 Oxygen Delivery Method Oxygen Flow Rate (L/min) Fraction of Inspired Oxygen (FIO2) Constitutional Narrative: I gel [id number], Eliot pump running Resp Resp Narrative: Symmetric breath sounds Cardio Cardio Narrative: Eliot pump positive bilateral femoral pulses Neuro Neuro Narrative: Unresponsive MDM MDM MDM Narrative Medical decision making narrative: Interventions / MDM: Differential diagnosis: Cardiopulmonary arrest, atrial fibrillation, shock Diagnosis considered but do not suspect: N/A My EKG interpretation: EKG at 2117: A-fib, no ST or T wave changes. Right bundle branch block. QTc 443 Imaging independently reviewed and interpreted by myself: Chest x-ray: ET tube in place. No infiltrates. OG with orifice opening just above the diaphragm. This also read by radiology. External documents reviewed: N/A Test considered but not ordered:N/A ED course: Patient continued ACLS, Eliot pump was continuing on pulse check patient had a pulse. Patient's Igel was exchanged over to the ETT tube with direct visualization of placement bilateral breath sounds. Sepsis orders labs were placed. 2127: Called back to room as patient lost a pulse. Additional epinephrine and bicarb was given. After 2 minutes pulse returned at 2130. Bedside ultrasound good cardiac motion both ventricles no dilatation no pericardial fluid. IV fluids to be continued. Heart rate 140s, irregular. Blood pressure 170s ABG returning pH 6.8 pCO2 142 pO2 121. He was started on a bicarb drip. He is on the ventilator. White count returned at 22.8 hemoglobin 0.3. Troponin normal. There was initial potassium of 5.6, creatinine was 1.1, this was sent for recheck and to 4.3. Lactic acid returned at 15.5. Continued IV fluids. Patient was found to have a DNR CCA CODE STATUS in the system. Currently on the ventilator continue to medically manage. Chest x-ray with ETT tube in place, OG with orifice just above the diaphragm, have nursing advance. He started on broad-spectrum antibiotics Zosyn and vancomycin. Urine returned negative for infection. With patient's DNR CCA status, will continue to medically manage and avoid invasive measures at this time. Will continue fluids for hypotension. 2320: Patient sinus rhythm on the monitor heart rate in the 70s and 80s. Last blood pressure systolic 87 with a MAP of 71. 2345: I spoke with hospitalist Dr. Marte for admission to the ICU. Re-evaluation: Critical Disposition discussed with patient/family/significant other: Case discussed with consulting clinician: Hospitalist This note was generated with [employer] dictation software. It may contain incorrect words, spelling, and punctuation that were not noted in checking the note before signing. Lab Data Attestation: I reviewed the patient's lab results. Labs: Laboratory Results - last 24 hr 09/26/23 09/26/23 09/26/23 21:30 21:38 21:41 WBC 22.8 H RBC 3.51 L Hgb 11.3 L Hct 37.9 L MCV 108.0 H D MCH 32.2 H MCHC 29.8 L D RDW Std Deviation 58.9 H RDW Coeff of Tony 14.7 H Plt Count 491 H MPV 9.7 Immature Gran % (Auto) 3.900 H Neut % (Auto) 69.9 Lymph % (Auto) 15.9 L [place] % (Auto) 9.7 Eos % (Auto) 0.4 Baso % (Auto) 0.2 Absolute Neuts (auto) 15.9 H Absolute Lymphs (auto) 3.61 Nucleated RBC % 0.1 Differential Comment SCANNED Diff Path Review May foll PT 16.6 H INR 1.3 APTT 37.2 H Sodium 135 L Potassium 5.6 H Chloride 95 L Carbon Dioxide 24.0 Anion Gap 16 H BUN 25 H Creatinine 1.15 Estim Creat Clear Calc 67.84 Est GFR (MDRD) Af Amer 82 Est GFR (MDRD) Non-Af 68 BUN/Creatinine Ratio 21.7 H Glucose 198 H Lactic Acid 15.5 H* Calcium 9.6 Phosphorus Magnesium Total Bilirubin 0.30 AST 22 ALT 29 Alkaline Phosphatase 86 Troponin I High Sens 20 Total Protein 5.9 L Albumin 2.6 L Globulin 3.3 Albumin/Globulin Ratio 0.8 L Procalcitonin 0.06 Urine Color Yellow Urine Clarity Sl. Cloudy Urine pH 7.0 Ur Specific [place] 1.010 Urine Protein 15 H Urine Glucose (UA) Normal Urine Ketones Negative Urine Occult Blood Negative Urine Nitrite Negative Urine Bilirubin Negative Urine Urobilinogen Normal Ur Leukocyte Esterase Negative Urine RBC 0 SEEN Urine WBC 0-5 SEEN Ur Squamous Epith Cells 0 SEEN Urine Bacteria 1+ Urine Mucus 0 SEEN 09/26/23 22:38 WBC RBC Hgb Hct MCV MCH MCHC RDW Std Deviation RDW Coeff of Tony Plt Count MPV Immature Gran % (Auto) Neut % (Auto) Lymph % (Auto) [place] % (Auto) Eos % (Auto) Baso % (Auto) Absolute Neuts (auto) Absolute Lymphs (auto) Nucleated RBC % Differential Comment Diff Path Review PT INR APTT Sodium Potassium 4.3 Chloride Carbon Dioxide Anion Gap BUN Creatinine Estim Creat Clear Calc Est GFR (MDRD) Af Amer Est GFR (MDRD) Non-Af BUN/Creatinine Ratio Glucose Lactic Acid Calcium Phosphorus 7.8 H Magnesium 2.7 H Total Bilirubin AST ALT Alkaline Phosphatase Troponin I High Sens Total Protein Albumin Globulin Albumin/Globulin Ratio Procalcitonin Urine Color Urine Clarity Urine pH Ur Specific [place] Urine Protein Urine Glucose (UA) Urine Ketones Urine Occult Blood Urine Nitrite Urine Bilirubin Urine Urobilinogen Ur Leukocyte Esterase Urine RBC Urine WBC Ur Squamous Epith Cells Urine Bacteria Urine Mucus Radiography Diagnostic Testing: Clinical Impression(s) from Imaging Studies Chest X-Ray 09/26/23 21:55 IMPRESSION: 1. Recommend advancing enteric tube several centimeters to clear distal side-port from level of GE junction. 2. COPD. Electronically Signed: Arnav Yee MD at 22:21 EDT , Critical Care Time Critical Care Time: Yes Critical care time (excluding procedures): 30-74 minutes, Discussing w/Patient &/or Family/Vice President Of Nursing, Discussing w/Consultants, Arranging Admission or Transfer, Performing Direct Patient Care at Bedside and - (45 minutes) Discharge Plan Dx/Rx/DC Orders Clinical Impression: Hyperglycemia, Cardiopulmonary arrest with successful resuscitation, PAF (paroxysmal atrial fibrillation), Hypotension, COPD, severe, Lactic acidosis, Shock, Hypercapnic respiratory failure Disposition Disposition: Acute Care Hospital [facility]
[2023-09-26 21:39] LABS: Absolute Lymphocyte Count 3.61 X10^3/uL (0.83-4.51); Absolute Neutrophil Count 15.9 X10^3/uL (2.0-7.7); Basophil# 0.05 X10^3/uL; Basophil% 0.2 % (0-1); Eosinophil# 0.09 X10^3/uL; Eosinophils% 0.4 % (0-5); Hematocrit 37.9 % (40-54); Hemoglobin 11.3 g/dL (13.0-16.5); Lymphocyte # 3.61 X10^3/ul (0.83-4.51); Lymphocyte % 15.9 % (19-41); Mean Corp Hgb Conc 29.8 g/dL (32-36); Mean Corpuscular Hgb 32.2 pg (27.0-32.0); Mean Platelet Vol. 9.7 fl (6.2-12.0); Monocyte# 2.22 X10^3/uL; Monocyte% 9.7 % (0-10); NRBC Flagged by Analyzer 0.1 % (0-5); Neutrophil # 15.91 X10^3/uL (2.7-7.7); Neutrophil % 69.9 % (47-70); POSITIVE DIFFERENTIAL YES; Platelet Count 491 K/mm3 (150-450); RBC Distribution Width CV 14.7 % (11.6-14.6); RBC Distribution Width SD 58.9 fl (35.1-43.9); Red Blood Count 3.51 M/mm3 (4.6-6.2); White Blood Count 22.8 K/mm3 (4.4-11.0)
[2023-09-26 21:46] LABS: Mucous, Urine 0 SEEN /hpf (<or=2+); Red Blood Cells-Urine 0 SEEN /hpf (0-5); Squamous Epithelial Cells - UA 0 SEEN /hpf (0-5)
[2023-09-26 21:48] LABS: Differential Indicated SCAN CRITERIA MET; International Normalized Ratio 1.3; Partial Thromboplast Time 37.2 Seconds (24.1-36.2); Prothrombin Time (Protime)PT. 16.6 SECONDS (11.7-14.9)
[2023-09-26 21:48] LABS: Color, Urine Yellow (Yellow); Glucose, Dipstick Normal (Normal); Ketone-Dipstick Negative (Negative); Leukocyte Esterase-Dipstick Negative /ul (Negative); Nitrite-Dipstick Negative (Negative); Occult Blood-Urine Negative /ul (Negative); Protein-Dipstick 15 mg/dl (Negative); Urine Bilirubin Dipstick Negative (Negative); Urine Clarity Sl. Cloudy (Clear); Urine Urobilinogen Normal (Normal)
[2023-09-26] MEDS: 0.9% Normal Saline (1000mL) 1,000 ML 999 ML IV ×2 (21:54→23:34)
--- NOTE | 2023-09-26 21:55 | RAD_ITS ---
INDICATION: ET tube placement EXAMINATION/TECHNIQUE: X-RAY - XR Chest 1 View COMPARISON: Chest x-ray from one day prior FINDINGS: LINES/DEVICES: ET tube tip at level of clavicular heads. Enteric tube tip within proximal gastric lumen with distal side port at level of diaphragm. PEG tube also noted. LUNGS: Hyperexpanded lungs again noted. No pulmonary edema or focal airspace consolidation. No sizable pleural effusion. No pneumothorax detected. MEDIASTINUM AND CARDIOVASCULAR STRUCTURES: Heart size within normal limits. Mediastinal contours unremarkable. BONES AND SOFT TISSUES: No acute findings. RAD/Chest 1 View (Portable) IMPRESSION: 1. Recommend advancing enteric tube several centimeters to clear distal side-port from level of GE junction. 2. COPD. Electronically Signed: Arnav Yee MD at 22:21 EDT ,
[2023-09-26 22:00] LABS: Bacteria 1+ /hpf (None Seen)
[2023-09-26 22:01] LABS: White Blood Cells 0-5 SEEN /hpf (0-5)
[2023-09-26 22:09] LABS: ALB/GLOB Ratio 0.8 RATIO (0.9-2.4); AST(SGOT) 22 U/L (15-37); Alanine Aminotransfer ALT/SGPT 29 U/L (16-61); Albumin, Serum 2.6 g/dL (3.2-5.0); Alkaline Phosphatase 86 U/L (45-117); Anion Gap 16 (5-15); BUN 25 mg/dL (7-18); BUN/Creat Ratio 21.7 RATIO (10-20); Calcium,Total 9.6 mg/dL (8.5-10.1); Chloride 95 mmol/L (98-107); Creatinine, Serum 1.15 mg/dL (0.70-1.30); EST Glomerular Filtration Rate 68 mL/min (>60); Est Glom Filt Rate - Afr Amer 82 mL/min (>60); Estimated Creatinine Clearance 67.84 ml/min; Globulin 3.3 g/dL (2.2-4.2); Glucose 198 mg/dL (74-106); Potassium 5.6 mmol/L (3.5-5.1); Protein, Total 5.9 g/dL (6.4-8.2); Sodium Level 135 mmol/L (136-145); Troponin-I HS 20 pg/mL (3.0-78.0)
[2023-09-26 22:20] LABS: Differential Comment SCANNED
[2023-09-26] MEDS: Sodium Bicarbonate 50 MEQ in Dextrose 5%-Water (1000mL Bag) 1,000 ML 150 MEQ IV (22:29)
[2023-09-26 22:42] LABS: Lactic Acid 15.5 mmol/L (0.4-1.9)
[2023-09-26 22:55] LABS: Potassium 4.3 mmol/L (3.5-5.1)
[2023-09-26] MEDS: Piperacil/Tazobactam 4.5 GM in 0.9% Normal Saline (100mL MB+) 100 ML IV (23:35)
--- NOTE | 2023-09-26 23:45 | HP.PCM.HOS_ITS ---
HPI - General General Date of Admission: 09/26/23 Date of Service: 09/26/23 Chief Complaint: Dyspnea. HPI Narrative The patient is a 63 y/o M w/ PMHx: Recent Hx Erosive esophagitits w/ associated chronic anemia, PAF, COPD/Asthma, Tobacco use, Hx Throat CA s/p unclear type surgery but otherwise unclear intervention history, HTN, HLD, Severe protein calorie malnutrition, History of EtOH abuse (sober since recent presentation), Chronic Hyponatremia, discharged 09/25/23 following admission for acute on chronic hypoxic respiratory failure secondary to acute on chronic COPD exacerbation with initial concern for recurrent pneumonia possibly aspiration eventually ruled out with underlying chronic dysphagia with PEG tube in place with unfortunate ongoing noncompliance with strict n.p.o. status with prednisone taper upon discharge and continued aerosols but no antibiotic therapy as this is noted was discontinued given suspected ruled out who now represents to the [facility] ED on 09/26/2023 reportedly working outside in the heat doing yard work with onset significant dyspnea eventually collapsing into his friend's arm with EMS immediate call with no bystander CPR performed and unclear if there was a pulse however upon EMS arrival there was a pulse per their report but it was lost and route to the hospital and patient was in PEA with CPR initiated and 4 rounds of epinephrine administered as well as Narcan with initially a left humeral IO p laced and eventually ROSC achieved in the ED with intubation performed Given ED staff did not know patient's status of DNR CCA no intubation. Workup in the ED included initial presentation with patient and cardiac arrest, CPR continued with quick ROSC with initial vital signs heart rate 72, BP 108/90, respiratory rate 20, 100% on 100% FiO2, most recent repeat vitals T96.2 Temporally, heart rate 75, BP 84/62, respiratory rate 18, 89% on 100% FiO2, initial EKG with rate controlled atrial fibrillation however patient eventually converted and repeat EKG with sinus rhythm with no acute evidence of ischemia, CBC with WBC 22.8, hemoglobin 11.3, MCV 108, platelet 491 with left shift, coags with PT 16.6, INR 1.3, PTT 37.2, CMP with sodium 135, initial potassium 5.6 with repeat 4.3, chloride 95, anion gap 16, BUN/creatinine 25/1.15, glucose 198, lactic acid 15.5, hepatic profile not marked appearing. In the ED patient ministered IV vancomycin, IV Zosyn, sodium bicarb as well as 2 L normal saline. [facility] Medical History (Updated 09/27/23 @ 00:02 by Anabella Ferguson) Asthma Chronic anemia Chronic hyponatremia Chronic hypoxemic respiratory failure Chronic pulmonary aspiration COPD (chronic obstructive pulmonary disease) End stage COPD History of alcohol abuse History of GI bleed History of throat cancer History of tobacco use Hypertension Medical non-compliance PAF (paroxysmal atrial fibrillation) Severe malnutrition Home Medications albuterol sulfate 2.5 mg/3 mL (0.083 %) solution for nebulization 2.5 mg (3 mL) inhalation Q2H PRN PRN Dyspnea, wheezing #0 mL 08/21/23 [Rx Last Taken 09/22/23] lactose-reduced food with fiber 0.06 gram-1.5 kcal/mL oral liquid (Jevity 1.5 Jason) 240 ml G-tube 6X/DAY #0 mL 08/21/23 [Rx Last Taken Unknown] multivitamin-iron 9 mg-folic acid 400 mcg-calcium and minerals tablet (Therapeutic-M) 1 tab feeding tube BREAKFAST #0 tabs 08/21/23 [Rx Last Taken 09/21/23] acetaminophen 325 mg tablet 650 mg feeding tube Q4H PRN PRN Fever, pain 1-03/0508/28/23 [History Last Taken Unknown] carvedilol 6.25 mg tablet 6.25 mg feeding tube BIDCM 30 days #60 tabs 09/19/23 [Rx Last Taken 09/22/23] guaifenesin 200 mg/5 mL oral liquid 600 mg (15 mL) feeding tube Q4H PRN congestion #118 mL 09/19/23 [Rx Last Taken Unknown] lansoprazole 15 mg capsule,delayed release 30 mg (2 x 15 mg) G-tube DAILY 1 month #60 caps 09/19/23 [Rx Last Taken 09/21/23] magnesium oxide 400 mg feeding tube DAILY 1 month #30 caps 09/19/23 [Rx Last Taken 09/21/23] melatonin 5 mg capsule 5 mg feeding tube DAILY 30 days #30 caps 09/19/23 [Rx Last Taken 09/21/23] metoclopramide HCl 10 mg tablet (Reglan) 10 mg feeding tube Q8 1 month #90 tabs 09/19/23 [Rx Last Taken 09/22/23] nicotine 14 mg/24 hr daily transdermal patch 14 mg transdermal DAILY #28 ea 09/19/23 [Rx Last Taken Unknown] dexamethasone 0.5 mg/5 mL oral elixir 1 mg (10 mL) PO DAILY #50 mL 09/21/23 [Rx Last Taken Unknown] ipratropium 0.5 mg-albuterol 3 mg (2.5 mg base)/3 mL nebulization soln 3 ml inhalation Q4HWA.RT PRN SOB 1 month #180 mL 09/23/23 [Rx Last Taken Unknown] albuterol sulfate 90 mcg/actuation aerosol inhaler 2 puff inhalation Q6H PRN shortness of breath or wheezing 1 month #8.5 grams 09/25/23 [Rx Last Taken Unknown] prednisone 10 mg tablet 10 mg feeding tube DAILY #30 tabs 09/25/23 [Rx Last Taken Unknown] Allergy/AdvReac Type Severity Reaction Status Date / Time No Known Allergies Allergy Verified 09/25/23 18:07 Family History Mother No problems noted. Father No problems noted. Surgical History History of throat surgery Social History household members: none housing: residential current occupational status: employed Smoking Status: Current every day smoker tobacco type: cigarettes how long ago did patient quit smoking: Quit during most recent admission 08/11/23. alcohol intake: former details: Prior 5 shots hard liquor, several beers daily, none since 07/2023 admission substance use type: does not use ROS Review of Systems ROS Unobtainable: due to encephalopathy and due to endotracheal tube Vital Signs Vital Signs Vital Signs: 09/26/23 21:17 09/26/23 21:15 09/26/23 21:24 Temperature 97 F L Temperature Source Temporal Pulse Rate 72 Pulse Rate [1] 0 L Respiratory Rate 20 H Respiratory Pattern Blood Pressure 108/90 H Blood Pressure Mean 96 Pulse Ox Oxygen Delivery Method Ambu-Bag Oxygen Flow Rate (L/min) Fraction of Inspired Oxygen (FIO2) 09/26/23 21:46 09/26/23 21:45 09/26/23 21:55 Temperature Temperature Source Pulse Rate 86 87 Pulse Rate [1] Respiratory Rate 20 H 22 H Respiratory Pattern Normal Blood Pressure 93/66 Blood Pressure Mean 75 Pulse Ox 100 59 Oxygen Delivery Method Mechanical Ventilator Mechanical Ventilator Oxygen Flow Rate (L/min) 100 Fraction of Inspired Oxygen (FIO2) 100 09/26/23 22:16 09/26/23 21:59 09/26/23 22:00 Temperature Temperature Source Pulse Rate 80 88 88 Pulse Rate [1] Respiratory Rate 21 H 23 H 23 H Respiratory Pattern Blood Pressure 68/54 L 70/60 L Blood Pressure Mean 58 66 Pulse Ox Oxygen Delivery Method Mechanical Ventilator Oxygen Flow Rate (L/min) 100 Fraction of Inspired Oxygen (FIO2) 09/26/23 22:15 09/26/23 22:30 09/26/23 23:07 Temperature 96.0 F L Temperature Source Temporal Pulse Rate 78 73 Pulse Rate [1] Respiratory Rate 19 H 18 Respiratory Pattern Blood Pressure 68/54 L 67/56 L 87/65 L Blood Pressure Mean 61 61 72 Pulse Ox Oxygen Delivery Method Mechanical Ventilator Oxygen Flow Rate (L/min) 100 Fraction of Inspired Oxygen (FIO2) 09/26/23 23:00 09/26/23 23:30 Temperature 96.0 F L 96.2 F L Temperature Source Temporal Temporal Pulse Rate 74 75 Pulse Rate [1] Respiratory Rate 20 H 18 Respiratory Pattern Blood Pressure 87/63 L 84/62 L Blood Pressure Mean 71 69 Pulse Ox 90 89 Oxygen Delivery Method Mechanical Ventilator Mechanical Ventilator Oxygen Flow Rate (L/min) 100 Fraction of Inspired Oxygen (FIO2) Weight Weight: 165 lb 2.02 oz Body Mass Index (BMI) 21.2 Physical Exam Narrative Physical Examination: General: Intubated, not alert, not oriented, cachectic appearing, hypotensive on monitor, oxygenation status vacillating with decent waveform. Skin: Normal color, normal turgor, no icterus, no cyanosis except occasional staged ecchymoses, bilateral lower extremity venous stasis skin changes. HEENT: AT/NC, EOM unable to be assessed given intubated status, PERRLA, intubated, dry MM, no obvious carotid bruit or JVD noted. Lungs: Severely diminished, greater bases, symmetric rise, intubated status, occasional end expiratory wheeze, no significant rales or rhonchi. Heart: Irregular, regular rate currently; no gallop, rub audible. Abdomen: Soft, thin cachectic habitus, no grimace with palpation but intubated and sedated, no marked distention, distant BS, no appreciated HSM. Extremities: No cyanosis, no clubbing, no marked peripheral edema. Neurological: Intubated, not alert, not oriented, cachectic appearing, h ypotensive on monitor, oxygenation status vacillating with decent waveform, cognitive function not baseline intact; pupils equally reactive to light and accommodation, cranial nerves unable to be assessed given intubated status, strength accordingly severely globally decreased. Psychiatric: Affect appears flat, intubated, patient with underlying anxiety and likely depression. Results Lab / Micro Data 09/26/23 21:30 09/26/23 22:38 Labs: Laboratory Results - last 24 hr 09/26/23 21:30: WBC 22.8 H, RBC 3.51 L, Hgb 11.3 L, Hct 37.9 L, MCV 108.0 H D, MCH 32.2 H, MCHC 29.8 L D, RDW Std Deviation 58.9 H, RDW Coeff of Tony 14.7 H, Plt Count 491 H, MPV 9.7, Immature Gran % (Auto) 3.900 H, Neut % (Auto) 69.9, Lymph % (Auto) 15.9 L, [place] % (Auto) 9.7, Eos % (Auto) 0.4, Baso % (Auto) 0.2, Absolute Neuts (auto) 15.9 H, Absolute Lymphs (auto) 3.61, Nucleated RBC % 0.1, Differential Comment SCANNED, Diff Path Review September, PT 16.6 H, INR 1.3, APTT 37.2 H, Sodium 135 L, Potassium 5.6 H, Chloride 95 L, Carbon Dioxide 24.0, Anion Gap 16 H, BUN 25 H, Creatinine 1.15, Estim Creat Clear Calc 67.84, Est GFR (MDRD) Af Amer 82, Est GFR (MDRD) Non-Af 68, BUN/Creatinine Ratio 21.7 H, Glucose 198 H, Calcium 9.6, Total Bilirubin 0.30, AST 22, ALT 29, Alkaline Phosphatase 86, Troponin I High Sens 20, Total Protein 5.9 L, Albumin 2.6 L, Globulin 3.3, Albumin/Globulin Ratio 0.8 L 09/26/23 21:38: Lactic Acid 15.5 H* 09/26/23 21:41: Urine Color Yellow, Urine Clarity Sl. Cloudy, Urine pH 7.0, Ur Specific [place] 1.010, Urine Protein 15 H, Urine Glucose (UA) Normal, Urine Ketones Negative, Urine Occult Blood Negative, Urine Nitrite Negative, Urine Bilirubin Negative, Urine Urobilinogen Normal, Ur Leukocyte Esterase Negative, Urine RBC 0 SEEN, Urine WBC 0-5 SEEN, Ur Squamous Epith Cells 0 SEEN, Urine Bacteria 1+, Urine Mucus 0 SEEN 09/26/23 22:38: Potassium 4.3 Imaging Radiology Impression Chest X-Ray 09/26/23 21:55 IMPRESSION: 1. Recommend advancing enteric tube several centimeters to clear distal side-port from level of GE junction. 2. COPD. Electronically Signed: Arnav Yee MD at 22:21 EDT , Assessment & Plan Assessment/Plan (1) Cardiopulmonary arrest with successful resuscitation: PLAN: Plan The patient is a 63 y/o M w/ PMHx: Recent Hx Erosive esophagitits w/ associated chronic anemia, PAF, COPD/Asthma, Tobacco use, Hx Throat CA s/p unclear type surgery but otherwise unclear intervention history, HTN, HLD, Severe protein calorie malnutrition, History of EtOH abuse (sober since recent presentation), Chronic Hyponatremia, discharged 09/25/23 following admission for acute on chronic hypoxic respiratory failure secondary to acute on chronic COPD exacerbation with initial concern for recurrent pneumonia possibly aspiration eventually ruled out with underlying chronic dysphagia with PEG tube in place with unfortunate ongoing noncompliance with strict n.p.o. status with prednisone taper upon discharge and continued aerosols but no antibiotic therapy as this is noted was discontinued given suspected ruled out who now represents to the [facility] ED on 09/26/2023 reportedly working outside in the heat doing yard work with onset significant dyspnea eventually collapsing into his friend's arm with EMS immediate call. #1. Acute hypoxic and hypercarbic respiratory failure with resulting cardiopulmonary arrest suspected secondary to Acute on Chronic COPD exacerbation recently discharged reportedly outside working in the yard despite his recent prolonged admission with associated shock, suspect related with arrest with significant lactic acidosis again potentially related with prolonged hypoxia and arrest: CXR w/ chronic changes, CBC on admission w/ significant WBC elevation 22.8 with left shift however patient had just had significant arrest and certainly could be a component of reactivity in addition to the fact he is on steroids, CMP not marked appearing, initial lactic acid significant elevated 15.5, no initial ABG ordered per ED physician. Blood culture x 2 pending per ED, respiratory culture pending per ED, urine culture pending per ED. Will adm it to the ICU, continue manufacturing lead consultation per protocol, will continue intubated and sedated status however patient is a DNR CCA and was prior to this current presentation no intubation as well but unfortunately his CODE STATUS was not known and he was intubated upon immediate arrival into the ED. At this point we will continue intubated status, maintain on ATC duonebs, PRN albuterol, hold patient oral prednisone therapy and transition back to IV methylprednisolone, HOB, IS parameters, will obtain sputum Cx, urine antigens, procalcitonin, administer broad-spectrum antibiotic therapy in the ED, will maintain on IV Zosyn given possibility of aspiration with this most recent event, maintain n.p.o. status given patient chronic aspiration risk, will allow tube feeds to be initiated if clinically stable, monitor blood pressure and continue fluid administration with suspected hypotension primarily secondary to shock with cardiopulmonary arrest, low suspicion for septic etiology but ongoing evaluation, MRSA screen requested, Mag and Phos requested. ECHO requested. #2. Acute hyperglycemia, possible reactive: Admission glucose notably elevated 198, suspect likely reactive with his presentation and recent steroid usage, hemoglobin A1c obtained to be cautious. #3. Acute Kidney Injury: Secondary to acute presentation #1 with shock in the setting of cardiopulmonary arrest, admission BUN/creatinine 25/1.15, GFR 68, previous creatinine baseline primarily 0.5-0.8, last just prior to current presentation 09/25/2023 creatinine 0.51, will continue judicious hydration, repeat CMP in AM. #4. PAF: Patient with noted previous history, in the ED initially in atrial fibrillation rate controlled eventually converted with repeat EKG with sinus rhythm transition, holding Coreg given hypotensive presentation currently, not chronically anticoagulated given history of anemia with recent history of erosive esophagitis concurrently. #5. History of erosive esophagitis with esophageal candidiasis, GI bleed with acute on chronic anemia: Will continue strict n.p.o. status, G-tube in place with ongoing feeds once assure safe, will maintain on PPI, no longer on any antifungal therapy per review of current regimen, admission hemoglobin 11.3, MCV 108, will continue to trend CBC. #6. Chronic hyponatremia: Patient with history of alcohol abuse, likely related, admission sodium 135, chloride 95, similar to previous baseline low 130 range, will continue to just hydration, repeat CMP in AM. #7. History of alcohol abuse: Patient currently intubated but once extubated will encourage continued sobriety. #8. History of tobacco use: Encourage continued tobacco cessation. #9. History throat cancer: Unclear specific type, status post resection but unclear specific intervention and unclear interventions further for his cancer, encourage continued outpatient follow-up as previously arranged with oncology. #10. Severe protein calorie malnutrition: Evidenced by significantly reduced BMI, obvious muscle and fat loss, cachectic appearing, nutrition consulted for recommendations, continue tube feeds. #11. Hypertension: Holding Coreg given hypotensive presentation as noted. #12. Hyperlipidemia: Not on regimen, defer to outpatient. #13. DVT prophylaxis: Lovenox cautiously. #14. CODE status: Several recent admissions and discussions at length with patient and he does not have healthcare power of assistant health educator or living will in place but has frequently noted that he would want his friend to make decisions for him, [place] Salazar. Have had several previous discussions including within the last 30 days regarding CODE status including difference between FULL code, DNR-CCA and DNR-CC status and patient has confirmed several times DNR-CCA, no intubation. Unfortunately upon ED arrival this was unknown and also by EMS with intubated current status status post CPR with ROSC. Will continue intubation but if for some reason patient is extubated will maintain at this point DNR CCA no intubation as per his previous frequent request. Charges/Coding Visit Charges Inpatient E&M: 61372 Init Hosp L3
[2023-09-27] VITALS (27 sets, daily range): BP systolic 81–149; BP diastolic 52–127; PULSE 79–94; RESP 12–24; TEMP 35.7–36.8; O2SAT 85–99; BMI 17.5
[2023-09-27 00:04] LABS: Allen Test Positive; Base Excess 4 mmol/L (-2 to +2); Blood Gas Specimen Type ART; Mode AC; O2 Delivery Device Adult Vent; PEEP 5; PO2 346 mmHG (75-100); RR 18; SITE L Radial; SO2 100 % (95-99); Total Carbon Dioxide 31 mmol/L; pCO2 51.6 mmHg (35-45); pH 7.36 (7.35-7.45)
[2023-09-27] MEDS: Vancomycin HCl 1,750 MG in 0.9% Normal Saline (500mL Bag) 500 ML 250 MG IV (00:08)
--- NOTE | 2023-09-27 00:10 | ED.RN ---
[facility] called and reported they were not going to follow his case for donation due to his living will stating he did not want to donate.
[2023-09-27 00:11] LABS: Magnesium 2.7 mg/dL (1.6-2.6); Phosphorus 7.8 mg/dL (2.5-4.9)
--- NOTE | 2023-09-27 00:24 | ED.RN ---
og advance approximately 3cm, Dr Dempsey said do not need to confirm with x-ray.
[2023-09-27 00:30] LABS: Procalcitonin 0.06 ng/mL (0.00-0.09)
[2023-09-27] MEDS: Metoclopramide 10 MG Tablet GT (01:23)
[2023-09-27] MEDS: 0.9% Normal Saline (1000mL) 1,000 ML 100 ML IV (01:35)
[2023-09-27] MEDS: fentaNYL drip 100 ML 2.5 MCG CONT INF (01:36)
[2023-09-27 01:41] LABS: Allen Test POS; Blood Gas Specimen Type ART; O2 Delivery Device BAGGING; SITE L RADIAL
[2023-09-27 01:42] LABS: Bicarbonate 22.5 mmol/L (22-26); PO2 122 mmHG (75-100); Time Given 2143; pCO2 142.2 mmHg (35-45); pH 6.81 (7.35-7.45)
[2023-09-27 01:42] LABS: Reflex Lactate? Y
[2023-09-27 01:43] LABS: Base Excess -12 mmol/L (-2 to +2); SO2 92 % (95-99); Total Carbon Dioxide 27 mmol/L
[2023-09-27] MEDS: Propofol 10MG/Ml 1,000 MG/100 ML Bottle 4.5 MG CONT INF (02:48)
[2023-09-27 03:04] LABS: Lactic Acid 4.2 mmol/L (0.4-1.9)
[2023-09-27 03:08] LABS: Troponin-I HS 244 pg/mL (3.0-78.0)
--- NOTE | 2023-09-27 03:23 | NURSING ---
Patient was having many jerking movements, blood pressure was significantly increased, patient seems uncomfortable. He is posturing and withdrawing to pain. Propofol was started. Patient has had very few jerking episodes since.
[2023-09-27] MEDS: Ipratropium/Albuterol Sulfate 3 ML AMPUL.NEB INHALATION ×2 (03:40→07:10)
[2023-09-27] MEDS: Piperacil/Tazobactam 3.375 GM in 0.9% Normal Saline (50mL MB+) 50 ML IV (05:11)
[2023-09-27 05:28] LABS: Absolute Neutrophil Count 26.3 X10^3/uL (2.0-7.7); Basophil# 0.03 X10^3/uL; Basophil% 0.1 % (0-1); Hematocrit 28.1 % (40-54); Hemoglobin 9.4 g/dL (13.0-16.5); Lymphocyte % 1.1 % (19-41); Mean Corp Hgb Conc 33.5 g/dL (32-36); Mean Corpuscular Hgb 32.9 pg (27.0-32.0); Mean Corpuscular Volume 98.3 fL (80-94); Mean Platelet Vol. 9.4 fl (6.2-12.0); Monocyte# 1.17 X10^3/uL; Monocyte% 4.2 % (0-10); NRBC Flagged by Analyzer 0 % (0-5); Neutrophil # 26.34 X10^3/uL (2.7-7.7); Neutrophil % 93.9 % (47-70); POSITIVE DIFFERENTIAL YES; Platelet Count 346 K/mm3 (150-450); RBC Distribution Width CV 14.6 % (11.6-14.6); RBC Distribution Width SD 51.9 fl (35.1-43.9); Red Blood Count 2.86 M/mm3 (4.6-6.2); White Blood Count 28.1 K/mm3 (4.4-11.0)
[2023-09-27 05:42] LABS: Differential Indicated SCAN CRITERIA MET
[2023-09-27 05:57] LABS: Troponin-I HS 215 pg/mL (3.0-78.0)
[2023-09-27 06:30] LABS: ALB/GLOB Ratio 0.8 RATIO (0.9-2.4); AST(SGOT) 50 U/L (15-37); Alanine Aminotransfer ALT/SGPT 42 U/L (16-61); Albumin, Serum 1.6 g/dL (3.2-5.0); Alkaline Phosphatase 49 U/L (45-117); Anion Gap 6 (5-15); BUN 21 mg/dL (7-18); BUN/Creat Ratio 34.4 RATIO (10-20); Calcium,Total 5.8 mg/dL (8.5-10.1); Chloride 111 mmol/L (98-107); Creatinine, Serum 0.61 mg/dL (0.70-1.30); EST Glomerular Filtration Rate 141 mL/min (>60); Est Glom Filt Rate - Afr Amer 170 mL/min (>60); Estimated Creatinine Clearance 80.73 ml/min; Globulin 2.1 g/dL (2.2-4.2); Glucose 123 mg/dL (74-106); Potassium 2.7 mmol/L (3.5-5.1); Protein, Total 3.7 g/dL (6.4-8.2); Sodium Level 141 mmol/L (136-145)
--- NOTE | 2023-09-27 07:03 | CON.PCM.CC_ITS ---
Assessment & Plan Assessment/Plan (1) Acute and chronic respiratory failure with hypoxia: (2) Cardiopulmonary arrest with successful resuscitation: PLAN: Plan RECOMMENDATIONS: 1. Proceed with terminal extubation, per POA request. 2. Referral to be placed to hospice care services. 3. CODE STATUS to be updated to DNR CC IMPRESSIONS: 1. Acute on chronic combined respiratory failure/PEA cardiac arrest Again, most likely secondary to outpatient noncompliance with prescribed medical therapy and ongoing p.o. intake with subsequent aspiration, despite recommendations to the contrary. The patient appears to have sustained a si gnificant anoxic insult. He was placed empirically on antibiotics, bronchodilators and steroids. At this time, it is requested the patient's POA to proceed with terminal extubation and initiation of comfort care measures. 2. Encephalopathy Most likely secondary to significant anoxic insult sustained as a consequence of his PEA cardiac arrest. Management as noted above. 3. Severe protein calorie malnutrition/history of anemia/history of tobacco dependency/history of throat CA/hypertension/hyperlipidemia Complicates care, management, recovery and prognosis. Management as noted above. TIME: 34 minutes of critical care time, independent of procedures, was spent addressing the patient's acute on chronic combined respiratory failure, PEA cardiac arrest, suspected anoxic encephalopathy, review of all data and collaboration with the care team. HPI Consult Data Date of Consult: 09/27/23 HPI Narrative Reason for Consultation: Acute on chronic respiratory failure, PEA arrest HPI Narrative: The patient is a 63-year-old male, with a history as outlined below, who presented to the emergency department via EMS with shortness of breath. The patient is well-known for frequent hospitalizations, predominantly secondary to medication noncompliance in the setting of COPD, chronic hypoxemic respiratory failure and recurrent aspiration. According to documentation, the patient collapsed in front of a friend, with bystander CPR initiated. EMS apparently had a pulse upon arrival but lost it while in route. He was subsequently treated for PEA cardiac arrest with multiple rounds of epinephrine, with eventual ROSC. According to Salinas, the patient's friend, the patient did go out to eat after being discharged home 2 days ago, following admission for COPD exacerbation related to recurrent aspiration. The patient was clearly advised n ot to take in nutrition by mouth. The patient has an extensive tobacco abuse history, but does not currently follow with an outpatient matrix worker. It is unclear as to whether he has ever had PFTs completed in the past. However, there is documentation that he has a history of COPD and chronic hypoxemic respiratory failure with a baseline oxygen requirement of 6 L/min. The patient's medical history is significant for throat cancer, severe protein calorie malnutrition and frequent hospitalizations for COPD exacerbations related to aspiration. The patient has a an extensive history of medical noncompliance in the setting of severe dysphagia and continued p.o. intake, despite recommendations by speech therapy to the contrary. Initial laboratory evaluation revealed a white blood cell count of 23,000. Initial ABG demonstrated a pH of 6.8 with a pCO2 of 142 and pO2 of 122. Chemistry profile was notable for a potassium of 5.6 with normal creatinine. Lactate was elevated at 15. Troponin was increased to 244. The patient was intubated with subsequent chest imaging demonstrated no acute cardiopulmonary process. The patient was once again placed empirically on antibiotics, bronch odilators and steroids. He was admitted to the medical intensive care unit for further management. This morning, the patient remains nonresponsive and is demonstrating myoclonic jerking. I did personally meet with the patient's POA, Salinas, at the bedside to discuss future goals of care. The patient was previously documented to be a DNR CCA without intubation. Following my discussion with the patient's POA, the decision was made to proceed with terminal extubation and initiation of comfort care measures. [facility] Medical History (Updated 09/27/23 @ 00:02 by Anabella Ferguson) Asthma Chronic anemia Chronic hyponatremia Chronic hypoxemic respiratory failure Chronic pulmonary aspiration COPD (chronic obstructive pulmonary disease) End stage COPD History of alcohol abuse History of GI bleed History of throat cancer History of tobacco use Hypertension Medical non-compliance PAF (paroxysmal atrial fibrillation) Severe malnutrition Home Medications albuterol sulfate 2.5 mg/3 mL (0.083 %) solution for nebulization 2.5 mg (3 mL) inhalation Q2H PRN PRN Dyspnea, wheezing #0 mL 08/21/23 [Rx Last Taken 09/22/23] lactose-reduced food with fiber 0.06 gram-1.5 kcal/mL oral liquid (Jevity 1.5 Jason) 240 ml G-tube 6X/DAY #0 mL 08/21/23 [Rx Last Taken Unknown] multivitamin-iron 9 mg-folic acid 400 mcg-calcium and minerals tablet (Therapeutic-M) 1 tab feeding tube BREAKFAST #0 tabs 08/21/23 [Rx Last Taken 09/21/23] acetaminophen 325 mg tablet 650 mg feeding tube Q4H PRN PRN Fever, pain 1-03/0508/28/23 [History Last Taken Unknown] carvedilol 6.25 mg tablet 6.25 mg feeding tube BIDCM 30 days #60 tabs 09/19/23 [Rx Last Taken 09/22/23] guaifenesin 200 mg/5 mL oral liquid 600 mg (15 mL) feeding tube Q4H PRN congestion #118 mL 09/19/23 [Rx Last Taken Unknown] lansoprazole 15 mg capsule,delayed release 30 mg (2 x 15 mg) G-tube DAILY 1 month #60 caps 09/19/23 [Rx Last Taken 09/21/23] magnesium oxide 400 mg feeding tube DAILY 1 month #30 caps 09/19/23 [Rx Last Taken 09/21/23] melatonin 5 mg capsule 5 mg feeding tube DAILY 30 days #30 caps 09/19/23 [Rx Last Taken 09/21/23] metoclopramide HCl 10 mg tablet (Reglan) 10 mg feeding tube Q8 1 month #90 tabs 09/19/23 [Rx Last Taken 09/22/23] nicotine 14 mg/24 hr daily transdermal patch 14 mg transdermal DAILY #28 ea 09/19/23 [Rx Last Taken Unknown] dexamethasone 0.5 mg/5 mL oral elixir 1 mg (10 mL) PO DAILY #50 mL 09/21/23 [Rx Last Taken Unknown] ipratropium 0.5 mg-albuterol 3 mg (2.5 mg base)/3 mL nebulization soln 3 ml inhalation Q4HWA.RT PRN SOB 1 month #180 mL 09/23/23 [Rx Last Taken Unknown] albuterol sulfate 90 mcg/actuation aerosol inhaler 2 puff inhalation Q6H PRN shortness of breath or wheezing 1 month #8.5 grams 09/25/23 [Rx Last Taken Unknown] prednisone 10 mg tablet 10 mg feeding tube DAILY #30 tabs 09/25/23 [Rx Last Ta marisol Unknown] Allergy/AdvReac Type Severity Reaction Status Date / Time No Known Allergies Allergy Verified 09/25/23 18:07 Family History Mother No problems noted. Father No problems noted. Surgical History History of throat surgery Social History household members: none housing: [facility] current occupational status: employed Smoking Status: Current every day smoker tobacco type: cigarettes how long ago did patient quit smoking: Quit during most recent admission 08/11/23. alcohol intake: former details: Prior 5 shots hard liquor, several beers daily, none since 07/2023 a dmission substance use type: does not use ROS Review of Systems ROS Unobtainable: due to endotracheal tube and due to mental status Physical Exam Const Constitutional Narrative: Intubated and mechanically ventilated. Comatose on the ventilator. Frail and cachectic in appearance. HEENT normocephalic and head/scalp atraumatic Mouth: endotracheal tube in place and OG tube in place Eyes PERRL Neck supple General: trachea midline Chest inspection of chest normal Resp Auscultation: diminished lung sounds; Negative for rales, rhonchi or wheezes Cardio regular rate and regular rhythm GI normal to inspection, nondistended, normoactive bowel sounds Extremity no clubbing, cyanosis or edema Skin no rashes or lesions noted Neuro Neuro Narrative: Notable myoclonic jerking Lab / Micro Data 09/27/23 05:18 09/27/23 05:18 Labs: Laboratory Results - last 24 hr 09/26/23 21:30: WBC 22.8 H, RBC 3.51 L, Hgb 11.3 L, Hct 37.9 L, MCV 108.0 H D, MCH 32.2 H, MCHC 29.8 L D, RDW Std Deviation 58.9 H, RDW Coeff of Tony 14.7 H, Plt Count 491 H, MPV 9.7, Immature Gran % (Auto) 3.900 H, Neut % (Auto) 69.9, Lymph % (Auto) 15.9 L, [place] % (Auto) 9.7, Eos % (Auto) 0.4, Baso % (Auto) 0.2, Absolute Neuts (auto) 15.9 H, Absolute Lymphs (auto) 3.61, Nucleated RBC % 0.1, Differential Comment SCANNED, Diff Path Review September foll, PT 16.6 H, INR 1.3, APTT 37.2 H, Sodium 135 L, Potassium 5.6 H, Chloride 95 L, Carbon Dioxide 24.0, Anion Gap 16 H, BUN 25 H, Creatinine 1.15, Estim Creat Clear Calc 67.84, Est GFR (MDRD) Af Amer 82, Est GFR (MDRD) Non-Af 68, BUN/Creatinine Ratio 21.7 H, Glucose 198 H, Calcium 9.6, Total Bilirubin 0.30, AST 22, ALT 29, Alkaline Phosphatase 86, Troponin I High Sens 20, Total Protein 5.9 L, Albumin 2.6 L, Globulin 3.3, Albumin/Globulin Ratio 0.8 L, Procalcitonin 0.06 09/26/23 21:38: Lactic Acid 15.5 H* 09/26/23 21:41: Urine Color Yellow, Urine Clarity Sl. Cloudy, Urine pH 7.0, Ur Specific [place] 1.010, Urine Protein 15 H, Urine Glucose (UA) Normal, Urine Ketones Negative, Urine Occult Blood Negative, Urine Nitrite Negative, Urine Bilirubin Negative, Urine Urobilinogen Normal, Ur Leukocyte Esterase Negative, Urine RBC 0 SEEN, Urine WBC 0-5 SEEN, Ur Squamous Epith Cells 0 SEEN, Urine Bacteria 1+, Urine Mucus 0 SEEN 09/26/23 22:38: Potassium 4.3, Phosphorus 7.8 H, Magnesium 2.7 H 09/27/23 02:25: Lactic Acid 4.2 H*, Troponin I High Sens 244 H* 09/27/23 05:18: WBC 28.1 H, RBC 2.86 L, Hgb 9.4 L, Hct 28.1 L, MCV 98.3 H D, MCH 32.9 H, MCHC 33.5 D, RDW Std Deviation 51.9 H, RDW Coeff of Tony 14.6, Plt Count 346, MPV 9.4, Immature Gran % (Auto) 0.700, Neut % (Auto) 93.9 H, Lymph % (Auto) 1.1 L, [place] % (Auto) 4.2, Eos % (Auto) 0.0, Baso % (Auto) 0.1, Absolute Neuts (auto) 26.3 H, Absolute Lymphs (auto) 0.30 L, Nucleated RBC % 0, Sodium 141, Pot assium 2.7 L*, Chloride 111 H, Carbon Dioxide 24.0, Anion Gap 6, BUN 21 H, Creatinine 0.61 L, Estim Creat Clear Calc 80.73, Est GFR (MDRD) Af Amer 170, Est GFR (MDRD) Non-Af 141, BUN/Creatinine Ratio 34.4 H, Glucose 123 H, Calcium 5.8 L*, Total Bilirubin 0.30, AST 50 H, ALT 42, Alkaline Phosphatase 49, Troponin I High Sens 215 H*, Total Protein 3.7 L, Albumin 1.6 L, Globulin 2.1 L, Albumin/Globulin Ratio 0.8 L Micro: Microbiology 09/26/23 21:41 Urine Catheter - Shah Streptococcus pneumoniae Antigen (M - Final 09/26/23 21:41 Urine Catheter - Shah Legionella Antigen - Final ABG Data ABG results: ABG 09/26/23 09/26/23 21:43 23:59 Specimen Type ART ART Sample Site L RADIAL L Radial pH 6.81 L* 7.36 Bicarbonate Actual 22.5 29.0 H Total CO2 27 31 Base Excess -12 L 4 H O2 Saturation 92 L 100 H O2 % 100.0 ABG pCO2 142.2 H* 51.6 H ABG pO2 122 H 346 H* Javier Test POS Positive Respiration Rate 18 O2 Delivery Device BAGGING Adult Vent Liter Flow 15.0 Vent Mode AC Tidal Volume 500.0 POC PEEP 5 Crit Call To/Read Back Yes Yes Blood Gas Notified Whom ED MD Dempsey Blood Gas Notified Time 2142 00:01:[address] Dempsey notified Imaging Radiology Impression Chest X-Ray 09/26/23 21:55 IMPRESSION: 1. Recommend advancing enteric tube several centimeters to clear distal side-port from level of GE junction. 2. COPD. Electronically Signed: Arnav Yee MD at 22:21 EDT , Charges/Coding Procedures Hospitalists Procedures: [id number] Critical Care 1st Hr
[2023-09-27 07:14] LABS: Differential Comment SCANNED
[2023-09-27 08:01] LABS: Hemoglobin A1c 5.7 % (3.8-5.6)
[2023-09-27] MEDS: Chlorhexidine 15 ML PO (09:22)
[2023-09-27] MEDS: Magnesium Chloride 64 MG Delay Rel.Tablet 128 MG PO (09:23)
[2023-09-27] MEDS: Enoxaparin 40 MG/0.4 ML Syringe SC (09:23)
[2023-09-27] MEDS: Lansoprazole 15 MG Capsule.DR 30 MG GT (09:23)
--- NOTE | 2023-09-27 09:40 | CASEMGMT ---
RN informed SW that plan is likely going to be to withdrawal care. Patient's Healthcare POA and alternate are coming in around 1030 to make final decision. SW available as needed. Estelita Ferrari PLASTIC SURGERY TECHNICIAN INO
--- NOTE | 2023-09-27 10:21 | NURSING ---
Personal Belongings given to MARIAN Niño
--- NOTE | 2023-09-27 10:43 | CASEMGMT ---
SW met with patient's Healthcare Power of Freight Handler Salinas Salazar and alternate Salinas Wilson. They are going to withdrawal care. They were concerned about what will happen with patient's stuff and his burial/cremation etc. SW explained they will not be financially responsible. Patient assigned them as his Healthcare Power of Freight Handler and once patient passes the Healthcare POA is null and void. The physician then came to patient's room to talk. SW stepped out. Estelita Ferrari DISTRICT BRANCH MANAGER INO
--- NOTE | 2023-09-27 11:13 | CASEMGMT ---
Once patient passes his body will have to go to the morgue as there is no family to make decisions on where to send patient. Appropriate people at [facility] are aware. Estelita MCKINNON
--- NOTE | 2023-09-27 11:25 | CASEMGMT ---
TORIN CHENG NOTE: MYRON received from [facility] stating she has still been unsuccessful w/reaching pt. TORIN CHENG called Eryn back and updated that care is being withdrawn today. Michelle CALVERTN LILY CM
[2023-09-27] MEDS: LORazepam 2 MG/ML Syringe 1 MG IV ×3 (11:39→18:30)
[2023-09-27 12:40] LABS: CPK Total, Creatine Kinase 195 U/L (39-308); Triglycerides 65 mg/dL
--- NOTE | 2023-09-27 12:54 | CASEMGMT ---
Per physician patient is doing better than expected and would like Hospice consulted. SW contacted patient's Healthcare Power of Orthotics Assistant, Salinas Salazar and alternate Salinas Wilson. SW left voice mails for both gentleman. Await return calls as Salinas will have to sign consent for Hospice. Estelita Ferrari SCREEN PRINTING MACHINE LOADER UNLOADER INO
--- NOTE | 2023-09-27 13:15 | CHAPLAIN ---
Type of Pastoral Visit ___ Initial Visit ___ Follow-up Visit ___ On-call Visit ___ General Patient Visit ___ Spiritual Assessment ___ Family Conference ___ Bereavement ___ Rapid Response ___ Code Blue _x__ Other (describe below) Pastoral Care Referral From ___ Patient ___ Family ___ Nurse ___ Physician ___ Sr. Manager Corporate Communications ___ Sample Paster _x__ Other (describe below) Sacrament/Intervention ___ Active listening ___ Anointing ___ Roman Catholic ___ Bereavement ___ Communion ___ Reena exploration ___ ___ Life review _x__ Prayer ___ Reconciliation ___ Sacrament of Sick _x__ Supportive presence ___ Wedding ___ Other (describe below) Pastoral Comments patient was being extubated and family had left the hospital and would not be returning with expectation that pt will ; sat at bedside of patient after extubation and offered prayers for him so that he would not be alone
[2023-09-27] MEDS: Morphine 2 MG/ML Syringe IV (13:32)
--- NOTE | 2023-09-27 13:44 | CASEMGMT ---
LONI received a call from Salinas Salazar. SW explained physician would like Hospice consulted as patient is doing better than anticipated off the vent. Salinas is agreeable to talking with Hospice and having patient transferred to Hospice. SW explained SW will make a referral and someone from Hospice will contact him to set up a time to meet. Salinas was agreeable. LONI called Hospice and spoke with Tono regarding referral. SW also faxed information including Healthcare Power of Press Tender Short Goods papers. Estelita Ferrari ENTERPRISE ENGINEER INO
[2023-09-27 14:33] LABS: Pathologist Review Reviewed
--- NOTE | 2023-09-27 14:36 | CASEMGMT ---
Hospice called and stated a nurse will be at [facility] in an hour to meet with patient and HCPOA. SW notified RN. Estelita MCKINNON
--- NOTE | 2023-09-27 15:55 | PN_ITS ---
Subjective Subjective Patient seen and examined. He was intubated and sedated. Unable to do review of systems as he was intubated and sedated. His CODE STATUS had been switched to DNR CCA and plan was for extubation today. Patient was subsequently extubated to room air. Objective Data Objective Data Vital Signs: Vital Signs Temp Pulse Resp BP Pulse Ox O2 Del Method O2 Flow Rate 97.6 F L 93 18 108/73 85 Room Air 2 09/27/23 12:00 09/27/23 15:00 09/27/23 15:00 09/27/23 15:00 09/27/23 15:00 09/27/23 15:00 09/27/23 14:00 FiO2 40 09/27/23 11:00 Oxygen Flow Rate (L/min) 2 Oxygen Delivery Method Room Air Weight: 136 lb 10.986 oz Body Mass Index (BMI) 17.5 Intake & Output: Intake and Output for Last 24 Hours 09/25/23 09/26/23 09/27/23 23:59 23:59 23:59 Intake Total 1010 / 1010 3340.57 / 3340.57 Output Total 800 / 800 Balance 1010 / 1010 2540.57 / 2540.57 Lab / Micro Data 09/27/23 05:18 09/27/23 05:18 Labs: Laboratory Results - last 24 hr 09/26/23 21:30: WBC 22.8 H, RBC 3.51 L, Hgb 11.3 L, Hct 37.9 L, MCV 108.0 H D, MCH 32.2 H, MCHC 29.8 L D, RDW Std Deviation 58.9 H, RDW Coeff of Tony 14.7 H, Plt Count 491 H, MPV 9.7, Immature Gran % (Auto) 3.900 H, Neut % (Auto) 69.9, Lymph % (Auto) 15.9 L, [place] % (Auto) 9.7, Eos % (Auto) 0.4, Baso % (Auto) 0.2, Absolute Neuts (auto) 15.9 H, Absolute Lymphs (auto) 3.61, Nucleated RBC % 0.1, Differential Comment SCANNED, Diff Path Review Reviewed, PT 16.6 H, INR 1.3, APTT 37.2 H, Sodium 135 L, Potassium 5.6 H, Chloride 95 L, Carbon Dioxide 24.0, Anion Gap 16 H, BUN 25 H, Creatinine 1.15, Estim Creat Clear Calc 67.84, Est GFR (MDRD) Af Amer 82, Est GFR (MDRD) Non-Af 68, BUN/Creatinine Ratio 21.7 H, Glucose 198 H, Calcium 9.6, Total Bilirubin 0.30, AST 22, ALT 29, Alkaline Phosphatase 86, Troponin I High Sens 20, Total Protein 5.9 L, Albumin 2.6 L, Globulin 3.3, Albumin/Globulin Ratio 0.8 L, Procalcitonin 0.06 09/26/23 21:38: Lactic Acid 15.5 H* 09/26/23 21:41: Urine Color Yellow, Urine Clarity Sl. Cloudy, Urine pH 7.0, Ur Specific [place] 1.010, Urine Protein 15 H, Urine Glucose (UA) Normal, Urine Ketones Negative, Urine Occult Blood Negative, Urine Nitrite Negative, Urine Bilirubin Negative, Urine Urobilinogen Normal, Ur Leukocyte Esterase Negative, Urine RBC 0 SEEN, Urine WBC 0-5 SEEN, Ur Squamous Epith Cells 0 SEEN, Urine Bacteria 1+, Urine Mucus 0 SEEN 09/26/23 22:38: Potassium 4.3, Phosphorus 7.8 H, Magnesium 2.7 H 09/27/23 02:25: Lactic Acid 4.2 H*, Troponin I High Sens 244 H* 09/27/23 05:18: WBC 28.1 H, RBC 2.86 L, Hgb 9.4 L, Hct 28.1 L, MCV 98.3 H D, MCH 32.9 H, MCHC 33.5 D, RDW Std Deviation 51.9 H, RDW Coeff of Tony 14.6, Plt Count 346, MPV 9.4, Immature Gran % (Auto) 0.700, Neut % (Auto) 93.9 H, Lymph % (Auto) 1.1 L, [place] % (Auto) 4.2, Eos % (Auto) 0.0, Baso % (Auto) 0.1, Absolute Neuts (auto) 26.3 H, Absolute Lymphs (auto) 0.30 L, Nucleated RBC % 0, Differential Comment SCANNED, Sodium 141, Potassium 2.7 L*, Chloride 111 H, Carbon Dioxide 24.0, Anion Gap 6, BUN 21 H, Creatinine 0.61 L, Estim Creat Clear Calc 80.73, Est GFR (MDRD) Af Amer 170, Est GFR (MDRD) Non-Af 141, BUN/Creatinine Ratio 34.4 H, Glucose 123 H, Hemoglobin A1c 5.7 H, Calcium 5.8 L*, Total Bilirubin 0.30, AST 50 H, ALT 42, Alkaline Phosphatase 49, Total Creatine Kinase 195, Troponin I High Sens 215 H*, Total Protein 3.7 L, Albumin 1.6 L, Globulin 2.1 L, Albumin/Globulin Ratio 0.8 L, Triglycerides 65 Micro: Microbiology 09/26/23 23:39 Sputum, Induced/Lukens Gram Stain - Final 09/26/23 21:41 Urine Catheter - Shah Streptococcus pneumoniae Antigen (M - Final 09/26/23 21:41 Urine Catheter - Shah Legionella Antigen - Final ABG Data ABG results: ABG 09/26/23 09/26/23 21:43 23:59 Specimen Type ART ART Sample Site L RADIAL L Radial pH 6.81 L* 7.36 Bicarbonate Actual 22.5 29.0 H Total CO2 27 31 Base Excess -12 L 4 H O2 Saturation 92 L 100 H O2 % 100.0 ABG pCO2 142.2 H* 51.6 H ABG pO2 122 H 346 H* Javier Test POS Positive Respiration Rate 18 O2 Delivery Device BAGGING Adult Vent Liter Flow 15.0 Vent Mode AC Tidal Volume 500.0 POC PEEP 5 Crit Call To/Read Back Yes Yes Blood Gas Notified Whom ED MD Dempsey Blood Gas Notified Time 2142 00:01:[address] Dempsey notified Radiography Diagnostic Testing: Radiology Impression Chest X-Ray 09/26/23 21:55 IMPRESSION: 1. Recommend advancing enteric tube several centimeters to clear distal side-port from level of GE junction. 2. COPD. Electronically Signed: Arnav Yee MD at 22:21 EDT , Physical Exam Const Constitutional Narrative: lethargic, frail, intubated, sedated, RASS score is -4 HEENT normocephalic and head/scalp atraumatic Mouth: dry mucous membranes Eyes PERRL Neck no lymphadenopathy and supple Lymph Lymphatic: no lymphadenopathy noted Resp Resp Narrative: intubated, sedated, RASS score is -4. diminished breath sounds bibasally, few crackles. no wheezes. Effort and Inspection: tachypneic and respiratory distress Cardio regular rate, regular rhythm, S1 normal heart sound and S2 normal heart sound Palpation: normal PMI GI normal to inspection, nondistended, normoactive bowel sounds, soft to palpation, non-tender and non-distended Extremity normal capillary refill, no clubbing, cyanosis or edema and no calf tenderness Skin General Skin Exam: no breakdown Neuro Neuro Narrative: intubated, sedated, RASS score is -4 Assessment & Plan Assessment/Plan (1) Hypercapnic respiratory failure: (2) Acute and chronic respiratory failure with hypoxia: PLAN: Plan # Acute cardiopulmonary arrest due to acute on chronic hypercapnic and hypoxic respiratory failure * Passed out while he was out working in his yard. Patient is an 11 DNR CCA DO NOT INTUBATE, however upon arrival in the ED his CODE STATUS was not known so he was intubated. * On IV Solu-Medrol. Breathing treatments bronchodilators. On IV Zosyn. Critical care on board. Blood cultures and MRSA screen ordered. * Critical care met with patient's POA today and patient was extubated. Hospice also consulted. * #Acute on chronic hypoxic and hypercapnic respiratory failure: Management as above #GUS: #History of paroxysmal A-fib: Coreg held on admission due to acute cardiopul monary arrest. #History o of erosive esophagitis with esophageal candidiasis: Currently n.p.o. as he is intubated. On IV PPI. Hemoglobin on admission was 11.3. #History of chronic alcohol use disorder: Currently sober. #History of throat cancer: S/p resection. Follow-up with oncologist as needed #Severe protein calorie malnutrition: BMI is only 17.5. Nutrition consulted #Hypertension: BP meds on hold due to hypotension on admission DVT prophylaxis: Lovenox Disposition: Patient extubated today and plan is for hospice consult. For likely transfer to hospice if considered appropriate for hospice transfer and evaluation. Charges/Coding Visit Charges Inpatient E&M: 90858 Subs Hosp L3
--- NOTE | 2023-09-27 16:08 | CASEMGMT ---
Hospice is at [facility] and meeting with Salinas, patient's POA. SW explained to Salinas that if patient happens to not qualify for the inpatient unit SW will be in touch with him tomorrow to work on picking a detention. LONI updated another CHEMICAL ETCH OPERATOR on this as well. Plan: Inpatient Hospice unit if patient qualifies and if not SW will follow up tomorrow regarding nursing homes. Estelita Ferrari SUPERVISOR PATCHING INO
[2023-09-27] MEDS: Menthol/Lanolin/Calamine/Znox 113 GM Tube 1 APPLIC TOPICAL (18:30)
[2023-09-27] MEDS: 0.9% Saline Lock 10 ML Syringe IV (18:31)
--- NOTE | 2023-09-28 07:33 | DS.PCM_ITS ---
Providers Date of Admission: 09/26/23 Date of Discharge: 09/27/23 Primary Care Physician: MICHAEL Mejias Consultations 09/27/23 00:46 Consult: [employer] / Pulmonary Medicine Routine Consulting Provider: Yann Amaya Reason for Consult: Resp failure, Cardiopulmonary arrest, shock EMERGENT Consult: No Notified: Yes Date Notified: 09/26/23 Time Notified: 23:51 Method of Notification: Text 09/27/23 12:48 Consult: Hospice / Palliative Care Routine Consulting Provider: [facility] Reason for Consult: end of life care EMERGENT Consult: No Notified: Yes Date Notified: 09/27/23 Time Notified: 12:48 Method of Notification: Verbal Reason For Visit: CARDIOPULMONARY ARREST, PRESUMED RESP MEDIATED Diagnosis Discharge Diagnosis (1) Hypercapnic respiratory failure: Status: Acute Code(s): J96.92 - Respiratory failure, unspecified with hypercapnia (2) Acute and chronic respiratory failure with hypoxia: Status: Chronic Code(s): J96.21 - Acute and chronic respiratory failure with hypoxia Plan # Acute cardiopulmonary arrest due to acute on chronic hypercapnic and hypoxic respiratory failure * Passed out while he was out working in his yard. Patient is an 11 DNR CCA DO NOT INTUBATE, however upon arrival in the ED his CODE STATUS was not known so he was intubated. * On IV Solu-Medrol. Breathing treatments bronchodilators. On IV Zosyn. Critical care on board. Blood cultures and MRSA screen ordered. * Critical care met with patient's POA today and patient was extubated. Hospice also consulted. * #Acute on chronic hypoxic and hypercapnic respiratory failure: Management as above #GUS: #History of paroxysmal A-fib: Coreg held on admission due to acute cardiopulmonary arrest. #History o of erosive esophagitis with esophageal candidiasis: Currently n.p.o. as he is intubated. On IV PPI. Hemoglobin on admission was 11.3. #History of chronic alcohol use disorder: Currently sober. #History of throat cancer: S/p resection. Follow-up with oncologist as needed #Severe protein calorie malnutrition: BMI is only 17.5. Nutrition consulted #Hypertension: BP meds on hold due to hypotension on admission DVT prophylaxis: Lovenox Disposition: Patient extubated today and plan is for hospice consult. For likely transfer to hospice if considered appropriate for hospice transfer and evaluation. Medications at Discharge Home Medications albuterol sulfate 2.5 mg/3 mL (0.083 %) solution for nebulization 2.5 mg (3 mL) inhalation Q2H PRN PRN Dyspnea, wheezing #0 mL 08/21/23 lactose-reduced food with fiber 0.06 gram-1.5 kcal/mL oral liquid (Jevity 1.5 Jason) 240 ml G-tube 6X/DAY #0 mL 08/21/23 multivitamin-iron 9 mg-folic acid 400 mcg-calcium and minerals tablet (Thera peutic-M) 1 tab feeding tube BREAKFAST #0 tabs 08/21/23 acetaminophen 325 mg tablet 650 mg feeding tube Q4H PRN PRN Fever, pain 1-03/0508/28/23 carvedilol 6.25 mg tablet 6.25 mg feeding tube BIDCM 30 days #60 tabs 09/19/23 guaifenesin 200 mg/5 mL oral liquid 600 mg (15 mL) feeding tube Q4H PRN c ongestion #118 mL 09/19/23 lansoprazole 15 mg capsule,delayed release 30 mg (2 x 15 mg) G-tube DAILY 1 month #60 caps 09/19/23 magnesium oxide 400 mg feeding tube DAILY 1 month #30 caps 09/19/23 melatonin 5 mg capsule 5 mg feeding tube DAILY 30 days #30 caps 09/19/23 metoclopramide HCl 10 mg tablet (Reglan) 10 mg feeding tube Q8 1 month #90 tabs 09/19/23 nicotine 14 mg/24 hr daily transdermal patch 14 mg transdermal DAILY #28 ea 09/19/23 dexamethasone 0.5 mg/5 mL oral elixir 1 mg (10 mL) PO DAILY #50 mL 09/21/23 ipratropium 0.5 mg-albuterol 3 mg (2.5 mg base)/3 mL nebulization soln 3 ml inhalation Q4HWA.RT PRN SOB 1 month #180 mL 09/23/23 albuterol sulfate 90 mcg/actuation aerosol inhaler 2 puff inhalation Q6H PRN shortness of breath or wheezing 1 month #8.5 grams 09/25/23 prednisone 10 mg tablet 10 mg feeding tube DAILY #30 tabs 09/25/23 Hospital Course Operations None Procedures None Summary of Care Provided Minutes Spent on Discharge: 65 Hospital Course: Patient is a 63-year-old male with a past medical history as outlined was admitted through the ED on 09/26/2023 with a complaint of shortness of breath. Michael castro had a history of chronic respiratory failure due to COPD and recurrent aspiration and admitted admitted multiple times for this. This time patient came in after being found unresponsive. He collapsed in front of her friend. EMS initially had a pulse but lost the pulse also was on arrival to the hospital. He was therefore managed for acute cardiopulmonary arrest with pulseless electrical activity. He was resuscitated via ACLS and given multiple rounds of epinephrine. He subsequently had eventual return of spontaneous circulation. On admission white cell count was elevated and ABG showed pH of 6.8 with P CO2 of 142 and pO2 of 122. Chemistry was significant for potassium of 5.6 and lactic acid was elevated at 15 with elevated troponin of 244. Patient was intubated on admission in the ED. Chest x-ray showed no acute cardiopulmonary process. He was placed empirically on antibiotics and bronchodilators as well as steroids and managed for acute cardiopulmonary arrest likely due to acute hypoxic and hypercapnic respiratory failure in the setting of COPD. It turned out that patient actually had a DO NOT RESUSCITATE DO NOT INTUBATE CODE STATUS but this was unknown in the ED so he was intubated there. On the subsequent day, patient's POA decided to switch CODE STATUS to DNR CCA without intubation as per patient's wishes. Patient was therefore terminally extubated. Hospice was consulted. Patient was discharged to hospice medical facility on 09/27/2023. Patient was seen and examined on the day of discharge. He remained intubated and sedated. Unable to do review of systems. Physical Exam Const Constitutional Narrative: lethargic, frail, intubated, sedated, RASS score is -4 HEENT normocephalic and head/scalp atraumatic Eyes PERRL Neck no lymphadenopathy and supple Lymph Lymphatic: no lymphadenopathy noted Resp Resp Narrative: intubated, sedated, RASS score is -4. diminished breath sounds bibasally, few crackles. no wheezes. Effort and Inspection: tachypneic and respiratory distress Cardio regular rate, regular rhythm, S1 normal heart sound and S2 normal heart sound Palpation: normal PMI GI normal to inspection, nondistended, normoactive bowel sounds, soft to palpation, non-tender and non-distended Extremity normal capillary refill, no clubbing, cyanosis or edema and no calf tenderness Skin General Skin Exam: no breakdown Neuro Neuro Narrative: intubated, sedated, RASS score is -4 Weight / BMI Weight Weight: 136 lb 10.986 oz Body Mass Index (BMI) 17.5 ABG / Lab / Microbiology Data 09/27/23 05:18 09/27/23 05:18 Laboratory: Laboratory Results - last 24 hr 09/26/23 21:30: Diff Path Review Reviewed 09/27/23 05:18: Hemoglobin A1c 5.7 H, Total Creatine Kinase 195, Triglycerides 65 Microbiology: Microbiology 09/26/23 23:39 Sputum, Induced/Lukens Gram Stain - Final 09/26/23 21:41 Urine Catheter - Shah Streptococcus pneumoniae Antigen (M - Final 09/26/23 21:41 Urine Catheter - Shah Legionella Antigen - Final Meaningful Use Info Meaningful Use Meaningful Use Diagnoses (Choose all that apply): None applicable Ischemic Stroke Statin Dosing Therapy Reference: STATIN DOSE THERAPY REFERENCE: * Patients > 75 years receive moderate or high dose statin therapy. * Patients 75 years or YOUNGER should receive HIGH intensity statin dose unless contraindicated. You will be required to document reason for non-treatment if statin daily dose does not meet guidelines. HIGH DOSE STATIN THERAPY DAILY Atorvastatin > than or = to 40 mg Rosuvastatin > than or = to 20 mg Amlodipine + Atorvastatin > than or = to 2.5/40 mg Ezetimibe + Simvastatin 10/80 mg Simvastatin 80mg Discharge Plan Admission Admit Date/Time: 09/26/23 23:47 Attending Provider: Nettie Dykes Primary Care Provider: Cha Powell Consulting Providers: Loren Marte; Tavares Jiang; Mendy Montiel; Kelsea Chu; Bee Trevino PIANO MOVER Discharge Orders/Prescriptions Prescriptions: No Action albuterol sulfate 2.5 mg /3 mL (0.083 %) Solution For Nebulization 2.5 mg inhalation Q2H PRN PRN (Reason: Dyspnea, wheezing) Qty: 0 0RF Therapeutic-M 9 mg iron-400 mcg Tablet 1 tab feeding tube BREAKFAST Qty: 0 0RF Jevity 1.5 Jason 0.06 gram-1.5 kcal/mL Liquid 240 ml G-tube 6X/DAY Qty: 0 0RF nicotine 14 mg/24 hr Patch 24 Hour 14 mg transdermal DAILY Qty: 28 0RF guaifenesin 200 mg/5 mL liquid 600 mg feeding tube Q4H PRN (Reason: congestion) Qty: 118 0RF carvedilol 6.25 mg Tablet 6.25 mg feeding tube BIDCM 30 Days Qty: 60 3RF lansoprazole 15 mg Capsule,Delayed Release(Dr/Ec) 30 mg G-tube DAILY 30 Days Qty: 60 0RF metoclopramide HCl [Reglan] 10 mg tablet 10 mg feeding tube Q8 30 Days Qty: 90 0RF melatonin 5 mg capsule 5 mg feeding tube DAILY 30 Days Qty: 30 0RF magnesium oxide 400 mg magnesium capsule 400 mg feeding tube DAILY 30 Days Qty: 30 0RF acetaminophen 325 mg Tablet 650 mg feeding tube Q4H PRN PRN (Reason: Fever, pain 1-03/05) dexamethasone 0.5 mg/5 mL elixir 1 mg PO DAILY Qty: 50 0RF ipratropium-albuterol 0.5 mg-3 mg(2.5 mg base)/3 mL Solution For Nebulization 3 ml inhalation Q4HWA.RT PRN (Reason: SOB) 30 Days Qty: 180 0RF albuterol sulfate 90 mcg/actuation HFA aerosol inhaler 2 puff inhalation Q6H PRN (Reason: shortness of breath or wheezing) 30 Days Qty: 8.5 0RF prednisone 10 mg tablet 10 mg feeding tube DAILY Qty: 30 0RF Rx Instructions: 40 mg for 3 days 30 mg for 3 days, 20 mg for 3 days,and 10 mg for 3 days Referrals / Follow Up: Cha Powell PA [Primary Care Provider] - Disposition Disposition (needs filled in before D/C Order can be placed): Hospice in Medical Facility Charges/Coding Visit Charges Inpatient E&M: 77100 Disch Hosp >30min
== END 2023-09-28 01:05 | disposition hospice, inpatient (51) | DRG 208 ==
LOC: ED 23:27 → ICU 23:58
PROVIDERS: Admitting Provider Family Medicine; Emergency Provider Emergency Medicine; PCP Physician Assistant; Visit Provider Student in an Organized Health Care Education/Training Program
DX: J96.22 Acute and chronic respiratory failure with hypercapnia (principal); I46.8 Cardiac arrest due to other underlying condition; E43 Unspecified severe protein-calorie malnutrition; R57.9 Shock, unspecified; G93.1 Anoxic brain damage, not elsewhere classified; E87.20 Acidosis, unspecified; J44.1 Chronic obstructive pulmonary disease with (acute) exacerbation; N17.9 Acute kidney failure, unspecified; E87.1 Hypo-osmolality and hyponatremia; Z68.1 Body mass index [BMI] 19.9 or less, adult; I48.0 Paroxysmal atrial fibrillation; J96.21 Acute and chronic respiratory failure with hypoxia; I10 Essential (primary) hypertension; F10.11 Alcohol abuse, in remission; E78.5 Hyperlipidemia, unspecified; Z99.81 Dependence on supplemental oxygen; Z91.199 Patient's noncompliance with other medical treatment and regimen due to unspecified reason; R73.9 Hyperglycemia, unspecified; Z66 Do not resuscitate; Z87.891 Personal history of nicotine dependence; R13.10 Dysphagia, unspecified
CPT/HCPCS: 31720; 36600; 51702; 71045; 71046; 80053; 81001; 82550; 82803; 83036; 83605; 83735; 84100; 84132; 84145; 84478; 84484; 85025; 85610; 85730; 87040; 87070; 87077; 87086; 87088; 87186; 87205; 87449; 92950; 93005; 94002; 94003; 94640; 97802; 99282; 99285; J7030; J7040; A4216